=== PATIENT | male | born 1955 | race Caucasian/White ===

== ENCOUNTER 2021-05-01 06:29 | Outpatient (REF) | payer OTHER, SELFPAY | END 2021-05-01 06:30 | disposition home or self-care (01) | LOC: HO.LAB 06:29 | PROVIDERS: PCP Internal Medicine; Visit Provider Internal Medicine | DX: Z20.822 Contact with and (suspected) exposure to COVID-19 (principal) | CPT/HCPCS: C9803; U0003; U0005 ==

== ENCOUNTER 2021-07-25 06:19 | Outpatient (REF) | payer OTHER, SELFPAY | END 2021-07-25 06:20 | disposition home or self-care (01) | LOC: HO.LAB 06:19 | PROVIDERS: Visit Provider Internal Medicine | DX: Z20.822 Contact with and (suspected) exposure to COVID-19 (principal) | CPT/HCPCS: C9803; U0003; U0005 ==

== ENCOUNTER 2021-10-20 08:12 | Emergency (ER) | payer OTHER, SELFPAY ==
--- NOTE | ~2021-10-20 | CT_ITS ---
EXAMINATION: CT ABDOMEN AND PELVIS WITH CONTRAST CLINICAL INFORMATION: Hematuria. COMPARISON: None TECHNIQUE: Multidetector volumetric images were obtained from the superior aspect of the liver through the pubic symphysis following administration 85 mL of Omnipaque 350 intravenous contrast. Sagittal and coronal reformatted images were obtained on the technologist's workstation. Oral contrast: No This CT examination was performed using dose optimization techniques as appropriate, variously including the following: *Automated exposure control *Adjustment of mA and/or kV according to patient size (this includes techniques or standardized protocols for targeted exams where dose is matched to indication/reason for exam; i.e. extremities or head) *Use of iterative reconstruction technique DLP: 521 mGy-cm FINDINGS: LUNG BASES: Linear airspace disease is noted at right lung base, likely represent hypoventilatory, atelectatic changes. LIVER, GALLBLADDER, AND BILIARY TREE: Subtle subcapsular hypodensity is noted without any mass effect within the left lobe, likely represent focal area of fatty infiltration. The remainder of the liver otherwise appear unremarkable. Calcified gallstones are present within the gallbladder without evidence of any wall thickening or pericholecystic fluid or features of biliary obstruction. PANCREAS: Unremarkable. SPLEEN: Solitary circumscribed hypodensity is noted within the central part of the spleen (161:4) with Hounsfield value of 11, consistent with an incidental cyst. ADRENAL GLANDS: Mild thickening of the left adrenal gland is noted without evidence of any discrete mass. KIDNEYS AND URETERS: The kidneys are normal in size, shape, and attenuation. No hydronephrosis, hydroureter, or calculi seen. No perinephric stranding. Subcentimeter hypodensities are noted within the right kidney, too small for accurate characterization, statistically likely represent incidental cysts. BLADDER: Abnormal, suboptimally distended, shows diffuse wall thickening and mucosal enhancement and dense radiopaque vesical calculus versus phlebolith along the left lateral wall (539:4). The base of the bladder is displaced superiorly by a large heterogeneous abnormal enlarged prostate. GASTROINTESTINAL TRACT: The small and large bowel are unremarkable. The appendix is nonvisualized. ABDOMINAL WALL: No significant hernia is appreciated. LYMPH NODES: Normal. VASCULAR: Diffuse atherosclerotic disease of the aorta without aneurysm formation. PELVIC VISCERA: The prostate is markedly enlarged, quite heterogeneous and is protruding into the base of the bladder, measures 8.3 x 6.7 x 9.6 cm at its maximum transverse by anteroposterior by craniocaudal dimension. OSSEOUS STRUCTURES: No suspicious focal lesion. Moderate diffuse osteopenia. CT/CT abdomen pelvis w con IMPRESSION: 1. Abnormal markedly enlarged heterogeneous prostate, protruding into the base of the bladder, measures 8.3 x 6.7 x 9.6 cm. The bladder is suboptimally distended, shows diffuse wall thickening and mucosal enhancement. Note is also made of approximately 1 cm maximum dimension radiopaque density inseparable from the left lateral wall of the bladder, may represent vesical calculus versus phlebolith. Suboptimally evaluated due to lack of bladder distention. 2. Both upper urinary tracts appear unremarkable. 3. Mild thickening of the left adrenal gland without evidence of any discrete mass. 4. Calcified gallstones without any CT features of superimposed acute cholecystitis or biliary obstruction. 5. Subtle subcapsular hypodensity within the left lobe of the liver likely represent focal area of fatty infiltration. 6. Splenic cyst. 7. Diffuse atherosclerotic disease of the aorta and is branches. 8. Moderate diffuse osteopenia. Fleischner guidelines were followed.
[2021-10-20 08:17] VITALS: BP 117/80; PULSE 100; RESP 18; TEMP 35.8; O2SAT 98; BMI 24.4
--- NOTE | 2021-10-20 08:35 | ED.MALEGU ---
HPI - Male Genitourinary General Chief complaint: Urogenital-Male Stated complaint: Blood in urine Time Seen by Provider: 10/20/21 08:23 Source: patient Mode of arrival: ambulatory Limitations: no limitations History of Present Illness HPI Narrative: 66 y/o male with history of BPH, elevated PSA, chronic back pain who presents to the ER from home with acute onset of bloody urine, pain with urination and incomplete bladder emptying that started yesterday morning. He reports his urine is dark red and had some clots and yesterday. His symptoms have been worsening over last 24 hours. He denies any fever, chills, nausea, vomiting, diarrhea or flank pain. He does report some discomfort in his lower abdomen and suprapubic area. He is on Flomax for BPH and just saw a provider at [facility] with plan for a CT scan and a prostate biopsy for his elevated PSA. He reports a single episode of transient hematuria in the past and was told it was due to exercising too hard. ? MD Complaint: dysuria and other (Hematuria and incomplete bladder emptying) Onset (ago): day(s) (1) Duration: progressively worsening Location: abdomen Severity: moderate Severity scale (1-10): 6 Quality: aching and burning Relieving factors: none Exacerbating factors: urination Associated symptoms: Reports blood in urine and dysuria Related Data Previous Rx's Medication Instructions Recorded levofloxacin 750 mg tablet 750 mg PO DAILY #10 tab 10/20/21 Allergies Allergy/AdvReac Type Severity Reaction Status Date / Time No Known Allergies Allergy Verified 10/20/21 08:24 Review of Systems Review of Systems: Constitutional: No Fever, No Chills ENT/Mouth: No sore throat, No Rhinorrhea, No Swallowing Difficulty Cardiovascular: No Chest Pain, No SOB, No Orthopnea, No Edema Respiratory: No Cough, No Sputum, No Wheezing, No dyspnea Gastrointestinal: No Nausea, No Vomiting, No Diarrhea, + abdominal Pain, No Hematochezia, No Melena, No rectal pain, No constipation Genitourinary: + Dysuria, + Urinary Frequency, + Hematuria Musculoskeletal: No joint pain, No Myalgias Skin: No Skin Lesions, No rash Neuro: No Weakness, No Numbness, No Dizziness, No Headache Psych: No Anxiety/Panic, No Depression Heme/Lymph: No Bruising, No Lymphadenopathy Endocrine: No Polyuria, No Polydipsia PMFSH Past Medical History Medical History (Updated 10/20/21 @ 11:26 by SREE Ly) Detached retina Hernia Social History Social History Advance Directives: No Advance Directives Information Provided: No Physical Exam Vital Signs: Vital Signs: Last Vital Signs Temp 96.4 F L 10/20/21 08:17 Pulse 100 10/20/21 08:17 Resp 18 10/20/21 08:17 BP 117/80 10/20/21 08:17 Pulse Ox 98 10/20/21 08:17 BMI result Body Mass Index 24.4 Appearance: Alert. Oriented X3. No acute distress. Eyes: Pupils equal, round and reactive to light. ENT: Pharynx normal. Neck: Normal inspection. Neck supple. CVS: Normal heart rate and rhythm. Pulses normal. Respiratory: No respiratory distress. Breath sounds normal. Abdomen: Soft with mild suprapubic tenderness, no rebound or guarding. +BS x4 Skin: Skin warm and dry. Normal skin color. Normal skin turgor. No rashes. Extremities: No lower extremity edema. Neuro: Oriented X 3. No motor deficit. No sensory deficit. Course Course Course Narrative: 66-year-old male with history of BPH, elevated PSA, chronic back pain who presents with acute onset of hematuria, dysuria, frequency and incomplete bladder emptying. Concern for possible UTI. There is also concern for possible malignancy given his elevated PSA. He is due for a CT scan and a biopsy. He has been having difficulty arranging the CT scan given his insurance and referral issues. Will plan to check his urinalysis, basic lab workup and CT scan for further evaluation of his hematuria. Reevaluation(s) Reevaluation #1: Urinalysis is dark red and grossly bloody with some small clots. Bladder scan revealed about 230cc retained urine post-void. He reported quarter sized clots at home that he was passing yesterday. Will plan to place [address] way Dahl catheter and irrigate the bladder to assess for clots and obstruction. Lab workup showing normal renal function. CT scan is pending. Reevaluation #2: Urinalysis is indicative UTI with hematuria. IV Levaquin ordered with plan for a 10 day course of fluoroquinolone. After CBI was initiated his urine cleared up right away, however there was return of some dark pink coloration and small clots. No large clots visible. Reevaluation #3: CT scan showing abnormally markedly enlarged prostate protruding into the base of the bladder. It measures 8.3 x 6.7 x 9.6 cm. The bladder wall is diffusely thickened. His hematuria is mild with ongoing CBI. He is not on anticoagulation. Anticipate will be able to discontinue this and discharge him home with oral antibiotics in Urology follow-up p.r.n. he is a patient of [facility]. Additional Reevaluation(s): Levaquin infusion complete. Hematuria significantly improved. Stable for d/c home with PO abx and Urology follow up. MDM - Male Genitourinary Lab Data Result diagrams: 10/20/21 08:45 10/20/21 08:45 Labs: Lab Results 10/20/21 10/20/21 10/20/21 Range/Units 08:45 08:45 08:45 WBC 8.8 (4.8-10.8) X10*3/uL RBC 5.57 (4.60-5.80) X10*6/uL Hgb 15.1 (14.0-18.0) g/dl Hct 45.5 (42.0-52.0) % MCV 81.7 (80.0-98.0) fL MCH 27.1 (27.0-33.0) pg MCHC 33.2 (31.0-36.0) g/dl RDW 13.7 (11.0-16.0) % Plt Count 275 (160-400) X10*3/uL MPV 10.0 (9.4-12.4) fL Immature Gran % (Auto) 0.2 (0.0-0.4) % Neut % (Auto) 76.1 H (45-73) % Lymph % (Auto) 14.9 L (20-40) % [place] % (Auto) 7.5 (2-11) % Eos % (Auto) 0.6 (0-4) % Baso % (Auto) 0.7 (0-2) % Lymph # (Auto) 1.3 (1.2-4.9) X10*3/uL [place] # (Auto) 0.7 (0.1-1.2) X10*3/uL Eos # (Auto) 0.1 (0.0-0.4) X10*3/uL Baso # (Auto) 0.1 (0.0-0.2) X10*3/uL Abs Immat Gran (auto) 0.02 (0.00-0.03) X10*3/uL Absolute Neuts (auto) 6.7 (2.0-8.3) x10*3/uL Absolute Nucleated RBC 0.000 (0.0-0.012) X10*3/uL Nucleated RBC % (auto) 0.0 (0.0-0.2) /100WBC PT 12.8 (9.9-13.0) SEC INR 1.1 (0.9-1.1) APTT 34.5 (24.1-38.0) SEC Sodium 140 (135-145) mmol/L Potassium 4.1 (3.3-5.1) mmol/L Chloride 107 (96-108) mmol/L Carbon Dioxide 21 L (22-29) mmol/L Anion Gap 16 (12-20) BUN 32 H (9-16) mg/dL Creatinine 1.11 (0.5-1.4) mg/dL Estim Creat Clear Calc 75.9 Estimated GFR > 60 Random Glucose 98 (60-115) mg/dL Calcium 9.8 (8.4-10.2) mg/dL Magnesium 2.3 (1.6-2.6) mg/dL Total Bilirubin 0.7 (0.0-1.0) mg/dL Direct Bilirubin 0.3 (0.0-0.5) mg/dL AST 17 (5-37) U/L ALT 17 (0-40) U/L Alkaline Phosphatase 66 (39-117) U/L Total Protein 7.3 (6.5-8.0) g/dL Albumin 4.6 (3.5-5.0) g/dL Urine Color Urine Appearance Urine pH (5.0-8.0) Ur Specific [place] (1.005-1.025) Urine Protein (NEG-TRACE) MG/DL Urine Glucose (UA) (NEG) MG/DL Urine Ketones (NEG) MG/DL Urine Blood (NEG) Urine Nitrite (NEG) Ur Leukocyte Esterase (NEG) Urine RBC (0) /HPF Urine WBC (0-4) /HPF Ur Squamous Epith Cells /LPF Urine Bacteria /LPF 10/20/21 Range/Units 09:32 WBC (4.8-10.8) X10*3/uL RBC (4.60-5.80) X10*6/uL Hgb (14.0-18.0) g/dl Hct (42.0-52.0) % MCV (80.0-98.0) fL MCH (27.0-33.0) pg MCHC (31.0-36.0) g/dl RDW (11.0-16.0) % Plt Count (160-400) X10*3/uL MPV (9.4-12.4) fL Immature Gran % (Auto) (0.0-0.4) % Neut % (Auto) (45-73) % Lymph % (Auto) (20-40) % [place] % (Auto) (2-11) % Eos % (Auto) (0-4) % Baso % (Auto) (0-2) % Lymph # (Auto) (1.2-4.9) X10*3/uL [place] # (Auto) (0.1-1.2) X10*3/uL Eos # (Auto) (0.0-0.4) X10*3/uL Baso # (Auto) (0.0-0.2) X10*3/uL Abs Immat Gran (auto) (0.00-0.03) X10*3/uL Absolute Neuts (auto) (2.0-8.3) x10*3/uL Absolute Nucleated RBC (0.0-0.012) X10*3/uL Nucleated RBC % (auto) (0.0-0.2) /100WBC PT (9.9-13.0) SEC INR (0.9-1.1) APTT (24.1-38.0) SEC Sodium (135-145) mmol/L Potassium (3.3-5.1) mmol/L Chloride (96-108) mmol/L Carbon Dioxide (22-29) mmol/L Anion Gap (12-20) BUN (9-16) mg/dL Creatinine (0.5-1.4) mg/dL Estim Creat Clear Calc Estimated GFR Random Glucose (60-115) mg/dL Calcium (8.4-10.2) mg/dL Magnesium (1.6-2.6) mg/dL Total Bilirubin (0.0-1.0) mg/dL Direct Bilirubin (0.0-0.5) mg/dL AST (5-37) U/L ALT (0-40) U/L Alkaline Phosphatase (39-117) U/L Total Protein (6.5-8.0) g/dL Albumin (3.5-5.0) g/dL Urine Color BROWN A Urine Appearance TURBID Urine pH 6.5 (5.0-8.0) Ur Specific [place] 1.025 (1.005-1.025) Urine Protein 3+ H (NEG-TRACE) MG/DL Urine Glucose (UA) SEE NOTE (NEG) MG/DL Urine Ketones SEE NOTE (NEG) MG/DL Urine Blood 3+ H (NEG) Urine Nitrite POS H (NEG) Ur Leukocyte Esterase 2+ H (NEG) Urine RBC TNTC H (0) /HPF Urine WBC TNTC H (0-4) /HPF Ur Squamous Epith Cells 1+ /LPF Urine Bacteria 2+ /LPF Critical Care Time Critical Care Time Critical Care Time: Yes Total Critical Care Time: 38 Attestation: I have personally provided critical care time exclusive of time spent on separately billable procedures. Time includes review of lab data, radiology results, frequent reassessments, and monitoring for potential decompensation. Intervention performed as documented. Discharge Plan Discharge Clinical Impression: Urinary tract infection, Gross hematuria, Enlarged prostate Patient Disposition: Home, Self-Care Instructions: Enlarged Prostate (BPH) (ED), Urinary Tract Infection in Men (DC), Hematuria (ED) Additional Instructions: Your urine test today showed you have a bladder infection. Your given the 1st dose of IV antibiotics today in the emergency room. Start taking the prescribed oral antibiotic, starting tomorrow. Complete the entire course. Increase oral hydration, drink plenty of water. Your CT scan showed very large prostate gland, recommend following back up with [facility] for biopsy. If you have worsening symptoms despite antibiotic therapy call your doctor or come back to the ER for further evaluation. Prescriptions: New levofloxacin 750 mg tablet 750 mg PO DAILY Qty: 10 0RF Referrals: Stephen Davis MD [Primary Care Provider] - 2 days (UTI with gross hematuria, enlarged prostate gland.) Stand Alone Forms: Work/School Release
[2021-10-20] MEDS: 0.9 % Sodium Chloride 1,000 ML 999 ML IVCONT (08:46)
[2021-10-20 08:52] LABS: MANUAL DIFF FLAG NO
[2021-10-20 09:01] LABS: Basophils Absolute Auto 0.1 X10*3/uL (0.0-0.2); Basophils Percent Auto 0.7 % (0-2); Eosinophils Absolute Auto 0.1 X10*3/uL (0.0-0.4); Eosinophils Percent Auto 0.6 % (0-4); Hematocrit 45.5 % (42.0-52.0); Hemoglobin 15.1 g/dl (14.0-18.0); Imm Gran Abs Auto 0.02 X10*3/uL (0.00-0.03); Imm Gran Pct Auto 0.2 % (0.0-0.4); Lymphocytes Absolute Auto 1.3 X10*3/uL (1.2-4.9); Lymphocytes Percent Auto 14.9 % (20-40); Mean Corpuscular HGB Conc 33.2 g/dl (31.0-36.0); Mean Corpuscular Hemoglobin 27.1 pg (27.0-33.0); Mean Corpuscular Volume 81.7 fL (80.0-98.0); Monocytes Absolute Auto 0.7 X10*3/uL (0.1-1.2); Monocytes Percent Auto 7.5 % (2-11); Neutrophils Absolute Auto 6.7 x10*3/uL (2.0-8.3); Neutrophils Percent Auto 76.1 % (45-73); Platelet Count 275 X10*3/uL (160-400); Red Blood Count 5.57 X10*6/uL (4.60-5.80); Red Cell Distribution Width 13.7 % (11.0-16.0); White Blood Count 8.8 X10*3/uL (4.8-10.8)
[2021-10-20 09:02] LABS: INTERNATIONAL NORM RATIO 1.1 (0.9-1.1); Prothrombin Time 12.8 SEC (9.9-13.0)
[2021-10-20 09:05] LABS: Partial Thromboplastin Time 34.5 SEC (24.1-38.0)
[2021-10-20 09:15] LABS: Alanine Aminotransferase 17 U/L (0-40); Albumin Level 4.6 g/dL (3.5-5.0); Alkaline Phosphatase 66 U/L (39-117); Anion Gap 16 (12-20); Aspartate Amino Transferase 17 U/L (5-37); Bilirubin Direct 0.3 mg/dL (0.0-0.5); Bilirubin Total 0.7 mg/dL (0.0-1.0); Blood Urea Nitrogen 32 mg/dL (9-16); Calcium 9.8 mg/dL (8.4-10.2); Carbon Dioxide 21 mmol/L (22-29); Chloride 107 mmol/L (96-108); Creatinine Clr Calc Pharmacy 75.9; Estimated Glomerular Filt Rate > 60; Glucose Random 98 mg/dL (60-115); Magnesium 2.3 mg/dL (1.6-2.6); Potassium 4.1 mmol/L (3.3-5.1); Sodium 140 mmol/L (135-145); Total Protein 7.3 g/dL (6.5-8.0)
--- NOTE | 2021-10-20 09:41 | PC.NURSE ---
Pt voided dark red urine for urine sample. PCT in to bedside for bladder scan to check PVR.
--- NOTE | 2021-10-20 09:41 | PC.NURSE ---
PVR 221, provider aware
[2021-10-20 09:55] LABS: Appearance Urine TURBID; Color Urine BROWN; Leukocyte Esterase Urine 2+ (NEG); Nitrite Urine POS (NEG); PH 6.5 (5.0-8.0); Specific Gravity - Urine 1.025 (1.005-1.025); UACC Culture Trigger YES; Urine Blood 3+ (NEG); Urine Protein 3+ MG/DL (NEG-TRACE)
[2021-10-20 10:00] LABS: Bacteria Urine 2+ /LPF; RBC Urine TNTC /HPF (0); Squamous Epithelial Cell Urine 1+ /LPF; WBC Urine TNTC /HPF (0-4)
[2021-10-20] MEDS: iohexoL 350 MG/ML 100 ML INFUS..BTL IV (10:24)
[2021-10-20] MEDS: Phenazopyridine HCL 100 MG TABLET PO (10:40)
[2021-10-20] MEDS: Lidocaine HCl 2 % Urojet 10 ML JEL.PF.APP TOPICAL (10:40)
[2021-10-20] MEDS: levoFLOXacin/D5W 750 MG/150 ML PIGGYBACK 100 MG IV (11:07)
[2021-10-20 13:07] VITALS: BP 139/78; PULSE 77; RESP 15; O2SAT 98
--- NOTE | 2021-10-20 13:08 | PC.NURSE ---
gerardo cath removed at this time. patient noted to have lightly tea colored urine. patient aware of need to continue to aggressive hydration at home to prevent formation of new clots. patient in no obvious distress at this time.
== END 2021-10-20 13:11 | disposition home or self-care (01) ==
PROVIDERS: Physician Assistant; Emergency Provider Emergency Medicine Emergency Medical Services; PCP Internal Medicine
DX: N39.0 Urinary tract infection, site not specified (principal); N40.0 Benign prostatic hyperplasia without lower urinary tract symptoms; R31.9 Hematuria, unspecified; R30.0 Dysuria; Z79.899 Other long term (current) drug therapy
CPT/HCPCS: 36415; 51702; 74177; 80048; 80076; 81001; 83735; 85025; 85610; 85730; 87086; 87088; 96365; 96366; 99284; J1956; Q9967

== ENCOUNTER → 2021-11-13 09:47 | Outpatient (BNVA) | payer OTHER, SELFPAY | PROVIDERS: PCP Internal Medicine; Visit Provider Urology | DX: N40.1 Benign prostatic hyperplasia with lower urinary tract symptoms (principal); N39.0 Urinary tract infection, site not specified; R31.0 Gross hematuria; A49.9 Bacterial infection, unspecified | CPT/HCPCS: 99202 ==

== ENCOUNTER 2021-12-19 06:59 | Outpatient (REF) | payer OTHER, SELFPAY ==
[2021-12-19 08:48] LABS: COVID-19 Test Negative (Negative)
== END 2021-12-19 07:00 | disposition home or self-care (01) ==
LOC: HO.LAB 06:59
PROVIDERS: Visit Provider Internal Medicine
DX: Z20.822 Contact with and (suspected) exposure to COVID-19 (principal)
CPT/HCPCS: 87635; C9803

== ENCOUNTER → 2022-01-01 09:04 | Outpatient (BNVA) | payer OTHER, SELFPAY | PROVIDERS: PCP Internal Medicine; Visit Provider Urology | DX: N40.1 Benign prostatic hyperplasia with lower urinary tract symptoms (principal); N13.8 Other obstructive and reflux uropathy; N39.0 Urinary tract infection, site not specified; R31.0 Gross hematuria; A49.9 Bacterial infection, unspecified | CPT/HCPCS: 52000 ==

== ENCOUNTER → 2022-01-16 08:49 | Outpatient (BNVA) | payer OTHER, SELFPAY | PROVIDERS: PCP Internal Medicine; Referring Provider Internal Medicine; Visit Provider Surgery | DX: I83.90 Asymptomatic varicose veins of unspecified lower extremity (principal) ==

== ENCOUNTER 2022-02-27 08:09 | Outpatient (REF) | payer OTHER, SELFPAY ==
--- NOTE | ~2022-02-27 | US_ITS ---
EXAMINATION: US LOWER EXTREMITY VENOUS (REFLUX EXAM), LEFT CLINICAL INDICATION: Left lower extremity varicose veins. COMPARISON: None. TECHNIQUE: Color flow triplex imaging and compression Doppler was performed to evaluate both the deep and the superficial systems of the lower extremity. To evaluate the superficial system, the examination was performed in the upright position. Color-flow Doppler ultrasound and compression ultrasound were utilized. In addition, maneuvers were utilized to demonstrate reflux. FINDINGS: 1. DEEP VENOUS DOPPLER ULTRASOUND: Common Femoral Vein: Compressible, normal respiratory variation and augmented flow. FEMORAL VEIN: Compressible, normal color flow and augmentation. POPLITEAL VEIN: Compressible, normal augmentation. DEEP REFLUX: There is greater than 0.9 seconds of reflux within the common femoral vein and greater than 0.8 seconds of reflux within the popliteal vein. There is no evidence of a Wilkins's cyst. 2. SUPERFICIAL VENOUS DOPPLER ULTRASOUND: GREAT SAPHENOUS VEIN: Saphenofemoral Junction: 1.5 cm; greater than 2.5 seconds of reflux. Proximal Thigh: 1.5 cm; No evidence of reflux. Mid Thigh: 0.7 cm; greater than 2.4 seconds of reflux Above Knee: 0.6 cm; greater than 3.4 seconds of reflux At Knee: 0.6 cm; greater than 3.4 seconds of reflux Below Knee: 0.8 cm; greater than 3.0 seconds of reflux Mid Calf: 0.5 cm; greater than 1.5 seconds of reflux DUPLICATED GREAT SAPHENOUS VEIN: None. SMALL SAPHENOUS VEIN: Proximal: 0.2 cm; No evidence of reflux. Distal: 0.3 cm; No evidence of reflux. VEIN OF GIACOMINI: None imaged. PERFORATORS: Distal calf measuring 4 mm, no evidence of reflux. VARICOSITIES: Proximal thigh and throughout the calf measuring between 4 and 5 mm. VARICOSITIES demonstrate greater than 2 seconds of reflux. US/US venous duplex LE LT IMPRESSION: 1. Left great saphenous venous insufficiency beginning at the saphenofemoral junction. 2. Multiple refluxing left lower extremity varicosities. 3. Deep venous insufficiency involving the common femoral and popliteal veins. 4. No evidence of DVT.
[2022-02-27 10:22] LABS: Prostate Specific Antigen 16.24 ng/mL (<0.05-4.0)
== END 2022-02-27 08:10 | disposition home or self-care (01) ==
LOC: HO.US 08:09
PROVIDERS: Urology; Visit Provider Surgery
DX: Z12.5 Encounter for screening for malignant neoplasm of prostate (principal); N13.8 Other obstructive and reflux uropathy; N40.1 Benign prostatic hyperplasia with lower urinary tract symptoms; I83.90 Asymptomatic varicose veins of unspecified lower extremity
CPT/HCPCS: 36415; 84153; 93971

== ENCOUNTER → 2022-03-06 09:22 | Outpatient (BNVA) | payer OTHER, SELFPAY | PROVIDERS: PCP Internal Medicine; Visit Provider Urology | DX: N40.1 Benign prostatic hyperplasia with lower urinary tract symptoms (principal); N13.8 Other obstructive and reflux uropathy; R31.0 Gross hematuria; N39.0 Urinary tract infection, site not specified; A49.9 Bacterial infection, unspecified | CPT/HCPCS: 51798 ==

== ENCOUNTER 2022-04-21 09:10 | Day surgery (SDC) | payer OTHER, SELFPAY ==
[2022-04-15 12:06] VITALS: BMI 23.6
[2022-04-21] VITALS (21 sets, daily range): BP systolic 89–127; BP diastolic 48–75; PULSE 42–69; RESP 14–18; TEMP 36.1–36.6; O2SAT 94–98; BMI 23.1
[2022-04-21] MEDS: Acetaminophen 325 MG TABLET 650 MG PO ×2 (09:55→13:58)
--- NOTE | 2022-04-21 10:18 | P.CONAN_ITS ---
FORM[facility] Active Problems Active Problems: All Active Problems (Updated 04/21/22 @ 07:58 by Rod Phillips MD) Elevated PSA (Acute) BPH w urinary obs/LUTS (Acute) UTI (urinary tract infection), bacterial (Acute) Gross hematuria (Acute) Varicose vein of leg (Acute) Past Medical History Medical History Detached retina Hernia Family History Family History Sister Melanoma Family history of problems with anesthesia: No Surgical History Surgical History History of eye surgery History of umbilical hernia repair Hx of varicose vein ligation History of Problems with Anesthesia: No Social History Social History Alcohol intake: never Patient Tobacco Use Status: Never used Tobacco Tobacco use type: Cigarette Use of substances other than those prescribed or required for medical reasons: No Are you DNR?: No Advance Directives: No Advance Directives Information Provided: Yes Meds Allergies Allergy/AdvReac Type Severity Reaction Status Date / Time No Known Allergies Allergy Verified 04/10/22 10:42 Active Medications: Current Medications Lactated Ringer's (Lr) 1,000 mls @ 50 mls/hr IVCONT .Q20H PERNELL Exam Exam Date and Time: April 21, 2022 1018 Height,Weight and Vital Signs: Height 6 ft 1 in Weight 79.379 kg Last Vital Signs Temp 97.9 F 04/21/22 09:45 Pulse 69 04/21/22 09:45 Resp 17 04/21/22 09:45 BP 114/75 04/21/22 09:45 Pulse Ox 96 04/21/22 09:45 O2 Del Method 04/21/22 09:45 Airway Mallampati Class: II TM Dist: >3cm Neck ROM: Full Heart: rrr Lungs: cta Assessment and Plan Assessment Anesthesia Assessment: Anesthesia Plan Discussed and Chart Reviewed Final Anesthetic Review Family History of Problems with Anesthesia: No History of Problems with Anesthesia: No NPO: Yes ASA Class: II Final Preanesthetic Review: No Changes in Pt Med Stat, Meds/Allgs Chart Reviewed and Consent Obtained/Reviewed Patient Risk: Intermediate Procedure Risk: Intermediate Anesthetic Plan Anesthetic Plan: GA Disposition: Standard PACU
--- NOTE | 2022-04-21 10:41 | MHC.SHP ---
Pre-Procedural Eval Section A Date of Service: 04/21/22 The patient is an INPATIENT: No Changes since office visit: No Cold of Flu in the past 2 weeks, No New Medical Problems, No Changes in Medication and No Patient answered all questions The History & Physical has been completed within 30 days and I have reviewed it.: Yes Section B Chief Complaint: bph Details of Present Illness: elevated PSA with BPH - plan GreenLight laser prostate with prostate biopsy Relevant Family History (Specify if Yes): No Relevant Social History: None Present Medications: see Short Stay Collaborative assessment Medical History: No relevant PMH History of Previous Operations: Relevant previous surgery/procedure and date(s) Allergies: Allergies Allergy/AdvReac Type Severity Reaction Status Date / Time No Known Allergies Allergy Verified 04/10/22 10:42 Review of Systems Sugical H&P ROS: Negative: Constitution, Cardiovascular, Respiratory, Neurological, Psychiatric, Hem-Onc, Allergic/Immunologic, Gastrointestinal, Genitourinary, Musculoskeletal, Integumentary, Endocrine and Eyes/Ears/Nose/Throat Exam Surgical H&P Exam: Normal: HEENT, Normal: Heart, Normal: Lungs, Normal: Extremities, Normal: Abdomen, Normal: Skin and Normal: Neurological Plan Diagnosis/Plan: Unchanged ( GreenLight laser prostate, prostate biopsy) I have reviewed the history and physical and performed a pertinent physical examination on my patient. No changes have occurred unless specified.
--- NOTE | 2022-04-21 12:45 | P.OP_ITS ---
Operative Note Operative Note Date of Service: 04/21/22 Narrative: PreOperative Diagnosis: Bladder outlet obstruction, elevated PSA Post Operative Diagnosis: Bladder outlet obstruction, elevated PSA Procedure: 1.) transrectal ultrasound measurement of prostate 2) transrectal ultrasound-guided biopsy of prostate 3)GreenLight Laser Enucleation of the prostate 4) right stent placement Surgeon: Dr Rod Phillips Anesthesia: General History of bladder outlet obstruction. Treated with alpha-mike and other medications. Still with symptoms. On cystoscopy in office has trilobar prostate enlargement.. Recommendation for prostate procedure with laser enucleation of prostate. In addition has PSA that after 4 months of treatment with finasteride remains at 16. Recommendation prostate biopsy. It has been discussed. Focus was placed on development of retrograde examination which is a normal part of this procedure. Procedure: After informed consent was verified the patient was brought to the operating room and placed in a supine position. Anesthesia was administered per protocol. Patient was placed in modified dorsal lithotomy position and prepped and draped in a sterile fashion. Safety pause time-out was confirmed. Antibiotics have been given. Iodine 10cc with Gel was placed per rectum Ultrasound probe was placed per rectum The prostate was measured in 3 dimensions Total volume equals 210 gm There were no cystic structures and no calcifications noted and the prostate was homogeneous in nature A ultrasound-guided pudendal nerve block was performed using 10 cc of 1% lidocaine. 8 cc was placed at the base and 2 cc of the apex. A 12 core biopsy was performed with 6 cores each side. Two cores were taken at the apex, mid and base. Cores were spaced between lateral and medial. Twenty-four Salvadorean laser cystoscope was inserted per urethra. No abnormalities found the anterior posterior urethra. The bladder was filled on both ureteric orifices were seen in normal position Right ureteric orifice was very close to the Edge of the extremely large median lobe. Using a GreenLight laser settings of 80 w incisions were made at the 5 and 7 o'clock position. They were taken down and then laterally on each side. They were brought from the bladder neck down to the level of the veru. These defined the lateral aspects of the median lobe area. The large median lobe was divided down the middle into 2 separate pieces. The median lobe was ablated and enucleated tissue removed. A great deal of time was spent removing the median lobe tissue. As the case progresses a decision was made not to proceed with me moving lateral lobes which is concentrating on clearing the median lobe area as he had an extremely large prostate. The left ureteric orifice was seen in normal position. The right ureteric orifice was retracted into the incision area from secondary laser scatter. At the point where we decided to complete the procedure the right ureteric orifice had been retracted. The bipolar resectoscope loop was placed. And on cutting used to expose the right ureteric orifice. A Sensor guidewire was placed up the right ureteric orifice and a 6Fr by 28 cm double-J stent was placed in order to let the ureteric orifice heal in an open position. When this was completed debris and pieces of prostate removed from the bladder. The apical area was reviewed in any stray ooze was controlled. A 22 [place] 30 cc balloon Dahl catheter was placed over stylet into the bladder. Clear efflux was obtained. 30 cc was placed in the balloon and gentle traction was placed. A snap was used to hold tension once the patient will be moved and transported. Once transportation its finish this novel be removed. A belladonna and opiate suppository was placed for postprocedure pain management. He tolerated procedure well was extubated in the operating and transferred in a stable condition to the recovery area. Total Power 190 kW 46 lasing time Pathology: Prostate tissue Drains: Dahl catheter
--- NOTE | 2022-04-21 14:22 | ECG_ITS ---
Test Reason : CP Blood Pressure : / mmHG Vent. Rate : 052 BPM Atrial Rate : 052 BPM P-R Int : 212 ms QRS Dur : 108 ms QT Int : 538 ms P-R-T Axes : 041 050 027 degrees QTc Int : 500 ms Sinus bradycardia with 1st degree A-V block with Premature atrial complexes Low voltage QRS Nonspecific ST abnormality Prolonged QT Abnormal ECG When compared with ECG of 21-APR-2022 17:29, Premature atrial complexes are now Present Referred By: Rod Phillips Electronically Signed By:SABRINA BYRNE
--- NOTE | 2022-04-21 15:05 | PC.NURSE ---
PATIENT ARRIVED TO DISCHARGE AREA. PT STATED HE WANTED TO GET UP TO THE RESTROOM. PATIENT NOTED TO BE UNSTEADY. THIS RN ASKED HOW PATIENT WAS FEELING AND HE STATED HE WAS FEELING DIZZY. PATIENT BACK IN WC AND THE ANESTHESIOLOGIST CAME TO RE ACCESS. PATIENT'S SBP IN THE 70'S AND 80'S, HR IN THE 40'S AND 50'S. PT BROUGHT BACK TO PACU. IV INITIATED BY BAIT PACKER AND FLUIDS TO BE HUNG. PT'S CALLED TO GIVE HER AN UPDATE.
[2022-04-21 15:46] LABS: MANUAL DIFF FLAG NO
[2022-04-21 15:47] LABS: Basophils Percent Auto 0.4 % (0-2); Eosinophils Percent Auto 0.1 % (0-4); Hematocrit 35.3 % (42.0-52.0); Hemoglobin 11.5 g/dl (14.0-18.0); Imm Gran Abs Auto 0.03 X10*3/uL (0.00-0.03); Imm Gran Pct Auto 0.3 % (0.0-0.4); Lymphocytes Absolute Auto 0.6 X10*3/uL (1.2-4.9); Lymphocytes Percent Auto 6.1 % (20-40); Mean Corpuscular HGB Conc 32.6 g/dl (31.0-36.0); Mean Corpuscular Volume 82.9 fL (80.0-98.0); Mean Platelet Volume 10.2 fL (9.4-12.4); Monocytes Absolute Auto 0.4 X10*3/uL (0.1-1.2); Monocytes Percent Auto 4.6 % (2-11); Neutrophils Absolute Auto 8.2 x10*3/uL (2.0-8.3); Neutrophils Percent Auto 88.5 % (45-73); Platelet Count 161 X10*3/uL (160-400); Red Blood Count 4.26 X10*6/uL (4.60-5.80); Red Cell Distribution Width 15.6 % (11.0-16.0); White Blood Count 9.2 X10*3/uL (4.8-10.8)
[2022-04-21 15:53] LABS: INTERNATIONAL NORM RATIO 1.1 (0.9-1.1); Prothrombin Time 13.1 SEC (10.0-13.1)
[2022-04-21 15:56] LABS: Partial Thromboplastin Time 24.4 SEC (26.0-36.4)
[2022-04-21 16:05] LABS: Anion Gap 14 (12-20); Blood Urea Nitrogen 25 mg/dL (9-16); Calcium 8.5 mg/dL (8.4-10.2); Carbon Dioxide 22 mmol/L (22-29); Chloride 112 mmol/L (96-108); Creatinine Clr Calc Pharmacy 87.9; Estimated Glomerular Filt Rate > 60; Glucose Random 148 mg/dL (60-115); Potassium 4.7 mmol/L (3.3-5.1); Sodium 143 mmol/L (135-145)
[2022-04-21] MEDS: Tranexamic Acid 1,000 MG in 0.9 % Sodium Chloride 50 ML 360 MG IV (16:37)
[2022-04-21 17:08] LABS: Fibrinogen 382 MG/DL (259-690)
--- NOTE | 2022-04-21 18:35 | PC.NURSE ---
1834 Dr. Cartwright at bedside to review consult with cardiology Dr. Reddy regarding EKG recent. Patient asymptomatic no sob, dizziness, chest pain. Per cadiology EKG recent taken today no acute changes. Per Dr. Cartwright patient cleared to discharge to home. Patient reports previous hx EKG test at [facility]. Call placed to [facility] who reports patient hx previous EKG incomplete RBBB.
--- NOTE | 2022-04-22 14:16 | ECG_ITS ---
Test Reason : URO Blood Pressure : / mmHG Vent. Rate : 051 BPM Atrial Rate : 051 BPM P-R Int : 202 ms QRS Dur : 114 ms QT Int : 540 ms P-R-T Axes : -23 054 034 degrees QTc Int : 497 ms Sinus bradycardia Prolonged QT Abnormal ECG No previous ECGs available Referred By: Rod Phillips Electronically Signed By:SABRINA BYRNE
== END 2022-04-21 18:55 | disposition home or self-care (01) ==
PROVIDERS: Anesthesiology; Visit Provider Urology
PROC: (CPT 52648; principal; 2022-04-21 10:50)
DX: N40.1 Benign prostatic hyperplasia with lower urinary tract symptoms (principal); N13.8 Other obstructive and reflux uropathy; R97.20 Elevated prostate specific antigen [PSA]; Z79.899 Other long term (current) drug therapy; Z98.890 Other specified postprocedural states
CPT/HCPCS: 52649; 55700; 52332; 36415; 76942; 80048; 85025; 85384; 85610; 85730; 88305; 93005; C1769; C2617; J1100; J1956; J2250; J2405; J3010; Q9968

== ENCOUNTER → 2022-04-24 10:04 | Outpatient (BNVA) | payer OTHER, SELFPAY | PROVIDERS: PCP Internal Medicine; Visit Provider Urology | DX: N13.8 Other obstructive and reflux uropathy (principal) | CPT/HCPCS: 51700; 51798 ==

== ENCOUNTER 2022-04-26 07:10 | Emergency (ER) | payer OTHER, SELFPAY ==
[2022-04-26 07:30] VITALS: BP 123/80; PULSE 92; RESP 20; TEMP 36.7; O2SAT 99; BMI 23.1
--- NOTE | 2022-04-26 08:11 | PC.NURSE ---
attempted to insert a gerardo cath but unsuccessful at this time,
--- NOTE | 2022-04-26 08:33 | ED_ITS ---
HPI - Male Genitourinary General Chief complaint: Urogenital-Male Stated complaint: Unable to Urinate S/P Surgery Time Seen by Provider: 04/26/22 08:10 Source: patient Mode of arrival: ambulatory Limitations: no limitations History of Present Illness HPI Narrative: Patient presents emergency department for evaluation of inability to urinate. He states on Thursday, 5 days ago, he had a GreenLight procedure done by Dr. Phillips for his prostate. He was able to void initially in office. He has been on antibiotics. He has been voiding small frequent amounts since then, however he states that the last time he was able to urinate was yesterday evening at 1700, approx 15 hours ago. Is having suprapubic pain/pressure. Related Data Previous Rx's Medication Instructions Recorded finasteride 5 mg tablet 5 mg PO DAILY 90 days #90 tabs 11/13/21 terazosin 10 mg capsule 10 mg PO BEDTIME 90 days #90 caps 11/13/21 sulfamethoxazole 400 1 tab PO DAILY #10 tabs 04/21/22 mg-trimethoprim 80 mg tablet (Bactrim) tranexamic acid 650 mg tablet 650 mg PO BID 5 days #10 tabs 04/21/22 Allergies Allergy/AdvReac Type Severity Reaction Status Date / Time No Known Allergies Allergy Verified 04/22/22 09:15 Review of Systems Review of Systems: Constitutional : No Weight loss, No Fever, No Chills ENT/Mouth :? No sore throat, No Rhinorrhea Eyes: No Swelling, No Redness Cardiovascular : No Chest Pain, No SOB, No Edema Respiratory : No Cough, No Sputum, No Wheezing Gastrointestinal : No Nausea, no Vomiting, no Diarrhea, positive abdominal pain, No Hematochezia, No Melena Genitourinary : Positive urinary retention Musculoskeletal : No joint pain, No Myalgias, No Joint Swelling Skin : No Skin Lesions, No rash Neuro : No Weakness, No Numbness, No Dizziness, No Headache Psych : No Anxiety/Panic, No Depression Heme/Lymph: No Bruising, No Lymphadenopathy Endocrine : No Polyuria, No Polydipsia Yes all other systems are reviewed and are negative [facility] Past Medical History Attestation statement: The following information was validated with the patient. Source: old records reviewed Medical History Detached retina Hernia Surgical History History of eye surgery History of umbilical hernia repair Hx of varicose vein ligation Family History Family History Sister Melanoma Social History Social History Alcohol intake: never Patient Tobacco Use Status: Former Tobacco user Quit Date: 20 years ago Tobacco use type: Cigarette Advance Directives: Yes Advance Directives Information Provided: Yes Advance Directives on File: No Physical Exam Vital Signs: Vital Signs: Last Vital Signs Temp 98.1 F 04/26/22 07:30 Pulse 92 04/26/22 07:30 Resp 20 04/26/22 07:30 BP 123/80 04/26/22 07:30 Pulse Ox 99 04/26/22 07:30 O2 Del Method 04/26/22 07:30 BMI result Body Mass Index 23.1 Appearance: Alert.?Oriented to person, place and time. No acute distress.?Normal affect. Eyes: Pupils equal, round and reactive to light.? ENT: Pharynx normal.?? Neck: Normal inspection.? Neck supple.?? CVS: Heart sounds normal. Normal heart rate and rhythm.? Pulses normal.?? Respiratory: No respiratory distress.? Lung sounds clear to auscultation bilat erally?? Abdomen: Soft and non-tender. Normoactive bowel sounds. Palpable bladder distension Skin: Skin warm and dry.? Normal skin color.? Extremities: No lower extremity edema.? Neuro: Moves all extremities spontaneously. Sensation intact bilaterally. No motor deficits Ambulates with normal steady gait. Course Course Course Narrative: Patient is a 67-year-old male with a past medical history of urinary tract infection, BPH with bladder outlet obstruction, on 04/21/2022 underwent ultrasound-guided biopsy of prostate, GreenLight laser enucleation of the prostate, and right stent placement. Currently prescribed Bactrim twice daily, and TXA twice daily postoperatively. Bladder scan volume of 999 nursing staff unable to insert Dahl catheter. Uro jet utilized with 16 [place] coude catheter, patient placed in Trendelenburg, able to successfully insert catheter, with active urinary drainage. Suprapubic pain relieved after insertion. Will obtain CBC, CMP, and urinalysis. Reevaluation(s) Reevaluation #1: CBC reveals a normocytic anemia. CMP overall unremarkable. Urinalysis reveals small mass leuk esterase, currently on Bactrim, nitrate negative, large amounts of blood improved team to the urine. At this time will discharge patient home with Dahl catheter in place, discussed management of Dahl catheterat home, reviewed worsening signs and symptoms return back to the emergency department for, advised contacting Dr. Phillips's office first thing Thursday morning to arrange for a follow-up visit. Patient verbalized understanding, all questions were answered, he was discharged home in stable condition MDM - Male Genitourinary Medical Records Attestation: I reviewed the patient's medical records. Lab Data Attestation: I reviewed the patient's lab results. Result diagrams: 04/26/22 09:24 04/26/22 09:24 Labs: Lab Results 04/26/22 04/26/22 04/26/22 Range/Units 09:24 09:24 09:24 WBC 8.4 (4.8-10.8) X10*3/uL RBC 4.40 L (4.60-5.80) X10*6/uL Hgb 11.8 L (14.0-18.0) g/dl Hct 35.7 L (42.0-52.0) % MCV 81.1 (80.0-98.0) fL MCH 26.8 L (27.0-33.0) pg MCHC 33.1 (31.0-36.0) g/dl RDW 15.1 (11.0-16.0) % Plt Count 190 (160-400) X10*3/uL MPV 10.1 (9.4-12.4) fL Immature Gran % (Auto) 0.5 H (0.0-0.4) % Neut % (Auto) 72.9 (45-73) % Lymph % (Auto) 15.2 L (20-40) % [place] % (Auto) 10.0 (2-11) % Eos % (Auto) 0.7 (0-4) % Baso % (Auto) 0.7 (0-2) % Lymph # (Auto) 1.3 (1.2-4.9) X10*3/uL [place] # (Auto) 0.8 (0.1-1.2) X10*3/uL Eos # (Auto) 0.1 (0.0-0.4) X10*3/uL Baso # (Auto) 0.1 (0.0-0.2) X10*3/uL Abs Immat Gran (auto) 0.04 H (0.00-0.03) X10*3/uL Absolute Neuts (auto) 6.1 (2.0-8.3) x10*3/uL Absolute Nucleated RBC 0.000 (0.0-0.012) X10*3/uL Nucleated RBC % (auto) 0.0 (0.0-0.2) /100WBC Sodium 140 (135-145) mmol/L Potassium 4.2 (3.3-5.1) mmol/L Chloride 108 (96-108) mmol/L Carbon Dioxide 21 L (22-29) mmol/L Anion Gap 15 (12-20) BUN 29 H (9-16) mg/dL Creatinine 1.05 (0.5-1.4) mg/dL Estim Creat Clear Calc 78.7 Estimated GFR > 60 Random Glucose 101 (60-115) mg/dL Calcium 8.8 (8.4-10.2) mg/dL Total Bilirubin 0.8 (0.0-1.0) mg/dL AST 17 (5-37) U/L ALT 21 (0-40) U/L Alkaline Phosphatase 52 D (39-117) U/L Total Protein 6.1 L (6.5-8.0) g/dL Albumin 3.9 (3.5-5.0) g/dL Urine Color Dark Yellow Urine Appearance Cloudy Urine pH 5.5 (5.0-9.0) Ur Specific [place] 1.020 (1.005-1.025) Urine Protein 100 (2+) H (Neg-Trace) mg/dL Urine Glucose (UA) Negative (Negative) mg/dL Urine Ketones Trace (Negative) mg/dL Urine Blood Large (3+) H (Negative) Urine Nitrite Negative (Negative) Ur Leukocyte Esterase Small (1+) H (Negative) Urine RBC >20 H (0-2) /HPF Urine WBC 11-20 H (0-5) /HPF Ur Squamous Epith Cells 3-5 (0-2) /HPF Calcium Oxalate Crystal Present Urine Bacteria None Seen (None Seen) Hyaline Casts 0-2 (0-2) /LPF Discharge Plan Discharge Clinical Impression: Acute urinary retention Patient Disposition: Home, Self-Care Instructions: Dahl Catheter Placement and Care (ED) Additional Instructions: You were retaining a significant amount of urine when you came to the emergency department, therefore a Dahl catheter was reinserted. Please continue taking your medications as prescribed, and contact Dr. Phillips's office first thing Thursday morning to schedule a follow-up appointment. Return to the emergency department any new or worsening symptoms or concerns. Prescriptions: No Action sulfamethoxazole-trimethoprim [Bactrim] 400-80 mg tablet 1 tab PO DAILY Qty: 10 0RF tranexamic acid 650 mg tablet 650 mg PO BID 5 Days Qty: 10 0RF finasteride 5 mg tablet 5 mg PO DAILY 90 Days Qty: 90 1RF terazosin 10 mg capsule 10 mg PO BEDTIME 90 Days Qty: 90 1RF
[2022-04-26] MEDS: Lidocaine HCl 2 % Urojet 10 ML JEL.PF.APP TOPICAL (09:01)
[2022-04-26 09:31] LABS: MANUAL DIFF FLAG NO
[2022-04-26 09:35] LABS: Basophils Absolute Auto 0.1 X10*3/uL (0.0-0.2); Basophils Percent Auto 0.7 % (0-2); Eosinophils Absolute Auto 0.1 X10*3/uL (0.0-0.4); Eosinophils Percent Auto 0.7 % (0-4); Hematocrit 35.7 % (42.0-52.0); Hemoglobin 11.8 g/dl (14.0-18.0); Imm Gran Abs Auto 0.04 X10*3/uL (0.00-0.03); Imm Gran Pct Auto 0.5 % (0.0-0.4); Lymphocytes Absolute Auto 1.3 X10*3/uL (1.2-4.9); Lymphocytes Percent Auto 15.2 % (20-40); Mean Corpuscular HGB Conc 33.1 g/dl (31.0-36.0); Mean Corpuscular Hemoglobin 26.8 pg (27.0-33.0); Mean Corpuscular Volume 81.1 fL (80.0-98.0); Mean Platelet Volume 10.1 fL (9.4-12.4); Monocytes Absolute Auto 0.8 X10*3/uL (0.1-1.2); Neutrophils Absolute Auto 6.1 x10*3/uL (2.0-8.3); Neutrophils Percent Auto 72.9 % (45-73); Platelet Count 190 X10*3/uL (160-400); Red Cell Distribution Width 15.1 % (11.0-16.0); White Blood Count 8.4 X10*3/uL (4.8-10.8)
[2022-04-26 09:37] LABS: Appearance Urine Cloudy; Color Urine Dark Yellow; Glucose Urine UA Negative (Negative); Leukocyte Esterase Urine Small (1+) (Negative); Nitrite Urine Negative (Negative); PH 5.5 (5.0-9.0); Urine Blood Large (3+) (Negative); Urine Ketones Trace mg/dL (Negative); Urine Protein 100 (2+) mg/dL (Neg-Trace)
[2022-04-26 09:52] LABS: Alanine Aminotransferase 21 U/L (0-40); Albumin Level 3.9 g/dL (3.5-5.0); Alkaline Phosphatase 52 U/L (39-117); Anion Gap 15 (12-20); Aspartate Amino Transferase 17 U/L (5-37); Bilirubin Total 0.8 mg/dL (0.0-1.0); Blood Urea Nitrogen 29 mg/dL (9-16); Calcium 8.8 mg/dL (8.4-10.2); Carbon Dioxide 21 mmol/L (22-29); Chloride 108 mmol/L (96-108); Creatinine Clr Calc Pharmacy 78.7; Estimated Glomerular Filt Rate > 60; Glucose Random 101 mg/dL (60-115); Potassium 4.2 mmol/L (3.3-5.1); Sodium 140 mmol/L (135-145); Total Protein 6.1 g/dL (6.5-8.0)
[2022-04-26 10:06] LABS: Bacteria Urine None Seen (None Seen); Calcium Oxalate Crystals Urine Present; Hyaline Casts Urine 0-2 /LPF (0-2); RBC Urine >20 /HPF (0-2); UACC Culture Trigger YES
== END 2022-04-26 10:53 | disposition home or self-care (01) ==
PROVIDERS: Nurse Practitioner Family; Emergency Provider Emergency Medicine; PCP Internal Medicine
DX: R33.9 Retention of urine, unspecified (principal); D64.9 Anemia, unspecified
CPT/HCPCS: 36415; 51702; 80053; 81001; 85025; 87086; 99283; 99284

== ENCOUNTER 2022-04-28 18:13 | Emergency (ER) | payer OTHER, SELFPAY ==
[2022-04-28 18:14] VITALS: BP 115/76; PULSE 99; RESP 18; O2SAT 99; BMI 23.1
--- NOTE | 2022-04-28 19:11 | ED_ITS ---
HPI - Male Genitourinary General Chief complaint: Urogenital-Male Stated complaint: Leaking Catheter Time Seen by Provider: 04/28/22 18:20 Source: patient Mode of arrival: ambulatory Limitations: no limitations History of Present Illness HPI Narrative: 67-year-old male with a history of BPH who had a GreenLight procedure done by Dr. Phillips on 04/21 with subsequent urinary retention necessitating a visit to the ER on April 26 with Dahl catheter placement. Patient returns today as catheter is not draining for the last 3 hours and he is leaking around the catheter site. No additional complaints Related Data Previous Rx's Medication Instructions Recorded finasteride 5 mg tablet 5 mg PO DAILY 90 days #90 tabs 11/13/21 terazosin 10 mg capsule 10 mg PO BEDTIME 90 days #90 caps 11/13/21 sulfamethoxazole 400 1 tab PO DAILY #10 tabs 04/21/22 mg-trimethoprim 80 mg tablet (Bactrim) tranexamic acid 650 mg tablet 650 mg PO BID 5 days #10 tabs 04/21/22 Allergies Allergy/AdvReac Type Severity Reaction Status Date / Time No Known Allergies Allergy Verified 04/22/22 09:15 Review of Systems Review of Systems: Yes all other systems are reviewed and are negative Constitutional: Constitutional: Reports no additional constitutional complaints, Denies body ache(s), Denies chills, Denies fever(s), Denies headache(s) and Denies weakness Eyes: Eyes: Reports no additional eye complaints and Denies change in vision ENT: Reports system reviewed and no additional complaints, except as docu mented, Denies dizziness, Denies headache(s), Denies nasal congestion, Denies nasal discharge and Denies neck pain Cardiovascular: Cardiovascular: Reports no additional cardiovascular complaints, Denies chest pain, Denies leg edema and Denies dyspnea Respiratory: Respiratory: Reports no additional respiratory complaints, Denies cough and Denies dyspnea Gastrointestinal: Gastrointestinal: Reports no additional gastrointestinal complaints, Denies abdominal pain, Denies diarrhea, Denies nausea and Denies vomiting Genitourinary: Genitourinary: Denies urinary incontinence Musculoskeletal: Musculoskeletal: Reports no additional musculoskeletal complaints, Denies back pain, Denies arthralgias, Denies joint swelling, Denies neck pain, Denies numbness and Denies tingling Integumentary/Breasts: Skin/Breast: Reports system reviewed and no additional complaints, except as docu and Denies rash Neurologic: Reports system reviewed and no additional complaints, except as documented, Denies Abnormal speech present, Denies dizziness, Denies headach e(s), Denies numbness, Denies tingling and Denies weakness PMFSH Past Medical History Attestation statement: The following information was validated with the patient. Source: old records reviewed and nursing notes reviewed Medical History Detached retina Hernia Surgical History History of eye surgery History of umbilical hernia repair Hx of varicose vein ligation Family History Family History Sister Melanoma Social History Social History Alcohol intake: never Patient Tobacco Use Status: Former Tobacco user Quit Date: 20 years ago Tobacco use type: Cigarette Advance Directives: No Advance Directives Information Provided: No Physical Exam Vital Signs: Vital Signs: Last Vital Signs Pulse 99 04/28/22 18:14 Resp 18 04/28/22 18:14 BP 115/76 04/28/22 18:14 Pulse Ox 99 04/28/22 18:14 O2 Del Method 04/28/22 18:14 BMI result Body Mass Index 23.1 Const: General: cooperative, healthy appearing, comfortable and no acute distress Orientation/consciousness: patient oriented x3 Limitations: no limitations HEENT: Head: Yes normal to inspection Ears: hearing grossly normal bilaterally General nose exam: Normal external nose present Face and sinus: Yes normal facial exam Mouth: Normal oral and palatal mucosa present Throat: Yes posterior oropharynx normal Eyes: General: appearance normal, both eyes and all related structures Pupils: Equal, round and reactive pupils present Neck: Neck: Yes normal visual inspection Chest: Chest palpation & inspection: normal inspection of the chest Resp: Effort & Inspection: normal respiratory effort Auscultation: clear to auscultation bilaterally Cardio: Rate: regular rate Rhythm: regular rhythm Peripheral pulses: Peripheral pulses 2+ throughout GI: Inspection: Yes normal to inspection Palpation (GI): Soft to palpation and nontender Auscultation: normal bowel sounds Back/Spine/Pelvis: Thoracic/Lumbar Spine: thoracic and lumbar spine normal to inspection Skin: General skin exam: no rashes or lesions noted Neuro: General: patient oriented x3, no focal motor deficits and normal sensation to monofilament Cranial nerves: Yes Equal, round and reactive pupils present Cognition (Neuro): normal cognition Speech: No Abnormal speech present Gait exam (Neuro): Normal gait present Motor exam (neuro): 5/5 motor strength present throughout Extrem: General: Yes normal to inspection Course Course Course Narrative: After the balloon was inflated with additional saline the patient was monitored in the emergency room for 2 hours with no leaking noted around the catheter site and drainage noted in the catheter bag. Plan for discharge home with follow-up with Urology MDM - Male Genitourinary MDM Narrative Medical decision making narrative: 67-year-old male here with a Dahl catheter which was placed for urinary retention with reports of catheter not draining for the last 3 hours and leaking around the catheter site. Her previous nursing note 10 cc of saline was inflated with the balloon. The balloon does hold up to 30 cc. Nursing checked the volume in the balloon and there with 8 cc. An additional 20 cc were added. The Dahl catheter was flushed and there was some sediment noted within the catheter and during the flushing process. The patient was then attached to a drainage bag. Will monitor him for a brief time. Anticipate discharge home Medical Records Attestation: I reviewed the patient's medical records. Lab Data Attestation: I reviewed the patient's lab results. Discharge Plan Discharge Clinical Impression: Complication of Dahl catheter Patient Disposition: Home, Self-Care Instructions: Dahl Catheter Placement and Care (ED) Additional Instructions: Continue your home medications Follow-up with the urologist Return if the Dahl catheter is not draining urine, pain or fever Prescriptions: No Action sulfamethoxazole-trimethoprim [Bactrim] 400-80 mg tablet 1 tab PO DAILY Qty: 10 0RF tranexamic acid 650 mg tablet 650 mg PO BID 5 Days Qty: 10 0RF finasteride 5 mg tablet 5 mg PO DAILY 90 Days Qty: 90 1RF terazosin 10 mg capsule 10 mg PO BEDTIME 90 Days Qty: 90 1RF Referrals: Rod Phillips MD [Physician] - 1 week (as scheduled)
--- NOTE | 2022-04-28 19:40 | PC.NURSE ---
per request of provider, this nurse deflated gerardo balloon- there was 8cc in the balloon, it was reinflated with the 8cc and 20 additional ccs were added as the balloon allots 30ccs. provider requested gerardo cath bag for draining- bag was obtained, provider also requested kit for flushing.
== END 2022-04-28 20:44 | disposition home or self-care (01) ==
PROVIDERS: Emergency Provider Emergency Medicine; PCP Internal Medicine
DX: T83.038A Leakage of other urinary catheter, initial encounter (principal); Y73.8 Miscellaneous gastroenterology and urology devices associated with adverse incidents, not elsewhere classified; Y92.019 Unspecified place in single-family (private) house as the place of occurrence of the external cause
CPT/HCPCS: 99282; 99283

== ENCOUNTER → 2022-05-23 09:55 | Outpatient (BNVA) | payer OTHER, SELFPAY | PROVIDERS: PCP Internal Medicine; Visit Provider Urology | DX: N40.1 Benign prostatic hyperplasia with lower urinary tract symptoms (principal); N13.8 Other obstructive and reflux uropathy | CPT/HCPCS: 51700; 51798 ==

== ENCOUNTER → 2022-06-26 14:26 | Outpatient (BNVA) | payer OTHER, SELFPAY | PROVIDERS: PCP Internal Medicine; Visit Provider Urology | DX: R97.20 Elevated prostate specific antigen [PSA] (principal); N40.1 Benign prostatic hyperplasia with lower urinary tract symptoms; N13.8 Other obstructive and reflux uropathy; R31.0 Gross hematuria; N39.0 Urinary tract infection, site not specified | CPT/HCPCS: 51798 ==

== ENCOUNTER → 2022-07-25 10:23 | Outpatient (BNVA) | payer OTHER, SELFPAY | PROVIDERS: PCP Internal Medicine; Visit Provider Surgery Vascular Surgery | DX: I83.12 Varicose veins of left lower extremity with inflammation (principal); M79.605 Pain in left leg | CPT/HCPCS: 36482 ==

== ENCOUNTER 2022-07-28 10:27 | Outpatient (REF) | payer OTHER, SELFPAY ==
--- NOTE | ~2022-07-28 | US_ITS ---
EXAMINATION: TRIPLEX SCANNING OF LEFT LOWER EXTREMITY; SUPERFICIAL ULTRASOUND WITH DOPPLER OF LEFT LOWER EXTREMITY CLINICAL INFORMATION: Status post Venaseal of the left great saphenous vein COMPARISON: 02/27/2022. TECHNIQUE: Color flow triplex imaging and compression Doppler were performed as well as superficial ultrasound with Doppler. FINDINGS: LEFT LOWER EXTREMITY DEEP VENOUS SYSTEM: Respiratory variation, normal compression and augmented flow are noted throughout the lower extremity. The visualized common femoral vein, femoral vein, profunda femoral vein, popliteal vein and the calf veins show no evidence of deep venous thrombosis. There is no evidence of Wilkins's cyst. SUPERFICIAL VENOUS SYSTEM: The great saphenous vein is occluded from the access site to 0.9 cm before the saphenofemoral junction. There is no extension of thrombus into the deep system. The great saphenous vein in the mid calf is patent US/US venous duplex LE LT IMPRESSION: 1. No evidence of DVT. 2. Excellent appearance status post ablation of the left great saphenous vein.
== END 2022-07-28 10:28 | disposition home or self-care (01) ==
LOC: HO.US 10:27
PROVIDERS: Visit Provider Surgery Vascular Surgery
DX: M79.605 Pain in left leg (principal)
CPT/HCPCS: 93971

== ENCOUNTER 2022-09-19 11:57 | Outpatient (REF) | payer OTHER, SELFPAY ==
[2022-09-19 14:18] LABS: Prostate Specific Antigen 11.54 ng/mL (<0.05-4.0)
== END 2022-09-19 11:58 | disposition home or self-care (01) ==
LOC: HO.LAB 11:57
PROVIDERS: PCP Internal Medicine; Visit Provider Urology
DX: R97.20 Elevated prostate specific antigen [PSA] (principal); Z12.5 Encounter for screening for malignant neoplasm of prostate
CPT/HCPCS: 36415; 84153

== ENCOUNTER 2022-09-22 09:09 | Day surgery (SDC) | payer OTHER, SELFPAY ==
[2022-09-15 15:09] VITALS: BMI 23.1
--- NOTE | 2022-09-19 09:46 | HO.ANESPROP2 ---
Documented by User: Almaz Ojeda NP 09/19/22 09:51 HPI - Anesthesia Eval Consult details Narrative: 67yo M for Left Micro Phlebectomy PMFSH Active Problems Active Problems: All Active Problems (Updated 09/15/22 @ 15:08 by Macey Edwards RN) BPH w urinary obs/LUTS (Acute) UTI (urinary tract infection), bacterial (Acute) Gross hematuria (Acute) Varicose vein of leg (Acute) Elevated PSA (Acute) Varicose veins of left lower extremity with inflammation (Acute) Past Medical History Medical History BPH (benign prostatic hyperplasia) Detached retina Hernia Family History Family History Sister Melanoma Family history of problems with anesthesia: No Surgical History Surgical History History of eye surgery History of prostate surgery History of umbilical hernia repair Hx of varicose vein ligation History of Problems with Anesthesia: No Social History Social History Alcohol intake: never Patient Tobacco Use Status: Former Tobacco user Quit Date: 20 years ago Tobacco use type: Cigarette Are you DNR?: No Advance Directives: No Advance Directives Information Provided: Yes Nutrition Risks: No Nutritional Risk Meds Allergies Allergy/AdvReac Type Severity Reaction Status Date / Time No Known Allergies Allergy Verified 09/22/22 09:13 Exam Exam Date and Time: September 19, 2022 0946 Height,Weight and Vital Signs: Height 6 ft 1 in Weight 79.379 kg Pertinent Lab Results Pertinent Lab Results: Laboratory Tests 04/26/22 04/26/22 09:24 09:24 WBC 8.4 Hgb 11.8 L Hct 35.7 L Plt Count 190 Sodium 140 Potassium 4.2 Chloride 108 Carbon Dioxide 21 L BUN 29 H Creatinine 1.05 Narrative Narrative: EKG 03/2022 Vent. Rate : 051 BPM ? ? Atrial Rate : 051 BPM ?? P-R Int : 202 ms? QRS Dur : 114 ms ? ? QT Int : 540 ms ? ? ? P-R-T Axes : -23 054 034 degrees ?? QTc Int : 497 ms ? Sinus bradycardia Prolonged QT Abnormal ECG No previous ECGs available Assessment and Plan Assessment Anesthesia Assessment: Chart Reviewed Final Anesthetic Review Family History of Problems with Anesthesia: No History of Problems with Anesthesia: No Documented by User: Denisa Smith MD 09/22/22 11:22 PMFSH Past Medical History Medical History BPH (benign prostatic hyperplasia) Detached retina Hernia Family History Family History Sister Melanoma Surgical History Surgical History History of eye surgery History of prostate surgery History of umbilical hernia repair Hx of varicose vein ligation Social History Social History Alcohol intake: never Patient Tobacco Use Status: Former Tobacco user Quit Date: 20 years ago Tobacco use type: Cigarette Are you DNR?: No Advance Directives: No Advance Directives Information Provided: Yes Nutrition Risks: No Nutritional Risk Meds Allergies Allergy/AdvReac Type Severity Reaction Status Date / Time No Known Allergies Allergy Verified 09/22/22 09:13 Exam Airway Mallampati Class: II TM Dist: >3cm Neck ROM: Full Heart: rrr Lungs: cta Assessment and Plan Assessment Anesthesia Assessment: Anesthesia Plan Discussed Final Anesthetic Review NPO: Yes ASA Class: II Final Preanesthetic Review: No Changes in Pt Med Stat, Meds/Allgs Chart Reviewed, Consent Obtained/Reviewed and Anes Risks/Benef Reviewed Patient Risk: Low Procedure Risk: Low Anesthetic Plan Anesthetic Plan: GA and Agree w/ Assess. and Plan Disposition: Standard PACU
[2022-09-22] VITALS (7 sets, daily range): BP systolic 113–133; BP diastolic 69–79; PULSE 56–76; RESP 16–18; TEMP 36.2–37.2; O2SAT 94–98
[2022-09-22] MEDS: Lactated Ringers 1,000 ML 100 ML IVCONT (09:31)
--- NOTE | 2022-09-22 10:47 | MHC.SHP ---
Pre-Procedural Eval Section A Date of Service: 09/22/22 The patient is an INPATIENT: No Changes since office visit: Yes Patient answered all questions The History & Physical has been completed within 30 days and I have reviewed it.: No Section B Chief Complaint: Varicose veins of left lower extremity with inflam Allergies: Allergies Allergy/AdvReac Type Severity Reaction Status Date / Time No Known Allergies Allergy Verified 09/22/22 09:13 Review of Systems Sugical H&P ROS: Negative: Constitution, Cardiovascular and Respiratory and Yes, Specify: Integumentary (Left leg varicose veins) Exam Surgical H&P Exam: Normal: HEENT, Normal: Heart and Normal: Lungs and Significant Findings: Extremities (Large left leg varicosities in calf) Plan Diagnosis/Plan: Unchanged I have reviewed the history and physical and performed a pertinent physical examination on my patient. No changes have occurred unless specified. Time Spent With Patient Time: Total time managing care of this patient today ____ minutes.
--- NOTE | 2022-09-22 11:48 | P.OP_ITS ---
Operative Note Operative Note Date of Service: 09/22/22 Narrative: Operative note by [facility] Preoperative diagnosis: Left leg varicose veins with inflammation Postoperative diagnosis: Same Procedure:1. Left leg microphlebectomy(21) 2. Ligation venous cluster Surgeon:Frantz Garrett M.D. Motion Study Analyst: Olena Anesthesia: General Specimens: 1 Drains: None Estimated blood loss: 100 mL Indications: Very pleasant 67-year-old gentleman has undergone prior left leg venous ablation. He has residual varicosities. We did identify left leg varicose veins with large cluster. He now presents for microphlebectomy and removal of the cluster. The patient has signed the informed consent after reviewing risks, complications, benefits, and alternatives previously discussed with the patient. The patient was given the opportunity to ask any additional questions or voice any concerns. All questions were answered to the patient's satisfaction. Procedure in detail: Varicose veins were marked in the standing position on the left leg and the patient was then placed in the supine position. The left lower extremity was prepared and draped to allow knee flexion in the sterile field. The patient had large superficial varicose veins with significant symptoms of pain. It was therefore determined to perform microphlebectomies of the clusters of varicose veins. The patient had bulging varicose veins which were previously marked in the standing position. A small stab incision was made longitudinally directly overlying the varicose vein in the calf and the varicose vein was grasped with a hemostat aided by a vein hook. It was then dissected as far proximally and distally as possible and avulsed. A total of 21 stab incisions were made and the procedure of stab phlebectomies was repeated 21 times. In the left medial calf there was a large cluster varicosities. The base was identified and ligated with a 3-0 poly Sorb suture. Residual varicosities were removed from this cluster. Hemostasis was checked and stab incision sites were closed with steri-strips and sterile dressing was given with gauze and krilex wrap followed by an marv bandage. There were no complications and blood loss was minimal. Post-Op instructions were given and a follow-up appointment was recommended. This note is constructed using voice recognition software. While every effort has been made to ensure accuracy, emergency veterinary technician errors may have been included. Thank you for allowing me to participate in the care of your patient. Yours sincerely, Frantz Garrett MD, FACS, R.P.V.I.
== END 2022-09-22 13:58 | disposition home or self-care (01) ==
PROVIDERS: PCP Internal Medicine; Visit Provider Surgery Vascular Surgery
PROC: (CPT 37766; principal; 2022-09-22 10:40)
DX: I83.12 Varicose veins of left lower extremity with inflammation (principal)
CPT/HCPCS: 37766; 37785; 88304; J0690; J1100; J1170; J2250; J2370; J2405; J2795; J3010

== ENCOUNTER → 2022-09-30 13:11 | Outpatient (BNVA) | payer OTHER, SELFPAY | PROVIDERS: PCP Internal Medicine; Visit Provider Urology | DX: Z13.89 Encounter for screening for other disorder (principal) ==

== ENCOUNTER → 2022-10-07 15:49 | Outpatient (BNVA) | payer OTHER, SELFPAY | PROVIDERS: PCP Internal Medicine; Visit Provider Surgery Vascular Surgery | DX: Z13.89 Encounter for screening for other disorder (principal) ==

== ENCOUNTER 2022-10-29 08:36 | Outpatient (REF) | payer OTHER, SELFPAY ==
--- NOTE | ~2022-10-29 | US_ITS ---
EXAMINATION: US LOWER EXTREMITY (REFLUX EXAM), RIGHT CLINICAL INDICATION: Varicose veins of the right lower extremity COMPARISON: Left lower extremity venous reflux exam on 02/27/2022 TECHNIQUE: Color flow triplex imaging and compression Doppler was performed to evaluate both the deep and the superficial systems of the right lower extremity. To evaluate the superficial system, the examination was performed in the upright position. Color-flow Doppler ultrasound and compression ultrasound were utilized. In addition, maneuvers were utilized to demonstrate reflux. FINDINGS: 1. DEEP VENOUS DOPPLER ULTRASOUND: Common Femoral Vein: Compressible, normal respiratory variation and augmented flow. Femoral Vein: Compressible, normal color flow and augmentation. Popliteal Vein: Compressible, normal augmentation. Deep Reflux: Venous reflux demonstrated in the mid femoral vein at 588 ms There is no evidence of a Wilkins's cyst. 2. SUPERFICIAL VENOUS DOPPLER ULTRASOUND: GREAT SAPHENOUS VEIN: Saphenofemoral Junction: 0.8 cm; Reflux: 0 ms Proximal Thigh: 0.3 cm; Reflux: 0 ms Mid Thigh: 0.3 cm; Reflux: 0 ms Above Knee: 0.5 cm; Reflux: 3004 ms At Knee: 0.4 cm; Reflux: 3072 ms Below Knee: 0.5 cm; Reflux: 2940 ms Mid Calf: 0.2 cm; Reflux: 1192 ms Ankle: 0.2 cm; Reflux: 2860 ms DUPLICATED MEDIAL GREAT SAPHENOUS VEIN: Diameter: None Imaged Reflux: NA DUPLICATED LATERAL GREAT SAPHENOUS VEIN: Diameter: 0.6 cm Reflux: NA Diameter: 0.4 cm Reflux: 592 ms Diameter: 0.3 cm in the distal thigh Reflux: 2852 ms SMALL SAPHENOUS VEIN: Proximal: 0.2 cm; Reflux: 0 ms Distal: 0.2 cm; Reflux: 0 ms VEIN OF GIACOMINI: None Imaged. PERFORATORS: Location: Mid thigh Size: 0.1 cm Reflux: NA VARICOSITIES: Location: Proximal calf Size: 0.3 cm Reflux: NA US/US venous duplex LE RT IMPRESSION: 1. Reflux in the distal right great saphenous vein. 2. Reflux in the right mid femoral vein.
== END 2022-10-29 08:37 | disposition home or self-care (01) ==
LOC: HO.US 08:36
PROVIDERS: PCP Internal Medicine; Visit Provider Surgery Vascular Surgery
DX: I83.11 Varicose veins of right lower extremity with inflammation (principal)
CPT/HCPCS: 93971

== ENCOUNTER 2022-11-26 10:31 | Outpatient (REF) | payer OTHER, SELFPAY ==
[2022-11-26 11:00] LABS: Appearance Urine Turbid; Color Urine Yellow; Glucose Urine UA Negative (Negative); Leukocyte Esterase Urine Large (3+) (Negative); Nitrite Urine Positive (Negative); Specific Gravity - Urine 1.025 (1.005-1.025); UMIC TRIGGER UA YES; Urine Blood Moderate (2+) (Negative); Urine Ketones Negative (Negative); Urine Protein 100 (2+) mg/dL (Neg-Trace)
[2022-11-26 11:21] LABS: Bacteria Urine 4+ (None Seen); Hyaline Casts Urine 0-2 /LPF (0-2); RBC Urine >20 /HPF (0-2); Squamous Epithelial Cell Urine 0-2 /HPF (0-2); WBC Urine >50 /HPF (0-5)
== END 2022-11-26 10:32 | disposition home or self-care (01) ==
LOC: HO.LNP 10:31
PROVIDERS: Visit Provider Urology
DX: A49.9 Bacterial infection, unspecified (principal); N39.0 Urinary tract infection, site not specified
CPT/HCPCS: 81001; 87086

== ENCOUNTER 2022-11-29 12:59 | Outpatient (REF) | payer OTHER, SELFPAY ==
--- NOTE | ~2022-11-29 | XR_ITS ---
EXAMINATION: XR chest 2V CLINICAL INFORMATION: Cough COMPARISON: No prior chest x-ray available in our system for comparison at the time of this dictation. TECHNIQUE: XR chest 2V Lungs and Belen: Linear opacity right parahilar region might be a summation of vessels and rib shadows versus atelectasis among others. Lungs otherwise are clear. Pleura: Normal. Costophrenic angles are sharp. No pneumothorax. Heart: The heart is normal in size. Mediastinum: The mediastinum is within normal limits.. Bones: Skeletal structures included are normal for patient's age. XR/XR chest 2V IMPRESSION: * Linear opacity right parahilar region might be a summation of vessels and rib shadows versus atelectasis among others. Attention to follow-up chest x-ray ordered low-dose chest CT in one month recommended. * No radiographic evidence of pneumonia.
[2022-11-29 13:54] LABS: Appearance Urine Turbid; Color Urine Dark Yellow; Glucose Urine UA Negative (Negative); Leukocyte Esterase Urine Large (3+) (Negative); Nitrite Urine Positive (Negative); UMIC TRIGGER UACC YES; Urine Blood Large (3+) (Negative); Urine Ketones Negative (Negative); Urine Protein 100 (2+) mg/dL (Neg-Trace)
[2022-11-29 14:04] LABS: Bacteria Urine 1+ (None Seen); Granular Casts Urine Present; Squamous Epithelial Cell Urine 0-2 /HPF (0-2); UACC Culture Trigger YES; WBC Urine 21-50 /HPF (0-5)
[2022-11-29 14:53] LABS: Influenza A PCR NEGATIVE (Negative); Influenza B PCR NEGATIVE (Negative); Resp Syncy Virus RNA Qual PCR NEGATIVE (Negative); SARS COV2 PCR INHOUSE NEGATIVE (Negative)
== END 2022-11-29 13:00 | disposition home or self-care (01) ==
LOC: HO.HMGCX 12:59
PROVIDERS: PCP Nurse Practitioner Family; Visit Provider Physician Assistant Medical
DX: Z20.822 Contact with and (suspected) exposure to COVID-19 (principal); R05.9 Cough, unspecified; R82.90 Unspecified abnormal findings in urine
CPT/HCPCS: 0241U; 71046; 81001; 87086

== ENCOUNTER 2022-11-29 16:52 | Inpatient (IN) | payer OTHER, SELFPAY ==
[2022-11-29] VITALS (8 sets, daily range): BP systolic 101–123; BP diastolic 66–74; PULSE 19–98; RESP 18–22; TEMP 36.1–37.1; O2SAT 96–99; BMI 24.3
--- NOTE | ~2022-11-29 | FL_ITS ---
EXAMINATION: FL FLUOROSCOPY WITH IMAGES CLINICAL INFORMATION: Kidney stone. COMPARISON: None available. TECHNIQUE: Fluoroscopy Supervised By: Dr. Rod Phillips. Fluoroscopy Time: 236 seconds. Cumulative Dose: 58.72 mGy-cm Images: 1. FINDINGS: Image demonstrates the proximal end of a right internal ureteral stent. There may be stones in the lower pole of the right kidney. FL/FL guidance in OR IMPRESSION: Fluoroscopy guidance for urologic procedure.
--- NOTE | ~2022-11-29 | XR_ITS ---
EXAMINATION: XR CHEST CLINICAL INFORMATION: Shortness of breath. Weakness. COMPARISON: Chest x-ray of 11/29/2022 obtained at 1:14 PM TECHNIQUE: 2 views of the chest were obtained. FINDINGS: Cardiomediastinal silhouette is normal. Mild pectus excavatum is noted. The lungs are symmetrically adequately expanded. There is no evidence of focal consolidation, changes of congestion or pleural effusions. No pneumothorax. Regional skeleton is intact. XR/XR chest 2V IMPRESSION: No convincing radiographic evidence of pneumonia or pulmonary edema. No significant interval change is noted compared to chest x-ray obtained earlier on the same day.
--- NOTE | ~2022-11-29 | CT_ITS ---
EXAMINATION: CT ABDOMEN AND PELVIS WITHOUT CONTRAST CLINICAL INFORMATION: Right abdominal pain. COMPARISON: CT scan of the abdomen and pelvis dated 10/20/2021. TECHNIQUE: Multidetector volumetric imaging was performed from the superior aspect of the liver through the pubic symphysis. Sagittal and coronal reformatted images were obtained on the technologist's workstation. This CT examination was performed using dose optimization techniques as appropriate, variously including the following: *Automated exposure control *Adjustment of mA and/or kV according to patient size (this includes techniques or standardized protocols for targeted exams where dose is matched to indication/reason for exam; i.e. extremities or head) *Use of iterative reconstruction technique DLP: 509 mGy-cm FINDINGS: LUNG BASES: There is a masslike opacity seen in the posterior right lower lobe in region of previously seen chronic linear atelectasis, incompletely included in the [id number] of this exam. There is a convergence of bronchovascular markings on this region with a curvilinear pattern, suggesting rounded atelectasis. LIVER, GALLBLADDER, AND BILIARY TREE: The liver is normal in size, shape, and attenuation. No focal hepatic lesion or biliary ductal dilatation is present. There is a single dependent calcified gallstone within the gallbladder neck. The gallbladder is otherwise unremarkable with no evidence of gallbladder wall thickening or obvious pericholecystic inflammatory changes. PANCREAS: Unremarkable. SPLEEN: 1.2 cm splenic cyst again noted, unchanged. ADRENAL GLANDS: Right adrenal gland normal. Left adrenal gland nodular and enlarged and poorly from adjacent small perisplenic and perigastric varices, but appearing similar to previous exam. KIDNEYS AND URETERS: There is severe right renal hydronephrosis with a large extrarenal pelvis and moderate right proximal and mid hydroureter. There is a right ureteral stent seen extending from the bladder up to the renal pelvis. Heavy calcification encasing the proximal pigtail of the ureteral stent and extending along the proximal stent as well as the distal pigtail of the stent in the bladder are noted. Several nonobstructing calculi are seen throughout the right kidney with largest calcification in the lower pole having a staghorn appearance and measuring 1.8 x 1.2 cm (series 3, image 55) and located at a distance of 10 cm from the right lateral mid axillary line with mean attenuation values of 409 Hounsfield units. Nonobstructing punctate 0.2 cm calcification in the mid left kidney is noted. BLADDER/PELVIC VISCERA: Multiple large calcifications are seen at the bladder base, encasing the distal right ureteral stent and pigtail with the calcification measuring 6.2 cm transversely and 2.7 cm anteroposteriorly with mean attenuation values of 835 Hounsfield units. Additional smaller 1.5 x 1 cm calcification is seen in the posterior lateral right bladder. Multiple adjacent phleboliths are noted in the pelvis. Mild diffuse bladder wall thickening is noted, likely due to chronic outlet obstruction and bladder wall hypertrophy. Marked enlargement and heterogeneity of the prostate gland is seen with impression upon the bladder base by an enlarged median lobe of the prostate gland. GASTROINTESTINAL TRACT: The small and large bowel are decompressed. The appendix is not seen. ABDOMINAL WALL: There is a small fat-containing direct right inguinal hernia. LYMPH NODES: Normal. VASCULAR: Mild atherosclerotic calcification of the abdominal aorta seen.. OSSEOUS STRUCTURES: There is mild degenerative disc disease at L3-L4, L4-L5 and L5-S1 with associated mild to moderate facet arthropathy. Minimal vertebral spurring in the lower thoracic spine seen. Moderate degenerative changes in both hip joints noted. Large ununited avulsion fracture fragment at the superior lateral margin of the right acetabulum and small fragment at the superior lateral margin of the left acetabulum are seen. CT/CT abdomen pelvis wo IV con IMPRESSION: 1. Severe right renal hydronephrosis and moderate right hydroureter are seen with a right ureteral stent in place. Heavy calcification is seen encasing the proximal and distal ends of the ureteral stent. 2. Bilateral nonobstructing renal calculi. 3. Enlarged heterogeneous prostate gland. 4. Cholelithiasis with no evidence of acute cholecystitis or biliary obstruction. 5. Small fat-containing direct right inguinal hernia. 6. Masslike opacity in the posterior right lower lobe, in region of previously seen chronic linear atelectasis, suggesting rounded atelectasis however, the finding is incompletely included in the [id number] of this exam and nonemergent CT scan of the chest is recommended for further evaluation. Fleischner guidelines were followed.
--- NOTE | ~2022-11-29 | CT_ITS ---
EXAMINATION: CT CHEST WITHOUT CONTRAST CLINICAL INFORMATION: Shortness of breath. COMPARISON: CXR and abdomen CT from 11/29/2022. TECHNIQUE: Multidetector volumetric CT imaging of the chest was done. Axial MIP volume rendering provided. Sagittal and coronal reformatted images were obtained. This CT examination was performed using dose optimization techniques as appropriate, variously including the following: *Automated exposure control *Adjustment of mA and/or kV according to patient size (this includes techniques or standardized protocols for targeted exams where dose is matched to indication/reason for exam; i.e. extremities or head) *Use of iterative reconstruction technique DLP: 304 mGy-cm FINDINGS: LUNGS AND PLEURA: Trachea and central airways are widely patent and normal in caliber. 0.6 x 0.9 cm groundglass nodule of the right upper lobe (157, series 5). Mild centrilobular and paraseptal emphysema of upper lobes. Interval increased opacity in the posterior/dependent aspect of the right lower lobe compared to 11/29/2022. Trace right pleural effusion is present. No pneumothorax. Linear opacity of mild atelectasis of posterior left lower lobe. CARDIOVASCULAR: The heart size is normal. No pericardial effusion. Pulmonary arteries and thoracic aorta are normal in size. CORONARY ARTERY CALCIFICATION: None detected. MEDIASTINUM AND LOWER NECK: No mediastinal mass. The esophagus and thyroid gland are unremarkable. LYMPHATICS: No pathologic sized lymph nodes. UPPER ABDOMEN: 1.5 cm simple-appearing cyst of the spleen. Bilateral perinephric edema. There appears to be a calcified stone of the gallbladder neck. SKELETAL AND CHEST WALL: No chest wall mass or hematoma. Degenerative disc disease at C6-C7. Mild spondylosis of thoracic spine. No acute or suspicious osseous abnormality. CT/CT chest wo IV con IMPRESSION: * Mild emphysema of upper lobes. * Mild atelectasis of posterior lower lobes. The right lower lobe atelectasis has worsened compared to 11/29/2022. * Interval development of trace right pleural effusion. * Groundglass nodule of the right upper lobe is 0.6 x 0.9 cm. Based on Fleischner Society guidelines, recommend chest CT follow-up in the next 6-12 months. If the abnormality is persistent and stable, then chest CT follow-up may be required every 2 years until at least 5 years of stability is documented.
--- NOTE | 2022-11-29 17:22 | ED_ITS ---
HPI - General Adult General Chief complaint: Urogenital-Male <SREE Linton - Last Filed: 11/29/22 17:24> Stated complaint: Sent by for Antibiotics <SREE Linton - Last Filed: 11/29/22 17:24> Time Seen by Provider: 11/29/22 17:35 <SREE Linton - Last Filed: 11/29/22 17:24> Source: patient, family (), RN notes reviewed and old records reviewed <Moses Santiago - Last Filed: 11/29/22 22:43> Mode of arrival: ambulatory <Moses Santiago - Last Filed: 11/29/22 22:43> History of Present Illness HPI narrative: 67-year-old male past medical history significant for BPH, history of UTI following Dr. Rod Phillips who presents for evaluation of nausea vomiting, weakness. Patient reports that he started to feel sick Thursday night with nausea, vomiting. He noticed 1 episode of blood in his urine He has had on and off fevers and chills since then. His T-max was 101? F He spoke to his urologist, Dr. Phillips as he also had some burning with urination and it was felt that he had a UTI. The patient started levofloxacin yesterday However he has been feeling progressively worse so he presents to the ER for evaluation <Moses Santiago - Last Filed: 11/29/22 22:43> Related Data Home medications: Home Medications Medication Instructions Recorded Confirmed ascorbic acid (vitamin C) 500 mg 500 mg PO DAILY 11/29/22 11/29/22 tablet (Vitamin C) cholecalciferol (vitamin D3) 50 50 mcg PO DAILY 11/29/22 11/29/22 mcg (2,000 unit) tablet (Vitamin D3) multivitamin 1 tab PO DAILY 11/29/22 11/29/22 zinc acetate 50 mg (zinc) capsule 50 mg PO DAILY 11/29/22 11/29/22 Previous Rx's Medication Instructions Recorded finasteride 5 mg tablet 5 mg PO DAILY 90 days #90 tabs 09/24/22 levofloxacin 500 mg tablet 500 mg PO DAILY UTI 5 days #5 tabs 11/27/22 <SREE Linton - Last Filed: 11/29/22 17:24> Allergies/adverse reactions: Allergies Allergy/AdvReac Type Severity Reaction Status Date / Time No Known Allergies Allergy Verified 11/29/22 17:22 <SREE Linton - Last Filed: 11/29/22 17:24> Review of Systems Constitutional: Constitutional: Reports as per HPI, Reports chills, Reports fever(s), Denies headache(s) and Reports weakness <Moses Santiago - Last Tino ed: 11/29/22 22:43> ENT: Denies headache(s) <Moses Santiago - Last Filed: 11/29/22 22:43> Cardiovascular: Cardiovascular: Denies chest pain and Denies dyspnea <Owen Santiago - Last Filed: 11/29/22 22:43> Respiratory: Respiratory: Denies cough and Denies dyspnea <Moses Santiago - Last Filed: 11/29/22 22:43> Gastrointestinal: Gastrointestinal: Reports abdominal pain, Denies constipation, Reports nausea and Reports vomiting <Moses Santiago - Last Filed: 11/29/22 22:43> Genitourinary: Genitourinary: Denies difficulty urinating and Reports dysuria <Moses Santiago - Last Filed: 11/29/22 22:43> Neurologic: Denies headache(s), Denies focal weakness and Reports weakness <Moses Santiago - Last Filed: 11/29/22 22:43> [facility] Past Medical History Medical History: Medical History BPH (benign prostatic hyperplasia) Detached retina Hernia <SREE Linton - Last Filed: 11/29/22 17:24> Surgical History: Surgical History History of eye surgery History of prostate surgery History of umbilical hernia repair Hx of varicose vein ligation <SREE Linton - Last Filed: 11/29/22 17:24> Family History Family History: Family History Sister Melanoma <SREE Linton - Last Filed: 11/29/22 17:24> Social History Social History: Social History Alcohol intake: never Patient Tobacco Use Status: Former Tobacco user Quit Date: 20 years ago Tobacco use type: Cigarette Advance Directives: No Advance Directives Information Provided: No <SREE Linton - Last Filed: 11/29/22 17:24> Physical Exam ED Vital Signs: Vital Signs - 24 hr 11/29/22 17:22 11/29/22 18:11 11/29/22 18:38 Temperature 98.3 F 97.2 F Pulse Rate 98 89 82 Respiratory Rate 22 H 20 20 Blood Pressure 101/67 110/66 114/73 Pulse Oximetry 96 99 96 Oxygen Delivery Method Room Air Room Air Room Air 11/29/22 19:13 11/29/22 19:28 11/29/22 20:31 Temperature 98.8 F 98 F 98.1 F Pulse Rate 19 L 74 69 Respiratory Rate 21 H 18 21 H Blood Pressure 119/69 121/67 119/74 Pulse Oximetry 98 98 98 Oxygen Delivery Method Room Air Room Air Room Air 11/29/22 21:28 Temperature 97 F Pulse Rate 76 Respiratory Rate 18 Blood Pressure 123/71 Pulse Oximetry 98 Oxygen Delivery Method Room Air BMI result Body Mass Index 24.3 <SREE Linton - Last Filed: 11/29/22 17:24> Vital Signs - 24 hr 11/29/22 17:22 11/29/22 18:11 11/29/22 18:38 Temperature 98.3 F 97.2 F Pulse Rate 98 89 82 Respiratory Rate 22 H 20 20 Blood Pressure 101/67 110/66 114/73 Pulse Oximetry 96 99 96 Oxygen Delivery Method Room Air Room Air Room Air 11/29/22 19:13 11/29/22 19:28 11/29/22 20:31 Temperature 98.8 F 98 F 98.1 F Pulse Rate 19 L 74 69 Respiratory Rate 21 H 18 21 H Blood Pressure 119/69 121/67 119/74 Pulse Oximetry 98 98 98 Oxygen Delivery Method Room Air Room Air Room Air 11/29/22 21:28 Temperature 97 F Pulse Rate 76 Respiratory Rate 18 Blood Pressure 123/71 Pulse Oximetry 98 Oxygen Delivery Method Room Air BMI result Body Mass Index 24.3 <Moses Santiago - Last Filed: 11/29/22 22:43> Const General: healthy appearing, comfortable, no acute distress, alert and awake <Moses Last Filed: 11/29/22 22:43> Nutritional Appearance: well nourished < Last Filed: 11/29/22 22:43> Orientation/consciousness: patient oriented x3 < Last Filed: 11/29/22 22:43> HENMT Head: Yes normocephalic and Yes atraumatic < Last Filed: 11/29/22 22:43> Throat: Yes posterior oropharynx normal < Last Filed: 11/29/22 22:43> Eyes Eyelids: Yes eyelids normal < Last Filed: 11/29/22 22:43> Conjunctivae: conjunctivae normal < Last Filed: 11/29/22 22:43> Sclerae: sclerae normal < Last Filed: 11/29/22 22:43> Corneas: corneas normal < Last Filed: 11/29/22 22:43> Pupils: Equal, round and reactive pupils present < Last Filed: 11/29/22 22:43> EOM: EOMs intact bilaterally < Last Filed: 11/29/22 22:43> Neck Neck: Yes full ROM < Last Filed: 11/29/22 22:43> Resp Effort & Inspection: normal respiratory effort, able to speak in complete sentences, no audible wheezes and not labored < Last Filed: 11/29/22 22:43> Auscultation: clear to auscultation bilaterally < Last Filed: 11/29/22 22:43> Cardio Rate: regular rate < Last Filed: 11/29/22 22:43> Rhythm: regular rhythm < Last Filed: 11/29/22 22:43> GI Inspection: No distended < Last Filed: 11/29/22 22:43> Palpation (GI): Soft to palpation, not firm, Tenderness to palpation present (GI) in the RUQ; Brizuela's sign negative, no guarding and not rigid <Moses Suárez Last Filed: 11/29/22 22:43> Auscultation: normoactive bowel sounds <Moseskristen Suárez Last Filed: 11/29/22 22:43> Skin General skin exam: no rashes or lesions noted and elasticity normal < Last Filed: 11/29/22 22:43> Neuro General: patient oriented x3 < Last Filed: 11/29/22 22:43> Cranial nerves: Yes CN's II-XII intact bilaterally, Yes Equal, round and reactive pupils present and Yes Bilaterally intact EOM present <Moses O Last Filed: 11/29/22 22:43> Cognition (Neuro): normal cognition <Moses O Last Filed: 11/29/22 22:43> Extrem Other: Moving all extremities well without any obvious deformities <Moseskristen Suárez Last Filed: 11/29/22 22:43> Course Course Course Narrative: RME performed by Aicha Briggs PA-C. Patient is a 67 year old assigned male at presenting to the emergency department with a UTI, rapid heart rate, and feeling SOB. Patient states that he was evaluated by Dr. Phillips, the urologist, and given ABX for his UA however, he is now having shortness of breath. Labs, imaging, and swab ordered. Patient placed back in the waiting room pending room availability and results. <SREE Linton - Last Filed: 11/29/22 17:24> Reevaluation(s) Reevaluation #1: Concern for sepsis, the patient was given broad-spectrum antibiotics and IV fluids. No evidence of severe sepsis <Moses BundySowmyay Last Filed: 11/29/22 22:43> Time: 18:08 <Moses Suárez Last Filed: 11/29/22 22:43> Reevaluation #2: CT scan shows significant right-sided hydronephrosis with a 6.4 cm kidney stone. I discussed with Dr. Phillips, urology who like the patient admitted to the medical service and he will consult tomorrow. He agrees with current management. <Moses Santiago - Last Filed: 11/29/22 22:43> Time: 22:39 <Moses Santiago - Last Filed: 11/29/22 22:43> Medications Administered Discontinued Medications Generic Name Dose Route Start Last Admin Trade Name Freq PRN Reason Stop Dose Admin Sodium Chloride 1,000 mls @ 999 mls/hr 11/29/22 18:30 11/29/22 19:27 Ns IV 11/29/22 19:30 Infused .Q1H1M PERNELL Infusion Ceftriaxone Sodium 1 gm/ 50 mls @ 100 mls/hr 11/29/22 18:27 11/29/22 19:50 Sodium Chloride IV 11/29/22 18:56 Infused ONCE ONE Infusion Sodium Chloride 1,000 mls @ 999 mls/hr 11/29/22 19:15 11/29/22 20:32 Ns IV 11/29/22 20:15 Infused .Q1H1M PERNELL Infusion <SREE Linton - Last Filed: 11/29/22 17:24> Medications Administered Discontinued Medications Generic Name Dose Route Start Last Admin Trade Name Freq PRN Reason Stop Dose Admin Sodium Chloride 1,000 mls @ 999 mls/hr 11/29/22 18:30 11/29/22 19:27 Ns IV 11/29/22 19:30 Infused .Q1H1M PERNELL Infusion Ceftriaxone Sodium 1 gm/ 50 mls @ 100 mls/hr 11/29/22 18:27 11/29/22 19:50 Sodium Chloride IV 11/29/22 18:56 Infused ONCE ONE Infusion Sodium Chloride 1,000 mls @ 999 mls/hr 11/29/22 19:15 11/29/22 20:32 Ns IV 11/29/22 20:15 Infused .Q1H1M PERNELL Infusion <Moses Santiago - Last Filed: 11/29/22 22:43> Medical Decision Making Medical Decision Making MDM Narrative: The patient reports burning with urination, urinary urgency. He is afebrile on [place] [id number] with a lactate of 3.0. The most likely source at this time is the urine, will treat with ceftriaxone. However given that he also has right upper quadrant pain and tenderness as well as vomiting, there is some concern for biliary disease. Will start with a CT scan of the abdomen pelvis to evaluate for obstructive uropathy, pyelonephritis or there disease. Will consider following up with dedicated gallbladder ultrasound if that does appear to be the issue. Patient has been given IV fluids as well. <Moses Santiago - Last Filed: 11/29/22 22:43> Differential Diagnosis UTI Pyelonephritis Obstructive uropathy Cholelithiasis Acute cholecystitis Acute appendicitis <Moses Santiago - Last Filed: 11/29/22 22:43> Lab Data Result Diagrams: 11/29/22 17:40 11/29/22 17:40 <SREE Linton - Last Filed: 11/29/22 17:24> Labs: Lab Results 11/29/22 11/29/22 11/29/22 Range/Units 17:40 17:40 17:40 WBC 14.8 H (4.8-10.8) X10*3/uL RBC 4.89 (4.60-5.80) X10*6/uL Hgb 13.1 L (14.0-18.0) g/dl Hct 38.7 L (42.0-52.0) % MCV 79.1 L (80.0-98.0) fL MCH 26.8 L (27.0-33.0) pg MCHC 33.9 (31.0-36.0) g/dl RDW 14.9 (11.0-16.0) % Plt Count 163 (160-400) X10*3/uL MPV 10.3 (9.4-12.4) fL Immature Gran % (Auto) 0.7 H (0.0-0.4) % Neut % (Auto) 89.1 H (45-73) % Lymph % (Auto) 4.3 L (20-40) % [place] % (Auto) 5.7 (2-11) % Eos % (Auto) 0.0 (0-4) % Baso % (Auto) 0.2 (0-2) % Lymph # (Auto) 0.6 L (1.2-4.9) X10*3/uL [place] # (Auto) 0.9 (0.1-1.2) X10*3/uL Eos # (Auto) 0.0 (0.0-0.4) X10*3/uL Baso # (Auto) 0.0 (0.0-0.2) X10*3/uL Abs Immat Gran (auto) 0.10 H (0.00-0.03) X10*3/uL Absolute Neuts (auto) 13.2 H (2.0-8.3) x10*3/uL Absolute Nucleated RBC 0.000 (0.0-0.012) X10*3/uL Nucleated RBC % (auto) 0.0 (0.0-0.2) /100WBC Sodium 136 (135-145) mmol/L Potassium 4.6 (3.3-5.1) mmol/L Chloride 102 (96-108) mmol/L Carbon Dioxide 23 (22-29) mmol/L Anion Gap 16 (12-20) BUN 52 H (9-16) mg/dL Creatinine 1.95 H (0.5-1.4) mg/dL Estim Creat Clear Calc 42.6 Estimated GFR 35 Random Glucose 135 H (60-115) mg/dL Lactic Acid 3.0 H* (0.5-2.0) mmol/L Lactic Acid F/U @ 2Hr (0.5-2.0) mmol/L Calcium 8.2 L D (8.4-10.2) mg/dL Magnesium 2.2 (1.6-2.6) mg/dL Total Bilirubin 1.0 (0.0-1.0) mg/dL AST 41 H (5-37) U/L ALT 59 H (0-40) U/L Alkaline Phosphatase 128 H (39-117) U/L Troponin I High Sens (<3.5-35.0) ng/L Total Protein 5.8 L (6.5-8.0) g/dL Albumin 3.2 L (3.5-5.0) g/dL 11/29/22 11/29/22 11/29/22 Range/Units 17:40 19:33 20:23 WBC (4.8-10.8) X10*3/uL RBC (4.60-5.80) X10*6/uL Hgb (14.0-18.0) g/dl Hct (42.0-52.0) % MCV (80.0-98.0) fL MCH (27.0-33.0) pg MCHC (31.0-36.0) g/dl RDW (11.0-16.0) % Plt Count (160-400) X10*3/uL MPV (9.4-12.4) fL Immature Gran % (Auto) (0.0-0.4) % Neut % (Auto) (45-73) % Lymph % (Auto) (20-40) % [place] % (Auto) (2-11) % Eos % (Auto) (0-4) % Baso % (Auto) (0-2) % Lymph # (Auto) (1.2-4.9) X10*3/uL [place] # (Auto) (0.1-1.2) X10*3/uL Eos # (Auto) (0.0-0.4) X10*3/uL Baso # (Auto) (0.0-0.2) X10*3/uL Abs Immat Gran (auto) (0.00-0.03) X10*3/uL Absolute Neuts (auto) (2.0-8.3) x10*3/uL Absolute Nucleated RBC (0.0-0.012) X10*3/uL Nucleated RBC % (auto) (0.0-0.2) /100WBC Sodium (135-145) mmol/L Potassium (3.3-5.1) mmol/L Chloride (96-108) mmol/L Carbon Dioxide (22-29) mmol/L Anion Gap (12-20) BUN (9-16) mg/dL Creatinine (0.5-1.4) mg/dL Estim Creat Clear Calc Estimated GFR Random Glucose (60-115) mg/dL Lactic Acid 2.0 (0.5-2.0) mmol/L Lactic Acid F/U @ 2Hr 1.2 (0.5-2.0) mmol/L Calcium (8.4-10.2) mg/dL Magnesium (1.6-2.6) mg/dL Total Bilirubin (0.0-1.0) mg/dL AST (5-37) U/L ALT (0-40) U/L Alkaline Phosphatase (39-117) U/L Troponin I High Sens 11.0 (<3.5-35.0) ng/L Total Protein (6.5-8.0) g/dL Albumin (3.5-5.0) g/dL <SREE Linton - Last Filed: 11/29/22 17:24> Lab Results 11/29/22 11/29/22 11/29/22 Range/Units 17:40 17:40 17:40 WBC 14.8 H (4.8-10.8) X10*3/uL RBC 4.89 (4.60-5.80) X10*6/uL Hgb 13.1 L (14.0-18.0) g/dl Hct 38.7 L (42.0-52.0) % MCV 79.1 L (80.0-98.0) fL MCH 26.8 L (27.0-33.0) pg MCHC 33.9 (31.0-36.0) g/dl RDW 14.9 (11.0-16.0) % Plt Count 163 (160-400) X10*3/uL MPV 10.3 (9.4-12.4) fL Immature Gran % (Auto) 0.7 H (0.0-0.4) % Neut % (Auto) 89.1 H (45-73) % Lymph % (Auto) 4.3 L (20-40) % [place] % (Auto) 5.7 (2-11) % Eos % (Auto) 0.0 (0-4) % Baso % (Auto) 0.2 (0-2) % Lymph # (Auto) 0.6 L (1.2-4.9) X10*3/uL [place] # (Auto) 0.9 (0.1-1.2) X10*3/uL Eos # (Auto) 0.0 (0.0-0.4) X10*3/uL Baso # (Auto) 0.0 (0.0-0.2) X10*3/uL Abs Immat Gran (auto) 0.10 H (0.00-0.03) X10*3/uL Absolute Neuts (auto) 13.2 H (2.0-8.3) x10*3/uL Absolute Nucleated RBC 0.000 (0.0-0.012) X10*3/uL Nucleated RBC % (auto) 0.0 (0.0-0.2) /100WBC Sodium 136 (135-145) mmol/L Potassium 4.6 (3.3-5.1) mmol/L Chloride 102 (96-108) mmol/L Carbon Dioxide 23 (22-29) mmol/L Anion Gap 16 (12-20) BUN 52 H (9-16) mg/dL Creatinine 1.95 H (0.5-1.4) mg/dL Estim Creat Clear Calc 42.6 Estimated GFR 35 Random Glucose 135 H (60-115) mg/dL Lactic Acid 3.0 H* (0.5-2.0) mmol/L Lactic Acid F/U @ 2Hr (0.5-2.0) mmol/L Calcium 8.2 L D (8.4-10.2) mg/dL Magnesium 2.2 (1.6-2.6) mg/dL Total Bilirubin 1.0 (0.0-1.0) mg/dL AST 41 H (5-37) U/L ALT 59 H (0-40) U/L Alkaline Phosphatase 128 H (39-117) U/L Troponin I High Sens (<3.5-35.0) ng/L Total Protein 5.8 L (6.5-8.0) g/dL Albumin 3.2 L (3.5-5.0) g/dL 11/29/22 11/29/22 11/29/22 Range/Units 17:40 19:33 20:23 WBC (4.8-10.8) X10*3/uL RBC (4.60-5.80) X10*6/uL Hgb (14.0-18.0) g/dl Hct (42.0-52.0) % MCV (80.0-98.0) fL MCH (27.0-33.0) pg MCHC (31.0-36.0) g/dl RDW (11.0-16.0) % Plt Count (160-400) X10*3/uL MPV (9.4-12.4) fL Immature Gran % (Auto) (0.0-0.4) % Neut % (Auto) (45-73) % Lymph % (Auto) (20-40) % [place] % (Auto) (2-11) % Eos % (Auto) (0-4) % Baso % (Auto) (0-2) % Lymph # (Auto) (1.2-4.9) X10*3/uL [place] # (Auto) (0.1-1.2) X10*3/uL Eos # (Auto) (0.0-0.4) X10*3/uL Baso # (Auto) (0.0-0.2) X10*3/uL Abs Immat Gran (auto) (0.00-0.03) X10*3/uL Absolute Neuts (auto) (2.0-8.3) x10*3/uL Absolute Nucleated RBC (0.0-0.012) X10*3/uL Nucleated RBC % (auto) (0.0-0.2) /100WBC Sodium (135-145) mmol/L Potassium (3.3-5.1) mmol/L Chloride (96-108) mmol/L Carbon Dioxide (22-29) mmol/L Anion Gap (12-20) BUN (9-16) mg/dL Creatinine (0.5-1.4) mg/dL Estim Creat Clear Calc Estimated GFR Random Glucose (60-115) mg/dL Lactic Acid 2.0 (0.5-2.0) mmol/L Lactic Acid F/U @ 2Hr 1.2 (0.5-2.0) mmol/L Calcium (8.4-10.2) mg/dL Magnesium (1.6-2.6) mg/dL Total Bilirubin (0.0-1.0) mg/dL AST (5-37) U/L ALT (0-40) U/L Alkaline Phosphatase (39-117) U/L Troponin I High Sens 11.0 (<3.5-35.0) ng/L Total Protein (6.5-8.0) g/dL Albumin (3.5-5.0) g/dL <Moses Santiago - Last Filed: 11/29/22 22:43> Discharge Plan Discharge Clinical Impression: Acute unilateral obstructive uropathy, Urinary tract infection, Sepsis <SREE Linton - Last Filed: 11/29/22 17:24> Patient Disposition: Admitted As Inpatient <SREE Linton - Last Filed: 11/29/22 17:24>
--- NOTE | 2022-11-29 17:24 | ECG_ITS ---
Test Reason : WEAKNESS Blood Pressure : / mmHG Vent. Rate : 099 BPM Atrial Rate : 099 BPM P-R Int : 176 ms QRS Dur : 104 ms QT Int : 364 ms P-R-T Axes : 047 063 042 degrees QTc Int : 467 ms Normal sinus rhythm Normal ECG When compared with ECG of 21-APR-2022 17:31, Premature atrial complexes are no longer Present [place] interval has decreased Vent. rate has increased BY 47 BPM Referred By: Aicha Briggs Electronically Signed By:Joe Venegas
[2022-11-29 17:48] LABS: MANUAL DIFF FLAG NO
[2022-11-29 17:49] LABS: Basophils Percent Auto 0.2 % (0-2); Hematocrit 38.7 % (42.0-52.0); Hemoglobin 13.1 g/dl (14.0-18.0); Imm Gran Pct Auto 0.7 % (0.0-0.4); Lymphocytes Absolute Auto 0.6 X10*3/uL (1.2-4.9); Lymphocytes Percent Auto 4.3 % (20-40); Mean Corpuscular HGB Conc 33.9 g/dl (31.0-36.0); Mean Corpuscular Hemoglobin 26.8 pg (27.0-33.0); Mean Corpuscular Volume 79.1 fL (80.0-98.0); Mean Platelet Volume 10.3 fL (9.4-12.4); Monocytes Absolute Auto 0.9 X10*3/uL (0.1-1.2); Monocytes Percent Auto 5.7 % (2-11); Neutrophils Absolute Auto 13.2 x10*3/uL (2.0-8.3); Neutrophils Percent Auto 89.1 % (45-73); Platelet Count 163 X10*3/uL (160-400); Red Blood Count 4.89 X10*6/uL (4.60-5.80); Red Cell Distribution Width 14.9 % (11.0-16.0); White Blood Count 14.8 X10*3/uL (4.8-10.8)
--- NOTE | 2022-11-29 18:15 | PC.NURSE ---
Pt arrived ambulatory, reporting no pain at this time. Stating since starting his antx for UTI he has had SOB, and reporting a rapid HR this AM. Denies antx allergies. Denies SOB getting worse with any position changes. Getting xrays at this time
[2022-11-29 18:20] LABS: Alanine Aminotransferase 59 U/L (0-40); Albumin Level 3.2 g/dL (3.5-5.0); Alkaline Phosphatase 128 U/L (39-117); Anion Gap 16 (12-20); Aspartate Amino Transferase 41 U/L (5-37); Blood Urea Nitrogen 52 mg/dL (9-16); Calcium 8.2 mg/dL (8.4-10.2); Carbon Dioxide 23 mmol/L (22-29); Chloride 102 mmol/L (96-108); Creatinine Clr Calc Pharmacy 42.6; Estimated Glomerular Filt Rate 35; Glucose Random 135 mg/dL (60-115); Magnesium 2.2 mg/dL (1.6-2.6); Potassium 4.6 mmol/L (3.3-5.1); Sodium 136 mmol/L (135-145); Total Protein 5.8 g/dL (6.5-8.0)
--- NOTE | 2022-11-29 18:33 | PHA.MEDREC ---
Pharmacy Consult ? Medication Reconciliation Pharmacy has completed the medication reconciliation. Spoke to patient to confirm medications.
[2022-11-29] MEDS: 0.9 % Sodium Chloride 1,000 ML 999 ML IV ×2 (18:38→19:33)
[2022-11-29] MEDS: cefTRIAXone sodium 1 GM in 0.9 % Sodium Chloride 50 ML IV (18:43)
[2022-11-29 19:45] LABS: Reflex Lactate? Lactic Acid Added
[2022-11-29 20:40] LABS: ~Lactic Acid-LAB USE ONLY 1.2 mmol/L (0.5-2.0)
[2022-11-29 23:07] LABS: Appearance Urine Cloudy; Color Urine Yellow; Glucose Urine UA Negative (Negative); Leukocyte Esterase Urine Large (3+) (Negative); Nitrite Urine Positive (Negative); PH 6.5 (5.0-9.0); UMIC TRIGGER UACC YES; Urine Blood Moderate (2+) (Negative); Urine Ketones Negative (Negative); Urine Protein 100 (2+) mg/dL (Neg-Trace)
[2022-11-29 23:19] LABS: Bacteria Urine None Seen (None Seen); Squamous Epithelial Cell Urine 0-2 /HPF (0-2); UACC Culture Trigger YES; WBC Urine >50 /HPF (0-5)
[2022-11-29] MEDS: Acetaminophen 325 MG TABLET 650 MG PO (23:51)
[2022-11-30] VITALS (9 sets, daily range): BP systolic 117–160; BP diastolic 60–76; PULSE 63–107; RESP 16–28; TEMP 36.3–37.2; O2SAT 83–98
[2022-11-30 00:34] LABS: COVID-19 Test Negative (Negative); IDNOW Serial# 08D9AD1C
[2022-11-30] MEDS: Lactated Ringers 1,000 ML 100 ML IVCONT ×4 (00:40→23:54)
[2022-11-30] MEDS: Finasteride 5 MG TABLET PO ×2 (01:41→08:12)
[2022-11-30] MEDS: 0.9 % Sodium Chloride Flush 3 ML SYRINGE IVFLUSH (01:42)
[2022-11-30 05:51] LABS: MANUAL DIFF FLAG NO
[2022-11-30 05:54] LABS: Basophils Percent Auto 0.3 % (0-2); Eosinophils Absolute Auto 0.2 X10*3/uL (0.0-0.4); Eosinophils Percent Auto 1.3 % (0-4); Hematocrit 36.6 % (42.0-52.0); Hemoglobin 12.3 g/dl (14.0-18.0); Imm Gran Abs Auto 0.46 X10*3/uL (0.00-0.03); Imm Gran Pct Auto 3.5 % (0.0-0.4); Lymphocytes Absolute Auto 0.5 X10*3/uL (1.2-4.9); Lymphocytes Percent Auto 4.1 % (20-40); Mean Corpuscular HGB Conc 33.6 g/dl (31.0-36.0); Mean Corpuscular Hemoglobin 26.6 pg (27.0-33.0); Mean Corpuscular Volume 79.2 fL (80.0-98.0); Mean Platelet Volume 10.2 fL (9.4-12.4); Monocytes Absolute Auto 1.1 X10*3/uL (0.1-1.2); Monocytes Percent Auto 8.4 % (2-11); Neutrophils Absolute Auto 10.7 x10*3/uL (2.0-8.3); Neutrophils Percent Auto 82.4 % (45-73); Platelet Count 151 X10*3/uL (160-400); Red Blood Count 4.62 X10*6/uL (4.60-5.80)
--- NOTE | 2022-11-30 06:05 | P.HPHOSP_ITS ---
History of Present Illness Date of Service: 11/29/22 Chief Complaint: n/v 67-year-old male with past medical history of BPH, who comes into the hospital with complaints of generalized weakness, nausea, vomiting, abdominal pain, chills, urinary symptoms. States that his urinary symptoms started on Thursday, horses home past 2 days. Patient states that he was diagnosed with UTI on Thursday by his urologist, and he received antibiotics took a dose on Thursday and Thursday but today he started having nausea vomiting, and right flank pain therefore decided to come to the hospital. Patient reports chills, no diarrhea or constipation, no urinary symptoms and no lower extremity edema, no headache or change in vision, no numbness tingling or weakness On arrival to the ED patient hemodynamically stable with a slightly elevated heart rate Labs are significant for WBC count of 14.8, creatinine of 1.95 with a baseline of around 1.05, lactic of 3.0 improved after IV fluids, UA positive for leukocyte Estrace, nitrites, WBC Abdomen pelvic CT shows severe right renal hydronephrosis and moderate right hydroureter, heavy calcification is seen encasing the proximal and distal ends of the ureteral stent, bilateral nonobstructing renal calculi There is also evidence of possible atelectasis ? On chest CT ED discussed case with Urology, plan for possible surgical intervention on Thursday Review of Systems Review of Systems: Yes all other systems are reviewed and are negative [facility] Medical History BPH (benign prostatic hyperplasia) Detached retina Hernia Ureteral stent present Family History Sister Melanoma Surgical History History of eye surgery History of prostate surgery History of umbilical hernia repair Hx of varicose vein ligation Social History Alcohol intake: never Patient Tobacco Use Status: Former Tobacco user Quit Date: 20 years ago Tobacco use type: Cigarette Advance Directives: No Advance Directives Information Provided: No Meds Allergies Allergy/AdvReac Type Severity Reaction Status Date / Time No Known Allergies Allergy Verified 11/29/22 17:22 Active Medications: Current Medications Acetaminophen (Acetaminophen 325 Mg Tablet) 650 mg PO Q6H PRN PRN Reason: Pain, Mild (Pain Scale 1-3) Last Admin: 11/29/22 23:51 Dose: 650 mg Ascorbic Acid (Ascorbic Acid 500 Mg Tablet) 500 mg PO DAILY [facility] Docusate Sodium (Docusate Sodium 100 Mg Capsule) 100 mg PO DAILY PRN PRN Reason: Constipation Finasteride (Finasteride 5 Mg Tablet) 5 mg PO DAILY [facility] Last Admin: 11/30/22 01:41 Dose: 5 mg Ceftriaxone Sodium 1 gm/ (Sodium Chloride) 50 mls @ 100 mls/hr IV Q24H [facility] Lactated Ringer's (Lr) 1,000 mls @ 100 mls/hr IVCONT .Q10H [facility] Last Admin: 11/30/22 00:40 Dose: 100 mls/hr Multivitamins/Vitamin C (Multivitamin Tablet) 1 tab PO DAILY [facility] Ondansetron HCl (Ondansetron Hcl 4 Mg/2 Ml Vial) 4 mg IVPUSH Q8H PRN PRN Reason: Nausea and Vomiting Pharmacy Consult (Consult Rx Perform Med Rec) 1 each MISCELLANE ONCE PRN PRN Reason: Consult order Sodium Chloride (0.9 % Sodium Chloride Flush 3 Ml Syringe) 3 ml IVFLUSH QSHIFT [facility] Last Admin: 11/30/22 01:42 Dose: 3 ml Vitamin D (Cholecalciferol (Vitamin D3) 25 Mcg Tablet) 50 mcg PO DAILY [facility] Zinc Sulfate (Zinc Sulfate 220 Mg Capsule) 220 mg PO DAILY [facility] Home Medications Medication Instructions Recorded Confirmed Last Taken Type ascorbic acid (vitamin C) 500 mg 500 mg PO DAILY 11/29/22 11/29/22 Unknown History tablet (Vitamin C) cholecalciferol (vitamin D3) 50 50 mcg PO DAILY 11/29/22 11/29/22 Unknown History mcg (2,000 unit) tablet (Vitamin D3) multivitamin 1 tab PO DAILY 11/29/22 11/29/22 Unknown History zinc acetate 50 mg (zinc) capsule 50 mg PO DAILY 11/29/22 11/29/22 Unknown History Physical Exam Vital Signs and Narrative: Vital Signs: Last Vital Signs Temp 98 F 11/30/22 06:04 Pulse 74 11/30/22 06:04 Resp 18 11/30/22 06:04 BP 127/61 11/30/22 06:04 Pulse Ox 94 11/30/22 06:04 O2 Del Method Room Air 11/30/22 06:04 BMI result Body Mass Index 24.3 Const: Other: Patient shaking from chills General: cooperative and no acute distress Orientation/consciousness: patient oriented x3 Eyes: General: appearance normal, both eyes and all related structures Resp: Effort & Inspection: normal respiratory effort Auscultation: clear to auscultation bilaterally Cardio: Rate: regular rate Rhythm: regular rhythm GI: Other: Suprapubic tenderness, no rebound or guarding Palpation (GI): Soft to palpation Auscultation: normal bowel sounds : Other: Right CVA tenderness Skin: General skin exam: no rashes or lesions noted Neuro: General: patient oriented x3 Cognition (Neuro): normal cognition Extrem: General: Yes normal to inspection and Yes no pedal edema Results Labs 11/30/22 05:36 11/29/22 17:40 Labs: Laboratory Results - last 24 hr 11/29/22 11/29/22 11/29/22 17:40 17:40 17:40 MCV 79.1 L MCH 26.8 L MCHC 33.9 RDW 14.9 Plt Count 163 MPV 10.3 Immature Gran % (Auto) 0.7 H Neut % (Auto) 89.1 H Lymph % (Auto) 4.3 L Bremer % (Auto) 5.7 Eos % (Auto) 0.0 Baso % (Auto) 0.2 Lymph # (Auto) 0.6 L Bremer # (Auto) 0.9 Eos # (Auto) 0.0 Baso # (Auto) 0.0 Abs Immat Gran (auto) 0.10 H Absolute Neuts (auto) 13.2 H Absolute Nucleated RBC 0.000 Nucleated RBC % (auto) 0.0 Anion Gap 16 Estim Creat Clear Calc 42.6 Estimated GFR 35 Random Glucose 135 H Lactic Acid 3.0 H* Lactic Acid F/U @ 2Hr Calcium 8.2 L D Magnesium 2.2 Total Bilirubin 1.0 AST 41 H ALT 59 H Alkaline Phosphatase 128 H Troponin I High Sens Total Protein 5.8 L Albumin 3.2 L Urine Color Urine Appearance Urine pH Ur Specific [place] Urine Protein Urine Glucose (UA) Urine Ketones Urine Blood Urine Nitrite Ur Leukocyte Esterase Urine RBC Urine WBC Ur Squamous Epith Cells Urine Bacteria Hyaline Casts COVID-19 (DEANNA) COVID-19 Clin Com 11/29/22 11/29/22 11/29/22 17:40 19:33 20:23 MCV MCH MCHC RDW Plt Count MPV Immature Gran % (Auto) Neut % (Auto) Lymph % (Auto) Bremer % (Auto) Eos % (Auto) Baso % (Auto) Lymph # (Auto) Bremer # (Auto) Eos # (Auto) Baso # (Auto) Abs Immat Gran (auto) Absolute Neuts (auto) Absolute Nucleated RBC Nucleated RBC % (auto) Anion Gap Estim Creat Clear Calc Estimated GFR Random Glucose Lactic Acid 2.0 Lactic Acid F/U @ 2Hr 1.2 Calcium Magnesium Total Bilirubin AST ALT Alkaline Phosphatase Troponin I High Sens 11.0 Total Protein Albumin Urine Color Urine Appearance Urine pH Ur Specific [place] Urine Protein Urine Glucose (UA) Urine Ketones Urine Blood Urine Nitrite Ur Leukocyte Esterase Urine RBC Urine WBC Ur Squamous Epith Cells Urine Bacteria Hyaline Casts COVID-19 (DEANNA) COVID-19 [facility] 11/29/22 11/30/22 11/30/22 22:59 00:14 05:36 MCV 79.2 L MCH 26.6 L MCHC 33.6 RDW 15.0 Plt Count 151 L MPV 10.2 Immature Gran % (Auto) 3.5 H Neut % (Auto) 82.4 H Lymph % (Auto) 4.1 L Bremer % (Auto) 8.4 Eos % (Auto) 1.3 Baso % (Auto) 0.3 Lymph # (Auto) 0.5 L Bremer # (Auto) 1.1 Eos # (Auto) 0.2 Baso # (Auto) 0.0 Abs Immat Gran (auto) 0.46 H Absolute Neuts (auto) 10.7 H Absolute Nucleated RBC 0.000 Nucleated RBC % (auto) 0.0 Anion Gap Estim Creat Clear Calc Estimated GFR Random Glucose Lactic Acid Lactic Acid F/U @ 2Hr Calcium Magnesium Total Bilirubin AST ALT Alkaline Phosphatase Troponin I High Sens Total Protein Albumin Urine Color Yellow Urine Appearance Cloudy Urine pH 6.5 Ur Specific [place] 1.020 Urine Protein 100 (2+) H Urine Glucose (UA) Negative Urine Ketones Negative Urine Blood Moderate (2+) H Urine Nitrite Positive H Ur Leukocyte Esterase Large (3+) H Urine RBC 3-5 H Urine WBC >50 H Ur Squamous Epith Cells 0-2 Urine Bacteria None Seen Hyaline Casts 3-5 COVID-19 (DEANNA) Negative COVID-19 Clin Com See Note Imaging Radiologist's Impressions: Impressions Chest X-Ray 11/29/22 18:18 IMPRESSION: No convincing radiographic evidence of pneumonia or pulmonary edema. No significant interval change is noted compared to chest x-ray obtained earlier on the same day. Abdomen/Pelvis CT 11/29/22 19:00 IMPRESSION: 1. Severe right renal hydronephrosis and moderate right hydroureter are seen with a right ureteral stent in place. Heavy calcification is seen encasing the proximal and distal ends of the ureteral stent. 2. Bilateral nonobstructing renal calculi. 3. Enlarged heterogeneous prostate gland. 4. Cholelithiasis with no evidence of acute cholecystitis or biliary obstruction. 5. Small fat-containing direct right inguinal hernia. 6. Masslike opacity in the posterior right lower lobe, in region of previously seen chronic linear atelectasis, suggesting rounded atelectasis however, the finding is incompletely included in the [id number] of this exam and nonemergent CT scan of the chest is recommended for further evaluation. Fleischner guidelines were followed. Assessment and Plan (1) Acute unilateral obstructive uropathy: Status: Acute (2) Urinary tract infection: Qualifiers: Urinary tract infection type: acute cystitis Hematuria presence: without hematuria Qualified Code(s): N30.00 - Acute cystitis without hematuria Status: Acute (3) Sepsis: Qualifiers: Sepsis type: sepsis due to unspecified organism Sepsis acute organ dysfunction status: without acute organ dysfunction Qualified Code(s): A41.9 - Sepsis, unspecified organism Status: Acute (4) Blockage of stent of ureter: Status: Acute (5) Hydronephrosis: Qualifiers: Hydronephrosis type: unspecified Qualified Code(s): N13.30 - Unspecified hydronephrosis Status: Acute Plan 67-year-old male with past medical history of stent in the ureter on the right, presents the hospital with weakness, nausea vomiting, chills, as well as urinary symptoms and right flank pain found to have acute UTI and obstructing uropathy # acute unilateral obstructive uropathy with severe hydronephrosis secondary to blockage of stent of ureter - severe hydronephrosis on the right, evidence of calcification of ureter stent - nonobstructing stones bilaterally - evidence of urinary tract infection - will treat with IV antibiotics - urology consulted - NPO after midnight for possible intervention # acute sepsis - secondary to UTI/obstructing uropathy - will treat with IV antibiotics - follow cultures # UTI acute - in the setting of stent obstructing hydronephrosis - will treat with IV antibiotics - follow cultures DVT prophylaxis: SCDs Given patient's sepsis with need for IV antibiotics patient will require minimum 2 nights inpatient hospital stay further management monitoring Time Spent With Patient Time: Total time managing care of this patient today ____ minutes. Quality Stroke Does the patient have a stroke diagnosis?: No VTE Prior VTE?: No VTE Risk Level:: Medical - moderate - high VTE Device Contraindication: Treatment Not Indicated VTE Drug Contraindication: N/A - Med Ordered
[2022-11-30 06:22] LABS: Anion Gap 13 (12-20); Blood Urea Nitrogen 47 mg/dL (9-16); Calcium 7.9 mg/dL (8.4-10.2); Carbon Dioxide 20 mmol/L (22-29); Chloride 107 mmol/L (96-108); Creatinine Clr Calc Pharmacy 47.2; Estimated Glomerular Filt Rate 39; Glucose Random 113 mg/dL (60-115); Potassium 3.6 mmol/L (3.3-5.1); Sodium 136 mmol/L (135-145)
[2022-11-30] MEDS: Cholecalciferol (Vitamin D3) 25 MCG TABLET 50 MCG PO (08:12)
[2022-11-30] MEDS: Ascorbic Acid 500 MG TABLET PO (08:12)
[2022-11-30] MEDS: Multivitamin TABLET 1 TAB PO (08:14)
[2022-11-30] MEDS: Zinc Sulfate 220 MG CAPSULE PO (09:06)
--- NOTE | 2022-11-30 10:18 | P.PNIM_ITS ---
Subjective Subjective Date of Service: 11/30/22 Interval History: Feels comfortable denies any pain no reported overnight events Review of Systems Review of Systems: Yes all other systems are reviewed and are negative Physical Exam Vital Signs: Vital Signs: Last Vital Signs Temp 98 F 11/30/22 06:04 Pulse 71 11/30/22 07:20 Resp 16 11/30/22 07:20 BP 120/76 11/30/22 07:20 Pulse Ox 94 11/30/22 07:20 O2 Del Method Room Air 11/30/22 07:20 BMI result Body Mass Index 24.3 Const: Other: Constitutional : Awake, interactive, not in distress Neck : Normal inspection, Supple Cardiovascular : RRR, no JVP, no lower extremity edema Respiratory : good bilateral air entry, no crackles, wheezes or rhonchi Gastrointestinal: soft, lax, Normal bowel sounds, Non tender Skin : Warm, Dry Neurological : Alert & oriented x3, No focal deficit Objective Data Active Medications Acetaminophen (Acetaminophen 325 Mg Tablet) 650 mg PO Q6H PRN PRN Reason: Pain, Mild (Pain Scale 1-3) Last Admin: 11/29/22 23:51 Dose: 650 mg Documented By: ARNULFO Ascorbic Acid (Ascorbic Acid 500 Mg Tablet) 500 mg PO DAILY [facility] Last Admin: 11/30/22 08:12 Dose: 500 mg Documented By: TOMER Docusate Sodium (Docusate Sodium 100 Mg Capsule) 100 mg PO DAILY PRN PRN Reason: Constipation Finasteride (Finasteride 5 Mg Tablet) 5 mg PO DAILY [facility] Last Admin: 11/30/22 08:12 Dose: 5 mg Documented By: TOMER Ceftriaxone Sodium 1 gm/ (Sodium Chloride) 50 mls @ 100 mls/hr IV Q24H [facility] Lactated Ringer's (Lr) 1,000 mls @ 100 mls/hr IVCONT .Q10H [facility] Last Admin: 11/30/22 09:06 Dose: 100 mls/hr Documented By: TOMER Multivitamins/Vitamin C (Multivitamin Tablet) 1 tab PO DAILY [facility] Last Admin: 11/30/22 08:14 Dose: 1 tab Documented By: TOMER Ondansetron HCl (Ondansetron Hcl 4 Mg/2 Ml Vial) 4 mg IVPUSH Q8H PRN PRN Reason: Nausea and Vomiting Pharmacy Consult (Consult Rx Perform Med Rec) 1 each MISCELLANE ONCE PRN PRN Reason: Consult order Sodium Chloride (0.9 % Sodium Chloride Flush 3 Ml Syringe) 3 ml IVFLUSH QSHIFT [facility] Last Admin: 11/30/22 08:14 Dose: Not Given Documented By: TOMER Non-Admin Reason: IV Running Vitamin D (Cholecalciferol (Vitamin D3) 25 Mcg Tablet) 50 mcg PO DAILY [facility] Last Admin: 11/30/22 08:12 Dose: 50 mcg Documented By: TOMER Zinc Sulfate (Zinc Sulfate 220 Mg Capsule) 220 mg PO DAILY [facility] Last Admin: 11/30/22 09:06 Dose: 220 mg Documented By: TOMER Labs 11/30/22 05:36 11/30/22 05:36 Labs: Laboratory Results - last 24 hr 11/29/22 11/29/22 11/29/22 17:40 17:40 17:40 MCV 79.1 L MCH 26.8 L MCHC 33.9 RDW 14.9 Plt Count 163 MPV 10.3 Immature Gran % (Auto) 0.7 H Neut % (Auto) 89.1 H Lymph % (Auto) 4.3 L [place] % (Auto) 5.7 Eos % (Auto) 0.0 Baso % (Auto) 0.2 Lymph # (Auto) 0.6 L [place] # (Auto) 0.9 Eos # (Auto) 0.0 Baso # (Auto) 0.0 Abs Immat Gran (auto) 0.10 H Absolute Neuts (auto) 13.2 H Absolute Nucleated RBC 0.000 Nucleated RBC % (auto) 0.0 Anion Gap 16 Estim Creat Clear Calc 42.6 Estimated GFR 35 Random Glucose 135 H Lactic Acid 3.0 H* Lactic Acid F/U @ 2Hr Calcium 8.2 L D Magnesium 2.2 Total Bilirubin 1.0 AST 41 H ALT 59 H Alkaline Phosphatase 128 H Troponin I High Sens Total Protein 5.8 L Albumin 3.2 L Urine Color Urine Appearance Urine pH Ur Specific [place] Urine Protein Urine Glucose (UA) Urine Ketones Urine Blood Urine Nitrite Ur Leukocyte Esterase Urine RBC Urine WBC Ur Squamous Epith Cells Urine Bacteria Hyaline Casts COVID-19 ([facility]) COVID-19 Clin Com 11/29/22 11/29/22 11/29/22 17:40 19:33 20:23 MCV MCH MCHC RDW Plt Count MPV Immature Gran % (Auto) Neut % (Auto) Lymph % (Auto) [place] % (Auto) Eos % (Auto) Baso % (Auto) Lymph # (Auto) [place] # (Auto) Eos # (Auto) Baso # (Auto) Abs Immat Gran (auto) Absolute Neuts (auto) Absolute Nucleated RBC Nucleated RBC % (auto) Anion Gap Estim Creat Clear Calc Estimated GFR Random Glucose Lactic Acid 2.0 Lactic Acid F/U @ 2Hr 1.2 Calcium Magnesium Total Bilirubin AST ALT Alkaline Phosphatase Troponin I High Sens 11.0 Total Protein Albumin Urine Color Urine Appearance Urine pH Ur Specific [place] Urine Protein Urine Glucose (UA) Urine Ketones Urine Blood Urine Nitrite Ur Leukocyte Esterase Urine RBC Urine WBC Ur Squamous Epith Cells Urine Bacteria Hyaline Casts COVID-19 ([facility]NA) COVID-[employer] Com 11/29/22 11/30/22 11/30/22 22:59 00:14 05:36 MCV 79.2 L MCH 26.6 L MCHC 33.6 RDW 15.0 Plt Count 151 L MPV 10.2 Immature Gran % (Auto) 3.5 H Neut % (Auto) 82.4 H Lymph % (Auto) 4.1 L [place] % (Auto) 8.4 Eos % (Auto) 1.3 Baso % (Auto) 0.3 Lymph # (Auto) 0.5 L [place] # (Auto) 1.1 Eos # (Auto) 0.2 Baso # (Auto) 0.0 Abs Immat Gran (auto) 0.46 H Absolute Neuts (auto) 10.7 H Absolute Nucleated RBC 0.000 Nucleated RBC % (auto) 0.0 Anion Gap Estim Creat Clear Calc Estimated GFR Random Glucose Lactic Acid Lactic Acid F/U @ 2Hr Calcium Magnesium Total Bilirubin AST ALT Alkaline Phosphatase Troponin I High Sens Total Protein Albumin Urine Color Yellow Urine Appearance Cloudy Urine pH 6.5 Ur Specific [place] 1.020 Urine Protein 100 (2+) H Urine Glucose (UA) Negative Urine Ketones Negative Urine Blood Moderate (2+) H Urine Nitrite Positive H Ur Leukocyte Esterase Large (3+) H Urine RBC 3-5 H Urine WBC >50 H Ur Squamous Epith Cells 0-2 Urine Bacteria None Seen Hyaline Casts 3-5 COVID-19 ([facility]) Negative COVID-19 Clin Com See Note 11/30/22 05:36 MCV MCH MCHC RDW Plt Count MPV Immature Gran % (Auto) Neut % (Auto) Lymph % (Auto) [place] % (Auto) Eos % (Auto) Baso % (Auto) Lymph # (Auto) [place] # (Auto) Eos # (Auto) Baso # (Auto) Abs Immat Gran (auto) Absolute Neuts (auto) Absolute Nucleated RBC Nucleated RBC % (auto) Anion Gap 13 Estim Creat Clear Calc 47.2 Estimated GFR 39 Random Glucose 113 Lactic Acid Lactic Acid F/U @ 2Hr Calcium 7.9 L Magnesium Total Bilirubin AST ALT Alkaline Phosphatase Troponin I High Sens Total Protein Albumin Urine Color Urine Appearance Urine pH Ur Specific [place] Urine Protein Urine Glucose (UA) Urine Ketones Urine Blood Urine Nitrite Ur Leukocyte Esterase Urine RBC Urine WBC Ur Squamous Epith Cells Urine Bacteria Hyaline Casts COVID-19 ([facility]) COVID-19 Clin Com Assessment and Plan (1) Urinary tract infection: Status: Acute (2) Acute unilateral obstructive uropathy: Status: Acute Plan 67-year-old male with past medical history of stent in the ureter on the right, presents the hospital with weakness, nausea vomiting, chills, as well as urinary symptoms and right flank pain found to have acute UTI and obstructing uropathy # acute unilateral obstructive uropathy with severe hydronephrosis secondary to blockage of stent of ureter severe hydronephrosis on the right, evidence of calcification of ureter stent, seems chronic with no acute pain nonobstructing stones bilaterally urology to do procedure tomorrow NPO post midnight # acute sepsis secondary to UTI/obstructing uropathy IV antibiotics follow cultures # BPH Finasteride DVT prophylaxis: SCDs Given patient's sepsis with need for IV antibiotics patient will require overnight inpatient hospital stay further management monitoring Time Spent With Patient Time: Total time managing care of this patient today ____ minutes. Quality Stroke Does the patient have a stroke diagnosis?: No VTE Prior VTE?: No VTE Risk Level:: Medical - moderate - high VTE Device Contraindication: Treatment Not Indicated VTE Drug Contraindication: N/A - Med Ordered
[2022-11-30] MEDS: Acetaminophen 325 MG TABLET 650 MG PO (15:54)
--- NOTE | 2022-11-30 16:01 | PC.NURSE ---
Addendum entered by Maritza Galaviz RN 11/30/22 18:37: All pt symptoms resolved within 15 minutes. Pt currently on RA saturating 95-96%. Original Note: At 1541 entered pt room, Pt appears SOB and is experiencing rigors.Pt Tachypneic RR 28 o2 83% on room air, BP 160/70 manually, HR 100-105, Temp 98.4. Pt placed on 2L nc per MD Moreau orders and given PRN Tylenol, o2 levels increased 97% on 2L. Pt has bed alarm on and instructed to ring for assistance. Will continue to monitor for changes.
[2022-11-30] MEDS: cefTRIAXone sodium 1 GM in 0.9 % Sodium Chloride 50 ML IV (17:37)
[2022-12-01] VITALS (8 sets, daily range): BP systolic 118–156; BP diastolic 75–84; PULSE 60–70; RESP 15–18; TEMP 36.1–36.9; O2SAT 94–99
[2022-12-01 06:36] LABS: Hematocrit 36.1 % (42.0-52.0); Hemoglobin 12.1 g/dl (14.0-18.0); Mean Corpuscular HGB Conc 33.5 g/dl (31.0-36.0); Mean Corpuscular Hemoglobin 26.1 pg (27.0-33.0); Mean Corpuscular Volume 77.8 fL (80.0-98.0); Mean Platelet Volume 10.4 fL (9.4-12.4); Platelet Count 157 X10*3/uL (160-400); Red Blood Count 4.64 X10*6/uL (4.60-5.80); Red Cell Distribution Width 15.1 % (11.0-16.0); White Blood Count 11.2 X10*3/uL (4.8-10.8)
[2022-12-01 07:20] LABS: Anion Gap 10 (12-20); Blood Urea Nitrogen 35 mg/dL (9-16); Calcium 7.6 mg/dL (8.4-10.2); Carbon Dioxide 24 mmol/L (22-29); Chloride 109 mmol/L (96-108); Creatinine Clr Calc Pharmacy 61.1; Estimated Glomerular Filt Rate 53; Glucose Random 111 mg/dL (60-115); Potassium 3.8 mmol/L (3.3-5.1); Sodium 139 mmol/L (135-145)
--- NOTE | 2022-12-01 08:04 | P.CNUR_ITS ---
History of Present Illness Consult details Consult date: 11/30/22 Narrative: CC: hematuria Presents to emergency room with hematuria Found to have renal stone right side with question of retained stent Had undergone laser prostatectomy last April Symptoms had developed over past week Not associated with fever, chills, dysuria Imaging - CT severe right renal hydronephrosis with a large extrarenal pelvis and moderate right proximal and mid hydroureter. There is a right ureteral stent seen extending from the bladder up to the renal pelvis. Heavy calcification encasing the proximal pigtail of the ureteral stent and extending along the proximal stent as well as the distal pigtail of the stent in the bladder are noted. Several nonobstructing calculi are seen throughout the right kidney with largest calcification in the lower pole having a staghorn appearance and measuring 1.8 x 1.2 cm Recommend cystoscopy with retrograde, removal stent and removal of stone Review of Systems Constitutional: Constitutional: Reports as per HPI and Reports no additional constitutional complaints Cardiovascular: Cardiovascular: Reports as per HPI and Reports no additional cardiovascular complaints Respiratory: Respiratory: Reports as per HPI and Reports no additional respiratory complaints Gastrointestinal: Gastrointestinal: Reports as per HPI and Reports no additional gastrointestinal complaints Genitourinary: Genitourinary: Reports as per HPI Musculoskeletal: Musculoskeletal: Reports no additional musculoskeletal complaints and Reports as per HPI Neurologic: Reports system reviewed and no additional complaints, except as documented and Reports as per HPI [facility] Past Medical History Medical History BPH (benign prostatic hyperplasia) Detached retina Hernia Ureteral stent present Family History Family History Sister Melanoma Surgical History Surgical History History of eye surgery History of prostate surgery History of umbilical hernia repair Hx of varicose vein ligation Social History Social History Household Members: Spouse Do you presently have visiting nurse or other home services: No Alcohol intake: never Patient Tobacco Use Status: Former Tobacco user Quit Date: 20 years ago Tobacco use type: Cigarette e-Cigarette/Vaping Use: Former Use Second Hand Smoke Exposure: No Meds Allergies Allergy/AdvReac Type Severity Reaction Status Date / Time No Known Allergies Allergy Verified 11/29/22 17:22 Active Medications: Current Medications Acetaminophen (Acetaminophen 325 Mg Tablet) 650 mg PO Q6H PRN PRN Reason: Pain, Mild (Pain Scale 1-3) Last Admin: 11/30/22 15:54 Dose: 650 mg Ascorbic Acid (Ascorbic Acid 500 Mg Tablet) 500 mg PO DAILY [facility] Last Admin: 11/30/22 08:12 Dose: 500 mg Docusate Sodium (Docusate Sodium 100 Mg Capsule) 100 mg PO DAILY PRN PRN Reason: Constipation Finasteride (Finasteride 5 Mg Tablet) 5 mg PO DAILY [facility] Last Admin: 11/30/22 08:12 Dose: 5 mg Ceftriaxone Sodium 1 gm/ (Sodium Chloride) 50 mls @ 100 mls/hr IV Q24H [facility] Last Infusion: 11/30/22 18:15 Dose: Infused Lactated Ringer's (Lr) 1,000 mls @ 100 mls/hr IVCONT .Q10H [facility] Last Admin: 11/30/22 23:54 Dose: 100 mls/hr Levofloxacin (Levaquin) 500 mg in 100 mls @ 100 mls/hr IV PREOP ONE Stop: 12/01/22 08:47 Multivitamins/Vitamin C (Multivitamin Tablet) 1 tab PO DAILY [facility] Last Admin: 11/30/22 08:14 Dose: 1 tab Ondansetron HCl (Ondansetron Hcl 4 Mg/2 Ml Vial) 4 mg IVPUSH Q8H PRN PRN Reason: Nausea and Vomiting Pharmacy Consult (Consult Rx Perform Med Rec) 1 each MISCELLANE ONCE PRN PRN Reason: Consult order Sodium Chloride (0.9 % Sodium Chloride Flush 3 Ml Syringe) 3 ml IVFLUSH QSHIFT [facility] Last Admin: 12/01/22 07:44 Dose: Not Given Vitamin D (Cholecalciferol (Vitamin D3) 25 Mcg Tablet) 50 mcg PO DAILY [facility] Last Admin: 11/30/22 08:12 Dose: 50 mcg Zinc Sulfate (Zinc Sulfate 220 Mg Capsule) 220 mg PO DAILY [facility] Last Admin: 11/30/22 09:06 Dose: 220 mg Home Medications Medication Instructions Recorded Confirmed Last Taken Type ascorbic acid (vitamin C) 500 mg 500 mg PO DAILY 11/29/22 11/29/22 Unknown History tablet (Vitamin C) cholecalciferol (vitamin D3) 50 50 mcg PO DAILY 11/29/22 11/29/22 Unknown History mcg (2,000 unit) tablet (Vitamin D3) multivitamin 1 tab PO DAILY 11/29/22 11/29/22 Unknown History zinc acetate 50 mg (zinc) capsule 50 mg PO DAILY 11/29/22 11/29/22 Unknown History Physical Exam Vital Signs: Vital Signs: Last Vital Signs Temp 97.4 F 12/01/22 03:15 Pulse 62 12/01/22 03:15 Resp 16 12/01/22 03:15 BP 154/83 H 12/01/22 03:15 Pulse Ox 99 12/01/22 03:15 O2 Del Method Room Air 12/01/22 03:15 O2 Flow Rate 2 11/30/22 15:49 BMI result Body Mass Index 24.3 Const: General: cooperative, healthy appearing, comfortable and no acute dist ress Orientation/consciousness: patient oriented x3 HEENT: Face and sinus: Yes normal facial exam Mouth: moist mucous membranes Neck: Neck: Yes normal visual inspection, Yes full ROM and Yes trachea midline Chest: Chest palpation & inspection: normal inspection of the chest Resp: Effort & Inspection: normal respiratory effort, able to speak in complete sentences and no respiratory distress GI: Inspection: Yes normal to inspection Back/Spine/Pelvis: Cervical Spine: normal cervical lordosis Thoracic/Lumbar Spine: thoracic and lumbar spine normal to inspection Skin: General skin exam: no rashes or lesions noted Neuro: General: patient oriented x3, tone normal and moves all extremities Extrem: General: Yes normal to inspection and Yes capillary refill normal Results Labs 12/01/22 06:25 12/01/22 06:25 Labs: Abnormal lab results 12/01/22 12/01/22 Range/Units 06:25 06:25 WBC 11.2 H (4.8-10.8) X10*3/uL Hgb 12.1 L (14.0-18.0) g/dl Hct 36.1 L (42.0-52.0) % MCV 77.8 L (80.0-98.0) fL MCH 26.1 L (27.0-33.0) pg Plt Count 157 L (160-400) X10*3/uL Chloride 109 H (96-108) mmol/L Anion Gap 10 L (12-20) BUN 35 H (9-16) mg/dL Calcium 7.6 L (8.4-10.2) mg/dL Short CBC 12/01/22 Range/Units 06:25 WBC 11.2 H (4.8-10.8) X10*3/uL Hgb 12.1 L (14.0-18.0) g/dl Hct 36.1 L (42.0-52.0) % Plt Count 157 L (160-400) X10*3/uL BMP 12/01/22 06:25 Sodium 139 Potassium 3.8 Chloride 109 H Carbon Dioxide 24 BUN 35 H Creatinine 1.36 Calcium 7.6 L Urine 11/29/22 Range/Units 22:59 Urine Color Yellow Urine Appearance Cloudy Urine pH 6.5 (5.0-9.0) Ur Specific [place] 1.020 (1.005-1.025) Urine Protein 100 (2+) H (Neg-Trace) mg/dL Urine Glucose (UA) Negative (Negative) mg/dL All other labs normal. Assessment and Plan (1) Hydronephrosis: Qualifiers: Hydronephrosis type: unspecified Qualified Code(s): N13.30 - Unspecified hydronephrosis Status: Acute (2) Renal calculus, right: Status: Acute Plan Ureteroscopy We discussed the nature of the decision and reasonable alternatives for performing ureteroscopy. Options such as medical therapy were discussed. Interventions include chemical dissolution, ESWL, ureteroscopy with laser lithotripsy and stent placement, PCNL. The relative uncertainties and benefits related to each alternate procedure were adequately discussed. General surgical risks including, but not limited to - pain, bleeding, infection, myocardial infarction, pulmonary embolus, deep vein thrombosis and cerebrovascular accident which may result in further hospitalization were discussed. Full disclosure of the procedure as well as all major risks, benefits and complications were discussed including but not limited to damage to the urethra, bladder and kidney infection, damage to the ureter, stent migration or malposit ion, scarring to the renal pelvis, remnant stone fragments, subsequent stone passage with need for secondary procedures. The overall secondary procedure rate is approximately 10-15%. The overall clearance rate is approximately 90-95%. Success of the procedure in the short-term does not necessarily guarantee that long-term success will be maintained. Suitable follow up will need to be maintained. The patient showed understanding of discussion and wishes to proceed with - cystoscopy, retrograde, ureteroscopy, possible lithotripsy/stone basketing and stent on the right side Time Spent With Patient Time: Total time managing care of this patient today ____ minutes. Procedures Date of Service Date of Service: 11/30/22
[2022-12-01] MEDS: Finasteride 5 MG TABLET PO (09:22)
--- NOTE | 2022-12-01 09:22 | MHC.CM.PN ---
PATIENT LIVES WITH /HCP (ON FILE AND VERIFIED) FULLY INDEPENDENT NO DME OR VNA SERVICES COVID VACCINATED AND BOOSTED. HE HAS A NEW PCP VISIT SCHEDULED TO SEE DR CRANE PREVIOUSLY, HE HAD DR PERAZA AT [facility] PLAN IS O.R. TODAY AND LIKELY RETURN HOME TOMORROW - NO SERVICES TO TRANSPORT. CASE MANAGEMENT FOLLOWING
[2022-12-01] MEDS: Lactated Ringers 1,000 ML 100 ML IVCONT ×2 (10:18→23:02)
--- NOTE | 2022-12-01 11:17 | P.PNIM_ITS ---
Subjective Subjective Date of Service: 12/01/22 Interval History: Feels comfortable denies any pain No more chills episodes overnight for urological procedure today no reported overnight events Review of Systems Review of Systems: Yes all other systems are reviewed and are negative Physical Exam Vital Signs: Vital Signs: Last Vital Signs Temp 98.4 F 12/01/22 08:00 Pulse 67 12/01/22 08:00 Resp 17 12/01/22 08:00 BP 132/75 12/01/22 08:00 Pulse Ox 94 12/01/22 08:00 O2 Del Method Room Air 12/01/22 08:00 O2 Flow Rate 2 11/30/22 15:49 BMI result Body Mass Index 24.3 Const: Other: Constitutional : Awake, interactive, not in distress Neck : Normal inspection, Supple Cardiovascular : RRR, no JVP, no lower extremity edema Respiratory : good bilateral air entry, no crackles, wheezes or rhonchi Gastrointestinal: soft, lax, Normal bowel sounds, Non tender Skin : Warm, Dry Neurological : Alert & oriented x3, No focal deficit Objective Data Active Medications Acetaminophen (Acetaminophen 325 Mg Tablet) 650 mg PO Q6H PRN PRN Reason: Pain, Mild (Pain Scale 1-3) Last Admin: 11/30/22 15:54 Dose: 650 mg Documented By: ALVARO Ascorbic Acid (Ascorbic Acid 500 Mg Tablet) 500 mg PO DAILY [facility] Last Admin: 12/01/22 09:23 Dose: Not Given Documented By: SARI Non-Admin Reason: NPO Docusate Sodium (Docusate Sodium 100 Mg Capsule) 100 mg PO DAILY PRN PRN Reason: Constipation Finasteride (Finasteride 5 Mg Tablet) 5 mg PO DAILY [facility] Last Admin: 12/01/22 09:22 Dose: 5 mg Documented By: SARI Ceftriaxone Sodium 1 gm/ (Sodium Chloride) 50 mls @ 100 mls/hr IV Q24H [facility] Last Infusion: 11/30/22 18:15 Dose: 100 mls/hr Documented By: ALVARO Lactated Ringer's (Lr) 1,000 mls @ 100 mls/hr IVCONT .Q10H [facility] Last Admin: 12/01/22 10:18 Dose: 100 mls/hr Documented By: SARI Multivitamins/Vitamin C (Multivitamin Tablet) 1 tab PO DAILY [facility] Last Admin: 12/01/22 09:23 Dose: Not Given Documented By: SARI Non-Admin Reason: NPO Ondansetron HCl (Ondansetron Hcl 4 Mg/2 Ml Vial) 4 mg IVPUSH Q8H PRN PRN Reason: Nausea and Vomiting Pharmacy Consult (Consult Rx Perform Med Rec) 1 each MISCELLANE ONCE PRN PRN Reason: Consult order Sodium Chloride (0.9 % Sodium Chloride Flush 3 Ml Syringe) 3 ml IVFLUSH QSHIFT [facility] Last Admin: 12/01/22 07:44 Dose: Not Given Documented By: SARI Non-Admin Reason: IV Running Vitamin D (Cholecalciferol (Vitamin D3) 25 Mcg Tablet) 50 mcg PO DAILY [facility] Last Admin: 12/01/22 09:23 Dose: Not Given Documented By: SARI Non-Admin Reason: NPO Zinc Sulfate (Zinc Sulfate 220 Mg Capsule) 220 mg PO DAILY [facility] Last Admin: 12/01/22 09:23 Dose: Not Given Documented By: SARI Non-Admin Reason: NPO Labs 12/01/22 06:25 12/01/22 06:25 Labs: Laboratory Results - last 24 hr 12/01/22 12/01/22 06:25 06:25 MCV 77.8 L MCH 26.1 L MCHC 33.5 RDW 15.1 Plt Count 157 L MPV 10.4 Absolute Nucleated RBC 0.000 Nucleated RBC % (auto) 0.0 Anion Gap 10 L Estim Creat Clear Calc 61.1 Estimated GFR 53 Random Glucose 111 Calcium 7.6 L Microbiology Microbiology Results: Microbiology 11/29/22 18:37 Blood Culture - Preliminary Blood - Venous 11/29/22 17:40 Blood Culture - Preliminary Blood - Venous No growth after 24 hours. Assessment and Plan (1) Hydronephrosis: Status: Acute (2) Urinary tract infection: Status: Acute (3) Acute unilateral obstructive uropathy: Status: Acute Plan 67-year-old male with past medical history of stent in the ureter on the right, presents the hospital with weakness, nausea vomiting, chills, as well as urinary symptoms and right flank pain found to have acute UTI and obstructing uropathy # acute unilateral obstructive uropathy with severe hydronephrosis secondary to blockage of stent of ureter severe hydronephrosis on the right, evidence of calcification of ureter stent, seems chronic with no acute pain nonobstructing stones bilaterally urology to do cysto\uretroscopy today IVF # acute sepsis secondary to UTI/obstructing uropathy IV antibiotics follow cultures # BPH Finasteride DVT prophylaxis: SCDs Given patient's sepsis with need for IV antibiotics patient will require overnight inpatient hospital stay further management monitoring Time Spent With Patient Time: Total time managing care of this patient today ____ minutes. Quality Stroke Does the patient have a stroke diagnosis?: No VTE Prior VTE?: No VTE Risk Level:: Medical - moderate - high VTE Device Contraindication: Treatment Not Indicated VTE Drug Contraindication: N/A - Med Ordered
--- NOTE | 2022-12-01 17:52 | MHC.SHP ---
Pre-Procedural Eval Section A Date of Service: 12/01/22 The patient is an INPATIENT: Yes Changes since office visit: No Cold of Flu in the past 2 weeks, No New Medical Problems, No Changes in Medication and No Patient answered all questions The History & Physical has been completed within 30 days and I have reviewed it.: Yes Section B Chief Complaint: Urosepsis Allergies: Allergies Allergy/AdvReac Type Severity Reaction Status Date / Time No Known Allergies Allergy Verified 11/29/22 17:22 Review of Systems Sugical H&P ROS: Negative: Constitution, Cardiovascular, Respiratory, Neurological, Psychiatric, Hem-Onc, Allergic/Immunologic, Gastrointestinal, Genitourinary, Musculoskeletal, Integumentary, Endocrine and Eyes/Ears/Nose/Throat Exam Surgical H&P Exam: Normal: HEENT, Normal: Heart, Normal: Lungs, Normal: Extremities, Normal: Abdomen, Normal: Skin and Normal: Neurological Plan Diagnosis/Plan: Unchanged (Cystoscopy, retrograde right side, ureteroscopy, laser lithotripsy, stent removed) I have reviewed the history and physical and performed a pertinent physical examination on my patient. No changes have occurred unless specified. Time Spent With Patient Time: Total time managing care of this patient today ____ minutes.
[2022-12-01] MEDS: cefTRIAXone sodium 1 GM in 0.9 % Sodium Chloride 50 ML IV (18:26)
--- NOTE | 2022-12-01 19:32 | P.CONAN_ITS ---
HPI - Anesthesia Eval Consult details Narrative: nephrolithiasis, right ureter stone [facility] Active Problems Active Problems: All Active Problems (Updated 12/01/22 @ 08:07 by Rod Phillips MD) Renal calculus, right (Acute) Hydronephrosis (Acute) Blockage of stent of ureter (Acute) Acute unilateral obstructive uropathy (Acute) Urinary tract infection (Acute) Sepsis (Acute) Varicose veins of right lower extremity with inflammation (Acute) BPH w urinary obs/LUTS (Acute) UTI (urinary tract infection), bacterial (Acute) Gross hematuria (Acute) Varicose vein of leg (Acute) Elevated PSA (Acute) Varicose veins of left lower extremity with inflammation (Acute) Past Medical History Medical History BPH (benign prostatic hyperplasia) Detached retina Hernia Ureteral stent present Family History Family History Sister Melanoma Family history of problems with anesthesia: No Surgical History Surgical History History of eye surgery History of prostate surgery History of umbilical hernia repair Hx of varicose vein ligation History of Problems with Anesthesia: No Social History Social History Household Members: Spouse Do you presently have visiting nurse or other home services: No Alcohol intake: never Patient Tobacco Use Status: Former Tobacco user Quit Date: 20 years ago Tobacco use type: Cigarette e-Cigarette/Vaping Use: Former Use Second Hand Smoke Exposure: No service: No Current occupational status: employed Meds Allergies Allergy/AdvReac Type Severity Reaction Status Date / Time No Known Allergies Allergy Verified 11/29/22 17:22 Active Medications: Current Medications Acetaminophen (Acetaminophen 325 Mg Tablet) 650 mg PO Q6H PRN PRN Reason: Pain, Mild (Pain Scale 1-3) Last Admin: 11/30/22 15:54 Dose: 650 mg Ascorbic Acid (Ascorbic Acid 500 Mg Tablet) 500 mg PO DAILY [facility] Last Admin: 12/01/22 09:23 Dose: Not Given Docusate Sodium (Docusate Sodium 100 Mg Capsule) 100 mg PO DAILY PRN PRN Reason: Constipation Finasteride (Finasteride 5 Mg Tablet) 5 mg PO DAILY [facility] Last Admin: 12/01/22 09:22 Dose: 5 mg Ceftriaxone Sodium 1 gm/ (Sodium Chloride) 50 mls @ 100 mls/hr IV Q24H [facility] Last Admin: 12/01/22 18:26 Dose: 100 mls/hr Lactated Ringer's (Lr) 1,000 mls @ 100 mls/hr IVCONT .Q10H [facility] Last Admin: 12/01/22 10:18 Dose: 100 mls/hr Multivitamins/Vitamin C (Multivitamin Tablet) 1 tab PO DAILY [facility] Last Admin: 12/01/22 09:23 Dose: Not Given Ondansetron HCl (Ondansetron Hcl 4 Mg/2 Ml Vial) 4 mg IVPUSH Q8H PRN PRN Reason: Nausea and Vomiting Pharmacy Consult (Consult Rx Perform Med Rec) 1 each MISCELLANE ONCE PRN PRN Reason: Consult order Sodium Chloride (0.9 % Sodium Chloride Flush 3 Ml Syringe) 3 ml IVFLUSH QSHIFT [facility] Last Admin: 12/01/22 15:05 Dose: Not Given Vitamin D (Cholecalciferol (Vitamin D3) 25 Mcg Tablet) 50 mcg PO DAILY [facility] Last Admin: 12/01/22 09:23 Dose: Not Given Zinc Sulfate (Zinc Sulfate 220 Mg Capsule) 220 mg PO DAILY [facility] Last Admin: 12/01/22 09:23 Dose: Not Given Home Medications Medication Instructions Recorded Confirmed Last Taken Type ascorbic acid (vitamin C) 500 mg 500 mg PO DAILY 11/29/22 11/29/22 Unknown History tablet (Vitamin C) cholecalciferol (vitamin D3) 50 50 mcg PO DAILY 11/29/22 11/29/22 Unknown History mcg (2,000 unit) tablet (Vitamin D3) multivitamin 1 tab PO DAILY 11/29/22 11/29/22 Unknown History zinc acetate 50 mg (zinc) capsule 50 mg PO DAILY 11/29/22 11/29/22 Unknown H istory Exam Exam Date and Time: December 01, [id number] Height,Weight and Vital Signs: Height 6 ft 1 in Weight 83.5 kg Last Vital Signs Temp 98.4 F 12/01/22 08:00 Pulse 67 12/01/22 08:00 Resp 17 12/01/22 08:00 BP 132/75 12/01/22 08:00 Pulse Ox 94 12/01/22 08:00 O2 Del Method Room Air 12/01/22 08:00 O2 Flow Rate 2 11/30/22 15:49 Pertinent Lab Results Pertinent Lab Results: Laboratory Tests 11/29/22 11/29/22 11/29/22 17:40 17:40 17:40 WBC 14.8 H RBC 4.89 Hgb 13.1 L Hct 38.7 L MCV 79.1 L MCH 26.8 L MCHC 33.9 RDW 14.9 Plt Count 163 MPV 10.3 Immature Gran % (Auto) 0.7 H Neut % (Auto) 89.1 H Lymph % (Auto) 4.3 L Tyrrell % (Auto) 5.7 Eos % (Auto) 0.0 Baso % (Auto) 0.2 Lymph # (Auto) 0.6 L Tyrrell # (Auto) 0.9 Eos # (Auto) 0.0 Baso # (Auto) 0.0 Abs Immat Gran (auto) 0.10 H Absolute Neuts (auto) 13.2 H Absolute Nucleated RBC 0.000 Nucleated RBC % (auto) 0.0 Sodium 136 Potassium 4.6 Chloride 102 Carbon Dioxide 23 Anion Gap 16 BUN 52 H Creatinine 1.95 H Estim Creat Clear Calc 42.6 Estimated GFR 35 Random Glucose 135 H Lactic Acid 3.0 H* Lactic Acid F/U @ 2Hr Calcium 8.2 L D Magnesium 2.2 Total Bilirubin 1.0 AST 41 H ALT 59 H Alkaline Phosphatase 128 H Troponin I High Sens Total Protein 5.8 L Albumin 3.2 L Urine Color Urine Appearance Urine pH Ur Specific [place] Urine Protein Urine Glucose (UA) Urine Ketones Urine Blood Urine Nitrite Ur Leukocyte Esterase Urine RBC Urine WBC Ur Squamous Epith Cells Urine Bacteria Hyaline Casts COVID-19 (DEANNA) COVID-19 Clin Com 11/29/22 11/29/22 11/29/22 17:40 19:33 20:23 WBC RBC Hgb Hct MCV MCH MCHC RDW Plt Count MPV Immature Gran % (Auto) Neut % (Auto) Lymph % (Auto) Tyrrell % (Auto) Eos % (Auto) Baso % (Auto) Lymph # (Auto) Tyrrell # (Auto) Eos # (Auto) Baso # (Auto) Abs Immat Gran (auto) Absolute Neuts (auto) Absolute Nucleated RBC Nucleated RBC % (auto) Sodium Potassium Chloride Carbon Dioxide Anion Gap BUN Creatinine Estim Creat Clear Calc Estimated GFR Random Glucose Lactic Acid 2.0 Lactic Acid F/U @ 2Hr 1.2 Calcium Magnesium Total Bilirubin AST ALT Alkaline Phosphatase Troponin I High Sens 11.0 Total Protein Albumin Urine Color Urine Appearance Urine pH Ur Specific [place] Urine Protein Urine Glucose (UA) Urine Ketones Urine Blood Urine Nitrite Ur Leukocyte Esterase Urine RBC Urine WBC Ur Squamous Epith Cells Urine Bacteria Hyaline Casts COVID-19 (DEANNA) COVID-19 Clin Com 11/29/22 11/30/22 11/30/22 22:59 00:14 05:36 WBC 13.0 H RBC 4.62 Hgb 12.3 L Hct 36.6 L MCV 79.2 L MCH 26.6 L MCHC 33.6 RDW 15.0 Plt Count 151 L MPV 10.2 Immature Gran % (Auto) 3.5 H Neut % (Auto) 82.4 H Lymph % (Auto) 4.1 L Tyrrell % (Auto) 8.4 Eos % (Auto) 1.3 Baso % (Auto) 0.3 Lymph # (Auto) 0.5 L Tyrrell # (Auto) 1.1 Eos # (Auto) 0.2 Baso # (Auto) 0.0 Abs Immat Gran (auto) 0.46 H Absolute Neuts (auto) 10.7 H Absolute Nucleated RBC 0.000 Nucleated RBC % (auto) 0.0 Sodium Potassium Chloride Carbon Dioxide Anion Gap BUN Creatinine Estim Creat Clear Calc Estimated GFR Random Glucose Lactic Acid Lactic Acid F/U @ 2Hr Calcium Magnesium Total Bilirubin AST ALT Alkaline Phosphatase Troponin I High Sens Total Protein Albumin Urine Color Yellow Urine Appearance Cloudy Urine pH 6.5 Ur Specific [place] 1.020 Urine Protein 100 (2+) H Urine Glucose (UA) Negative Urine Ketones Negative Urine Blood Moderate (2+) H Urine Nitrite Positive H Ur Leukocyte Esterase Large (3+) H Urine RBC 3-5 H Urine WBC >50 H Ur Squamous Epith Cells 0-2 Urine Bacteria None Seen Hyaline Casts 3-5 COVID-19 (DEANNA) Negative COVID-19 Clin Com See Note 11/30/22 12/01/22 12/01/22 05:36 06:25 06:25 WBC 11.2 H RBC 4.64 Hgb 12.1 L Hct 36.1 L MCV 77.8 L MCH 26.1 L MCHC 33.5 RDW 15.1 Plt Count 157 L MPV 10.4 Immature Gran % (Auto) Neut % (Auto) Lymph % (Auto) Tyrrell % (Auto) Eos % (Auto) Baso % (Auto) Lymph # (Auto) Tyrrell # (Auto) Eos # (Auto) Baso # (Auto) Abs Immat Gran (auto) Absolute Neuts (auto) Absolute Nucleated RBC 0.000 Nucleated RBC % (auto) 0.0 Sodium 136 139 Potassium 3.6 D 3.8 Chloride 107 109 H Carbon Dioxide 20 L 24 Anion Gap 13 10 L BUN 47 H 35 H Creatinine 1.76 H 1.36 Estim Creat Clear Calc 47.2 61.1 Estimated GFR 39 53 Random Glucose 113 111 Lactic Acid Lactic Acid F/U @ 2Hr Calcium 7.9 L 7.6 L Magnesium Total Bilirubin AST ALT Alkaline Phosphatase Troponin I High Sens Total Protein Albumin Urine Color Urine Appearance Urine pH Ur Specific [place] Urine Protein Urine Glucose (UA) Urine Ketones Urine Blood Urine Nitrite Ur Leukocyte Esterase Urine RBC Urine WBC Ur Squamous Epith Cells Urine Bacteria Hyaline Casts COVID-19 (DEANNA) COVID-19 Clin Com Airway Mallampati Class: II TM Dist: >3cm Loose/Missing/Broken Teeth: No Heart: RRR Lungs: CTA Assessment and Plan Assessment Anesthesia Assessment: Anesthesia Plan Discussed and Chart Reviewed Final Anesthetic Review Family History of Problems with Anesthesia: No History of Problems with Anesthesia: No NPO: Yes ASA Class: II Final Preanesthetic Review: No Changes in Pt Med Stat, Meds/Allgs Chart Reviewed, Consent Obtained/Reviewed and Anes Risks/Benef Reviewed Patient Risk: Intermediate Procedure Risk: Low Anesthetic Plan Anesthetic Plan: GA Disposition: Standard PACU
--- NOTE | 2022-12-01 22:00 | P.OP_ITS ---
Operative Note Operative Note Date of Service: 12/01/22 Narrative: PreOperative Diagnosis: Retained ureteric stent with calcification on bladder and kidney, hydronephrosis Post Operative Diagnosis: Retained right-sided ureteric stent with calcificat ion on bladder and kidney level, hydronephrosis Procedure: Cystoscopy, extensive laser lithotripsy on bladder stone surrounding retained stent, retrograde right, right ureteroscopy with laser lithotripsy, right stent placement - modifier 22 extended Surgeon: Dr Rod Phillips Anesthesia: General Indications for procedure: Presented with 2 day history of right flank pain and weakness. Had prior laser prostate procedure performed in May with right stent placement. Stent had remained for renal function. Appears on imaging that stent had become calcified. Procedure: After informed consent was verified the patient was brought to the operating room and placed in a supine position. Anesthesia was administered per protocol. The patient was prepped and draped in a sterile fashion. Safety pause time-out was performed. Antibiotics being given. Patient was placed in modified dorsal lithotomy position. Cystoscopy performed. Extensive stone proximally 1 in x 4 in with seen across the retained stent. Using a 550 end fire laser the stone was broken throughout the length of the stent. This took approximately 60 minutes. 100% longer than typical. Stone fragments were removed from bladder. Retrograde examination performed on right side. Debris noted along stent pathwa y. Sensor guidewire placed up to level the renal pelvis. Rigid ureteroscopy performed alongside the wire. There was some stone that was encountered that was knocked from the stent. There was some stone that was lasered using the 550 laser. We reached the limit of the flexible scope. Using a disposable ureteral scope were able to go over the Sensor guidewire into the level the renal pelvis. Hydronephrosis was present. There was significant debris with question of prolonged response. The renal pelvises drain. We were then able to target the stone using the 550 fiber worked on the stone for approximately 55 minutes. At this point gen stone a been removed. Stent in place had been freed from a lot of the surrounding stone. Decision was made to place stent which will be left in place for a week and then ureteroscopy will be repeated once some of the inflammation has resolved. The flexible scope was removed over a Sensor guidewire. The stent in the bladder wall remained. A 2nd 6 Telugu by 28 cm double-J stent was placed over the wire up to the level renal pelvis and curl seen within the bladder. The bladder was emptied. He tolerated the procedure, was extubated in operating room transferred in stable condition to the recovery area. Will remain on antibiotics at home for the next week and sometime within the next 2 weeks secondary procedure will be scheduled. Pathology stones Drains stent as described above Pathology: [] Drains: []
[2022-12-01] MEDS: 0.9 % Sodium Chloride Flush 3 ML SYRINGE IVFLUSH (23:03)
[2022-12-01] MEDS: Phenazopyridine HCL 100 MG TABLET PO (23:28)
[2022-12-02 03:34] VITALS: BP 125/81; PULSE 65; RESP 18; TEMP 36.2; O2SAT 96
[2022-12-02 06:17] LABS: Hematocrit 43.1 % (42.0-52.0); Hemoglobin 13.9 g/dl (14.0-18.0); Mean Corpuscular HGB Conc 32.3 g/dl (31.0-36.0); Mean Corpuscular Volume 80.7 fL (80.0-98.0); Mean Platelet Volume 10.2 fL (9.4-12.4); Platelet Count 224 X10*3/uL (160-400); Red Blood Count 5.34 X10*6/uL (4.60-5.80); Red Cell Distribution Width 15.4 % (11.0-16.0); White Blood Count 11.8 X10*3/uL (4.8-10.8)
[2022-12-02 06:34] LABS: Anion Gap 11 (12-20); Blood Urea Nitrogen 33 mg/dL (9-16); Carbon Dioxide 25 mmol/L (22-29); Chloride 106 mmol/L (96-108); Creatinine Clr Calc Pharmacy 52.6; Estimated Glomerular Filt Rate 44; Glucose Random 122 mg/dL (60-115); Potassium 4.4 mmol/L (3.3-5.1); Sodium 138 mmol/L (135-145)
--- NOTE | 2022-12-02 07:31 | P.CDIM_ITS ---
PROVIDER RESPONSE TEXT: To clarify, the appropriate diagnosis supported by the clinical indicators: Labs indicate a diagnosis of (please specify) QUERY TEXT: PHYSICIAN'S DOCUMENTATION REQUEST Date of Query: 12/01/2022 10:41 AM EDT Patient Name: Sancho Padilla Admit Date: 11/30/2022 Dear Jill Moreau, A review of the medical record indicates additional documentation may be needed. Please review below and update the documentation accordingly. Clinical Indicators: LAB FINDINGS: calcium 7.6 L Is there a diagnosis that correlates with these lab findings: Hypocalcemia or other etiology of lab findings Labs indicate a diagnosis of (please specify) Other Unable to determine Other (explain) Clinically unable to determine (explain) Thank you, Josselin Desouza, CCS, CDIS Use of terms such as suspected, likely, concern for, or probable (associated with a specific diagnosi s that is being evaluated, monitored, or treated as if it exists) are acceptable and can be coded in the inpatient se tting, when documented at the time of discharge. Please use your independent medical judgment in providing your response. THIS QUERY IS PART OF THE PERMANENT MEDICAL RECORD
[2022-12-02 08:00] VITALS: BP 132/81; PULSE 60; RESP 18; TEMP 36.7; O2SAT 96
[2022-12-02] MEDS: Multivitamin TABLET 1 TAB PO (08:24)
[2022-12-02] MEDS: Ascorbic Acid 500 MG TABLET PO (08:24)
[2022-12-02] MEDS: Cholecalciferol (Vitamin D3) 25 MCG TABLET 50 MCG PO (08:24)
[2022-12-02] MEDS: Finasteride 5 MG TABLET PO (08:25)
[2022-12-02] MEDS: Zinc Sulfate 220 MG CAPSULE PO (08:25)
[2022-12-02 11:29] VITALS: BP 132/74; PULSE 78; RESP 18; TEMP 36.8; O2SAT 96
--- NOTE | 2022-12-02 11:55 | HO.PM.IMPN ---
Subjective Subjective Date of Service: 12/02/22 Interval History: Feels comfortable after the procedure No more chills episodes last 24 hours new double J placed in right ureter no reported overnight events Review of Systems Review of Systems: Yes all other systems are reviewed and are negative Physical Exam Vital Signs: Vital Signs: Last Vital Signs Temp 98.2 F 12/02/22 11:29 Pulse 78 12/02/22 11:29 Resp 18 12/02/22 11:29 BP 132/74 12/02/22 11:29 Pulse Ox 96 12/02/22 11:29 O2 Del Method Room Air 12/02/22 11:29 O2 Flow Rate 2 12/01/22 23:02 BMI result Body Mass Index 24.3 Const: Other: Constitutional : Awake, interactive, not in distress Neck : Normal inspection, Supple Cardiovascular : RRR, no JVP, no lower extremity edema Respiratory : good bilateral air entry, no crackles, wheezes or rhonchi Gastrointestinal: soft, lax, Normal bowel sounds, Non tender Skin : Warm, Dry Neurological : Alert & oriented x3, No focal deficit Objective Data Active Medications Acetaminophen (Acetaminophen 325 Mg Tablet) 650 mg PO Q6H PRN PRN Reason: Pain, Mild (Pain Scale 1-3) Last Admin: 11/30/22 15:54 Dose: 650 mg Documented By: ALVARO Ascorbic Acid (Ascorbic Acid 500 Mg Tablet) 500 mg PO DAILY [facility] Last Admin: 12/02/22 08:24 Dose: 500 mg Documented By: CLAUDIA Docusate Sodium (Docusate Sodium 100 Mg Capsule) 100 mg PO DAILY PRN PRN Reason: Constipation Fentanyl (Fentanyl Citrate/Pf 100 Mcg/2 Ml Vial) 50 mcg IVPUSH Q5M PRN; Protocol PRN Reason: Pain, Severe (Pain Scale 7-10) Finasteride (Finasteride 5 Mg Tablet) 5 mg PO DAILY [facility] Last Admin: 12/02/22 08:25 Dose: 5 mg Documented By: CLAUDIA Hydromorphone HCl (Hydromorphone Hcl 0.5 Mg/0.5 Ml Syringe) 0.5 mg IVPUSH Q5M PRN; Protocol PRN Reason: Pain, Severe (Pain Scale 7-10) Ceftriaxone Sodium 1 gm/ (Sodium Chloride) 50 mls @ 100 mls/hr IV Q24H COUNT [facility]CLUDES [facility] Last Infusion: 12/01/22 23:41 Dose: 0 mls/hr Documented By: RUSSEL Promethazine HCl 12.5 mg/ (Sodium Chloride) 50.5 mls @ 202 mls/hr IV ONCE PRN PRN Reason: Nausea and Vomiting Multivitamins/Vitamin C (Multivitamin Tablet) 1 tab PO DAILY [facility] Last Admin: 12/02/22 08:24 Dose: 1 tab Documented By: CLAUDIA Ondansetron HCl (Ondansetron Hcl 4 Mg/2 Ml Vial) 4 mg IVPUSH Q8H PRN PRN Reason: Nausea and Vomiting Pharmacy Consult (Consult Rx Perform Med Rec) 1 each MISCELLANE ONCE PRN PRN Reason: Consult order Sodium Chloride (0.9 % Sodium Chloride Flush 3 Ml Syringe) 3 ml IVFLUSH QSHIFT COUNT [facility]CLUDES [facility] Last Admin: 12/02/22 08:29 Dose: Not Given Documented By: CLAUDIA Non-Admin Reason: IV Running Tramadol HCl (Tramadol Hcl 50 Mg Tablet) 50 mg PO Q6H PRN PRN Reason: Pain, Moderate (Pain Scale 4-6 Vitamin D (Cholecalciferol (Vitamin D3) 25 Mcg Tablet) 50 mcg PO DAILY [facility] Last Admin: 12/02/22 08:24 Dose: 50 mcg Documented By: CLAUDIA Zinc Sulfate (Zinc Sulfate 220 Mg Capsule) 220 mg PO DAILY [facility] Last Admin: 12/02/22 08:25 Dose: 220 mg Documented By: CLAUDIA Labs 12/02/22 06:08 12/02/22 06:08 Labs: Laboratory Results - last 24 hr 12/02/22 12/02/22 06:08 06:08 MCV 80.7 MCH 26.0 L MCHC 32.3 RDW 15.4 Plt Count 224 D MPV 10.2 Absolute Nucleated RBC 0.000 Nucleated RBC % (auto) 0.0 Anion Gap 11 L Estim Creat Clear Calc 52.6 Estimated GFR 44 Random Glucose 122 H Calcium 8.0 L Microbiology Microbiology Results: Microbiology 12/01/22 21:16 Gram Stain - Final Kidney Right Routine Culture - Preliminary Culture in progress. 11/29/22 17:40 Blood Culture - Preliminary Blood - Venous No growth after 48 hours. 11/29/22 18:37 Blood Culture - Preliminary Blood - Venous No growth after 24 hours. Assessment and Plan (1) Renal calculus, right: Status: Acute (2) Hydronephrosis: Status: Acute (3) Acute unilateral obstructive uropathy: Status: Acute (4) Acute kidney injury: Status: Acute Plan 67-year-old male with past medical history of stent in the ureter on the right, presents the hospital with weakness, nausea vomiting, chills, as well as urinary symptoms and right flank pain found to have acute UTI and obstructing uropathy # acute unilateral obstructive uropathy with severe hydronephrosis and CLAUS secondary to blockage of stent of ureter severe hydronephrosis on the right, evidence of calcification of ureter stent, seems chronic with no acute pain nonobstructing stones bilaterally urology did cysto\uretroscopy with removing of stones and placement of new double J Cr improved but not back to normal baseline yet continue IVF follow BMP # acute sepsis secondary to UTI/obstructing uropathy IV antibiotics follow cultures # BPH Finasteride DVT prophylaxis: SCDs Given patient's sepsis with need for IV antibiotics patient will require overnight inpatient hospital stay further management monitoring Time Spent With Patient Time: Total time managing care of this patient today ____ minutes. Quality Stroke Does the patient have a stroke diagnosis?: No VTE Prior VTE?: No VTE Risk Level:: Medical - moderate - high VTE Device Contraindication: Treatment Not Indicated VTE Drug Contraindication: N/A - Med Ordered
--- NOTE | 2022-12-02 12:02 | MHC.CM.PN ---
PER MD ROUNDS, PLAN IS MONITOR TODAY AND PLAN FOR DC HOME THURSDAY
--- NOTE | 2022-12-02 13:11 | HO.POSTANES ---
Post Anesthesia Evaluation Post Anesthesia Evaluation Vital Signs: Vital Signs Temp Pulse Resp BP Pulse Ox O2 Del Method 12/02/22 11:29 98.2 F 78 18 132/74 96 Room Air 12/02/22 08:00 98.1 F 60 18 132/81 96 Room Air 12/02/22 03:34 97.2 F 65 18 125/81 96 Room Air Anesthesia: General Mental Status: Awake Pain Control: Satisfactory Nausea/Vomiting: None Hydration: Adequate Anesthesia-Related Issues: No Anes. Related Issues
[2022-12-02 15:19] VITALS: BP 120/67; PULSE 77; RESP 20; TEMP 36.6; O2SAT 92
[2022-12-02] MEDS: 0.9 % Sodium Chloride Flush 3 ML SYRINGE IVFLUSH ×2 (15:54→21:04)
[2022-12-02] MEDS: cefTRIAXone sodium 1 GM in 0.9 % Sodium Chloride 50 ML IV (17:25)
--- NOTE | 2022-12-02 17:49 | PM.UROPN ---
Subjective Subjective Date of Service: 12/02/22 Interval history: Postop day 1 - bladder stone and renal stone Significant improvement in voiding Minor blood this morning that has resolved Is feeling better White count 11.8 Continue with IV antibiotics till culture result back from aspiration performed on kidney yesterday Hopefully was cell count will continue to fall Continue to encourage oral fluids Physical Exam Vital Signs: Vital Signs: Last Vital Signs Temp 97.8 F 12/02/22 15:19 Pulse 77 12/02/22 15:19 Resp 20 12/02/22 15:19 BP 120/67 12/02/22 15:19 Pulse Ox 92 12/02/22 15:19 O2 Del Method Room Air 12/02/22 15:19 O2 Flow Rate 2 12/01/22 23:02 BMI result Body Mass Index 24.3 Const: General: cooperative, healthy appearing, comfortable and no acute distress Orientation/consciousness: patient oriented x3 HEENT: Face and sinus: Yes normal facial exam Mouth: moist mucous membranes Neck: Neck: Yes normal visual inspection, Yes full ROM and Yes trachea midline Chest: Chest palpation & inspection: normal inspection of the chest Resp: Effort & Inspection: normal respiratory effort, able to speak in complete sentences and no respiratory distress GI: Inspection: Yes normal to inspection Back/Spine/Pelvis: Cervical Spine: normal cervical lordosis Thoracic/Lumbar Spine: thoracic and lumbar spine normal to inspection Skin: General skin exam: no rashes or lesions noted Neuro: General: patient oriented x3, tone normal and moves all extremities Extrem: General: Yes normal to inspection and Yes capillary refill normal Urology Results Labs 12/02/22 06:08 12/02/22 06:08 Labs: Laboratory Results - last 24 hr 12/02/22 12/02/22 06:08 06:08 WBC 11.8 H RBC 5.34 Hgb 13.9 L Hct 43.1 MCV 80.7 MCH 26.0 L MCHC 32.3 RDW 15.4 Plt Count 224 D MPV 10.2 Absolute Nucleated RBC 0.000 Nucleated RBC % (auto) 0.0 Sodium 138 Potassium 4.4 Chloride 106 Carbon Dioxide 25 Anion Gap 11 L BUN 33 H Creatinine 1.58 H Estim Creat Clear Calc 52.6 Estimated GFR 44 Random Glucose 122 H Calcium 8.0 L Progress Note: A&P Assessment and plan (1) Renal calculus, right: Status: Acute (2) Hydronephrosis: Status: Acute (3) Bladder stones: Status: Acute Plan Continue oral hydration Pending kidney aspiration culture Time Spent With Patient Time: Total time managing care of this patient today ____ minutes. Progress Note: Quality Stroke Does the patient have a stroke diagnosis?: No
[2022-12-02 19:22] VITALS: BP 138/73; PULSE 76; RESP 18; TEMP 36.8; O2SAT 97
[2022-12-02 23:56] VITALS: BP 121/73; PULSE 74; RESP 18; TEMP 37.4; O2SAT 93
[2022-12-03 03:55] VITALS: BP 128/76; PULSE 70; RESP 18; TEMP 37.5; O2SAT 95
[2022-12-03 06:39] LABS: Anion Gap 12 (12-20); Blood Urea Nitrogen 24 mg/dL (9-16); Calcium 7.8 mg/dL (8.4-10.2); Carbon Dioxide 24 mmol/L (22-29); Chloride 106 mmol/L (96-108); Estimated Glomerular Filt Rate 55; Glucose Random 91 mg/dL (60-115); Potassium 4.2 mmol/L (3.3-5.1); Sodium 138 mmol/L (135-145)
[2022-12-03 07:15] VITALS: BP 136/73; PULSE 71; RESP 18; TEMP 36.6; O2SAT 94
[2022-12-03] MEDS: 0.9 % Sodium Chloride Flush 3 ML SYRINGE IVFLUSH ×2 (08:28→15:32)
[2022-12-03] MEDS: Finasteride 5 MG TABLET PO (08:38)
[2022-12-03] MEDS: Ascorbic Acid 500 MG TABLET PO (08:38)
[2022-12-03] MEDS: Zinc Sulfate 220 MG CAPSULE PO (08:38)
[2022-12-03] MEDS: Cholecalciferol (Vitamin D3) 25 MCG TABLET 50 MCG PO (08:38)
[2022-12-03] MEDS: Multivitamin TABLET 1 TAB PO (08:38)
--- NOTE | 2022-12-03 11:23 | P.PNIM_ITS ---
Subjective Subjective Date of Service: 12/03/22 Interval History: feeling better Physical Exam Vital Signs: Vital Signs: Last Vital Signs Temp 98 F 12/03/22 07:15 Pulse 71 12/03/22 07:15 Resp 18 12/03/22 07:15 BP 136/73 12/03/22 07:15 Pulse Ox 94 12/03/22 07:15 O2 Del Method Room Air 12/03/22 07:15 O2 Flow Rate 2 12/01/22 23:02 BMI result Body Mass Index 24.3 General: AO X 3, no acute distress Resp: CTA bilateral, no accessory muscles used CVS: S1,S2,RRR GI: soft, non tender, non distended Neuro: motor grossly intact, alert Psych: appropriate affect, appropriate insight Objective Data Active Medications Acetaminophen (Acetaminophen 325 Mg Tablet) 650 mg PO Q6H PRN PRN Reason: Pain, Mild (Pain Scale 1-3) Last Admin: 11/30/22 15:54 Dose: 650 mg Documented By: ALVARO Ascorbic Acid (Ascorbic Acid 500 Mg Tablet) 500 mg PO DAILY [facility] Last Admin: 12/03/22 08:38 Dose: 500 mg Documented By: INI Docusate Sodium (Docusate Sodium 100 Mg Capsule) 100 mg PO DAILY PRN PRN Reason: Constipation Fentanyl (Fentanyl Citrate/Pf 100 Mcg/2 Ml Vial) 50 mcg IVPUSH Q5M PRN; Protocol PRN Reason: Pain, Severe (Pain Scale 7-10) Finasteride (Finasteride 5 Mg Tablet) 5 mg PO DAILY [facility] Last Admin: 12/03/22 08:38 Dose: 5 mg Documented By: NII Hydromorphone HCl (Hydromorphone Hcl 0.5 Mg/0.5 Ml Syringe) 0.5 mg IVPUSH Q5M PRN; Protocol PRN Reason: Pain, Severe (Pain Scale 7-10) Ceftriaxone Sodium 1 gm/ (Sodium Chloride) 50 mls @ 100 mls/hr IV Q24H [facility] Last Infusion: 12/02/22 18:01 Dose: 0 mls/hr Documented By: NII Promethazine HCl 12.5 mg/ (Sodium Chloride) 50.5 mls @ 202 mls/hr IV ONCE PRN PRN Reason: Nausea and Vomiting Multivitamins/Vitamin C (Multivitamin Tablet) 1 tab PO DAILY [facility] Last Admin: 12/03/22 08:38 Dose: 1 tab Documented By: NII Ondansetron HCl (Ondansetron Hcl 4 Mg/2 Ml Vial) 4 mg IVPUSH Q8H PRN PRN Reason: Nausea and Vomiting Pharmacy Consult (Consult Rx Perform Med Rec) 1 each MISCELLANE ONCE PRN PRN Reason: Consult order Sodium Chloride (0.9 % Sodium Chloride Flush 3 Ml Syringe) 3 ml IVFLUSH QSHIFT [facility] Last Admin: 12/03/22 08:28 Dose: 3 ml Documented By: NII Tramadol HCl (Tramadol Hcl 50 Mg Tablet) 50 mg PO Q6H PRN PRN Reason: Pain, Moderate (Pain Scale 4-6 Vitamin D (Cholecalciferol (Vitamin D3) 25 Mcg Tablet) 50 mcg PO DAILY [facility] Last Admin: 12/03/22 08:38 Dose: 50 mcg Documented By: NII Zinc Sulfate (Zinc Sulfate 220 Mg Capsule) 220 mg PO DAILY [facility] Last Admin: 12/03/22 08:38 Dose: 220 mg Documented By: NII Labs 12/02/22 06:08 12/03/22 05:35 Labs: Laboratory Results - last 24 hr 12/03/22 05:35 Anion Gap 12 Estim Creat Clear Calc 64.0 Estimated GFR 55 Random Glucose 91 Calcium 7.8 L Microbiology Microbiology Results: Microbiology 11/29/22 18:37 Blood Culture - Final Blood - Venous Staphylococcus aureus 12/01/22 21:16 Gram Stain - Final Kidney Right Routine Culture - Preliminary Enterococcus/Streptococcus sp Assessment and Plan (1) Renal calculus, right: Status: Acute (2) Hydronephrosis: Status: Acute (3) Acute unilateral obstructive uropathy: Status: Acute (4) Acute kidney injury: Status: Acute Plan 67-year-old male with past medical history of stent in the ureter on the right, presented to the hospital with weakness, nausea vomiting, chills, as well as urinary symptoms and right flank pain found to have acute UTI and obstructing uropathy Sepsis and acute kidney injury due to acute right-sided hydronephrosis with obstructing stone rajendra resolved Status post stent exchange Kidney culture growing Enterococcus/strep species Blood culture growing MSSA Will change antibiotics to Ancef Id eval Follow-up repeat cultures BPH Finasteride DVT prophylaxis: lovenox full code reason for continued hospitalization: still with bacteremia Time Spent With Patient Time: Total time managing care of this patient today ____ minutes. Quality Stroke Does the patient have a stroke diagnosis?: No VTE Prior VTE?: No VTE Risk Level:: Medical - moderate - high VTE Device Contraindication: Treatment Not Indicated VTE Drug Contraindication: N/A - Med Ordered
[2022-12-03 11:24] VITALS: BP 136/74; PULSE 77; RESP 18; TEMP 36.6; O2SAT 94
[2022-12-03] MEDS: Enoxaparin Sodium 40 MG/0.4 ML SYRINGE SUBCUT (12:27)
[2022-12-03] MEDS: ceFAZolin Sodium/Dextrose,Iso 2 GM/50 ML PIGGYBACK IV ×2 (12:27→20:30)
--- NOTE | 2022-12-03 15:28 | MHC.CM.PN ---
Addendum entered by Fifi Llanes 12/09/22 16:44: NA notified CM that they have declined to accept the patient. Notification this afternoon 4pm. The patient insists on going home this evening after his Line placement and infusion. He has family obligations and stated that he is absolutely leaving this evening. The [facility] will perform the infusion tomorrow. She will provide home infusion education as well. The patient has received initial IV ABX infusion education. He will be competent to perform the IV ABX infusion independently. The patient is presently in IR for line insertion. He is aware that he will miss scheduled doses of the ABX leaving prior to securing VNA services. Patient is aware of the risks, and he understands. Addendum entered by Fifi Llanes 12/09/22 15:47: Jean Schulz has met with patient. Plan is to DC this evening. This afternoon a message was received from [facility]. They declined to accept patient due to new MD appointment 02/13. The patient was seen in the office by another provider prior to this admit. Jean Puentes to work with [facility] animal husbandry teacher. DP DC this evening with [facility] home infusion and [facility]. Patient has arranged for transportation home. Addendum entered by Fifi Llanes 12/09/22 14:27: Midline insertion is pending. Jean Schulz is scheduled to see pt this afternoon. Original Note: Patient may require LT IV ABX. Blood cultures are pending. DP home with LT IV ABX via family transport. Referrals have been sent to pt preference for home services. CM will follow.
[2022-12-03] MEDS: Linezolid 600 MG TABLET PO (15:32)
[2022-12-03 15:37] VITALS: BP 140/74; PULSE 76; RESP 20; TEMP 36.5; O2SAT 98
--- NOTE | 2022-12-03 15:45 | W.PM.IDCN ---
History of Present Illness Data of Consult Service Date: 12/03/22 Requesting physician: Michael Jc Primary Care Provider: Clyde Bruner [facility]- HPI Reason for consult: MSSA bacteremia,urine enterococcus He presents with nausea,weakness,episode of hematuria and temperature to 101 for a day. He has blood culture one 11/29 shows MSSA He also was seen by [facility] and culture done,renal and bladder stone. He has been feeling better. Review of Systems Review of Systems: Yes all other systems are reviewed and are negative [facility] Past Medical History Medical History (Updated 12/03/22 @ 15:49 by Aracely Pedersen MD) BPH (benign prostatic hyperplasia) Detached retina Hernia MSSA bacteremia Ureteral stent present Family History Family History Sister Melanoma Family history: reviewed and not pertinent Surgical History Surgical History History of eye surgery History of prostate surgery History of umbilical hernia repair Hx of varicose vein ligation Social History Social History Household Members: Spouse Do you presently have visiting nurse or other home services: No Alcohol intake: never Patient Tobacco Use Status: Former Tobacco user Quit Date: 20 years ago Tobacco use type: Cigarette Smoked in Last 30 Days: No e-Cigarette/Vaping Use: Former Use Patient Interested in Nicotine Replacement: No Patient Given Instructions on How to Stop Smoking: No Second Hand Smoke Exposure: No Use of substances other than those prescribed or required for medical reasons: No Currently Displaying Signs/Symptoms of Drug Intoxication Withdrawal: No Any prior treatment program specific to substance use: No Have you been hit, kicked, punched, or otherwise hurt by someone within the past year? If so, by whom?: No Do you feel safe in your current relationship?: Yes Is there a partner from a previous relationship who is making you feel unsafe now?: No Are you made to feel afraid or neglected: No Advance Directives: No Advance Directives Information Provided: No Do you have thoughts of harming others: None Do you have a plan to hurt others: No Plan Recently lost weight without trying: No Eating poorly because of decreased appetite: No Nutrition Risks: No Nutritional Risk Poor oral hygiene: No service: No Current occupational status: employed Meds Allergies Allergy/AdvReac Type Severity Reaction Status Date / Time No Known Allergies Allergy Verified 11/29/22 17:22 Active Medications: Current Medications Acetaminophen (Acetaminophen 325 Mg Tablet) 650 mg PO Q6H PRN PRN Reason: Pain, Mild (Pain Scale 1-3) Last Admin: 11/30/22 15:54 Dose: 650 mg Ascorbic Acid (Ascorbic Acid 500 Mg Tablet) 500 mg PO DAILY [facility] Last Admin: 12/03/22 08:38 Dose: 500 mg Docusate Sodium (Docusate Sodium 100 Mg Capsule) 100 mg PO DAILY PRN PRN Reason: Constipation Enoxaparin Sodium (Enoxaparin Sodium 40 Mg/0.4 Ml Syringe) 40 mg SUBCUT Q24H [facility] Last Admin: 12/03/22 12:27 Dose: 40 mg Fentanyl (Fentanyl Citrate/Pf 100 Mcg/2 Ml Vial) 50 mcg IVPUSH Q5M PRN; Protocol PRN Reason: Pain, Severe (Pain Scale 7-10) Finasteride (Finasteride 5 Mg Tablet) 5 mg PO DAILY [facility] Last Admin: 12/03/22 08:38 Dose: 5 mg Hydromorphone HCl (Hydromorphone Hcl 0.5 Mg/0.5 Ml Syringe) 0.5 mg IVPUSH Q5M PRN; Protocol PRN Reason: Pain, Severe (Pain Scale 7-10) Promethazine HCl 12.5 mg/ (Sodium Chloride) 50.5 mls @ 202 mls/hr IV ONCE PRN PRN Reason: Nausea and Vomiting Cefazolin Sodium/Dextrose (Ancef) 2 gm in 50 mls @ 100 mls/hr IV Q8H [facility] Last Infusion: 12/03/22 13:05 Dose: Infused Linezolid (Linezolid 600 Mg Tablet) 600 mg PO Q12H [facility] Last Admin: 12/03/22 15:32 Dose: 600 mg Multivitamins/Vitamin C (Multivitamin Tablet) 1 tab PO DAILY [facility] Last Admin: 12/03/22 08:38 Dose: 1 tab Ondansetron HCl (Ondansetron Hcl 4 Mg/2 Ml Vial) 4 mg IVPUSH Q8H PRN PRN Reason: Nausea and Vomiting Pharmacy Consult (Consult Rx Perform Med Rec) 1 each MISCELLANE ONCE PRN PRN Reason: Consult order Sodium Chloride (0.9 % Sodium Chloride Flush 3 Ml Syringe) 3 ml IVFLUSH QSHIFT [facility] Last Admin: 12/03/22 15:32 Dose: 3 ml Tramadol HCl (Tramadol Hcl 50 Mg Tablet) 50 mg PO Q6H PRN PRN Reason: Pain, Moderate (Pain Scale 4-6 Vitamin D (Cholecalciferol (Vitamin D3) 25 Mcg Tablet) 50 mcg PO DAILY [facility] Last Admin: 12/03/22 08:38 Dose: 50 mcg Zinc Sulfate (Zinc Sulfate 220 Mg Capsule) 220 mg PO DAILY [facility] Last Admin: 12/03/22 08:38 Dose: 220 mg Home Medications Medication Instructions Recorded Confirmed Last Taken Type ascorbic acid (vitamin C) 500 mg 500 mg PO DAILY 11/29/22 11/29/22 Unknown History tablet (Vitamin C) cholecalciferol (vitamin D3) 50 50 mcg PO DAILY 11/29/22 11/29/22 Unknown History mcg (2,000 unit) tablet (Vitamin D3) multivitamin 1 tab PO DAILY 11/29/22 11/29/22 Unknown History zinc acetate 50 mg (zinc) capsule 50 mg PO DAILY 11/29/22 11/29/22 Unknown History Physical Exam Vital Signs: Vital Signs: Last Vital Signs Temp 97.7 F 12/03/22 15:37 Pulse 76 12/03/22 15:37 Resp 20 12/03/22 15:37 BP 140/74 H 12/03/22 15:37 Pulse Ox 98 12/03/22 15:37 O2 Del Method Room Air 12/03/22 15:37 O2 Flow Rate 2 12/01/22 23:02 BMI result Body Mass Index 24.3 Results Labs 12/02/22 06:08 12/03/22 05:35 Labs: BMP 12/03/22 05:35 Sodium 138 Potassium 4.2 Chloride 106 Carbon Dioxide 24 BUN 24 H Creatinine 1.30 Calcium 7.8 L Microbiology Microbiology Results: Microbiology 11/29/22 18:37 Blood - Venous Blood Culture - Final Staphylococcus aureus 12/01/22 21:16 Kidney Right Gram Stain - Final 12/01/22 21:16 Kidney Right Routine Culture - Preliminary Enterococcus/Streptococcus sp 11/29/22 17:40 Blood - Venous Blood Culture - Preliminary No growth after 48 hours. Assessment and Plan (1) Bladder stones: Status: Acute (2) Blockage of stent of ureter: Status: Acute (3) MSSA bacteremia: Status: Acute He has MSSA which is unknown source as different from bladder Possible bladder source not growing or skin source. There are urine and bladder stones growing enterococcus. MSSA bacteremia even though one culture should be treated as for bacteremia, four weeks. Enterococcus should be treat as UTI. Plan Kefzol IV for four weeks. TTE Po Linezolid for 10 days enterococcus. Recheck blood culture ensure clearing Time Spent With Patient Time: Total time managing care of this patient today ____ minutes.
[2022-12-03 19:33] VITALS: BP 127/72; PULSE 72; RESP 20; TEMP 36.9; O2SAT 97
[2022-12-04] VITALS (7 sets, daily range): BP systolic 113–150; BP diastolic 62–78; PULSE 64–81; RESP 16–18; TEMP 36.5–37.1; O2SAT 93–96
[2022-12-04] MEDS: Linezolid 600 MG TABLET PO ×2 (04:15→14:30)
[2022-12-04] MEDS: ceFAZolin Sodium/Dextrose,Iso 2 GM/50 ML PIGGYBACK IV ×3 (04:15→20:30)
--- NOTE | 2022-12-04 08:03 | PM.UROPN ---
Subjective Subjective Date of Service: 12/04/22 Interval history: Enterococcus positive culture Could discharge home on Levaquin for 14 days Discussed with hospitalist Infectious disease recommend treating based on initial culture which will require PICC line and IV therapy Will defer to ID Trying to plan for ESWL next week to continue working on stone clearance Physical Exam Vital Signs: Vital Signs: Last Vital Signs Temp 97.7 F 12/04/22 07:31 Pulse 66 12/04/22 07:31 Resp 16 12/04/22 07:31 BP 134/78 12/04/22 07:31 Pulse Ox 95 12/04/22 07:31 O2 Del Method Room Air 12/04/22 07:31 O2 Flow Rate 2 12/01/22 23:02 BMI result Body Mass Index 24.3 Const: General: cooperative, healthy appearing, comfortable and no acute distress Orientation/consciousness: patient oriented x3 HEENT: Face and sinus: Yes normal facial exam Mouth: moist mucous membranes Neck: Neck: Yes normal visual inspection, Yes full ROM and Yes trachea midline Chest: Chest palpation & inspection: normal inspection of the chest Resp: Effort & Inspection: normal respiratory effort, able to speak in complete sentences and no respiratory distress GI: Inspection: Yes normal to inspection Back/Spine/Pelvis: Cervical Spine: normal cervical lordosis Thoracic/Lumbar Spine: thoracic and lumbar spine normal to inspection Skin: General skin exam: no rashes or lesions noted Neuro: General: patient oriented x3, tone normal and moves all extremities Extrem: General: Yes normal to inspection and Yes capillary refill normal Urology Results Labs 12/02/22 06:08 12/03/22 05:35 Progress Note: A&P Assessment and plan (1) Renal calculus, right: Status: Acute (2) Pyelonephritis: Status: Acute Plan Continue antibiotics Planning for ESWL Time Spent With Patient Time: Total time managing care of this patient today ____ minutes. Progress Note: Quality Stroke Does the patient have a stroke diagnosis?: No
[2022-12-04 08:34] LABS: Hematocrit 37.9 % (42.0-52.0); Hemoglobin 12.6 g/dl (14.0-18.0); Mean Corpuscular HGB Conc 33.2 g/dl (31.0-36.0); Mean Corpuscular Hemoglobin 26.1 pg (27.0-33.0); Mean Corpuscular Volume 78.6 fL (80.0-98.0); Mean Platelet Volume 9.5 fL (9.4-12.4); Platelet Count 322 X10*3/uL (160-400); Red Blood Count 4.82 X10*6/uL (4.60-5.80); White Blood Count 12.2 X10*3/uL (4.8-10.8)
[2022-12-04 08:44] LABS: Anion Gap 12 (12-20); Blood Urea Nitrogen 18 mg/dL (9-16); Carbon Dioxide 24 mmol/L (22-29); Chloride 104 mmol/L (96-108); Creatinine Clr Calc Pharmacy 61.6; Estimated Glomerular Filt Rate 53; Glucose Fasting 145 mg/dL (60-99); Potassium 4.2 mmol/L (3.3-5.1); Sodium 136 mmol/L (135-145)
[2022-12-04] MEDS: Ascorbic Acid 500 MG TABLET PO (09:00)
[2022-12-04] MEDS: Multivitamin TABLET 1 TAB PO (09:00)
[2022-12-04] MEDS: Zinc Sulfate 220 MG CAPSULE PO (09:00)
[2022-12-04] MEDS: Cholecalciferol (Vitamin D3) 25 MCG TABLET 50 MCG PO (09:00)
[2022-12-04] MEDS: Finasteride 5 MG TABLET PO (09:00)
[2022-12-04] MEDS: 0.9 % Sodium Chloride Flush 3 ML SYRINGE IVFLUSH ×3 (09:01→20:30)
--- NOTE | 2022-12-04 10:14 | HO.PM.IMPN ---
Subjective Subjective Date of Service: 12/04/22 Interval History: feels well Physical Exam Vital Signs: Vital Signs: Last Vital Signs Temp 97.7 F 12/04/22 07:31 Pulse 66 12/04/22 07:31 Resp 16 12/04/22 07:31 BP 134/78 12/04/22 07:31 Pulse Ox 95 12/04/22 07:31 O2 Del Method Room Air 12/04/22 07:31 O2 Flow Rate 2 12/01/22 23:02 BMI result Body Mass Index 24.3 General: AO X 3, no acute distress Resp: CTA bilateral, no accessory muscles used CVS: S1,S2,RRR GI: soft, non tender, non distended Neuro: motor grossly intact, alert Psych: appropriate affect, appropriate insight Objective Data Active Medications Acetaminophen (Acetaminophen 325 Mg Tablet) 650 mg PO Q6H PRN PRN Reason: Pain, Mild (Pain Scale 1-3) Last Admin: 11/30/22 15:54 Dose: 650 mg Documented By: ALVARO Ascorbic Acid (Ascorbic Acid 500 Mg Tablet) 500 mg PO DAILY [facility] Last Admin: 12/04/22 09:00 Dose: 500 mg Documented By: CLARA Docusate Sodium (Docusate Sodium 100 Mg Capsule) 100 mg PO DAILY PRN PRN Reason: Constipation Enoxaparin Sodium (Enoxaparin Sodium 40 Mg/0.4 Ml Syringe) 40 mg SUBCUT Q24H [facility] Last Admin: 12/03/22 12:27 Dose: 40 mg Documented By: NII Fentanyl (Fentanyl Citrate/Pf 100 Mcg/2 Ml Vial) 50 mcg IVPUSH Q5M PRN; Protocol PRN Reason: Pain, Severe (Pain Scale 7-10) Finasteride (Finasteride 5 Mg Tablet) 5 mg PO DAILY [facility] Last Admin: 12/04/22 09:00 Dose: 5 mg Documented By: CLARA Hydromorphone HCl (Hydromorphone Hcl 0.5 Mg/0.5 Ml Syringe) 0.5 mg IVPUSH Q5M PRN; Protocol PRN Reason: Pain, Severe (Pain Scale 7-10) Promethazine HCl 12.5 mg/ (Sodium Chloride) 50.5 mls @ 202 mls/hr IV ONCE PRN PRN Reason: Nausea and Vomiting Cefazolin Sodium/Dextrose (Ancef) 2 gm in 50 mls @ 100 mls/hr IV Q8H [facility] Last Infusion: 12/04/22 04:58 Dose: 0 mls/hr Documented By: MAHI Linezolid (Linezolid 600 Mg Tablet) 600 mg PO Q12H [facility] Last Admin: 12/04/22 04:15 Dose: 600 mg Documented By: MAHI Multivitamins/Vitamin C (Multivitamin Tablet) 1 tab PO DAILY [facility] Last Admin: 12/04/22 09:00 Dose: 1 tab Documented By: CLARA Ondansetron HCl (Ondansetron Hcl 4 Mg/2 Ml Vial) 4 mg IVPUSH Q8H PRN PRN Reason: Nausea and Vomiting Pharmacy Consult (Consult Rx Perform Med Rec) 1 each MISCELLANE ONCE PRN PRN Reason: Consult order Sodium Chloride (0.9 % Sodium Chloride Flush 3 Ml Syringe) 3 ml IVFLUSH QSHIFT [facility] Last Admin: 12/04/22 09:01 Dose: 3 ml Documented By: CLARA Tramadol HCl (Tramadol Hcl 50 Mg Tablet) 50 mg PO Q6H PRN PRN Reason: Pain, Moderate (Pain Scale 4-6 Vitamin D (Cholecalciferol (Vitamin D3) 25 Mcg Tablet) 50 mcg PO DAILY [facility] Last Admin: 12/04/22 09:00 Dose: 50 mcg Documented By: CLARA Zinc Sulfate (Zinc Sulfate 220 Mg Capsule) 220 mg PO DAILY [facility] Last Admin: 12/04/22 09:00 Dose: 220 mg Documented By: CLARA Labs 12/04/22 08:20 12/04/22 08:20 Labs: Laboratory Results - last 24 hr 12/04/22 12/04/22 08:20 08:20 MCV 78.6 L MCH 26.1 L MCHC 33.2 RDW 15.0 Plt Count 322 D MPV 9.5 Absolute Nucleated RBC 0.000 Nucleated RBC % (auto) 0.0 Anion Gap 12 Estim Creat Clear Calc 61.6 Estimated GFR 53 Fasting Glucose 145 H Calcium 8.0 L Microbiology Microbiology Results: Microbiology 12/01/22 21:16 Gram Stain - Final Kidney Right Routine Culture - Final Enterococcus faecalis 11/29/22 18:37 Blood Culture - Final Blood - Venous Staphylococcus aureus Assessment and Plan (1) Renal calculus, right: Status: Acute (2) Hydronephrosis: Status: Acute (3) Acute unilateral obstructive uropathy: Status: Acute (4) Acute kidney injury: Status: Acute Plan 67-year-old male with past medical history of stent in the ureter on the right, presented to the hospital with weakness, nausea vomiting, chills, as well as urinary symptoms and right flank pain found to have acute UTI and obstructing uropathy Sepsis and acute kidney injury due to acute right-sided hydronephrosis with obstructing stone complicated by MSSA bacteremia rajendra resolved Status post stent exchange Kidney culture growing Enterococcus/strep species Blood culture growing MSSA Ancef 4 weeks, tte Id appreciated Follow-up repeat cultures BPH Finasteride DVT prophylaxis: lovenox full code reason for continued hospitalization: still with bacteremia Time Spent With Patient Time: Total time managing care of this patient today ____ minutes. Quality Stroke Does the patient have a stroke diagnosis?: No VTE Prior VTE?: No VTE Risk Level:: Medical - moderate - high VTE Device Contraindication: Treatment Not Indicated VTE Drug Contraindication: N/A - Med Ordered
[2022-12-04] MEDS: Enoxaparin Sodium 40 MG/0.4 ML SYRINGE SUBCUT (11:14)
[2022-12-05] MEDS: ceFAZolin Sodium/Dextrose,Iso 2 GM/50 ML PIGGYBACK IV ×3 (03:27→19:31)
[2022-12-05] MEDS: Linezolid 600 MG TABLET PO ×2 (03:27→14:42)
[2022-12-05 04:00] VITALS: BP 116/65; PULSE 67; RESP 16; TEMP 37.2; O2SAT 95
[2022-12-05 07:42] VITALS: BP 131/77; PULSE 73; RESP 18; TEMP 36.6; O2SAT 93
[2022-12-05] MEDS: Ascorbic Acid 500 MG TABLET PO (08:56)
[2022-12-05] MEDS: Cholecalciferol (Vitamin D3) 25 MCG TABLET 50 MCG PO (08:56)
[2022-12-05] MEDS: 0.9 % Sodium Chloride Flush 3 ML SYRINGE IVFLUSH ×3 (08:56→19:30)
[2022-12-05] MEDS: Zinc Sulfate 220 MG CAPSULE PO (08:56)
[2022-12-05] MEDS: Finasteride 5 MG TABLET PO (08:56)
[2022-12-05] MEDS: Multivitamin TABLET 1 TAB PO (08:56)
--- NOTE | 2022-12-05 09:17 | P.PNIM_ITS ---
Subjective Subjective Date of Service: 12/05/22 Interval History: no complaints Physical Exam Vital Signs: Vital Signs: Last Vital Signs Temp 97.9 F 12/05/22 07:42 Pulse 73 12/05/22 07:42 Resp 18 12/05/22 07:42 BP 131/77 12/05/22 07:42 Pulse Ox 93 12/05/22 07:42 O2 Del Method Room Air 12/05/22 07:42 O2 Flow Rate 2 12/01/22 23:02 BMI result Body Mass Index 24.3 General: AO X 3, no acute distress Resp: CTA bilateral, no accessory muscles used CVS: S1,S2,RRR GI: soft, non tender, non distended Neuro: motor grossly intact, alert Psych: appropriate affect, appropriate insight Objective Data Active Medications Acetaminophen (Acetaminophen 325 Mg Tablet) 650 mg PO Q6H PRN PRN Reason: Pain, Mild (Pain Scale 1-3) Last Admin: 11/30/22 15:54 Dose: 650 mg Documented By: ALVARO Ascorbic Acid (Ascorbic Acid 500 Mg Tablet) 500 mg PO DAILY [facility] Last Admin: 12/05/22 08:56 Dose: 500 mg Documented By: ALVARO Docusate Sodium (Docusate Sodium 100 Mg Capsule) 100 mg PO DAILY PRN PRN Reason: Constipation Enoxaparin Sodium (Enoxaparin Sodium 40 Mg/0.4 Ml Syringe) 40 mg SUBCUT Q24H [facility] Last Admin: 12/04/22 11:14 Dose: 40 mg Documented By: CLARA Fentanyl (Fentanyl Citrate/Pf 100 Mcg/2 Ml Vial) 50 mcg IVPUSH Q5M PRN; Protocol PRN Reason: Pain, Severe (Pain Scale 7-10) Finasteride (Finasteride 5 Mg Tablet) 5 mg PO DAILY [facility] Last Admin: 12/05/22 08:56 Dose: 5 mg Documented By: ALVARO Hydromorphone HCl (Hydromorphone Hcl 0.5 Mg/0.5 Ml Syringe) 0.5 mg IVPUSH Q5M PRN; Protocol PRN Reason: Pain, Severe (Pain Scale 7-10) Promethazine HCl 12.5 mg/ (Sodium Chloride) 50.5 mls @ 202 mls/hr IV ONCE PRN PRN Reason: Nausea and Vomiting Cefazolin Sodium/Dextrose (Ancef) 2 gm in 50 mls @ 100 mls/hr IV Q8H [facility] Last Infusion: 12/05/22 04:08 Dose: 0 mls/hr Documented By: CONCEPCION Linezolid (Linezolid 600 Mg Tablet) 600 mg PO Q12H [facility] Last Admin: 12/05/22 03:27 Dose: 600 mg Documented By: CONCEPCION Multivitamins/Vitamin C (Multivitamin Tablet) 1 tab PO DAILY [facility] Last Admin: 12/05/22 08:56 Dose: 1 tab Documented By: ALVARO Ondansetron HCl (Ondansetron Hcl 4 Mg/2 Ml Vial) 4 mg IVPUSH Q8H PRN PRN Reason: Nausea and Vomiting Pharmacy Consult (Consult Rx Perform Med Rec) 1 each MISCELLANE ONCE PRN PRN Reason: Consult order Sodium Chloride (0.9 % Sodium Chloride Flush 3 Ml Syringe) 3 ml IVFLUSH QSHIFT [facility] Last Admin: 12/05/22 08:56 Dose: 3 ml Documented By: ALVARO Tramadol HCl (Tramadol Hcl 50 Mg Tablet) 50 mg PO Q6H PRN PRN Reason: Pain, Moderate (Pain Scale 4-6 Vitamin D (Cholecalciferol (Vitamin D3) 25 Mcg Tablet) 50 mcg PO DAILY [facility] Last Admin: 12/05/22 08:56 Dose: 50 mcg Documented By: ALVARO Zinc Sulfate (Zinc Sulfate 220 Mg Capsule) 220 mg PO DAILY [facility] Last Admin: 12/05/22 08:56 Dose: 220 mg Documented By: ALVARO Labs 12/04/22 08:20 12/04/22 08:20 Microbiology Microbiology Results: Microbiology 11/29/22 17:40 Blood Culture - Final Blood - Venous No growth after 5 days. 12/01/22 21:16 Gram Stain - Final Kidney Right Routine Culture - Final Enterococcus faecalis Assessment and Plan (1) Renal calculus, right: Status: Acute (2) Hydronephrosis: Status: Acute (3) Acute unilateral obstructive uropathy: Status: Acute (4) Acute kidney injury: Status: Acute Plan 67-year-old male with past medical history of stent in the ureter on the right, presented to the hospital with weakness, nausea vomiting, chills, as well as urinary symptoms and right flank pain found to have acute UTI and obstructing uropathy Sepsis and acute kidney injury due to acute right-sided hydronephrosis with obstructing stone complicated by MSSA bacteremia rajendra resolved Status post stent exchange Kidney culture growing Enterococcus/strep species Blood culture growing MSSA Ancef 4 weeks, tte, zyvox 10 days (end november) Id appreciated Follow-up repeat cultures BPH Finasteride DVT prophylaxis: lovenox full code reason for continued hospitalization: still with bacteremia Time Spent With Patient Time: Total time managing care of this patient today ____ minutes. Quality Stroke Does the patient have a stroke diagnosis?: No VTE Prior VTE?: No VTE Risk Level:: Medical - moderate - high VTE Device Contraindication: Treatment Not Indicated VTE Drug Contraindication: N/A - Med Ordered
[2022-12-05] MEDS: Enoxaparin Sodium 40 MG/0.4 ML SYRINGE SUBCUT (11:51)
[2022-12-05 12:00] VITALS: BP 121/70; PULSE 75; RESP 20; TEMP 37; O2SAT 96
[2022-12-05 16:00] VITALS: BP 130/66; PULSE 77; RESP 16; TEMP 36.7; O2SAT 95
[2022-12-05 20:00] VITALS: BP 118/63; PULSE 71; RESP 16; TEMP 36.7; O2SAT 95
[2022-12-05 23:15] VITALS: BP 129/73; PULSE 65; RESP 16; TEMP 36.6; O2SAT 98
[2022-12-06 02:23] VITALS: BP 140/79; PULSE 67; RESP 18; TEMP 36.4; O2SAT 94
[2022-12-06] MEDS: Linezolid 600 MG TABLET PO ×2 (03:50→15:04)
[2022-12-06] MEDS: ceFAZolin Sodium/Dextrose,Iso 2 GM/50 ML PIGGYBACK IV ×3 (03:52→20:19)
[2022-12-06 07:39] VITALS: BP 129/70; PULSE 64; RESP 18; TEMP 36.7; O2SAT 93
[2022-12-06] MEDS: Zinc Sulfate 220 MG CAPSULE PO (07:57)
[2022-12-06] MEDS: Finasteride 5 MG TABLET PO (07:57)
[2022-12-06] MEDS: Cholecalciferol (Vitamin D3) 25 MCG TABLET 50 MCG PO (07:57)
[2022-12-06] MEDS: Multivitamin TABLET 1 TAB PO (07:57)
[2022-12-06] MEDS: Ascorbic Acid 500 MG TABLET PO (07:57)
--- NOTE | 2022-12-06 09:02 | HO.PM.IMPN ---
Subjective Subjective Date of Service: 12/06/22 Interval History: no complaints Physical Exam Vital Signs: Vital Signs: Last Vital Signs Temp 98.1 F 12/06/22 07:39 Pulse 64 12/06/22 07:39 Resp 18 12/06/22 07:39 BP 129/70 12/06/22 07:39 Pulse Ox 93 12/06/22 07:39 O2 Del Method Room Air 12/06/22 02:23 O2 Flow Rate 2 12/01/22 23:02 BMI result Body Mass Index 24.3 General: AO X 3, no acute distress Resp: CTA bilateral, no accessory muscles used CVS: S1,S2,RRR GI: soft, non tender, non distended Neuro: motor grossly intact, alert Psych: appropriate affect, appropriate insight Objective Data Active Medications Acetaminophen (Acetaminophen 325 Mg Tablet) 650 mg PO Q6H PRN PRN Reason: Pain, Mild (Pain Scale 1-3) Last Admin: 11/30/22 15:54 Dose: 650 mg Documented By: ALVARO Ascorbic Acid (Ascorbic Acid 500 Mg Tablet) 500 mg PO DAILY [facility] Last Admin: 12/06/22 07:57 Dose: 500 mg Documented By: MAE Docusate Sodium (Docusate Sodium 100 Mg Capsule) 100 mg PO DAILY PRN PRN Reason: Constipation Enoxaparin Sodium (Enoxaparin Sodium 40 Mg/0.4 Ml Syringe) 40 mg SUBCUT Q24H [facility] Last Admin: 12/05/22 11:51 Dose: 40 mg Documented By: ALVARO Fentanyl (Fentanyl Citrate/Pf 100 Mcg/2 Ml Vial) 50 mcg IVPUSH Q5M PRN; Protocol PRN Reason: Pain, Severe (Pain Scale 7-10) Finasteride (Finasteride 5 Mg Tablet) 5 mg PO DAILY [facility] Last Admin: 12/06/22 07:57 Dose: 5 mg Documented By: MAE Hydromorphone HCl (Hydromorphone Hcl 0.5 Mg/0.5 Ml Syringe) 0.5 mg IVPUSH Q5M PRN; Protocol PRN Reason: Pain, Severe (Pain Scale 7-10) Promethazine HCl 12.5 mg/ (Sodium Chloride) 50.5 mls @ 202 mls/hr IV ONCE PRN PRN Reason: Nausea and Vomiting Cefazolin Sodium/Dextrose (Ancef) 2 gm in 50 mls @ 100 mls/hr IV Q8H [facility] Last Infusion: 12/06/22 04:26 Dose: 0 mls/hr Documented By: RUSSEL Linezolid (Linezolid 600 Mg Tablet) 600 mg PO Q12H [facility] Last Admin: 12/06/22 03:50 Dose: 600 mg Documented By: RUSSEL Multivitamins/Vitamin C (Multivitamin Tablet) 1 tab PO DAILY [facility] Last Admin: 12/06/22 07:57 Dose: 1 tab Documented By: MAE Ondansetron HCl (Ondansetron Hcl 4 Mg/2 Ml Vial) 4 mg IVPUSH Q8H PRN PRN Reason: Nausea and Vomiting Pharmacy Consult (Consult Rx Perform Med Rec) 1 each MISCELLANE ONCE PRN PRN Reason: Consult order Sodium Chloride (0.9 % Sodium Chloride Flush 3 Ml Syringe) 3 ml IVFLUSH QSHIFT [facility] Last Admin: 12/05/22 19:30 Dose: 3 ml Documented By: RUSSEL Tramadol HCl (Tramadol Hcl 50 Mg Tablet) 50 mg PO Q6H PRN PRN Reason: Pain, Moderate (Pain Scale 4-6 Vitamin D (Cholecalciferol (Vitamin D3) 25 Mcg Tablet) 50 mcg PO DAILY [facility] Last Admin: 12/06/22 07:57 Dose: 50 mcg Documented By: MAE Zinc Sulfate (Zinc Sulfate 220 Mg Capsule) 220 mg PO DAILY [facility] Last Admin: 12/06/22 07:57 Dose: 220 mg Documented By: MAE Labs 12/04/22 08:20 12/04/22 08:20 Microbiology Microbiology Results: Microbiology 12/04/22 08:22 Blood Culture - Preliminary Blood - Venous No growth after 24 hours. 12/04/22 08:19 Blood Culture - Preliminary Blood - Venous No growth after 24 hours. Assessment and Plan (1) Renal calculus, right: Status: Acute (2) Hydronephrosis: Status: Acute (3) Acute unilateral obstructive uropathy: Status: Acute (4) Acute kidney injury: Status: Acute Plan 67-year-old male with past medical history of stent in the ureter on the right, presented to the hospital with weakness, nausea vomiting, chills, as well as urinary symptoms and right flank pain found to have acute UTI and obstructing uropathy Sepsis and acute kidney injury due to acute right-sided hydronephrosis with obstructing stone complicated by MSSA bacteremia rajendra resolved Status post stent exchange Kidney culture growing Enterococcus/strep species Blood culture growing MSSA Ancef 4 weeks, tte, zyvox 10 days (end november) Id appreciated Follow-up repeat cultures BPH Finasteride DVT prophylaxis: lovenox full code reason for continued hospitalization: still with bacteremia Time Spent With Patient Time: Total time managing care of this patient today ____ minutes. Quality Stroke Does the patient have a stroke diagnosis?: No VTE Prior VTE?: No VTE Risk Level:: Medical - moderate - high VTE Device Contraindication: Treatment Not Indicated VTE Drug Contraindication: N/A - Med Ordered
[2022-12-06] MEDS: 0.9 % Sodium Chloride Flush 3 ML SYRINGE IVFLUSH ×3 (09:23→20:44)
[2022-12-06 11:55] VITALS: BP 119/70; PULSE 75; RESP 18; TEMP 36.2; O2SAT 96
[2022-12-06] MEDS: Enoxaparin Sodium 40 MG/0.4 ML SYRINGE SUBCUT (11:59)
[2022-12-06 15:54] VITALS: BP 125/70; PULSE 70; RESP 16; TEMP 36.4; O2SAT 97
[2022-12-06 19:52] VITALS: BP 125/68; PULSE 74; RESP 16; TEMP 36.5; O2SAT 97
[2022-12-06 23:49] VITALS: BP 137/84; PULSE 70; RESP 18; TEMP 36.9; O2SAT 96
[2022-12-07] MEDS: ceFAZolin Sodium/Dextrose,Iso 2 GM/50 ML PIGGYBACK IV ×3 (03:32→20:25)
[2022-12-07] MEDS: Linezolid 600 MG TABLET PO ×2 (03:32→14:36)
[2022-12-07 03:34] VITALS: BP 144/74; PULSE 73; RESP 18; TEMP 36.4; O2SAT 96
[2022-12-07 07:39] VITALS: BP 141/82; PULSE 85; RESP 18; TEMP 36.3; O2SAT 94
[2022-12-07] MEDS: 0.9 % Sodium Chloride Flush 3 ML SYRINGE IVFLUSH ×2 (08:14→17:48)
[2022-12-07] MEDS: Finasteride 5 MG TABLET PO (08:15)
[2022-12-07] MEDS: Zinc Sulfate 220 MG CAPSULE PO (08:16)
[2022-12-07] MEDS: Ascorbic Acid 500 MG TABLET PO (08:16)
[2022-12-07] MEDS: Multivitamin TABLET 1 TAB PO (08:16)
[2022-12-07] MEDS: Cholecalciferol (Vitamin D3) 25 MCG TABLET 50 MCG PO (08:16)
--- NOTE | 2022-12-07 08:42 | P.PNIM_ITS ---
Subjective Subjective Date of Service: 12/07/22 Interval History: no complaints Physical Exam Vital Signs: Vital Signs: Last Vital Signs Temp 97.3 F 12/07/22 07:39 Pulse 85 12/07/22 07:39 Resp 18 12/07/22 07:39 BP 141/82 H 12/07/22 07:39 Pulse Ox 94 12/07/22 07:39 O2 Del Method Room Air 12/07/22 07:39 O2 Flow Rate 2 12/01/22 23:02 BMI result Body Mass Index 24.3 General: AO X 3, no acute distress Resp: CTA bilateral, no accessory muscles used CVS: S1,S2,RRR GI: soft, non tender, non distended Neuro: motor grossly intact, alert Psych: appropriate affect, appropriate insight Objective Data Active Medications Acetaminophen (Acetaminophen 325 Mg Tablet) 650 mg PO Q6H PRN PRN Reason: Pain, Mild (Pain Scale 1-3) Last Admin: 11/30/22 15:54 Dose: 650 mg Documented By: ALVARO Ascorbic Acid (Ascorbic Acid 500 Mg Tablet) 500 mg PO DAILY [facility] Last Admin: 12/07/22 08:16 Dose: 500 mg Documented By: CLARA Docusate Sodium (Docusate Sodium 100 Mg Capsule) 100 mg PO DAILY PRN PRN Reason: Constipation Enoxaparin Sodium (Enoxaparin Sodium 40 Mg/0.4 Ml Syringe) 40 mg SUBCUT Q24H [facility] Last Admin: 12/06/22 11:59 Dose: 40 mg Documented By: MAE Finasteride (Finasteride 5 Mg Tablet) 5 mg PO DAILY [facility] Last Admin: 12/07/22 08:15 Dose: 5 mg Documented By: CLARA Hydromorphone HCl (Hydromorphone Hcl 0.5 Mg/0.5 Ml Syringe) 0.5 mg IVPUSH Q5M PRN; Protocol PRN Reason: Pain, Severe (Pain Scale 7-10) Promethazine HCl 12.5 mg/ (Sodium Chloride) 50.5 mls @ 202 mls/hr IV ONCE PRN PRN Reason: Nausea and Vomiting Cefazolin Sodium/Dextrose (Ancef) 2 gm in 50 mls @ 100 mls/hr IV Q8H [facility] Last Infusion: 12/07/22 04:12 Dose: 0 mls/hr Documented By: LACY Linezolid (Linezolid 600 Mg Tablet) 600 mg PO Q12H [facility] Last Admin: 12/07/22 03:32 Dose: 600 mg Documented By: LACY Multivitamins/Vitamin C (Multivitamin Tablet) 1 tab PO DAILY [facility] Last Admin: 12/07/22 08:16 Dose: 1 tab Documented By: CLARA Ondansetron HCl (Ondansetron Hcl 4 Mg/2 Ml Vial) 4 mg IVPUSH Q8H PRN PRN Reason: Nausea and Vomiting Pharmacy Consult (Consult Rx Perform Med Rec) 1 each MISCELLANE ONCE PRN PRN Reason: Consult order Sodium Chloride (0.9 % Sodium Chloride Flush 3 Ml Syringe) 3 ml IVFLUSH QSHIFT [facility] Last Admin: 12/07/22 08:14 Dose: 3 ml Documented By: CLARA Vitamin D (Cholecalciferol (Vitamin D3) 25 Mcg Tablet) 50 mcg PO DAILY [facility] Last Admin: 12/07/22 08:16 Dose: 50 mcg Documented By: CLARA Zinc Sulfate (Zinc Sulfate 220 Mg Capsule) 220 mg PO DAILY [facility] Last Admin: 12/07/22 08:16 Dose: 220 mg Documented By: CLARA Labs 12/04/22 08:20 12/04/22 08:20 Microbiology Microbiology Results: Microbiology 12/04/22 08:22 Blood Culture - Preliminary Blood - Venous No growth after 48 hours. 12/04/22 08:19 Blood Culture - Preliminary Blood - Venous No growth after 48 hours. Assessment and Plan (1) Renal calculus, right: Status: Acute (2) Hydronephrosis: Status: Acute (3) Acute unilateral obstructive uropathy: Status: Acute (4) Acute kidney injury: Status: Acute Plan 67-year-old male with past medical history of stent in the ureter on the right, presented to the hospital with weakness, nausea vomiting, chills, as well as urinary symptoms and right flank pain found to have acute UTI and obstructing uropathy Sepsis and acute kidney injury due to acute right-sided hydronephrosis with obstructing stone complicated by MSSA bacteremia rajendra resolved Status post stent exchange Kidney culture growing Enterococcus/strep species Blood culture growing MSSA Ancef 4 weeks zyvox 10 days (end november) Id appreciated Follow-up repeat cultures BPH Finasteride DVT prophylaxis: lovenox full code reason for continued hospitalization: still with bacteremia Time Spent With Patient Time: Total time managing care of this patient today ____ minutes. Quality Stroke Does the patient have a stroke diagnosis?: No VTE Prior VTE?: No VTE Risk Level:: Medical - moderate - high VTE Device Contraindication: Treatment Not Indicated VTE Drug Contraindication: N/A - Med Ordered
[2022-12-07] MEDS: Enoxaparin Sodium 40 MG/0.4 ML SYRINGE SUBCUT (11:34)
[2022-12-07 11:47] VITALS: BP 129/66; PULSE 69; RESP 18; TEMP 36.2; O2SAT 95
[2022-12-07 15:48] VITALS: BP 123/70; PULSE 65; RESP 16; TEMP 36.6; O2SAT 97
[2022-12-07 19:31] VITALS: BP 114/62; PULSE 73; RESP 16; TEMP 36.7; O2SAT 96
[2022-12-07 23:35] VITALS: BP 136/77; PULSE 72; RESP 16; TEMP 36.9; O2SAT 94
[2022-12-08] MEDS: Linezolid 600 MG TABLET PO ×2 (03:51→14:47)
[2022-12-08] MEDS: ceFAZolin Sodium/Dextrose,Iso 2 GM/50 ML PIGGYBACK IV ×3 (03:51→20:48)
[2022-12-08 03:52] VITALS: BP 132/69; PULSE 70; RESP 16; TEMP 36.6; O2SAT 94
[2022-12-08 07:34] VITALS: BP 122/73; PULSE 69; RESP 18; TEMP 37.1; O2SAT 94
[2022-12-08] MEDS: Finasteride 5 MG TABLET PO (09:12)
[2022-12-08] MEDS: Ascorbic Acid 500 MG TABLET PO (09:12)
[2022-12-08] MEDS: Cholecalciferol (Vitamin D3) 25 MCG TABLET 50 MCG PO (09:12)
[2022-12-08] MEDS: Multivitamin TABLET 1 TAB PO (09:12)
[2022-12-08] MEDS: Zinc Sulfate 220 MG CAPSULE PO (09:12)
[2022-12-08] MEDS: 0.9 % Sodium Chloride Flush 3 ML SYRINGE IVFLUSH ×2 (09:13→14:48)
--- NOTE | 2022-12-08 09:39 | HO.PM.IMPN ---
Subjective Subjective Date of Service: 12/08/22 Interval History: no complaints Physical Exam Vital Signs: Vital Signs: Last Vital Signs Temp 98.7 F 12/08/22 07:34 Pulse 69 12/08/22 07:34 Resp 18 12/08/22 07:34 BP 122/73 12/08/22 07:34 Pulse Ox 94 12/08/22 07:34 O2 Del Method Room Air 12/08/22 07:34 O2 Flow Rate 2 12/01/22 23:02 BMI result Body Mass Index 24.3 General: AO X 3, no acute distress Resp: CTA bilateral, no accessory muscles used CVS: S1,S2,RRR GI: soft, non tender, non distended Neuro: motor grossly intact, alert Psych: appropriate affect, appropriate insight Objective Data Active Medications Acetaminophen (Acetaminophen 325 Mg Tablet) 650 mg PO Q6H PRN PRN Reason: Pain, Mild (Pain Scale 1-3) Last Admin: 11/30/22 15:54 Dose: 650 mg Documented By: ALVARO Ascorbic Acid (Ascorbic Acid 500 Mg Tablet) 500 mg PO DAILY [facility] Last Admin: 12/08/22 09:12 Dose: 500 mg Documented By: ALEKSANDRA Docusate Sodium (Docusate Sodium 100 Mg Capsule) 100 mg PO DAILY PRN PRN Reason: Constipation Enoxaparin Sodium (Enoxaparin Sodium 40 Mg/0.4 Ml Syringe) 40 mg SUBCUT Q24H [facility] Last Admin: 12/07/22 11:34 Dose: 40 mg Documented By: CLARA Finasteride (Finasteride 5 Mg Tablet) 5 mg PO DAILY [facility] Last Admin: 12/08/22 09:12 Dose: 5 mg Documented By: ALEKSANDRA Hydromorphone HCl (Hydromorphone Hcl 0.5 Mg/0.5 Ml Syringe) 0.5 mg IVPUSH Q5M PRN; Protocol PRN Reason: Pain, Severe (Pain Scale 7-10) Promethazine HCl 12.5 mg/ (Sodium Chloride) 50.5 mls @ 202 mls/hr IV ONCE PRN PRN Reason: Nausea and Vomiting Cefazolin Sodium/Dextrose (Ancef) 2 gm in 50 mls @ 100 mls/hr IV Q8H [facility] Last Infusion: 12/08/22 04:35 Dose: 0 mls/hr Documented By: MAHI Linezolid (Linezolid 600 Mg Tablet) 600 mg PO Q12H [facility] Stop: 12/13/22 03:01 Last Admin: 12/08/22 03:51 Dose: 600 mg Documented By: MAHI Multivitamins/Vitamin C (Multivitamin Tablet) 1 tab PO DAILY [facility] Last Admin: 12/08/22 09:12 Dose: 1 tab Documented By: ALEKSANDRA Ondansetron HCl (Ondansetron Hcl 4 Mg/2 Ml Vial) 4 mg IVPUSH Q8H PRN PRN Reason: Nausea and Vomiting Pharmacy Consult (Consult Rx Perform Med Rec) 1 each MISCELLANE ONCE PRN PRN Reason: Consult order Sodium Chloride (0.9 % Sodium Chloride Flush 3 Ml Syringe) 3 ml IVFLUSH QSHIFT [facility] Last Admin: 12/08/22 09:13 Dose: 3 ml Documented By: ALEKSANDRA Vitamin D (Cholecalciferol (Vitamin D3) 25 Mcg Tablet) 50 mcg PO DAILY [facility] Last Admin: 12/08/22 09:12 Dose: 50 mcg Documented By: ALEKSANDRA Zinc Sulfate (Zinc Sulfate 220 Mg Capsule) 220 mg PO DAILY [facility] Last Admin: 12/08/22 09:12 Dose: 220 mg Documented By: ALEKSANDRA Labs 12/04/22 08:20 12/04/22 08:20 Assessment and Plan (1) Renal calculus, right: Status: Acute (2) Hydronephrosis: Status: Acute (3) Acute unilateral obstructive uropathy: Status: Acute (4) Acute kidney injury: Status: Acute Plan 67-year-old male with past medical history of stent in the ureter on the right, presented to the hospital with weakness, nausea vomiting, chills, as well as urinary symptoms and right flank pain found to have acute UTI and obstructing uropathy Sepsis and acute kidney injury due to acute right-sided hydronephrosis with obstructing stone complicated by MSSA bacteremia rajendra resolved Status post stent exchange Kidney culture growing Enterococcus/strep species Blood culture growing MSSA Ancef 4 weeks zyvox 10 days (end november) Id appreciated Follow-up repeat cultures BPH Finasteride DVT prophylaxis: lovenox full code reason for continued hospitalization: still with bacteremia Time Spent With Patient Time: Total time managing care of this patient today ____ minutes. Quality Stroke Does the patient have a stroke diagnosis?: No VTE Prior VTE?: No VTE Risk Level:: Medical - moderate - high VTE Device Contraindication: Treatment Not Indicated VTE Drug Contraindication: N/A - Med Ordered
[2022-12-08 11:47] VITALS: BP 133/71; PULSE 91; RESP 18; TEMP 36.4; O2SAT 97
[2022-12-08] MEDS: Enoxaparin Sodium 40 MG/0.4 ML SYRINGE SUBCUT (12:06)
[2022-12-08 15:22] VITALS: BP 115/65; PULSE 70; RESP 18; TEMP 36.7; O2SAT 98
[2022-12-08 19:06] VITALS: BP 120/70; PULSE 70; RESP 20; TEMP 36.6; O2SAT 97
[2022-12-08 23:34] VITALS: BP 124/72; PULSE 67; RESP 16; TEMP 36.5; O2SAT 95
[2022-12-09 04:00] VITALS: BP 121/70; PULSE 68; RESP 16; TEMP 36.8; O2SAT 95
[2022-12-09] MEDS: ceFAZolin Sodium/Dextrose,Iso 2 GM/50 ML PIGGYBACK IV ×2 (04:16→11:32)
[2022-12-09] MEDS: Linezolid 600 MG TABLET PO ×2 (04:16→14:20)
[2022-12-09 07:51] VITALS: BP 126/74; PULSE 62; RESP 20; TEMP 36.8; O2SAT 95
[2022-12-09] MEDS: Zinc Sulfate 220 MG CAPSULE PO (08:48)
[2022-12-09] MEDS: Finasteride 5 MG TABLET PO (08:48)
[2022-12-09] MEDS: Multivitamin TABLET 1 TAB PO (08:48)
[2022-12-09] MEDS: Ascorbic Acid 500 MG TABLET PO (08:48)
[2022-12-09] MEDS: Cholecalciferol (Vitamin D3) 25 MCG TABLET 50 MCG PO (08:48)
[2022-12-09] MEDS: 0.9 % Sodium Chloride Flush 3 ML SYRINGE IVFLUSH ×2 (08:49→15:49)
[2022-12-09 11:30] VITALS: BP 104/92; PULSE 80; RESP 20; TEMP 36.7; O2SAT 95
[2022-12-09] MEDS: Enoxaparin Sodium 40 MG/0.4 ML SYRINGE SUBCUT (11:32)
--- NOTE | 2022-12-09 11:47 | P.DS_ITS ---
DS: Providers Provider Date of Service: 12/09/22 Date of admission: 11/29/22 23:16 Primary care physician: CLIF Hanley Consults: 11/29/22 23:15 Consult to Urology Routine Consulting Provider: Rod Phillips Reason for consultation: Hydronephrosis, obstructing uropathy Has provider been notified: No 12/03/22 10:40 Consult to Infectious Diseases [place]ine [place] [facility] [place] [facility] [place] Reason for consultation: staph aureus bacteremia DS: Diagnosis Discharge Diagnosis (1) Renal calculus, right: Status: Acute (2) Hydronephrosis: Status: Acute (3) Acute unilateral obstructive uropathy: Status: Acute (4) Acute kidney injury: Status: Acute DS: Summary Hospital Course Hospital Course: from initial hpi: 67-year-old male with past medical history of BPH, who comes into the hospital with complaints of generalized weakness, nausea, vomiting, abdominal pain, chills, urinary symptoms.? States that his urinary symptoms? started on Thursday, horses home past 2 days.? Patient states that he was diagnosed with UTI on Thursday by his urologist, and he received antibiotics took a dose on Thursday and Thursday but today he started having nausea vomiting, and right flank pain therefore decided to come to the hospital. Patient reports chills, no diarrhea or constipation, no urinary symptoms and no lower extremity edema, no headache or change in vision, no numbness tingling or weakness On arrival to the ED patient hemodynamically stable with a slightly elevated heart rate Labs are significant for WBC count of 14.8, creatinine of 1.95 with a baseline of around 1.05, lactic of 3.0 improved after IV fluids, UA positive for leukocyte Estrace, nitrites, WBC Abdomen pelvic CT shows severe right renal hydronephrosis and moderate right hydroureter, heavy calcification is seen encasing the proximal and distal ends of the ureteral stent, bilateral nonobstructing renal calculi There is also evidence of possible atelectasis ?? On chest CT ED discussed case with Urology, plan for possible surgical intervention on Thursday hospital course: Patient was admitted for sepsis and acute kidney injury due to acute right-sided hydronephrosis with obstructing stone complicated by MSSA bacteremia. His CLAUS resolved. He underwent ureteral stent exchange with Urology. Kidney culture grew Enterococcus/strep species. Blood cultures grew MSSA. Repeat were negative. Plan is for 4 weeks of IV cefazolin to and on 12/31/2022. He will follow up outpatient with ID and urology. For BPH he was continued on Proscar. Time Spent with Patient Time attestation: Total time managing care of this patient today ____ minutes. Discharge coordination time: Greater than 30 minutes Quality: Safe Use of Opioids Does Pt have an Active Cancer Diagnosis on the Problem List?: No Quality: Stroke Does the patient have a stroke diagnosis?: No Physical Exam Vital Signs: Vital Signs: Last Vital Signs Temp 98.1 F 12/09/22 11:30 Pulse 80 12/09/22 11:30 Resp 20 12/09/22 11:30 BP 104/92 H 12/09/22 11:30 Pulse Ox 95 12/09/22 11:30 O2 Del Method Room Air 12/09/22 11:30 O2 Flow Rate 2 12/01/22 23:02 BMI result Body Mass Index 24.3 General: AO X 3, no acute distress Resp: CTA bilateral, no accessory muscles used CVS: S1,S2,RRR GI: soft, non tender, non distended Neuro: motor grossly intact, alert Psych: appropriate affect, appropriate insight DS: Data Data Completed and Pending Completed studies during hospitalization [Text1]: Pending at discharge 12/01/22 21:07 Surgical [PTH] Routine Discharge Plan Discharge Anticipated Discharge Date/Time: 12/09/22 11:44 Patient Disposition: Home Health Service Discharge Diagnosis: mssa bacteremia Referrals: Rod Phillips MD [Physician] - 1 Week Clyde Bruner FNP- [Primary Care Provider] - 1 Week Aracely Pedersen MD [Physician] - 1 Week Discharge Medications: New cefazolin in dextrose (iso-os) 2 gram/50 mL Piggyback 2 g IV Q8H Qty: 0 0RF Continued finasteride 5 mg tablet 5 mg PO DAILY 90 Days Qty: 90 1RF multivitamin Tablet 1 tab PO DAILY zinc acetate 50 mg (zinc) Capsule 50 mg PO DAILY ascorbic acid (vitamin C) [Vitamin C] 500 mg Tablet 500 mg PO DAILY cholecalciferol (vitamin D3) [Vitamin D3] 50 mcg (2,000 unit) Tablet 50 mcg PO DAILY Discontinued levofloxacin 500 mg tablet 500 mg PO DAILY 5 Days Qty: 5 0RF Rx Instructions: START DATE: 11/28/22; END DATE: 12/02/22 Discharge Orders: Discharge Order (Routine); Ordered 12/09/22 Ordered By: Michael Jc Diet: Advance to usual diet Activity on Discharge: As tolerated Stand Alone Forms: Patient Portal Discharge page Care Plan Goals: recovery Health Concerns: mssa Plan of Treatment: ancef until december 31, follow up with RANDI TODD Assessment: see above
[2022-12-09 15:28] VITALS: BP 111/64; PULSE 77; RESP 20; TEMP 36.4; O2SAT 97
--- NOTE | 2022-12-09 18:20 | HO.MIDLINE ---
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 Using ultrasound guidance, right basilic vein access was obtained on first attempt. 20G X 10CM Non-PASV ST Midline was positioned. The procedure was performed in S272. Ultrasound was used to document vein patency and for needle entry. A formal ultrasound picture was recorded. V[employer] Support Specialist has released the line for use and it is currently dressed with a StatLock, Tegaderm, and CHG disc. Verification has been performed for blood return and line patency. Arm Circumference: 31.5 CM Equipment: BARD PowerGlide ST Midline Catheter Type: 20G X 10CM Non-PASV Midline Lot #: [id number]
== END 2022-12-09 18:30 | disposition home health service (06) | DRG 710 ==
LOC: HO.ED 22:41 → HO.EDOVER 23:20 → HO.S3 11-30 10:30
PROVIDERS: Physician Assistant; Physician Assistant Medical; Radiology Diagnostic Radiology; Student in an Organized Health Care Education/Training Program; Urology; Admitting Provider Internal Medicine; Emergency Provider Emergency Medicine; PCP Nurse Practitioner Family; Visit Provider Internal Medicine
PROC: 0TC68ZZ Extirpation of Matter from Right Ureter, Via Natural or Artificial Opening Endoscopic (ICD-10-PCS; principal; 2022-12-01 14:30)
DX: A41.9 Sepsis, unspecified organism (principal); N17.9 Acute kidney failure, unspecified; N13.6 Pyonephrosis; N13.8 Other obstructive and reflux uropathy; R31.9 Hematuria, unspecified; N21.0 Calculus in bladder; B95.2 Enterococcus as the cause of diseases classified elsewhere; B95.61 Methicillin susceptible Staphylococcus aureus infection as the cause of diseases classified elsewhere; N40.1 Benign prostatic hyperplasia with lower urinary tract symptoms; Z20.822 Contact with and (suspected) exposure to COVID-19; Z87.891 Personal history of nicotine dependence; Z79.899 Other long term (current) drug therapy
CPT/HCPCS: 36410; 36415; 71046; 71250; 74176; 80048; 80053; 81001; 83605; 83735; 84484; 85025; 85027; 87040; 87070; 87077; 87186; 87205; 87635; 88300; 93005; 99285; C1751; C1758; C1769; C2617; J0690; J0696; J1100; J1650; J1885; J2405; J3010; Q9967

== ENCOUNTER 2023-01-02 11:23 | Outpatient (REF) | payer OTHER, SELFPAY ==
[2023-01-02 13:40] LABS: Appearance Urine Cloudy; Color Urine Yellow; Glucose Urine UA Negative (Negative); Leukocyte Esterase Urine Large (3+) (Negative); Nitrite Urine Negative (Negative); PH 5.5 (5.0-9.0); UMIC TRIGGER UACC YES; Urine Blood Moderate (2+) (Negative); Urine Ketones Trace mg/dL (Negative); Urine Protein 30 (1+) mg/dL (Neg-Trace)
[2023-01-02 13:45] LABS: Bacteria Urine None Seen (None Seen); Squamous Epithelial Cell Urine 0-2 /HPF (0-2); UACC Culture Trigger YES; WBC Urine >50 /HPF (0-5)
== END 2023-01-02 11:24 | disposition home or self-care (01) ==
LOC: HO.LAB 11:23
PROVIDERS: Physician Assistant Medical; PCP Nurse Practitioner Family; Visit Provider Internal Medicine
DX: R78.81 Bacteremia (principal); B95.61 Methicillin susceptible Staphylococcus aureus infection as the cause of diseases classified elsewhere
CPT/HCPCS: 81001; 87040; 87086

== ENCOUNTER 2023-01-07 05:53 | Day surgery (SDC) | payer OTHER, SELFPAY ==
[2022-12-19 13:55] VITALS: BMI 24.1
--- NOTE | 2023-01-06 11:03 | P.CONAN_ITS ---
Documented by User: Almaz Ojeda NP 01/06/23 11:05 HPI - Anesthesia Eval Consult details Narrative: 68yo M for Right Lithotripsy ESW s/p cysto etc 11/2022 with GA-LMA 5 PMFSH Active Problems Active Problems: All Active Problems (Updated 12/19/22 @ 13:58 by Hope Steiner, DAV) BPH w urinary obs/LUTS (Acute) UTI (urinary tract infection), bacterial (Acute) Gross hematuria (Acute) Varicose vein of leg (Acute) Elevated PSA (Acute) Varicose veins of left lower extremity with inflammation (Acute) Varicose veins of right lower extremity with inflammation (Acute) Acute unilateral obstructive uropathy (Acute) Urinary tract infection (Acute) Sepsis (Acute) Blockage of stent of ureter (Acute) Hydronephrosis (Acute) Renal calculus, right (Acute) Acute kidney injury (Acute) Bladder stones (Acute) Pyelonephritis (Acute) MSSA bacteremia (Acute) Past Medical History Medical History (Updated 01/07/23 @ 07:16 by Rose Maldonado MD) Acute kidney injury BPH (benign prostatic hyperplasia) Detached retina Hernia Kidney stones MSSA bacteremia PICC (peripherally inserted central catheter) in place Pyelonephritis Ureteral stent present Family History Family History Sister Melanoma Family history of problems with anesthesia: No Surgical History Surgical History History of cystoscopy History of eye surgery History of prostate surgery History of umbilical hernia repair Hx of varicose vein ligation History of Problems with Anesthesia: No Social History Social History Household Members: Spouse Are you a primary personal care service provider to a significant other at home: No Do you presently have visiting nurse or other home services: No Alcohol intake: never Patient Tobacco Use Status: Former Tobacco user Quit Date: 20 years ago Tobacco use type: Cigarette e-Cigarette/Vaping Use: Former Use Second Hand Smoke Exposure: No Use of substances other than those prescribed or required for medical reasons: No Have you been hit, kicked, punched, or otherwise hurt by someone within the past year? If so, by whom?: No Are you DNR?: No Advance Directives: No Advance Directives Information Provided: No Advance Directives on File: No Recently lost weight without trying: No Eating poorly because of decreased appetite: No Nutrition Risks: No Nutritional Risk Poor oral hygiene: No (1 Implant) service: No Current occupational status: employed Meds Allergies Allergy/AdvReac Type Severity Reaction Status Date / Time No Known Allergies Allergy Verified 01/02/23 11:40 Home Medications Medication Instructions Recorded Confirmed Last Taken Type ascorbic acid (vitamin C) 500 mg 500 mg PO DAILY 11/29/22 01/07/23 01/06/23 History tablet (Vitamin C) cholecalciferol (vitamin D3) 50 50 mcg PO DAILY 11/29/22 01/07/23 01/06/23 History mcg (2,000 unit) tablet (Vitamin D3) multivitamin 1 tab PO DAILY 11/29/22 01/07/23 01/06/23 History zinc acetate 50 mg (zinc) capsule 50 mg PO DAILY 11/29/22 01/07/23 01/06/23 History Exam Exam Date and Time: January 06, 2023 1103 Height,Weight and Vital Signs: Height 6 ft 1 in Weight 83.007 kg Pertinent Lab Results Pertinent Lab Results: Laboratory Tests 12/04/22 12/04/22 08:20 08:20 WBC 12.2 H Hgb 12.6 L Hct 37.9 L Plt Count 322 D Sodium 136 Potassium 4.2 Chloride 104 Carbon Dioxide 24 BUN 18 H Creatinine 1.35 Narrative Narrative: EKG 11/2022 Vent. Rate : 099 BPM ? ? Atrial Rate : 099 BPM ?? P-R Int : 176 ms? QRS Dur : 104 ms ? ? QT Int : 364 ms ? ? ? P-R-T Axes : 047 063 042 degrees ?? QTc Int : 467 ms ? Normal sinus rhythm Normal ECG When compared with ECG of 21-APR-2022 17:31, Premature atrial complexes are no longer Present MT interval has decreased Vent. rate has increased BY? 47 BPM Assessment and Plan Assessment Anesthesia Assessment: Chart Reviewed Final Anesthetic Review Family History of Problems with Anesthesia: No History of Problems with Anesthesia: No Documented by User: Rose Maldonado MD 01/07/23 07:23 [facility] Active Problems Active Problems: All Active Problems (Updated 01/07/23 @ 13:58 by Rose Maldonado MD) BPH w urinary obs/LUTS (Acute) UTI (urinary tract infection), bacterial (Acute) Gross hematuria (Acute) Varicose vein of leg (Acute) Elevated PSA (Acute) Varicose veins of left lower extremity with inflammation (Acute) Varicose veins of right lower extremity with inflammation (Acute) Acute unilateral obstructive uropathy (Acute) Urinary tract infection (Acute) Blockage of stent of ureter (Acute) Hydronephrosis (Acute) Renal calculus, right (Acute) Bladder stones (Acute) MSSA bacteremia (Acute) Past Medical History Medical History (Updated 01/07/23 @ 07:16 by Rose Maldonado MD) Acute kidney injury BPH (benign prostatic hyperplasia) Detached retina Hernia Kidney stones MSSA bacteremia PICC (peripherally inserted central catheter) in place Pyelonephritis Ureteral stent present Family History Family History Sister Melanoma Surgical History Surgical History History of cystoscopy History of eye surgery History of prostate surgery History of umbilical hernia repair Hx of varicose vein ligation Social History Social History Household Members: Spouse Are you a primary personal care service provider to a significant other at home: No Do you presently have visiting nurse or other home services: No Alcohol intake: never Patient Tobacco Use Status: Former Tobacco user Quit Date: 20 years ago Tobacco use type: Cigarette e-Cigarette/Vaping Use: Former Use Second Hand Smoke Exposure: No Use of substances other than those prescribed or required for medical reasons: No Have you been hit, kicked, punched, or otherwise hurt by someone within the past year? If so, by whom?: No Are you DNR?: No Advance Directives: No Advance Directives Information Provided: No Advance Directives on File: No Recently lost weight without trying: No Eating poorly because of decreased appetite: No Nutrition Risks: No Nutritional Risk Poor oral hygiene: No (1 Implant) service: No Current occupational status: employed Meds Allergies Allergy/AdvReac Type Severity Reaction Status Date / Time No Known Allergies Allergy Verified 01/02/23 11:40 Home Medications Medication Instructions Recorded Confirmed Last Taken Type ascorbic acid (vitamin C) 500 mg 500 mg PO DAILY 11/29/22 01/07/23 01/06/23 History tablet (Vitamin C) cholecalciferol (vitamin D3) 50 50 mcg PO DAILY 11/29/22 01/07/23 01/06/23 History mcg (2,000 unit) tablet (Vitamin D3) multivitamin 1 tab PO DAILY 11/29/22 01/07/23 01/06/23 History zinc acetate 50 mg (zinc) capsule 50 mg PO DAILY 11/29/22 01/07/23 01/06/23 History Exam Height,Weight and Vital Signs: Height 6 ft 1 in Weight 83.007 kg Vital Signs Temp Pulse Resp BP Pulse Ox O2 Del Method 01/07/23 06:32 97.4 F 75 16 115/77 97 Room Air Airway Mallampati Class: II TM Dist: >3cm Neck ROM: Full Loose/Missing/Broken Teeth: No (Denies broken, loose, missing teeth) Heart: RRR Lungs: CTAB Assessment and Plan Assessment Anesthesia Assessment: Anesthesia Plan Discussed Final Anesthetic Review NPO: Yes ASA Class: II Final Preanesthetic Review: No Changes in Pt Med Stat, Meds/Allgs Chart Reviewed, Consent Obtained/Reviewed and Anes Risks/Benef Reviewed Patient Risk: Low Procedure Risk: Low Assessment/Block/Sedation in SS: Assess/Block/Sedation-SS Anesthetic Plan Anesthetic Plan: GA and MAC: Disposition: Standard PACU
--- NOTE | ~2023-01-07 | XR_ITS ---
EXAMINATION: XR ABDOMEN KUB CLINICAL INDICATION: Right kidney stone COMPARISON: CT abdomen/pelvis dated 11/29/2022 TECHNIQUE: AP view of the abdomen. FINDINGS: There are 2 right nephroureteral stents. Multiple large calculi redemonstrated in the lower pole of the right kidney, right renal pelvis, proximal right ureter and bladder. Nonobstructive bowel gas pattern. No acute osseous abnormalities. XR/XR KUB IMPRESSION: Multiple large calculi redemonstrated in the lower pole of the right kidney, right renal pelvis, proximal right ureter and bladder.
[2023-01-07 06:32] VITALS: BP 115/77; PULSE 75; RESP 16; TEMP 36.3; O2SAT 97
[2023-01-07] MEDS: Lactated Ringers 1,000 ML 100 ML IVCONT (07:09)
--- NOTE | 2023-01-07 07:42 | MHC.SHP ---
Pre-Procedural Eval Section A Date of Service: 01/07/23 The patient is an INPATIENT: No Changes since office visit: No Cold of Flu in the past 2 weeks, No New Medical Problems, No Changes in Medication and No Patient answered all questions The History & Physical has been completed within 30 days and I have reviewed it.: Yes Section B Chief Complaint: Calculus of kidney Details of Present Illness: Right indwelling stent with calcification Relevant Family History (Specify if Yes): No Relevant Social History: None Present Medications: see Short Stay Collaborative assessment Medical History: No relevant PMH History of Previous Operations: Relevant previous surgery/procedure and date(s) Allergies: Allergies Allergy/AdvReac Type Severity Reaction Status Date / Time No Known Allergies Allergy Verified 01/02/23 11:40 Review of Systems Sugical H&P ROS: Negative: Constitution, Cardiovascular, Respiratory, Neurological, Psychiatric, Hem-Onc, Allergic/Immunologic, Gastrointestinal, Genitourinary, Musculoskeletal, Integumentary, Endocrine and Eyes/Ears/Nose/Throat Exam Surgical H&P Exam: Normal: HEENT, Normal: Heart, Normal: Lungs, Normal: Extremities, Normal: Abdomen, Normal: Skin and Normal: Neurological Plan Diagnosis/Plan: Unchanged (Right ESWL of indwelling stent) I have reviewed the history and physical and performed a pertinent physical examination on my patient. No changes have occurred unless specified. Time Spent With Patient Time: Total time managing care of this patient today ____ minutes.
--- NOTE | 2023-01-07 07:56 | W.PM.OPN ---
Operative Note Operative Note Date of Service: 01/07/23 Narrative: PreOperative Diagnosis: right Renal stones on retained stent Post Operative Diagnosis: right Renal stones on retained stent Procedure: right ESWL Surgeon: Dr Rod Phillips Anesthesia: mac/sedation Indications for procedure: The patient understands ESWL may be a staged procedure and subsequent intervention may be required based on imaging after ESWL. Quoted stone clearance rates for a solitary procedure are in the 70-80% range based primarily on stone location. They also understand there is a risk of bleeding to the kidney, infection, damage to adjacent organs, and stone migration following the procedure. - Imaging stone around retained right stent Procedure: After informed consent was verified the patient was brought to the operating room and placed in a supine position. Anesthesia was performed per protocol. Safety pause time-out was performed. Imaging was displayed in the room and laterality confirmed. ESWL was performed. The 1st 500 shocks were performed at 60 hertz. These were performed with increasing power. Once maximum power was reached the rate was increased to 180 hertz. A total of 2500 shocks were given. Targeted imaging with ultrasound/fluoroscopy showed stone smudging suggestive of disintegration. At the completion of procedure cystoscopy was performed. Stents were removed sequentially. They were able to be totally removed and now will not be a nidus for stone The patient tolerated the procedure well and was transferred to the recovery area upon completion. Post procedure imaging will be organized. There was no evidence for flank discoloration.
[2023-01-07 08:46] VITALS: BP 106/60; PULSE 86; RESP 16; TEMP 36.9; O2SAT 97
[2023-01-07] MEDS: Phenazopyridine HCL 100 MG TABLET PO (08:51)
[2023-01-07] MEDS: Acetaminophen 325 MG TABLET 650 MG PO (08:51)
[2023-01-07] MEDS: Ketorolac Tromethamine 15 MG/ML VIAL IVPUSH (08:52)
[2023-01-07 09:01] VITALS: BP 126/76; PULSE 60; RESP 16; O2SAT 96
[2023-01-07 09:16] VITALS: BP 127/87; PULSE 70; RESP 16; O2SAT 98
== END 2023-01-07 09:45 | disposition home or self-care (01) ==
PROVIDERS: PCP Nurse Practitioner Family; Visit Provider Urology
PROC: (CPT 50590; principal; 2023-01-07 07:30)
DX: N20.0 Calculus of kidney (principal); Z96.0 Presence of urogenital implants
CPT/HCPCS: 50590; 52310; 74018; J1885; J2250; J2405; J3010

== ENCOUNTER 2023-02-12 15:50 | Outpatient (AMB) | payer OTHER, SELFPAY ==
--- NOTE | 2023-02-12 16:13 | A.OFFPC_ITS ---
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 Will order labs. Pt follows up with urology and vascular. Due for colon screen, will refer to GI. [facility] Medical History (Updated 03/24/23 @ 08:32 by Clyde Bruner, [facility]) Acute kidney injury BPH (benign prostatic hyperplasia) Detached retina Hernia Kidney stones MSSA bacteremia Myxomatous mitral valve PICC (peripherally inserted central catheter) in place Pyelonephritis Ureteral stent present Surgical History History of cystoscopy History of eye surgery History of prostate surgery History of umbilical hernia repair Hx of varicose vein ligation Family History Sister Melanoma Social History Household Members: Spouse Housing: House Are you a primary career information specialist to a significant other at home: No Do you presently have visiting nurse or other home services: No Alcohol intake: never Patient Tobacco Use Status: Former Tobacco user Quit Date: 20 years ago Tobacco use type: Cigarette e-Cigarette/Vaping Use: Former Use Second Hand Smoke Exposure: No service: No Current occupational status: employed Cognitive needs: No Hearing needs: No Vision needs: Yes Questionnaire PHQ-9 Over the last 2 weeks, how often have you been bothered by any of the following problems? 1. Little interest or pleasure in doing things: not at all 2. Feeling down, depressed, or hopeless: not at all 3. Trouble falling or staying asleep, or sleeping too much: several days 4. Feeling tired or having little energy: not at all 5. Poor appetite or overeating: not at all 6. Feeling bad about yourself - or that you are a failure or have let yourself or your family down: not at all 7. Trouble concentrating on things, such as reading the newspaper or watching television: not at all 8. Moving or speaking so slowly that other people could have noticed. Or the opposite - being so fidgety or restless that you have been moving around a lot more than usual: not at all 9. Thoughts that you would be better off or of hurting yourself in some way: not at all Total score: 1 Depression Screening Interpretation: Negative 29564 - PHQ-9 Billing: Yes Source: Developed by Drs. Chetan Brewer, Estrellita Nuñez, Jt Lorenzo and colleagues, with an educational ozzy from [employer]. Thrive Questionnaire Date Thrive assessed: 02/12/23 I am a: Patient What is your living situation today?: I have a steady place to live Within the past 12 months, did the food you bought not last and you didn't have the money to get more?: Never true Within the past 12 months, did you worry whether your food would run out before you got money to buy more?: Never true Do you have trouble paying for medicines?: No Do you have trouble getting transportation to medical appointments?: No Do you have trouble paying your heating and electricity bill?: No Do you have trouble taking care of your child, family member or friend?: No Do you have trouble with day-to-day activities such as bathing, preparing meals, shopping, managing finances, etc.?: No Are you currently unemployed and looking for a job?: No Are you interested in more education?: Yes AUDIT C Alcohol Use Questionnaire (AUDIT-C) 1. How often do you have a drink containing alcohol?: Never 3. How often do you have six or more drinks on one occasion?: Never Total Score: 0 Score Reviewed/Action Taken: No MAHESH-7 AMB Questionnaire MAHESH-7 Date MAHESH - 7 assessed: 02/12/23 Feeling nervous, anxious, or on edge: 0 = Not at all Not being able to stop or control worryin = Not at all Worrying too much about different things: 1 = Several days Trouble relaxin = Not at all Being so restless that it is hard to sit still: 0 = Not at all Becoming easily annoyed or irritable: 0 = Not at all Feeling afraid as if something awful might happen: 0 = Not at all Total MAHESH-7 score (0-4 normal; 5-9 mild; 10-14 moderate; 15-21 severe): 1 Source: Developed by Drs. Chetan Brewer, Estrellita Nuñez, Jt Lorenzo and colleagues, with an educational ozzy from [employer]. MAHESH-7 Assessment Billing MAHESH-7 Assessment Tool: MAHESH-7 Assessment 21928 Review of Systems Const Denies chills and Denies fever(s) Eyes Denies blurry vision ENT Denies vertigo, Denies dizziness and Denies sore throat Card Denies chest pain at rest, Denies chest pain with activity, Denies diaphoresis, Denies dyspnea and Denies dyspnea on exertion Resp Denies cough, Denies dyspnea, Denies dyspnea on exertion and Denies wheezing GI Denies abdominal pain, Denies melena, Denies hematochezia, Denies constipation, Denies diarrhea and Denies loose stools Denies hematuria Musc Denies numbness and Denies tingling Skin/Breast Denies lesions Neuro Denies vertigo, Denies dizziness, Denies numbness and Denies tingling Psych Denies anxiety, Denies depression, Denies homicidal ideation, Denies suicidal ideation and Denies other (substance abuse) Aller/Immun Denies wheezing Physical exam (Primary Care) Vital Signs: Last Vital Signs Pulse 66 02/12/23 16:15 BP 130/70 02/12/23 16:15 Pulse Ox 99 02/12/23 16:15 Oxygen Delivery Method Room Air 02/12/23 16:15 BMI result Body Mass Index 23.0 Tobacco/Smoking Status: Tobacco use Status Tobacco use date assessed 02/12/23 02/12/23 16:18 Patient Tobacco Use Status Former Tobacco user 02/12/23 16:18 Tobacco use type Cigarette 02/12/23 16:18 e-Cigarette/Vaping Use Former Use 02/12/23 16:18 PHQ-9: PHQ-9 Score PHQ-9: Total score 1 02/12/23 16:47 Depression Screening Interpretation: Negative Thrive Assessment: Date of Thrive Assessment Date Thrive assessed 02/12/23 02/12/23 16:47 Const General: cooperative Nutritional Appearance: well nourished Orientation/consciousness: patient oriented x3 HENMT Head: Yes normal to inspection, Yes normocephalic and Yes atraumatic Ears: TM's normal bilaterally Eyes General: appearance normal, both eyes and all related structures Alignment and Position: alignment normal and position normal Neck Neck: Yes normal visual inspection and Yes no lymphadenopathy Thyroid: Thyroid normal Resp Effort & Inspection: normal respiratory effort Auscultation: clear to auscultation bilaterally Cardio Rate: regular rate Rhythm: regular rhythm Heart sounds: S1 normal heart sound present, S2 normal heart sound present and Murmur heart sound present systolic GI Palpation (GI): Soft to palpation and nontender Auscultation: normal bowel sounds Male General Exam: Yes normal external exam Penis: normal penis Scrotum: scrotum normal, testes descended bilaterally and no inguinal hernias Testes: no testicular mass Skin Rashes: no rashes Neuro General: patient oriented x3, moves all extremities, no focal motor deficits and deep tendon reflexes 2+ bilaterally Romberg Test: Negative Psych Appearance: grossly normal Mental Status: mental status grossly normal Speech and movement: Normal speech and movement present Affect: normal affect Attitude: cooperative Thought process: Normal thought process present Thought content: Normal thought content present Insight: Good insight present (Psych) Judgement: Good judgement present (Psych) Assessment and Plan Assessment & Plan (1) Physical exam: Code(s): Z00.00 - Encounter for general adult medical examination without abnormal findings Plan: Labs ordered (2) Screening for colon cancer: Code(s): Z12.11 - Encounter for screening for malignant neoplasm of colon Plan: Referred to GI (3) Systolic murmur: Code(s): R01.1 - Cardiac murmur, unspecified Plan The patient agreed to the use of a medical legal investigator for this encounter. Scribed for CLIF Dixon by Rae Beckham medical legal investigator, on 02/12/2023 at 16:30 EST. Orders: Orders Comprehensive [place]. Panel Fast 02/12/23 Z00.00 - Encounter for general adult medical examination without abnormal findings Lipid Panel 06/22/23 Z00.00 - Encounter for general adult medical examination without abnormal findings TSH reflex Free T4 02/12/23 Z00.00 - Encounter for general adult medical examination without abnormal findings Complete Blood Count Auto Diff 02/12/23 Z00.00 - Encounter for general adult medical examination without abnormal findings UA CC w/rflx Micro + Cult 02/12/23 Z00.00 - Encounter for general adult medical examination without abnormal findings CA echo transthoracic complete 02/12/23 R01.1 - Cardiac murmur, unspecified Referrals Gastroenterology Referral Z12.11 - Encounter for screening for malignant neoplasm of colon Coding Level of Care Code New Pt Prev Care >65yr (47695) Diagnoses Physical exam Z00.00 Screening for colon cancer Z12.11 Systolic murmur R01.1 Additional Codes MAHESH-7 Assessment Billing - MAHESH-7 Assessment Tool: MAHESH-7 Assessment [id number] ([id number])
[2023-02-12 16:15] VITALS: BP 130/70; PULSE 66; O2SAT 99; BMI 23.0
== END 2023-02-12 16:41 | disposition home or self-care (01) ==
PROVIDERS: Visit Provider Nurse Practitioner Family
DX: Z00.00 Encounter for general adult medical examination without abnormal findings (principal); R01.1 Cardiac murmur, unspecified
CPT/HCPCS: 99387

== ENCOUNTER 2023-02-18 15:47 | Outpatient (REF) | payer OTHER, SELFPAY ==
--- NOTE | ~2023-02-18 | US_ITS ---
EXAMINATION: US RETROPERITONEAL LIMITED (RENAL ONLY) CLINICAL INFORMATION: Calculus of kidney. COMPARISON: X-ray KUB 01/07/2023. CT abdomen and pelvis 11/29/2022. TECHNIQUE: Real-time imaging of the kidneys. FINDINGS: RIGHT KIDNEY: 12.5 x 5.2 x 5.2 cm (SAG x AP x TRV). The kidney is normal in size, contour, and echogenicity. Renal cortical thickness is normal. No focal parenchymal lesions or hydronephrosis. At the interpolar aspect, a 1.1 cm nonobstructing calculus is seen. At the lower pole, a 4 mm nonobstructing calculus is seen. A 1.2 cm mid right ureteric calculus is seen. There is equivocal right hydroureter. LEFT KIDNEY: 11.6 x 5.4 x 5.7 cm (SAG x AP x TRV). The kidney is normal in size, contour, and echogenicity. Renal cortical thickness is normal. No focal parenchymal lesions or hydronephrosis. At the interpolar aspect, a 3 mm nonobstructing calculus is seen. BLADDER: The bladder is thin-walled, without mass or nodule. Within the posterior bladder, a 1.0 cm shadowing calculus is seen. In the vicinity of the left ureterovesicular junction, a 1.5 cm shadowing calculus is seen. Bilateral ureteral jets are not demonstrated. US/US renal BI IMPRESSION: 1. Multiple bilateral renal calculi are seen, as detailed. There is no hydronephrosis. 2. A 1.2 cm mid right ureteric calculus seen. Right ureterectasis is suspected. 3. There are bladder calculi.
== END 2023-02-18 15:48 | disposition home or self-care (01) ==
LOC: HO.US 15:47
PROVIDERS: PCP Nurse Practitioner Family; Visit Provider Urology
DX: N20.0 Calculus of kidney (principal)
CPT/HCPCS: 76775

== ENCOUNTER → 2023-02-19 09:17 | Outpatient (BNVA) | payer OTHER, SELFPAY | PROVIDERS: PCP Nurse Practitioner Family; Visit Provider Surgery Vascular Surgery ==

== ENCOUNTER 2023-03-05 09:20 | Outpatient (REF) | payer OTHER, SELFPAY ==
[2023-03-05 11:08] LABS: MANUAL DIFF FLAG NO
[2023-03-05 11:30] LABS: Appearance Urine Turbid; Color Urine Yellow; Glucose Urine UA Negative (Negative); Leukocyte Esterase Urine Large (3+) (Negative); Nitrite Urine Positive (Negative); PH 6.5 (5.0-9.0); UMIC TRIGGER UACC YES; Urine Blood Small (1+) (Negative); Urine Ketones Negative (Negative); Urine Protein 30 (1+) mg/dL (Neg-Trace)
[2023-03-05 11:32] LABS: Basophils Absolute Auto 0.1 X10*3/uL (0.0-0.2); Basophils Percent Auto 1.1 % (0-2); Eosinophils Absolute Auto 0.1 X10*3/uL (0.0-0.4); Eosinophils Percent Auto 1.8 % (0-4); Hematocrit 42.4 % (42.0-52.0); Hemoglobin 13.6 g/dl (14.0-18.0); Lymphocytes Percent Auto 36.9 % (20-40); Mean Corpuscular HGB Conc 32.1 g/dl (31.0-36.0); Mean Corpuscular Hemoglobin 26.4 pg (27.0-33.0); Mean Corpuscular Volume 82.2 fL (80.0-98.0); Mean Platelet Volume 10.2 fL (9.4-12.4); Monocytes Absolute Auto 0.4 X10*3/uL (0.1-1.2); Monocytes Percent Auto 7.5 % (2-11); Neutrophils Absolute Auto 2.9 x10*3/uL (2.0-8.3); Neutrophils Percent Auto 52.7 % (45-73); Platelet Count 286 X10*3/uL (160-400); Red Blood Count 5.16 X10*6/uL (4.60-5.80); Red Cell Distribution Width 15.3 % (11.0-16.0); White Blood Count 5.5 X10*3/uL (4.8-10.8)
[2023-03-05 12:00] LABS: Bacteria Urine 4+ (None Seen); Hyaline Casts Urine 0-2 /LPF (0-2); Squamous Epithelial Cell Urine 0-2 /HPF (0-2); UACC Culture Trigger YES; WBC Clumps Urine Present; WBC Urine >50 /HPF (0-5)
[2023-03-05 12:19] LABS: Alanine Aminotransferase 21 U/L (0-40); Albumin Level 4.4 g/dL (3.5-5.0); Alkaline Phosphatase 55 U/L (39-117); Anion Gap 11 (12-20); Aspartate Amino Transferase 18 U/L (5-37); Bilirubin Total 0.7 mg/dL (0.0-1.0); Blood Urea Nitrogen 28 mg/dL (9-16); Calcium 9.7 mg/dL (8.4-10.2); Carbon Dioxide 26 mmol/L (22-29); Chloride 110 mmol/L (96-108); Cholesterol 216 mg/dL; Estimated Glomerular Filt Rate > 60; Glucose Fasting 99 mg/dL (60-99); HDL Cholesterol 70 mg/dL; LDL Cholesterol Calculated 137 mg/dl; Potassium 4.5 mmol/L (3.3-5.1); Sodium 142 mmol/L (135-145); TSH reflex Free T4 2.67 uIU/mL (0.32-4.0); Total Protein 7.4 g/dL (6.5-8.0); Triglycerides 47 mg/dL
[2023-03-05 13:07] LABS: PSA,Total (Free>4and<10) 8.52 ng/mL (0.00-4.00)
[2023-03-06 10:43] LABS: Free Prostate Spec Ag 1.3 ng/mL; Percent Free Prostate Spec Ag 15 % (calc) (>25); Prostate Specific Ag Total 8.4 ng/mL (< OR = 4.0)
== END 2023-03-05 09:21 | disposition home or self-care (01) ==
LOC: HO.HMGCLDS 09:20
PROVIDERS: Urology; PCP Nurse Practitioner Family; Visit Provider Nurse Practitioner Family
DX: Z00.00 Encounter for general adult medical examination without abnormal findings (principal); Z12.5 Encounter for screening for malignant neoplasm of prostate; R97.20 Elevated prostate specific antigen [PSA]; R82.90 Unspecified abnormal findings in urine
CPT/HCPCS: 36415; 80053; 80061; 81001; 84153; 84154; 84443; 85025; 87086

== ENCOUNTER 2023-03-19 11:12 | Outpatient (AMB) | payer OTHER, SELFPAY ==
--- NOTE | 2023-03-19 11:13 | A.OFFVIS_ITS ---
Intake Intake Visit Reasons: 6w/US(set) Intake Note: Patient is present for Telephone Follow Up Urology Med:Finasteride Antibiotic Allergy:none Blood Thinner: None Allergies No Known Allergies Allergy (Verified 03/19/23 11:15) Medication List - Last Reconciled 03/19/23 by Rod Phillips MD ascorbic acid (vitamin C) (Vitamin C) 500 mg PO DAILY cholecalciferol (vitamin D3) (Vitamin D3) 50 mcg PO DAILY finasteride 5 mg PO DAILY 90 days multivitamin 1 tab PO DAILY zinc acetate 50 mg PO DAILY HPI HPI Comments History of Present Illness Details Sancho is a pleasant male. He is a patient of Dr. Davis. He seen for the following urologic conditions - BPH - gross hematuria - urinary tract infection Telemedicine Evaluation 15 min Consultation DoxzLense Nereyda Video attempted Continuing on finasteride PSA down to 11 Known 200 g prostate Continue to follow Elevated PSA - 16 KEREN soft 3+ Lower urinary tract symptoms Nocturia resolved and better emptying following procedure 04/14 GreenLight laser prostate Pathology - BPH, large prostate 200 gm - biopsy negative Gross hematuria with urinary tract infection Initial Presentation to emergency room Imaging - 11/12 CT scan large prostate with bladder wall thickening Microbiology - 11/12 Aerococcus urinae - sensitivity per Google search Augmentin PSA 03/14 16, 09/15 11, 03/15 8.4 15% Therapeutic plan - continue to follow [facility] Medical History Acute kidney injury BPH (benign prostatic hyperplasia) Detached retina Hernia Kidney stones MSSA bacteremia PICC (peripherally inserted central catheter) in place Pyelonephritis Ureteral stent present Surgical History History of cystoscopy History of eye surgery History of prostate surgery History of umbilical hernia repair Hx of varicose vein ligation Family History Sister Melanoma Social History Household Members: Spouse Housing: House Are you a primary home care and home health aides teacher to a significant other at home: No Do you presently have visiting nurse or other home services: No Alcohol intake: never Patient Tobacco Use Status: Former Tobacco user Quit Date: 20 years ago Tobacco use type: Cigarette e-Cigarette/Vaping Use: Former Use Second Hand Smoke Exposure: No service: No Current occupational status: employed Cognitive needs: No Hearing needs: No Vision needs: Yes Assessment & Plan Assessment & Plan (1) BPH w urinary obs/LUTS: Code(s): N40.1 - Benign prostatic hyperplasia with lower urinary tract symptoms; N13.8 - Other obstructive and reflux uropathy (2) Gross hematuria: Code(s): R31.0 - Gross hematuria Plan Six month follow-up repeat PSA Orders: Orders US renal BI 02/18/23 N20.0 - Calculus of kidney Prostate Specific Antigen 6 Months N13.8 - Other obstructive and reflux uropathy, N40.1 - Benign prostatic hyperplasia with lower urinary tract symptoms Medications: Refilled finasteride 5 mg PO DAILY 90 tabs 1RF 90 days N13.8 - Other obstructive and reflux uropathy, N40.1 - Benign prostatic hyperplasia with lower urinary tract symptoms, R33.9 - Retention of urine, unspecified Patient Instructions: Imaging studies, laboratory and physical exam results were discussed and reviewed in detail. No major barriers to patient understanding were identified. An opportunity to ask questions regarding the treatment plan was provided. All questions were answered. The patient expressed understanding and agreement with the above treatment plan. The patient is aware they should contact our office by phone for worsening of their current condition or the appearance of new urologic symptoms. Compliance is encouraged with any medications and followup testing that is ordered. It is a privilege to participate in the urologic care of your patient. If you have any questions or concerns regarding treatment for the above conditions, or other urologic issues, please do not hesitate to contact me. The office telephone contact is [phone]. This note is constructed using voice recognition software. While every effort has been made to ensure accuracy can bander operator errors may have been included. Yours sincerely, Dr Rod Phillips MD, [facility] - Urology Providers of Expert, Compassionate Care for the Genitourinary System Telehealth Telehealth Location of provider rendering services: practice address Location of patient: address on file Patient Identification confirmed using: Name, : Yes Telehealth method: voice only Patient verbally consented to treatment: Yes Patient verbally consented to billing insurance company: Yes Patient informed of any privacy concerns related to visit: Yes Coding Level of Care Code Tele Est Pt Level 3 (16760) Diagnoses BPH w urinary obs/LUTS N40.1; N13.8 Gross hematuria R31.0
== END 2023-03-19 14:18 | disposition home or self-care (01) ==
LOC: HO.HUSH 11:12
PROVIDERS: PCP Nurse Practitioner Family; Visit Provider Urology
DX: N40.1 Benign prostatic hyperplasia with lower urinary tract symptoms (principal); N13.8 Other obstructive and reflux uropathy; R31.0 Gross hematuria
CPT/HCPCS: 99213

== ENCOUNTER → 2023-03-19 11:12 | Outpatient (BNVA) | payer OTHER, SELFPAY | PROVIDERS: PCP Nurse Practitioner Family; Visit Provider Urology ==

== ENCOUNTER 2023-03-20 07:22 | Outpatient (AMB) | payer OTHER, SELFPAY ==
[2023-03-20 07:36] VITALS: BMI 23.0
--- NOTE | 2023-03-20 07:36 | MHC.OFFVIS ---
Intake Vital Signs 03/20/23 07:36 Height 6 ft 1 in Weight 174 lb BMI 23.0 Intake Visit Reasons: Right GSV Venaseal Allergies No Known Allergies Allergy (Verified 03/20/23 07:38) PFSH Medical History Acute kidney injury BPH (benign prostatic hyperplasia) Detached retina Hernia Kidney stones MSSA bacteremia PICC (peripherally inserted central catheter) in place Pyelonephritis Ureteral stent present Surgical History History of cystoscopy History of eye surgery History of prostate surgery History of umbilical hernia repair Hx of varicose vein ligation Family History Sister Melanoma Social History Household Members: Spouse Housing: House Are you a primary human services care specialist to a significant other at home: No Do you presently have visiting nurse or other home services: No Alcohol intake: never Patient Tobacco Use Status: Former Tobacco user Quit Date: 20 years ago Tobacco use type: Cigarette e-Cigarette/Vaping Use: Former Use Second Hand Smoke Exposure: No service: No Current occupational status: employed Cognitive needs: No Hearing needs: No Vision needs: Yes Physical Exam Vital Signs: BMI result Body Mass Index 23.0 Office Procedures Vascular Office Procedure Details Details: Diagnosis: Right Leg varicose veins with inflammation Procedure: Endovenous Ablation of the right Great Saphenous Vein with VenaSeal Closure System Anesthesia: Local infiltration 5 cc, Estimated Blood Loss: min Specimen: none Duplex ultrasound was used to map out the insufficient saphenous vein, and access was determined and marked on the overlying skin. The depth and diameter of the vein(s) to be treated was documented. The patient was placed supine on the procedure table and the leg was prepped and draped using sterile technique. Ultasound guidance was again used to localize the access site. 1% lidocaine was injected as a local anesthetic in the subcutaneous tissues at the target location in the GSV in the lower leg. Using ultrasound guidance, access was gained at this location with the 19 gauge thin walled access needle and followed by introduction of a short guidewire, location confirmed with ultrasound. A small, 3 mm incision was made at the access site to allow for introduction and placement of the 7 Fr x7cm introducer/dilator. The dilator and guidewire were removed. The 0.035 guidewire from the VenaSeal kit was then introduced and positioned at the saphenofemoral junction using ultrasound guidance. The 80 cm 7 Fr introducer sheath/dilator was positioned 5cm from the saphenofemoral junction. The guidewire and dilator were removed, and the remaining sheath was flushed with sterile saline, with the syringe remaining in place prior to the next steps. The cyanoacrylate adhesive was precisely primed into the 5 F delivery catheter and this catheter/syringe combination was attached within the dispenser gun. This assembly was introduced through the 7F sheath and positioned 5 cm caudal of the saphenofemoral junction under ultrasound guidance. The steps from the IFU were followed for dispensing amounts, locations and compression times, 2 aliquots proximally with 3 minutes of compression, and 1 aliquot every 3 cm distally with 30 sec of compression along the course of the vessel. Following the last injection and compression sequence, the catheter and introducer sheath were pulled out from the access site. Hemostasis was achieved with manual compression and an adhesive bandage was applied to the incision. Ultrasound confirmed complete coaptation and closure of the treated segments of the GSV, and the absence of any DVT at the saphenofemoral junction. Treatment time was approximately 7 minutes and the vein length treated was 55 cm. The drapes were removed and the patient cleaned and prepared for discharge. Post op ultrasound check is scheduled for 48-72 hours and the patient was given written post-op instructions. 33496 - Endoven Ther Chem Adhes 1st All charges added?: Procedure code (CPT) selection complete Coding Level of Care Code Procedure Only Diagnoses CPT Codes Details - Vascular 3: 31093 - Endoven Ther Chem Adhes 1st ([id number])
== END 2023-03-20 09:05 | disposition home or self-care (01) ==
PROVIDERS: PCP Nurse Practitioner Family; Visit Provider Surgery Vascular Surgery
DX: I83.11 Varicose veins of right lower extremity with inflammation (principal)
CPT/HCPCS: 36482; 76937

== ENCOUNTER → 2023-03-20 07:22 | Outpatient (BNVA) | payer OTHER, SELFPAY | PROVIDERS: PCP Nurse Practitioner Family; Visit Provider Surgery Vascular Surgery | DX: M79.604 Pain in right leg (principal); I83.11 Varicose veins of right lower extremity with inflammation | CPT/HCPCS: 36482 ==

== ENCOUNTER → 2023-03-23 08:13 | Outpatient (REF) | payer OTHER, SELFPAY ==
--- NOTE | 2023-03-23 08:16 | CA_ITS ---
Transthoracic Echocardiogram Patient (Last, First, Middle): Sancho Padilla, Gender: Male Date of : 1955 Age: 68 Procedure Date: 03/23/2023 Procedure Type: Transthoracic Echocardiogram Location: OP Height: 185.42 cm Weight: 78.93 kg BSA: 2.03 m2 Heart Rate: bpm BP: 120 / 82 mmHg Prison Guard Supervisor: NORMA Referring MD: Clyde Bruner [facility] Symptoms: R01.1 - Cardiac murmur, unspecified Study Quality: Adequate ECG Rhythm: Sinus Conclusions: - The left ventricular systolic function is low normal. The visually estimated ejection fraction is between 50-55%. - Mildly increased right ventricular cavity size. - The mitral valve appears myxomatous. - No obvious valvular pathology seen on this study. Findings Left Ventricle Normal left ventricular cavity size. There is normal left ventricular wall thickness. The left ventricular systolic function is low normal. The visually estimated ejection fraction is between 50-55%. There is no evidence of regional wall motion abnormalities. Diastolic function is normal for age. E/E prime ratio is <8, consistent with normal filling pressures. Strain measurement possibly not accurate. Right Ventricle Mildly increased right ventricular cavity size. There is normal right ventricular systolic function. Atria The left atrium is normal in size. The right atrium is likely dilated. Aortic Valve There is a normal trileaflet aortic valve. There is no aortic valve stenosis. There is trace (trivial) aortic valve regurgitation. Mitral Valve The mitral valve appears myxomatous. There is no mitral valve regurgitation. There is no mitral valve stenosis. Pulmonic Valve The pulmonic valve is likely normal. Tricuspid Valve There is mild tricuspid valve regurgitation. There is no evidence of pulmonary hypertension. Great Vessels The asc aorta is normal in size. Venous The inferior vena cava is mildly dilated and collapses greater than 50% with inspiration. Pericardium/Pleural There is no evidence of pericardial effusion. Prior Study Comparison No prior study available for comparison. Recommendations, Care & Conclusions No obvious valvular pathology seen on this study. Measurements 2D Linear Measurements IVSd: 1.00 0.6-0.9/0.6-1.0 cm LVIDd: 4.50 3.9-5.3/4.2-5.9 cm LVIDd Index: 2.22 2.4-3.2/2.2-3.1 cm/m2 LVIDs: 2.90 2.0-3.6 cm LVPWd: 1.10 0.7-1.1 cm LA Diam: 3.10 2.7-3.8/3.0-4.0 cm LAIDs Index: 1.53 1.5-2.3 cm/m2 LV Mass: 204.23 67-162/88-224 g LV Mass Index: 100.60 43-95/49-115 g/m2 LVOT Diam: 2.80 3.0+(-)1.3 cm 2D Systolic Function EF 4C: 62.90 >55% EF 2C: 65.90 >55% EF BiP: 64.20 >55% Mitral Valve MV Pk E: 0.44 MV PK A: 0.36 MV Decel Time: 345.00 E/A: 1.20 E'Lateral: 12.30 E'Medial: 10.30 E/E' Med: 4.30 E/E' Lat: 3.60 PHT: 101.00 MVA PHT: 2.18 Decel [place]: 1.28 Aortic Valve AoV Pk Jacky: 0.71 AoV Mn Jacky: 0.50 AoV VTI: 0.16 AoV Pk Grad: 2.00 Aov Mn Grad: 1.00 JOEL Cont.VTI: 6.00 LVOT LVOT Pk Jacky: 0.70 LVOT Mn Jacky: 0.47 LVOT VTI: 0.15 LVOT Pk Grad: 2.00 LVOT Mn Grad: 1.00 LVOT Diam: 2.80 LVOT Area: 6.16 Diastolic Function MV Pk E: 0.44 MV Pk A: 0.36 E/A: 1.20 E'Medial: 10.30 E/E' Med: 4.30 E' Laterial: 12.30 E/E' Lat: 3.60 Right Ventricle TAPSE (mm): 22.80 TVS' Jacky: 12.50 Tricuspid Valve TR Pk Jacky: 2.58 TR Pk Grad: 27.00 RA Press: 8.00 RVSP: 35.00 Great Vessels Aorta Sinus of Valsalva: 4.20 2.0-3.[address] [place]: 3.20 1.7-3.4 cm Ao Asc: 3.40 2.1-3.4 cm Updated in Other Vendor System with Status of Final Wyatt Taylor MD electronically signed on 03/23/2023 10:04:35 AM with status of Final
== END ==
LOC: HO.CARD 08:13
PROVIDERS: PCP Nurse Practitioner Family; Visit Provider Nurse Practitioner Family
DX: R01.1 Cardiac murmur, unspecified (principal)
CPT/HCPCS: 93306

== ENCOUNTER → 2023-03-23 08:16 | Outpatient (BNV) | payer OTHER, SELFPAY | PROVIDERS: PCP Nurse Practitioner Family; Visit Provider Internal Medicine | DX: I36.1 Nonrheumatic tricuspid (valve) insufficiency (principal); R01.1 Cardiac murmur, unspecified | CPT/HCPCS: 93306 ==

== ENCOUNTER 2023-03-23 10:15 | Outpatient (REF) | payer OTHER, SELFPAY ==
--- NOTE | ~2023-03-23 | US_ITS ---
EXAMINATION: US VENOUS ULTRASOUND WITH DOPPLER LOWER EXTREMITY, RIGHT CLINICAL INFORMATION: Pain in right leg. Please rule out DVT right lower extremity status post right great saphenous vein Venaseal 03/20/2023. COMPARISON: Venous ultrasound 10/29/2022. TECHNIQUE: Ultrasound of the deep veins is performed from the hip to the calf with compression sonography and color and pulse Doppler assessment. Spectral analysis with color-flow imaging is performed. FINDINGS: There is normal venous compression and respiratory variation and augmented flow. The visualized common femoral vein, superficial femoral vein, profunda femoral vein, popliteal vein, and the trifurcation region shows no evidence of deep venous thrombosis. There is no significant popliteal fossa cyst. Post Venaseal changes are seen in the great saphenous vein with closure seen up to 1.2 cm from the saphenofemoral junction. If the patient's symptoms persist, followup ultrasound in 5 days 7 days might be of value to exclude proximal propagation from a non-visualized calf vein. US/US venous duplex LE RT IMPRESSION: No DVT demonstrated in the right lower extremity. Post Venaseal changes in the right GSV up to 1.2 cm to the saphenofemoral junction.
== END 2023-03-23 10:16 | disposition home or self-care (01) ==
LOC: HO.US 10:15
PROVIDERS: PCP Nurse Practitioner Family; Visit Provider Surgery Vascular Surgery
DX: M79.604 Pain in right leg (principal)
CPT/HCPCS: 93971

== ENCOUNTER 2023-04-01 15:44 | Outpatient (AMB) | payer OTHER, SELFPAY ==
--- NOTE | 2023-04-01 15:51 | MHC.OFFVIS ---
Intake Intake Visit Reasons: 6M PSA(set) Intake Note: Pt presents to the office today for a 6 month follow up PSA. Allergies No Known Allergies Allergy (Verified 04/07/23 15:48) HPI HPI Comments History of Present Illness Details Sancho is a pleasant male. He is a patient of Dr. Davis. He seen for the following urologic conditions - BPH - gross hematuria - urinary tract infection Continuing on finasteride PSA down to 8.4 F 15% Known 200 g prostate Continue to follow Elevated PSA - 16 KEREN soft 3+ Lower urinary tract symptoms Nocturia resolved and better emptying following procedure 04/14 GreenLight laser prostate Pathology - BPH, large prostate 200 gm - biopsy negative Gross hematuria with urinary tract infection Initial Presentation to emergency room Imaging - 11/12 CT scan large prostate with bladder wall thickening Microbiology - 11/12 Aerococcus urinae - sensitivity per Google search Augmentin PSA 03/14 16, 09/15 11, 03/15 8.4 15% Therapeutic plan - continue to follow [facility] Medical History Acute kidney injury BPH (benign prostatic hyperplasia) Detached retina Hernia Kidney stones MSSA bacteremia Myxomatous mitral valve PICC (peripherally inserted central catheter) in place Pyelonephritis Ureteral stent present Surgical History History of cystoscopy History of eye surgery History of prostate surgery History of umbilical hernia repair Hx of varicose vein ligation Family History Sister Melanoma Social History Household Members: Spouse Housing: House Are you a primary respiratory care technician to a significant other at home: No Do you presently have visiting nurse or other home services: No Alcohol intake: never Patient Tobacco Use Status: Former Tobacco user Quit Date: 20 years ago Tobacco use type: Cigarette e-Cigarette/Vaping Use: Former Use Second Hand Smoke Exposure: No service: No Current occupational status: employed Cognitive needs: No Hearing needs: No Vision needs: Yes Review of Systems Const Denies chills and Denies fever(s) Card Reports no additional complaints and Denies syncope Resp Denies cough GI Denies abdominal pain and Denies heartburn Reports as per HPI and Denies change in libido Neuro Denies syncope Psych Denies change in libido Endo Denies change in libido Physical Exam Const General: cooperative, healthy appearing, comfortable and no acute distress Orientation/consciousness: patient oriented x3 HEENT Face and sinus: Yes normal facial exam Mouth: moist mucous membranes Neck Neck: Yes normal visual inspection, Yes full ROM and Yes trachea midline Chest Chest palpation & inspection: normal inspection of the chest Resp Effort & Inspection: normal respiratory effort, able to speak in complete sentences and no respiratory distress GI Inspection: Yes normal to inspection Back/Spine/Pelvis Cervical Spine: normal cervical lordosis Thoracic/Lumbar Spine: thoracic and lumbar spine normal to inspection Skin General skin exam: no rashes or lesions noted Neuro General: patient oriented x3, gait normal, tone normal and moves all extremities Extrem General: Yes normal to inspection and Yes capillary refill normal Assessment & Plan Assessment & Plan (1) Elevated PSA: Code(s): R97.20 - Elevated prostate specific antigen [PSA] (2) BPH w urinary obs/LUTS: Code(s): N40.1 - Benign prostatic hyperplasia with lower urinary tract symptoms; N13.8 - Other obstructive and reflux uropathy (3) Bladder stones: Code(s): N21.0 - Calculus in bladder Plan 6 month follow-up PSA Patient Instructions: Imaging studies, laboratory and physical exam results were discussed and reviewed in detail. No major barriers to patient understanding were identified. An opportunity to ask questions regarding the treatment plan was provided. All questions were answered. The patient expressed understanding and agreement with the above treatment plan. The patient is aware they should contact our office by phone for worsening of their current condition or the appearance of new urologic symptoms. Compliance is encouraged with any medications and followup testing that is ordered. It is a privilege to participate in the urologic care of your patient. If you have any questions or concerns regarding treatment for the above conditions, or other urologic issues, please do not hesitate to contact me. The office telephone contact is [phone]. This note is constructed using voice recognition software. While every effort has been made to ensure accuracy quality consultant errors may have been included. Yours sincerely, Dr Rod Phillips MD, [facility] - Urology Providers of Expert, Compassionate Care for the Genitourinary System Coding Level of Care Code Est Pt Level 3 (88633) Diagnoses Elevated PSA R97.20 BPH w urinary obs/LUTS N40.1; N13.8 Bladder stones N21.0
== END 2023-04-01 16:29 | disposition home or self-care (01) ==
PROVIDERS: Visit Provider Urology
DX: R97.20 Elevated prostate specific antigen [PSA] (principal); N40.1 Benign prostatic hyperplasia with lower urinary tract symptoms; N13.8 Other obstructive and reflux uropathy; N21.0 Calculus in bladder
CPT/HCPCS: 99024

== ENCOUNTER → 2023-04-01 15:44 | Outpatient (BNVA) | payer OTHER, SELFPAY | PROVIDERS: Visit Provider Urology ==

== ENCOUNTER 2023-04-07 15:44 | Outpatient (AMB) | payer OTHER, SELFPAY ==
--- NOTE | 2023-04-07 15:45 | A.OFFVIS_ITS ---
Intake Intake Visit Reasons: 2 week follow up Right GSV Venaseal 03/20/23 Intake Note: Patient is here for a 2 week follow up right GSV venaseal 03/20/23, hx left micro 09/22/22, left gsv venaseal 07/25/22.. Allergies No Known Allergies Allergy (Verified 04/07/23 15:48) HPI 2 week follow up Right GSV Venaseal 03/20/23 HPI Details Pleasant 68-year-old gentleman status post right great saphenous vein ablation. Appears to be doing relatively well. Swelling and discomfort have decreased. Has had no other interval issues. Now for routine follow-up. Of note postprocedure ultrasound was negative for DVT. [facility] Medical History Acute kidney injury BPH (benign prostatic hyperplasia) Detached retina Hernia Kidney stones MSSA bacteremia Myxomatous mitral valve PICC (peripherally inserted central catheter) in place Pyelonephritis Ureteral stent present Surgical History History of cystoscopy History of eye surgery History of prostate surgery History of umbilical hernia repair Hx of varicose vein ligation Family History Sister Melanoma Social History Household Members: Spouse Housing: House Are you a primary critical care unit manager to a significant other at home: No Do you presently have visiting nurse or other home services: No Alcohol intake: never Patient Tobacco Use Status: Former Tobacco user Quit Date: 20 years ago Tobacco use type: Cigarette e-Cigarette/Vaping Use: Former Use Second Hand Smoke Exposure: No service: No Current occupational status: employed Cognitive needs: No Hearing needs: No Vision needs: Yes Review of Systems Const Reports as per HPI ENT Reports no additional complaints Card Denies chest pain, Denies chest pain at rest and Denies chest pain with activity Resp Denies chest congestion and Denies cough GI Reports no additional complaints Musc Details: pain over varicosities, aching of lower extremities, swelling, cramping, heaviness and tiredness, itching Denies abnormal gait Skin/Breast Reports pruritus and Denies wounds Neuro Reports no additional complaints and Denies abnormal gait Psych Denies no additional complaints Physical Exam Const General: cooperative, healthy appearing and comfortable Orientation/consciousness: oriented to person, oriented to place and oriented to time Neck Carotids: no bruits Chest Chest palpation & inspection: normal inspection of the chest and normal palpation of entire chest wall Resp Effort & Inspection: normal respiratory effort and able to speak in complete sentences Cardio Rate: regular rate Heart sounds: S1 normal heart sound present and S2 normal heart sound present Peripheral pulses: Peripheral pulses 2+ throughout GI Inspection: Yes normal to inspection Skin Other: +2 edema, large rope-like varicosities greater than 4 mm CEAP Classification C4 - skin color changes Ep - Etiology Primary As - superficial veins P - reflux General skin exam: dry skin Neuro General: oriented to person, oriented to place and oriented to time Extrem Right lower extremity: full ROM, normal capillary refill and edema Left lower extremity: full ROM, normal capillary refill and edema Psych Mental Status: mental status grossly normal Assessment & Plan Assessment & Plan (1) Varicose veins of right lower extremity with inflammation: Comment: 03/20/2023 - right great saphenous vein Cyanoacralate ablation Code(s): I83.11 - Varicose veins of right lower extremity with inflammation (2) Varicose veins of left lower extremity with inflammation: Comment: 07/25/2022 - left great saphenous vein Cyanoacralate ablation 09/22/2022 - left leg microphlebectomy Code(s): I83.12 - Varicose veins of left lower extremity with inflammation Plan: In short patient has undergone right and left lower extremity venous treatment. In general his legs appear to be doing relatively well. We did discuss conservative measures including compression elevation and exercise. We will follow him up in approximately 6 months time to review if additional microphlebectomy needs to be performed. Thank you for allowing us to assist in this patient's care. If there are any questions or concerns please do not hesitate to contact us. Coding Level of Care Code Est Pt Level 4 (93063) Diagnoses Varicose veins of right lower extremity with inflammation I83.11 Varicose veins of left lower extremity with inflammation I83.12
== END 2023-04-08 08:22 | disposition home or self-care (01) ==
PROVIDERS: PCP Nurse Practitioner Family; Visit Provider Surgery Vascular Surgery
DX: I83.11 Varicose veins of right lower extremity with inflammation (principal); I83.12 Varicose veins of left lower extremity with inflammation
CPT/HCPCS: 99213

== ENCOUNTER → 2023-04-07 15:44 | Outpatient (BNVA) | payer OTHER, SELFPAY | PROVIDERS: PCP Nurse Practitioner Family; Visit Provider Surgery Vascular Surgery ==

== ENCOUNTER 2023-06-04 07:22 | Inpatient (IN) | payer OTHER, SELFPAY ==
--- NOTE | ~2023-06-04 | IR_ITS ---
History: Obstructive nephrolithiasis with urosepsis Procedure performed: 1. Ultrasound and fluoroscopic guided placement of a right-sided nephrostomy airplane tube builder: Carlin St MD FSIR Anesthesia: IV Fentanyl and local anesthesia only; 8 mL 1% lidocaine Specimen: 15 mL purulent urine sent to the laboratory for culture Drain: 8 Colombian locking pigtail catheter Estimated blood loss: Minimal Complications: None Procedure in detail: Informed and written consent was obtained and placed in the chart. The patient was positioned prone on the angiography table with sterile preparation of the right flank. Ultrasound of the right kidney showed hydronephrosis and hydroureter. A posterior inferior calyx was identified for access. 1% lidocaine was injected subcutaneously and extended to the renal capsule. A small incision was made in the skin with a #11 blade. Through the incision and under ultrasound guidance with permanent recordings and direct visualization of needle penetration into a posterior inferior calyx, the renal collecting system was catheterized in an antegrade fashion. We transitioned for an Amplatz wire over which serial dilatation was performed until an 8 Colombian locking pigtail catheter could be placed and formed in the renal pelvis. An antegrade nephrostogram confirmed hydronephrosis with proximal ureteral obstruction. The tube was sutured to the skin and connected to gravity drainage. An overlying sterile dressing was applied. Summary: Successful ultrasound and fluoroscopic guided placement of a nephrostomy tube in the right kidney.
--- NOTE | ~2023-06-04 | IR_ITS ---
EXAMINATION: IR US GUIDE NEEDLE PLACEMENT - FL AND SPOT FILMS FOR NEPHROSTOMY CLINICAL INFORMATION: Right nephrostomy. COMPARISON: None available. TECHNIQUE: Fluoroscopy and spot films for nephrostomy. FLUOROSCOPY TIME: 1.2 minutes. IMAGES: 1 DOSE: 2.15 mGycm2. FINDINGS: Single image demonstrates a nephrostomy catheter with its tip at the right UPJ. The proximal ureter is dilated. Filling defects are seen in the collecting system. IR/IR us guide needle place IMPRESSION: Fluoroscopy and spot films as described above.
--- NOTE | ~2023-06-04 | CT_ITS ---
EXAMINATION: CT ABDOMEN AND PELVIS WITHOUT CONTRAST CLINICAL INFORMATION: Right lower quadrant pain. Nausea and vomiting. COMPARISON: 11/29/2022 TECHNIQUE: Multidetector volumetric imaging was performed from the superior aspect of the liver through the pubic symphysis. Sagittal and coronal reformatted images were obtained on the technologist's workstation. This CT examination was performed using dose optimization techniques as appropriate, variously including the following: *Automated exposure control *Adjustment of mA and/or kV according to patient size (this includes techniques or standardized protocols for targeted exams where dose is matched to indication/reason for exam; i.e. extremities or head) *Use of iterative reconstruction technique DLP: 1032 mGy-cm FINDINGS: Motion artifact technically degrades image quality. LUNG BASES: Linear atelectasis versus scarring in the right lower lobe. LIVER, GALLBLADDER, AND BILIARY TREE: The noncontrast liver is normal in size and contour. No biliary ductal dilatation is present. Gallstones. PANCREAS: No ductal dilatation. SPLEEN: 1.2 cm hypodensity is indeterminate. The spleen is not enlarged. ADRENAL GLANDS: No adrenal mass. KIDNEYS AND URETERS: There is edema and enlargement of the right kidney with marked perinephric stranding. There are multiple collecting system calcifications. The largest in the lower pole measures 1.3 cm. There is a 1.4 cm calcification impacted in the proximal right ureter causing moderate to marked right hydroureteronephrosis. A fragmented piece of the pigtail stent appears to be entrapped within the calculus. No left renal calculus. The left kidney is normal in size. No hydronephrosis. Nonspecific perinephric stranding. BLADDER: Circumferential wall thickening. Large calcifications are suspected within the bladder wall or entrapped within bladder diverticula. GASTROINTESTINAL TRACT: No small bowel obstruction. ABDOMINAL WALL: Fat-containing right inguinal hernia. LYMPH NODES: No bulky abdominal or pelvic lymphadenopathy. VASCULAR: No abdominal aortic aneurysm. PELVIC VISCERA: Marked enlargement of the prostate gland. The prostate gland measures 6.1 x 7.7 cm in transverse dimension. Small free fluid in pelvis. OSSEOUS STRUCTURES: No destructive bone lesions. CT/CT abdomen pelvis wo IV con IMPRESSION: 1.4 cm impacted calculus in the proximal right ureter resulting in moderate to marked right hydroureteronephrosis and severe right perinephric stranding. A fragmented piece of the pigtail stent appears to be entrapped within the calculus. There are multiple additional right collecting system calcifications with the largest measuring 1.3 cm in the lower pole. Marked prostatomegaly. Posterior indentation of the urinary bladder. Circumferential bladder wall thickening. Large calcifications are suspected within the bladder wall or entrapped within bladder diverticula.
[2023-06-04 07:37] VITALS: BP 129/67; PULSE 93; RESP 18; TEMP 37.1; O2SAT 97; BMI 23.3
[2023-06-04 07:53] LABS: MANUAL DIFF FLAG NO
[2023-06-04 07:56] LABS: Basophils Absolute Auto 0.1 X10*3/uL (0.0-0.2); Basophils Percent Auto 0.3 % (0-2); Hematocrit 38.9 % (42.0-52.0); Hemoglobin 13.2 g/dl (14.0-18.0); Imm Gran Abs Auto 0.09 X10*3/uL (0.00-0.03); Imm Gran Pct Auto 0.5 % (0.0-0.4); Lymphocytes Absolute Auto 0.9 X10*3/uL (1.2-4.9); Lymphocytes Percent Auto 5.1 % (20-40); Mean Corpuscular HGB Conc 33.9 g/dl (31.0-36.0); Mean Corpuscular Hemoglobin 27.2 pg (27.0-33.0); Mean Platelet Volume 9.4 fL (9.4-12.4); Monocytes Absolute Auto 1.3 X10*3/uL (0.1-1.2); Monocytes Percent Auto 7.8 % (2-11); Neutrophils Absolute Auto 14.3 x10*3/uL (2.0-8.3); Neutrophils Percent Auto 86.3 % (45-73); Platelet Count 214 X10*3/uL (160-400); Red Blood Count 4.86 X10*6/uL (4.60-5.80); Red Cell Distribution Width 14.1 % (11.0-16.0); White Blood Count 16.6 X10*3/uL (4.8-10.8)
[2023-06-04 08:05] LABS: Appearance Urine Cloudy; Color Urine Yellow; Glucose Urine UA Negative (Negative); Leukocyte Esterase Urine Large (3+) (Negative); Nitrite Urine Positive (Negative); UMIC TRIGGER UACC YES; Urine Blood Moderate (2+) (Negative); Urine Ketones Negative (Negative); Urine Protein 30 (1+) mg/dL (Neg-Trace)
[2023-06-04 08:13] LABS: Alanine Aminotransferase 16 U/L (0-40); Albumin Level 3.8 g/dL (3.5-5.0); Alkaline Phosphatase 51 U/L (39-117); Anion Gap 17 (12-20); Aspartate Amino Transferase 17 U/L (5-37); Bilirubin Total 1.1 mg/dL (0.0-1.0); Blood Urea Nitrogen 43 mg/dL (9-16); Calcium 9.5 mg/dL (8.4-10.2); Carbon Dioxide 19 mmol/L (22-29); Chloride 104 mmol/L (96-108); Creatinine Clr Calc Pharmacy 46.9; Estimated Glomerular Filt Rate 39; Glucose Random 156 mg/dL (60-115); Sodium 136 mmol/L (135-145); Total Protein 6.9 g/dL (6.5-8.0)
[2023-06-04 08:15] LABS: Bacteria Urine 4+ (None Seen); Squamous Epithelial Cell Urine 0-2 /HPF (0-2); UACC Culture Trigger YES; WBC Urine >50 /HPF (0-5)
--- NOTE | 2023-06-04 13:32 | ED.ABDPAIN ---
HPI - Abdominal Pain General Chief Complaint: Abdominal Pain Stated Complaint: LRQ pain Time Seen by Provider: 06/04/23 13:20 Source: patient Mode of arrival: ambulatory Limitations: no limitations History of Present Illness HPI narrative: 68-year-old male presents to the emergency department right lower quadrant pain that started yesterday. He states he was incidentally eating some food we had sudden onset of nausea he denies any falls or injuries he states he has pretty severe pain yesterday which is improved at this point. He denies any falls or injuries denies chest pain cough or shortness of breath denies any other issues. He states was 6 months ago started with kidney stones and had a stent placed found enlarged prostate and another procedure done as well as lithotripsy. He states he had the stent was. I did explain to him CT today revealed stent still in place has another kidney stone. Urine does look infected I did patient admission MD elicited complaint: abdominal pain and flank pain Related Data Home Medications Medication Instructions Recorded Confirmed ascorbic acid (vitamin C) 500 mg 500 mg PO DAILY 11/29/22 03/19/23 tablet (Vitamin C) cholecalciferol (vitamin D3) 50 50 mcg PO DAILY 11/29/22 03/19/23 mcg (2,000 unit) tablet (Vitamin D3) multivitamin 1 tab PO DAILY 11/29/22 03/19/23 zinc acetate 50 mg (zinc) capsule 50 mg PO DAILY 11/29/22 03/19/23 finasteride 5 mg tablet 5 mg PO DAILY 04/07/23 Allergies Allergy/AdvReac Type Severity Reaction Status Date / Time No Known Allergies Allergy Verified 06/04/23 07:41 Review of Systems Review of Systems Review of systems: General: Patient denies any fever chills recent illness or falls Musculoskeletal: Denies back pain or body aches or other injuries HEENT: denies headache, runny nose, ear pain Respiratory: denies shortness of breath, cough Cardiovascular: no chest pain or palpitations : denies dysuria, frequency Abdomen: no nausea vomiting he does have right lower quadrant abdominal pain Extremities: no swelling, no pain Skin: no diaphoresis Yes all other systems are reviewed and are negative PMFSH Past Medical History Medical History Acute kidney injury BPH (benign prostatic hyperplasia) Detached retina Hernia Kidney stones MSSA bacteremia Myxomatous mitral valve PICC (peripherally inserted central catheter) in place Pyelonephritis Ureteral stent present Surgical History History of cystoscopy History of eye surgery History of prostate surgery History of umbilical hernia repair Hx of varicose vein ligation Family History Family History Sister Melanoma Social History Social History Household Members: Spouse Housing: House Are you a primary career technology teacher to a significant other at home: No Do you presently have visiting nurse or other home services: No Alcohol intake: never Patient Tobacco Use Status: Former Tobacco user Quit Date: 20 years ago Tobacco use type: Cigarette e-Cigarette/Vaping Use: Former Use Second Hand Smoke Exposure: No Advance Directives: Yes Advance Directives on File: Yes Advance Directives Date on File: 12/01/22 service: No Current occupational status: employed Cognitive needs: No Hearing needs: No Vision needs: Yes Physical Exam ED Vital Signs: Vital Signs - 24 hr 06/04/23 07:37 Temperature 98.7 F Pulse Rate 93 Respiratory Rate 18 Blood Pressure 129/67 Pulse Oximetry 97 Oxygen Delivery Method Room Air BMI result Body Mass Index 23.3 Const Other: General: Well-appearing well-nourished in no signs of distress HEENT: Normocephalic atraumatic Neck: No signs of JVD, no masses no tenderness or lymphadenopathy Cardiovascular: Regular rate and rhythm Respiratory: Clear to auscultation bilaterally Abdomen: Soft nontender no masses no CVA tenderness Extremities: Normal pedal pulses no signs of edema Skin: Dry warm no rashes Back: No tenderness full ROM Medical Decision Making Medical Decision Making MDM Narrative: Patient has known kidney stones recent stent placement as well as a large prostate here right lower quadrant pain had CT scan and labs done show infected kidney stone that required admission and antibiotics. I did speak with Dr. Phillips from Urology who agrees patient should be admitted to hospital service and he will consult the patient today. Differential Diagnosis Differential Diagnoses: The differential diagnosis associated with the presentation includes UTI kidney stone appendicitis Admission/Observation Consideration of admission/observation: Escalation of care including admission/observation considered Patient will be admitted to the hospitalist service. Consult Healthcare Provider Management of the patient was discussed with: Horticultural Therapist I spoke with Dr. Phillips about the patient also spoke with hospitalist about admission. Lab Data MDM Lab Attestation statement: I reviewed the patient's lab results. 06/04/23 07:48 06/04/23 07:48 Labs: Lab Results 06/04/23 06/04/23 Range/Units 07:48 07:57 WBC 16.6 H (4.8-10.8) X10*3/uL RBC 4.86 (4.60-5.80) X10*6/uL Hgb 13.2 L (14.0-18.0) g/dl Hct 38.9 L (42.0-52.0) % MCV 80.0 (80.0-98.0) fL MCH 27.2 (27.0-33.0) pg MCHC 33.9 (31.0-36.0) g/dl RDW 14.1 (11.0-16.0) % Plt Count 214 D (160-400) X10*3/uL MPV 9.4 (9.4-12.4) fL Immature Gran % (Auto) 0.5 H (0.0-0.4) % Neut % (Auto) 86.3 H (45-73) % Lymph % (Auto) 5.1 L (20-40) % [place] % (Auto) 7.8 (2-11) % Eos % (Auto) 0.0 (0-4) % Baso % (Auto) 0.3 (0-2) % Lymph # (Auto) 0.9 L (1.2-4.9) X10*3/uL [place] # (Auto) 1.3 H (0.1-1.2) X10*3/uL Eos # (Auto) 0.0 (0.0-0.4) X10*3/uL Baso # (Auto) 0.1 (0.0-0.2) X10*3/uL Abs Immat Gran (auto) 0.09 H (0.00-0.03) X10*3/uL Absolute Neuts (auto) 14.3 H (2.0-8.3) x10*3/uL Absolute Nucleated RBC 0.000 (0.0-0.012) X10*3/uL Nucleated RBC % (auto) 0.0 (0.0-0.2) /100WBC Sodium 136 (135-145) mmol/L Potassium 4.0 (3.3-5.1) mmol/L Chloride 104 (96-108) mmol/L Carbon Dioxide 19 L (22-29) mmol/L Anion Gap 17 (12-20) BUN 43 H (9-16) mg/dL Creatinine 1.75 H (0.5-1.4) mg/dL Estim Creat Clear Calc 46.9 Estimated GFR 39 Random Glucose 156 H (60-115) mg/dL Calcium 9.5 (8.4-10.2) mg/dL Total Bilirubin 1.1 H (0.0-1.0) mg/dL AST 17 (5-37) U/L ALT 16 (0-40) U/L Alkaline Phosphatase 51 (39-117) U/L Total Protein 6.9 (6.5-8.0) g/dL Albumin 3.8 (3.5-5.0) g/dL Urine Color Yellow Urine Appearance Cloudy Urine pH 6.0 (5.0-9.0) Ur Specific [place] 1.020 (1.005-1.025) Urine Protein 30 (1+) H (Neg-Trace) mg/dL Urine Glucose (UA) Negative (Negative) mg/dL Urine Ketones Negative (Negative) mg/dL Urine Blood Moderate (2+) H (Negative) Urine Nitrite Positive H (Negative) Ur Leukocyte Esterase Large (3+) H (Negative) Urine RBC 6-10 H (0-2) /HPF Urine WBC >50 H (0-5) /HPF Ur Squamous Epith Cells 0-2 (0-2) /HPF Urine Bacteria 4+ (None Seen) Hyaline Casts 3-5 (0-2) /LPF Independent Interpretation I performed an independent interpretation of an: CT Scan Radiology Impression Discussion of test interpretation with radiology: I have reviewed the radiologist's reading. External Record Review External record reviewed: Inpatient record, Office record and Outpatient record Chronic Conditions Previous kidney stones Social Determinants none Discharge Plan Discharge Clinical Impression: Kidney stone on right side, Urinary tract infection, Acute kidney injury Patient Disposition: Admitted As Inpatient Prescriptions: No Action multivitamin Tablet 1 tab PO DAILY zinc acetate 50 mg (zinc) Capsule 50 mg PO DAILY ascorbic acid (vitamin C) [Vitamin C] 500 mg Tablet 500 mg PO DAILY cholecalciferol (vitamin D3) [Vitamin D3] 50 mcg (2,000 unit) Tablet 50 mcg PO DAILY finasteride 5 mg tablet 5 mg PO DAILY Rx Instructions: 3 times a week
[2023-06-04] MEDS: 0.9 % Sodium Chloride 1,000 ML 999 ML IV (13:50)
--- NOTE | 2023-06-04 14:06 | PM.UROCN ---
History of Present Illness Consult details Consult date: 06/04/23 Narrative: Sancho is a 68 year old male with history of Nephrolithiasis, presented to ED with right flank pain and irritative voiding symptoms. UA - nitrite positive, WBC 16K - I discussed treatment plan for right nephrostomy tube due to large impacted right proximal ureteal stone. Pt agrees. CTAP:KIDNEYS AND URETERS: There is edema and enlargement of the right kidney with marked perinephric stranding. There are multiple collecting system calcifications. The largest in the lower pole measures 1.3 cm. There is a 1.4 cm calcification impacted in the proximal right ureter causing moderate to marked right hydroureteronephrosis. A fragmented piece of the pigtail stent appears to be entrapped within the calculus. Review of Systems Review of Systems: 10 point ROS negative other than stated in HPI [facility] Past Medical History Medical History Acute kidney injury BPH (benign prostatic hyperplasia) Detached retina Hernia Kidney stones MSSA bacteremia Myxomatous mitral valve PICC (peripherally inserted central catheter) in place Pyelonephritis Ureteral stent present Family History Family History Sister Melanoma Surgical History Surgical History History of cystoscopy History of eye surgery History of prostate surgery History of umbilical hernia repair Hx of varicose vein ligation Social History Social History Household Members: Spouse Housing: House Are you a primary critical care unit nurse to a significant other at home: No Do you presently have visiting nurse or other home services: No Alcohol intake: former Patient Tobacco Use Status: Former Tobacco user Quit Date: 20 years ago Tobacco use type: Cigarette Smoked in Last 30 Days: No e-Cigarette/Vaping Use: Former Use Second Hand Smoke Exposure: No Use of substances other than those prescribed or required for medical reasons: No Advance Directives: Yes Advance Directives on File: Yes Advance Directives Date on File: 12/01/22 Nutrition Risks: No Nutritional Risk service: No Current occupational status: employed Cognitive needs: No Hearing needs: No Vision needs: Yes Meds Allergies Allergy/AdvReac Type Severity Reaction Status Date / Time No Known Allergies Allergy Verified 06/04/23 07:41 Active Medications: Current Medications Sodium Chloride (Ns) 1,000 mls @ 999 mls/hr IV .Q1H1M PERNELL Stop: 06/04/23 14:30 Last Admin: 06/04/23 13:50 Dose: 999 mls/hr Home Medications Medication Instructions Recorded Confirmed Last Taken Type ascorbic acid (vitamin C) 500 mg 500 mg PO DAILY 11/29/22 06/04/23 06/03/23 History tablet (Vitamin C) cholecalciferol (vitamin D3) 50 50 mcg PO DAILY 11/29/22 06/04/23 06/03/23 History mcg (2,000 unit) tablet (Vitamin D3) multivitamin 1 tab PO DAILY 11/29/22 06/04/23 06/03/23 History zinc acetate 50 mg (zinc) capsule 50 mg PO DAILY 11/29/22 06/04/23 06/03/23 History finasteride 5 mg tablet 5 mg PO MOWEFR 04/07/23 06/04/23 06/03/23 History Physical Exam Vital Signs: Vital Signs: Last Vital Signs Temp 98.7 F 06/04/23 07:37 Pulse 93 06/04/23 07:37 Resp 18 06/04/23 07:37 BP 129/67 06/04/23 07:37 Pulse Ox 97 06/04/23 07:37 O2 Del Method Room Air 06/04/23 07:37 BMI result Body Mass Index 23.3 Const: General: healthy appearing, no acute distress and well developed Orientation/consciousness: patient oriented x3 HEENT: Head: Yes normocephalic and Yes atraumatic Eyes: Conjunctivae: conjunctivae normal Neck: Neck: Yes normal visual inspection Chest: Chest palpation & inspection: normal inspection of the chest Resp: Effort & Inspection: normal respiratory effort Cardio: Rate: regular rate GI: Inspection: Yes normal to inspection Palpation (GI): Soft to palpation : General: Yes CVA tenderness on the right Back/Spine/Pelvis: Back: CVA tenderness Skin: General skin exam: no rashes or lesions noted Neuro: General: patient oriented x3 Extrem: General: No pedal edema Psych: Appearance: grossly normal Affect: normal affect Results Labs 06/04/23 07:48 06/04/23 07:48 Labs: Abnormal lab results 06/04/23 06/04/23 Range/Units 07:48 07:57 WBC 16.6 H (4.8-10.8) X10*3/uL Hgb 13.2 L (14.0-18.0) g/dl Hct 38.9 L (42.0-52.0) % Immature Gran % (Auto) 0.5 H (0.0-0.4) % Neut % (Auto) 86.3 H (45-73) % Lymph % (Auto) 5.1 L (20-40) % Lymph # (Auto) 0.9 L (1.2-4.9) X10*3/uL [place] # (Auto) 1.3 H (0.1-1.2) X10*3/uL Abs Immat Gran (auto) 0.09 H (0.00-0.03) X10*3/uL Absolute Neuts (auto) 14.3 H (2.0-8.3) x10*3/uL Carbon Dioxide 19 L (22-29) mmol/L BUN 43 H (9-16) mg/dL Creatinine 1.75 H (0.5-1.4) mg/dL Random Glucose 156 H (60-115) mg/dL Total Bilirubin 1.1 H (0.0-1.0) mg/dL Urine Protein 30 (1+) H (Neg-Trace) mg/dL Urine Blood Moderate (2+) H (Negative) Urine Nitrite Positive H (Negative) Ur Leukocyte Esterase Large (3+) H (Negative) Urine RBC 6-10 H (0-2) /HPF Urine WBC >50 H (0-5) /HPF Short CBC 06/04/23 Range/Units 07:48 WBC 16.6 H (4.8-10.8) X10*3/uL Hgb 13.2 L (14.0-18.0) g/dl Hct 38.9 L (42.0-52.0) % Plt Count 214 D (160-400) X10*3/uL BMP 06/04/23 07:48 Sodium 136 Potassium 4.0 Chloride 104 Carbon Dioxide 19 L BUN 43 H Creatinine 1.75 H Calcium 9.5 Liver Function 06/04/23 Range/Units 07:48 Total Bilirubin 1.1 H (0.0-1.0) mg/dL AST 17 (5-37) U/L ALT 16 (0-40) U/L Alkaline Phosphatase 51 (39-117) U/L Albumin 3.8 (3.5-5.0) g/dL Urine 06/04/23 Range/Units 07:57 Urine Color Yellow Urine Appearance Cloudy Urine pH 6.0 (5.0-9.0) Ur Specific [place] 1.020 (1.005-1.025) Urine Protein 30 (1+) H (Neg-Trace) mg/dL Urine Glucose (UA) Negative (Negative) mg/dL Imaging Abdomen CT scan report/results: report reviewed and image reviewed CT scan - pelvis: report reviewed and image reviewed Additional studies: Date of Service: 06/04/23 Procedure(s): CT abdomen pelvis wo IV con Accession Number(s): [id number] cc: Clyde Bruner [employer]-; Giovanna Gabriel~ EXAMINATION: CT ABDOMEN AND PELVIS WITHOUT CONTRAST CLINICAL INFORMATION: Right lower quadrant pain. Nausea and vomiting. COMPARISON: 11/29/2022 LUNG BASES: Linear atelectasis versus scarring in the right lower lobe. LIVER, GALLBLADDER, AND BILIARY TREE: The noncontrast liver is normal in size and contour. No biliary ductal dilatation is present. Gallstones. PANCREAS: No ductal dilatation. SPLEEN: 1.2 cm hypodensity is indeterminate. The spleen is not enlarged. ADRENAL GLANDS: No adrenal mass. KIDNEYS AND URETERS: There is edema and enlargement of the right kidney with marked perinephric stranding. There are multiple collecting system calcifications. The largest in the lower pole measures 1.3 cm. There is a 1.4 cm calcification impacted in the proximal right ureter causing moderate to marked right hydroureteronephrosis. A fragmented piece of the pigtail stent appears to be entrapped within the calculus. No left renal calculus. The left kidney is normal in size. No hydronephrosis. Nonspecific perinephric stranding. BLADDER: Circumferential wall thickening. Large calcifications are suspected within the bladder wall or entrapped within bladder diverticula. GASTROINTESTINAL TRACT: No small bowel obstruction. ABDOMINAL WALL: Fat-containing right inguinal hernia. LYMPH NODES: No bulky abdominal or pelvic lymphadenopathy. VASCULAR: No abdominal aortic aneurysm. PELVIC VISCERA: Marked enlargement of the prostate gland. The prostate gland measures 6.1 x 7.7 cm in transverse dimension. Small free fluid in pelvis. OSSEOUS STRUCTURES: No destructive bone lesions. IMPRESSION: 1.4 cm impacted calculus in the proximal right ureter resulting in moderate to marked right hydroureteronephrosis and severe right perinephric stranding. A fragmented piece of the pigtail stent appears to be entrapped within the calculus. There are multiple additional right collecting system calcifications with the largest measuring 1.3 cm in the lower pole. Marked prostatomegaly. Posterior indentation of the urinary bladder. Circumferential bladder wall thickening. Large calcifications are suspected within the bladder wall or entrapped within bladder diverticula. Assessment and Plan (1) Acute kidney injury: Status: Acute (2) Urinary tract infection: Status: Acute (3) Kidney stone on right side: Status: Acute (4) Obstructive uropathy: Status: Acute (5) Hydronephrosis concurrent with and due to calculi of kidney and ureter: Status: Acute Plan IV abx Right nephrostomy tube Time Spent With Patient Time: Total time managing care of this patient today ____ minutes. Procedures Date of Service Date of Service: 06/04/23
--- NOTE | 2023-06-04 14:14 | PHA.MEDREC ---
Pharmacy Consult ? Medication Reconciliation Pharmacy has completed the medication reconciliation. Patient reported medications. Tania Henson, AlisonD
--- NOTE | 2023-06-04 14:20 | P.HPHOSP_ITS ---
History of Present Illness Date of Service: 06/04/23 Chief Complaint: Abominal pain, nausea and vomitting 68-year-old male with past medical history of BPH, recurrent kidney stones. In Aprial of this year, he was admitted for sepsis and acute kidney injury due to acute right-sided hydronephrosis with obstructing stone complicated by MSSA bacteremia and underwent ureteral stent exchange by Urology. Kidney culture grew Enterococcus/strep species and was treated that time for 4 weeks of IV Abx. He comes in today with nausea, vomitting, abdominal pain on the right sided since yesterday, associated with chills. He has CLAUS, elevated WBC, UTI. CT of abdomen/Pelvis shows 1.4 cm impacted calculus in the proximal right ureter resulting in moderate to marked right hydroureteronephrosis and severe right perinephric stranding. A fragmented piece of the pigtail stent appears to be entrapped within the calculus. Urology is recommending Nephrostomy tube by IR Review of Systems 2 Review of Systems: Gen: no fever Resp: no sob, no cough CV: no chest, no DORANTES, no leg edema GI: +n/v, + abd pain Neuro: No confusion Yes all other systems are reviewed and are negative [facility] Medical History Acute kidney injury BPH (benign prostatic hyperplasia) Detached retina Hernia Kidney stones MSSA bacteremia Myxomatous mitral valve PICC (peripherally inserted central catheter) in place Pyelonephritis Ureteral stent present Family History Sister Melanoma Surgical History History of cystoscopy History of eye surgery History of prostate surgery History of umbilical hernia repair Hx of varicose vein ligation Social History Household Members: Family Housing: House Are you a primary patient care coordinator to a significant other at home: No Do you presently have visiting nurse or other home services: No Alcohol intake: former Patient Tobacco Use Status: Former Tobacco user Quit Date: 20 years ago Tobacco use type: Cigarette e-Cigarette/Vaping Use: Former Use Second Hand Smoke Exposure: No Advance Directives Date on File: 12/01/22 service: No Current occupational status: employed Cognitive needs: No Hearing needs: No Vision needs: Yes Meds Allergies Allergy/AdvReac Type Severity Reaction Status Date / Time No Known Allergies Allergy Verified 06/04/23 07:41 Active Medications: Current Medications Sodium Chloride (Ns) 1,000 mls @ 999 mls/hr IV .Q1H1M PERNELL Stop: 06/04/23 14:30 Last Admin: 06/04/23 13:50 Dose: 999 mls/hr Home Medications Medication Instructions Recorded Confirmed Last Taken Type ascorbic acid (vitamin C) 500 mg 500 mg PO DAILY 11/29/22 06/04/23 06/03/23 History tablet (Vitamin C) cholecalciferol (vitamin D3) 50 50 mcg PO DAILY 11/29/22 06/04/23 06/03/23 History mcg (2,000 unit) tablet (Vitamin D3) multivitamin 1 tab PO DAILY 11/29/22 06/04/23 06/03/23 History zinc acetate 50 mg (zinc) capsule 50 mg PO DAILY 11/29/22 06/04/23 06/03/23 History finasteride 5 mg tablet 5 mg PO MOWEFR 04/07/23 06/04/23 06/03/23 History Physical Exam 2 Vital Signs and Narrative: Vital Signs: Last Vital Signs Temp 98.7 F 06/04/23 07:37 Pulse 93 06/04/23 07:37 Resp 18 06/04/23 07:37 BP 129/67 06/04/23 07:37 Pulse Ox 97 06/04/23 07:37 O2 Del Method Room Air 06/04/23 07:37 BMI result Body Mass Index 23.3 Const: Other: General: AO X 3, no acute distress Resp: CTA bilateral CVS: S1,S2,RRR GI: + right sided abdominal tenderness, Skin: No rash Neuro: motor grossly intact Psych: appropriate affect Results Labs 06/05/23 06:40 06/04/23 07:48 Labs: Laboratory Results - last 24 hr 06/04/23 06/04/23 07:48 07:57 MCV 80.0 MCH 27.2 MCHC 33.9 RDW 14.1 Plt Count 214 D MPV 9.4 Immature Gran % (Auto) 0.5 H Neut % (Auto) 86.3 H Lymph % (Auto) 5.1 L [place] % (Auto) 7.8 Eos % (Auto) 0.0 Baso % (Auto) 0.3 Lymph # (Auto) 0.9 L [place] # (Auto) 1.3 H Eos # (Auto) 0.0 Baso # (Auto) 0.1 Abs Immat Gran (auto) 0.09 H Absolute Neuts (auto) 14.3 H Absolute Nucleated RBC 0.000 Nucleated RBC % (auto) 0.0 Anion Gap 17 Estim Creat Clear Calc 46.9 Estimated GFR 39 Random Glucose 156 H Calcium 9.5 Total Bilirubin 1.1 H AST 17 ALT 16 Alkaline Phosphatase 51 Total Protein 6.9 Albumin 3.8 Urine Color Yellow Urine Appearance Cloudy Urine pH 6.0 Ur Specific [place] 1.020 Urine Protein 30 (1+) H Urine Glucose (UA) Negative Urine Ketones Negative Urine Blood Moderate (2+) H Urine Nitrite Positive H Ur Leukocyte Esterase Large (3+) H Urine RBC 6-10 H Urine WBC >50 H Ur Squamous Epith Cells 0-2 Urine Bacteria 4+ Hyaline Casts 3-5 Imaging Radiologist's Impressions: Impressions Abdomen/Pelvis CT 06/04/23 09:29 IMPRESSION: 1.4 cm impacted calculus in the proximal right ureter resulting in moderate to marked right hydroureteronephrosis and severe right perinephric stranding. A fragmented piece of the pigtail stent appears to be entrapped within the calculus. There are multiple additional right collecting system calcifications with the largest measuring 1.3 cm in the lower pole. Marked prostatomegaly. Posterior indentation of the urinary bladder. Circumferential bladder wall thickening. Large calcifications are suspected within the bladder wall or entrapped within bladder diverticula. Assessment and Plan (1) Hydronephrosis concurrent with and due to calculi of kidney and ureter: Status: Acute (2) Acute kidney injury: Status: Acute Plan 68-year-old male with a history of recurrent kidney stones infection hydronephrosis stent in the past presenting with right-sided abdominal pain nausea vomiting and found to have urinary tract infection, impacted stone associated with hydronephrosis. 1/Sepsis to infected kidney stone, UTI- History of Enterococcus previously treated with cefazolin. Cefazolin 2 gram Q8 and follow culture 2/ CLAUS due to obstructive uropathy and is expected to improve following insertion of a nurse for Nephrostomy tube 3/ Hydronphrosis d/t kidney stone, Nephrostomy tube as above Lovenox for dvt prophylaxis at least 2 midnight admission for management of sepsis related to infected kidney stone and need for intervention Time Spent With Patient Time: Total time managing care of this patient today ____ minutes. Quality Stroke Does the patient have a stroke diagnosis?: No VTE Prior VTE?: No VTE Risk Level:: Medical - moderate - high VTE Device Contraindication: Treatment Not Indicated VTE Drug Contraindication: N/A - Med Ordered
[2023-06-04] MEDS: cefTRIAXone sodium 1 GM in 0.9 % Sodium Chloride 50 ML IV (14:48)
[2023-06-04 14:56] LABS: Lactic Acid 1.1 mmol/L (0.5-2.0)
[2023-06-04 15:25] VITALS: BP 116/61; PULSE 71; RESP 16; TEMP 36.6; O2SAT 98
--- NOTE | 2023-06-04 15:29 | MHC.EDTECH ---
THIS PCT ASSUMED CARE OF PT AT 1500 ,VITALS TAKEN AND PT BELONGING LIST DONE ,PT IS HEADING TO IR .
[2023-06-04] MEDS: Morphine Sulfate 4 MG/ML CARTRIDGE 2 MG IVPUSH (15:36)
[2023-06-04] MEDS: 0.9 % Sodium Chloride Flush 3 ML SYRINGE IVFLUSH ×2 (15:37→23:00)
[2023-06-04 18:10] VITALS: BP 116/60; PULSE 81; RESP 18; TEMP 36.6; O2SAT 95
[2023-06-04 23:41] VITALS: BP 118/59; PULSE 82; RESP 18; TEMP 36.9; O2SAT 95
[2023-06-05 07:01] LABS: Hematocrit 35.8 % (42.0-52.0); Hemoglobin 11.8 g/dl (14.0-18.0); Mean Corpuscular Hemoglobin 26.8 pg (27.0-33.0); Mean Corpuscular Volume 81.4 fL (80.0-98.0); Mean Platelet Volume 10.2 fL (9.4-12.4); Platelet Count 184 X10*3/uL (160-400); Red Cell Distribution Width 14.4 % (11.0-16.0); White Blood Count 13.1 X10*3/uL (4.8-10.8)
[2023-06-05 07:50] VITALS: BP 125/59; PULSE 78; RESP 18; TEMP 36.9; O2SAT 95
[2023-06-05] MEDS: 0.9 % Sodium Chloride Flush 3 ML SYRINGE IVFLUSH ×2 (08:47→23:50)
[2023-06-05] MEDS: Enoxaparin Sodium 30 MG/0.3 ML SYRINGE SUBCUT (08:47)
--- NOTE | 2023-06-05 09:12 | P.PNUR_ITS ---
Subjective Subjective Date of Service: 06/10/23 Patient reports: no new complaints, feels better and tolerating a regular diet Interval history: s/p right neph tube, urine sent for culture, WBC improved on AM labs, chem 7 pending at this time Physical Exam 2 Vital Signs: Vital Signs: Last Vital Signs Temp 98.4 F 06/05/23 07:50 Pulse 78 06/05/23 07:50 Resp 18 06/05/23 07:50 BP 125/59 L 06/05/23 07:50 Pulse Ox 95 06/05/23 07:50 O2 Del Method Room Air 06/05/23 07:50 BMI result Body Mass Index 23.3 Const: General: healthy appearing, no acute distress and well developed O rientation/consciousness: patient oriented x3 HEENT: Head: Yes normocephalic and Yes atraumatic Eyes: Conjunctivae: conjunctivae normal Neck: Neck: Yes normal visual inspection Chest: Chest palpation & inspection: normal inspection of the chest Resp: Effort & Inspection: normal respiratory effort Cardio: Rate: regular rate GI: Inspection: Yes normal to inspection Palpation (GI): Soft to palpation : Other: Right Nephrostomy tube, urine lana, Dressing intact no significant drainage noted. Skin: General skin exam: no rashes or lesions noted Neuro: General: patient oriented x3 Extrem: General: No pedal edema Psych: Appearance: grossly normal Affect: normal affect Urology Results Labs 06/05/23 06:40 06/09/23 05:52 Labs: Laboratory Results - last 24 hr 06/04/23 06/04/23 06/05/23 07:57 14:28 06:40 WBC 13.1 H RBC 4.40 L Hgb 11.8 L Hct 35.8 L MCV 81.4 MCH 26.8 L MCHC 33.0 RDW 14.4 Plt Count 184 MPV 10.2 Absolute Nucleated RBC 0.000 Nucleated RBC % (auto) 0.0 Lactic Acid 1.1 Urine Color Yellow Urine Appearance Cloudy Urine pH 6.0 Ur Specific [place] 1.020 Urine Protein 30 (1+) H Urine Glucose (UA) Negative Urine Ketones Negative Urine Blood Moderate (2+) H Urine Nitrite Positive H Ur Leukocyte Esterase Large (3+) H Urine RBC 6-10 H Urine WBC >50 H Ur Squamous Epith Cells 0-2 Urine Bacteria 4+ Hyaline Casts 3-5 Progress Note: A&P Assessment and plan (1) Pyelonephritis: Status: Inactive (2) Hydronephrosis concurrent with and due to calculi of kidney and ureter: Status: Acute (3) Obstructive uropathy: Status: Acute (4) Urinary tract infection: Status: Acute (5) Kidney stone on right side: Status: Acute Plan Neph tube draining well, clinically improving Urine c/s pending, Cont Abx awaiting final C/S and sensitivities He will eventually need fu with urology as outpatient for further stone management Time Spent With Patient Time: Total time managing care of this patient today ____ minutes. Progress Note: Quality Stroke Does the patient have a stroke diagnosis?: No
--- NOTE | 2023-06-05 10:24 | HO.PM.IMPN ---
Subjective Subjective Date of Service: 06/05/23 Interval History: feels better this morning, no pain, no fever. Nephrostomy tube was successfully inserted yesterday. Physical Exam Vital Signs: Vital Signs: Last Vital Signs Temp 98.4 F 06/05/23 07:50 Pulse 78 06/05/23 07:50 Resp 18 06/05/23 07:50 BP 125/59 L 06/05/23 07:50 Pulse Ox 95 06/05/23 07:50 O2 Del Method Room Air 06/05/23 07:50 BMI result Body Mass Index 23.3 Const: Other: General: AO X 3, no acute distress Resp: CTA bilateral CVS: S1,S2,RRR GI/: Right-sided nephrostomy tube in place, clear urine, no abdominal pain, no flank pain. Skin: No rash Neuro: motor grossly intact Psych: appropriate affect Objective Data Active Medications Acetaminophen (Acetaminophen 325 Mg Tablet) 650 mg PO Q6H PRN PRN Reason: Pain, Mild (Pain Scale 1-3) Enoxaparin Sodium (Enoxaparin Sodium 30 Mg/0.3 Ml Syringe) 30 mg SUBCUT DAILY [facility] Last Admin: 06/05/23 08:47 Dose: 30 mg Documented By: FAMILIA Cefazolin Sodium 1 gm/ Sodium (Chloride) 50 mls @ 100 mls/hr IV Q8H [facility] Last Infusion: 06/05/23 06:50 Dose: Infused Documented By: CAROLA Magnesium Hydroxide (Milk Of Magnesia 30 Ml Oral.Susp) 30 ml PO DAILY PRN PRN Reason: Constipation Melatonin (Melatonin 3 Mg Tablet) 6 mg PO BEDTIME PRN PRN Reason: Insomnia Morphine Sulfate (Morphine Sulfate 4 Mg/Ml Cartridge) 2 mg IVPUSH Q4H PRN; Protocol PRN Reason: Pain, Severe (Pain Scale 7-10) Last Admin: 06/04/23 15:36 Dose: 2 mg Documented By: JHONNY Ondansetron HCl (Ondansetron Hcl 4 Mg/2 Ml Vial) 4 mg IVPUSH Q8H PRN PRN Reason: Nausea and Vomiting Sodium Chloride (0.9 % Sodium Chloride Flush 3 Ml Syringe) 3 ml IVFLUSH QSHIFT [facility] Last Admin: 06/05/23 08:47 Dose: 3 ml Documented By: FAMILIA Labs 06/05/23 06:40 06/04/23 07:48 Labs: Laboratory Results - last 24 hr 06/04/23 06/04/23 06/05/23 07:57 14:28 06:40 MCV 81.4 MCH 26.8 L MCHC 33.0 RDW 14.4 Plt Count 184 MPV 10.2 Absolute Nucleated RBC 0.000 Nucleated RBC % (auto) 0.0 Lactic Acid 1.1 Urine Color Yellow Urine Appearance Cloudy Urine pH 6.0 Ur Specific [place] 1.020 Urine Protein 30 (1+) H Urine Glucose (UA) Negative Urine Ketones Negative Urine Blood Moderate (2+) H Urine Nitrite Positive H Ur Leukocyte Esterase Large (3+) H Urine RBC 6-10 H Urine WBC >50 H Ur Squamous Epith Cells 0-2 Urine Bacteria 4+ Hyaline Casts 3-5 Assessment and Plan (1) Hydronephrosis concurrent with and due to calculi of kidney and ureter: Status: Acute (2) Obstructive uropathy: Status: Acute (3) Sepsis: Status: Acute Plan 68-year-old male with a history of recurrent kidney stones infection hydronephrosis stent in the past presenting with right-sided abdominal pain nausea vomiting and found to have urinary tract infection, impacted stone associated with hydronephrosis. 1/Sepsis to infected kidney stone, UTI- History of Enterococcus previously treated with cefazolin. Sepsis resolved. s/p right nephrostomy tube placement 06/04 with noted pus, culture pending, continue;Cefazolin 2 gram Q8 and follow culture. He will go home when ready for dc with the Nephrostomy tube and follow up with Urology 2/ CLAUS due to obstructive uropathy and is expected to improve following insertion of a nurse for Nephrostomy tube 3/ Hydronphrosis d/t kidney stone, Nephrostomy tube as above Lovenox for dvt prophylaxis need for inpatient: management of sepsis related to infected kidney stone and need for intervention Time Spent With Patient Time: Total time managing care of this patient today ____ minutes. Quality Stroke Does the patient have a stroke diagnosis?: No VTE Prior VTE?: No VTE Risk Level:: Medical - moderate - high VTE Device Contraindication: Treatment Not Indicated VTE Drug Contraindication: N/A - Med Ordered
[2023-06-05 11:22] LABS: Anion Gap 13 (12-20); Blood Urea Nitrogen 37 mg/dL (9-16); Calcium 8.8 mg/dL (8.4-10.2); Carbon Dioxide 22 mmol/L (22-29); Chloride 105 mmol/L (96-108); Creatinine Clr Calc Pharmacy 61.2; Estimated Glomerular Filt Rate 53; Glucose Random 124 mg/dL (60-115); Potassium 3.7 mmol/L (3.3-5.1); Sodium 136 mmol/L (135-145)
--- NOTE | 2023-06-05 11:42 | MHC.CM.PN ---
Pt lives in home, independent with care, has transportation home at [place]. He has used [facility] in the past, if needed would like to use them again at [place]. Plan is home with services. PCP: Clyde Bruner. CM to follow and assist with DC plan.
[2023-06-05 15:06] VITALS: BP 118/58; PULSE 77; RESP 18; TEMP 38.3; O2SAT 94
[2023-06-05] MEDS: Acetaminophen 325 MG TABLET 650 MG PO (15:10)
[2023-06-05] MEDS: Ascorbic Acid 500 MG TABLET PO (16:17)
[2023-06-05] MEDS: Cholecalciferol (Vitamin D3) 25 MCG TABLET 50 MCG PO (16:17)
[2023-06-05] MEDS: Multivitamin TABLET 1 TAB PO (16:17)
[2023-06-05] MEDS: Finasteride 5 MG TABLET PO (16:17)
[2023-06-05 16:25] VITALS: TEMP 37.2
[2023-06-05 23:37] VITALS: BP 131/68; PULSE 71; RESP 71; TEMP 36.6; O2SAT 98
--- NOTE | 2023-06-06 02:46 | PC.NURSE ---
acquired care at midnight. Pt is sleeping in bed. Unable to do full assessment. Critical results received from labs on second blood culture + GPC in cluster. notified.
[2023-06-06 03:11] VITALS: BP 142/78; PULSE 67; RESP 18; TEMP 36.7; O2SAT 94
[2023-06-06 07:41] VITALS: BP 136/85; PULSE 97; RESP 18; TEMP 36; O2SAT 96
[2023-06-06] MEDS: Cholecalciferol (Vitamin D3) 25 MCG TABLET 50 MCG PO (08:28)
[2023-06-06] MEDS: Zinc Sulfate 220 MG CAPSULE PO (08:28)
[2023-06-06] MEDS: 0.9 % Sodium Chloride Flush 3 ML SYRINGE IVFLUSH ×3 (08:28→22:56)
[2023-06-06] MEDS: Multivitamin TABLET 1 TAB PO (08:29)
[2023-06-06] MEDS: Ascorbic Acid 500 MG TABLET PO (08:29)
[2023-06-06] MEDS: Enoxaparin Sodium 30 MG/0.3 ML SYRINGE SUBCUT (08:29)
--- NOTE | 2023-06-06 09:23 | P.PNIM_ITS ---
Subjective Subjective Date of Service: 06/06/23 Interval History: Overall feels better, blood and urine culture growing staph Physical Exam 2 Vital Signs: Vital Signs: Last Vital Signs Temp 96.8 F 06/06/23 07:41 Pulse 97 06/06/23 07:41 Resp 18 06/06/23 07:41 BP 136/85 06/06/23 07:41 Pulse Ox 96 06/06/23 07:41 O2 Del Method Room Air 06/06/23 07:41 BMI result Body Mass Index 23.3 Const: Other: General: AO X 3, no acute distress Resp: CTA bilateral CVS: S1,S2,RRR GI/: Right-sided nephrostomy tube in place, clear urine, no abdominal pain, no flank pain. Skin: No rash Neuro: motor grossly intact Psych: appropriate affect Objective Data Active Medications Acetaminophen (Acetaminophen 325 Mg Tablet) 650 mg PO Q6H PRN PRN Reason: Pain, Mild (Pain Scale 1-3) Last Admin: 06/05/23 15:10 Dose: 650 mg Documented By: FAMILIA Ascorbic Acid (Ascorbic Acid 500 Mg Tablet) 500 mg PO DAILY [facility] Last Admin: 06/06/23 08:29 Dose: 500 mg Documented By: MARY Enoxaparin Sodium (Enoxaparin Sodium 30 Mg/0.3 Ml Syringe) 30 mg SUBCUT DAILY [facility] Last Admin: 06/06/23 08:29 Dose: 30 mg Documented By: MARY Finasteride (Finasteride 5 Mg Tablet) 5 mg PO MoWeFr@0900 [facility] Last Admin: 06/05/23 16:17 Dose: 5 mg Documented By: ALVARO Cefazolin Sodium 1 gm/ Sodium (Chloride) 50 mls @ 100 mls/hr IV Q8H [facility] Last Infusion: 06/06/23 09:06 Dose: Infused Documented By: MARY Magnesium Hydroxide (Milk Of Magnesia 30 Ml Oral.Susp) 30 ml PO DAILY PRN PRN Reason: Constipation Melatonin (Melatonin 3 Mg Tablet) 6 mg PO BEDTIME PRN PRN Reason: Insomnia Morphine Sulfate (Morphine Sulfate 4 Mg/Ml Cartridge) 2 mg IVPUSH Q4H PRN; Protocol PRN Reason: Pain, Severe (Pain Scale 7-10) Last Admin: 06/04/23 15:36 Dose: 2 mg Documented By: JHONNY Multivitamins/Vitamin C (Multivitamin Tablet) 1 tab PO DAILY [facility] Last Admin: 06/06/23 08:29 Dose: 1 tab Documented By: MARY Ondansetron HCl (Ondansetron Hcl 4 Mg/2 Ml Vial) 4 mg IVPUSH Q8H PRN PRN Reason: Nausea and Vomiting Sodium Chloride (0.9 % Sodium Chloride Flush 3 Ml Syringe) 3 ml IVFLUSH QSHIFT [facility] Last Admin: 06/06/23 08:28 Dose: 3 ml Documented By: MARY Vitamin D (Cholecalciferol (Vitamin D3) 25 Mcg Tablet) 50 mcg PO DAILY [facility] Last Admin: 06/06/23 08:28 Dose: 50 mcg Documented By: MARY Zinc Sulfate (Zinc Sulfate 220 Mg Capsule) 220 mg PO DAILY [facility] Last Admin: 06/06/23 08:28 Dose: 220 mg Documented By: MARY Labs 06/05/23 06:40 06/05/23 10:52 Labs: Laboratory Results - last 24 hr 06/05/23 10:52 Anion Gap 13 Estim Creat Clear Calc 61.2 Estimated GFR 53 Random Glucose 124 H Calcium 8.8 D Microbiology Microbiology Results: Microbiology 06/04/23 Unknown Urine Culture - Final Urine clean catch - Urine avendaño top Staphylococcus intermedius 06/04/23 14:28 Blood Culture - Preliminary Blood - Venous Prelim: GPC Gram Stain only 06/04/23 14:28 Blood Culture - Preliminary Blood - Venous Prelim: GPC Gram Stain only Assessment and Plan (1) Hydronephrosis concurrent with and due to calculi of kidney and ureter: Status: Acute (2) Obstructive uropathy: Status: Acute (3) Sepsis: Status: Acute Plan 68-year-old male with a history of recurrent kidney stones infection hydronephrosis stent in the past presenting with right-sided abdominal pain nausea vomiting and found to have urinary tract infection, impacted stone associated with hydronephrosis. 1/Sepsis to infected kidney stone, UTI- Urine culture culture growing Staph intermedus and Blood culture 2/2 gram positive cocci -on Cefazolin now, will discuss with ID if need to change s/p right nephrostomy tube placement 06/04 with noted pus, -He will go home when ready for dc with the Nephrostomy tube and follow up with Urology -as it is he will likely need alf IV Abx 2/ CLAUS due to obstructive uropathy, resolving 3/ Hydronphrosis d/t kidney stone, Nephrostomy tube as above Lovenox for dvt prophylaxis need for inpatient: management of sepsis related to infected kidney stone and need for intervention Time Spent With Patient Time: Total time managing care of this patient today ____ minutes. Quality Stroke Does the patient have a stroke diagnosis?: No VTE Prior VTE?: No VTE Risk Level:: Medical - moderate - high VTE Device Contraindication: Treatment Not Indicated VTE Drug Contraindication: N/A - Med Ordered
--- NOTE | 2023-06-06 13:24 | P.CDIM_ITS ---
PROVIDER RESPONSE TEXT: To clarify, the appropriate diagnosis supported by the clinical indicators: Sepsis is/was present and is a clinical diagnosis QUERY TEXT: PHYSICIAN'S DOCUMENTATION REQUEST Date of Query: 06/05/2023 12:54 PM EDT Patient Name: Sancho Padilla Admit Date: 06/04/2023 Dear [place], A review of the medical record indicates additional documentation may be needed. Please review below and update the documentation accordingly. The patient's infectious clinical indicators include: WBC 11.6 HR 93 LA 1.1 Temp 97.8 RR 18 ED: patient denies any fever, chills or recent illness. Clinical impression - Kidney stone on right s sheila, UTI, CLAUS. H&P: no fever. Abdominal pain on the right side, UTI. DX: Sepsis due to infected kidney stone, UTI. Cefazolin 2 grams Q8 and follow culture. PM 06/05 - Sepsis resolved Sepsis Systemic manifestations of infection, with 2 or more SIRS criteria which include: Fever > 100.4?F or hypothermia < 96.8?F Leukocytosis WBC > 12,000 or leukopenia, WBC < 4,000, or > 10% bands Tachycardia- > 90 beats/minute Tachypnea- RR > 20 breaths/minute or PaCO2 < 32mmHg S Based on the above information and the recognized standard for sepsis, could you please clarify if th is diagnoses is still accurate and reflective of the patient's condition to ensure quality of the medical record. Sepsis is/was present and is a clinical diagnosis Sepsis, resolved Not treating Sepsis Other (explain)Clinically unable to determine (explain)Thank you, Josselin Desouza, CCS, CDIS Use of terms such as suspected, likely, concern for, or probable (associated with a specific diagnosi s that is being evaluated, monitored, or treated as if it exists) are acceptable and can be coded in the inpatient se tting, when documented at the time of discharge. Please use your independent medical judgment in providing your response. THIS QUERY IS PART OF THE PERMANENT MEDICAL RECORD
[2023-06-06 15:45] VITALS: BP 133/69; PULSE 72; RESP 16; TEMP 36.8; O2SAT 96
[2023-06-06 23:49] VITALS: BP 123/71; PULSE 63; RESP 16; TEMP 36.7; O2SAT 95
[2023-06-07 08:00] VITALS: BP 127/79; PULSE 79; RESP 16; TEMP 36.6; O2SAT 98
[2023-06-07] MEDS: Ascorbic Acid 500 MG TABLET PO (08:55)
[2023-06-07] MEDS: Enoxaparin Sodium 30 MG/0.3 ML SYRINGE SUBCUT (08:55)
[2023-06-07] MEDS: Multivitamin TABLET 1 TAB PO (08:55)
[2023-06-07] MEDS: Cholecalciferol (Vitamin D3) 25 MCG TABLET 50 MCG PO (08:55)
[2023-06-07] MEDS: Zinc Sulfate 220 MG CAPSULE PO (08:55)
[2023-06-07] MEDS: 0.9 % Sodium Chloride Flush 3 ML SYRINGE IVFLUSH ×2 (08:56→15:23)
--- NOTE | 2023-06-07 10:07 | P.PNIM_ITS ---
Subjective Subjective Date of Service: 06/07/23 Interval History: No new issues Physical Exam 2 Vital Signs: Vital Signs: Last Vital Signs Temp 97.8 F 06/07/23 08:00 Pulse 79 06/07/23 08:00 Resp 16 06/07/23 08:00 BP 127/79 06/07/23 08:00 Pulse Ox 98 06/07/23 08:00 O2 Del Method Room Air 06/07/23 08:00 BMI result Body Mass Index 23.3 Const: Other: General: AO X 3, no acute distress Resp: CTA bilateral CVS: S1,S2,RRR GI/: Right-sided nephrostomy tube in place, clear urine, no abdominal pain, no flank pain. Skin: No rash Neuro: motor grossly intact Psych: appropriate affect Objective Data Active Medications Acetaminophen (Acetaminophen 325 Mg Tablet) 650 mg PO Q6H PRN PRN Reason: Pain, Mild (Pain Scale 1-3) Last Admin: 06/05/23 15:10 Dose: 650 mg Documented By: FAMILIA Ascorbic Acid (Ascorbic Acid 500 Mg Tablet) 500 mg PO DAILY [facility] Last Admin: 06/07/23 08:55 Dose: 500 mg Documented By: MARY Enoxaparin Sodium (Enoxaparin Sodium 30 Mg/0.3 Ml Syringe) 30 mg SUBCUT DAILY [facility] Last Admin: 06/07/23 08:55 Dose: 30 mg Documented By: MARY Finasteride (Finasteride 5 Mg Tablet) 5 mg PO MoWeFr@0900 [facility] Last Admin: 06/05/23 16:17 Dose: 5 mg Documented By: ALVARO Cefazolin Sodium 1 gm/ Sodium (Chloride) 50 mls @ 100 mls/hr IV Q8H [facility] Last Infusion: 06/07/23 07:18 Dose: Infused Documented By: MARY Magnesium Hydroxide (Milk Of Magnesia 30 Ml Oral.Susp) 30 ml PO DAILY PRN PRN Reason: Constipation Melatonin (Melatonin 3 Mg Tablet) 6 mg PO BEDTIME PRN PRN Reason: Insomnia Morphine Sulfate (Morphine Sulfate 4 Mg/Ml Cartridge) 2 mg IVPUSH Q4H PRN; Protocol PRN Reason: Pain, Severe (Pain Scale 7-10) Last Admin: 06/04/23 15:36 Dose: 2 mg Documented By: JHONNY Multivitamins/Vitamin C (Multivitamin Tablet) 1 tab PO DAILY [facility] Last Admin: 06/07/23 08:55 Dose: 1 tab Documented By: MARY Ondansetron HCl (Ondansetron Hcl 4 Mg/2 Ml Vial) 4 mg IVPUSH Q8H PRN PRN Reason: Nausea and Vomiting Sodium Chloride (0.9 % Sodium Chloride Flush 3 Ml Syringe) 3 ml IVFLUSH QSHIFT [facility] Last Admin: 06/07/23 08:56 Dose: 3 ml Documented By: MARY Vitamin D (Cholecalciferol (Vitamin D3) 25 Mcg Tablet) 50 mcg PO DAILY [facility] Last Admin: 06/07/23 08:55 Dose: 50 mcg Documented By: MARY Zinc Sulfate (Zinc Sulfate 220 Mg Capsule) 220 mg PO DAILY [facility] Last Admin: 06/07/23 08:55 Dose: 220 mg Documented By: MARY Labs 06/05/23 06:40 06/05/23 10:52 Microbiology Microbiology Results: Microbiology 06/04/23 16:30 Urine Culture - Preliminary Urine Other - Nephrostomy Culture in progress. 06/04/23 14:28 Blood Culture - Preliminary Blood - Venous Gram positive cocci 06/04/23 14:28 Blood Culture - Preliminary Blood - Venous Staphylococcus species 06/04/23 Unknown Urine Culture - Final Urine clean catch - Urine avendaño top Staphylococcus intermedius Assessment and Plan (1) Hydronephrosis concurrent with and due to calculi of kidney and ureter: Status: Acute (2) Bacteremia: Status: Acute Plan 68-year-old male with a history of recurrent kidney stones infection hydronephrosis stent in the past presenting with right-sided abdominal pain nausea vomiting and found to have urinary tract infection, impacted stone associated with hydronephrosis. 1/Sepsis to infected kidney stone, UTI- Urine culture culture growing Staph intermedus and Blood culture ; 1/2 Staph species and 1/2 enteroccus -on Cefazolin now, will discuss with ID if need to change -echo tomorrow -ID will see tomorrow -s/p right nephrostomy tube placement 06/04 with noted pus, -He will go home when ready for dc with the Nephrostomy tube and follow up with Urology -as it is he will likely need [facility] IV Abx 2/ CLAUS due to obstructive uropathy, resolving 3/ Hydronphrosis d/t kidney stone, Nephrostomy tube as above Lovenox for dvt prophylaxis need for inpatient: management of sepsis related to infected kidney stone and need for intervention Time Spent With Patient Time: Total time managing care of this patient today ____ minutes. Quality Stroke Does the patient have a stroke diagnosis?: No VTE Prior VTE?: No VTE Risk Level:: Medical - moderate - high VTE Device Contraindication: Treatment Not Indicated VTE Drug Contraindication: N/A - Med Ordered
[2023-06-07 15:33] VITALS: BP 141/76; PULSE 76; RESP 16; TEMP 37.1; O2SAT 94
[2023-06-07 23:29] VITALS: BP 131/72; PULSE 67; RESP 16; TEMP 36.9; O2SAT 94
[2023-06-08] MEDS: 0.9 % Sodium Chloride Flush 3 ML SYRINGE IVFLUSH ×2 (00:10→08:46)
--- NOTE | 2023-06-08 07:00 | CA_ITS ---
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 - No obvious vegetations or valvular dysfunction based on available images. Findings Left Ventricle Normal left ventricular cavity size. The left ventricular systolic function is normal. The visually estimated ejection fraction is between 60-65%. There is no evidence of regional wall motion abnormalities. Aortic Valve The aortic valve was not well visualized. There is mild calcification of the aortic valve. There is no aortic valve stenosis. There is no aortic valve regurgitation. Mitral Valve There is mild anterior mitral leaflet thickening. There is no mitral valve regurgitation. There is no mitral valve stenosis. Pulmonic Valve The pulmonic valve was not well visualized. Tricuspid Valve There is trace tricuspid valve regurgitation. Prior Study Comparison No significant change compared to prior study dated: 03/23/2023. Measurements 2D Linear Measurements IVSd: 1.06 0.6-0.9/0.6-1.0 cm LVIDd: 4.56 3.9-5.3/4.2-5.9 cm LVIDd Index: 2.19 2.4-3.2/2.2-3.1 cm/m2 LVIDs: 2.58 2.0-3.6 cm LVPWd: 1.06 0.7-1.1 cm LV Mass: 211.39 67-162/88-224 g LV Mass Index: 101.63 43-95/49-115 g/m2 Updated in Other Vendor System with Status of Final Wyatt Taylor MD electronically signed on 06/08/2023 2:56:18 PM with status of Final
[2023-06-08 07:54] VITALS: BP 147/88; PULSE 84; RESP 18; TEMP 36.2; O2SAT 94
[2023-06-08] MEDS: Multivitamin TABLET 1 TAB PO (08:44)
[2023-06-08] MEDS: Zinc Sulfate 220 MG CAPSULE PO (08:44)
[2023-06-08] MEDS: Ascorbic Acid 500 MG TABLET PO (08:44)
[2023-06-08] MEDS: Enoxaparin Sodium 30 MG/0.3 ML SYRINGE SUBCUT (08:44)
[2023-06-08] MEDS: Cholecalciferol (Vitamin D3) 25 MCG TABLET 50 MCG PO (08:44)
[2023-06-08] MEDS: Finasteride 5 MG TABLET PO (08:54)
--- NOTE | 2023-06-08 09:36 | P.PNIM_ITS ---
Subjective Subjective Date of Service: 06/08/23 Interval History: No new issues, no fever or chils , n flank pain Physical Exam 2 Vital Signs: Vital Signs: Last Vital Signs Temp 97.2 F 06/08/23 07:54 Pulse 84 06/08/23 07:54 Resp 18 06/08/23 07:54 BP 147/88 H 06/08/23 07:54 Pulse Ox 94 06/08/23 07:54 O2 Del Method Room Air 06/08/23 07:54 BMI result Body Mass Index 23.3 Const: Other: General: AO X 3, no acute distress Resp: CTA bilateral CVS: S1,S2,RRR GI/: Right-sided nephrostomy tube in place, clear urine, no abdominal pain, no flank pain. Skin: No rash Neuro: motor grossly intact Psych: appropriate affect Objective Data Active Medications Acetaminophen (Acetaminophen 325 Mg Tablet) 650 mg PO Q6H PRN PRN Reason: Pain, Mild (Pain Scale 1-3) Last Admin: 06/05/23 15:10 Dose: 650 mg Documented By: FAMILIA Ascorbic Acid (Ascorbic Acid 500 Mg Tablet) 500 mg PO DAILY [facility] Last Admin: 06/08/23 08:44 Dose: 500 mg Documented By: JOSH Enoxaparin Sodium (Enoxaparin Sodium 30 Mg/0.3 Ml Syringe) 30 mg SUBCUT DAILY [facility] Last Admin: 06/08/23 08:44 Dose: 30 mg Documented By: JOSH Finasteride (Finasteride 5 Mg Tablet) 5 mg PO MoWeFr@0900 [facility] Last Admin: 06/08/23 08:54 Dose: 5 mg Documented By: JOSH Cefazolin Sodium 1 gm/ Sodium (Chloride) 50 mls @ 100 mls/hr IV Q8H [facility] Last Infusion: 06/08/23 07:08 Dose: Infused Documented By: AMRIT Magnesium Hydroxide (Milk Of Magnesia 30 Ml Oral.Susp) 30 ml PO DAILY PRN PRN Reason: Constipation Melatonin (Melatonin 3 Mg Tablet) 6 mg PO BEDTIME PRN PRN Reason: Insomnia Morphine Sulfate (Morphine Sulfate 4 Mg/Ml Cartridge) 2 mg IVPUSH Q4H PRN; Protocol PRN Reason: Pain, Severe (Pain Scale 7-10) Last Admin: 06/04/23 15:36 Dose: 2 mg Documented By: JHONNY Multivitamins/Vitamin C (Multivitamin Tablet) 1 tab PO DAILY [facility] Last Admin: 06/08/23 08:44 Dose: 1 tab Documented By: JOSH Ondansetron HCl (Ondansetron Hcl 4 Mg/2 Ml Vial) 4 mg IVPUSH Q8H PRN PRN Reason: Nausea and Vomiting Sodium Chloride (0.9 % Sodium Chloride Flush 3 Ml Syringe) 3 ml IVFLUSH QSHIFT [facility] Last Admin: 06/08/23 08:46 Dose: 3 ml Documented By: JOSH Vitamin D (Cholecalciferol (Vitamin D3) 25 Mcg Tablet) 50 mcg PO DAILY [facility] Last Admin: 06/08/23 08:44 Dose: 50 mcg Documented By: JOSH Zinc Sulfate (Zinc Sulfate 220 Mg Capsule) 220 mg PO DAILY [facility] Last Admin: 06/08/23 08:44 Dose: 220 mg Documented By: JOSH Labs 06/05/23 06:40 06/05/23 10:52 Microbiology Microbiology Results: Microbiology 06/04/23 16:30 Urine Culture - Final Urine Other - Nephrostomy Staphylococcus warneri Staphylococcus intermedius 06/06/23 10:21 Blood Culture - Preliminary Blood - Venous No growth after 24 hours. 06/06/23 08:18 Blood Culture - Preliminary Blood - Venous No growth after 24 hours. 06/04/23 14:28 Blood Culture - Preliminary Blood - Venous Staphylococcus lugdunensis 06/04/23 14:28 Blood Culture - Preliminary Blood - Venous Staphylococcus species Assessment and Plan (1) Hydronephrosis concurrent with and due to calculi of kidney and ureter: Status: Acute (2) Bacteremia: Status: Acute Plan 68-year-old male with a history of recurrent kidney stones infection hydronephrosis stent in the past presenting with right-sided abdominal pain nausea vomiting and found to have urinary tract infection, impacted stone associated with hydronephrosis. 1/Sepsis to infected kidney stone, UTI- Urine culture culture growing Staph intermedus and Blood culture also growing Staph species. Repeat cultures negative over 24 hours - Continue Cefazolin -echo today -Formal ID eval today -s/p right nephrostomy tube placement 06/04 with noted pus, -He will go home when ready for dc with the Nephrostomy tube and follow up with Urology -PICC line for [place] [facility] IV Abx 2/ CLAUS due to obstructive uropathy, resolving 3/ Hydronphrosis d/t kidney stone, Nephrostomy tube as above Lovenox for dvt prophylaxis need for inpatient: management of sepsis related to infected kidney stone and need for intervention Time Spent With Patient Time: Total time managing care of this patient today ____ minutes. Quality Stroke Does the patient have a stroke diagnosis?: No VTE Prior VTE?: No VTE Risk Level:: Medical - moderate - high VTE Device Contraindication: Treatment Not Indicated VTE Drug Contraindication: N/A - Med Ordered
[2023-06-08 10:04] LABS: Prothrombin Time 11.8 SEC (11.1-13.3)
[2023-06-08 10:17] LABS: Anion Gap 15 (12-20); Blood Urea Nitrogen 23 mg/dL (9-16); Calcium 9.8 mg/dL (8.4-10.2); Carbon Dioxide 26 mmol/L (22-29); Chloride 103 mmol/L (96-108); Creatinine Clr Calc Pharmacy 82.1; Estimated Glomerular Filt Rate > 60; Glucose Random 79 mg/dL (60-115); Potassium 3.7 mmol/L (3.3-5.1); Sodium 140 mmol/L (135-145)
--- NOTE | 2023-06-08 13:43 | MHC.CM.PN ---
Patient is planned for Home Infusion for IV ABX. PICC line is scheduled for insertion today. ID consult recommends change from IV Cefazolin to IV VANCO at discharge. Discharge is anticipated 2-3 days. Patient will need a PICC line to receive Vanco. He will need to receive the medication. A Vanco trough will be required too. [facility] care and [facility] have been notified of the change in plan.
[2023-06-08] MEDS: vancomycin/NS 2,000 MG/500 ML PLAST..BAG 250 MG IV (15:18)
--- NOTE | 2023-06-08 15:29 | PHA.PROG ---
Admission Date/Time: June 04, 2023 14:38 Indication: BAACTEREMIA Weight in k.286 kg Adjusted body weight in Kg: [place] body weight in Kg: Obesity Dosing Indication % IBW: Serum Creatinine - Last 168 Hours 06/04/23 06/05/23 06/08/23 07:48 10:52 09:48 Creatinine 1.75 H 1.34 1.00 Estimated CrCl and GFR - Last 168 Hours 06/04/23 06/05/23 06/08/23 07:48 10:52 09:48 Estim Creat Clear Calc 46.9 61.2 82.1 Estimated GFR 39 53 > 60 Vancomycin Loading Dose: 2000 MG Current Vancomycin Dosing Regimen: 1500MG Q24H Vancomycin Monitoring using AUC goal of 400 - 600 range with trough as surrogate marker: AUC 451, TROUGH 12.2 Date and Time for next Vancomycin Level to be drawn: 06/10 @1300 Pharmacist Comments on Vancomycin Plan: Vancomycin dosing will take advantage of rollApp as a clinical decision support tool that uses Bayesian modeling to calculate individual patient's pharmacokinetic parameters and forecast the patient's drug concentration time course with the target goal AUC 24 range of 400 - 600 mg/L/hr.
[2023-06-08 15:48] VITALS: BP 138/76; PULSE 57; RESP 18; TEMP 36.4; O2SAT 95
--- NOTE | 2023-06-08 16:25 | P.CNID_ITS ---
History of Present Illness Data of Consult Service Date: 06/08/23 Requesting physician: Jean Beach Primary Care Provider: AAYUSH Hanley HPI Reason for consult: sepsis,kidney stones He presents with RLQ pain for a day and had CT scan shows stent still in place. He has hydronephrosis with probable infected stones. He has multiple blood cultures with staph,some staph lugdunensis and staph intermedius. He feels better now. Review of Systems 2 Review of Systems: Yes all other systems are reviewed and are negative [facility] Past Medical History Medical History Myxomatous mitral valve PICC (peripherally inserted central catheter) in place Kidney stones Pyelonephritis MSSA bacteremia Acute kidney injury Ureteral stent present BPH (benign prostatic hyperplasia) Detached retina Hernia Family History Family History Sister Melanoma Family history: reviewed and not pertinent Surgical History Surgical History History of cystoscopy History of prostate surgery Hx of varicose vein ligation History of eye surgery History of umbilical hernia repair Social History Social History Household Members: Family Housing: House Are you a primary medical care manager to a significant other at home: No Do you presently have visiting nurse or other home services: No Alcohol intake: former Patient Tobacco Use Status: Former Tobacco user Quit Date: 20 years ago Tobacco use type: Cigarette e-Cigarette/Vaping Use: Former Use Second Hand Smoke Exposure: No Advance Directives Date on File: 12/01/22 service: No Current occupational status: employed Cognitive needs: No Hearing needs: No Vision needs: Yes Meds Allergies Allergy/AdvReac Type Severity Reaction Status Date / Time No Known Allergies Allergy Verified 06/04/23 07:41 Active Medications: Current Medications Acetaminophen (Acetaminophen 325 Mg Tablet) 650 mg PO Q6H PRN PRN Reason: Pain, Mild (Pain Scale 1-3) Last Admin: 06/05/23 15:10 Dose: 650 mg Ascorbic Acid (Ascorbic Acid 500 Mg Tablet) 500 mg PO DAILY [facility] Last Admin: 06/08/23 08:44 Dose: 500 mg Enoxaparin Sodium (Enoxaparin Sodium 30 Mg/0.3 Ml Syringe) 30 mg SUBCUT DAILY [facility] Last Admin: 06/08/23 08:44 Dose: 30 mg Finasteride (Finasteride 5 Mg Tablet) 5 mg PO MoWeFr@0900 [facility] Last Admin: 06/08/23 08:54 Dose: 5 mg Vancomycin HCl 1,500 mg/ (Sodium Chloride) 500 mls @ 333.333 mls/hr IV Q24H [facility] Magnesium Hydroxide (Milk Of Magnesia 30 Ml Oral.Susp) 30 ml PO DAILY PRN PRN Reason: Constipation Melatonin (Melatonin 3 Mg Tablet) 6 mg PO BEDTIME PRN PRN Reason: Insomnia Morphine Sulfate (Morphine Sulfate 4 Mg/Ml Cartridge) 2 mg IVPUSH Q4H PRN; Protocol PRN Reason: Pain, Severe (Pain Scale 7-10) Last Admin: 06/04/23 15:36 Dose: 2 mg Multivitamins/Vitamin C (Multivitamin Tablet) 1 tab PO DAILY [facility] Last Admin: 06/08/23 08:44 Dose: 1 tab Ondansetron HCl (Ondansetron Hcl 4 Mg/2 Ml Vial) 4 mg IVPUSH Q8H PRN PRN Reason: Nausea and Vomiting Pharmacy Consult (Consult Rx Vancomycin Dosing) 1 each MISCELLANE DAILY PRN PRN Reason: Consult order Sodium Chloride (0.9 % Sodium Chloride Flush 3 Ml Syringe) 3 ml IVFLUSH QSHIFT [facility] Last Admin: 06/08/23 15:24 Dose: Not Given Vitamin D (Cholecalciferol (Vitamin D3) 25 Mcg Tablet) 50 mcg PO DAILY [facility] Last Admin: 06/08/23 08:44 Dose: 50 mcg Zinc Sulfate (Zinc Sulfate 220 Mg Capsule) 220 mg PO DAILY [facility] Last Admin: 06/08/23 08:44 Dose: 220 mg Home Medications Medication Instructions Recorded Confirmed Last Taken Type ascorbic acid (vitamin C) 500 mg 500 mg PO DAILY 11/29/22 06/04/23 06/03/23 History tablet (Vitamin C) cholecalciferol (vitamin D3) 50 50 mcg PO DAILY 11/29/22 06/04/23 06/03/23 History mcg (2,000 unit) tablet (Vitamin D3) multivitamin 1 tab PO DAILY 11/29/22 06/04/23 06/03/23 History zinc acetate 50 mg (zinc) capsule 50 mg PO DAILY 11/29/22 06/04/23 06/03/23 History finasteride 5 mg tablet 5 mg PO MOWEFR 04/07/23 06/04/23 06/03/23 History Physical Exam 2 Vital Signs: Vital Signs: Last Vital Signs Temp 97.6 F 06/08/23 15:48 Pulse 57 06/08/23 15:48 Resp 18 06/08/23 15:48 BP 138/76 06/08/23 15:48 Pulse Ox 95 06/08/23 15:48 O2 Del Method Room Air 06/08/23 15:48 BMI result Body Mass Index 23.3 Const: General: cooperative HEENT: Head: Yes normal to inspection Face and sinus: Yes normal facial exam Mouth: Normal oral and palatal mucosa present Teeth and gingiva: d entition normal Eyes: General: appearance normal, both eyes and all related structures P upils: Equal, round and reactive pupils present Resp: Effort & Inspection: normal respiratory effort Cardio: Rate: regular rate Rhythm: regular rhythm GI: Palpation (GI): Soft to palpation and nontender : General: Yes no CVA tenderness Back/Spine/Pelvis: Back: no CVA tenderness Skin: General skin exam: no rashes or lesions noted Neuro: General: moves all extremities Cranial nerves: Yes Equal, round and reactive pupils present Extrem: General: Yes normal to inspection Psych: Appearance: grossly normal Results Labs 06/05/23 06:40 06/08/23 09:48 Labs: BMP 06/08/23 09:48 Sodium 140 Potassium 3.7 Chloride 103 Carbon Dioxide 26 BUN 23 H Creatinine 1.00 Calcium 9.8 D Microbiology Microbiology Results: Microbiology 06/06/23 10:21 Blood - Venous Blood Culture - Preliminary No growth after 48 hours. 06/04/23 14:28 Blood - Venous Blood Culture - Final Staphylococcus lugdunensis 06/04/23 14:28 Blood - Venous Blood Culture - Final Staphylococcus aureus 06/06/23 08:18 Blood - Venous Blood Culture - Preliminary No growth after 48 hours. 06/04/23 16:30 Urine Other - Nephrostomy Urine Culture - Final Staphylococcus warneri Staphylococcus intermedius 06/04/23 Unknown Urine clean catch - Urine avendaño top Urine Culture - Final Staphylococcus intermedius Assessment and Plan (1) Bacteremia: Status: Acute He has likely coagulase negative staph adherent to stent and possibly stones He has sensitivity to all likely to Vancomycin. (2) Hydronephrosis concurrent with and due to calculi of kidney and ureter: Status: Acute Plan Vancomycin for 21 days likely from first day cleared blood cultures. See Urology ?possible remove and culture stent with materials acting as foreign body possibly. Weekly Vancomycin levels and creatinine. Time Spent With Patient Time: Total time managing care of this patient today ____ minutes.
[2023-06-09] VITALS: BP 138/73; PULSE 64; RESP 16; TEMP 36.1; O2SAT 95
[2023-06-09] MEDS: 0.9 % Sodium Chloride Flush 3 ML SYRINGE IVFLUSH ×3 (00:21→15:14)
[2023-06-09 06:22] LABS: Creatinine Clr Calc Pharmacy 91.2; Estimated Glomerular Filt Rate > 60
[2023-06-09 07:18] VITALS: BP 139/77; PULSE 89; RESP 16; TEMP 36.1; O2SAT 96
[2023-06-09] MEDS: Ascorbic Acid 500 MG TABLET PO (07:52)
[2023-06-09] MEDS: Enoxaparin Sodium 30 MG/0.3 ML SYRINGE SUBCUT (07:52)
[2023-06-09] MEDS: Cholecalciferol (Vitamin D3) 25 MCG TABLET 50 MCG PO (07:52)
[2023-06-09] MEDS: Multivitamin TABLET 1 TAB PO (07:52)
[2023-06-09] MEDS: Zinc Sulfate 220 MG CAPSULE PO (07:52)
--- NOTE | 2023-06-09 09:21 | P.PNIM_ITS ---
Subjective Subjective Date of Service: 06/09/23 Physical Exam 2 Vital Signs: Vital Signs: Last Vital Signs Temp 96.9 F 06/09/23 07:18 Pulse 89 06/09/23 07:18 Resp 16 06/09/23 07:18 BP 139/77 06/09/23 07:18 Pulse Ox 96 06/09/23 07:18 O2 Del Method Room Air 06/09/23 07:18 BMI result Body Mass Index 23.3 Objective Data Active Medications Acetaminophen (Acetaminophen 325 Mg Tablet) 650 mg PO Q6H PRN PRN Reason: Pain, Mild (Pain Scale 1-3) Last Admin: 06/05/23 15:10 Dose: 650 mg Documented By: FAMILIA Ascorbic Acid (Ascorbic Acid 500 Mg Tablet) 500 mg PO DAILY [facility] Last Admin: 06/09/23 07:52 Dose: 500 mg Documented By: JOSH Heparin Sodium (Porcine) 50 (units/ Sodium Chloride 5 ml) [facility] Enoxaparin Sodium (Enoxaparin Sodium 30 Mg/0.3 Ml Syringe) 30 mg SUBCUT DAILY [facility] Last Admin: 06/09/23 07:52 Dose: 30 mg Documented By: JOSH Finasteride (Finasteride 5 Mg Tablet) 5 mg PO MoWeFr@0900 [facility] Last Admin: 06/08/23 08:54 Dose: 5 mg Documented By: JOSH Vancomycin HCl 1,500 mg/ (Sodium Chloride) 500 mls @ 333.333 mls/hr IV Q24H [facility] Magnesium Hydroxide (Milk Of Magnesia 30 Ml Oral.Susp) 30 ml PO DAILY PRN PRN Reason: Constipation Melatonin (Melatonin 3 Mg Tablet) 6 mg PO BEDTIME PRN PRN Reason: Insomnia Morphine Sulfate (Morphine Sulfate 4 Mg/Ml Cartridge) 2 mg IVPUSH Q4H PRN; Protocol PRN Reason: Pain, Severe (Pain Scale 7-10) Last Admin: 06/04/23 15:36 Dose: 2 mg Documented By: JHONNY Multivitamins/Vitamin C (Multivitamin Tablet) 1 tab PO DAILY [facility] Last Admin: 06/09/23 07:52 Dose: 1 tab Documented By: JOSH Ondansetron HCl (Ondansetron Hcl 4 Mg/2 Ml Vial) 4 mg IVPUSH Q8H PRN PRN Reason: Nausea and Vomiting Pharmacy Consult (Consult Rx Vancomycin Dosing) 1 each MISCELLANE DAILY PRN PRN Reason: Consult order Sodium Chloride (0.9 % Sodium Chloride Flush 3 Ml Syringe) 3 ml IVFLUSH QSHIFT [facility] Last Admin: 06/09/23 07:52 Dose: 3 ml Documented By: JOSH Vitamin D (Cholecalciferol (Vitamin D3) 25 Mcg Tablet) 50 mcg PO DAILY [facility] Last Admin: 06/09/23 07:52 Dose: 50 mcg Documented By: JOSH Zinc Sulfate (Zinc Sulfate 220 Mg Capsule) 220 mg PO DAILY [facility] Last Admin: 06/09/23 07:52 Dose: 220 mg Documented By: JOSH Labs 06/05/23 06:40 06/09/23 05:52 Labs: Laboratory Results - last 24 hr 06/08/23 06/09/23 09:48 05:52 PT 11.8 INR 1.0 Anion Gap 15 Estim Creat Clear Calc 82.1 91.2 Estimated GFR > 60 > 60 Random Glucose 79 Calcium 9.8 D Microbiology Microbiology Results: Microbiology 06/06/23 10:21 Blood Culture - Preliminary Blood - Venous No growth after 48 hours. 06/04/23 14:28 Blood Culture - Final Blood - Venous Staphylococcus lugdunensis 06/04/23 14:28 Blood Culture - Final Blood - Venous Staphylococcus aureus 06/06/23 08:18 Blood Culture - Preliminary Blood - Venous No growth after 48 hours. 06/04/23 16:30 Urine Culture - Final Urine Other - Nephrostomy Staphylococcus warneri Staphylococcus intermedius Assessment and Plan (1) Hydronephrosis concurrent with and due to calculi of kidney and ureter: Status: Acute (2) Bacteremia: Status: Acute Plan 68-year-old male with a history of recurrent kidney stones infection hydronephrosis stent in the past presenting with right-sided abdominal pain nausea vomiting and found to have urinary tract infection, impacted stone associated with hydronephrosis. 1/Sepsis to infected kidney stone, UTI- Urine and blood cultures as below She was initially treated with Cefazolin from 06/04 to 06/08. Following the report of final cultures, ID is recommending Vancomycin IV for 6 weeks, john diaz on 06/08. culture also growing Staph species. Repeat cultures negative over 24 hours -echo no vegetaion -s/p right nephrostomy tube on 06/04, to go home with it and follow up with urology -PICC line for IV Abx 06/09 2/ CLAUS due to obstructive uropathy, resolved, Creatine now 0.9 with GFR of 91 3/ Hydronphrosis d/t kidney stone, Nephrostomy tube as above Lovenox for dvt prophylaxis need for inpatient: management of sepsis related to infected kidney stone and need for intervention Time Spent With Patient Time: Total time managing care of this patient today ____ minutes. Quality Stroke Does the patient have a stroke diagnosis?: No VTE Prior VTE?: No VTE Risk Level:: Medical - moderate - high VTE Device Contraindication: Treatment Not Indicated VTE Drug Contraindication: N/A - Med Ordered
[2023-06-09] MEDS: vancomycin HCL 1,500 MG in 0.9 % Sodium Chloride 500 ML 333.33 MG IV (15:14)
[2023-06-09 16:00] VITALS: BP 134/79; PULSE 63; RESP 18; TEMP 36.4; O2SAT 95
[2023-06-10] VITALS: BP 125/60; PULSE 69; RESP 18; TEMP 36.5; O2SAT 95
[2023-06-10] MEDS: 0.9 % Sodium Chloride Flush 3 ML SYRINGE IVFLUSH ×4 (00:30→23:47)
[2023-06-10 06:51] LABS: Creatinine Clr Calc Pharmacy 89.2; Estimated Glomerular Filt Rate > 60
[2023-06-10 07:21] VITALS: BP 145/81; PULSE 78; RESP 16; TEMP 36.1; O2SAT 97
--- NOTE | 2023-06-10 09:05 | HO.PM.IMPN ---
Subjective Subjective Date of Service: 06/10/23 Interval History: no new issues, picc line was not done yesterday Physical Exam Vital Signs: Vital Signs: Last Vital Signs Temp 97.0 F 06/10/23 07:21 Pulse 78 06/10/23 07:21 Resp 16 06/10/23 07:21 BP 145/81 H 06/10/23 07:21 Pulse Ox 97 06/10/23 07:21 O2 Del Method Room Air 06/10/23 07:21 BMI result Body Mass Index 23.3 Const: Other: General: AO X 3, no acute distress Resp: CTA bilateral CVS: S1,S2,RRR GI/: Right-sided nephrostomy tube in place, clear urine, no abdominal pain, no flank pain. Skin: No rash Neuro: motor grossly intact Psych: appropriate affect Objective Data Active Medications Acetaminophen (Acetaminophen 325 Mg Tablet) 650 mg PO Q6H PRN PRN Reason: Pain, Mild (Pain Scale 1-3) Last Admin: 06/05/23 15:10 Dose: 650 mg Documented By: FAMILIA Ascorbic Acid (Ascorbic Acid 500 Mg Tablet) 500 mg PO DAILY [facility] Last Admin: 06/09/23 07:52 Dose: 500 mg Documented By: JOSH Heparin Sodium (Porcine) 50 (units/ Sodium Chloride 5 ml) 0 units IVFLUSH QSHICHI [facility] Last Admin: 06/10/23 00:32 Dose: Not Given Documented By: AMRIT Non-Admin Reason: no picc line yet Enoxaparin Sodium (Enoxaparin Sodium 30 Mg/0.3 Ml Syringe) 30 mg SUBCUT DAILY [facility] Last Admin: 06/09/23 07:52 Dose: 30 mg Documented By: JOSH Finasteride (Finasteride 5 Mg Tablet) 5 mg PO MoWeFr@0900 [facility] Last Admin: 06/08/23 08:54 Dose: 5 mg Documented By: JOSH Vancomycin HCl 1,500 mg/ (Sodium Chloride) 500 mls @ 333.333 mls/hr IV Q24H [facility] Last Infusion: 06/09/23 17:09 Dose: Infused Documented By: FILOMENA Magnesium Hydroxide (Milk Of Magnesia 30 Ml Oral.Susp) 30 ml PO DAILY PRN PRN Reason: Constipation Melatonin (Melatonin 3 Mg Tablet) 6 mg PO BEDTIME PRN PRN Reason: Insomnia Multivitamins/Vitamin C (Multivitamin Tablet) 1 tab PO DAILY [facility] Last Admin: 06/09/23 07:52 Dose: 1 tab Documented By: JOSH Ondansetron HCl (Ondansetron Hcl 4 Mg/2 Ml Vial) 4 mg IVPUSH Q8H PRN PRN Reason: Nausea and Vomiting Pharmacy Consult (Consult Rx Vancomycin Dosing) 1 each MISCELLANE DAILY PRN PRN Reason: Consult order Sodium Chloride (0.9 % Sodium Chloride Flush 3 Ml Syringe) 3 ml IVFLUSH QSHIFT [facility] Last Admin: 06/10/23 00:30 Dose: 3 ml Documented By: AMRIT Vitamin D (Cholecalciferol (Vitamin D3) 25 Mcg Tablet) 50 mcg PO DAILY [facility] Last Admin: 06/09/23 07:52 Dose: 50 mcg Documented By: JOSH Zinc Sulfate (Zinc Sulfate 220 Mg Capsule) 220 mg PO DAILY [facility] Last Admin: 06/09/23 07:52 Dose: 220 mg Documented By: JOSH Labs 06/05/23 06:40 06/10/23 05:47 Labs: Laboratory Results - last 24 hr 06/10/23 06/10/23 05:47 06:33 Hold Purple Top SEE NOTE Estim Creat Clear Calc 89.2 Estimated GFR > 60 Assessment and Plan (1) Hydronephrosis concurrent with and due to calculi of kidney and ureter: Status: Acute (2) Bacteremia: Status: Acute Plan 68-year-old male with a history of recurrent kidney stones infection hydronephrosis stent in the past presenting with right-sided abdominal pain nausea vomiting and found to have urinary tract infection, impacted stone associated with hydronephrosis. 1/Sepsis to infected kidney stone, UTI- Urine and blood cultures as below She was initially treated with Cefazolin from 06/04 to 06/08. Following the report of final cultures, ID is recommending Vancomycin IV for 6 weeks, john diaz on 06/08. culture also growing Staph species. Repeat cultures negative over 24 hours -echo no vegetaion -s/p right nephrostomy tube on 06/04, to go home with it and follow up with urology -PICC line for IV Abx was done yesterday as planned, hopefully today 2/ CLAUS due to obstructive uropathy, resolved, Creatine now 0.9 with GFR of 91 3/ Hydronphrosis d/t kidney stone, Nephrostomy tube as above Lovenox for dvt prophylaxis need for inpatient: management of sepsis related to infected kidney stone and need for intervention Time Spent With Patient Time: Total time managing care of this patient today ____ minutes. Quality Stroke Does the patient have a stroke diagnosis?: No VTE Prior VTE?: No VTE Risk Level:: Medical - moderate - high VTE Device Contraindication: Treatment Not Indicated VTE Drug Contraindication: N/A - Med Ordered
[2023-06-10] MEDS: Zinc Sulfate 220 MG CAPSULE PO (09:12)
[2023-06-10] MEDS: Cholecalciferol (Vitamin D3) 25 MCG TABLET 50 MCG PO (09:12)
[2023-06-10] MEDS: Multivitamin TABLET 1 TAB PO (09:12)
[2023-06-10] MEDS: Ascorbic Acid 500 MG TABLET PO (09:12)
[2023-06-10] MEDS: Enoxaparin Sodium 30 MG/0.3 ML SYRINGE SUBCUT (09:12)
[2023-06-10] MEDS: Finasteride 5 MG TABLET PO (09:16)
--- NOTE | 2023-06-10 13:36 | HO.PICC ---
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 Following completion of Kipling Protocol the skin and soft tissues were anesthetized with 1% Lidocaine plain. Using ultrasound guidance, right basilic vein access was obtained. Over an 0.018 wire through peel-away sheath, a 4 FR PowerPicc SOLO PASV with Sherlock 3CG PICC line was positioned. Catheter length is 38cm internal length, 0cm external length, for a total trimmed length of 38cm. The procedure was performed in S272. Tip verification was performed by Leticia Carrion with Sherlock 3CG. Tip located in SVC. Ultrasound was used to document vein patency and for needle entry. A formal ultrasound picture and cardiac rhythm strip was recorded. [employer]ating Inspector has released the line for use and it is currently dressed with a StatLock, Tegaderm, and CHG disc. Verification has been performed for blood return and line patency. Arm Circumference: 27cm Equipment: PowerPicc SOLO catheter with Sherlock 3CG Catheter Type: [4 FR PASV] Lot #: [id number]
--- NOTE | 2023-06-10 14:10 | MHC.CM.PN ---
Addendum entered by Fifi Llanes 06/10/23 14:21: [facility] has requested that the administration time be moved up an hour a day. There is no need to start services after hours. The med was given at 5pm yesterday 06/09/23. The RN has been notified. She understands that the medication needs to be given at 4pm today. Original Note: Patient received PICC line today. The documentation has been sent to [facility]. Patient will need to receive the Vanco thru the line prior to discharge. MD plan is for trough prior to discharge.
[2023-06-10 16:00] VITALS: BP 134/69; PULSE 99; RESP 18; TEMP 36.6; O2SAT 96
[2023-06-10 16:05] LABS: Vancomycin Random 4.8 mcg/mL (15-20)
[2023-06-10] MEDS: Heparin Sodium,Porcine Flush 50 UNITS, 0.9 % Sodium Chloride Flush 5 ML IVFLUSH ×2 (16:12→23:48)
--- NOTE | 2023-06-10 16:12 | HE.PHANOTE ---
RE: VANCO Patients level came back at 4.8. level was pulled 2 and a half hours later, true trough is probably higher. However, patient has bacteremia, will be increasing dose to 1250 mg Q12H to get level up. Next draw is after 2 doses 06/11 @1500
[2023-06-10] MEDS: vancomycin HCL 1,250 MG in 0.9 % Sodium Chloride 250 ML 166.67 MG IV (16:43)
[2023-06-10 23:45] VITALS: BP 135/75; PULSE 62; RESP 18; TEMP 37.1; O2SAT 97
[2023-06-11] MEDS: vancomycin HCL 1,250 MG in 0.9 % Sodium Chloride 250 ML 166.67 MG IV ×2 (05:11→16:57)
[2023-06-11 06:34] LABS: Creatinine Clr Calc Pharmacy 91.2; Estimated Glomerular Filt Rate > 60
--- NOTE | 2023-06-11 06:46 | PC.NURSE ---
PRN #20 GAUGE IV REMOVED FROM RIGHT FOREARM PATIENT NOW WITH A SINGLE LUMEN PICC LINE AT RIGHT UPPER ARM. ANGIO REMOVED INTACT WITH NO REDNESS OR DISCHARGE.
[2023-06-11 07:37] VITALS: BP 147/84; PULSE 94; RESP 16; TEMP 36.2; O2SAT 97
[2023-06-11] MEDS: Multivitamin TABLET 1 TAB PO (07:52)
[2023-06-11] MEDS: Enoxaparin Sodium 30 MG/0.3 ML SYRINGE SUBCUT (07:52)
[2023-06-11] MEDS: Cholecalciferol (Vitamin D3) 25 MCG TABLET 50 MCG PO (07:52)
[2023-06-11] MEDS: Ascorbic Acid 500 MG TABLET PO (07:52)
[2023-06-11] MEDS: Zinc Sulfate 220 MG CAPSULE PO (07:52)
[2023-06-11] MEDS: Heparin Sodium,Porcine Flush 50 UNITS, 0.9 % Sodium Chloride Flush 5 ML IVFLUSH ×3 (07:53→23:38)
--- NOTE | 2023-06-11 08:30 | P.PNIM_ITS ---
Subjective Subjective Date of Service: 06/11/23 Interval History: no new issues, picc line was done yesterday Physical Exam 2 Vital Signs: Vital Signs: Last Vital Signs Temp 97.1 F 06/11/23 07:37 Pulse 94 06/11/23 07:37 Resp 16 06/11/23 07:37 BP 147/84 H 06/11/23 07:37 Pulse Ox 97 06/11/23 07:37 O2 Del Method Room Air 06/11/23 07:37 BMI result Body Mass Index 23.3 Const: Other: General: AO X 3, no acute distress Resp: CTA bilateral CVS: S1,S2,RRR GI/: Right-sided nephrostomy tube in place, clear urine, no abdominal pain, no flank pain. Skin: No rash Neuro: motor grossly intact Psych: appropriate affect Objective Data Active Medications Acetaminophen (Acetaminophen 325 Mg Tablet) 650 mg PO Q6H PRN PRN Reason: Pain, Mild (Pain Scale 1-3) Last Admin: 06/05/23 15:10 Dose: 650 mg Documented By: FAMILIA Ascorbic Acid (Ascorbic Acid 500 Mg Tablet) 500 mg PO DAILY [facility] Last Admin: 06/11/23 07:52 Dose: 500 mg Documented By: MARIA LUISA Heparin Sodium (Porcine) 50 (units/ Sodium Chloride 5 ml) 0 units IVFLUSH QSHIFT [facility] Last Admin: 06/11/23 07:53 Dose: 50 unit Documented By: MARIA LUISA Enoxaparin Sodium (Enoxaparin Sodium 30 Mg/0.3 Ml Syringe) 30 mg SUBCUT DAILY [facility] Last Admin: 06/11/23 07:52 Dose: 30 mg Documented By: MARIA LUISA Finasteride (Finasteride 5 Mg Tablet) 5 mg PO MoWeFr@0900 [facility] Last Admin: 06/10/23 09:16 Dose: 5 mg Documented By: YASMIN Vancomycin HCl 1,250 mg/ (Sodium Chloride) 250 mls @ 166.667 mls/hr IV Q12H [facility] Last Infusion: 06/11/23 06:41 Dose: Infused Documented By: AMRIT Magnesium Hydroxide (Milk Of Magnesia 30 Ml Oral.Susp) 30 ml PO DAILY PRN PRN Reason: Constipation Melatonin (Melatonin 3 Mg Tablet) 6 mg PO BEDTIME PRN PRN Reason: Insomnia Multivitamins/Vitamin C (Multivitamin Tablet) 1 tab PO DAILY [facility] Last Admin: 06/11/23 07:52 Dose: 1 tab Documented By: MARIA LUISA Ondansetron HCl (Ondansetron Hcl 4 Mg/2 Ml Vial) 4 mg IVPUSH Q8H PRN PRN Reason: Nausea and Vomiting Pharmacy Consult (Consult Rx Vancomycin Dosing) 1 each MISCELLANE DAILY PRN PRN Reason: Consult order Sodium Chloride (0.9 % Sodium Chloride Flush 3 Ml Syringe) 3 ml IVFLUSH QSHIFT [facility] Last Admin: 06/10/23 23:47 Dose: 3 ml Documented By: AMRIT Vitamin D (Cholecalciferol (Vitamin D3) 25 Mcg Tablet) 50 mcg PO DAILY [facility] Last Admin: 06/11/23 07:52 Dose: 50 mcg Documented By: MARIA LUISA Zinc Sulfate (Zinc Sulfate 220 Mg Capsule) 220 mg PO DAILY [facility] Last Admin: 06/11/23 07:52 Dose: 220 mg Documented By: MARIA LUISA Labs 06/05/23 06:40 06/11/23 05:06 Labs: Laboratory Results - last 24 hr 06/10/23 06/11/23 15:25 05:06 Hold Purple Top SEE NOTE Estim Creat Clear Calc 91.2 Estimated GFR > 60 Random Vancomycin 4.8 L Assessment and Plan (1) Bacteremia: Status: Acute (2) Hydronephrosis concurrent with and due to calculi of kidney and ureter: Status: Acute Plan 68-year-old male with a history of recurrent kidney stones infection hydronephrosis stent in the past presenting with right-sided abdominal pain nausea vomiting and found to have urinary tract infection, impacted stone associated with hydronephrosis. 1/Sepsis to infected kidney stone, UTI- Urine and blood cultures as below he was initially treated with Cefazolin from 06/04 to 06/08. Following the report of final cultures, ID is recommending Vancomycin IV for 6 weeks, john diaz on 06/08. culture also growing Staph species. Repeat cultures negative over 24 hours -echo no vegetaion -s/p right nephrostomy tube on 06/04, to go home with it and follow up with urology -PICC line for IV Abx placed 06/10 2/ CLAUS due to obstructive uropathy, resolved, Creatine now 0.9 with GFR of 91 3/ Hydronphrosis d/t kidney stone, Nephrostomy tube as above Lovenox for dvt prophylaxis need for inpatient: management of sepsis related to infected kidney stone and need for intervention Possible DC later today Time Spent With Patient Time: Total time managing care of this patient today ____ minutes. Quality Stroke Does the patient have a stroke diagnosis?: No VTE Prior VTE?: No VTE Risk Level:: Medical - moderate - high VTE Device Contraindication: Treatment Not Indicated VTE Drug Contraindication: N/A - Med Ordered
[2023-06-11 15:21] LABS: Vancomycin Random 13.1 mcg/mL (15-20)
--- NOTE | 2023-06-11 15:28 | HE.PHANOTE ---
RE: TIMOTHY Patients level came back this evening at 13.1. Patients dose is currently at 1250 mg Q12H. Will continue with this dose for two more doses and get level 06/12 @1500. Predicted AUC 522
[2023-06-11 15:59] VITALS: BP 102/62; PULSE 74; RESP 16; TEMP 36.2; O2SAT 95
[2023-06-12] VITALS: BP 115/70; PULSE 67; RESP 16; TEMP 36.3; O2SAT 93
[2023-06-12] MEDS: vancomycin HCL 1,250 MG in 0.9 % Sodium Chloride 250 ML 166.67 MG IV ×2 (05:14→16:41)
[2023-06-12 06:35] LABS: Creatinine Clr Calc Pharmacy 92.2; Estimated Glomerular Filt Rate > 60
[2023-06-12 07:45] VITALS: BP 119/65; PULSE 78; RESP 20; TEMP 36.3; O2SAT 96
[2023-06-12] MEDS: Heparin Sodium,Porcine Flush 50 UNITS, 0.9 % Sodium Chloride Flush 5 ML IVFLUSH ×2 (09:45→16:42)
[2023-06-12] MEDS: Enoxaparin Sodium 30 MG/0.3 ML SYRINGE SUBCUT (09:45)
[2023-06-12] MEDS: Multivitamin TABLET 1 TAB PO (09:46)
[2023-06-12] MEDS: Zinc Sulfate 220 MG CAPSULE PO (09:46)
[2023-06-12] MEDS: Cholecalciferol (Vitamin D3) 25 MCG TABLET 50 MCG PO (09:46)
[2023-06-12] MEDS: Ascorbic Acid 500 MG TABLET PO (09:46)
[2023-06-12] MEDS: Finasteride 5 MG TABLET PO (09:58)
--- NOTE | 2023-06-12 13:09 | PM.DS ---
DS: Providers Provider Date of Service: 06/12/23 Date of admission: 06/04/23 14:38 Primary care physician: CLIF Hanley Consults: 06/05/23 08:09 Consult to Infectious Diseases Routine Consulting Provider: [facility] Infectious Disease Reason for consultation: Sepsis; infected kidney stone Has provider been notified: No DS: Diagnosis Discharge Diagnosis (1) Bacteremia: Status: Resolved (2) Hydronephrosis concurrent with and due to calculi of kidney and ureter: Status: Inactive DS: Summary Hospital Course Hospital Course: Chief Complaint: Abominal pain, nausea and vomitting 68-year-old male with past medical history of BPH, recurrent kidney stones. In Aprial of this year, he was admitted for sepsis and acute kidney injury due to acute right-sided hydronephrosis with obstructing stone complicated by MSSA bacteremia and underwent ureteral stent exchange by Urology. Kidney culture grew Enterococcus/strep species and was treated that time for 4 weeks of IV Abx. He comes in today with nausea, vomitting, abdominal pain on the right sided since yesterday, associated with chills. He has CLAUS, elevated WBC, UTI. CT of abdomen/Pelvis shows 1.4 cm impacted calculus in the proximal right ureter resulting in moderate to marked right hydroureteronephrosis and severe right perinephric stranding. A fragmented piece of the pigtail stent appears to be entrapped within the calculus. Urology is recommending Nephrostomy tube by IR Hospital course: : 68-year-old male with a history of recurrent kidney stones infection hydronephrosis stent in the past presenting with right-sided abdominal pain nausea vomiting and found to have urinary tract infection, impacted stone associated with hydronephrosis. The patient was admitted due to Sepsis to infected kidney stone, UTI- Urine and blood cultures as below he was initially treated with Cefazolin from 06/04 to 06/08. Following the report of final cultures, ID is recommending Vancomycin IV for 21, vanco sarted on 06/08. culture also growing Staph species. Repeat cultures negative over 24 hours -echo no vegetaion -s/p right nephrostomy tube on 06/04, to go home with it and follow up with urology -PICC line for IV Abx placed 06/10 2/ CLAUS due to obstructive uropathy, resolved, Creatine now 0.9 with GFR of 91 3/ Hydronphrosis d/t kidney stone, Nephrostomy tube as above Time Spent with Patient Time attestation: Total time managing care of this patient today ____ minutes. Discharge coordination time: Greater than 30 minutes Quality: Safe Use of Opioids Does Pt have an Active Cancer Diagnosis on the Problem List?: No Quality: Stroke Does the patient have a stroke diagnosis?: No Physical Exam Vital Signs: Vital Signs: Last Vital Signs Temp 97.3 F 06/12/23 07:45 Pulse 78 06/12/23 07:45 Resp 20 06/12/23 07:45 BP 119/65 06/12/23 07:45 Pulse Ox 96 06/12/23 07:45 O2 Del Method Room Air 06/12/23 00:00 BMI result Body Mass Index 23.3 DS: Data Data Completed and Pending Completed studies during hospitalization [Text1]: Procedures Dilation of Right Ureter with Intraluminal Device, Via Natural or Artificial Opening Endoscopic (11/29/22) Extirpation of Matter from Bladder, Via Natural or Artificial Opening Endoscopic (11/29/22) Extirpation of Matter from Right Ureter, Via Natural or Artificial Opening Endoscopic (11/29/22) Fluoroscopy of Right Kidney, Ureter and Bladder using Low Osmolar Contrast (11/29/22) Insertion of Infusion Device into Right Basilic Vein, Percutaneous Approach (11/29/22) Labs on day of discharge: Laboratory Results - last 24 hr 06/11/23 06/12/23 06/12/23 15:00 05:54 06:13 Hold Purple Top SEE NOTE SEE NOTE Creatinine 0.89 Estim Creat Clear Calc 92.2 Estimated GFR > 60 Random Vancomycin 13.1 L Discharge Plan Discharge Anticipated Discharge Date/Time: 06/12/23 13:00 Patient Disposition: Home Health Service Discharge Diagnosis: Bacteremia, sepsis, CLAUS, obstructive uropathy [facility]errals: [facility] [Other] - 1 Week (home infusion for iv supplies and oversight) [facility] [Outside] - 1 Day (Home services for snf for iv teaching and oversight- a nurse will call you to set up first visit) Rod Phillips MD [Physician] - 1 Week Clyde Bruner FNP-BC [Primary Care Provider] - 1 Week Discharge Medications: New vancomycin in 0.9 % sodium chl 1.25 gram/250 mL solution 1.25 g IV Q12H 15 Days Rx Instructions: 30 doses Continued multivitamin Tablet 1 tab PO DAILY zinc acetate 50 mg (zinc) Capsule 50 mg PO DAILY ascorbic acid (vitamin C) [Vitamin C] 500 mg Tablet 500 mg PO DAILY cholecalciferol (vitamin D3) [Vitamin D3] 50 mcg (2,000 unit) Tablet 50 mcg PO DAILY finasteride 5 mg tablet 5 mg PO MOWEFR Rx Instructions: 3 times a week Discharge Orders: Discharge Order (Routine); Ordered 06/12/23 Ordered By: Jean Beach Diet: Advance to usual diet Activity on Discharge: As tolerated Stand Alone Forms: Patient Portal Discharge page Care Plan Goals: Full recovery from sepsis Health Concerns: bacteremia, sepsis, renal failure, Plan of Treatment: Take Vancomyc as directed and ending June 27 Assessment: as above Discharge Date/Time: 06/12/23 18:55
--- NOTE | 2023-06-12 13:33 | MHC.CM.PN ---
DP: PT HAS BEEN MEDICALLY CLEARED FOR DC HOME WITH NEW [facility] AND [facility] FOR IV MANAGEMENT. RN AWARE. [facility] AND [facility] NOTIFIED OF TODAY'S DC. PT HAS OWN RIDE HOME.
[2023-06-12 15:26] VITALS: BP 107/61; PULSE 82; RESP 16; TEMP 36.2; O2SAT 95
[2023-06-12 16:33] LABS: Vancomycin Random 15.3 mcg/mL (15-20)
== END 2023-06-12 18:55 | disposition home health service (06) | DRG 710 ==
LOC: HO.ED 13:40 → HO.EDOVER 15:00 → HO.S3 15:15
PROVIDERS: Radiology Vascular & Interventional Radiology; Admitting Provider Internal Medicine; Emergency Provider Student in an Organized Health Care Education/Training Program; PCP Nurse Practitioner Family; Visit Provider Internal Medicine
PROC: 0T9030Z Drainage of Right Kidney with Drainage Device, Percutaneous Approach (ICD-10-PCS; principal; 2023-06-04 16:00)
DX: A41.01 Sepsis due to Methicillin susceptible Staphylococcus aureus (principal); N17.9 Acute kidney failure, unspecified; N40.0 Benign prostatic hyperplasia without lower urinary tract symptoms; N13.6 Pyonephrosis; Z87.442 Personal history of urinary calculi; Z87.891 Personal history of nicotine dependence; Z79.899 Other long term (current) drug therapy
CPT/HCPCS: 36415; 36573; 50432; 74176; 76942; 80048; 80053; 80202; 81001; 82565; 83605; 85025; 85027; 85610; 87040; 87070; 87077; 87086; 87088; 87186; 87205; 93308; 99285; C1729; C1751; C1769; C1887; C1892; C1894; J0690; J0696; J1642; J1650; J2270; J3370; J3371

== ENCOUNTER 2023-06-04 14:38 | Outpatient (BNV) | payer OTHER, SELFPAY | END 2023-06-08 07:00 | PROVIDERS: Admitting Provider Internal Medicine; Emergency Provider Student in an Organized Health Care Education/Training Program; PCP Nurse Practitioner Family; Visit Provider Internal Medicine | DX: I34.89 Other nonrheumatic mitral valve disorders (principal); I35.8 Other nonrheumatic aortic valve disorders | CPT/HCPCS: 93308 ==

== ENCOUNTER 2023-06-04 14:38 | Outpatient (BNV) | payer OTHER, SELFPAY | END 2023-06-04 16:55 | PROVIDERS: Admitting Provider Internal Medicine; Emergency Provider Student in an Organized Health Care Education/Training Program; PCP Nurse Practitioner Family; Visit Provider Radiology Vascular & Interventional Radiology | DX: N13.2 Hydronephrosis with renal and ureteral calculous obstruction (principal) | CPT/HCPCS: 50432 ==

== ENCOUNTER → 2023-06-04 14:38 | Outpatient (BNV) | payer OTHER, SELFPAY | PROVIDERS: Admitting Provider Internal Medicine; Emergency Provider Student in an Organized Health Care Education/Training Program; PCP Nurse Practitioner Family; Visit Provider Internal Medicine | DX: R78.81 Bacteremia (principal); N13.2 Hydronephrosis with renal and ureteral calculous obstruction | CPT/HCPCS: 99222 ==

== ENCOUNTER → 2023-06-04 14:38 | Outpatient (BNV) | payer OTHER, SELFPAY | PROVIDERS: Admitting Provider Internal Medicine; Emergency Provider Student in an Organized Health Care Education/Training Program; PCP Nurse Practitioner Family; Visit Provider Internal Medicine | DX: R78.81 Bacteremia (principal); N13.2 Hydronephrosis with renal and ureteral calculous obstruction | CPT/HCPCS: 99223; 99232; 99239 ==

== ENCOUNTER → 2023-06-04 14:38 | Outpatient (BNV) | payer OTHER, SELFPAY | PROVIDERS: Admitting Provider Internal Medicine; Emergency Provider Student in an Organized Health Care Education/Training Program; PCP Nurse Practitioner Family; Visit Provider Urology | DX: N17.9 Acute kidney failure, unspecified (principal); N39.0 Urinary tract infection, site not specified; N20.0 Calculus of kidney; N13.9 Obstructive and reflux uropathy, unspecified; N13.2 Hydronephrosis with renal and ureteral calculous obstruction | CPT/HCPCS: 99222; 99232 ==

== ENCOUNTER 2023-06-16 13:35 | Outpatient (AMB) | payer OTHER, SELFPAY ==
--- NOTE | 2023-06-16 13:35 | A.OFFVIS_ITS ---
Intake Intake Visit Reasons: ER follow up- Stone management Allergies No Known Allergies Allergy (Verified 06/04/23 07:41) HPI HPI Comments History of Present Illness Details Sancho is a pleasant male. He is a patient of Dr. Davis. He seen for the following urologic conditions - BPH - gross hematuria - urinary tract infection Telemedicine Evaluation 15 min Consultation [employer]reyda Video attempted [facility] for [facility] Large stone obstructed in right proximal ureter 2 stones within bladder or within distal portion bilateral ureters Nephro tube placed to drainage Discussed findings with Sancho Plan on antegrade ureteroscopy with laser lithotripsy of right-sided stone, cystoscopy with laser of stones within bladder May need repeat procedure on prostate Lower urinary tract symptoms Nocturia resolved and better emptying following procedure 04/14 GreenLight laser prostate Pathology - BPH, large prostate 200 gm - biopsy negative Gross hematuria with urinary tract infection Initial Presentation to emergency room Imaging - 11/12 CT scan large prostate with bladd er wall thickening Microbiology - 11/12 Aerococcus urinae - sensitivity p er Google search Augmentin PSA 03/14 16, 09/15 11, 03/15 8.4 15% Therapeutic plan - continue to follow [facility] Medical History (Updated 06/16/23 @ 14:28 by Rod Phlilips MD) Bladder stones Myxomatous mitral valve PICC (peripherally inserted central catheter) in place Kidney stones Pyelonephritis MSSA bacteremia Acute kidney injury Ureteral stent present BPH (benign prostatic hyperplasia) Detached retina Hernia Surgical History History of cystoscopy History of prostate surgery Hx of varicose vein ligation History of eye surgery History of umbilical hernia repair Family History Sister Melanoma Social History Household Members: Family Housing: House Are you a primary director medicare sales to a significant other at home: No Do you presently have visiting nurse or other home services: No Alcohol intake: former Patient Tobacco Use Status: Former Tobacco user Quit Date: 20 years ago Tobacco use type: Cigarette e-Cigarette/Vaping Use: Former Use Second Hand Smoke Exposure: No Advance Directives Date on File: 12/01/22 service: No Current occupational status: employed Cognitive needs: No Hearing needs: No Vision needs: Yes Review of Systems Const All systems reviewed & are unremarkable except as noted in HPI and below Reports no additional complaints Resp Reports no additional complaints GI Reports no additional complaints Reports as per HPI Musc Reports no additional complaints Physical Exam Telemedicine evaluation Appropriate responses Regular breathing rate and rhythm HEENT Head: Yes normal to inspection Ears: hearing grossly normal bilaterally Eyes General: appearance normal, both eyes and all related structures Neck Neck: Yes normal visual inspection Chest Chest palpation & inspection: normal inspection of the chest Resp Effort & Inspection: normal respiratory effort and able to speak in complete sentences Assessment & Plan Assessment & Plan (1) Hydronephrosis concurrent with and due to calculi of kidney and ureter: Code(s): N13.2 - Hydronephrosis with renal and ureteral calculous obstruction (2) Bladder stones: Code(s): N21.0 - Calculus in bladder Plan Plan on right antegrade nephrostogram with ureteroscopy laser lithotripsy stent placement, cystoscopy with bladder stone laser Patient Instructions: Imaging studies, laboratory and physical exam results were discussed and reviewed in detail. No major barriers to patient understanding were identified. An opportunity to ask questions regarding the treatment plan was provided. All questions were answered. The patient expressed understanding and agreement with the above treatment plan. The patient is aware they should contact our office by phone for worsening of their current condition or the appearance of new urologic symptoms. Compliance is encouraged with any medications and followup testing that is ordered. It is a privilege to participate in the urologic care of your patient. If you have any questions or concerns regarding treatment for the above conditions, or other urologic issues, please do not hesitate to contact me. The office telephone contact is [phone]. This note is constructed using voice recognition software. While every effort has been made to ensure accuracy embossing machine operator errors may have been included. Yours sincerely, Dr Rod Phillips MD, [facility] - Urology Providers of Expert, Compassionate Care for the Genitourinary System Telehealth Telehealth Location of provider rendering services: practice address Location of patient: address on file Patient Identification confirmed using: Name, : Yes Telehealth method: video Patient verbally consented to treatment: Yes Patient verbally consented to billing insurance company: Yes Patient informed of any privacy concerns related to visit: Yes Coding Level of Care Code Tele Est Pt Level 4 (45782) Diagnoses Hydronephrosis concurrent with and due to calculi of kidney and ureter N13.2 Bladder stones N21.0
--- NOTE | 2023-06-16 13:35 | MHC.OFFVIS ---
Intake Intake Visit Reasons: ER follow up- Stone management Intake Note: Patient is Present for Telephone Follow Up Urology Med: Finasteride Antibiotic Allergy: None Blood Thinner: None Pharamcy: CVS Allergies No Known Allergies Allergy (Verified 06/04/23 07:41) PFSH Medical History Myxomatous mitral valve PICC (peripherally inserted central catheter) in place Kidney stones Pyelonephritis MSSA bacteremia Acute kidney injury Ureteral stent present BPH (benign prostatic hyperplasia) Detached retina Hernia Surgical History History of cystoscopy History of prostate surgery Hx of varicose vein ligation History of eye surgery History of umbilical hernia repair Family History Sister Melanoma Social History Household Members: Family Housing: House Are you a primary intensive care medicine specialist to a significant other at home: No Do you presently have visiting nurse or other home services: No Alcohol intake: former Patient Tobacco Use Status: Former Tobacco user Quit Date: 20 years ago Tobacco use type: Cigarette e-Cigarette/Vaping Use: Former Use Second Hand Smoke Exposure: No Advance Directives Date on File: 12/01/22 service: No Current occupational status: employed Cognitive needs: No Hearing needs: No Vision needs: Yes Telehealth Telehealth Location of provider rendering services: practice address Location of patient: address on file Patient Identification confirmed using: Name, : Yes Telehealth method: voice only Patient verbally consented to treatment: Yes Patient verbally consented to billing insurance company: Yes Patient informed of any privacy concerns related to visit: Yes Coding
== END 2023-06-16 15:22 | disposition home or self-care (01) ==
LOC: HO.HUSH 13:35
PROVIDERS: PCP Nurse Practitioner Family; Visit Provider Urology
DX: N13.2 Hydronephrosis with renal and ureteral calculous obstruction (principal); N21.0 Calculus in bladder
CPT/HCPCS: 99214

== ENCOUNTER → 2023-06-16 13:35 | Outpatient (BNVA) | payer OTHER, SELFPAY | PROVIDERS: PCP Nurse Practitioner Family; Visit Provider Urology ==

== ENCOUNTER 2023-06-17 10:24 | Outpatient (REF) | payer OTHER, SELFPAY ==
[2023-06-17 11:12] LABS: Vancomycin Trough 14.9 mcg/mL (10.0-20.0)
[2023-06-17 11:13] LABS: Blood Urea Nitrogen 28 mg/dL (9-16); Estimated Glomerular Filt Rate > 60
== END 2023-06-17 10:25 | disposition home or self-care (01) ==
LOC: HO.HVNA 10:24
PROVIDERS: Visit Provider Internal Medicine
DX: R78.81 Bacteremia (principal); Z79.2 Long term (current) use of antibiotics
CPT/HCPCS: 36415; 80202; 82565; 84520

== ENCOUNTER 2023-06-22 11:27 | Outpatient (AMB) | payer OTHER, SELFPAY ==
--- NOTE | 2023-06-22 11:30 | MHC.OFFVIS ---
Intake Vital Signs 06/22/23 11:38 Height 6 ft 1 in Weight 184 lb BMI 24.3 BP 134/78 Pulse 80 Pulse Source Pulse Oximeter Pulse Oximetry (%) 99 Intake Visit Reasons: F/U,[facility],sepsis : infected kidney stone Allergies No Known Allergies Allergy (Verified 06/22/23 11:39) HPI F/U,[facility],sepsis : infected kidney stone HPI Details I had seen him in hospital for right infected renal stones. He had multiple coagulase negative staph bacteremia,likely related to nephrolithiasis. He has no fever or chills now. He has had therapeutic Vancomycin level at 14 most recently and no symptoms. [facility] Medical History Coagulase negative Staphylococcus bacteremia Hydronephrosis concurrent with and due to calculi of kidney and ureter Bladder stones Myxomatous mitral valve PICC (peripherally inserted central catheter) in place Kidney stones Pyelonephritis MSSA bacteremia Acute kidney injury Ureteral stent present BPH (benign prostatic hyperplasia) Detached retina Hernia Surgical History History of cystoscopy History of prostate surgery Hx of varicose vein ligation History of eye surgery History of umbilical hernia repair Family History Sister Melanoma Social History Household Members: Family Housing: House Are you a primary acute care occupational therapist to a significant other at home: No Do you presently have visiting nurse or other home services: No Alcohol intake: former Patient Tobacco Use Status: Former Tobacco user Quit Date: 20 years ago Tobacco use type: Cigarette e-Cigarette/Vaping Use: Former Use Second Hand Smoke Exposure: No Advance Directives Date on File: 12/01/22 service: No Current occupational status: employed Cognitive needs: No Hearing needs: No Vision needs: Yes Review of Systems Const All systems reviewed & are unremarkable except as noted in HPI and below Physical Exam Vital Signs: Last Vital Signs Pulse 80 06/22/23 11:38 BP 134/78 06/22/23 11:38 Pulse Ox 99 06/22/23 11:38 BMI result Body Mass Index 24.3 Const General: cooperative Orientation/consciousness: patient oriented x3 HEENT Head: Yes normal to inspection Mouth: Normal oral and palatal mucosa present Eyes General: appearance normal, both eyes and all related structures Pupils: Equal, round and reactive pupils present Resp Effort & Inspection: normal respiratory effort Cardio Rate: regular rate Rhythm: regular rhythm GI Palpation (GI): Soft to palpation and nontender General: Yes no CVA tenderness Back/Spine/Pelvis Back: no CVA tenderness Skin General skin exam: no rashes or lesions noted Neuro General: patient oriented x3 Cranial nerves: Yes CN's II-XII intact bilaterally and Yes Equal, round and reactive pupils present Extrem Other: drain right flank,serosanguinous Psych Appearance: grossly normal Assessment & Plan Assessment & Plan (1) Coagulase negative Staphylococcus bacteremia: Comment: He is doing well on Vancomycin. Code(s): R78.81 - Bacteremia; B95.7 - Other staphylococcus as the cause of diseases classified elsewhere Plan: Finish IV Vancomycin on 06/27 and pull PICC line. Po Doxycycline until finishing with stent and stone removal probable on 07/06. He remembers IV medication causing GI side effects in past but do not think it is Doxycycline but will call and let us know. No future appointment made but can see prn need. (2) Bladder stones: Code(s): N21.0 - Calculus in bladder Orders: Orders IR cvc remove any age Today B95.7 - Other staphylococcus as the cause of diseases classified elsewhere, R78.81 - Bacteremia Medications: New doxycycline hyclate 100 mg PO BID 30 days 60 tabs 0RF Coding Level of Care Code Est Pt Level 3 (18120) Diagnoses Coagulase negative Staphylococcus bacteremia R78.81; B95.7 Bladder stones N21.0
[2023-06-22 11:38] VITALS: BP 134/78; PULSE 80; O2SAT 99; BMI 24.3
== END 2023-06-22 12:02 | disposition home or self-care (01) ==
PROVIDERS: PCP Nurse Practitioner Family; Visit Provider Internal Medicine
DX: R78.81 Bacteremia (principal); B95.7 Other staphylococcus as the cause of diseases classified elsewhere; N21.0 Calculus in bladder
CPT/HCPCS: 99213

== ENCOUNTER → 2023-06-22 11:27 | Outpatient (BNVA) | payer OTHER, SELFPAY | PROVIDERS: PCP Nurse Practitioner Family; Visit Provider Internal Medicine ==

== ENCOUNTER 2023-06-24 09:56 | Outpatient (REF) | payer OTHER, SELFPAY ==
[2023-06-24 10:46] LABS: Blood Urea Nitrogen 25 mg/dL (9-16); Estimated Glomerular Filt Rate > 60; Vancomycin Trough 14.9 mcg/mL (10.0-20.0)
== END 2023-06-24 09:57 | disposition home or self-care (01) ==
LOC: HO.LNP 09:56
PROVIDERS: Visit Provider Internal Medicine
DX: R78.81 Bacteremia (principal); Z79.2 Long term (current) use of antibiotics
CPT/HCPCS: 80202; 82565; 84520

== ENCOUNTER 2023-07-01 08:35 | Outpatient (AMB) | payer OTHER, SELFPAY ==
--- NOTE | 2023-07-01 08:42 | MHC.OFFVIS ---
Intake Vital Signs 07/01/23 08:47 Height 6 ft 1 in Weight 178 lb BMI 23.5 BP 124/66 Blood Pressure Location Lt brachial Position Sitting Pulse 67 Intake Visit Reasons: Colonoscopy Screening Intake Note: Patient new consult for 3rd pre colonoscopy screening,. Patient denies any GI issues and he have 2 Colonoscopy at [place]. Shelver Required: No Accompanied by: Self / Same As Patient Allergies No Known Allergies Allergy (Verified 07/01/23 10:09) Medication List - Last Reconciled 07/01/23 by Diana Hudson PA-C ascorbic acid (vitamin C) (Vitamin C) 500 mg PO DAILY cholecalciferol (vitamin D3) (Vitamin D3) 50 mcg PO DAILY doxycycline hyclate 100 mg PO BID 30 days finasteride 5 mg PO MOWEFR multivitamin 1 tab PO DAILY vancomycin in 0.9 % sodium chl 1.25 gram/250 mL 1.25 grams (250 mL) IV Q12H 15 days zinc acetate 50 mg PO DAILY HPI HPI Comments History of Present Illness Details A 68 y/o male hx- colon polyps- > 5 years ago RB in, which time he had polyps Healthy until recent kidney stone- has stent- uncomfortable - admittered- bacteremia-he is seeing Urology back to day for follow-up Bowels are normal Appetite typically good No nausea, vomiting hematemesis, hematochezia fever chills PFSH Medical History Coagulase negative Staphylococcus bacteremia Hydronephrosis concurrent with and due to calculi of kidney and ureter Bladder stones Myxomatous mitral valve PICC (peripherally inserted central catheter) in place Kidney stones Pyelonephritis MSSA bacteremia Acute kidney injury Ureteral stent present BPH (benign prostatic hyperplasia) Detached retina Hernia Surgical History History of cystoscopy History of prostate surgery Hx of varicose vein ligation History of eye surgery History of umbilical hernia repair Family History Sister Melanoma Social History Household Members: Family Housing: House Are you a primary career development coordinator/teacher to a significant other at home: No Do you presently have visiting nurse or other home services: No Alcohol intake: former Patient Tobacco Use Status: Former Tobacco user Quit Date: 20 years ago Tobacco use type: Cigarette e-Cigarette/Vaping Use: Former Use Second Hand Smoke Exposure: No Advance Directives Date on File: 12/01/22 service: No Current occupational status: employed Cognitive needs: No Hearing needs: No Vision needs: Yes Review of Systems Const All systems reviewed & are unremarkable except as noted in HPI and below Card Denies chest pain and Denies dyspnea Resp Denies dyspnea GI Denies abdominal pain, Denies hematochezia, Denies heartburn, Denies nausea and Denies vomiting Details: stent/ inplace/ D&I-bag- sees urology today Physical Exam Vital Signs: Last Vital Signs Pulse 67 07/01/23 08:47 BP 124/66 07/01/23 08:47 BMI result Body Mass Index 23.5 Const General: cooperative and comfortable Orientation/consciousness: patient oriented x3 Limitations: no limitations Eyes Sclerae: sclerae normal Resp Effort & Inspection: normal respiratory effort and able to speak in complete sentences Auscultation: clear to auscultation bilaterally, no rales, no rhonchi and no wheezes Cardio Rate: regular rate Rhythm: regular rhythm Heart sounds: S1 normal heart sound present and S2 normal heart sound present GI Palpation (GI): Soft to palpation and nontender Auscultation: normal bowel sounds Skin General skin exam: no rashes or lesions noted Neuro General: patient oriented x3 Extrem General: Yes full ROM Psych Appearance: grossly normal and well kempt Mental Status: mental status grossly normal Speech and movement: Normal speech and movement present and Clear speech present Affect: normal affect Attitude: cooperative Thought process: Normal thought process present Thought content: Normal thought content present Insight: Good insight present (Psych) Assessment & Plan Assessment & Plan (1) History of adenomatous polyp of colon: Comment: Last colonoscopy [place] 5 years ago adenomas polyp Code(s): Z86.010 - Personal history of colonic polyps Plan: Due for polyp surveillance Plan For polyp surveillance colonoscopy MiraLax Gatorade split prep Orders: Orders Colonoscopy - GI Use Only 07/01/23 Z86.010 - Personal history of colonic polyps Medications: New bisacodyl (Dulcolax (bisacodyl)) Day before procedure, prep day Take 4 tablets by mouth upon awakening followed by large glass of water 20 mg (4 x 5 mg) PO ONCE 1 day 4 tabs 0RF colonoscopy prep Z12.11 - Encounter for screening for malignant neoplasm of colon polyethylene glycol 3350 (Miralax) Take as directed by mouth the day before your procedure. 238 grams PO ONCE 1 day PRN 238 grams 0RF laxative effect Patient Instructions: A 68-year-old male personal history colon polyps due for polyp surveillance colonoscopy Currently undergoing treatment for kidney stones Will schedule colonoscopy when timing appropriate-however poking out in to 2019 for Discussed procedure, rare risks need for escorted due to anesthesia MiraLax Gatorade prep literature given He is fully aware to report any changes in his health status, No we to barriers to understanding are identified Encouraged to call questions or concerns We appreciate the opportunity assist in care this pleasant Gent Coding Level of Care Code New Pt Level 3 (39232) Diagnoses History of adenomatous polyp of colon Z86.010
[2023-07-01 08:47] VITALS: BP 124/66; PULSE 67; BMI 23.5
== END 2023-07-01 09:30 | disposition home or self-care (01) ==
PROVIDERS: PCP Nurse Practitioner Family; Visit Provider Physician Assistant
DX: Z01.818 Encounter for other preprocedural examination (principal); Z12.11 Encounter for screening for malignant neoplasm of colon
CPT/HCPCS: S0285

== ENCOUNTER → 2023-07-01 08:35 | Outpatient (BNVA) | payer OTHER, SELFPAY | PROVIDERS: PCP Nurse Practitioner Family; Visit Provider Physician Assistant ==

== ENCOUNTER 2023-07-01 09:49 | Outpatient (AMB) | payer OTHER, SELFPAY ==
--- NOTE | 2023-07-01 10:07 | MHC.OFFVIS ---
Intake Intake Visit Reasons: cysto/H&P Surgery Allergies No Known Allergies Allergy (Verified 07/01/23 10:09) HPI HPI Comments History of Present Illness Details Sancho is a pleasant male. He is a patient of Dr. Davis. He seen for the following urologic conditions - BPH - gross hematuria - urinary tract infection [facility] 2 stones within bladder or within distal portion bilateral ureters Discussed findings with Sancho Plan on antegrade ureteroscopy with laser lithotripsy of right-sided stone, cystoscopy with laser of stones within bladder May need repeat procedure on prostate Lower urinary tract symptoms Nocturia resolved and better emptying following procedure 04/14 GreenLight laser prostate Pathology - BPH, large prostate 200 gm - biopsy negative Gross hematuria with urinary tract infection Initial Presentation to emergency room Imaging - 11/12 CT scan large prostate with bladder wall thickening Microbiology - 11/12 Aerococcus urinae - sensitivity per Google search Augmentin PSA 03/14 16, 09/15 11, 03/15 8.4 15% Therapeutic plan - continue to follow [facility] Medical History Coagulase negative Staphylococcus bacteremia Hydronephrosis concurrent with and due to calculi of kidney and ureter Bladder stones Myxomatous mitral valve PICC (peripherally inserted central catheter) in place Kidney stones Pyelonephritis MSSA bacteremia Acute kidney injury Ureteral stent present BPH (benign prostatic hyperplasia) Detached retina Hernia Surgical History History of cystoscopy History of prostate surgery Hx of varicose vein ligation History of eye surgery History of umbilical hernia repair Family History Sister Melanoma Social History Household Members: Family Housing: House Are you a primary managed care director to a significant other at home: No Do you presently have visiting nurse or other home services: No Alcohol intake: former Comment: medicated with po tylenol Patient Tobacco Use Status: Former Tobacco user Quit Date: 20 years ago Tobacco use type: Cigarette e-Cigarette/Vaping Use: Former Use Second Hand Smoke Exposure: No Advance Directives Date on File: 12/01/22 service: No Current occupational status: employed Cognitive needs: No Hearing needs: No Vision needs: Yes Review of Systems Const Denies chills and Denies fever(s) Card Reports no additional complaints and Denies syncope Resp Denies cough GI Denies abdominal pain and Denies heartburn Reports as per HPI and Denies change in libido Neuro Denies syncope Psych Denies change in libido Endo Denies change in libido Physical Exam Const General: cooperative, healthy appearing, comfortable and no acute distress Orientation/consciousness: patient oriented x3 HEENT Face and sinus: Yes normal facial exam Mouth: moist mucous membranes Neck Neck: Yes normal visual inspection, Yes full ROM and Yes trachea midline Chest Chest palpation & inspection: normal inspection of the chest Resp Effort & Inspection: normal respiratory effort, able to speak in complete sentences and no respiratory distress GI Inspection: Yes normal to inspection Back/Spine/Pelvis Cervical Spine: normal cervical lordosis Thoracic/Lumbar Spine: thoracic and lumbar spine normal to inspection Skin General skin exam: no rashes or lesions noted Neuro General: patient oriented x3, gait normal, tone normal and moves all extremities Extrem General: Yes normal to inspection and Yes capillary refill normal Assessment & Plan Assessment & Plan (1) Bladder stones: Code(s): N21.0 - Calculus in bladder (2) Renal calculus, right: Code(s): N20.0 - Calculus of kidney Plan Risks, benefits and alternatives to therapy were discussed. These include but are not limited to infection, bleeding, damage to local organs and tissues, need for further interventions. Anesthetic risks regarding cardiac arrhythmia, blood clots, and potential mortality were discussed. The patient understands the typical recovery time and the outpatient nature of the procedure. After consideration of these risks the patient gives full informed consent and they wish to move ahead with the procedure. Right antegrade, right ureteroscopy with laser lithotripsy, bladder stone lithotripsy multiple Patient Instructions: Imaging studies, laboratory and physical exam results were discussed and reviewed in detail. No major barriers to patient understanding were identified. An opportunity to ask questions regarding the treatment plan was provided. All questions were answered. The patient expressed understanding and agreement with the above treatment plan. The patient is aware they should contact our office by phone for worsening of their current condition or the appearance of new urologic symptoms. Compliance is encouraged with any medications and followup testing that is ordered. It is a privilege to participate in the urologic care of your patient. If you have any questions or concerns regarding treatment for the above conditions, or other urologic issues, please do not hesitate to contact me. The office telephone contact is [phone]. This note is constructed using voice recognition software. While every effort has been made to ensure accuracy senior mechanical engineer errors may have been included. Yours sincerely, Dr Rod Phillips MD, [facility] - Urology Providers of Expert, Compassionate Care for the Genitourinary System Coding Level of Care Code Est Pt Level 4 (69120) Diagnoses Bladder stones N21.0 Renal calculus, right N20.0
== END 2023-07-01 10:47 | disposition home or self-care (01) ==
PROVIDERS: PCP Nurse Practitioner Family; Visit Provider Urology
DX: N21.0 Calculus in bladder (principal); N20.0 Calculus of kidney
CPT/HCPCS: 99214

== ENCOUNTER 2023-07-06 12:29 | Day surgery (SDC) | payer OTHER, SELFPAY ==
[2023-07-02 16:49] VITALS: BMI 23.5
[2023-07-06] VITALS (8 sets, daily range): BP systolic 116–155; BP diastolic 65–80; PULSE 63–75; RESP 16–18; TEMP 36.3–36.6; O2SAT 95–99
--- NOTE | ~2023-07-06 | FL_ITS ---
EXAMINATION: XR FLUOROSCOPY WITH IMAGES CLINICAL INFORMATION: Bladder stone, right, intragrade. COMPARISON: CT of the abdomen and pelvis 07/06/2023 TECHNIQUE: Fluoroscopy Supervised By: Dr. Rod Phillisp. Fluoroscopy Time: 233.7 seconds. Cumulative Dose: 63.34 mGy. DAP: Not available. Images: 5. FINDINGS: There is a right nephrostomy tube. There is retroverted grade injection of the right distal ureter. There is a abrupt cut off of the contrast and filling defect. When compared with previous CT this probably represents a stone. There is some contrast getting around the stone and there is dilatation of the right renal collecting system. There is a catheter in the right distal ureter. This does not appear to pass the stone. The right distal ureter is slightly dilated down to the bladder. The bladder wall appears trabeculated. FL/FL guidance in OR IMPRESSION: Fluoroscopy guidance for right retrograde exam
[2023-07-06] MEDS: Lactated Ringers 1,000 ML 50 ML IVCONT (13:10)
--- NOTE | 2023-07-06 14:14 | MHC.SHP ---
Pre-Procedural Eval Section A Date of Service: 07/06/23 The patient is an INPATIENT: No Changes since office visit: No Cold of Flu in the past 2 weeks, No New Medical Problems, No Changes in Medication and No Patient answered all questions The History & Physical has been completed within 30 days and I have reviewed it.: Yes Section B Chief Complaint: Calculus in urethra,calculus of kidney Allergies: Allergies Allergy/AdvReac Type Severity Reaction Status Date / Time No Known Allergies Allergy Verified 07/01/23 10:09 Review of Systems Sugical H&P ROS: Negative: Constitution, Cardiovascular, Respiratory, Neurological, Psychiatric, Hem-Onc, Allergic/Immunologic, Gastrointestinal, Genitourinary, Musculoskeletal, Integumentary, Endocrine and Eyes/Ears/Nose/Throat Exam Surgical H&P Exam: Normal: HEENT, Normal: Heart, Normal: Lungs, Normal: Extremities, Normal: Abdomen, Normal: Skin and Normal: Neurological Plan Diagnosis/Plan: Unchanged ( cystoscopy, bladder stone removal, right antegrade nephrostogram with right antegrade ureteroscopy laser lithotripsy stent placement) I have reviewed the history and physical and performed a pertinent physical examination on my patient. No changes have occurred unless specified. Time Spent With Patient Time: Total time managing care of this patient today ____ minutes.
--- NOTE | 2023-07-06 14:17 | HO.ANESPROP2 ---
HPI - Anesthesia Eval Consult details Narrative: 68 yo M presenting for Cystoscopy Bladder Laser Removal,Right Intragrade Ureteroroscopy,with Laser Lithotripsy & Stent Placement. s/p nephrostomy tube. [facility] Active Problems Active Problems: All Active Problems (Updated 07/02/23 @ 14:37 by Diana Hudson PA-C) History of adenomatous polyp of colon (Acute) Coagulase negative Staphylococcus bacteremia (Acute) Bladder stones (Acute) Systolic murmur (Acute) Screening for colon cancer (Acute) Physical exam (Acute) BPH w urinary obs/LUTS (Acute) UTI (urinary tract infection), bacterial (Acute) Gross hematuria (Acute) Varicose vein of leg (Acute) Elevated PSA (Acute) Varicose veins of left lower extremity with inflammation (Acute) Varicose veins of right lower extremity with inflammation (Acute) Acute unilateral obstructive uropathy (Acute) Urinary tract infection (Acute) Blockage of stent of ureter (Acute) Hydronephrosis (Acute) Renal calculus, right (Acute) MSSA bacteremia (Acute) Past Medical History Medical History Coagulase negative Staphylococcus bacteremia Hydronephrosis concurrent with and due to calculi of kidney and ureter Bladder stones Myxomatous mitral valve PICC (peripherally inserted central catheter) in place Kidney stones Pyelonephritis MSSA bacteremia Acute kidney injury Ureteral stent present BPH (benign prostatic hyperplasia) Detached retina Hernia Family History Family History Sister Melanoma Family history of problems with anesthesia: No Surgical History Surgical History History of cystoscopy History of prostate surgery Hx of varicose vein ligation History of eye surgery History of umbilical hernia repair History of Problems with Anesthesia: No Social History Social History Household Members: Family Housing: House Are you a primary personal caregiver to a significant other at home: No Do you presently have visiting nurse or other home services: No Alcohol intake: former Patient Tobacco Use Status: Former Tobacco user Quit Date: 20 years ago Tobacco use type: Cigarette e-Cigarette/Vaping Use: Former Use Second Hand Smoke Exposure: No Have you been hit, kicked, punched, or otherwise hurt by someone within the past year? If so, by whom?: No Are you DNR?: No Advance Directives: No Advance Directives Information Provided: Yes Advance Directives Date on File: 12/01/22 Recently lost weight without trying: No Eating poorly because of decreased appetite: No Nutrition Risks: No Nutritional Risk Poor oral hygiene: No service: No Current occupational status: employed Cognitive needs: No Hearing needs: No Vision needs: Yes Meds Allergies Allergy/AdvReac Type Severity Reaction Status Date / Time No Known Allergies Allergy Verified 07/01/23 10:09 Active Medications: Current Medications Lactated Ringer's (Lr) 1,000 mls @ 50 mls/hr IVCONT .Q20H PERNELL Last Admin: 07/06/23 13:10 Dose: 50 mls/hr Levofloxacin (Levaquin) 500 mg in 100 mls @ 100 mls/hr IV PREOP ONE Stop: 07/06/23 14:54 Home Medications Medication Instructions Recorded Confirmed Last Taken Type ascorbic acid (vitamin C) 500 mg 500 mg PO DAILY 11/29/22 07/01/23 06/03/23 History tablet (Vitamin C) cholecalciferol (vitamin D3) 50 50 mcg PO DAILY 11/29/22 07/01/23 06/03/23 History mcg (2,000 unit) tablet (Vitamin D3) multivitamin 1 tab PO DAILY 11/29/22 07/01/23 06/03/23 History zinc acetate 50 mg (zinc) capsule 50 mg PO DAILY 11/29/22 07/01/23 06/03/23 History finasteride 5 mg tablet 5 mg PO MOWEFR 04/07/23 07/01/23 06/03/23 History Exam Exam Date and Time: July 06, 2023 141 Height,Weight and Vital Signs: Height 6 ft 1 in Weight 80.739 kg Last Vital Signs Temp 97.4 F 07/06/23 13:06 Pulse 75 07/06/23 13:06 Resp 18 07/06/23 13:06 BP 129/80 07/06/23 13:06 Pulse Ox 99 07/06/23 13:06 O2 Del Method Room Air 07/06/23 13:06 Airway Mallampati Class: II TM Dist: >3cm Neck ROM: Full Loose/Missing/Broken Teeth: No Heart: S1S2 Lungs: CTAB Assessment and Plan Assessment Anesthesia Assessment: Anesthesia Plan Discussed and Chart Reviewed Final Anesthetic Review Family History of Problems with Anesthesia: No History of Problems with Anesthesia: No NPO: Yes ASA Class: II Final Preanesthetic Review: No Changes in Pt Med Stat, Meds/Allgs Chart Reviewed, Consent Obtained/Reviewed and Anes Risks/Benef Reviewed Patient Risk: Low Procedure Risk: Low Anesthetic Plan Anesthetic Plan: GA and Agree w/ Assess. and Plan Disposition: Standard PACU
--- NOTE | 2023-07-06 16:04 | W.PM.OPN ---
Operative Note Operative Note Date of Service: 07/06/23 Narrative: PreOperative Diagnosis: 1. Bladder stones x2 each 2 cm 2. Right upper ureter could stone with right PCN tube in place Post Operative Diagnosis: same Procedure: - cystoscopy, right retrograde - right dilatation of ureteric orifice under fluoroscopy - right ureteroscopy, laser lithotripsy, stone basketing - bladder stone laser and fragment removal - right antegrade nephrostogram Surgeon: Dr Rod Phillips Anesthesia: General Indications for procedure: right proximal ureteric obstruction with prior right PCN placement. At the time noted to also have 2 bladder stones. Plan for stone removal, PCN removal, address bladder stones Procedure: After informed consent was verified the patient was brought to the operating room and placed in a supine position. Anesthesia was administered per protocol. The patient was placed in a modified dorsal lithotomy position and prepped and draped in a sterile fashion. Safety pause time-out and side of surgery were confirmed. Images were available for review. Antibiotic administration confirmed. A 22 Belarusian cystoscope was inserted per urethra. The urethra was without abnormality. Prostate had left lateral lobe impingement. Two 2 cm bladder stones were found within the bladder. Both ureteric orifices were seen in Position near bladder neck. The right ureteric orifice was cannulated and a retrograde examination was performed. significant distortion seen of ureter particularly right proximal ureter. Attempt was made to place with since ago. This was unsuccessfully able to navigate the obstruction. The open-ended catheter was placed to the wire. The wire was exchanged for a Glidewire. Glidewire wound around stone. Lubricated contrast was placed. The Glidewire was then able to be advanced past the stone into the renal pelvis. 4 Belarusian open-ended catheter was placed. The Glidewire was exchanged for a Sensor wire The rigid cystoscope was removed. Ureteral access sheath was placed over wire. Internal sheath placed 1st to dilate ureter. The Sensor wire was left with in the access sheath in order to provide safety. A flexible ureteroscope was placed. Stone was encountered. Using a 275 micro holmium laser fiber the stone was broken into small pieces using a combination of hammer and dusting techiques. Stone fragments were removed from the ureter using a ZeroTip basket. There appeared to be a very small fragment from a prior stent, approx 3-5 mm. this repeat to act as a nidus for the stone formation. Once the fragments were removed a decision was made to Not place a ureteric stent. Attention was directed to the 2 bladder stones. resectoscope was placed. A laser bridge was placed. A 900 nm laser fiber was then used to break each stone. Stone bladder stone settings with power of 10 joules was used. Bladder fragments was then removed. These were sent for pathology. The bladder was emptied. a right antegrade nephrostogram was performed. This showed no filling defect and good flow from the kidney to the bladder. A decision was made to remove the right PCN. This was done without difficulty. The patient tolerated the procedure well and was extubated in the operating room. They were transferred in stable condition to the recovery area. Pathology: Bladder stones Drains: none
[2023-07-06] MEDS: Phenazopyridine HCL 100 MG TABLET PO (16:31)
[2023-07-06] MEDS: Ketorolac Tromethamine 15 MG/ML VIAL IVPUSH (16:32)
[2023-07-14 16:28] LABS: Stone Source BLADDER STONE
== END 2023-07-06 17:19 | disposition home or self-care (01) ==
PROVIDERS: PCP Nurse Practitioner Family; Visit Provider Urology
PROC: (CPT 52353; principal; 2023-07-06 14:10)
DX: N20.2 Calculus of kidney with calculus of ureter (principal); N21.0 Calculus in bladder; N40.0 Benign prostatic hyperplasia without lower urinary tract symptoms; R31.0 Gross hematuria; N39.0 Urinary tract infection, site not specified; Z87.442 Personal history of urinary calculi; Z87.891 Personal history of nicotine dependence
CPT/HCPCS: 52353; 52317; 50431; 82365; 88300; C1758; C1769; J0131; J1100; J1885; J1956; J2405; J2704; J3010; Q9967

== ENCOUNTER → 2023-07-06 12:29 | Outpatient (BNV) | payer OTHER, SELFPAY | PROVIDERS: PCP Nurse Practitioner Family; Visit Provider Urology | DX: N20.1 Calculus of ureter (principal); N21.0 Calculus in bladder | CPT/HCPCS: 52317; 52353; 74420 ==

== ENCOUNTER 2023-07-21 14:50 | Outpatient (AMB) | payer OTHER, SELFPAY ==
--- NOTE | 2023-07-21 14:56 | A.OFFVIS_ITS ---
Intake Intake Visit Reasons: S/P Cystoscopy & Stent Placement Intake Note: Patient is Present for Telephone Consult Urology Med: Finasteride Antibiotic Allergy: None Blood Thinner: None Allergies No Known Allergies Allergy (Verified 07/01/23 10:09) HPI HPI Comments History of Present Illness Details Sancho is a pleasant male. He is a patient of Dr. Davis. He seen for the following urologic conditions - BPH - gross hematuria - urinary tract infection Telemedicine Evaluation 15 min Consultation [employer]reyda Video attempted Significant improvement following stone procedures Bladder stones came back struvite stones Will start suppression Plan on repeat Green light in early August Nephrolithiasis Right renal stone secondary to stent fragment 07/16 PCN required Lower urinary tract symptoms Nocturia resolved and better emptying following procedure 04/14 GreenLight laser prostate Pathology - BPH, large prostate 200 gm - biopsy negative Gross hematuria with urinary tract infection Initial Presentation to emergency room Imaging - 11/12 CT scan large prostate with bladd er wall thickening Microbiology - 11/12 Aerococcus urinae - sensitivity p er Google search Augmentin PSA 03/14 16, 09/15 11, 03/15 8.4 15% Therapeutic plan - continue to follow [facility] Medical History Coagulase negative Staphylococcus bacteremia Hydronephrosis concurrent with and due to calculi of kidney and ureter Bladder stones Myxomatous mitral valve PICC (peripherally inserted central catheter) in place Kidney stones Pyelonephritis MSSA bacteremia Acute kidney injury Ureteral stent present BPH (benign prostatic hyperplasia) Detached retina Hernia Surgical History History of cystoscopy History of prostate surgery Hx of varicose vein ligation History of eye surgery History of umbilical hernia repair Family History Sister Melanoma Social History Household Members: Family Housing: House Are you a primary technical healthcare consultant to a significant other at home: No Do you presently have visiting nurse or other home services: No Alcohol intake: former Comment: medicated with po tylenol Patient Tobacco Use Status: Former Tobacco user Quit Date: 20 years ago Tobacco use type: Cigarette e-Cigarette/Vaping Use: Former Use Second Hand Smoke Exposure: No Advance Directives Date on File: 12/01/22 service: No Current occupational status: employed Cognitive needs: No Hearing needs: No Vision needs: Yes Review of Systems Const All systems reviewed & are unremarkable except as noted in HPI and below Reports no additional complaints Resp Reports no additional complaints GI Reports no additional complaints Reports as per HPI Musc Reports no additional complaints Physical Exam Telemedicine evaluation Appropriate responses Regular breathing rate and rhythm HEENT Head: Yes normal to inspection Ears: hearing grossly normal bilaterally Eyes General: appearance normal, both eyes and all related structures Neck Neck: Yes normal visual inspection Chest Chest palpation & inspection: normal inspection of the chest Resp Effort & Inspection: normal respiratory effort and able to speak in complete sentences Assessment & Plan Assessment & Plan (1) BPH w urinary obs/LUTS: Code(s): N40.1 - Benign prostatic hyperplasia with lower urinary tract symptoms; N13.8 - Other obstructive and reflux uropathy (2) UTI (urinary tract infection), bacterial: Code(s): N39.0 - Urinary tract infection, site not specified; A49.9 - Bacterial infection, unspecified Plan Risks, benefits and alternatives to therapy were discussed. These include but are not limited to infection, bleeding, damage to local organs and tissues, need for further interventions. Anesthetic risks regarding cardiac arrhythmia, blood clots, and potential mortality were discussed. The patient understands the typical recovery time and the outpatient nature of the procedure. After consideration of these risks the patient gives full informed consent and they wish to move ahead with the procedure. Greenlight laser repeat Medications: New nitrofurantoin macrocrystal must administer with a meal/food 100 mg PO BID 60 days 120 caps 0RF N39.0 - Urinary tract infection, site not specified Patient Instructions: Imaging studies, laboratory and physical exam results were discussed and reviewed in detail. No major barriers to patient understanding were identified. An opportunity to ask questions regarding the treatment plan was provided. All questions were answered. The patient expressed understanding and agreement with the above treatment plan. The patient is aware they should contact our office by phone for worsening of their current condition or the appearance of new urologic symptoms. Compliance is encouraged with any medications and followup testing that is ordered. It is a privilege to participate in the urologic care of your patient. If you have any questions or concerns regarding treatment for the above conditions, or other urologic issues, please do not hesitate to contact me. The office telephone contact is [phone]. This note is constructed using voice recognition software. While every effort has been made to ensure accuracy mechanical test engineer errors may have been included. Yours sincerely, Dr Rod Phillips MD, [facility] - Urology Providers of Expert, Compassionate Care for the Genitourinary System Telehealth Telehealth Location of provider rendering services: practice address Location of patient: address on file Patient Identification confirmed using: Name, : Yes Telehealth method: video Patient verbally consented to treatment: Yes Patient verbally consented to billing insurance company: Yes Patient informed of any privacy concerns related to visit: Yes Coding Level of Care Code Tele Est Pt Level 3 (62582) Diagnoses BPH w urinary obs/LUTS N40.1; N13.8 UTI (urinary tract infection), bacterial N39.0; A49.9
== END 2023-07-21 15:31 ==
LOC: HO.HUSH 14:50
PROVIDERS: PCP Nurse Practitioner Family; Visit Provider Urology
DX: N40.1 Benign prostatic hyperplasia with lower urinary tract symptoms (principal); N13.8 Other obstructive and reflux uropathy; N39.0 Urinary tract infection, site not specified; A49.9 Bacterial infection, unspecified
CPT/HCPCS: 99213

== ENCOUNTER → 2023-07-21 14:50 | Outpatient (BNVA) | payer OTHER, SELFPAY | PROVIDERS: PCP Nurse Practitioner Family; Visit Provider Urology ==

== ENCOUNTER 2023-08-31 06:07 | Day surgery (SDC) | payer OTHER, SELFPAY ==
--- NOTE | 2023-08-28 10:06 | HO.ANESPROP2 ---
Documented by User: Almaz Ojeda NP 08/28/23 10:09 HPI - Anesthesia Eval Consult details Narrative: 68yo M for Laser Ablation Prostate w/Green Light Myxomatous mitral valve - no symptoms, only follows with PCP now [facility] Active Problems Active Problems: All Active Problems (Updated 07/02/23 @ 14:37 by Diana Hudson PA-C) History of adenomatous polyp of colon (Acute) Coagulase negative Staphylococcus bacteremia (Acute) Bladder stones (Acute) Systolic murmur (Acute) Screening for colon cancer (Acute) Physical exam (Acute) BPH w urinary obs/LUTS (Acute) UTI (urinary tract infection), bacterial (Acute) Gross hematuria (Acute) Varicose vein of leg (Acute) Elevated PSA (Acute) Varicose veins of left lower extremity with inflammation (Acute) Varicose veins of right lower extremity with inflammation (Acute) Acute unilateral obstructive uropathy (Acute) Urinary tract infection (Acute) Blockage of stent of ureter (Acute) Hydronephrosis (Acute) Renal calculus, right (Acute) MSSA bacteremia (Acute) Past Medical History Medical History Coagulase negative Staphylococcus bacteremia Hydronephrosis concurrent with and due to calculi of kidney and ureter Bladder stones Myxomatous mitral valve PICC (peripherally inserted central catheter) in place Kidney stones Pyelonephritis MSSA bacteremia Acute kidney injury Ureteral stent present BPH (benign prostatic hyperplasia) Detached retina Hernia Family History Family History Sister Melanoma Family history of problems with anesthesia: No Surgical History Surgical History History of cystoscopy History of prostate surgery Hx of varicose vein ligation History of eye surgery History of umbilical hernia repair History of Problems with Anesthesia: No Social History Social History Household Members: Family Housing: House Are you a primary field care coordinator to a significant other at home: No Do you presently have visiting nurse or other home services: No Alcohol intake: former Comment: medicated with po tylenol Patient Tobacco Use Status: Former Tobacco user Quit Date: 20 years ago Tobacco use type: Cigarette e-Cigarette/Vaping Use: Former Use Second Hand Smoke Exposure: No Use of substances other than those prescribed or required for medical reasons: No Are you DNR?: No Advance Directives: No Advance Directives Information Provided: Yes Advance Directives Date on File: 12/01/22 service: No Current occupational status: employed Cognitive needs: No Hearing needs: No Vision needs: Yes Meds Allergies Allergy/AdvReac Type Severity Reaction Status Date / Time No Known Allergies Allergy Verified 07/01/23 10:09 Home Medications Medication Instructions Recorded Confirmed Last Taken Type cholecalciferol (vitamin D3) 50 50 mcg PO DAILY 11/29/22 08/27/23 06/03/23 History mcg (2,000 unit) tablet (Vitamin D3) multivitamin 1 tab PO DAILY 11/29/22 08/27/23 06/03/23 History zinc acetate 50 mg (zinc) capsule 50 mg PO DAILY 11/29/22 08/27/23 06/03/23 History finasteride 5 mg tablet 5 mg PO MOWEFR 04/07/23 08/27/23 06/03/23 History Exam Pertinent Lab Results Pertinent Lab Results: Laboratory Tests 06/05/23 06/08/23 06/08/23 06:40 09:48 09:48 WBC 13.1 H Hgb 11.8 L Hct 35.8 L Plt Count 184 Sodium 140 Potassium 3.7 Chloride 103 Carbon Dioxide 26 BUN Creatinine 06/24/23 06/24/23 08:40 08:40 WBC Hgb Hct Plt Count Sodium Potassium Chloride Carbon Dioxide BUN 25 H Creatinine 1.01 Narrative Narrative: ECHO 06/2023 Conclusions: - Technically difficult study. - No obvious vegetations or valvular dysfunction based on available images. EKG 11/2022 Vent. Rate : 099 BPM Atrial Rate : 099 BPM P-R Int : 176 ms QRS Dur : 104 ms QT Int : 364 ms P-R-T Axes : 047 063 042 degrees QTc Int : 467 ms Normal sinus rhythm Normal ECG When compared with ECG of 21-APR-2022 17:31, Premature atrial complexes are no longer Present CT interval has decreased Vent. rate has increased BY 47 BPM Assessment and Plan Assessment Anesthesia Assessment: Chart Reviewed Final Anesthetic Review Family History of Problems with Anesthesia: No History of Problems with Anesthesia: No Documented by User: Chelsie Pearl MD 08/31/23 07:18 [facility] Past Medical History Medical History Coagulase negative Staphylococcus bacteremia Hydronephrosis concurrent with and due to calculi of kidney and ureter Bladder stones Myxomatous mitral valve PICC (peripherally inserted central catheter) in place Kidney stones Pyelonephritis MSSA bacteremia Acute kidney injury Ureteral stent present BPH (benign prostatic hyperplasia) Detached retina Hernia Family History Family History Sister Melanoma Surgical History Surgical History History of cystoscopy History of prostate surgery Hx of varicose vein ligation History of eye surgery History of umbilical hernia repair Social History Social History Household Members: Family Housing: House Are you a primary field care coordinator to a significant other at home: No Do you presently have visiting nurse or other home services: No Alcohol intake: former Comment: medicated with po tylenol Patient Tobacco Use Status: Former Tobacco user Quit Date: 20 years ago Tobacco use type: Cigarette e-Cigarette/Vaping Use: Former Use Second Hand Smoke Exposure: No Use of substances other than those prescribed or required for medical reasons: No Are you DNR?: No Advance Directives: No Advance Directives Information Provided: Yes Advance Directives Date on File: 12/01/22 service: No Current occupational status: employed Cognitive needs: No Hearing needs: No Vision needs: Yes Meds Allergies Allergy/AdvReac Type Severity Reaction Status Date / Time No Known Allergies Allergy Verified 07/01/23 10:09 Home Medications Medication Instructions Recorded Confirmed Last Taken Type cholecalciferol (vitamin D3) 50 50 mcg PO DAILY 11/29/22 08/27/23 06/03/23 History mcg (2,000 unit) tablet (Vitamin D3) multivitamin 1 tab PO DAILY 11/29/22 08/27/23 06/03/23 History zinc acetate 50 mg (zinc) capsule 50 mg PO DAILY 11/29/22 08/27/23 06/03/23 History finasteride 5 mg tablet 5 mg PO MOWEFR 04/07/23 08/27/23 06/03/23 History Exam Airway Mallampati Class: II (implant bottom lateral left) TM Dist: >3cm Neck ROM: Full Heart: rrr Lungs: cta Assessment and Plan Assessment Anesthesia Assessment: Anesthesia Plan Discussed Final Anesthetic Review NPO: Yes ASA Class: II Final Preanesthetic Review: No Changes in Pt Med Stat, Meds/Allgs Chart Reviewed and Consent Obtained/Reviewed Patient Risk: Intermediate Procedure Risk: Intermediate Anesthetic Plan Anesthetic Plan: GA Disposition: Standard PACU
[2023-08-31] VITALS (7 sets, daily range): BP systolic 121–135; BP diastolic 73–81; PULSE 56–68; RESP 16–18; TEMP 36.4–36.6; O2SAT 96–97; BMI 24.9
--- NOTE | 2023-08-31 07:42 | MHC.SHP ---
Pre-Procedural Eval Section A Date of Service: 08/31/23 The patient is an INPATIENT: No Changes since office visit: No Cold of Flu in the past 2 weeks, No New Medical Problems, No Changes in Medication and No Patient answered all questions The History & Physical has been completed within 30 days and I have reviewed it.: No Section B Chief Complaint: Benign prostatic hyperplasia with lower urinary tr Details of Present Illness: recurrent bladder stones here for prostate procedure Relevant Family History (Specify if Yes): No Relevant Social History: None Present Medications: see Short Stay Collaborative assessment Medical History: No relevant PMH History of Previous Operations: Relevant previous surgery/procedure and date(s) Allergies: Allergies Allergy/AdvReac Type Severity Reaction Status Date / Time No Known Allergies Allergy Verified 07/01/23 10:09 Review of Systems Sugical H&P ROS: Negative: Constitution, Cardiovascular, Respiratory, Neurological, Psychiatric, Hem-Onc, Allergic/Immunologic, Gastrointestinal, Genitourinary, Musculoskeletal, Integumentary, Endocrine and Eyes/Ears/Nose/Throat Exam Surgical H&P Exam: Normal: HEENT, Normal: Heart, Normal: Lungs, Normal: Extremities, Normal: Abdomen, Normal: Skin and Normal: Neurological Plan Diagnosis/Plan: Unchanged (laser enucleation of the prostate) I have reviewed the history and physical and performed a pertinent physical examination on my patient. No changes have occurred unless specified. Time Spent With Patient Time: Total time managing care of this patient today ____ minutes.
--- NOTE | 2023-08-31 08:51 | W.PM.OPN ---
Operative Note Operative Note Date of Service: 08/31/23 Narrative: PreOperative Diagnosis: Bladder outlet obstruction Post Operative Diagnosis: Bladder outlet obstruction Procedure: GreenLight Laser Enucleation of the prostate CPT 71510 Surgeon: Dr Rod Phillips Anesthesia: General Indications for procedure: high residual with prior bladder stones History of bladder outlet obstruction. prior procedure. On repeat cystoscopy Has left lateral lobe recurrence and superior lobe descent Procedure: After informed consent was verified the patient was brought to the operating room and placed in a supine position. Anesthesia was administered per protocol. Patient was placed in modified dorsal lithotomy position and prepped and draped in a sterile fashion. Safety pause time-out was confirmed. Antibiotics have been given. A Twenty-four Telugu laser cystoscope was inserted per urethra. No abnormalities were found of the anterior and bulbar urethra. The bladder was examined and both ureteric orifices were seen in their normal positions away from the area of interest. The prior median lobe area had been previously ablated. significant tissue was impinging from left lateral lobe and from superior aspect. Using a GreenLight laser with settings of 80 w Revised the incision at the 5 o'clock position down to the level of the veru. The veru to bladder neck was approximately 5 cm. The laser was 10-120 w. The left lateral lobe or the had a groove at the 1 o'clock position. The intervening tissue had recurred. This tissue was enucleated and removed. Significant tissue was removed and revision of the left side. The right side had some tissue in this was also removed. After the majority of tissue had been debulked remnant tissue was ablated with the side fire laser and the curve of the prostate followed up each side wall clearly defining the anterior remnant strip that remained between the 11 and 1 o'clock positions. In this case the anterior tissue protruded into the prostatic fossa and was partially ablated with the laser When this was had been completed debris and pieces of prostate were removed from the bladder with irrigation. Both ureteric orifices were reviewed again in shown to be patent in away from any areas of energy damage. The apical area was reviewed in any stray ooze was controlled. A 22 Telugu 30 cc balloon Dahl catheter was placed over a stylet into the bladder. Clear efflux was obtained upopn irrigation with a Sami piston syringe. 30 cc was placed in the balloon and gentle traction was placed. A snap was used to hold tension on the catheter to control bleeding during patient moved and transported. A drainage bag was placed. Once transportation is complete to the PACU the snap will be removed. The patient tolerated the procedure well, he was extubated in the operating and transferred in a stable condition to the recovery area. Total Power 170 kW Lasing time 25:21 Pathology: Prostate tissue Drains: Dahl catheter
== END 2023-08-31 10:26 | disposition home or self-care (01) ==
PROVIDERS: PCP Nurse Practitioner Family; Visit Provider Urology
PROC: (CPT 52648; principal; 2023-08-31 07:30)
DX: N40.1 Benign prostatic hyperplasia with lower urinary tract symptoms (principal); N13.8 Other obstructive and reflux uropathy; Z87.891 Personal history of nicotine dependence
CPT/HCPCS: 52649; 88305; J1100; J1885; J1956; J2250; J2405; J2704; J3010

== ENCOUNTER → 2023-08-31 06:07 | Outpatient (BNV) | payer OTHER, SELFPAY | PROVIDERS: PCP Nurse Practitioner Family; Visit Provider Urology | DX: N40.1 Benign prostatic hyperplasia with lower urinary tract symptoms (principal) | CPT/HCPCS: 52649 ==

== ENCOUNTER → 2023-09-03 10:28 | Outpatient (BNVA) | payer OTHER, SELFPAY | PROVIDERS: PCP Nurse Practitioner Family; Visit Provider Urology ==

== ENCOUNTER 2023-10-16 09:01 | Outpatient (AMB) | payer OTHER, SELFPAY ==
--- NOTE | 2023-10-16 09:15 | A.OFFVIS_ITS ---
Intake Intake Visit Reasons: S/P [facility] Intake Note: Patient Is Present for Post Op Follow up Procedure Done: 08/31/23 [facility] Med:Finasteride- 3x weekly Antibiotic Allergy: None Blood Thinner: None Confirmed Pharmacy: [facility] [place] Pharmacy PVR: Allergies No Known Allergies Allergy (Verified 10/16/23 09:18) HPI HPI Comments History of Present Illness Details Sancho is a pleasant male. He is a patient of Dr. Davis. He seen for the following urologic conditions - BPH - gross hematuria - urinary tract infection Follow-up for repeat [facility] PVR 0 cc - Significant improvement in flow Three-month follow-up repeat PVR and renal ultrasound We will consider coming off finasteride that point in time Nephrolithiasis Right renal stone secondary to stent fragment 07/16 PCN required Lower urinary tract symptoms Nocturia resolved and better emptying following procedure 04/14 [facility] laser prostate, 09/16 Gre en[facility] laser Pathology - BPH, large prostate 200 gm - biopsy negative Gross hematuria with urinary tract infection Initial Presentation to emergency room Imaging - 11/12 CT scan large prostate with bladd er wall thickening Microbiology - 11/12 Aerococcus urinae - sensitivity p er Google search Augmentin PSA 03/14 16, 09/15 11, 03/15 8.4 15% Therapeutic plan - continue to follow [facility] Medical History Coagulase negative Staphylococcus bacteremia Hydronephrosis concurrent with and due to calculi of kidney and ureter Bladder stones Myxomatous mitral valve PICC (peripherally inserted central catheter) in place Kidney stones Pyelonephritis MSSA bacteremia Acute kidney injury Ureteral stent present BPH (benign prostatic hyperplasia) Detached retina Hernia Surgical History History of cystoscopy History of prostate surgery Hx of varicose vein ligation History of eye surgery History of umbilical hernia repair Family History Sister Melanoma Social History Household Members: Family Housing: House Are you a primary progressive care unit registered nurse to a significant other at home: No Do you presently have visiting nurse or other home services: No Alcohol intake: former Comment: medicated with po tylenol Patient Tobacco Use Status: Former Tobacco user Quit Date: 20 years ago Tobacco use type: Cigarette e-Cigarette/Vaping Use: Former Use Second Hand Smoke Exposure: No Advance Directives Date on File: 12/01/22 service: No Current occupational status: employed Cognitive needs: No Hearing needs: No Vision needs: Yes Review of Systems Const Denies chills and Denies fever(s) Card Reports no additional complaints and Denies syncope Resp Denies cough GI Denies abdominal pain and Denies heartburn Reports as per HPI and Denies change in libido Neuro Denies syncope Psych Denies change in libido Endo Denies change in libido Physical Exam Const General: cooperative, healthy appearing, comfortable and no acute distress Orientation/consciousness: patient oriented x3 HEENT Face and sinus: Yes normal facial exam Mouth: moist mucous membranes Neck Neck: Yes normal visual inspection, Yes full ROM and Yes trachea midline Chest Chest palpation & inspection: normal inspection of the chest Resp Effort & Inspection: normal respiratory effort, able to speak in complete sentences and no respiratory distress GI Inspection: Yes normal to inspection Back/Spine/Pelvis Cervical Spine: normal cervical lordosis Thoracic/Lumbar Spine: thoracic and lumbar spine normal to inspection Skin General skin exam: no rashes or lesions noted Neuro General: patient oriented x3, gait normal, tone normal and moves all extremities Extrem General: Yes normal to inspection and Yes capillary refill normal Office Procedures Post Void Residual Post Residual Void Post Void Residual (PVR): 0 [id number]-[id number] Void Residual by ultrasound Results AMB Urinalysis, Automated UA Leukoctes 125 David/uL Last Edit by HANNA May on 10/16/23 09:29 UA Nitrite Negative Last Edit by HANNA May on 10/16/23 09:29 UA Urobilinogen 0.2 mg/dL Last Edit by HANNA May on 10/16/23 09:2 9 UA Protein 30 mg/dL Last Edit by HANNA May on 10/16/23 09:29 UA pH 5.5 Last Edit by HANNA May on 10/16/23 09:29 UA Blood 200 Ulysses/uL Last Edit by HANNA May on 10/16/23 09:29 UA Specific [place] 1.025 Last Edit by HANNA May on 10/16/23 09: 29 UA Ketone Negative Last Edit by Isaura Ibrahim RMA on 10/16/23 09:29 UA Bilirubin 0 mg/dL Last Edit by JAREK MayA on 10/16/23 09:29 UA Glucose 0 mg/dL Last Edit by HANNA May on 10/16/23 09:29 Results Reviewed Results Reviewed: Laboratory Last Values Urine pH (Auto) 5.5 10/16/23 09:29 Specific [place] (Auto) 1.025 10/16/23 09:29 Urine Protein (Auto) 30 mg/dL 10/16/23 09:29 Glucose (UA)(Auto) 0 mg/dL 10/16/23 09:29 Urine Ketones (Auto) Negative 10/16/23 09:29 Urine Blood (Auto) 200 Ulysses/uL 10/16/23 09:29 Urine Nitrite (Auto) Negative 10/16/23 09:29 Urine Bilirubin (Auto) 0 mg/dL 10/16/23 09:29 Urine Urobilinogen (Auto) 0.2 mg/dL 10/16/23 09:29 Leukocyte Esterase (Auto) 125 David/uL 10/16/23 09:29 Assessment & Plan Assessment & Plan (1) BPH w urinary obs/LUTS: Code(s): N40.1 - Benign prostatic hyperplasia with lower urinary tract symptoms; N13.8 - Other obstructive and reflux uropathy (2) Incomplete emptying of bladder due to benign prostatic hyperplasia: Code(s): N40.1 - Benign prostatic hyperplasia with lower urinary tract symptoms; R33.9 - Retention of urine, unspecified (3) Urinary tract infection: Code(s): N39.0 - Urinary tract infection, site not specified Qualifiers: Hematuria presence: without hematuria Urinary tract infection type: acute cystitis Qualified Code(s): N30.00 - Acute cystitis without hematuria Plan Repeat renal ultrasound in 3 months Orders: Orders 2 AMB Urinalysis Automated Today A49.9 - Bacterial infection, unspecified, N39.0 - Urinary tract infection, site not specified, Z13.9 - Encounter for screening, unspecified AMB Post Void Residual by ultrasound Today N13.8 - Other obstructive and reflux uropathy, N40.1 - Benign prostatic hyperplasia with lower urinary tract symptoms US renal BI 3 Months N13.30 - Unspecified hydronephrosis Patient Instructions: Imaging studies, laboratory and physical exam results were discussed and reviewed in detail. No major barriers to patient understanding were identified. An opportunity to ask questions regarding the treatment plan was provided. All questions were answered. The patient expressed understanding and agreement with the above treatment plan. The patient is aware they should contact our office by phone for worsening of their current condition or the appearance of new urologic symptoms. Compliance is encouraged with any medications and followup testing that is ordered. It is a privilege to participate in the urologic care of your patient. If you have any questions or concerns regarding treatment for the above conditions, or other urologic issues, please do not hesitate to contact me. The office telephone contact is [phone]. This note is constructed using voice recognition software. While every effort has been made to ensure accuracy personal support worker errors may have been included. Yours sincerely, Dr Rod Phillips MD, [facility] - Urology Providers of Expert, Compassionate Care for the Genitourinary System Coding Level of Care Code Est Pt Level 3 (99087) Diagnoses BPH w urinary obs/LUTS N40.1; N13.8 Incomplete emptying of bladder due to benign prostatic hyperplasia N40.1; R33.9 Acute cystitis without hematuria N30.00 Hematuria presence: without hematuria Urinary tract infection type: acute cystitis CPT Codes Post Residual Void - PVR CPT Code: 18400-Mfxq Void Residual by ultrasound ([id number])
== END 2023-10-16 09:42 | disposition home or self-care (01) ==
PROVIDERS: PCP Nurse Practitioner Family; Visit Provider Urology
DX: N40.1 Benign prostatic hyperplasia with lower urinary tract symptoms (principal); N13.8 Other obstructive and reflux uropathy; R33.9 Retention of urine, unspecified; N30.00 Acute cystitis without hematuria; Z13.9 Encounter for screening, unspecified; N39.0 Urinary tract infection, site not specified; A49.9 Bacterial infection, unspecified
CPT/HCPCS: 99024

== ENCOUNTER → 2023-10-16 09:01 | Outpatient (BNVA) | payer OTHER, SELFPAY | PROVIDERS: PCP Nurse Practitioner Family; Visit Provider Urology | DX: N40.1 Benign prostatic hyperplasia with lower urinary tract symptoms (principal); N13.8 Other obstructive and reflux uropathy; R33.8 Other retention of urine; N30.00 Acute cystitis without hematuria; Z98.890 Other specified postprocedural states | CPT/HCPCS: 51798; 81003 ==

== ENCOUNTER 2023-10-20 15:15 | Outpatient (AMB) | payer OTHER, SELFPAY ==
--- NOTE | 2023-10-20 15:19 | MHC.OFFVIS ---
Intake Intake Visit Reasons: 6 month follow up vein check Intake Note: Patient presents for a 6 month vein check. Had a right GSV venaseal on 03/20/23 and hx of left mirco on 09/22/22. Patient states his legs feel fine No pain or discomfort. Accompanied by: Self / Same As Patient Allergies No Known Allergies Allergy (Verified 10/20/23 15:22) HPI 6 month follow up vein check HPI Details Very pleasant 68-year-old gentleman presents for follow-up regarding venous disease. He had undergone significant venous surgery by us before on the right and left leg. Continues to have significant swollen and large varicosities of the left leg which have been a source of pain and discomfort. He has been extremely compliant with his compression stockings for over the past year. He now presents for routine follow-up [facility] Medical History Coagulase negative Staphylococcus bacteremia Hydronephrosis concurrent with and due to calculi of kidney and ureter Bladder stones Myxomatous mitral valve PICC (peripherally inserted central catheter) in place Kidney stones Pyelonephritis MSSA bacteremia Acute kidney injury Ureteral stent present BPH (benign prostatic hyperplasia) Detached retina Hernia Surgical History History of cystoscopy History of prostate surgery Hx of varicose vein ligation History of eye surgery History of umbilical hernia repair Family History Sister Melanoma Social History Household Members: Family Housing: House Are you a primary health care liaison to a significant other at home: No Do you presently have visiting nurse or other home services: No Alcohol intake: former Comment: medicated with po tylenol Patient Tobacco Use Status: Former Tobacco user Quit Date: 20 years ago Tobacco use type: Cigarette e-Cigarette/Vaping Use: Former Use Second Hand Smoke Exposure: No Advance Directives Date on File: 12/01/22 service: No Current occupational status: employed Cognitive needs: No Hearing needs: No Vision needs: Yes Review of Systems Const Reports as per HPI ENT Reports no additional complaints Card Denies chest pain, Denies chest pain at rest and Denies chest pain with activity Resp Denies chest congestion and Denies cough GI Reports no additional complaints Musc Details: pain over varicosities, aching of lower extremities, swelling, cramping, heaviness and tiredness, itching Denies abnormal gait Skin/Breast Reports pruritus and Denies wounds Neuro Reports no additional complaints and Denies abnormal gait Psych Denies no additional complaints Physical Exam Const General: cooperative, healthy appearing and comfortable Orientation/consciousness: oriented to person, oriented to place and oriented to time Neck Carotids: no bruits Chest Chest palpation & inspection: normal inspection of the chest and normal palpation of entire chest wall Resp Effort & Inspection: normal respiratory effort and able to speak in complete sentences Cardio Rate: regular rate Heart sounds: S1 normal heart sound present and S2 normal heart sound present Peripheral pulses: Peripheral pulses 2+ throughout GI Inspection: Yes normal to inspection Skin Other: +2 edema, large rope-like varicosities greater than 4 mm left thigh and calf CEAP Classification C4 - skin color changes Ep - Etiology Primary As - superficial veins P - reflux General skin exam: dry skin Neuro General: oriented to person, oriented to place and oriented to time Extrem Right lower extremity: full ROM, normal capillary refill and edema Left lower extremity: full ROM, normal capillary refill and edema Psych Mental Status: mental status grossly normal Assessment & Plan Assessment & Plan (1) Varicose veins of right lower extremity with inflammation: Comment: 03/20/2023 - right great saphenous vein Cyanoacralate ablation Code(s): I83.11 - Varicose veins of right lower extremity with inflammation Plan: See below (2) Varicose veins of left lower extremity with inflammation: Comment: 07/25/2022 - left great saphenous vein Cyanoacralate ablation 09/22/2022 - left leg microphlebectomy Code(s): I83.12 - Varicose veins of left lower extremity with inflammation Plan: This patient has varicose veins with inflammation. They continue to be a source of discomfort for the patient. The patient has tried conservative treatment with compression, leg elevation and exercise program for over 3 months time. They have been compliant with all treatment. This has provided minimal relief for the patient. I do not anticipate this course of treatment will alter the underlying etiology. The patient has been scheduled for lower extremity venous treatment inclusive of --- left leg microphlebectomy. Risks, benefits, and complications of this procedure has been discussed in detail with the patient including but not limited to bleeding, infection, and the development of a DVT. The patient has demonstrated a clear understanding and has consented. We will schedule the patient as soon as possible. Thank you for allowing us to participate in this patient's care. If there are any questions or concerns please do not hesitate to contact us. Coding Level of Care Code Est Pt Level 4 (65107) Diagnoses Varicose veins of right lower extremity with inflammation I83.11 Varicose veins of left lower extremity with inflammation I83.12
== END 2023-10-20 15:37 | disposition home or self-care (01) ==
PROVIDERS: PCP Nurse Practitioner Family; Visit Provider Surgery Vascular Surgery
DX: I83.11 Varicose veins of right lower extremity with inflammation (principal); I83.12 Varicose veins of left lower extremity with inflammation
CPT/HCPCS: 99214

== ENCOUNTER → 2023-10-20 15:15 | Outpatient (BNVA) | payer OTHER, SELFPAY | PROVIDERS: PCP Nurse Practitioner Family; Visit Provider Surgery Vascular Surgery ==

== ENCOUNTER 2023-11-27 07:17 | Outpatient (AMB) | payer OTHER, SELFPAY ==
--- NOTE | 2023-11-27 07:33 | A.OFFVIS_ITS ---
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: No Accompanied by: Self / Same As Patient Allergies No Known Allergies Allergy (Verified 11/27/23 07:34) [facility] Medical History Coagulase negative Staphylococcus bacteremia Hydronephrosis concurrent with and due to calculi of kidney and ureter Bladder stones Myxomatous mitral valve PICC (peripherally inserted central catheter) in place Kidney stones Pyelonephritis MSSA bacteremia Acute kidney injury Ureteral stent present BPH (benign prostatic hyperplasia) Detached retina Hernia Surgical History History of cystoscopy History of prostate surgery Hx of varicose vein ligation History of eye surgery History of umbilical hernia repair Family History Sister Melanoma Social History Household Members: Family Housing: House Are you a primary inspector health care facilities to a significant other at home: No Do you presently have visiting nurse or other home services: No Alcohol intake: former Comment: medicated with po tylenol Patient Tobacco Use Status: Former Tobacco user Quit Date: 20 years ago Tobacco use type: Cigarette e-Cigarette/Vaping Use: Former Use Second Hand Smoke Exposure: No Advance Directives Date on File: 12/01/22 service: No Current occupational status: employed Cognitive needs: No Hearing needs: No Vision needs: Yes Office Procedures Vascular Office Procedure Details Details: Diagnosis: Left Leg varicose veins with inflammation Procedure: Left leg Microphlebectomy Anesthesia: Local Infiltration 20 cc, Tumescent: 0 cc. Varicose veins were marked in the standing position on the left leg and the patient was then placed in the supine position. The left lower extremity was prepared and draped to allow knee flexion in the sterile field. The patient had large superficial varicose veins with significant symptoms of pain. It was therefore determined to perform microphlebectomies of the clusters of varicose veins. The patient had bulging varicose veins which were previously marked in the standing position. A small stab incision was made longitudinally directly overlying the varicose vein in the calf and the varicose vein was grasped with a hemostat aided by a vein hook. It was then dissected as far proximally and distally as possible and avulsed. A total of 12 stab incisions were made and the procedure of stab phlebectomies was repeated 12 times. Hemostasis was checked and stab incision sites were closed with steri-strips and sterile dressing was given with gauze and krilex wrap followed by an marv bandage. There were no complications and blood loss was minimal. Post-Op instructions were given and a follow-up appointment was recommended. [id number] - Phleb Veins, Extrem - up to 20 All charges added?: Procedure code (CPT) selection complete Assessment & Plan Assessment & Plan (1) Varicose veins of left lower extremity with inflammation: Comment: 07/25/2022 - left great saphenous vein Cyanoacralate ablation 09/22/2022 - left leg microphlebectomy 11/27/2023 - left leg microphlebectomy Code(s): I83.12 - Varicose veins of left lower extremity with inflammation Plan: See op note Coding Level of Care Code Procedure Only Diagnoses Varicose veins of left lower extremity with inflammation I83.12 CPT Codes Details - Vascular 5: 26893 - Phleb Veins, Extrem - up to 20 ([id number])
== END 2023-11-27 08:53 | disposition home or self-care (01) ==
PROVIDERS: PCP Nurse Practitioner Family; Visit Provider Surgery Vascular Surgery
DX: I83.12 Varicose veins of left lower extremity with inflammation (principal)
CPT/HCPCS: 37765

== ENCOUNTER → 2023-11-27 07:17 | Outpatient (BNVA) | payer OTHER, SELFPAY | PROVIDERS: PCP Nurse Practitioner Family; Visit Provider Surgery Vascular Surgery | DX: I83.12 Varicose veins of left lower extremity with inflammation (principal) | CPT/HCPCS: 37765 ==

== ENCOUNTER 2023-12-17 08:56 | Outpatient (AMB) | payer OTHER, SELFPAY ==
[2023-12-17 09:06] VITALS: BMI 24.4
--- NOTE | 2023-12-17 09:06 | A.OFFVIS_ITS ---
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 Patient reports that he has had pain on the lateral aspect of the hip for about 9 months now. While doing squats on a [place] machine he felt an onset of sharp pain, he has felt this pain with increased activity. The hip get stiff after prolonged periods of driving or sitting. Has no previous treatments. 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 Patient reports that he has had pain on the lateral aspect of the hip for about 9 months now. While doing squats on a [place] machine he felt an onset of sharp pain, he has felt this pain with increased activity. The hip get stiff after prolonged periods of driving or sitting. Has no previous treatments. ON LICENSE OF [facility] Medical History (Updated 12/17/23 @ 13:06 by Jorge A Decker MD) Coagulase negative Staphylococcus bacteremia Hydronephrosis concurrent with and due to calculi of kidney and ureter Bladder stones Myxomatous mitral valve PICC (peripherally inserted central catheter) in place Kidney stones Pyelonephritis MSSA bacteremia Acute kidney injury Ureteral stent present BPH (benign prostatic hyperplasia) Detached retina Hernia Surgical History (Updated 12/17/23 @ 09:10 by Viky Milan CMA) History of cystoscopy History of prostate surgery Hx of varicose vein ligation (~11/2023) History of eye surgery History of umbilical hernia repair Family History Sister Melanoma Social History (Updated 12/17/23 @ 09:10 by Viky Milan CMA) Household Members: Family Housing: House Are you a primary tire care manager to a significant other at home: No Do you presently have visiting nurse or other home services: No Alcohol intake: former Comment: medicated with po tylenol Patient Tobacco Use Status: Former Tobacco user Quit Date: 20 years ago Tobacco use type: Cigarette e-Cigarette/Vaping Use: Former Use Second Hand Smoke Exposure: No Advance Directives Date on File: 12/01/22 service: No Current occupational status: employed 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 Left hip is pain-free Results Reviewed Results Reviewed: I personally reviewed relevant radiographs. Moderate - severe right hip osteoarthritis with loss of superior joint space Assessment & Plan Assessment & Plan (1) Primary osteoarthritis of right hip: Code(s): M16.11 - Unilateral primary osteoarthritis, right hip Category: Medical Plan: This is a healthy and active 68-year-old gentleman with right hip osteoarthritis. He is limited mostly by pain with driving and getting into and out of a car. He walks with a limp but minimal pain. We discussed treatment options including physical therapy, injections and surgery. He is very active and lifts weights and I think continuing to strengthen the pelvic girdle and the core stabilizing muscles of his hip would be beneficial. Injections if his pain worsens and ultimately I do think he will need arthroplasty but he would like to think about this for a while and he will get back to me otherwise I would like to see him in 6 months' time. Orders: Orders XR pelvis 1-2V Today M25.559 - Pain in unspecified hip Coding Level of Care Code New Pt Level 4 (51672) Diagnoses Primary osteoarthritis of right hip M16.11
== END 2023-12-17 09:49 | disposition home or self-care (01) ==
PROVIDERS: PCP Nurse Practitioner Family; Visit Provider Orthopaedic Surgery
DX: M16.11 Unilateral primary osteoarthritis, right hip (principal)
CPT/HCPCS: 99203

== ENCOUNTER 2023-12-17 09:29 | Outpatient (REF) | payer OTHER, SELFPAY ==
--- NOTE | ~2023-12-17 | XR_ITS ---
EXAMINATION: XR PELVIS CLINICAL INFORMATION: Pain COMPARISON: KUB from 01/07/2023 TECHNIQUE: AP view of the pelvis. FINDINGS: The osseous pelvic ring is intact. The bones have normal alignment. Sacroiliac joints are normal. At the right hip, there is [id number] loss of superolateral joint space, subarticular sclerosis and osteophytosis. A prominent ossicle projects from the lateral acetabulum. Moderate osteoarthritis of left hip. No focal lytic or osteoblastic lesion. There are phleboliths within the lower pelvis. XR/XR pelvis 1-2V IMPRESSION: * Osteoarthritis of both hips (severe on the right and moderate on the left). * No acute fracture or malalignment.
== END 2023-12-17 09:30 | disposition home or self-care (01) ==
LOC: HO.HOSX 09:29
PROVIDERS: Visit Provider Orthopaedic Surgery
DX: M16.11 Unilateral primary osteoarthritis, right hip (principal)
CPT/HCPCS: 72170

== ENCOUNTER 2024-01-06 08:01 | Outpatient (REF) | payer OTHER, SELFPAY ==
--- NOTE | ~2024-01-06 | US_ITS ---
EXAMINATION: US RETROPERITONEAL LIMITED (RENAL ONLY) CLINICAL INFORMATION: Unspecified hydronephrosis. COMPARISON: CT abdomen and pelvis 06/04/2023. Renal ultrasound 02/18/2023. X-ray KUB 01/07/2023. TECHNIQUE: Real-time imaging of the kidneys. Limited visualization due to bowel gas. FINDINGS: RIGHT KIDNEY: 12.1 x 4.1 x 5.1 cm (SAG x AP x TRV). The kidney is normal in size, contour, and echogenicity. Renal cortical thickness is normal. No hydronephrosis. A 5 mm lower pole calculus. A 1.0 cm upper pole cluster of calculi. A 0.7 cm [id number] pole cyst with benign features. There is no indication for follow-up imaging. LEFT KIDNEY: 12.7 x 5.9 x 5.5 cm (SAG x AP x TRV). The kidney is normal in size, contour, and echogenicity. Renal cortical thickness is normal. A 6 mm upper pole calculus. No hydronephrosis. US/US renal BI IMPRESSION: Bilateral nonobstructive renal calculi. No hydronephrosis.
== END 2024-01-06 08:02 | disposition home or self-care (01) ==
LOC: HO.US 08:01
PROVIDERS: PCP Nurse Practitioner Family; Visit Provider Urology
DX: N13.30 Unspecified hydronephrosis (principal)
CPT/HCPCS: 76775

== ENCOUNTER 2024-01-15 08:34 | Outpatient (AMB) | payer OTHER, SELFPAY ==
--- NOTE | 2024-01-15 08:46 | MHC.OFFVIS ---
Intake Visit Reasons: 3m/US/PVR(set) Intake Note: Patient is Present for PVR/ Urology Med: Finasteride Antibiotic Allergy:None Blood Thinner:None Last PVR: 0ML Todays PVR: 15ml Allergies No Known Allergies Allergy (Verified 01/15/24 08:48) Medication List - Last Reconciled 01/15/24 by Rod Phillips MD cholecalciferol (vitamin D3) (Vitamin D3) 50 mcg PO DAILY finasteride 5 mg PO MOWEFR multivitamin 1 tab PO DAILY zinc acetate 50 mg PO DAILY HPI Comments Details: Sancho is a pleasant male. He is a patient of Dr. Davis. He seen for the following urologic conditions - BPH - gross hematuria - urinary tract infection Three-month follow-up PVR low Follow-up renal ultrasound with 5 mm stone bilateral and no hydronephrosis Nephrolithiasis Right renal stone secondary to stent fragment 07/16 PCN required Lower urinary tract symptoms Nocturia resolved and better emptying following procedure 04/14 GreenLight laser prostate, 09/16 GreenLight laser Pathology - BPH, large prostate 200 gm - biopsy negative Previously on finasteride Gross hematuria with urinary tract infection Initial Presentation to emergency room Imaging - 11/12 CT scan large prostate with bladder wall thickening Microbiology - 11/12 Aerococcus urinae - sensitivity per Google search Augmentin PSA 03/14 16, 09/15 11, 03/15 8.4 15% Therapeutic plan - continue to follow [facility] Medical History Coagulase negative Staphylococcus bacteremia Hydronephrosis concurrent with and due to calculi of kidney and ureter Bladder stones Myxomatous mitral valve PICC (peripherally inserted central catheter) in place Kidney stones Pyelonephritis MSSA bacteremia Acute kidney injury Ureteral stent present BPH (benign prostatic hyperplasia) Detached retina Hernia Surgical History History of cystoscopy History of prostate surgery Hx of varicose vein ligation (~11/2023) History of eye surgery History of umbilical hernia repair Family History Sister Melanoma Social History Household Members: Family Housing: House Are you a primary care transition coordinator to a significant other at home: No Do you presently have visiting nurse or other home services: No Alcohol intake: former Comment: medicated with po tylenol Patient Tobacco Use Status: Former Tobacco user Quit Date: 20 years ago Tobacco use type: Cigarette e-Cigarette/Vaping Use: Former Use Second Hand Smoke Exposure: No Advance Directives Date on File: 12/01/22 service: No Current occupational status: employed Current occupation: [employer] Cognitive needs: No Hearing needs: No Vision needs: Yes Office Procedures Post Void Residual Post Residual Void Post Void Residual (PVR): 15 [id number]-[id number] Void Residual by ultrasound Results AMB Urinalysis, Automated UA Leukoctes 70 David/uL Last Edit by HANNA May on 01/15/24 08:56 UA Nitrite Negative Last Edit by HANNA May on 01/15/24 08:56 UA Urobilinogen 0.2 mg/dL Last Edit by HANNA May on 01/15/24 08:56 UA Protein 15 mg/dL Last Edit by HANNA May on 01/15/24 08:56 UA pH 5.5 Last Edit by Isaura Ibrahim [facility] on 01/15/24 08:56 UA Blood 10 Ulysses/uL Last Edit by Isaura Ibrahim Cee on 01/15/24 08:56 UA Specific [place] 1.020 Last Edit by Isaura Ibrahim Cee on 01/15/24 08:56 UA Ketone Negative Last Edit by HANNA May on 01/15/24 08:56 UA Bilirubin 0 mg/dL Last Edit by Isaura Ibrahim [facility] on 01/15/24 08:56 UA Glucose 0 mg/dL Last Edit by Isaura Ibrahim [facility] on 01/15/24 08:56 Assessment & Plan Assessment & Plan (1) Renal calculus, right: Code(s): N20.0 - Calculus of kidney Category: Medical Plan Six-month follow-up renal ultrasound Orders: Orders AMB Post Void Residual by ultrasound Today N40.1 - Benign prostatic hyperplasia with lower urinary tract symptoms, R33.9 - Retention of urine, unspecified AMB Urinalysis Automated Today A49.9 - Bacterial infection, unspecified, N39.0 - Urinary tract infection, site not specified, Z13.9 - Encounter for screening, unspecified US renal BI 6 Months N20.0 - Calculus of kidney Patient Instructions: Imaging studies, laboratory and physical exam results were discussed and reviewed in detail. No major barriers to patient understanding were identified. An opportunity to ask questions regarding the treatment plan was provided. All questions were answered. The patient expressed understanding and agreement with the above treatment plan. The patient is aware they should contact our office by phone for worsening of their current condition or the appearance of new urologic symptoms. Compliance is encouraged with any medications and followup testing that is ordered. It is a privilege to participate in the urologic care of your patient. If you have any questions or concerns regarding treatment for the above conditions, or other urologic issues, please do not hesitate to contact me. The office telephone contact is [phone]. This note is constructed using voice recognition software. While every effort has been made to ensure accuracy lens blocker errors may have been included. Yours sincerely, Dr Rod Phillips MD, [facility] - Urology Providers of Expert, Compassionate Care for the Genitourinary System Coding Level of Care Code Est Pt Level 3 (31119) Diagnoses Renal calculus, right N20.0 CPT Codes Post Residual Void - PVR CPT Code: 57691-Chry Void Residual by ultrasound ([id number])
== END 2024-01-15 09:13 | disposition home or self-care (01) ==
PROVIDERS: PCP Nurse Practitioner Family; Visit Provider Urology
DX: Z13.9 Encounter for screening, unspecified (principal); N39.0 Urinary tract infection, site not specified; A49.9 Bacterial infection, unspecified; N20.0 Calculus of kidney
CPT/HCPCS: 99213

== ENCOUNTER → 2024-01-15 08:34 | Outpatient (BNVA) | payer OTHER, SELFPAY | PROVIDERS: PCP Nurse Practitioner Family; Visit Provider Urology | DX: N40.1 Benign prostatic hyperplasia with lower urinary tract symptoms (principal); R33.8 Other retention of urine; N20.0 Calculus of kidney; N39.0 Urinary tract infection, site not specified | CPT/HCPCS: 51798; 81003 ==

== ENCOUNTER 2024-02-16 09:10 | Outpatient (AMB) | payer OTHER, SELFPAY ==
--- NOTE | 2024-02-16 08:40 | MHC.OFFVIS ---
Vital Signs 02/16/24 09:16 Height 6 ft 1 in Weight 185 lb BMI 24.4 Intake Visit Reasons: follow up Left Micro 11/27/23 Intake Note: follow up Left Micro 11/27/23, pt states healed, feels better and looks better. States he has some large VV still. Accompanied by: Self / Same As Patient Allergies No Known Allergies Allergy (Verified 02/16/24 09:18) HPI HPI follow up Left Micro 11/27/23: Details: Very pleasant 69-year-old gentleman presents for follow-up regarding his left leg microphlebectomy. He reports he is done well with all his procedures. Pain and discomfort in general has decreased. Now presents for routine follow-up. He is doing quite well in terms of his varicosities but is been complaining about right hip pain. He actually had seen orthopedics regarding this. In addition he does have an appointment with QUE Wilkins which is pending. He now presents to us for follow-up. [facility] Medical History Coagulase negative Staphylococcus bacteremia Hydronephrosis concurrent with and due to calculi of kidney and ureter Bladder stones Myxomatous mitral valve PICC (peripherally inserted central catheter) in place Kidney stones Pyelonephritis MSSA bacteremia Acute kidney injury Ureteral stent present BPH (benign prostatic hyperplasia) Detached retina Hernia Surgical History (Updated 02/16/24 @ 09:23 by HANNA Grewal) Status post ablation of incompetent vein using laser (07/25/22) History of cystoscopy History of prostate surgery Hx of varicose vein ligation (~11/2023) History of eye surgery History of umbilical hernia repair Family History Sister Melanoma Social History Household Members: Family Housing: House Are you a primary respiratory care instructor to a significant other at home: No Do you presently have visiting nurse or other home services: No Alcohol intake: former Comment: medicated with po tylenol Patient Tobacco Use Status: Former Tobacco user Tobacco use type: Cigarette e-Cigarette/Vaping Use: Former Use Second Hand Smoke Exposure: No Advance Directives Date on File: 12/01/22 service: No Current occupational status: employed 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 - [employer] Cognitive needs: No Hearing needs: No Vision needs: Yes Review of Systems Const All systems reviewed & are unremarkable except as noted in HPI and below Reports no additional complaints ENT Reports Normal hearing present Card Denies chest pain, Denies chest pain at rest, Denies chest pain with activity and Denies pedal edema Resp Denies cough GI Denies abdominal pain Musc Denies abnormal gait, Denies muscle cramps and Denies radiating pain into limb Skin/Breast Denies skin ulcer and Denies wounds Neuro Reports Normal hearing present and Denies abnormal gait Psych Reports no additional complaints Physical Exam Vital Signs: BMI result Body Mass Index 24.4 Const General: cooperative, healthy appearing and comfortable Orientation/consciousness: oriented to person, oriented to place and oriented to time HEENT Head: Yes normal to inspection Neck Neck: Yes normal visual inspection Carotids: no bruits Chest Chest palpation & inspection: normal inspection of the chest Resp Effort & Inspection: normal respiratory effort and able to speak in complete sentences Auscultation: clear to auscultation bilaterally, no crackles, no rales, no rhonchi and no wheezes Cardio Rate: regular rate Rhythm: regular rhythm Heart sounds: S1 normal heart sound present and S2 normal heart sound present Bruits: no carotid bruits Peripheral pulses: Peripheral pulses 2+ throughout GI Inspection: Yes normal to inspection Skin Wounds: no wounds Hair: normal Neuro General: oriented to person, oriented to place and oriented to time Cranial nerves: Yes CN's II-XII intact bilaterally and Yes Normal hearing present Cognition (Neuro): normal cognition Motor exam (neuro): 5/5 motor strength present throughout Extrem Other: venous exam: No significant superficial varicosities or spider telangiectasias, minimal edema General: No clubbing, No cyanosis and No edema Psych Appearance: grossly normal Mental Status: mental status grossly normal Speech and movement: Normal speech and movement present Assessment & Plan Assessment & Plan (1) Varicose veins of right lower extremity with inflammation: Comment: 03/20/2023 - right great saphenous vein Cyanoacralate ablation Code(s): I83.11 - Varicose veins of right lower extremity with inflammation Category: Medical Plan: The patient has done extremely well with all venous treatments. Patient's may often experience postprocedure phlebitic episodes and I have discussed with the patient use of warm compresses and NSAIDS if tolerated for pain discomfort. In addition, I have discussed continued conservative measures including use of compression, leg elevation, and exercise. The patient was also given an information sheet regarding appropriate use of compression stockings and future purchases. Thank you for allowing us to care for your patient with venous disease. (2) Varicose veins of left lower extremity with inflammation: Comment: 07/25/2022 - left great saphenous vein Cyanoacralate ablation 09/22/2022 - left leg microphlebectomy 11/27/2023 - left leg microphlebectomy Code(s): I83.12 - Varicose veins of left lower extremity with inflammation Category: Medical Plan: He does have some residual varicosities but at the current time would like to manage them conservatively should they become a problem in the future will readdress at that time. He was instructed to call us should there become an issue (3) Primary osteoarthritis of right hip: Code(s): M16.11 - Unilateral primary osteoarthritis, right hip Category: Medical Plan: He does have right hip pain. He is managing conservatively with orthopedics with Dr. Decker at the current time. He was interested in getting an assessment by pain management. We will facilitate the referral. Thank you for allowing us to assist in this patient's care. Orders: Referrals Pain Management Referral M25.551 - Pain in right hip Coding Level of Care Code Est Pt Level 3 (71376) Diagnoses Varicose veins of right lower extremity with inflammation I83.11 Varicose veins of left lower extremity with inflammation I83.12 Primary osteoarthritis of right hip M16.11
[2024-02-16 09:16] VITALS: BMI 24.4
== END 2024-02-16 09:43 | disposition home or self-care (01) ==
PROVIDERS: PCP Nurse Practitioner Family; Visit Provider Surgery Vascular Surgery
DX: I83.11 Varicose veins of right lower extremity with inflammation (principal); I83.12 Varicose veins of left lower extremity with inflammation; M16.11 Unilateral primary osteoarthritis, right hip
CPT/HCPCS: 99213

== ENCOUNTER → 2024-02-16 09:10 | Outpatient (BNVA) | payer OTHER, SELFPAY | PROVIDERS: PCP Nurse Practitioner Family; Visit Provider Surgery Vascular Surgery ==

== ENCOUNTER 2024-03-07 08:34 | Outpatient (AMB) | payer OTHER, SELFPAY ==
--- NOTE | 2024-03-07 08:38 | MHC.OFFVIS ---
Vital Signs 03/07/24 08:43 Height 6 ft 1 in Weight 189 lb 4 oz BMI 25.0 BP 132/80 Blood Pressure Location Lt brachial Position Sitting Respiration 16 Pulse 67 Pulse Source Pulse Oximeter Pulse Oximetry (%) 96 Oxygen Delivery Method Room Air Intake Visit Reasons: Pain in Right Hip Intake Note: Patient comes in for initial visit was referred by [facility]. Reports pain 6/10. Allergies No Known Allergies Allergy (Verified 03/07/24 08:43) HPI Comments Details: Sancho is very pleasant 69 years old gentleman who presents in my office with complains on pain in the right hip pain in bilateral knees and moderate pain in the lower back. He reports that he is suffering from osteoarthritis for many years. He had hip x-ray performed and the results are available demonstrating right hip advanced arthritis. He reports that he can not sleep normally he can not do activities of daily living he can not take care of himself but he can not function normally. 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 He reports that weather changes in movements aggravate his pain. In terms of tissue damage he reports his pain as pulsing, throbbing, pounding, stabbing, lancinating, sharp, lacerating, dull, hurting, heavy, tiring, exhausting,. He had physical therapy for the lower back and he does continue home exercise program and low-impact aerobic exercises including elliptical machine and stationary bicycle. He never had x-ray of bilateral hips. He had an MRI of the lumbar spine results of which are not available to me. He never had any injections in his joints. His past medical history significant for benign heart murmur. He had multiple surgical history including history for enlarged prostate history of kidney surgery bladder stone surgery and vascular surgery removal of the varicosities. He denies smoking cigarettes he stopped 23 years ago he denies drinking alcohol stopped 42 years ago drinks 2 coffees a day but denies drinking soda he denies recreational drugs. [facility], [facility] Medical History (Updated 03/07/24 @ 09:28 by Zaire Gutierrez MD) Coagulase negative Staphylococcus bacteremia Hydronephrosis concurrent with and due to calculi of kidney and ureter Bladder stones Myxomatous mitral valve PICC (peripherally inserted central catheter) in place Kidney stones Pyelonephritis MSSA bacteremia Acute kidney injury Ureteral stent present BPH (benign prostatic hyperplasia) Detached retina Hernia Surgical History (Updated 02/16/24 @ 09:23 by HANNA Grewal) Status post ablation of incompetent vein using laser (07/25/22) History of cystoscopy History of prostate surgery Hx of varicose vein ligation (~11/2023) History of eye surgery History of umbilical hernia repair Family History Sister Melanoma Social History Household Members: Family Housing: House Are you a primary rn acute care to a significant other at home: No Do you presently have visiting nurse or other home services: No Alcohol intake: former Comment: medicated with po tylenol Patient Tobacco Use Status: Former Tobacco user Tobacco use type: Cigarette e-Cigarette/Vaping Use: Former Use Second Hand Smoke Exposure: No Advance Directives Date on File: 12/01/22 service: No Current occupational status: employed 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 - [employer] Cognitive needs: No Hearing needs: No Vision needs: Yes Review of Systems Const Reports no additional complaints ENT Reports Normal hearing present Card Reports no additional complaints Resp Reports no additional complaints GI Reports no additional complaints Reports no additional complaints Musc Reports no additional complaints Neuro Reports no additional complaints, Reports Normal hearing present, Denies Abnormal speech present, Denies confusion and Denies Sensory deficit (Neuro) Psych Reports no additional complaints and Denies confusion Physical Exam Vital Signs: Last Vital Signs Pulse 67 03/07/24 08:43 Resp 16 03/07/24 08:43 BP 132/80 03/07/24 08:43 Pulse Ox 96 03/07/24 08:43 Oxygen Delivery Method Room Air 03/07/24 08:43 BMI result Body Mass Index 25.0 Const General: no acute distress; No confusion Nutritional Appearance: obese morbidly obese Orientation/consciousness: patient oriented x3 and No confusion Eyes General: appearance normal, both eyes and all related structures Pupils: Equal, round and reactive pupils present EOM: EOMs intact bilaterally Neck Neck: Yes full ROM Chest Chest palpation & inspection: normal inspection of the chest Resp Effort & Inspection: normal respiratory effort, able to speak in complete sentences, normal respiratory pattern, no audible wheezes and no cough Cardio Jugular venous distension: no JVD GI Inspection: Yes normal to inspection Neuro General: patient oriented x3, gait normal and No confusion Cranial nerves: Yes CN's II-XII intact bilaterally, Yes Equal, round and reactive pupils present, Yes Normal hearing present and Yes Ability to bilaterally elevate shoulders present Speech: No Abnormal speech present Gait exam (Neuro): Normal gait present Motor exam (neuro): 5/5 motor strength present throughout Sensory Exam: No Sensory deficit (Neuro) Extrem Other: Armando test is negative on the right. Lateral rotation of the right hip aggravates the pain in the groin and in the projection of the trochanter area. Performance of Armando test aggravates pain in the right hip going down the right thigh. General: No pedal edema Psych Speech and movement: Normal speech and movement present Affect: normal affect Attitude: cooperative Thought process: Normal thought process present Thought content: Normal thought content present Insight: Good insight present (Psych) Judgement: Good judgement present (Psych) Results Reviewed Results Reviewed: 12/17/23 XR pelvis 1-2V CLINICAL INFORMATION: Pain FINDINGS: The osseous pelvic ring is intact. The bones have normal alignment. Sacroiliac joints are normal. At the right hip, there is [id number] loss of superolateral joint space, subarticular sclerosis and osteophytosis. A prominent ossicle projects from the lateral acetabulum. Moderate osteoarthritis of left hip. No focal lytic or osteoblastic lesion. There are phleboliths within the lower pelvis. IMPRESSION: * Osteoarthritis of both hips (severe on the right and moderate on the left). * No acute fracture or malalignment. Assessment & Plan Assessment & Plan (1) Osteoarthritis of left knee: Code(s): M17.12 - Unilateral primary osteoarthritis, left knee Category: Medical (2) Osteoarthritis of right knee: Code(s): M17.11 - Unilateral primary osteoarthritis, right knee Category: Medical (3) Osteoarthritis: Code(s): M19.90 - Unspecified osteoarthritis, unspecified site Category: Medical (4) Primary osteoarthritis of right hip: Code(s): M16.11 - Unilateral primary osteoarthritis, right hip Category: Medical (5) Primary osteoarthritis of left hip: Code(s): M16.12 - Unilateral primary osteoarthritis, left hip Category: Medical (6) Low back pain: Code(s): M54.50 - Low back pain, unspecified Category: Medical Plan This patient came to me with complains on multiple pain generators. The most pronounced pain he experiences from right hip were is demonstrable advanced osteoarthritis. He is interested in PRP injection. We had prolonged and detailed conversation today about this procedure, we discussed his arthritis, we discussed his lower back pain as well. I will schedule him for PRP injection. The nature of the procedure was explained to the patient, the fact that insurance companies do not cover this procedure was explained to the patient. The [id number] [place] was explained to the patient. As of his knees I will send him for bilateral knee x-ray. It looks like that he never had x-ray of bilateral knees. As of his lower back pain he had an MRI in the past which demonstrated disc degeneration. If he will bring me the report of the old MRI I will be able to schedule him for the MRI of the lumbar spine to see the advancement of the disease. Orders: Orders XR knee LT 3V Today M17.12 - Unilateral primary osteoarthritis, left knee XR knee RT 3V Today M17.11 - Unilateral primary osteoarthritis, right knee Patient Instructions: I here by testify that I spent 48 minutes in conversation with this patient as well as planning his care and organizing this note. Coding Level of Care Code New Pt Level 4 (38956) Diagnoses Osteoarthritis of left knee M17.12 Osteoarthritis of right knee M17.11 Osteoarthritis M19.90 Primary osteoarthritis of right hip M16.11 Primary osteoarthritis of left hip M16.12 Low back pain M54.50
[2024-03-07 08:43] VITALS: BP 132/80; PULSE 67; RESP 16; O2SAT 96; BMI 25.0
== END 2024-03-07 09:29 | disposition home or self-care (01) ==
PROVIDERS: PCP Nurse Practitioner Family; Referring Provider Surgery Vascular Surgery; Visit Provider Anesthesiology
DX: M17.0 Bilateral primary osteoarthritis of knee (principal); M19.90 Unspecified osteoarthritis, unspecified site; M16.0 Bilateral primary osteoarthritis of hip; M54.50 Low back pain, unspecified
CPT/HCPCS: 99204

== ENCOUNTER → 2024-03-07 08:34 | Outpatient (BNVA) | payer OTHER, SELFPAY | PROVIDERS: PCP Nurse Practitioner Family; Referring Provider Surgery Vascular Surgery; Visit Provider Anesthesiology ==

== ENCOUNTER 2024-03-30 07:47 | Outpatient (REF) | payer OTHER, SELFPAY ==
--- NOTE | ~2024-03-30 | XR_ITS ---
EXAMINATION: XR KNEE, RIGHT CLINICAL INFORMATION: Unilateral primary osteoarthritis, right knee ; pain COMPARISON: None available. TECHNIQUE: Three views of the right knee. FINDINGS: No fracture, dislocation, or suspicious focal bony abnormality. Normal alignment. Minimal medial compartment joint space narrowing. Lateral and patellofemoral compartment appear preserved. No evidence of joint effusion. Soft tissues appear normal. XR/XR knee RT 3V IMPRESSION: Minimal medial compartment narrowing, otherwise normal exam. Electronically signed by: Garo Perez MD 04/28/2024 01:01 PM EDT
--- NOTE | ~2024-03-30 | XR_ITS ---
EXAMINATION: XR KNEE, LEFT CLINICAL INFORMATION: Unilateral primary osteoarthritis left knee; pain. COMPARISON: None available. TECHNIQUE: Three views of the left knee. FINDINGS: No fracture, dislocation, or suspicious focal bony abnormality. Normal alignment. Minimal medial compartment joint space narrowing. Lateral and patellofemoral compartment appear preserved. No evidence of joint effusion. Soft tissues appear normal. XR/XR knee LT 3V IMPRESSION: Minimal medial compartment narrowing, otherwise normal exam. Electronically signed by: Garo Perez MD 04/28/2024 12:59 PM EDT
== END 2024-03-30 07:48 | disposition home or self-care (01) ==
LOC: HO.XRAY 07:47
PROVIDERS: PCP Nurse Practitioner Family; Visit Provider Anesthesiology
DX: M17.0 Bilateral primary osteoarthritis of knee (principal)
CPT/HCPCS: 73562

== ENCOUNTER → 2024-03-30 07:53 | Outpatient (BNV) | payer OTHER, SELFPAY | PROVIDERS: PCP Nurse Practitioner Family; Visit Provider Radiology Diagnostic Radiology | DX: M17.12 Unilateral primary osteoarthritis, left knee (principal) | CPT/HCPCS: 73562 ==

== ENCOUNTER 2024-04-13 15:49 | Outpatient (AMB) | payer OTHER, SELFPAY ==
--- NOTE | 2024-04-13 15:56 | A.OFFVIS_ITS ---
Intake Visit Reasons: discuss procedure Intake Note: Patient is present for telephone follow up to discuss Procedure Urology Med: Finasteride Allergies No Known Allergies Allergy (Verified 03/07/24 08:43) Medication List - Last Reconciled 04/13/24 by Rod Phillips MD amoxicillin-pot clavulanate 500-125 mg (Augmentin) 1 tab PO Q8H 7 days cholecalciferol (vitamin D3) (Vitamin D3) 50 mcg PO DAILY finasteride 5 mg PO MOWEFR multivitamin 1 tab PO DAILY zinc acetate 50 mg PO DAILY HPI Comments Details: Sancho is a pleasant male. He is a patient of Dr. Davis. He seen for the following urologic conditions - BPH - gross hematuria - urinary tract infection Telemedicine Evaluation 15 min Consultation DoximVsnap Nereyda Video attempted Episode of significant hematuria Has been present for 3 days Does have history of prior stones but also urinary tract infection Will try Augmentin He will call by Thursday not improving Schedule office cystoscopy Nephrolithiasis Right renal stone secondary to stent fragment 07/16 PCN required Lower urinary tract symptoms Nocturia resolved and better emptying following procedure 04/14 GreenLight laser prostate, 09/16 GreenLight laser Pathology - BPH, large prostate 200 gm - biopsy negative Previously on finasteride Gross hematuria with urinary tract infection Imaging - 11/12 CT scan large prostate with bladder wall thickening Microbiology - 11/12 Aerococcus urinae - sensitivity per Google search Augmentin PSA 03/14 16, 09/15 11, 03/15 8.4 15% Therapeutic plan - continue to follow [facility] Medical History (Updated 03/07/24 @ 09:28 by Zaire Gutierrez MD) Coagulase negative Staphylococcus bacteremia Hydronephrosis concurrent with and due to calculi of kidney and ureter Bladder stones Myxomatous mitral valve PICC (peripherally inserted central catheter) in place Kidney stones Pyelonephritis MSSA bacteremia Acute kidney injury Ureteral stent present BPH (benign prostatic hyperplasia) Detached retina Hernia Surgical History (Updated 02/16/24 @ 09:23 by HANNA Grewal) Status post ablation of incompetent vein using laser (07/25/22) History of cystoscopy History of prostate surgery Hx of varicose vein ligation (~11/2023) History of eye surgery History of umbilical hernia repair Family History Sister Melanoma Social History Household Members: Family Housing: House Are you a primary direct care worker to a significant other at home: No Do you presently have visiting nurse or other home services: No Alcohol intake: former Comment: medicated with po tylenol Patient Tobacco Use Status: Former Tobacco user Tobacco use type: Cigarette e-Cigarette/Vaping Use: Former Use Second Hand Smoke Exposure: No Advance Directives Date on File: 12/01/22 service: No Current occupational status: employed 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 - [employer] Cognitive needs: No Hearing needs: No Vision needs: Yes Review of Systems Const All systems reviewed & are unremarkable except as noted in HPI and below Reports no additional complaints Resp Reports no additional complaints GI Reports no additional complaints Reports as per HPI Musc Reports no additional complaints Physical Exam Telemedicine evaluation Appropriate responses Regular breathing rate and rhythm HEENT Head: Yes normal to inspection Ears: hearing grossly normal bilaterally Eyes General: appearance normal, both eyes and all related structures Neck Neck: Yes normal visual inspection Chest Chest palpation & inspection: normal inspection of the chest Resp Effort & Inspection: normal respiratory effort and able to speak in complete sentences Telehealth Telehealth Telehealth Platform: [employer] Location of provider rendering services: practice address Location of patient: address on file Patient Identification confirmed using: Name, : Yes Telehealth method: video Patient verbally consented to treatment: Yes Patient verbally consented to billing insurance company: Yes Patient informed of any privacy concerns related to visit: Yes Minutes spent on Phone/Video with Pt.: 15 Assessment & Plan Assessment & Plan (1) UTI (urinary tract infection), bacterial: Code(s): N39.0 - Urinary tract infection, site not specified; A49.9 - Bacterial infection, unspecified Category: Medical Plan Antibiotics Plan office cystoscopy Medications: New amoxicillin-pot clavulanate 500-125 mg (Augmentin) 1 tab PO Q8H 7 days 21 tabs 0RF N30.00 - Acute cystitis without hematuria, N39.0 - Urinary tract infection, site not specified Patient Instructions: Imaging studies, laboratory and physical exam results were discussed and reviewed in detail. No major barriers to patient understanding were identified. An opportunity to ask questions regarding the treatment plan was provided. All questions were answered. The patient expressed understanding and agreement with the above treatment plan. The patient is aware they should contact our office by phone for worsening of their current condition or the appearance of new urologic symptoms. Compliance is encouraged with any medications and followup testing that is ordered. It is a privilege to participate in the urologic care of your patient. If you have any questions or concerns regarding treatment for the above conditions, or other urologic issues, please do not hesitate to contact me. The office telephone contact is [phone]. This note is constructed using voice recognition software. While every effort has been made to ensure accuracy filter washer and presser errors may have been included. Yours sincerely, Dr Rod Phillips MD, [facility] - Urology Providers of Expert, Compassionate Care for the Genitourinary System Coding Level of Care Code Tele Est Pt Level 4 (48897) Diagnoses UTI (urinary tract infection), bacterial N39.0; A49.9
== END 2024-04-13 16:30 | disposition home or self-care (01) ==
LOC: HO.HUSH 15:49
PROVIDERS: PCP Nurse Practitioner Family; Visit Provider Urology
DX: N39.0 Urinary tract infection, site not specified (principal); A49.9 Bacterial infection, unspecified
CPT/HCPCS: 99214

== ENCOUNTER → 2024-04-13 15:49 | Outpatient (BNVA) | payer OTHER, SELFPAY | PROVIDERS: PCP Nurse Practitioner Family; Visit Provider Urology ==

== ENCOUNTER 2024-05-10 07:16 | Outpatient (REF) | payer OTHER, SELFPAY ==
--- NOTE | ~2024-05-10 | FL_ITS ---
EXAMINATION: FLUORO GUIDANCE IN TREATMENT ROOM CLINICAL INFORMATION: Unilateral primary osteoarthritis, hip. COMPARISON: None available. TECHNIQUE: Fluoroscopy supervised by: Dr. Zaire Gutierrez. Fluoroscopy time: 0.1 minutes. Cumulative Dose: 7.02 mGy. DAP: 0.122 mGy-m2 (milligray-meter squared). Images: 1. FINDINGS: Right hip injection. FL/FL guidance in treatment room IMPRESSION: Fluoroscopy during procedure. Please see procedure report for additional information. Electronically signed by: Chloé Joy MD 08/30/2024 01:28 PM NGUYEN
== END 2024-05-10 07:17 | disposition home or self-care (01) ==
LOC: CF 07:16
PROVIDERS: Visit Provider Anesthesiology
DX: Z13.89 Encounter for screening for other disorder (principal)
CPT/HCPCS: J2795; Q9967

== ENCOUNTER 2024-05-10 13:20 | Outpatient (AMB) | payer OTHER, SELFPAY ==
[2024-05-10 13:26] VITALS: BP 137/74; PULSE 69; RESP 16; O2SAT 99
--- NOTE | 2024-05-10 13:26 | MHC.OFFVIS ---
Vital Signs 05/10/24 13:26 05/10/24 14:43 BP 137/74 133/77 Blood Pressure Location Lt brachial Lt brachial Position Sitting Sitting Respiration 16 16 Pulse 69 66 Pulse Source Pulse Oximeter Pulse Oximeter Pulse Oximetry (%) 99 97 Oxygen Delivery Method Room Air Room Air Comment pre-op post-op Intake Visit Reasons: PRP right hip Allergies No Known Allergies Allergy (Verified 05/10/24 13:29) PFSH Medical History (Updated 03/07/24 @ 09:28 by Zaire Gutierrez MD) Coagulase negative Staphylococcus bacteremia Hydronephrosis concurrent with and due to calculi of kidney and ureter Bladder stones Myxomatous mitral valve PICC (peripherally inserted central catheter) in place Kidney stones Pyelonephritis MSSA bacteremia Acute kidney injury Ureteral stent present BPH (benign prostatic hyperplasia) Detached retina Hernia Surgical History (Updated 02/16/24 @ 09:23 by HANNA Grewal) Status post ablation of incompetent vein using laser (07/25/22) History of cystoscopy History of prostate surgery Hx of varicose vein ligation (~11/2023) History of eye surgery History of umbilical hernia repair Family History Sister Melanoma Social History Household Members: Family Housing: House Are you a primary childcare center administrator to a significant other at home: No Do you presently have visiting nurse or other home services: No Alcohol intake: former Comment: medicated with po tylenol Patient Tobacco Use Status: Former Tobacco user Tobacco use type: Cigarette e-Cigarette/Vaping Use: Former Use Second Hand Smoke Exposure: No Advance Directives Date on File: 12/01/22 service: No Current occupational status: employed 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 - [employer] Cognitive needs: No Hearing needs: No Vision needs: Yes Physical Exam Vital Signs: Last Vital Signs Pulse 66 05/10/24 14:43 Resp 16 05/10/24 14:43 BP 133/77 05/10/24 14:43 Pulse Ox 97 05/10/24 14:43 Oxygen Delivery Method Room Air 05/10/24 14:43 Assessment & Plan Assessment & Plan (1) Osteoarthritis of left knee: Code(s): M17.12 - Unilateral primary osteoarthritis, left knee Category: Medical (2) Osteoarthritis of right knee: Code(s): M17.11 - Unilateral primary osteoarthritis, right knee Category: Medical (3) Osteoarthritis: Code(s): M19.90 - Unspecified osteoarthritis, unspecified site Category: Medical (4) Primary osteoarthritis of right hip: Code(s): M16.11 - Unilateral primary osteoarthritis, right hip Category: Medical (5) Primary osteoarthritis of left hip: Code(s): M16.12 - Unilateral primary osteoarthritis, left hip Category: Medical (6) Low back pain: Code(s): M54.50 - Low back pain, unspecified Category: Medical Plan: intra-articular hip PRP injection. Informed consent was explained to the patient. All questions were explained and? answered.? Patient's right antecubital area was prepped with alcohol and 60 cc of autologous blood was obtained in strict sterile conditions. The blood was processed in the PRP machine and 6 cc of centrifuged PRP was obtained in strict sterile condition. After that the patient was taken inside the operating room where he was positioned left lateral decubitus on the operating table.? Time-out was performed delineating correct site, side, the nature of the procedure, patient's allergy, preoperative antibiotic if needed.? All operating room staff was participating in OR time-out procedure.? The patient stated his name. Non dependent right hip was prepped with ChloraPrep and draped with sterile towels.? The C-arm was brought over the operating field and the picture of bilateral hip joints were obtained on the screen.? The right hip joint was chosen as the target for the injection.? The trochanter position was noted on the screen.? The projection of the trochanter to the skin was noted, the direction of the femoral neck was noted.? The skin was anesthetized using 2% lidocaine at the trochanter area.? 22 gauge 5 in needle was inserted through the skin and advanced to the hip joint silhouette on anterior posterior view.? When needle entered the joint the injection of the contrast was performed demonstrating intra-articular spread of the contrast.? After that 6 cc of platelet rich plasma was injected into the area.? The needle was removed sterile dressing was applied. The patient tolerated procedure well. Orders: Plan This patient came to me with complains on multiple pain generators. The most pronounced pain he experiences from right hip were is demonstrable advanced osteoarthritis. He is interested in PRP injection. We had prolonged and detailed conversation today about this procedure, we discussed his arthritis, we discussed his lower back pain as well. I will schedule him for PRP injection. The nature of the procedure was explained to the patient, the fact that insurance companies do not cover this procedure was explained to the patient. The [id number] willingham was explained to the patient. As of his knees I will send him for bilateral knee x-ray. It looks like that he never had x-ray of bilateral knees. As of his lower back pain he had an MRI in the past which demonstrated disc degeneration. If he will bring me the report of the old MRI I will be able to schedule him for the MRI of the lumbar spine to see the advancement of the disease. Orders: Orders FL guidance in treatment room Today M16.12 - Unilateral primary osteoarthritis, left hip Coding Level of Care Code Procedure Only Diagnoses Osteoarthritis of left knee M17.12 Osteoarthritis of right knee M17.11 Osteoarthritis M19.90 Primary osteoarthritis of right hip M16.11 Primary osteoarthritis of left hip M16.12 Low back pain M54.50
[2024-05-10 14:43] VITALS: BP 133/77; PULSE 66; RESP 16; O2SAT 97
== END 2024-05-10 14:43 | disposition home or self-care (01) ==
LOC: HO.PMCPRC 13:20
PROVIDERS: PCP Nurse Practitioner Family; Visit Provider Anesthesiology
DX: M17.0 Bilateral primary osteoarthritis of knee (principal); M19.90 Unspecified osteoarthritis, unspecified site; M16.0 Bilateral primary osteoarthritis of hip; M54.50 Low back pain, unspecified
CPT/HCPCS: 0232T

== ENCOUNTER 2024-05-23 10:04 | Outpatient (AMB) | payer OTHER, SELFPAY ==
--- NOTE | 2024-05-23 10:05 | MHC.OFFVIS ---
Vital Signs 05/23/24 10:13 Height 6 ft 1 in Weight 189 lb 4 oz BMI 25.0 BP 130/80 Blood Pressure Location Lt brachial Position Sitting Respiration 16 Pulse 71 Pulse Source Pulse Oximeter Pulse Oximetry (%) 99 Oxygen Delivery Method Room Air Intake Visit Reasons: PRP HIP PROCEDURE/05/10/24 Intake Note: Patient comes in for post-op. Reports pain 10. Allergies No Known Allergies Allergy (Verified 05/23/24 10:14) HPI Comments Details: Sancho is back in my office after PRP right hip injection. Patient reported minimal improvement although states that his pain is not much different from the pain which he had before the procedure. I recommend patient to visit me in remove weeks. It usually is 4-6 weeks until results are fully implemented with PRP injection. I will see him then. Prior: right hip pain in bilateral knees and moderate pain in the lower back. He reports that he is suffering from osteoarthritis for many years. He had hip x-ray performed and the results are available demonstrating right hip advanced arthritis. He reports that he can not sleep normally he can not do activities of daily living he can not take care of himself but he can not function normally. 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 He never had x-ray of bilateral hips. He had an MRI of the lumbar spine results of which are not available to me. He never had any injections in his joints. His past medical history significant for benign heart murmur. He had multiple surgical history including history for enlarged prostate history of kidney surgery bladder stone surgery and vascular surgery removal of the varicosities. [facility] Medical History (Updated 03/07/24 @ 09:28 by Zaire Gutierrez MD) Coagulase negative Staphylococcus bacteremia Hydronephrosis concurrent with and due to calculi of kidney and ureter Bladder stones Myxomatous mitral valve PICC (peripherally inserted central catheter) in place Kidney stones Pyelonephritis MSSA bacteremia Acute kidney injury Ureteral stent present BPH (benign prostatic hyperplasia) Detached retina Hernia Surgical History (Updated 02/16/24 @ 09:23 by HANNA Grewal) Status post ablation of incompetent vein using laser (07/25/22) History of cystoscopy History of prostate surgery Hx of varicose vein ligation (~11/2023) History of eye surgery History of umbilical hernia repair Family History Sister Melanoma Social History Household Members: Family Housing: House Are you a primary client care representative to a significant other at home: No Do you presently have visiting nurse or other home services: No Alcohol intake: former Comment: medicated with po tylenol Patient Tobacco Use Status: Former Tobacco user Tobacco use type: Cigarette e-Cigarette/Vaping Use: Former Use Second Hand Smoke Exposure: No Advance Directives Date on File: 12/01/22 service: No Current occupational status: employed 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 - [employer] Cognitive needs: No Hearing needs: No Vision needs: Yes Review of Systems Const All systems reviewed & are unremarkable except as noted in HPI and below ENT Reports Normal hearing present Neuro Reports Normal hearing present, Denies Abnormal speech present, Denies confusion and Denies Sensory deficit (Neuro) Psych Denies confusion Physical Exam Vital Signs: Last Vital Signs Pulse 71 05/23/24 10:13 Resp 16 05/23/24 10:13 BP 130/80 05/23/24 10:13 Pulse Ox 99 05/23/24 10:13 Oxygen Delivery Method Room Air 05/23/24 10:13 BMI result Body Mass Index 25.0 Const General: no acute distress; No confusion Nutritional Appearance: obese morbidly obese Orientation/consciousness: patient oriented x3 and No confusion Eyes General: appearance normal, both eyes and all related structures Pupils: Equal, round and reactive pupils present EOM: EOMs intact bilaterally Neck Neck: Yes full ROM Chest Chest palpation & inspection: normal inspection of the chest Resp Effort & Inspection: normal respiratory effort, able to speak in complete sentences, normal respiratory pattern, no audible wheezes and no cough Cardio Jugular venous distension: no JVD GI Inspection: Yes normal to inspection Neuro General: patient oriented x3, gait normal and No confusion Cranial nerves: Yes CN's II-XII intact bilaterally, Yes Equal, round and reactive pupils present, Yes Normal hearing present and Yes Ability to bilaterally elevate shoulders present Speech: No Abnormal speech present Gait exam (Neuro): Normal gait present Motor exam (neuro): 5/5 motor strength present throughout Sensory Exam: No Sensory deficit (Neuro) Extrem Other: Armando test is negative on the right. Lateral rotation of the right hip aggravates the pain in the groin and in the projection of the trochanter area. Performance of Armando test aggravates pain in the right hip going down the right thigh. General: No pedal edema Psych Speech and movement: Normal speech and movement present Affect: normal affect Attitude: cooperative Thought process: Normal thought process present Thought content: Normal thought content present Insight: Good insight present (Psych) Judgement: Good judgement present (Psych) Assessment & Plan Assessment & Plan (1) Osteoarthritis of left knee: Code(s): M17.12 - Unilateral primary osteoarthritis, left knee Category: Medical (2) Osteoarthritis of right knee: Code(s): M17.11 - Unilateral primary osteoarthritis, right knee Category: Medical (3) Osteoarthritis: Code(s): M19.90 - Unspecified osteoarthritis, unspecified site Category: Medical (4) Primary osteoarthritis of right hip: Code(s): M16.11 - Unilateral primary osteoarthritis, right hip Category: Medical (5) Primary osteoarthritis of left hip: Code(s): M16.12 - Unilateral primary osteoarthritis, left hip Category: Medical (6) Low back pain: Code(s): M54.50 - Low back pain, unspecified Category: Medical Plan As of the pain in the right hip joint it is still very early in the course of the post-injection condition to expect any changes in the pain level. I will see him in 3 more weeks. As of his knees I will send him for bilateral knee x-ray. It looks like that he never had x-ray of bilateral knees. As of his lower back pain he had an MRI in the past which demonstrated disc degeneration. If he will bring me the report of the old MRI I will be able to schedule him for the MRI of the lumbar spine to see the advancement of the disease. Coding Level of Care Code Est Pt Level 3 (34263) Diagnoses Osteoarthritis of left knee M17.12 Osteoarthritis of right knee M17.11 Osteoarthritis M19.90 Primary osteoarthritis of right hip M16.11 Primary osteoarthritis of left hip M16.12 Low back pain M54.50
[2024-05-23 10:13] VITALS: BP 130/80; PULSE 71; RESP 16; O2SAT 99; BMI 25.0
== END 2024-05-23 10:17 | disposition home or self-care (01) ==
PROVIDERS: PCP Nurse Practitioner Family; Visit Provider Anesthesiology
DX: M17.0 Bilateral primary osteoarthritis of knee (principal); M19.90 Unspecified osteoarthritis, unspecified site; M16.0 Bilateral primary osteoarthritis of hip; M54.50 Low back pain, unspecified
CPT/HCPCS: 99213

== ENCOUNTER → 2024-05-23 10:04 | Outpatient (BNVA) | payer OTHER, SELFPAY | PROVIDERS: PCP Nurse Practitioner Family; Visit Provider Anesthesiology ==

== ENCOUNTER 2024-05-26 10:07 | Outpatient (AMB) | payer OTHER, SELFPAY ==
--- NOTE | 2024-05-26 10:22 | MHC.OFFVIS ---
Intake Visit Reasons: cysto Intake Note: Patient is present for Cystoscopy Urology Medication:NONE Antibiotic Allergy:NONE Blood Thinner:NONE Lot:[id number] Exp:06/27/27 Flat Polisher Required: No Allergies No Known Allergies Allergy (Verified 05/26/24 10:22) HPI Comments Details: Sancho is a pleasant male. He is a patient of Dr. Davis. He seen for the following urologic conditions - BPH - gross hematuria - urinary tract infection Telemedicine Evaluation 15 min Consultation [employer] [place]da Video attempted Had episode of hematuria which resolved with Augmentin On cystoscopy Has inflamed prostate still Will add low-dose Augmentin for 90 days Nephrolithiasis Right renal stone secondary to stent fragment 07/16 PCN required Lower urinary tract symptoms Nocturia resolved and better emptying following procedure 04/14 GreenLight laser prostate, 09/16 GreenLight laser Pathology - BPH, large prostate 200 gm - biopsy negative Previously on finasteride Gross hematuria with urinary tract infection Imaging - 11/12 CT scan large prostate with bladder wall thickening Microbiology - 11/12 Aerococcus urinae - sensitivity per Google search Augmentin PSA 03/14 16, 09/15 11, 03/15 8.4 15% Therapeutic plan - continue to follow [facility] Medical History (Updated 03/07/24 @ 09:28 by Zaire Gutierrez MD) Coagulase negative Staphylococcus bacteremia Hydronephrosis concurrent with and due to calculi of kidney and ureter Bladder stones Myxomatous mitral valve PICC (peripherally inserted central catheter) in place Kidney stones Pyelonephritis MSSA bacteremia Acute kidney injury Ureteral stent present BPH (benign prostatic hyperplasia) Detached retina Hernia Surgical History (Updated 02/16/24 @ 09:23 by HANNA Grewal) Status post ablation of incompetent vein using laser (07/25/22) History of cystoscopy History of prostate surgery Hx of varicose vein ligation (~11/2023) History of eye surgery History of umbilical hernia repair Family History Sister Melanoma Social History Household Members: Family Housing: House Are you a primary health care sanitary technician to a significant other at home: No Do you presently have visiting nurse or other home services: No Alcohol intake: former Comment: medicated with po tylenol Patient Tobacco Use Status: Former Tobacco user Tobacco use type: Cigarette e-Cigarette/Vaping Use: Former Use Second Hand Smoke Exposure: No Advance Directives Date on File: 12/01/22 service: No Current occupational status: employed 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 - [employer] Cognitive needs: No Hearing needs: No Vision needs: Yes Review of Systems Const Denies chills and Denies fever(s) Card Reports no additional complaints and Denies syncope Resp Denies cough GI Denies abdominal pain and Denies heartburn Reports as per HPI and Denies change in libido Neuro Denies syncope Psych Denies change in libido Endo Denies change in libido Physical Exam Const General: cooperative, healthy appearing, comfortable and no acute distress Orientation/consciousness: patient oriented x3 HEENT Face and sinus: Yes normal facial exam Mouth: moist mucous membranes Neck Neck: Yes normal visual inspection, Yes full ROM and Yes trachea midline Chest Chest palpation & inspection: normal inspection of the chest Resp Effort & Inspection: normal respiratory effort, able to speak in complete sentences and no respiratory distress GI Inspection: Yes normal to inspection Back/Spine/Pelvis Cervical Spine: normal cervical lordosis Thoracic/Lumbar Spine: thoracic and lumbar spine normal to inspection Skin General skin exam: no rashes or lesions noted Neuro General: patient oriented x3, gait normal, tone normal and moves all extremities Extrem General: Yes normal to inspection and Yes capillary refill normal Office Procedures Cystoscopy Consent Discussed risk and benefit or proposed procedure with the patient. Information consent for procedure given to the patient. Discussed technical aspects, risks, benefits and alternatives in full. Addressed all of the patient's questions and concerns regarding the procedure. The patient demonstrated knowledge and understanding. They wish to proceed with this procedure. Preparation The patient was prepped in the usual manner. A backup engineer was present and in the room. Genitalia was prepped with betadine solution in a sterile manner. Lidocaine Jelly 2% was placed into the urethra and 16Fr flexible Olympus cystoscope was inserted into the meatus after adequate lubrication. Procedure Cystoscopy performed using a disposable Urovue digital 16 Indonesian cystoscope. Meatus circumcised Urethra anterior and posterior urethra normal Prostatic Urethra TURP defect with inflammation of tract Bladder examination with retroflexion of cystoscope Bladder Orifices normal shape and position Bladder Capacity large Trabeculations grade 3 Cellule Formation - Diverticulum Formation - Mucosal Erythema - Bladder Tumor - [id number] DISPOSABLE SCOPE URO-G FLEXIBLE SCOPE Procedure code (CPT) selection complete Office Meds lidocaine HCl 2 % mucosal jelly in applicator Performing Provider: Rod Phillips MD Performing Location: [facility] Administered by: Drew Gao LPN on 05/26/24 10:40 Dose Route Admin Location Dispensed Lot Number Expiration Date [place] [employer] 10 mL intra-urethral 10 mL nitrofurantoin monohydrate/macrocrystals 100 mg capsule Performing Provider: Rod Phillips MD Performing Location: [facility] Administered by: Drew Gao LPN on 05/26/24 10:40 Dose Route Admin Location Dispensed Lot Number Expiration Date [place] [employer] 100 mg PO 1 cap naproxen 500 mg tablet Performing Provider: Rod Phillips MD Performing Location: [facility] Administered by: Drew Gao LPN on 05/26/24 10:40 Dose Route Admin Location Dispensed Lot Number Expiration Date [place] [employer] 500 mg PO 1 tab Results AMB Urinalysis, Automated UA Leukoctes 70 David/uL Last Edit by FABIAN Kumar on 05/26/24 10:32 UA Nitrite Negative Last Edit by FABIAN Kumar on 05/26/24 10:32 UA Urobilinogen 0.2 mg/dL Last Edit by FABIAN Kumar on 05/26/24 10:32 UA Protein 15 mg/dL Last Edit by FABIAN Kumar on 05/26/24 10:32 UA pH 6.0 Last Edit by FABIAN Kumar on 05/26/24 10:32 UA Blood 0 Ulysses/uL Last Edit by FABIAN Kumar on 05/26/24 10:32 UA Specific Ira 1.020 Last Edit by FABIAN Kumar on 05/26/24 10:32 UA Ketone Negative Last Edit by FABIAN Kumar on 05/26/24 10:32 UA Bilirubin 0 mg/dL Last Edit by FABIAN Kumar on 05/26/24 10:32 UA Glucose 0 mg/dL Last Edit by FABIAN Kumar on 05/26/24 10:32 Results Reviewed Results Reviewed: Laboratory Last Values Urine pH (Auto) 6.0 05/26/24 10:31 Specific Ira (Auto) 1.020 05/26/24 10:31 Urine Protein (Auto) 15 mg/dL 05/26/24 10:31 Glucose (UA)(Auto) 0 mg/dL 05/26/24 10:31 Urine Ketones (Auto) Negative 05/26/24 10:31 Urine Blood (Auto) 0 Ulysses/uL 05/26/24 10:31 Urine Nitrite (Auto) Negative 05/26/24 10:31 Urine Bilirubin (Auto) 0 mg/dL 05/26/24 10:31 Urine Urobilinogen (Auto) 0.2 mg/dL 05/26/24 10:31 Leukocyte Esterase (Auto) 70 David/uL 05/26/24 10:31 Assessment & Plan Assessment & Plan (1) Incomplete emptying of bladder due to benign prostatic hyperplasia: Code(s): N40.1 - Benign prostatic hyperplasia with lower urinary tract symptoms; R33.9 - Retention of urine, unspecified Category: Medical (2) Bladder stones: Code(s): N21.0 - Calculus in bladder Category: Medical (3) UTI (urinary tract infection), bacterial: Code(s): N39.0 - Urinary tract infection, site not specified; A49.9 - Bacterial infection, unspecified Category: Medical Plan Three-month follow-up Orders: Orders AMB Urinalysis Automated Today Z13.9 - Encounter for screening, unspecified AMB Cystoscopy Today A49.9 - Bacterial infection, unspecified, N13.8 - Other obstructive and reflux uropathy, N21.0 - Calculus in bladder, N39.0 - Urinary tract infection, site not specified, N40.1 - Benign prostatic hyperplasia with lower urinary tract symptoms, R31.0 - Gross hematuria, R33.9 - Retention of urine, unspecified Medications: New amoxicillin-pot clavulanate 500-125 mg (Augmentin) 1 tab PO DAILY 90 days 90 tabs 0RF A49.9 - Bacterial infection, unspecified, N39.0 - Urinary tract infection, site not specified Patient Instructions: Imaging studies, laboratory and physical exam results were discussed and reviewed in detail. No major barriers to patient understanding were identified. An opportunity to ask questions regarding the treatment plan was provided. All questions were answered. The patient expressed understanding and agreement with the above treatment plan. The patient is aware they should contact our office by phone for worsening of their current condition or the appearance of new urologic symptoms. Compliance is encouraged with any medications and followup testing that is ordered. It is a privilege to participate in the urologic care of your patient. If you have any questions or concerns regarding treatment for the above conditions, or other urologic issues, please do not hesitate to contact me. The office telephone contact is [phone]. This note is constructed using voice recognition software. While every effort has been made to ensure accuracy hat marker errors may have been included. Yours sincerely, Dr Rod Phillips MD, [facility] Urology Providers of Expert, Compassionate Care for the Genitourinary System Coding Level of Care Code Est Pt Level 3 (58457) Diagnoses Incomplete emptying of bladder due to benign prostatic hyperplasia N40.1; R33.9 Bladder stones N21.0 UTI (urinary tract infection), bacterial N39.0; A49.9 CPT Codes Cystoscopy - CPT: [id number] ([id number])
== END 2024-05-26 11:44 | disposition home or self-care (01) ==
PROVIDERS: PCP Nurse Practitioner Family; Visit Provider Urology
DX: N40.1 Benign prostatic hyperplasia with lower urinary tract symptoms (principal); R33.9 Retention of urine, unspecified; N21.0 Calculus in bladder; N13.8 Other obstructive and reflux uropathy; N39.0 Urinary tract infection, site not specified; A49.9 Bacterial infection, unspecified; R31.0 Gross hematuria
CPT/HCPCS: 52000; 99213

== ENCOUNTER → 2024-05-26 10:07 | Outpatient (BNVA) | payer OTHER, SELFPAY | PROVIDERS: PCP Nurse Practitioner Family; Visit Provider Urology | DX: N40.1 Benign prostatic hyperplasia with lower urinary tract symptoms (principal); R33.8 Other retention of urine; N21.0 Calculus in bladder; N39.0 Urinary tract infection, site not specified; A49.9 Bacterial infection, unspecified | CPT/HCPCS: 52000; 81003 ==

== ENCOUNTER 2024-06-15 08:19 | Outpatient (AMB) | payer OTHER, SELFPAY ==
[2024-06-15 08:27] VITALS: BP 139/72; PULSE 67; O2SAT 98; BMI 24.9
--- NOTE | 2024-06-15 08:27 | MHC.OFFVIS ---
Vital Signs 06/15/24 08:27 Height 6 ft 1 in Weight 189 lb BMI 24.9 BP 139/72 Blood Pressure Location Rt brachial Position Sitting Pulse 67 Pulse Source Pulse Oximeter Pulse Oximetry (%) 98 Oxygen Delivery Method Room Air Intake Visit Reasons: 3 weeks F/U Allergies No Known Allergies Allergy (Verified 06/15/24 08:27) Medication List - Last Reconciled 06/15/24 by Abigail Antoine amoxicillin-pot clavulanate 500-125 mg (Augmentin) 1 tab PO DAILY 90 days cholecalciferol (vitamin D3) (Vitamin D3) 50 mcg PO DAILY multivitamin 1 tab PO DAILY zinc acetate 50 mg PO DAILY HPI Comments Details: Sancho is back in my office after PRP right hip injection. Patient reported moderate improvement improvement from the right hip pain. He reports better mobility if he moves not very fast. However with fast movements his mobilities restricted. He wants to try 2nd PRP injection into the right hip. I will schedule it accordingly. We agreed that if 2nd PRP will not improve the condition of the right hip further we will schedule him for the psychological evaluation and I will consider spinal cord stimulator [employer] positioned in the right gutter to alleviate pain in the right hip. Discussion about spinal cord stimulator device was held, risks and benefits and details of the procedure were explained to the patient. The patient expressed understanding. He appears to be interested. Prior: right hip pain in bilateral knees and moderate pain in the lower back. He reports that he is suffering from osteoarthritis for many years. He had hip x-ray performed and the results are available demonstrating right hip advanced arthritis. He reports that he can not sleep normally he can not do activities of daily living he can not take care of himself but he can not function normally. 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 He never had x-ray of bilateral hips. He had an MRI of the lumbar spine results of which are not available to me. He never had any injections in his joints. His past medical history significant for benign heart murmur. He had multiple surgical history including history for enlarged prostate history of kidney surgery bladder stone surgery and vascular surgery removal of the varicosities. [facility] Medical History (Updated 03/07/24 @ 09:28 by Zaire Gutierrez MD) Coagulase negative Staphylococcus bacteremia Hydronephrosis concurrent with and due to calculi of kidney and ureter Bladder stones Myxomatous mitral valve PICC (peripherally inserted central catheter) in place Kidney stones Pyelonephritis MSSA bacteremia Acute kidney injury Ureteral stent present BPH (benign prostatic hyperplasia) Detached retina Hernia Surgical History (Updated 02/16/24 @ 09:23 by HANNA Grewal) Status post ablation of incompetent vein using laser (07/25/22) History of cystoscopy History of prostate surgery Hx of varicose vein ligation (~11/2023) History of eye surgery History of umbilical hernia repair Family History Sister Melanoma Social History Household Members: Family Housing: House Are you a primary point of care specialist to a significant other at home: No Do you presently have visiting nurse or other home services: No Alcohol intake: former Comment: medicated with po tylenol Patient Tobacco Use Status: Former Tobacco user Tobacco use type: Cigarette e-Cigarette/Vaping Use: Former Use Second Hand Smoke Exposure: No Advance Directives Date on File: 12/01/22 service: No Current occupational status: employed 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 - [employer] Cognitive needs: No Hearing needs: No Vision needs: Yes Review of Systems Const All systems reviewed & are unremarkable except as noted in HPI and below ENT Reports Normal hearing present Neuro Reports Normal hearing present, Denies Abnormal speech present, Denies confusion and Denies Sensory deficit (Neuro) Psych Denies confusion Physical Exam Vital Signs: Last Vital Signs Pulse 67 06/15/24 08:27 BP 139/72 06/15/24 08:27 Pulse Ox 98 06/15/24 08:27 Oxygen Delivery Method Room Air 06/15/24 08:27 BMI result Body Mass Index 24.9 Const General: no acute distress; No confusion Nutritional Appearance: obese morbidly obese Orientation/consciousness: patient oriented x3 and No confusion Eyes General: appearance normal, both eyes and all related structures Pupils: Equal, round and reactive pupils present EOM: EOMs intact bilaterally Neck Neck: Yes full ROM Chest Chest palpation & inspection: normal inspection of the chest Resp Effort & Inspection: normal respiratory effort, able to speak in complete sentences, normal respiratory pattern, no audible wheezes and no cough Cardio Jugular venous distension: no JVD GI Inspection: Yes normal to inspection Neuro General: patient oriented x3, gait normal and No confusion Cranial nerves: Yes CN's II-XII intact bilaterally, Yes Equal, round and reactive pupils present, Yes Normal hearing present and Yes Ability to bilaterally elevate shoulders present Speech: No Abnormal speech present Gait exam (Neuro): Normal gait present Motor exam (neuro): 5/5 motor strength present throughout Sensory Exam: No Sensory deficit (Neuro) Extrem Other: Armando test is negative on the right. Lateral rotation of the right hip aggravates the pain in the groin and in the projection of the trochanter area. Performance of Armando test aggravates pain in the right hip going down the right thigh. General: No pedal edema Psych Speech and movement: Normal speech and movement present Affect: normal affect Attitude: cooperative Thought process: Normal thought process present Thought content: Normal thought content present Insight: Good insight present (Psych) Judgement: Good judgement present (Psych) Assessment & Plan Assessment & Plan (1) Osteoarthritis of left knee: Code(s): M17.12 - Unilateral primary osteoarthritis, left knee Category: Medical (2) Osteoarthritis of right knee: Code(s): M17.11 - Unilateral primary osteoarthritis, right knee Category: Medical (3) Osteoarthritis: Code(s): M19.90 - Unspecified osteoarthritis, unspecified site Category: Medical (4) Primary osteoarthritis of right hip: Code(s): M16.11 - Unilateral primary osteoarthritis, right hip Category: Medical (5) Primary osteoarthritis of left hip: Code(s): M16.12 - Unilateral primary osteoarthritis, left hip Category: Medical (6) Low back pain: Code(s): M54.50 - Low back pain, unspecified Category: Medical Plan Moderate improvement after the PRP was noticeable with improvement of the mobility and decrease of the level of the pain. At this time I could recommend 2nd PRP injection or go for [employer] SCS in the right gutter. Patient chose to go for 2nd PRP injection if this will not be working to his satisfaction [employer] spinal cord stimulator will be considered and patient will be sent for psychological evaluation. Patient Instructions: I here by testify that I spent 32 minutes in conversation with this patient as well as planning his care and organizing this note. Coding Level of Care Code Est Pt Level 4 (40288) Diagnoses Osteoarthritis of left knee M17.12 Osteoarthritis of right knee M17.11 Osteoarthritis M19.90 Primary osteoarthritis of right hip M16.11 Primary osteoarthritis of left hip M16.12 Low back pain M54.50
== END 2024-06-15 08:45 | disposition home or self-care (01) ==
PROVIDERS: PCP Nurse Practitioner Family; Visit Provider Anesthesiology
DX: M17.0 Bilateral primary osteoarthritis of knee (principal); M16.0 Bilateral primary osteoarthritis of hip; M54.50 Low back pain, unspecified
CPT/HCPCS: 99214

== ENCOUNTER → 2024-06-15 08:19 | Outpatient (BNVA) | payer OTHER, SELFPAY | PROVIDERS: PCP Nurse Practitioner Family; Visit Provider Anesthesiology ==

== ENCOUNTER 2024-07-06 14:57 | Outpatient (AMB) | payer OTHER, SELFPAY ==
[2024-07-06 15:05] VITALS: BP 130/70; PULSE 78; O2SAT 98; BMI 25.5
--- NOTE | 2024-07-06 15:05 | A.OFFPC_ITS ---
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 Required: No Accompanied by: Self / Same As Patient Allergies No Known Allergies Allergy (Verified 07/06/24 15:06) Medication List - Last Reconciled 07/06/24 by CLIF Hendrix cholecalciferol (vitamin D3) (Vitamin D3) 50 mcg PO DAILY multivitamin 1 tab PO DAILY zinc acetate 50 mg PO DAILY Tobacco use date assessed: 07/06/24 Fall risk assessment: No Falls in past year Last assessed Fall Risk: 07/06/24 Dental Screening Dental Screen Date: 07/06/24 Did you have a dental visit in the last 12 months?: Yes Did you have a dental problem in the last 6 months where you did not have access to dental care?: No Was dental information given to patient?: Patient has dentist HPI PE HPI Details Pt is here for a PE. Will order labs. Due for PSA, pt is seeing urology. Pt also follows up with pain management and vascular. Pt has a right inguinal hernia on exam. Will refer to general surg. [facility] Medical History Coagulase negative Staphylococcus bacteremia Hydronephrosis concurrent with and due to calculi of kidney and ureter Bladder stones Myxomatous mitral valve PICC (peripherally inserted central catheter) in place Kidney stones Pyelonephritis MSSA bacteremia Acute kidney injury Ureteral stent present BPH (benign prostatic hyperplasia) Detached retina Hernia Surgical History Status post ablation of incompetent vein using laser (07/25/22) History of cystoscopy History of prostate surgery Hx of varicose vein ligation (~11/2023) History of eye surgery History of umbilical hernia repair Family History Sister Melanoma Social History Household Members: Family Housing: House Are you a primary child care counselor to a significant other at home: No Do you presently have visiting nurse or other home services: No Alcohol intake: former Comment: medicated with po tylenol Patient Tobacco Use Status: Former Tobacco user Tobacco use type: Cigarette e-Cigarette/Vaping Use: Former Use Second Hand Smoke Exposure: No Advance Directives Date on File: 12/01/22 service: No Current occupational status: employed Current occupation: [employer] Cognitive needs: No Hearing needs: No Vision needs: Yes Questionnaire PHQ-9 Over the last 2 weeks, how often have you been bothered by any of the following problems? 1. Little interest or pleasure in doing things: not at all 2. Feeling down, depressed, or hopeless: not at all 3. Trouble falling or staying asleep, or sleeping too much: not at all 4. Feeling tired or having little energy: not at all 5. Poor appetite or overeating: not at all 6. Feeling bad about yourself - or that you are a failure or have let yourself or your family down: not at all 7. Trouble concentrating on things, such as reading the newspaper or watching television: not at all 8. Moving or speaking so slowly that other people could have noticed. Or the opposite - being so fidgety or restless that you have been moving around a lot more than usual: not at all 9. Thoughts that you would be better off or of hurting yourself in some way: not at all Total score: 0 Depression Screening Interpretation: Negative Depression Screening Done: Yes 99659 - PHQ-9 Billing: Yes Source: Developed by Drs. Chetan Brewer, Estrellita Nuñez, Jt Lorenzo and colleagues, with an educational ozzy from [employer]. Thrive Questionnaire Date Thrive assessed: 07/06/24 I am a: Patient What is your living situation today?: I have a steady place to live Within the past 12 months, did the food you bought not last and you didn't have the money to get more?: Never true Within the past 12 months, did you worry whether your food would run out before you got money to buy more?: Never true Do you have trouble paying for medicines?: No Do you have trouble getting transportation to medical appointments?: No Do you have trouble paying your heating and electricity bill?: No Do you have trouble taking care of your child, family member or friend?: No Do you have trouble with day-to-day activities such as bathing, preparing meals, shopping, managing finances, etc.?: No Are you currently unemployed and looking for a job?: No Are you interested in more education?: No Please select the resources that you would like help with: None Currently or been in a relationship where the following occur: No concerns reported THRIVE Score: 0 AUDIT C Alcohol Use Questionnaire (AUDIT-C) 1. How often do you have a drink containing alcohol?: Never 3. How often do you have six or more drinks on one occasion?: Never Total Score: 0 Score Reviewed/Action Taken: Yes MAHESH-7 AMB Questionnaire MAHESH-7 Date MAHESH - 7 assessed: 07/06/24 Feeling nervous, anxious, or on edge: 0 = Not at all Not being able to stop or control worryin = Not at all Worrying too much about different things: 1 = Several days Trouble relaxin = Several days Being so restless that it is hard to sit still: 0 = Not at all Becoming easily annoyed or irritable: 0 = Not at all Feeling afraid as if something awful might happen: 0 = Not at all Total MAHESH-7 score (0-4 normal; 5-9 mild; 10-14 moderate; 15-21 severe): 2 Source: Developed by Drs. Chetan Brewer, Estrellita Nuñez, Jt Lorenzo and colleagues, with an educational ozzy from [employer]. MAHESH-7 Assessment Billing MAHEHS-7 Assessment Tool: MAHESH-7 Assessment 54266 Review of Systems Const Denies chills and Denies fever(s) Eyes Denies blurry vision ENT Denies vertigo, Denies dizziness and Denies sore throat Card Denies chest pain at rest, Denies chest pain with activity, Denies diaphoresis, Denies dyspnea and Denies dyspnea on exertion Resp Denies cough, Denies dyspnea, Denies dyspnea on exertion and Denies wheezing GI Denies abdominal pain, Denies melena, Denies hematochezia, Denies constipation, Denies diarrhea and Denies loose stools Denies hematuria Musc Denies numbness and Denies tingling Skin/Breast Denies lesions Neuro Denies vertigo, Denies dizziness, Denies numbness and Denies tingling Psych Denies anxiety, Denies depression, Denies homicidal ideation, Denies suicidal ideation and Denies other (substance abuse) Aller/Immun Denies wheezing Physical exam (Primary Care) Vital Signs: Last Vital Signs Pulse 78 07/06/24 15:05 BP 130/70 07/06/24 15:05 Pulse Ox 98 07/06/24 15:05 BMI result Body Mass Index 25.5 Tobacco/Smoking Status: Tobacco use Status Tobacco use date assessed 07/06/24 07/06/24 15:07 Patient Tobacco Use Status Former Tobacco user 07/06/24 15:07 Tobacco use type Cigarette 07/06/24 15:07 e-Cigarette/Vaping Use Former Use 07/06/24 15:07 PHQ-9: PHQ-9 Score PHQ-9: Total score 0 07/06/24 15:39 Depression Screening Interpretation: Negative Thrive Assessment: Date of Thrive Assessment Date Thrive assessed 07/06/24 07/06/24 15:07 Currently or been in a relationship where the following occur: No concerns reported Const General: cooperative Nutritional Appearance: well nourished Orientation/consciousness: patient oriented x3 HENMT Head: Yes normal to inspection, Yes normocephalic and Yes atraumatic Ears: TM's normal bilaterally Eyes General: appearance normal, both eyes and all related structures Alignment and Position: alignment normal and position normal Neck Neck: Yes normal visual inspection, Yes no lymphadenopathy and Yes supple Resp Effort & Inspection: normal respiratory effort Auscultation: clear to auscultation bilaterally Cardio Rate: regular rate Rhythm: regular rhythm Heart sounds: S1 normal heart sound present, S2 normal heart sound present and Murmur heart sound present systolic (very faint) GI Palpation (GI): Soft to palpation and nontender Auscultation: normal bowel sounds Male General Exam: Yes normal external exam Penis: normal penis Scrotum: scrotum normal, testes descended bilaterally and inguinal hernia (large) on the right Testes: no testicular mass Skin Rashes: no rashes Neuro General: patient oriented x3, moves all extremities, no focal motor deficits and deep tendon reflexes 2+ bilaterally Romberg Test: Negative Psych Appearance: grossly normal Mental Status: mental status grossly normal Speech and movement: Normal speech and movement present Affect: normal affect Attitude: cooperative Thought process: Normal thought process present Thought content: Normal thought content present Insight: Good insight present (Psych) Judgement: Good judgement present (Psych) Immunizations pneumoc 20-dimitris conj-dip cr(PF) 0.5 mL IM syringe Performing Provider: CLIF Hendrix Performing Location: [facility] [place] [facility] Administered by: Julio Miles CMA on 07/06/24 15:39 Dose Route Admin Location Dispensed Lot Number Expiration Date [facility] Sample Case Porter 0.5 mL IM Right Deltoid 0.5 mL [id number] 09/12/25 0936-8189-57 WYETH/PFIZER VIS Given Date VIS Provided VIS Publication Date 07/06/24 Single Vaccine 21 Eligibility Eligibility Date Funding Source Not [facility] Eligible 07/06/24 Private Coding Level of Care Code Est Pt Prev Care >65y(76156) Diagnoses Physical exam Z00.00 Right inguinal hernia K40.90 Additional Codes MAHESH-7 Assessment Billing - MAHESH-7 Assessment Tool: MAHESH-7 Assessment 58642 ([id number]) PHQ-9 - 43537 - PHQ-9 Billing: Yes ([id number]) Assessment & Plan Assessment & Plan (1) Physical exam: Code(s): Z00.00 - Encounter for general adult medical examination without abnormal findings Category: Medical Plan: Labs ordered (2) Right inguinal hernia: Code(s): K40.90 - Unilateral inguinal hernia, without obstruction or gangrene, not specified as recurrent Category: Medical Plan: referred to Plan The patient agreed to the use of a medical center representative for this encounter. Scribed for CLIF Dixon by Rae Beckham medical center representative, on 07/06/2024 at 15:20 EST. Orders: Orders TSH reflex Free T4 Today Z00.00 - Encounter for general adult medical examination without abnormal findings Lipid Panel Today Z00.00 - Encounter for general adult medical examination without abnormal findings Complete Blood Count Auto Diff Today Z00.00 - Encounter for general adult medical examination without abnormal findings Comprehensive [place]. Panel Fast Today Z00.00 - Encounter for general adult medical examination without abnormal findings UA CC w/rflx Micro + Cult Today Z00.00 - Encounter for general adult medical examination without abnormal findings Pneumococcal 20 Immunization Today Z23 - Encounter for immunization Referrals General Surgery Referral K40.90 - Unilateral inguinal hernia, without obstruction or gangrene, not specified as recurrent
== END 2024-07-06 15:44 | disposition home or self-care (01) ==
PROVIDERS: PCP Nurse Practitioner Family; Visit Provider Nurse Practitioner Family
DX: Z00.00 Encounter for general adult medical examination without abnormal findings (principal); K40.90 Unilateral inguinal hernia, without obstruction or gangrene, not specified as recurrent; Z23 Encounter for immunization

== ENCOUNTER → 2024-07-06 14:57 | Outpatient (BNVA) | payer OTHER, SELFPAY | PROVIDERS: PCP Nurse Practitioner Family; Visit Provider Nurse Practitioner Family | DX: Z00.01 Encounter for general adult medical examination with abnormal findings (principal); K40.90 Unilateral inguinal hernia, without obstruction or gangrene, not specified as recurrent; Z23 Encounter for immunization | CPT/HCPCS: 90471; 90677; 96127 ==

== ENCOUNTER 2024-07-11 07:59 | Outpatient (REF) | payer OTHER, SELFPAY | END 2024-07-11 08:00 | disposition home or self-care (01) | LOC: HO.US 07:59 | PROVIDERS: PCP Nurse Practitioner Family; Visit Provider Urology | DX: N20.0 Calculus of kidney (principal) | CPT/HCPCS: 76775 ==

== ENCOUNTER 2024-07-19 08:12 | Outpatient (REF) | payer OTHER, SELFPAY ==
[2024-07-19 09:04] LABS: Basophils Absolute Auto 0.1 X10*3/uL (0.0-0.2); Basophils Percent Auto 1.6 % (0-2); Eosinophils Absolute Auto 0.1 X10*3/uL (0.0-0.4); Eosinophils Percent Auto 2.2 % (0-4); Hematocrit 32.9 % (42.0-52.0); Imm Gran Abs Auto 0.01 X10*3/uL (0.00-0.03); Imm Gran Pct Auto 0.2 % (0.0-0.4); Lymphocytes Absolute Auto 1.6 X10*3/uL (1.2-4.9); Lymphocytes Percent Auto 32.9 % (20-40); Mean Corpuscular HGB Conc 30.4 g/dl (31.0-36.0); Mean Corpuscular Hemoglobin 19.3 pg (27.0-33.0); Mean Corpuscular Volume 63.6 fL (80.0-98.0); Monocytes Absolute Auto 0.5 X10*3/uL (0.1-1.2); Monocytes Percent Auto 10.3 % (2-11); Neutrophils Absolute Auto 2.6 x10*3/uL (2.0-8.3); Neutrophils Percent Auto 52.8 % (45-73); Platelet Count 307 X10*3/uL (160-400); Red Blood Count 5.17 X10*6/uL (4.60-5.80); Red Cell Distribution Width 20.5 % (11.0-16.0); White Blood Count 4.9 X10*3/uL (4.8-10.8)
[2024-07-19 09:07] LABS: MANUAL DIFF FLAG SCAN
[2024-07-19 09:29] LABS: SLIDE REVIEW VERIFIED
[2024-07-19 09:38] LABS: Alanine Aminotransferase 20 U/L (0-40); Albumin Level 4.3 g/dL (3.5-5.0); Alkaline Phosphatase 61 U/L (39-117); Anion Gap 12 (12-20); Aspartate Amino Transferase 21 U/L (5-37); Bilirubin Total 0.5 mg/dL (0.0-1.0); Blood Urea Nitrogen 28 mg/dL (9-16); Calcium 9.1 mg/dL (8.4-10.2); Carbon Dioxide 24 mmol/L (22-29); Chloride 106 mmol/L (96-108); Cholesterol 191 mg/dL (<200); Estimated Glomerular Filt Rate > 60; Glucose Fasting 92 mg/dL (60-99); HDL Cholesterol 65 mg/dL (>40); LDL Cholesterol Calculated 118 mg/dL (<100); Potassium 4.2 mmol/L (3.3-5.1); Sodium 138 mmol/L (135-145); Total Protein 7.3 g/dL (6.5-8.0); Triglycerides 43 mg/dL (<150)
[2024-07-19 09:40] LABS: Appearance Urine Cloudy; Color Urine RED; Glucose Urine UA Negative (Negative); Leukocyte Esterase Urine Moderate (2+) (Negative); PH 6.5 (5.0-9.0); Specific Gravity - Urine 1.025 (1.005-1.025); UMIC TRIGGER UACC YES; Urine Blood Large (3+) (Negative); Urine Protein 300 (3+) mg/dL (Neg-Trace)
[2024-07-19 10:01] LABS: TSH reflex Free T4 1.94 uIU/mL (0.32-4.0)
[2024-07-19 10:34] LABS: Bacteria Urine None Seen (None Seen); Hyaline Casts Urine 0-2 /LPF (0-2); Squamous Epithelial Cell Urine 0-2 /HPF (0-2); UACC Culture Trigger YES; WBC Urine >50 /HPF (0-5)
[2024-07-19 10:35] LABS: RBC Urine >20 /HPF (0-2)
== END 2024-07-19 08:13 | disposition home or self-care (01) ==
LOC: HO.LAB 08:12
PROVIDERS: PCP Nurse Practitioner Family; Visit Provider Nurse Practitioner Family
DX: Z00.00 Encounter for general adult medical examination without abnormal findings (principal); N40.0 Benign prostatic hyperplasia without lower urinary tract symptoms
CPT/HCPCS: 36415; 80053; 80061; 81001; 81003; 84443; 85025; 87086

== ENCOUNTER 2024-07-19 08:57 | Outpatient (AMB) | payer OTHER, SELFPAY ==
--- NOTE | 2024-07-19 09:15 | MHC.OFFVIS ---
Intake Visit Reasons: 2M US/Urinalysis Check(Set) Intake Note: Patient is present for 2M US/URINALYSIS Urology Medication:NONE Antibiotic Allergy:NONE Blood Thinner:NONE Analyst Business Analysis Required: No Allergies No Known Allergies Allergy (Verified 07/19/24 09:16) HPI Comments Details: Sancho is a pleasant male. He is a patient of Dr. Davis. He seen for the following urologic conditions - BPH - gross hematuria - urinary tract infection Two month follow-up for prostatitis Persistent UTI on UA Will send for culture Had episode of hematuria which resolved with Augmentin On cystoscopy Has inflamed prostate still Will add low-dose Augmentin for 90 days Nephrolithiasis Right renal stone secondary to stent fragment 07/16 PCN required Imaging - 07/17 renal ultrasound 5 mm Lower urinary tract symptoms Nocturia resolved and better emptying following procedure 04/14 GreenLight laser prostate, 09/16 GreenLight laser Pathology - BPH, large prostate 200 gm - biopsy negative Previously on finasteride Gross hematuria with urinary tract infection Imaging - 11/12 CT scan large prostate with bladder wall thickening Microbiology - 11/12 Aerococcus urinae - sensitivity per Google search Augmentin PSA 03/14 16, 09/15 11, 03/15 8.4 15% Therapeutic plan - continue to follow [facility] Medical History Coagulase negative Staphylococcus bacteremia Hydronephrosis concurrent with and due to calculi of kidney and ureter Bladder stones Myxomatous mitral valve PICC (peripherally inserted central catheter) in place Kidney stones Pyelonephritis MSSA bacteremia Acute kidney injury Ureteral stent present BPH (benign prostatic hyperplasia) Detached retina Hernia Surgical History Status post ablation of incompetent vein using laser (07/25/22) History of cystoscopy History of prostate surgery Hx of varicose vein ligation (~11/2023) History of eye surgery History of umbilical hernia repair Family History Sister Melanoma Social History Household Members: Family Housing: House Are you a primary plant health care technician to a significant other at home: No Do you presently have visiting nurse or other home services: No Alcohol intake: former Comment: medicated with po tylenol Patient Tobacco Use Status: Former Tobacco user Tobacco use type: Cigarette e-Cigarette/Vaping Use: Former Use Second Hand Smoke Exposure: No Advance Directives Date on File: 12/01/22 service: No Current occupational status: employed Current occupation: [employer] Cognitive needs: No Hearing needs: No Vision needs: Yes Results AMB Urinalysis, Automated UA Leukoctes 500 David/uL Last Edit by FABIAN Kumar on 07/19/24 09:30 UA Nitrite Positive Last Edit by FABIAN Kumar on 07/19/24 09:30 UA Urobilinogen 2 mg/dL Last Edit by FABIAN Kumar on 07/19/24 09:30 UA Protein 300 mg/dL Last Edit by FABIAN Kumar on 07/19/24 09:30 UA pH 5.0 Last Edit by FABIAN Kumar on 07/19/24 09:30 UA Blood 200 Ulysses/uL Last Edit by FABIAN Kumar on 07/19/24 09:30 UA Specific [place]vel 1.030 Last Edit by FABIAN Kumar on 07/19/24 09:30 UA Ketone Negative Last Edit by FABIAN Kumar on 07/19/24 09:30 UA Bilirubin 0 mg/dL Last Edit by FABIAN Kumar on 07/19/24 09:30 UA Glucose 100 mg/dL Last Edit by FABIAN Kumar on 07/19/24 09:30 Results Reviewed Results Reviewed: Laboratory Last Values Urine pH (Auto) 5.0 07/19/24 09:30 Specific [place]vel (Auto) 1.030 07/19/24 09:30 Urine Protein (Auto) 300 mg/dL 07/19/24 09:30 Glucose (UA)(Auto) 100 mg/dL 07/19/24 09:30 Urine Ketones (Auto) Negative 07/19/24 09:30 Urine Blood (Auto) 200 Ulysses/uL 07/19/24 09:30 Urine Nitrite (Auto) Positive 07/19/24 09:30 Urine Bilirubin (Auto) 0 mg/dL 07/19/24 09:30 Urine Urobilinogen (Auto) 2 mg/dL 07/19/24 09:30 Leukocyte Esterase (Auto) 500 David/uL 07/19/24 09:30 Assessment & Plan Assessment & Plan Orders: Orders AMB Urinalysis Automated Today Z13.9 - Encounter for screening, unspecified Coding
== END 2024-07-19 09:49 | disposition home or self-care (01) ==
LOC: HO.HUSH 08:57
PROVIDERS: PCP Nurse Practitioner Family; Visit Provider Urology
DX: Z13.9 Encounter for screening, unspecified (principal)

== ENCOUNTER 2024-07-26 13:26 | Outpatient (AMB) | payer OTHER, SELFPAY ==
--- NOTE | 2024-07-26 13:33 | MHC.OFFVIS ---
Vital Signs 07/26/24 13:35 Height 6 ft 1 in Weight 194 lb 4 oz BMI 25.6 BP 128/69 Blood Pressure Location Lt brachial Position Sitting Pulse 70 Intake Visit Reasons: Unilateral inguinal hernia Intake Note: Patient is seen in office for evaluation of an unilateral inguinal hernia. Pt c/o: left groin lump, onset for a year, increase in size, pain is currently constant, heavy lifting, denies n/v/d/c, no prior imaging Storage Center Manager Required: No Manager Relationship: Manager Relationship Present Accompanied by: chinyere Allergies No Known Allergies Allergy (Verified 07/26/24 13:34) Medication List - Last Reconciled 07/27/24 by Clyde Sandy MD cefuroxime axetil 500 mg PO BID 7 days cholecalciferol (vitamin D3) (Vitamin D3) 50 mcg PO DAILY multivitamin 1 tab PO DAILY zinc acetate 50 mg PO DAILY HPI Comments Details: 69-year-old male patient presenting with a gradually enlarging lump in the right groin which he feels is consistent with a hernia. He denies any inciting event but reports a gradual onset of the lump. He now has occasional discomfort when the lump is distended. The lump does reduce with light pressure and when laying down. He denies any nausea, vomiting, fever or chills. His bowel habits are normal and denies any bloody stool. He denies a previous history of a right inguinal hernia but did undergo a previous left inguinal hernia repair. [facility] Medical History Coagulase negative Staphylococcus bacteremia Hydronephrosis concurrent with and due to calculi of kidney and ureter Bladder stones Myxomatous mitral valve PICC (peripherally inserted central catheter) in place Kidney stones Pyelonephritis MSSA bacteremia Acute kidney injury Ureteral stent present BPH (benign prostatic hyperplasia) Detached retina Hernia Surgical History Status post ablation of incompetent vein using laser (07/25/22) History of cystoscopy History of prostate surgery Hx of varicose vein ligation (~11/2023) History of eye surgery History of umbilical hernia repair Family History Sister Melanoma Social History Household Members: Family Housing: House Are you a primary rn care manager to a significant other at home: No Do you presently have visiting nurse or other home services: No Alcohol intake: former Comment: medicated with po tylenol Patient Tobacco Use Status: Former Tobacco user Tobacco use type: Cigarette e-Cigarette/Vaping Use: Former Use Second Hand Smoke Exposure: No Advance Directives Date on File: 12/01/22 service: No Current occupational status: employed Current occupation: [employer] Cognitive needs: No Hearing needs: No Vision needs: Yes Review of Systems Const Denies chills, Denies fever(s), Denies headache(s) and Denies poor appetite ENT Denies dizziness and Denies headache(s) Card Denies chest pain, Denies rapid heart rate, Denies palpitations and Denies slow heart rate Resp Denies chest congestion, Denies cough, Denies pain on inspiration and Denies wheezing GI Denies abdominal pain, Denies bloating, Denies change in stool character, Denies constipation, Denies diarrhea, Denies nausea, Denies vomiting and Denies hematemesis Musc Denies back pain, Denies arthralgias, Denies joint swelling and Denies numbness Skin/Breast Denies change in pigmentation, Denies erythema and Denies rash Neuro Denies dizziness, Denies headache(s) and Denies numbness Psych Denies anxiety and Denies depression Endo Denies palpitations Shawn/Lymph Denies easy bleeding, Denies easy bruising and Denies lymphadenopathy Aller/Immun Denies wheezing Physical Exam Vital Signs: Last Vital Signs Pulse 70 07/26/24 13:35 BP 128/69 07/26/24 13:35 BMI result Body Mass Index 25.6 Const General: no acute distress Nutritional Appearance: well nourished Orientation/consciousness: patient oriented x3 Resp Effort & Inspection: normal respiratory effort, no audible wheezes, no cough and no respiratory distress GI Other: Examination in the standing position reveals an easily identified right inguinal hernia. The hernia increases in size with Valsalva maneuvers and easily reduces with light pressure. No tenderness is elicited with pressure. No left inguinal hernia could be identified. Inspection: Yes normal to inspection Palpation (GI): Soft to palpation, nontender and no guarding Skin Other: Warm, dry, no rashes Neuro General: patient oriented x3 Extrem Other: No edema Assessment & Plan Assessment & Plan (1) Right inguinal hernia: Code(s): K40.90 - Unilateral inguinal hernia, without obstruction or gangrene, not specified as recurrent Category: Medical Plan 69-year-old male patient presenting with a reducible right inguinal hernia which is beginning to cause some mild symptoms. On examination hernia does increase in size with Valsalva maneuvers but reduces with light pressure. I recommended repair of the right inguinal hernia with mesh. I reviewed the procedure, risks, and alternatives in detail and he consents to the open repair of a right inguinal hernia with mesh. Coding Level of Care Code New Pt Level 4 (09028) Diagnoses Right inguinal hernia K40.90
[2024-07-26 13:35] VITALS: BP 128/69; PULSE 70; BMI 25.6
== END 2024-07-26 13:59 | disposition home or self-care (01) ==
PROVIDERS: PCP Nurse Practitioner Family; Visit Provider Surgery
DX: K40.90 Unilateral inguinal hernia, without obstruction or gangrene, not specified as recurrent (principal)
CPT/HCPCS: 99214

== ENCOUNTER → 2024-07-26 13:26 | Outpatient (BNVA) | payer OTHER, SELFPAY | PROVIDERS: PCP Nurse Practitioner Family; Visit Provider Surgery ==

== ENCOUNTER 2024-08-11 10:18 | Outpatient (REF) | payer OTHER, SELFPAY ==
--- NOTE | 2024-08-11 10:25 | ECG_ITS ---
Test Reason : preop Blood Pressure : / mmHG Vent. Rate : 059 BPM Atrial Rate : 059 BPM P-R Int : 248 ms QRS Dur : 104 ms QT Int : 404 ms P-R-T Axes : 019 029 049 degrees QTc Int : 399 ms Sinus bradycardia with 1st degree A-V block Low voltage QRS Incomplete right bundle branch block Borderline ECG When compared with ECG of 29-NOV-2022 17:47, MA interval has increased Vent. rate has decreased BY 40 BPM QT has shortened Referred By: Clyde Bruner Electronically Signed By:MARVIN WALKER
[2024-08-11 11:13] LABS: Immature Retic Fraction 28.4 % (2.3-13.4); Retic HGB Equivalent 19.4 pg (30.0-35.0); Reticulocyte Percent 0.7 % (0.5-1.8); Reticulocytes Absolute 0.034 X10*6/uL (0.026-0.095)
[2024-08-11 11:41] LABS: Iron 15 mcg/dL (45-160); Lactate Dehydrogenase 178 U/L (118-273); Percent Iron Saturation 4 % (15-50); Total Iron Binding Capacity 357 mcg/dL (228-428); Unsaturated Iron Binding 342 ug/dL
[2024-08-11 11:58] LABS: Ferritin 9 ng/mL (20-250)
[2024-08-11 12:11] LABS: Prostate Specific Antigen 26.71 ng/mL (<0.05-4.0)
[2024-08-11 12:16] LABS: Appearance Urine Clear; Color Urine Yellow; Glucose Urine UA Negative (Negative); Leukocyte Esterase Urine Moderate (2+) (Negative); Nitrite Urine Negative (Negative); PH 5.5 (5.0-9.0); Specific Gravity - Urine 1.025 (1.005-1.025); UMIC TRIGGER UACC YES; Urine Blood Small (1+) (Negative); Urine Ketones Negative (Negative); Urine Protein Negative (Neg-Trace)
[2024-08-11 12:24] LABS: Bacteria Urine None Seen (None Seen); Hyaline Casts Urine 0-2 /LPF (0-2); Squamous Epithelial Cell Urine 0-2 /HPF (0-2); UACC Culture Trigger YES; WBC Urine >50 /HPF (0-5)
[2024-08-11 12:26] LABS: Folate 15.4 ng/mL (> or = 4.0); Vitamin B12 653 pg/mL (200-900)
[2024-08-16 09:34] LABS: Hematocrit 34.2 % (38.5-50.0); Hemoglobin 9.6 g/dL (13.2-17.1); MCH 18.6 pg (27.0-33.0); MCV 66.4 fL (80.0-100.0); RBC 5.15 Million/uL (4.20-5.80); RDW 19.2 % (11.0-15.0)
== END 2024-08-11 10:19 | disposition home or self-care (01) ==
LOC: HO.LAB 10:18
PROVIDERS: Urology; PCP Nurse Practitioner Family; Visit Provider Nurse Practitioner Family
DX: D64.9 Anemia, unspecified (principal); Z01.818 Encounter for other preprocedural examination; N40.1 Benign prostatic hyperplasia with lower urinary tract symptoms; N13.8 Other obstructive and reflux uropathy; Z12.5 Encounter for screening for malignant neoplasm of prostate
CPT/HCPCS: 36415; 81001; 81003; 82607; 82728; 82746; 83020; 83540; 83615; 84153; 85014; 85018; 85041; 85045; 87086; 87088; 93005

== ENCOUNTER → 2024-08-11 10:25 | Outpatient (BNV) | payer OTHER, SELFPAY | PROVIDERS: PCP Nurse Practitioner Family; Visit Provider Internal Medicine | DX: R00.1 Bradycardia, unspecified (principal) | CPT/HCPCS: 93010 ==

== ENCOUNTER 2024-08-27 15:22 | Outpatient (REF) | payer OTHER, SELFPAY ==
[2024-08-28 07:30] LABS: FIT Int Ctl YES; FIT Lot M402476; FIT1 NEGATIVE (NEGATIVE)
== END 2024-08-27 15:23 | disposition home or self-care (01) ==
LOC: HO.LNP 15:22
PROVIDERS: Visit Provider Nurse Practitioner Family
DX: D64.9 Anemia, unspecified (principal)
CPT/HCPCS: 82274

== ENCOUNTER 2024-08-30 06:08 | Outpatient (REF) | payer OTHER, SELFPAY ==
--- NOTE | ~2024-08-30 | FL_ITS ---
EXAMINATION: FLUOROSCOPY GUIDANCE FOR NEEDLE PLACEMENT CLINICAL INFORMATION: m16.11 , right hip inj COMPARISON: None available. TECHNIQUE: Operative fluoroscopy guidelines for treatment in the right hip. Physician present. There 3 images obtained.. FINDINGS: Right-sided hip injection under fluoroscopy guidance. FLUOROSCOPY TIME: 0.3 minutes. DOSE AREA PRODUCT: 5.73 uGy-m2 (microgray-meter squared) FL/FL guidance in treatment room IMPRESSION: Intraoperative fluoroscopy guidance for a right hip injection Electronically signed by: Pedro Villalobos MD 09/07/2024 02:49 PM NGUYEN OTERO
== END 2024-08-30 06:09 | disposition home or self-care (01) ==
LOC: CF 06:08
PROVIDERS: Visit Provider Anesthesiology
DX: M16.11 Unilateral primary osteoarthritis, right hip (principal); M25.551 Pain in right hip; M17.0 Bilateral primary osteoarthritis of knee; M19.90 Unspecified osteoarthritis, unspecified site; M54.50 Low back pain, unspecified
CPT/HCPCS: J2003; J2795; Q9967

== ENCOUNTER 2024-08-30 07:34 | Outpatient (AMB) | payer SELFPAY ==
--- NOTE | 2024-08-30 07:41 | A.OFFVIS_ITS ---
Vital Signs 08/30/24 07:42 08/30/24 08:30 BP 134/75 121/73 Blood Pressure Location Lt brachial Lt brachial Position Sitting Sitting Pulse 74 81 Pulse Source Pulse Oximeter Pulse Oximeter Pulse Oximetry (%) 99 98 Oxygen Delivery Method Room Air Room Air Comment Pre procedure Post procedure Intake Visit Reasons: PRP RIGH HIP JOINT Allergies No Known Allergies Allergy (Verified 07/26/24 13:34) PFSH Medical History Coagulase negative Staphylococcus bacteremia Hydronephrosis concurrent with and due to calculi of kidney and ureter Bladder stones Myxomatous mitral valve PICC (peripherally inserted central catheter) in place Kidney stones Pyelonephritis MSSA bacteremia Acute kidney injury Ureteral stent present BPH (benign prostatic hyperplasia) Detached retina Hernia Surgical History Status post ablation of incompetent vein using laser (07/25/22) History of cystoscopy History of prostate surgery Hx of varicose vein ligation (~11/2023) History of eye surgery History of umbilical hernia repair Family History Sister Melanoma Social History Household Members: Family Housing: House Are you a primary child care counselor to a significant other at home: No Do you presently have visiting nurse or other home services: No Alcohol intake: former Comment: medicated with po tylenol Patient Tobacco Use Status: Former Tobacco user Tobacco use type: Cigarette e-Cigarette/Vaping Use: Former Use Second Hand Smoke Exposure: No Advance Directives Date on File: 12/01/22 service: No Current occupational status: employed 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 - [employer] Cognitive needs: No Hearing needs: No Vision needs: Yes Physical Exam Vital Signs: Last Vital Signs Pulse 81 08/30/24 08:30 BP 121/73 08/30/24 08:30 Pulse Ox 98 08/30/24 08:30 Oxygen Delivery Method Room Air 08/30/24 08:30 Assessment & Plan Assessment & Plan (1) Primary osteoarthritis of right hip: Code(s): M16.11 - Unilateral primary osteoarthritis, right hip Category: Medical (2) Osteoarthritis of left knee: Code(s): M17.12 - Unilateral primary osteoarthritis, left knee Category: Medical (3) Osteoarthritis of right knee: Code(s): M17.11 - Unilateral primary osteoarthritis, right knee Category: Medical (4) Osteoarthritis: Code(s): M19.90 - Unspecified osteoarthritis, unspecified site Category: Medical (5) Primary osteoarthritis of left hip: Code(s): M16.12 - Unilateral primary osteoarthritis, left hip Category: Medical Plan: In strict sterile condition the patient is antecubital vein on the left was accessed and 60 cc of autologous blood was obtained. It was prepped in sterile condition in centrifuge and it was used for pre-injection described as below. (6) Low back pain: Code(s): M54.50 - Low back pain, unspecified Category: Medical Plan: intra-articular right hip PRP injection. Informed consent was explained to the patient. All questions were explained and? answered.? Patient's right antecubital area was prepped with alcohol and 60 cc of autologous blood was obtained in strict sterile conditions. The blood was processed in the PRP machine and 6 cc of centrifuged PRP was obtained in strict sterile condition. After that the patient was taken inside the operating room where he was positioned left lateral decubitus on the operating table.? Time-out was performed delineating correct site, side, the nature of the procedure, patient's allergy, preoperative antibiotic if needed.? All operating room staff was participating in OR time-out procedure.? The patient stated his name. Non dependent right hip was prepped with ChloraPrep and draped with sterile towels.? The C-arm was brought over the operating field and the picture of [facility] hip joints were obtained on the screen.? The right hip joint was chosen as the target for the injection.? The trochanter position was noted on the screen.? The projection of the trochanter to the skin was noted, the direction of the femoral neck was noted.? The skin was anesthetized using 2% lidocaine at the trochanter area.? 22 gauge 5 in needle was inserted through the skin and advanced to the hip joint silhouette on anterior posterior view.? When needle entered the joint the injection of the contrast was performed demonstrating intra-articular spread of the contrast.? After that 6 cc of platelet rich plasma was injected into the area.? The needle was removed sterile dressing was applied. The patient tolerated procedure well. Orders: Plan the patient tolerated procedure well he was informed to spread of the preparation inside his hip joint by taking his thigh medially and laterally. Orders: Orders AMB Platelet Rich Plasma (PRP) Injection Today M16.11 - Unilateral primary osteoarthritis, right hip FL guidance in treatment room Today M16.11 - Unilateral primary osteoarthritis, right hip FL guidance in treatment room Today M16.12 - Unilateral primary osteoarthritis, left hip Coding Level of Care Code Procedure Only Diagnoses Primary osteoarthritis of right hip M16.11 Osteoarthritis of left knee M17.12 Osteoarthritis of right knee M17.11 Osteoarthritis M19.90 Primary osteoarthritis of left hip M16.12 Low back pain M54.50
[2024-08-30 07:42] VITALS: BP 134/75; PULSE 74; O2SAT 99
[2024-08-30 08:30] VITALS: BP 121/73; PULSE 81; O2SAT 98
== END 2024-08-30 08:34 | disposition home or self-care (01) ==
LOC: HO.PMCPRC 07:34
PROVIDERS: PCP Nurse Practitioner Family; Visit Provider Anesthesiology
DX: M16.11 Unilateral primary osteoarthritis, right hip (principal); M17.0 Bilateral primary osteoarthritis of knee; M17.11 Unilateral primary osteoarthritis, right knee; M19.90 Unspecified osteoarthritis, unspecified site; M54.50 Low back pain, unspecified
CPT/HCPCS: 0232T

== ENCOUNTER 2024-09-13 11:30 | Outpatient (REF) | payer OTHER, SELFPAY ==
[2024-09-13 11:44] LABS: MANUAL DIFF FLAG NO
[2024-09-13 12:37] LABS: Basophils Absolute Auto 0.1 X10*3/uL (0.0-0.2); Basophils Percent Auto 1.4 % (0-2); Eosinophils Absolute Auto 0.1 X10*3/uL (0.0-0.4); Eosinophils Percent Auto 1.7 % (0-4); Hematocrit 38.3 % (42.0-52.0); Hemoglobin 11.6 g/dl (14.0-18.0); Imm Gran Abs Auto 0.02 X10*3/uL (0.00-0.03); Imm Gran Pct Auto 0.3 % (0.0-0.4); Lymphocytes Absolute Auto 1.8 X10*3/uL (1.2-4.9); Lymphocytes Percent Auto 27.6 % (20-40); Mean Corpuscular HGB Conc 30.3 g/dl (31.0-36.0); Mean Corpuscular Hemoglobin 20.9 pg (27.0-33.0); Mean Corpuscular Volume 68.9 fL (80.0-98.0); Monocytes Absolute Auto 0.6 X10*3/uL (0.1-1.2); Monocytes Percent Auto 8.3 % (2-11); Neutrophils Percent Auto 60.7 % (45-73); Platelet Count 263 X10*3/uL (160-400); Red Blood Count 5.56 X10*6/uL (4.60-5.80); Red Cell Distribution Width 31.7 % (11.0-16.0); White Blood Count 6.6 X10*3/uL (4.8-10.8)
[2024-09-13 12:52] LABS: Appearance Urine Clear; Color Urine Yellow; Glucose Urine UA Negative (Negative); Leukocyte Esterase Urine Moderate (2+) (Negative); Nitrite Urine Negative (Negative); PH 5.5 (5.0-9.0); UMIC TRIGGER UACC YES; Urine Blood Large (3+) (Negative); Urine Ketones Negative (Negative); Urine Protein Trace mg/dL (Neg-Trace)
[2024-09-13 13:10] LABS: Alanine Aminotransferase 20 U/L (0-40); Albumin Level 4.3 g/dL (3.5-5.0); Alkaline Phosphatase 60 U/L (39-117); Anion Gap 10 (12-20); Aspartate Amino Transferase 20 U/L (5-37); Bilirubin Total 0.4 mg/dL (0.0-1.0); Blood Urea Nitrogen 36 mg/dL (9-16); Calcium 9.2 mg/dL (8.4-10.2); Carbon Dioxide 25 mmol/L (22-29); Chloride 107 mmol/L (96-108); Estimated Glomerular Filt Rate 59; Glucose Random 107 mg/dL (60-115); Iron 134 mcg/dL (45-160); Percent Iron Saturation 37 % (15-50); Potassium 4.2 mmol/L (3.3-5.1); Sodium 138 mmol/L (135-145); Total Iron Binding Capacity 367 mcg/dL (228-428); Total Protein 7.5 g/dL (6.5-8.0); Unsaturated Iron Binding 233 ug/dL
[2024-09-13 13:23] LABS: Bacteria Urine None Seen (None Seen); Hyaline Casts Urine 0-2 /LPF (0-2); RBC Urine >20 /HPF (0-2); Squamous Epithelial Cell Urine 0-2 /HPF (0-2); UACC Culture Trigger YES; WBC Urine >50 /HPF (0-5)
[2024-09-13 13:25] LABS: Ferritin 54 ng/mL (20-250)
== END 2024-09-13 11:31 | disposition home or self-care (01) ==
LOC: HO.LAB 11:30
PROVIDERS: PCP Nurse Practitioner Family; Visit Provider Nurse Practitioner Family
DX: D64.9 Anemia, unspecified (principal)
CPT/HCPCS: 36415; 80053; 81001; 81003; 82728; 83540; 85025; 87086; 87088

== ENCOUNTER 2024-09-20 13:04 | Outpatient (AMB) | payer OTHER, SELFPAY ==
--- NOTE | 2024-09-20 13:05 | MHC.OFFVIS ---
Intake Visit Reasons: Microgen Followup Intake Note: Patient is present for MICROGEN F/U Urology Medication:NONE Antibiotic Allergy:NONE Blood Thinner:NONE Qa Consultant Required: No Allergies No Known Allergies Allergy (Verified 09/20/24 13:05) HPI Comments Details: Sancho is a pleasant male. He is a patient of Dr. Davis. He seen for the following urologic conditions - BPH - gross hematuria - urinary tract infection Prostate culture showed Kathleen Initial treatment with short course low-dose fluconazole Partially effective Literature reviewed recommendation for 400 mg fluconazole daily for 4 weeks Jose Jean E.J. Prostatitis Due to Kathleen albicans. Infectious Diseases in Clinical Practice 14(4): [id number] Prescription provided 6 week follow-up Nephrolithiasis Right renal stone secondary to stent fragment 07/16 PCN required Imaging - 07/17 renal ultrasound 5 mm Lower urinary tract symptoms Nocturia resolved and better emptying following procedure 04/14 GreenLight laser prostate, 09/16 GreenLight laser Pathology - BPH, large prostate 200 gm - biopsy negative Previously on finasteride Gross hematuria with urinary tract infection Imaging - 11/12 CT scan large prostate with bladder wall thickening Microbiology - 11/12 Aerococcus urinae - sensitivity per Google search Augmentin PSA 03/14 16, 09/15 11, 03/15 8.4 15%, 08/16 27 Therapeutic plan - continue to follow [facility] Medical History Coagulase negative Staphylococcus bacteremia Hydronephrosis concurrent with and due to calculi of kidney and ureter Bladder stones Myxomatous mitral valve PICC (peripherally inserted central catheter) in place Kidney stones Pyelonephritis MSSA bacteremia Acute kidney injury Ureteral stent present BPH (benign prostatic hyperplasia) Detached retina Hernia Surgical History Status post ablation of incompetent vein using laser (07/25/22) History of cystoscopy History of prostate surgery Hx of varicose vein ligation (~11/2023) History of eye surgery History of umbilical hernia repair Family History Sister Melanoma Social History Household Members: Family Housing: House Are you a primary career resource specialist to a significant other at home: No Do you presently have visiting nurse or other home services: No Alcohol intake: former Comment: medicated with po tylenol Patient Tobacco Use Status: Former Tobacco user Tobacco use type: Cigarette e-Cigarette/Vaping Use: Former Use Second Hand Smoke Exposure: No Advance Directives Date on File: 12/01/22 service: No Current occupational status: employed 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 - [employer] Cognitive needs: No Hearing needs: No Vision needs: Yes Review of Systems Const All systems reviewed & are unremarkable except as noted in HPI and below Reports no additional complaints Resp Reports no additional complaints GI Reports no additional complaints Reports as per HPI Musc Reports no additional complaints Physical Exam Telemedicine evaluation Appropriate responses Regular breathing rate and rhythm HEENT Head: Yes normal to inspection Ears: hearing grossly normal bilaterally Eyes General: appearance normal, both eyes and all related structures Neck Neck: Yes normal visual inspection Chest Chest palpation & inspection: normal inspection of the chest Resp Effort & Inspection: normal respiratory effort and able to speak in complete sentences Telehealth Telehealth Telehealth Platform: [email or web address] Location of provider rendering services: practice address Location of patient: address on file Patient Identification confirmed using: Name, : Yes Telehealth method: video Patient verbally consented to treatment: Yes Patient verbally consented to billing insurance company: Yes Patient informed of any privacy concerns related to visit: Yes Minutes spent on Phone/Video with Pt.: 15 Assessment & Plan Assessment & Plan (1) Fungal infection: Code(s): B49 - Unspecified mycosis Category: Medical Plan Six week follow-up Medications: Changed From fluconazole 200mg first day, followed by 4 days of only 100mg 100 mg PO DAILY 6 tabs 0RF To fluconazole Daily 400 mg (2 x 200 mg) PO DAILY 30 days 60 tabs 0RF Patient Instructions: Imaging studies, laboratory and physical exam results were discussed and reviewed in detail. No major barriers to patient understanding were identified. An opportunity to ask questions regarding the treatment plan was provided. All questions were answered. The patient expressed understanding and agreement with the above treatment plan. The patient is aware they should contact our office by phone for worsening of their current condition or the appearance of new urologic symptoms. Compliance is encouraged with any medications and followup testing that is ordered. It is a privilege to participate in the urologic care of your patient. If you have any questions or concerns regarding treatment for the above conditions, or other urologic issues, please do not hesitate to contact me. The office telephone contact is [phone]. This note is constructed using voice recognition software. While every effort has been made to ensure accuracy chief bank examiner errors may have been included. Yours sincerely, Dr Rod Phillips MD, [facility] - Urology Providers of Expert, Compassionate Care for the Genitourinary System Coding Level of Care Code Tele Est Pt Level 4 (80635) Diagnoses Fungal infection B49
== END 2024-09-20 14:26 | disposition home or self-care (01) ==
LOC: HO.HUSH 13:04
PROVIDERS: PCP Nurse Practitioner Family; Visit Provider Urology
DX: B49 Unspecified mycosis (principal)
CPT/HCPCS: 99214

== ENCOUNTER → 2024-09-28 10:44 | Outpatient (BNV) | payer OTHER, SELFPAY | PROVIDERS: PCP Nurse Practitioner Family; Visit Provider Internal Medicine Cardiovascular Disease | DX: I44.0 Atrioventricular block, first degree (principal); I45.10 Unspecified right bundle-branch block | CPT/HCPCS: 93010 ==

== ENCOUNTER 2024-10-05 08:32 | Outpatient (REF) | payer OTHER, SELFPAY | END 2024-10-05 08:33 | disposition home or self-care (01) | LOC: HO.LNP 08:32 | PROVIDERS: PCP Nurse Practitioner Family; Visit Provider Urology | DX: N40.1 Benign prostatic hyperplasia with lower urinary tract symptoms (principal); A49.9 Bacterial infection, unspecified; N13.8 Other obstructive and reflux uropathy; B37.49 Other urogenital candidiasis; N51 Disorders of male genital organs in diseases classified elsewhere | CPT/HCPCS: 51798; 81003; 87086 ==

== ENCOUNTER 2024-10-05 08:32 | Outpatient (AMB) | payer OTHER, SELFPAY ==
--- NOTE | 2024-10-05 08:35 | MHC.OFFVIS ---
Intake Visit Reasons: 3m/UA/PVR Intake Note: Pt presents to the office today for a 3 month UA/PVR. PVR:112mL Allergies No Known Allergies Allergy (Verified 10/05/24 08:36) HPI Comments Details: Sancho is a pleasant male. He is a patient of Dr. Davis. He seen for the following urologic conditions - BPH - gross hematuria - urinary tract infection Follow-up after therapy UA today 3+ blood Still seeing occasional blood Will plan on urine culture today and check cysto in 6 weeks Is having gradual improvement Fungal prostatitis Kathleen albicans on Microgen- 08/16 Literature reviewed recommendation for 400 mg fluconazole daily for 4 weeks Jose Jean E.J. Prostatitis Due to Kathleen albicans. Infectious Diseases in Clinical Practice 14(4): [id number] Nephrolithiasis Right renal stone secondary to stent fragment 07/16 PCN required Imaging - 07/17 renal ultrasound 5 mm Lower urinary tract symptoms Nocturia resolved and better emptying following procedure 04/14 GreenLight laser prostate, 09/16 GreenLight laser Pathology - BPH, large prostate 200 gm - biopsy negative Previously on finasteride Gross hematuria with urinary tract infection Imaging - 11/12 CT scan large prostate with bladder wall thickening Microbiology - 11/12 Aerococcus urinae - sensitivity per Google search Augmentin PSA 03/14 16, 09/15 11, 03/15 8.4 15%, 08/16 27 Therapeutic plan - continue to follow [facility] Medical History Coagulase negative Staphylococcus bacteremia Hydronephrosis concurrent with and due to calculi of kidney and ureter Bladder stones Myxomatous mitral valve PICC (peripherally inserted central catheter) in place Kidney stones Pyelonephritis MSSA bacteremia Acute kidney injury Ureteral stent present BPH (benign prostatic hyperplasia) Detached retina Hernia Surgical History Status post ablation of incompetent vein using laser (07/25/22) History of cystoscopy History of prostate surgery Hx of varicose vein ligation (~11/2023) History of eye surgery History of umbilical hernia repair Family History Sister Melanoma Social History Household Members: Family Housing: House Are you a primary career manager to a significant other at home: No Do you presently have visiting nurse or other home services: No Alcohol intake: former Comment: medicated with po tylenol Patient Tobacco Use Status: Former Tobacco user Tobacco use type: Cigarette e-Cigarette/Vaping Use: Former Use Second Hand Smoke Exposure: No Advance Directives Date on File: 12/01/22 service: No Current occupational status: employed 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 - [employer] Cognitive needs: No Hearing needs: No Vision needs: Yes Review of Systems Const Denies chills and Denies fever(s) Card Reports no additional complaints and Denies syncope Resp Denies cough GI Denies abdominal pain and Denies heartburn Reports as per HPI and Denies change in libido Neuro Denies syncope Psych Denies change in libido Endo Denies change in libido Physical Exam Const General: cooperative, healthy appearing, comfortable and no acute distress Orientation/consciousness: patient oriented x3 HEENT Face and sinus: Yes normal facial exam Mouth: moist mucous membranes Neck Neck: Yes normal visual inspection, Yes full ROM and Yes trachea midline Chest Chest palpation & inspection: normal inspection of the chest Resp Effort & Inspection: normal respiratory effort, able to speak in complete sentences and no respiratory distress GI Inspection: Yes normal to inspection Back/Spine/Pelvis Cervical Spine: normal cervical lordosis Thoracic/Lumbar Spine: thoracic and lumbar spine normal to inspection Skin General skin exam: no rashes or lesions noted Neuro General: patient oriented x3, gait normal, tone normal and moves all extremities Extrem General: Yes normal to inspection and Yes capillary refill normal Office Procedures Post Void Residual Post Residual Void Post Void Residual (PVR): 112 [id number]-[id number] Void Residual by ultrasound Results AMB Urinalysis, Automated UA Leukoctes 15 David/uL Last Edit by Vianney Pedroza CMA on 10/05/24 08:43 UA Nitrite Negative Last Edit by Vianney Pedroza CMA on 10/05/24 08:43 UA Urobilinogen 0.2 mg/dL Last Edit by Vianney Pedroza CMA on 10/05/24 08:43 UA Protein 30 mg/dL Last Edit by Vianney Pedroza CMA on 10/05/24 08:43 UA pH 5.5 Last Edit by Vianney Pedroza CMA on 10/05/24 08:43 UA Blood 200 Ulysses/uL Last Edit by Vianney Pedroza CMA on 10/05/24 08:43 UA Specific Jasper 1.020 Last Edit by Vianney Pedroza CMA on 10/05/24 08:43 UA Ketone Negative Last Edit by Vianney Pedroza CMA on 10/05/24 08:43 UA Bilirubin 0 mg/dL Last Edit by Vianney Pedroza CMA on 10/05/24 08:43 UA Glucose 0 mg/dL Last Edit by Vianney Pedroza CMA on 10/05/24 08:43 Results Reviewed Results Reviewed: Laboratory Last Values Urine pH (Auto) 5.5 10/05/24 08:37 Specific Jasper (Auto) 1.020 10/05/24 08:37 Urine Protein (Auto) 30 mg/dL 10/05/24 08:37 Glucose (UA)(Auto) 0 mg/dL 10/05/24 08:37 Urine Ketones (Auto) Negative 10/05/24 08:37 Urine Blood (Auto) 200 Ulysses/uL 10/05/24 08:37 Urine Nitrite (Auto) Negative 10/05/24 08:37 Urine Bilirubin (Auto) 0 mg/dL 10/05/24 08:37 Urine Urobilinogen (Auto) 0.2 mg/dL 10/05/24 08:37 Leukocyte Esterase (Auto) 15 David/uL 10/05/24 08:37 Assessment & Plan Assessment & Plan (1) BPH w urinary obs/LUTS: Code(s): N40.1 - Benign prostatic hyperplasia with lower urinary tract symptoms; N13.8 - Other obstructive and reflux uropathy Category: Medical (2) Prostatitis due to Kathleen species: Code(s): B37.49 - Other urogenital candidiasis; N51 - Disorders of male genital organs in diseases classified elsewhere Category: Medical Plan Six-month follow-up check cysto Orders: Orders AMB Urinalysis Automated Today Z13.9 - Encounter for screening, unspecified AMB Post Void Residual by ultrasound Today N40.1 - Benign prostatic hyperplasia with lower urinary tract symptoms, R33.9 - Retention of urine, unspecified Urine Culture Today A49.9 - Bacterial infection, unspecified, N39.0 - Urinary tract infection, site not specified Patient Instructions: This note is constructed using voice recognition software. While every effort has been made to ensure accuracy lens molder errors may have been included. Imaging studies, laboratory and physical exam results were discussed and reviewed in detail. No major barriers to patient understanding were identified. An opportunity to ask questions regarding the treatment plan was provided. All questions were answered. The patient expressed understanding and agreement with the above treatment plan. The patient is aware they should contact our office by phone for worsening of their current condition or the appearance of new urologic symptoms. Compliance is encouraged with any medications and followup testing that is ordered. It is a privilege to participate in the urologic care of your patient. If you have any questions or concerns regarding treatment for the above conditions, or other urologic issues, please do not hesitate to contact me. The office telephone contact is [phone]. Sincerely, Dr Rod Phillips MD, [facility] - Urology Compassionate Specialist Care for the Genitourinary System Coding Level of Care Code Est Pt Level 3 (98451) Diagnoses BPH w urinary obs/LUTS N40.1; N13.8 Prostatitis due to Kathleen species B37.49; N51 CPT Codes Post Residual Void - PVR CPT Code: 12319-Orfg Void Residual by ultrasound ([id number])
== END 2024-10-05 09:06 | disposition home or self-care (01) ==
PROVIDERS: PCP Nurse Practitioner Family; Visit Provider Urology
DX: N40.1 Benign prostatic hyperplasia with lower urinary tract symptoms (principal); N13.8 Other obstructive and reflux uropathy; B37.49 Other urogenital candidiasis; N51 Disorders of male genital organs in diseases classified elsewhere; Z13.9 Encounter for screening, unspecified
CPT/HCPCS: 99213

== ENCOUNTER 2024-10-27 07:15 | Day surgery (SDC) | payer OTHER, SELFPAY ==
[2024-07-29 10:59] VITALS: BMI 23.5
--- NOTE | 2024-08-01 10:26 | P.CONAN_ITS ---
HPI - Anesthesia Eval Consult details Narrative: 69yo M for Colonoscopy [facility] [place] Active Problems Active Problems: All Active Problems Pre-op exam (Acute) Anemia (Acute) Right inguinal hernia (Acute) Low back pain (Acute) Primary osteoarthritis of left hip (Acute) Osteoarthritis (Acute) Osteoarthritis of right knee (Acute) Osteoarthritis of left knee (Acute) Primary osteoarthritis of right hip (Acute) Incomplete emptying of bladder due to benign prostatic hyperplasia (Acute) History of adenomatous polyp of colon (Acute) Coagulase negative Staphylococcus bacteremia (Acute) Bladder stones (Acute) Systolic murmur (Acute) Screening for colon cancer (Acute) Physical exam (Acute) BPH w urinary obs/LUTS (Acute) UTI (urinary tract infection), bacterial (Acute) Gross hematuria (Acute) Varicose vein of leg (Acute) Elevated PSA (Acute) Varicose veins of left lower extremity with inflammation (Acute) Varicose veins of right lower extremity with inflammation (Acute) Acute unilateral obstructive uropathy (Acute) Urinary tract infection (Acute) Blockage of stent of ureter (Acute) Hydronephrosis (Acute) Renal calculus, right (Acute) MSSA bacteremia (Acute) Past Medical History Medical History Coagulase negative Staphylococcus bacteremia Hydronephrosis concurrent with and due to calculi of kidney and ureter Bladder stones Myxomatous mitral valve PICC (peripherally inserted central catheter) in place Kidney stones Pyelonephritis MSSA bacteremia Acute kidney injury Ureteral stent present BPH (benign prostatic hyperplasia) Detached retina Hernia Family History Family History Sister Melanoma Family history of problems with anesthesia: No Surgical History Surgical History Status post ablation of incompetent vein using laser (07/25/22) History of cystoscopy History of prostate surgery Hx of varicose vein ligation (~11/2023) History of eye surgery History of umbilical hernia repair History of Problems with Anesthesia: No Social History Social History Household Members: Family Housing: House Are you a primary patient care technician instructor to a significant other at home: No Do you presently have visiting nurse or other home services: No Alcohol intake: former Comment: medicated with po tylenol Patient Tobacco Use Status: Former Tobacco user Tobacco use type: Cigarette e-Cigarette/Vaping Use: Former Use Second Hand Smoke Exposure: No Advance Directives Date on File: 12/01/22 service: No Current occupational status: employed Current occupation: [employer] Cognitive needs: No Hearing needs: No Vision needs: Yes Meds Allergies Allergy/AdvReac Type Severity Reaction Status Date / Time No Known Allergies Allergy Verified 07/26/24 13:34 Home Medications ?Medication ?Instructions ?Recorded ?Confirmed ?Last Taken ?Type cholecalciferol (vitamin D3) 50 50 mcg PO DAILY 11/29/22 07/27/24 06/03/23 History mcg (2,000 unit) tablet (Vitamin D3) multivitamin 1 tab PO DAILY 11/29/22 07/27/24 06/03/23 History zinc acetate 50 mg (zinc) capsule 50 mg PO DAILY 11/29/22 07/27/24 06/03/23 History Exam Height,Weight and Vital Signs: Height 6 ft 1 in Weight 80.739 kg Pertinent Lab Results Pertinent Lab Results: Laboratory Tests 07/19/24 08:34 WBC 4.9 Hgb 10.0 L Hct 32.9 L Plt Count 307 D Sodium 138 Potassium 4.2 Chloride 106 Carbon Dioxide 24 BUN 28 H Creatinine 1.18 Narrative Narrative: ECHO 2022 Conclusions: - Technically difficult study. - No obvious vegetations or valvular dysfunction based on available images. Findings Left Ventricle Normal left ventricular cavity size. The left ventricular systolic function is normal. The visually estimated ejection fraction is between 60-65%. There is no evidence of regional wall motion abnormalities. Assessment and Plan Assessment Anesthesia Assessment: Chart Reviewed Final Anesthetic Review Family History of Problems with Anesthesia: No History of Problems with Anesthesia: No
--- NOTE | 2024-10-26 08:43 | P.CONAN_ITS ---
Documented by User: Almaz Ojeda NP 10/26/24 08:44 HPI - Anesthesia Eval Consult details Narrative: 69yo M for Colonoscopy Myxomatous mitral valve - no symptoms, nml ECHO 2022, only follows with PCP now [facility] Active Problems Active Problems: All Active Problems Prostatitis due to Kathleen species (Acute) Fungal infection (Acute) Pre-op exam (Acute) Anemia (Acute) Right inguinal hernia (Acute) Low back pain (Acute) Primary osteoarthritis of left hip (Acute) Osteoarthritis (Acute) Osteoarthritis of right knee (Acute) Osteoarthritis of left knee (Acute) Primary osteoarthritis of right hip (Acute) Incomplete emptying of bladder due to benign prostatic hyperplasia (Acute) History of adenomatous polyp of colon (Acute) Coagulase negative Staphylococcus bacteremia (Acute) Bladder stones (Acute) Systolic murmur (Acute) Screening for colon cancer (Acute) Physical exam (Acute) BPH w urinary obs/LUTS (Acute) UTI (urinary tract infection), bacterial (Acute) Gross hematuria (Acute) Varicose vein of leg (Acute) Elevated PSA (Acute) Varicose veins of left lower extremity with inflammation (Acute) Varicose veins of right lower extremity with inflammation (Acute) Acute unilateral obstructive uropathy (Acute) Urinary tract infection (Acute) Blockage of stent of ureter (Acute) Hydronephrosis (Acute) Renal calculus, right (Acute) MSSA bacteremia (Acute) Past Medical History Medical History Coagulase negative Staphylococcus bacteremia Hydronephrosis concurrent with and due to calculi of kidney and ureter Bladder stones Myxomatous mitral valve PICC (peripherally inserted central catheter) in place Kidney stones Pyelonephritis MSSA bacteremia Acute kidney injury Ureteral stent present BPH (benign prostatic hyperplasia) Detached retina Hernia Family History Family History Sister Melanoma Family history of problems with anesthesia: No Surgical History Surgical History Status post ablation of incompetent vein using laser (07/25/22) History of cystoscopy History of prostate surgery Hx of varicose vein ligation (~11/2023) History of eye surgery History of umbilical hernia repair History of Problems with Anesthesia: No Social History Social History Household Members: Family Housing: House Are you a primary animal care specialist to a significant other at home: No Do you presently have visiting nurse or other home services: No Alcohol intake: former Comment: medicated with po tylenol Patient Tobacco Use Status: Former Tobacco user Tobacco use type: Cigarette e-Cigarette/Vaping Use: Former Use Second Hand Smoke Exposure: No Use of substances other than those prescribed or required for medical reasons: No Have you been hit, kicked, punched, or otherwise hurt by someone within the past year? If so, by whom?: No Are you DNR?: No Advance Directives: No Advance Directives Information Provided: Yes Advance Directives Date on File: 12/01/22 Recently lost weight without trying: No service: No Current occupational status: employed Current occupation: [employer] Cognitive needs: No Hearing needs: No Vision needs: Yes Meds Allergies Allergy/AdvReac Type Severity Reaction Status Date / Time No Known Allergies Allergy Verified 10/05/24 08:36 Home Medications ?Medication ?Instructions ?Recorded ?Confirmed ?Last Taken ?Type cholecalciferol (vitamin D3) 50 50 mcg PO DAILY 11/29/22 07/27/24 06/03/23 History mcg (2,000 unit) tablet (Vitamin D3) multivitamin 1 tab PO DAILY 11/29/22 07/27/24 06/03/23 History zinc acetate 50 mg (zinc) capsule 50 mg PO DAILY 11/29/22 07/27/24 06/03/23 History Exam Height,Weight and Vital Signs: Height 6 ft 1 in Weight 80.739 kg Narrative Narrative: ECHO 2022 Conclusions: - Technically difficult study. - No obvious vegetations or valvular dysfunction based on available images. Assessment and Plan Assessment Anesthesia Assessment: Chart Reviewed Final Anesthetic Review Family History of Problems with Anesthesia: No History of Problems with Anesthesia: No Documented by User: Denisa Smith MD 10/27/24 08:49 [facility] Past Medical History Medical History Coagulase negative Staphylococcus bacteremia Hydronephrosis concurrent with and due to calculi of kidney and ureter Bladder stones Myxomatous mitral valve PICC (peripherally inserted central catheter) in place Kidney stones Pyelonephritis MSSA bacteremia Acute kidney injury Ureteral stent present BPH (benign prostatic hyperplasia) Detached retina Hernia Family History Family History Sister Melanoma Surgical History Surgical History Status post ablation of incompetent vein using laser (07/25/22) History of cystoscopy History of prostate surgery Hx of varicose vein ligation (~11/2023) History of eye surgery History of umbilical hernia repair Social History Social History Household Members: Family Housing: House Are you a primary animal care specialist to a significant other at home: No Do you presently have visiting nurse or other home services: No Alcohol intake: former Comment: medicated with po tylenol Patient Tobacco Use Status: Former Tobacco user Tobacco use type: Cigarette e-Cigarette/Vaping Use: Former Use Second Hand Smoke Exposure: No Use of substances other than those prescribed or required for medical reasons: No Have you been hit, kicked, punched, or otherwise hurt by someone within the past year? 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 - [employer] Cognitive needs: No Hearing needs: No Vision needs: Yes Meds Allergies Allergy/AdvReac Type Severity Reaction Status Date / Time No Known Allergies Allergy Verified 10/05/24 08:36 Home Medications ?Medication ?Instructions ?Recorded ?Confirmed ?Last Taken ?Type cholecalciferol (vitamin D3) 50 50 mcg PO DAILY 11/29/22 07/27/24 06/03/23 History mcg (2,000 unit) tablet (Vitamin D3) multivitamin 1 tab PO DAILY 11/29/22 07/27/24 06/03/23 History zinc acetate 50 mg (zinc) capsule 50 mg PO DAILY 11/29/22 07/27/24 06/03/23 History Exam Airway Mallampati Class: II TM Dist: >3cm Neck ROM: Full Heart: rrr Lungs: cta Assessment and Plan Assessment Anesthesia Assessment: Anesthesia Plan Discussed Final Anesthetic Review NPO: Yes ASA Class: III Final Preanesthetic Review: No Changes in Pt Med Stat, Meds/Allgs Chart Reviewed, Consent Obtained/Reviewed and Anes Risks/Benef Reviewed Patient Risk: Intermediate Procedure Risk: Intermediate Anesthetic Plan Anesthetic Plan: MAC: Disposition: Standard PACU
[2024-10-27 08:04] VITALS: BP 116/80; PULSE 95; RESP 16; TEMP 36.8; O2SAT 96
--- NOTE | 2024-10-27 08:09 | MHC.SHP ---
Pre-Procedural Eval Section A - 24 Hr Update-Section A only Date of Service: 10/27/24 Section B - Complete if H&P > 30 days Chief Complaint: Personal history of colonic polyps Details of Present Illness: PMH: Bladder stones Kidney stones History of bacteremia History of polyps PSH: History of cystoscopy History of prostate surgery Hx of varicose vein ligation History of eye surgery History of umbilical hernia repair Present Medications: see Short Stay Collaborative assessment Allergies: Allergies Allergy/AdvReac Type Severity Reaction Status Date / Time No Known Allergies Allergy Verified 10/05/24 08:36 Review of Systems Review of Systems Comment: 10 point ROS negative Exam Exam Comment: Gen appear: No acute distress HEENT: no icterus Chest: No overt resp distress Abd: soft, nontender, nondistended Psych: Stable affect, answering questions appropriately Neuro: A/Ox3 noted to move all extremities spontaneously Ext: no peripheral edema Plan Diagnosis/Plan: Unchanged I have reviewed the history and physical and performed a pertinent physical examination on my patient. No changes have occurred unless specified. Time Spent With Patient Time: Total time managing care of this patient today ____ minutes.
[2024-10-27] MEDS: Lactated Ringers 1,000 ML 100 ML IVCONT (08:15)
--- NOTE | 2024-10-27 09:41 | P.OPN-COLO_ITS ---
Colonoscopy Operative Note Operative Note Date of Service: 10/27/24 Narrative: Procedure: Colonoscopy Indication: Personal history of polyps Endoscopist: Zoey Pearson MD Anesthesia Provider: Dr Anitra Barrow Anesthesia type: MAC Instrument: Olympus [id number] , [id number] Consent: Indication, risks vs benefits, and alternatives were discussed with the patient who gave written informed consent to proceed. EKG, pulse, pulse oximetry and blood pressure were monitored throughout the procedure. Please see anesthesia flowsheet. Procedure: The patient was brought to the procedure room and placed in the left lateral decubitus position. IV medications were administered by the anesthesia provider in attendance. A digital rectal exam was performed which was normal. A distal attachment cap was affixed to the tip of the colonoscope which was then inserted through the anus and advanced through the colon to the hepatic flexure. Due to excessive looping here despite abd pressure, scope was changed to adult scope. It was then advanced to cecum at 100 cm. Appendiceal orifice and ileocecal valve were identified. Mucosa was carefully examined under high definition white light as the instrument was slowly withdrawn in a retrograde panoramic fashion. Retroflexion was performed in rectum. The procedure was somewhat difficult and required adult scope and abd pressure to get around the hepatic flexure. There were no immediate obvious complications. The quality of the prep was BBPS: 3+2+3 = adequate Withdrawal time 11 minutes. Limitations: No limitations. Findings: Mucosa: Normal to cecum. Protruding lesions: * 1 sessile polyp of size 6 mm in ascending colon. Cold snare polypectomy was performed. The polyp was completely removed and retrieved. * 1 sessile polyp of size 5 mm in transverse colon. Cold snare polypectomy was performed. The polyp was completely removed and retrieved. * 2 sessile polyp of size 3-5 mm in descending colon. Cold snare polypectomy was performed. The polyp was completely removed and retrieved. * 1 semi-pedunculated polyp of size 8 mm in rectum. Cold snare polypectomy was performed. The polyp was completely removed and retrieved. * Medium internal hemorrhoids without stigmata of recent bleeding. Impression: 1. Normal colon mucosa 2. Total of 5 polyps removed 3. Internal hemorrhoids Recommendations: - Follow path results. - Repeat colonoscopy in 3 years if at least 3 polyps are adenomas. - Recommend starting with adult scope, consider abd binder for future colo.
[2024-10-27 09:44] VITALS: BP 109/73; PULSE 92; RESP 18; TEMP 36.1; O2SAT 96
[2024-10-27 09:59] VITALS: BP 113/75; PULSE 78; RESP 18; TEMP 36.1; O2SAT 97
== END 2024-10-27 10:19 | disposition home or self-care (01) ==
PROVIDERS: PCP Nurse Practitioner Family; Visit Provider Internal Medicine
PROC: 0DJD8ZZ Inspection of Lower Intestinal Tract, Via Natural or Artificial Opening Endoscopic (ICD-10-PCS; CPT 45378; principal; 2024-10-27 08:50)
DX: Z12.11 Encounter for screening for malignant neoplasm of colon (principal); D12.2 Benign neoplasm of ascending colon; D12.3 Benign neoplasm of transverse colon; D12.4 Benign neoplasm of descending colon; D12.8 Benign neoplasm of rectum; K64.8 Other hemorrhoids; Z86.0101 Personal history of adenomatous and serrated colon polyps; Z87.442 Personal history of urinary calculi; Z79.899 Other long term (current) drug therapy; Z87.891 Personal history of nicotine dependence
CPT/HCPCS: 45385; 88305; J2003; J2405; J2704

== ENCOUNTER → 2024-10-27 07:15 | Outpatient (BNV) | payer OTHER, SELFPAY | PROVIDERS: PCP Nurse Practitioner Family; Visit Provider Internal Medicine | DX: Z12.11 Encounter for screening for malignant neoplasm of colon (principal); Z86.0100 Personal history of colon polyps, unspecified; D12.8 Benign neoplasm of rectum; D12.3 Benign neoplasm of transverse colon | CPT/HCPCS: 45385 ==

== ENCOUNTER 2024-11-10 11:23 | Outpatient (REF) | payer OTHER, SELFPAY ==
--- NOTE | ~2024-11-10 | XR_ITS ---
EXAMINATION: XR PELVIS 1-2 VIEWS HISTORY: M25.559 - Pain in unspecified hip COMPARISON: Comparison is made with the prior examination dated 12/17/2023. FINDINGS: Two AP views of the pelvis are submitted. Osseous mineralization is normal. There is no fracture or dislocation. Again seen is severe osteoarthritis of the right hip with joint space narrowing, osteophyte formation, and remodeling of the femoral head. There is mild to moderate osteoarthritis of the left hip. The soft tissues are unremarkable. XR/XR pelvis 1-2V IMPRESSION: Osteoarthritis of the bilateral hips as described. Electronically signed by: Chetan Howard MD 11/11/2024 11:48 AM EDT
== END 2024-11-10 11:24 | disposition home or self-care (01) ==
LOC: HO.HOSX 11:23
PROVIDERS: Visit Provider Orthopaedic Surgery
DX: M16.11 Unilateral primary osteoarthritis, right hip (principal)
CPT/HCPCS: 72170

== ENCOUNTER 2024-11-10 14:47 | Outpatient (AMB) | payer OTHER, SELFPAY ==
--- NOTE | 2024-11-10 15:03 | MHC.OFFVIS ---
Intake Visit Reasons: OV-Primary OA of right hip-discuss surgery? Intake Note: Sancho is a 69 year old male who presents today for a follow up of his Right Hip OA At his last visit we discuss surgical and non surgical treatment options. Patient opted to complete exercises. Today he would like to discuss Surgical intervention. STates since his last visit he tried PRP with pain management and did not make any difference. States he would like to move forward with surgery. Allergies No Known Allergies Allergy (Verified 11/10/24 15:06) HPI HPI OV-Primary OA of right hip-discuss surgery?: Details: Sancho is a 69 year old male who presents today for a follow up of his Right Hip OA At his last visit we discuss surgical and non surgical treatment options. Patient opted to complete exercises. Today he would like to discuss Surgical intervention. Sates since his last visit he tried PRP with pain management and did not make any difference. States he would like to move forward with surgery. He is limited in almost all activities. I saw him about a year ago and he wanted to try non operative management. He describes groin pain with walking. Difficulty with recreational activity. He decribes anterior hip and groin pain. [facility] Medical History (Updated 11/14/24 @ 13:04 by Macey Edwards RN) Coagulase negative Staphylococcus bacteremia Hydronephrosis concurrent with and due to calculi of kidney and ureter Myxomatous mitral valve Kidney stones Pyelonephritis MSSA bacteremia Bladder stones Acute kidney injury Ureteral stent present BPH (benign prostatic hyperplasia) Detached retina Hernia Surgical History (Updated 11/14/24 @ 13:08 by Macey Edwards RN) H/O colonoscopy Status post ablation of incompetent vein using laser (07/25/22) History of cystoscopy History of prostate surgery Hx of varicose vein ligation (~11/2023) History of eye surgery History of umbilical hernia repair Family History Sister Melanoma Social History Household Members: Family Housing: House Are you a primary career portals teacher to a significant other at home: No Do you presently have visiting nurse or other home services: No Alcohol intake: former Comment: medicated with po tylenol Patient Tobacco Use Status: Former Tobacco user Tobacco use type: Cigarette e-Cigarette/Vaping Use: Former Use Second Hand Smoke Exposure: No Advance Directives Date on File: 12/01/22 service: No Current occupational status: employed 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 Results Reviewed Results Reviewed: I personally reviewed relevant radiographs. Two AP views of the pelvis are submitted. Osseous mineralization is normal. There is no fracture or dislocation. Again seen is severe osteoarthritis of the right hip with joint space narrowing, osteophyte formation, and remodeling of the femoral head. Assessment & Plan Assessment & Plan (1) Primary osteoarthritis of right hip: Code(s): M16.11 - Unilateral primary osteoarthritis, right hip Category: Medical Plan: This is a healthy 69 yo with severe right hip OA. He has failed injections and non op management. I recommend right hip arthroplasty. I discussed this with him. I discussed the risks benefits and alternatives including but not limited to the risk of pain, infection, stiffness, need for further surgery as well as potential medical complications such as blood clots, pulmonary embolism and cardiac complications. He would like to begin the pre operative clearance process. He is a good candidate for surgery. Orders: Orders XR pelvis 1-2V 11/10/24 M25.559 - Pain in unspecified hip Coding Level of Care Code Est Pt Level 4 (31696) Diagnoses Primary osteoarthritis of right hip M16.11
== END 2024-11-10 15:39 | disposition home or self-care (01) ==
LOC: HO.HOS 14:48
PROVIDERS: PCP Nurse Practitioner Family; Visit Provider Orthopaedic Surgery
DX: M16.11 Unilateral primary osteoarthritis, right hip (principal)
CPT/HCPCS: 99214

== ENCOUNTER → 2024-11-10 14:47 | Outpatient (BNV) | payer OTHER, SELFPAY | PROVIDERS: Visit Provider Radiology Diagnostic Radiology | DX: M25.551 Pain in right hip (principal); M25.552 Pain in left hip | CPT/HCPCS: 72170 ==

== ENCOUNTER 2024-11-16 05:59 | Day surgery (SDC) | payer OTHER, SELFPAY ==
[2024-11-14 13:10] VITALS: BMI 25.6
[2024-11-16] VITALS (9 sets, daily range): BP systolic 125–133; BP diastolic 70–78; PULSE 59–74; RESP 16–17; TEMP 36.1–36.3; O2SAT 93–97; BMI 25.9
[2024-11-16] MEDS: Lactated Ringers 1,000 ML 100 ML IVCONT (06:30)
--- NOTE | 2024-11-16 07:31 | MHC.SHP ---
Pre-Procedural Eval Section A - 24 Hr Update-Section A only Date of Service: 11/16/24 The patient is an INPATIENT: No Changes since office visit: Yes Patient answered all questions; No Cold of Flu in the past 2 weeks, No New Medical Problems and No Changes in Medication The patient has been examined within 24 hours of the surgical procedure. The History & Physical has been completed within 30 days and I have reviewed it.: No Section B - Complete if H&P > 30 days Chief Complaint: Unilateral inguinal hernia, without obstruction or Details of Present Illness: no change in symptoms Relevant Family History (Specify if Yes): No Relevant Social History: None Present Medications: see Short Stay Collaborative assessment Medical History: No relevant PMH History of Previous Operations: No relevant previous surgery Allergies: Allergies Allergy/AdvReac Type Severity Reaction Status Date / Time No Known Allergies Allergy Verified 11/10/24 15:06 Review of Systems Sugical H&P ROS: Negative: Constitution, Cardiovascular, Respiratory, Neurological, Psychiatric, Hem-Onc, Allergic/Immunologic, Gastrointestinal, Genitourinary, Musculoskeletal, Integumentary, Endocrine and Eyes/Ears/Nose/Throat Exam Surgical H&P Exam: Normal: HEENT, Normal: Heart, Normal: Lungs, Normal: Extremities, Normal: Abdomen, Normal: Skin and Normal: Neurological Plan Diagnosis/Plan: Unchanged I have reviewed the history and physical and performed a pertinent physical examination on my patient. No changes have occurred unless specified. Time Spent With Patient Time: Total time managing care of this patient today ____ minutes.
--- NOTE | 2024-11-16 08:27 | P.OP_ITS ---
Operative Note Operative Note Date of Service: 11/16/24 Narrative: Preoperative diagnosis: Right inguinal hernia, reducible Postoperative diagnosis: Same Procedure: Repair of right inguinal hernia with mesh Surgeon: Clyde Sandy MD Brass Buffer: Justina Irvin PA-C; ROHIT Enamorado Anesthesia: General LMA Indications for procedure: 69-year-old male patient with a prior history of a left inguinal hernia previously repaired now presenting with a new lump in the r ight groin. The lump seems increase in size with lifting and is now causing some discomfort. On examination the hernias reducible with light pressure. Operative findings: Large indirect right inguinal hernia with lipoma of the cord Specimen: Lipoma of the cord, right inguinal hernia sac Estimated blood loss: Less than 2 mL Complications: None Procedure details: Patient was brought to the OR and placed in a supine position. After administering general anesthesia the patient's abdomen was prepped with ChloraPrep and draped in a sterile fashion. A surgical time-out was called the consent confirmed. Patient received preoperative antibiotics and Venodyne boots were in place. Local anesthesia was infiltrated over the right inguinal ligament. Incision was then made with a scalpel and carried out through subcutaneous tissue, past Sebastian's fashion up to the external oblique aponeurosis. Additional local was infiltrated below the external oblique aponeurosis. This was then incised with a scalpel and widened with the Metzenbaum scissors. The spermatic cord was then dissected free from the surrounding inguinal canal and retracted using a Raton drain. The floor of the inguinal canal was found to be intact without hernia. The spermatic cord was found to be widened consistent with a indirect hernia. Fibers of the cremaster muscle were then and a large lipoma removed. This was ligated at its base and sent as a specimen. Hernia sac was noted adjacent to this. This was dissected down to the internal ring. The sac was opened and the contents reduced. The sac was ligated at its base using a 0 Polysorb suture. The sac was then excised and sent to pathology for further examination. Fibers of the internal oblique and transversalis were divided between Allis clamps. The preperitoneal space was then entered and widened with a open Ray- Andre sponge. A large PHS mesh was then obtained. The circular underlay was deployed within the preperitoneal space. The overlay was then secured to the pubic tubercle, conjoined tendon and shelving edge of the inguinal ligament using 0 Polysorb suture. A slit was made in the mesh in the mesh wrapped around the spermatic cord at the internal ring. This was secured to the shelving edge using the 0 Polysorb suture. This was tight enough to allow the passage of just the tip of the index finger. The remaining mesh laterally was placed below the external oblique aponeurosis. Wounds were then irrigated with saline solution and suctioned dry. External oblique was then closed using a running 2-0 Polysorb suture. 8 mL of Zenrelef was then infiltrated below the external oblique aponeurosis. Sebastian's fascia and dermis were then reapproximated using interrupted 3-0 Polysorb sutures. Skin was closed using a running subcuticular 4-0 Polysorb suture. Steri-Strips, 4 x 4 gauze and Tegaderm were then applied. The patient tolerated the procedure well. Sponge, instrument, and needle counts reported as correct. The patient was transferred to PACU in stable condition.
--- NOTE | 2024-11-16 09:20 | HO.ANESPROP2 ---
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 (Acute) Fungal infection (Acute) Pre-op exam (Acute) Anemia (Acute) Right inguinal hernia (Acute) Low back pain (Acute) Primary osteoarthritis of left hip (Acute) Osteoarthritis (Acute) Osteoarthritis of right knee (Acute) Osteoarthritis of left knee (Acute) Primary osteoarthritis of right hip (Acute) Incomplete emptying of bladder due to benign prostatic hyperplasia (Acute) History of adenomatous polyp of colon (Acute) Systolic murmur (Acute) Screening for colon cancer (Acute) Physical exam (Acute) Renal calculus, right (Acute) Hydronephrosis (Acute) Blockage of stent of ureter (Acute) Urinary tract infection (Acute) Acute unilateral obstructive uropathy (Acute) Varicose veins of right lower extremity with inflammation (Acute) Varicose veins of left lower extremity with inflammation (Acute) Elevated PSA (Acute) Varicose vein of leg (Acute) Gross hematuria (Acute) UTI (urinary tract infection), bacterial (Acute) BPH w urinary obs/LUTS (Acute) Coagulase negative Staphylococcus bacteremia (Acute) Bladder stones (Acute) MSSA bacteremia (Acute) Past Medical History Medical History Coagulase negative Staphylococcus bacteremia Hydronephrosis concurrent with and due to calculi of kidney and ureter Myxomatous mitral valve Kidney stones Pyelonephritis MSSA bacteremia Bladder stones Acute kidney injury Ureteral stent present BPH (benign prostatic hyperplasia) Detached retina Hernia Family History Family History Sister Melanoma Family history of problems with anesthesia: No Surgical History Surgical History H/O colonoscopy Status post ablation of incompetent vein using laser (07/25/22) History of cystoscopy History of prostate surgery Hx of varicose vein ligation (~11/2023) History of eye surgery History of umbilical hernia repair History of Problems with Anesthesia: No Social History Social History Household Members: Family Housing: House Are you a primary direct support professional caregiver to a significant other at home: No Do you presently have visiting nurse or other home services: No Alcohol intake: former Comment: medicated with po tylenol Patient Tobacco Use Status: Former Tobacco user Tobacco use type: Cigarette e-Cigarette/Vaping Use: Former Use Second Hand Smoke Exposure: No Use of substances other than those prescribed or required for medical reasons: No Advance Directives: No Advance Directives Information Provided: Yes Advance Directives Date on File: 12/01/22 Recently lost weight without trying: No Nutrition Risks: No Nutritional Risk Poor oral hygiene: No service: No Current occupational status: employed Current occupation: [employer] Cognitive needs: No Hearing needs: No Vision needs: Yes Meds Allergies Allergy/AdvReac Type Severity Reaction Status Date / Time No Known Allergies Allergy Verified 11/10/24 15:06 Active Medications: Current Medications Lactated Ringer's (Lr) 1,000 mls @ 100 mls/hr IVCONT .Q10H PERNELL Last Admin: 11/16/24 06:30 Dose: 100 mls/hr Home Medications ?Medication ?Instructions ?Recorded ?Confirmed ?Last Taken ?Type cholecalciferol (vitamin D3) 50 50 mcg PO DAILY 11/29/22 11/14/24 06/03/23 History mcg (2,000 unit) tablet (Vitamin D3) multivitamin 1 tab PO DAILY 11/29/22 11/14/24 06/03/23 History zinc acetate 50 mg (zinc) capsule 50 mg PO DAILY 11/29/22 11/14/24 06/03/23 History Exam Height,Weight and Vital Signs: Height 6 ft 1 in Weight 89.2 kg Last Vital Signs Temp 97.1 F 11/16/24 08:37 Pulse 59 11/16/24 09:05 Resp 16 11/16/24 09:05 BP 125/74 11/16/24 09:05 Pulse Ox 95 11/16/24 09:05 O2 Del Method Room Air 11/16/24 09:05 O2 Flow Rate 6 11/16/24 08:37 Airway Mallampati Class: II TM Dist: >3cm Neck ROM: Full Heart: rrr Lungs: cta Assessment and Plan Assessment Anesthesia Assessment: Anesthesia Plan Discussed and Chart Reviewed Final Anesthetic Review Family History of Problems with Anesthesia: No History of Problems with Anesthesia: No NPO: Yes ASA Class: II Final Preanesthetic Review: No Changes in Pt Med Stat, Meds/Allgs Chart Reviewed, Consent Obtained/Reviewed and Anes Risks/Benef Reviewed Patient Risk: Low Procedure Risk: Low Anesthetic Plan Anesthetic Plan: GA Disposition: Standard PACU
== END 2024-11-16 10:16 | disposition home or self-care (01) ==
PROVIDERS: PCP Nurse Practitioner Family; Visit Provider Surgery
PROC: (CPT 49505; principal; 2024-11-16 07:30)
DX: K40.90 Unilateral inguinal hernia, without obstruction or gangrene, not specified as recurrent (principal); D17.6 Benign lipomatous neoplasm of spermatic cord; N40.0 Benign prostatic hyperplasia without lower urinary tract symptoms; Z79.899 Other long term (current) drug therapy; Z98.890 Other specified postprocedural states; Z87.891 Personal history of nicotine dependence
CPT/HCPCS: 49505; 88302; 88304; C1781; C9088; J0131; J0690; J1100; J2003; J2405; J2704; J2795; J3010

== ENCOUNTER → 2024-11-16 05:59 | Outpatient (BNV) | payer OTHER, SELFPAY | PROVIDERS: PCP Nurse Practitioner Family; Visit Provider Surgery | DX: K40.90 Unilateral inguinal hernia, without obstruction or gangrene, not specified as recurrent (principal) | CPT/HCPCS: 49505 ==

== ENCOUNTER 2024-11-24 08:52 | Outpatient (AMB) | payer OTHER, SELFPAY ==
--- NOTE | 2024-11-24 09:14 | MHC.OFFVIS ---
Intake Visit Reasons: cysto Intake Note: Patient is present for Cystoscopy Urology Medication:NONE Antibiotic Allergy:NONE Blood Thinner:NONE Lot:[id number] Exp:12/30/26 Business Development Recruiter Required: No Allergies No Known Allergies Allergy (Verified 11/24/24 09:15) HPI Comments Details: Sancho is a pleasant male. He is a patient of Dr. Davis. He seen for the following urologic conditions - BPH - gross hematuria - urinary tract infection Follow-up after therapy UA today 3+ blood Still seeing occasional blood Will plan on urine culture today and check cysto in 6 weeks Is having gradual improvement Fungal prostatitis Kathleen albicans on Microgen- 08/16 Literature reviewed recommendation for 400 mg fluconazole daily for 4 weeks Jose Jean E.J. Prostatitis Due to Kathleen albicans. Infectious Diseases in Clinical Practice 14(4): [id number] Nephrolithiasis Right renal stone secondary to stent fragment 07/16 PCN required Imaging - 07/17 renal ultrasound 5 mm Lower urinary tract symptoms Nocturia resolved and better emptying following procedure 04/14 GreenLight laser prostate, 09/16 GreenLight laser Pathology - BPH, large prostate 200 gm - biopsy negative Previously on finasteride Gross hematuria with urinary tract infection Imaging - 11/12 CT scan large prostate with bladder wall thickening Microbiology - 11/12 Aerococcus urinae - sensitivity per Google search Augmentin PSA 03/14 16, 09/15 11, 03/15 8.4 15%, 08/16 27 Therapeutic plan - continue to follow [facility] Medical History Coagulase negative Staphylococcus bacteremia Hydronephrosis concurrent with and due to calculi of kidney and ureter Myxomatous mitral valve Kidney stones Pyelonephritis MSSA bacteremia Bladder stones Acute kidney injury Ureteral stent present BPH (benign prostatic hyperplasia) Detached retina Hernia Surgical History (Updated 11/23/24 @ 15:39 by HANNA Lopez) Hx of right inguinal hernia repair (11/16/24) H/O colonoscopy Status post ablation of incompetent vein using laser (07/25/22) History of cystoscopy History of prostate surgery Hx of varicose vein ligation (~11/2023) History of eye surgery History of umbilical hernia repair Family History Sister Melanoma Social History Household Members: Family Housing: House Are you a primary intensive care anaesthetist to a significant other at home: No Do you presently have visiting nurse or other home services: No Alcohol intake: former Comment: medicated with po tylenol Patient Tobacco Use Status: Former Tobacco user Tobacco use type: Cigarette e-Cigarette/Vaping Use: Former Use Second Hand Smoke Exposure: No Advance Directives Date on File: 12/01/22 service: No Current occupational status: employed Current occupation: [employer] Cognitive needs: No Hearing needs: No Vision needs: Yes Results AMB Urinalysis, Automated UA Leukoctes 500 David/uL Last Edit by FABIAN Kumar on 11/24/24 09:24 UA Nitrite Positive Last Edit by FABIAN Kumar on 11/24/24 09:24 UA Urobilinogen 2 mg/dL Last Edit by FABIAN Kumar on 11/24/24 09:24 UA Protein 300 mg/dL Last Edit by FABIAN Kumar on 11/24/24 09:24 UA pH 6.5 Last Edit by FABIAN Kumar on 11/24/24 09:24 UA Blood 200 Ulysses/uL Last Edit by FABIAN Kumar on 11/24/24 09:24 UA Specific [place] 1.025 Last Edit by FABIAN Kumar on 11/24/24 09:24 UA Ketone Positive Last Edit by FABIAN Kumar on 11/24/24 09:24 UA Bilirubin 1 mg/dL Last Edit by FABIAN Kumar on 11/24/24 09:24 UA Glucose 0 mg/dL Last Edit by FABIAN Kumar on 11/24/24 09:24 Assessment & Plan Assessment & Plan Orders: Orders Urine Culture Today N39.0 - Urinary tract infection, site not specified Urine Cytology Today N39.0 - Urinary tract infection, site not specified AMB Urinalysis Automated Today Z13.9 - Encounter for screening, unspecified Medications: New sulfamethoxazole-trimethoprim 800-160 mg (Bactrim DS) 1 tab PO BID 7 days 14 tabs 0RF N30.00 - Acute cystitis without hematuria Coding
== END 2024-11-24 09:25 | disposition home or self-care (01) ==
LOC: HO.HUSH 08:53
PROVIDERS: PCP Nurse Practitioner Family; Visit Provider Urology
DX: Z13.9 Encounter for screening, unspecified (principal)

== ENCOUNTER 2024-11-24 08:52 | Outpatient (REF) | payer OTHER, SELFPAY ==
[2024-11-24 17:11] LABS: Urine Cytology See Pathology rpt
== END 2024-11-24 08:53 | disposition home or self-care (01) ==
LOC: HO.LAB 08:52
PROVIDERS: PCP Nurse Practitioner Family; Visit Provider Urology
DX: N39.0 Urinary tract infection, site not specified (principal); R82.998 Other abnormal findings in urine
CPT/HCPCS: 81003; 87086; 88112

== ENCOUNTER 2024-11-25 09:27 | Outpatient (AMB) | payer OTHER, SELFPAY ==
--- NOTE | 2024-11-25 09:33 | A.OFFVIS_ITS ---
Vital Signs 11/25/24 09:40 Height 6 ft 1 in Weight 194 lb BMI 25.6 BP 138/82 Blood Pressure Location Lt brachial Position Sitting Pulse 86 Intake Visit Reasons: S/P RIH w/mesh Intake Note: Patient is seen in office for post op assessment post right inguinal hernia repair. Pt c/o: denies any concerns regarding the surgery, healing as expected surgery:11/16/24 Professional Healthcare Representative Required: No Accompanied by: Self / Same As Patient Allergies No Known Allergies Allergy (Verified 11/25/24 09:40) Medication List - Last Reconciled 11/25/24 by Clyde Sandy MD cholecalciferol (vitamin D3) (Vitamin D3) 50 mcg PO DAILY multivitamin 1 tab PO DAILY sulfamethoxazole-trimethoprim 800-160 mg (Bactrim DS) 1 tab PO BID 7 days zinc acetate 50 mg PO DAILY HPI Comments Details: 69-year-old male patient returning 1 week following repair of a right inguinal hernia with mesh on 11/16/2024. And generally feels well and denies any ongoing issues. He stopped taking the pain medication several days ago. He has some bruising in the incision but otherwise denies any bleeding or discharge. [facility] Medical History Coagulase negative Staphylococcus bacteremia Hydronephrosis concurrent with and due to calculi of kidney and ureter Myxomatous mitral valve Kidney stones Pyelonephritis MSSA bacteremia Bladder stones Acute kidney injury Ureteral stent present BPH (benign prostatic hyperplasia) Detached retina Hernia Surgical History Hx of right inguinal hernia repair (11/16/24) H/O colonoscopy Status post ablation of incompetent vein using laser (07/25/22) History of cystoscopy History of prostate surgery Hx of varicose vein ligation (~11/2023) History of eye surgery History of umbilical hernia repair Family History Sister Melanoma Social History Household Members: Family Housing: House Are you a primary college and career counselor to a significant other at home: No Do you presently have visiting nurse or other home services: No Alcohol intake: former Comment: medicated with po tylenol Patient Tobacco Use Status: Former Tobacco user Tobacco use type: Cigarette e-Cigarette/Vaping Use: Former Use Second Hand Smoke Exposure: No Advance Directives Date on File: 12/01/22 service: No Current occupational status: employed 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 Cognitive needs: No Hearing needs: No Vision needs: Yes Physical Exam Const General: no acute distress Nutritional Appearance: well nourished Orientation/consciousness: patient oriented x3 Limitations: no limitations Resp Effort & Inspection: normal respiratory effort GI Other: Incision in the right groin is clean, dry, and intact with intact Steri-Strips. No hematoma or seroma is identified. There is a small amount of ecchymosis noted below the incision. No hernia noted with Valsalva maneuvers. Neuro General: patient oriented x3 Extrem Other: No edema Assessment & Plan Assessment & Plan (1) Right inguinal hernia: Code(s): K40.90 - Unilateral inguinal hernia, without obstruction or gangrene, not specified as recurrent Category: Medical Plan 69-year-old male patient returning 1 week following repair of a right inguinal hernia repair with mesh. He tolerated the procedure well the wounds are healing nicely. He should continue to avoid lifting greater than 10 lb and return approximately 4 weeks for follow-up examination. Coding Level of Care Code Global (09809) Diagnoses Right inguinal hernia K40.90
[2024-11-25 09:40] VITALS: BP 138/82; PULSE 86; BMI 25.6
== END 2024-11-25 09:44 | disposition home or self-care (01) ==
LOC: HO.HGS 09:27
PROVIDERS: PCP Nurse Practitioner Family; Visit Provider Surgery
DX: K40.90 Unilateral inguinal hernia, without obstruction or gangrene, not specified as recurrent (principal)
CPT/HCPCS: 99024

== ENCOUNTER 2024-12-22 12:26 | Outpatient (REF) | payer OTHER, SELFPAY ==
[2024-12-22 16:06] LABS: MANUAL DIFF FLAG NO
[2024-12-22 16:18] LABS: Basophils Absolute Auto 0.1 X10*3/uL (0.0-0.2); Basophils Percent Auto 1.2 % (0-2); Eosinophils Absolute Auto 0.2 X10*3/uL (0.0-0.4); Eosinophils Percent Auto 2.4 % (0-4); Hematocrit 36.5 % (42.0-52.0); Hemoglobin 11.4 g/dl (14.0-18.0); Imm Gran Abs Auto 0.01 X10*3/uL (0.00-0.03); Imm Gran Pct Auto 0.2 % (0.0-0.4); Lymphocytes Absolute Auto 2.1 X10*3/uL (1.2-4.9); Lymphocytes Percent Auto 31.9 % (20-40); Mean Corpuscular HGB Conc 31.2 g/dl (31.0-36.0); Mean Corpuscular Hemoglobin 24.7 pg (27.0-33.0); Monocytes Absolute Auto 0.7 X10*3/uL (0.1-1.2); Monocytes Percent Auto 9.8 % (2-11); Neutrophils Absolute Auto 3.6 x10*3/uL (2.0-8.3); Neutrophils Percent Auto 54.5 % (45-73); Platelet Count 311 X10*3/uL (160-400); Red Blood Count 4.62 X10*6/uL (4.60-5.80); Red Cell Distribution Width 15.5 % (11.0-16.0); White Blood Count 6.6 X10*3/uL (4.8-10.8)
[2024-12-22 16:28] LABS: Alanine Aminotransferase 25 U/L (0-40); Albumin Level 4.2 g/dL (3.5-5.0); Alkaline Phosphatase 68 U/L (39-117); Anion Gap 12 (12-20); Aspartate Amino Transferase 23 U/L (5-37); Bilirubin Total 0.3 mg/dL (0.0-1.0); Blood Urea Nitrogen 35 mg/dL (9-16); Calcium 9.3 mg/dL (8.4-10.2); Carbon Dioxide 24 mmol/L (22-29); Chloride 107 mmol/L (96-108); Estimated Glomerular Filt Rate > 60; Glucose Random 79 mg/dL (60-115); Potassium 4.2 mmol/L (3.3-5.1); Sodium 139 mmol/L (135-145); Total Protein 7.3 g/dL (6.5-8.0)
== END 2024-12-22 12:27 | disposition home or self-care (01) ==
LOC: HO.HMGCLDS 12:26
PROVIDERS: PCP Nurse Practitioner Family; Visit Provider Nurse Practitioner Family
DX: Z01.818 Encounter for other preprocedural examination (principal)
CPT/HCPCS: 36415; 80053; 85025; 96127

== ENCOUNTER 2024-12-22 12:26 | Outpatient (AMB) | payer OTHER, SELFPAY ==
[2024-12-22 12:29] VITALS: BP 132/80; PULSE 68; RESP 18; TEMP 36.6; O2SAT 98; BMI 25.1
--- NOTE | 2024-12-22 12:29 | MHC.PC.OV ---
Vital Signs 12/22/24 12:29 Height 6 ft 1 in Weight 190 lb BMI 25.1 BP 132/80 Blood Pressure Location Lt brachial Position Sitting Respiration 18 Pulse 68 Pulse Source Pulse Oximeter Temp 97.9 F Temp Source Oral Pulse Oximetry (%) 98 Oxygen Delivery Method Room Air Intake Visit Reasons: Ernesto gambino/Dr. Decker 01/31/25 Intake Note: Pt is here today for Pre op visit. Allergies No Known Allergies Allergy (Verified 12/22/24 12:33) Medication List - Last Reconciled 12/22/24 by Clyde Bruner, [facility]- cholecalciferol (vitamin D3) (Vitamin D3) 50 mcg PO DAILY iron, carbonyl PO multivitamin 1 tab PO DAILY zinc acetate 50 mg PO DAILY Tobacco use date assessed: 12/22/24 Fall risk assessment: No Falls in past year Last assessed Fall Risk: 12/22/24 Dental Screening Dental Screen Date: 12/22/24 Did you have a dental visit in the last 12 months?: Yes Did you have a dental problem in the last 6 months where you did not have access to dental care?: No Was dental information given to patient?: Patient has dentist HPI Ernesto gambino/Dr. Decker 01/31/25 HPI Details Chief Complaint Preoperative clearance History of Present Illness The patient is a 69-year-old male presenting with the need for a preoperative evaluation. He has a documented history of First Degree Atrioventricular (AV) Block. No new symptoms or exacerbations linked to this condition were reported, and his current cardiac rhythm remains unchanged. He denies any accompanying symptoms such as fever, chills, or shortness of breath. A routine laboratory test, including a CBC and a basic metabolic profile, has been ordered. Social History Health Maintenance - CBC and basic metabolic profile ordered for future assessment Review of Systems - Cardiovascular: Denies shortness of breath - Constitutional: Denies fevers, chills Physical Exam General: Cooperative, healthy appearing, comfortable, no acute distress and well developed Orientation: Patient oriented x3 Limitations: No limitations Head: Normal to inspection Ears: Hearing grossly normal bilaterally Nose: Normal external nose present Face and sinus: Normal facial exam Eyes: Appearance normal, both eyes and all related structures Neck: Normal visual inspection and Yes full ROM, no lymphadenopathy noted Respiratory: Normal respiratory effort and able to speak in complete sentences. Clear to auscultation bilaterally Cardiovascular: Regular rate and rhythm. Normal S1 and S2 GI: Normal to inspection. Soft to palpation and nontender Skin: No rashes or lesions noted Neuro: Patient oriented x3 Extremities: Normal to inspection Results - EKG: First Degree Atrioventricular (AV) Block, consistent with baseline rhythm Plan I performed a preoperative evaluation for the patient's cardiac health, particularly regarding his known First Degree Atrioventricular AV) Block. An EKG confirmed his baseline rhythm, supporting my assessment. A complete blood count CBC) and a basic metabolic profile have been ordered to further guide preoperative clearance. His current presentation appears stable, and if the upcoming tests align with current expectations, I will clear him for surgery soon. Discussion Notes I discussed the results of today's EKG with the patient, reassuring him about the stable status of his First Degree Atrioventricular (AV) Block, which matches his known baseline. We reviewed the importance of upcoming laboratory tests, including a CBC and a basic metabolic profile, to ensure optimal preoperative clearance. The patient was informed that if no abnormalities arise from these tests, he will be cleared for his upcoming surgery. I explained the importance of monitoring and ensuring his cardiac stability preoperatively. Patient Instructions - Complete the laboratory tests for CBC and basic metabolic profile as scheduled. - Report any new symptoms such as fever or shortness of breath immediately. - Attend the follow-up appointment for results discussion and preoperative clearance. [facility] Medical History Coagulase negative Staphylococcus bacteremia Hydronephrosis concurrent with and due to calculi of kidney and ureter Myxomatous mitral valve Kidney stones Pyelonephritis MSSA bacteremia Bladder stones Acute kidney injury Ureteral stent present BPH (benign prostatic hyperplasia) Detached retina Hernia Surgical History Hx of right inguinal hernia repair (11/16/24) H/O colonoscopy Status post ablation of incompetent vein using laser (07/25/22) History of cystoscopy History of prostate surgery Hx of varicose vein ligation (~11/2023) History of eye surgery History of umbilical hernia repair Family History Sister Melanoma Social History Household Members: Family Housing: House Are you a primary acute care occupational therapist to a significant other at home: No Do you presently have visiting nurse or other home services: No Alcohol intake: former Comment: medicated with po tylenol Patient Tobacco Use Status: Former Tobacco user Tobacco use type: Cigarette e-Cigarette/Vaping Use: Former Use Second Hand Smoke Exposure: No Advance Directives Date on File: 12/01/22 service: No Current occupational status: employed Current occupation: [employer] Cognitive needs: No Hearing needs: No Vision needs: Yes Questionnaire PHQ-9 Over the last 2 weeks, how often have you been bothered by any of the following problems? 1. Little interest or pleasure in doing things: not at all 2. Feeling down, depressed, or hopeless: not at all 3. Trouble falling or staying asleep, or sleeping too much: not at all 4. Feeling tired or having little energy: not at all 5. Poor appetite or overeating: not at all 6. Feeling bad about yourself - or that you are a failure or have let yourself or your family down: not at all 7. Trouble concentrating on things, such as reading the newspaper or watching television: not at all 8. Moving or speaking so slowly that other people could have noticed. Or the opposite - being so fidgety or restless that you have been moving around a lot more than usual: not at all 9. Thoughts that you would be better off or of hurting yourself in some way: not at all Total score: 0 Depression Screening Interpretation: Negative Depression Screening Done: Yes 81152 - PHQ-9 Billing: Yes Source: Developed by Drs. Chetan Brewer, Estrellita Nuñez, Jt Lorenzo and colleagues, with an educational ozzy from [employer]. Thrive Questionnaire Date Thrive assessed: 12/22/24 I am a: Patient What is your living situation today?: I have a steady place to live Within the past 12 months, did the food you bought not last and you didn't have the money to get more?: Never true Within the past 12 months, did you worry whether your food would run out before you got money to buy more?: Never true Do you have trouble paying for medicines?: No Do you have trouble getting transportation to medical appointments?: No Do you have trouble paying your heating and electricity bill?: No Do you have trouble taking care of your child, family member or friend?: No Do you have trouble with day-to-day activities such as bathing, preparing meals, shopping, managing finances, etc.?: No Are you currently unemployed and looking for a job?: No Are you interested in more education?: No Please select the resources that you would like help with: None Currently or been in a relationship where the following occur: No concerns reported THRIVE Score: 0 AUDIT C Alcohol Use Questionnaire (AUDIT-C) 1. How often do you have a drink containing alcohol?: Never 3. How often do you have six or more drinks on one occasion?: Never Total Score: 0 MAHESH-7 AMB Questionnaire MAHESH-7 Date MAHESH - 7 assessed: 12/22/24 Feeling nervous, anxious, or on edge: 0 = Not at all Not being able to stop or control worryin = Not at all Worrying too much about different things: 0 = Not at all Trouble relaxin = Not at all Being so restless that it is hard to sit still: 0 = Not at all Becoming easily annoyed or irritable: 0 = Not at all Feeling afraid as if something awful might happen: 0 = Not at all Total MAHESH-7 score (0-4 normal; 5-9 mild; 10-14 moderate; 15-21 severe): 0 Source: Developed by Drs. Chetan Brewer, Estrellita Nuñez, Jt Lorenzo and colleagues, with an educational ozzy from [employer]. MAHESH-7 Assessment Billing MAHESH-7 Assessment Tool: MAHESH-7 Assessment 85267 Physical exam (Primary Care) Vital Signs: Last Vital Signs Temp 97.9 F 12/22/24 12:29 Pulse 68 12/22/24 12:29 Resp 18 12/22/24 12:29 BP 132/80 12/22/24 12:29 Pulse Ox 98 12/22/24 12:29 Oxygen Delivery Method Room Air 12/22/24 12:29 BMI result Body Mass Index 25.1 Tobacco/Smoking Status: Tobacco use Status Tobacco use date assessed 12/22/24 12/22/24 12:40 Patient Tobacco Use Status Former Tobacco user 12/22/24 12:40 Tobacco use type Cigarette 12/22/24 12:40 e-Cigarette/Vaping Use Former Use 12/22/24 12:40 PHQ-9: PHQ-9 Score PHQ-9: Total score 0 12/22/24 12:40 Depression Screening Interpretation: Negative Thrive Assessment: Date of Thrive Assessment Date Thrive assessed 12/22/24 12/22/24 12:40 Currently or been in a relationship where the following occur: No concerns reported Coding Level of Care Code Est Pt Prev Care >65y(58282) Diagnoses Pre-op exam Z01.818 Additional Codes MAHESH-7 Assessment Billing - MAHESH-7 Assessment Tool: MAHESH-7 Assessment 30100 ([id number]) PHQ-9 - 89399 - PHQ-9 Billing: Yes ([id number]) Assessment & Plan Assessment & Plan (1) Pre-op exam: Code(s): Z01.818 - Encounter for other preprocedural examination Category: Medical Plan . Orders: Orders Complete Blood Count Auto Diff Today Z01.818 - Encounter for other preprocedural examination Comprehensive Met. Panel Today Z01.818 - Encounter for other preprocedural examination
== END 2024-12-22 13:16 | disposition home or self-care (01) ==
LOC: HO.HMCC 12:26
PROVIDERS: PCP Nurse Practitioner Family; Visit Provider Nurse Practitioner Family
DX: Z01.818 Encounter for other preprocedural examination (principal)

== ENCOUNTER → 2025-01-06 10:44 | Outpatient (BNVA) | payer OTHER, SELFPAY | PROVIDERS: PCP Nurse Practitioner Family | DX: Z01.818 Encounter for other preprocedural examination (principal) ==

== ENCOUNTER 2025-01-26 08:24 | Outpatient (REF) | payer OTHER, SELFPAY ==
--- NOTE | ~2025-01-26 | XR_ITS ---
EXAMINATION: XR HIP 2 OR MORE VIEWS RIGHT HISTORY: M25.551 - Pain in right hip COMPARISON: Correlation is made with plain films of the pelvis dated 11/10/2024. FINDINGS: A single AP view of the pelvis and two views of the right hip are submitted. Osseous mineralization is normal. There is no fracture or dislocation. There is severe osteoarthritis with joint space narrowing, osteophyte formation, and subchondral cyst formation. There is mild to moderate narrowing of the left hip. The soft tissues are unremarkable. XR/XR hip RT min 2V IMPRESSION: Severe osteoarthritis of the right hip as described. Electronically signed by: Chetan Howard MD 01/26/2025 10:44 AM EDT
== END 2025-01-26 08:25 | disposition home or self-care (01) ==
LOC: HO.HOSX 08:24
PROVIDERS: Visit Provider Physician Assistant
DX: M25.551 Pain in right hip (principal)
CPT/HCPCS: 73502

== ENCOUNTER 2025-01-26 08:45 | Outpatient (AMB) | payer OTHER, SELFPAY ==
--- NOTE | 2025-01-26 08:56 | A.OFFVIS_ITS ---
Vital Signs 01/26/25 08:59 Height 6 ft 1 in Weight 192 lb BMI 25.3 BP 122/76 Blood Pressure Location Rt brachial Position Sitting Pulse 73 Intake Visit Reasons: 1 mth follow up S/P RIH w/mesh Intake Note: Patient is seen in office for one month follow up visit, post right inguinal hernia repair. Pt c/o: no concerns. Reports incision site healed well. Rn Womens Health Required: No Accompanied by: Self / Same As Patient Allergies No Known Allergies Allergy (Verified 01/26/25 09:01) HPI HPI 1 mth follow up S/P RIH w/mesh: Details: Patient reports he is doing well. Denies pain, aside from occasional pulling with certain movements. He has no concerns with the incision site, denies swelling, redness, discharge. He reports he has returned to work and has been trying to stick to the limit of 10 lb weight restriction however he has gone over this a couple times at work but has tolerated this well. His appetite and bowel function are at baseline. He has no other concerns. Patient reports he will be having a right hip replacement on January 31. ON LICENSE OF [facility] Medical History (Updated 12/30/24 @ 10:28 by Anastacia Caballero RN) Osteoarthritis History of postoperative nausea and vomiting Coagulase negative Staphylococcus bacteremia (~2022) Hydronephrosis concurrent with and due to calculi of kidney and ureter Myxomatous mitral valve Kidney stones (2022) Pyelonephritis MSSA bacteremia (~2022) Bladder stones Acute kidney injury (2022) Ureteral stent present BPH (benign prostatic hyperplasia) Detached retina Hernia Surgical History (Updated 01/26/25 @ 09:14 by Deangelo Daniels PA-C) Hx of left inguinal hernia repair Hx of right inguinal hernia repair (11/16/24) H/O colonoscopy Status post ablation of incompetent vein using laser (07/25/22) History of cystoscopy History of prostate surgery Hx of varicose vein ligation (~11/2023) History of eye surgery Family History Sister Melanoma Social History Household Members: Family Housing: House Are you a primary career development manager to a significant other at home: No Do you presently have visiting nurse or other home services: No Alcohol intake: former Comment: aware of trip hazard Patient Tobacco Use Status: Former Tobacco user Tobacco use type: Cigarette e-Cigarette/Vaping Use: Former Use Second Hand Smoke Exposure: No Advance Directives Date on File: 12/01/22 service: No Current occupational status: employed 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 No surrounding erythema, fluid collection, nontender to palpation Inspection: Yes normal to inspection and No distended Palpation (GI): Soft to palpation, nontender and no guarding Neuro General: patient oriented x3 Assessment & Plan Assessment & Plan (1) S/P right inguinal hernia repair: Code(s): Z98.890 - Other specified postprocedural states; Z87.19 - Personal history of other diseases of the digestive system Category: Medical Plan 70-year-old male s/p right inguinal hernia repair with mesh on 11/16/2024 returning for 1 month postop visit. Patient doing well. Not experiencing any pain. Bowel function and appetite are at baseline. Abdominal exam is soft and benign. Incision site appears to be healing well no concern for infection at this time no evidence of recurrence. Patient is okay to return to work without restrictions. Recommended slowly increasing activity level back towards baseline. Patient can follow-up in 2 months for routine follow-up. He will return sooner with any concerns prior Coding Level of Care Code Global (69922) Diagnoses S/P right inguinal hernia repair Z98.890; Z87.19
[2025-01-26 08:59] VITALS: BP 122/76; PULSE 73; BMI 25.3
== END 2025-01-26 09:10 | disposition home or self-care (01) ==
LOC: HO.HGS 08:45
PROVIDERS: PCP Nurse Practitioner Family
DX: Z98.890 Other specified postprocedural states (principal); Z87.19 Personal history of other diseases of the digestive system
CPT/HCPCS: 99024

== ENCOUNTER 2025-01-26 09:20 | Outpatient (AMB) | payer OTHER, SELFPAY ==
--- NOTE | 2025-01-26 09:27 | A.OFFVIS_ITS ---
Intake Visit Reasons: Pre-Op: R TEO w/NE 01/31/25 Intake Note: Sancho is a 70 year old male who presents today for a preoperative right TEO, DOS: 01/31/[address] Decker. Pain management agreement reviewed and signed. Allergies No Known Allergies Allergy (Verified 01/26/25 09:01) Medication List - Last Reconciled 01/26/25 by Vance Ramirez PA-C cholecalciferol (vitamin D3) (Vitamin D3) 100 mcg PO DAILY iron, carbonyl PO DAILY multivitamin 1 tab PO DAILY [Raised toilet seat duration - 99 days] [SHOWER CHAIR As directed] walker Folding Front wheeled walker zinc acetate 50 mg PO DAILY HPI Comments Details: presents to the office today for preop visit. He is scheduled for right total hip arthroplasty with Dr. Decker. He continues to have ongoing pain and difficulty with ambulation in the right hip, which is affecting his quality of life; therefore, he has elected to move forward with surgery. Patient lives at home with his and plans to DC home with VNA post op He is not a current smoker. No h/o DVT or cancer. He was able to obtained a walker [facility] Medical History (Updated 01/26/25 @ 09:49 by Vance Ramirez PA-C) Osteoarthritis History of postoperative nausea and vomiting Coagulase negative Staphylococcus bacteremia (~2022) Hydronephrosis concurrent with and due to calculi of kidney and ureter Myxomatous mitral valve Kidney stones (2022) Pyelonephritis MSSA bacteremia (~2022) Bladder stones Acute kidney injury (2022) Ureteral stent present BPH (benign prostatic hyperplasia) Detached retina Hernia Surgical History Hx of left inguinal hernia repair Hx of right inguinal hernia repair (11/16/24) H/O colonoscopy Status post ablation of incompetent vein using laser (07/25/22) History of cystoscopy History of prostate surgery Hx of varicose vein ligation (~11/2023) History of eye surgery Family History Sister Melanoma Social History Household Members: Family Housing: House Are you a primary acute care assistant to a significant other at home: No Do you presently have visiting nurse or other home services: No Alcohol intake: former Comment: aware of trip hazard Patient Tobacco Use Status: Former Tobacco user Tobacco use type: Cigarette e-Cigarette/Vaping Use: Former Use Second Hand Smoke Exposure: No Advance Directives Date on File: 12/01/22 service: No Current occupational status: employed 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 - [employer] Cognitive needs: No Hearing needs: No Vision needs: Yes Review of Systems Const All systems reviewed & are unremarkable except as noted in HPI and below Physical Exam Const General: cooperative, healthy appearing, comfortable, no acute distress, well developed and alert Orientation/consciousness: patient oriented x3 HEENT Head: Yes normal to inspection, Yes normocephalic and Yes atraumatic Eyes General: appearance normal, both eyes and all related structures Neck Neck: Yes normal visual inspection and Yes no lymphadenopathy Resp Effort & Inspection: normal respiratory effort and able to speak in complete sentences Cardio Rate: regular rate Peripheral pulses: Peripheral pulses 2+ throughout GI Inspection: Yes normal to inspection Palpation (GI): Soft to palpation Skin General skin exam: no rashes or lesions noted Neuro General: patient oriented x3 Extrem Other: Positive Trendelenburg gait He has 90 degrees hip flexion with pain on internal rotation motion both externally internally right hip. Psych Appearance: grossly normal Mental Status: mental status grossly normal Results Reviewed Results Reviewed: Xrays were obtained in the office today and personally reviewed by me of the right hip obtained for surgical planning Assessment & Plan Assessment & Plan (1) Osteoarthritis of right hip: Code(s): M16.11 - Unilateral primary osteoarthritis, right hip Category: Medical Plan: I discussed in detail the procedure and what to expect pre and post operatively. We discussed the risks, benefits and alternatives to the surgery as well as the rehabilitation course. The risks; which include, but are not limited to infection, bleeding, nerve injury, ongoing pain, swelling, and stiffness, perioperative risk of injury to bones and soft tissues, and blood clots. I?ve answered all questions and with their understanding they have consented to move forward with Right total hip arthroplasty with Dr. Decker He will be placed on ASA 325mg tabs pot bid post op His plan is to be DC home with VNA services PT order was placed and he will contact [facility] to make an appt to begin after 02/16/25 Orders: Orders XR hip RT min 2V Today M25.551 - Pain in right hip Basic Metabolic Panel Today Z01.818 - Encounter for other preprocedural examination PT Evaluation and Treatment Today Z96.641 - Presence of right artificial hip joint Complete Blood Count Auto Diff Today Z01.818 - Encounter for other preprocedural examination Type and Screen Today Z01.818 - Encounter for other preprocedural examination Coding Level of Care Code Est Pt Level 3 (97131) Complex EM visit Add On G2211 Diagnoses Osteoarthritis of right hip M16.11
== END 2025-01-26 09:58 | disposition home or self-care (01) ==
LOC: HO.HOS 09:21
PROVIDERS: PCP Nurse Practitioner Family; Visit Provider Physician Assistant
DX: M16.11 Unilateral primary osteoarthritis, right hip (principal)
CPT/HCPCS: 99213

== ENCOUNTER → 2025-01-26 09:28 | Outpatient (BNV) | payer OTHER, SELFPAY | PROVIDERS: Visit Provider Radiology Diagnostic Radiology | DX: M16.11 Unilateral primary osteoarthritis, right hip (principal) | CPT/HCPCS: 73502 ==

== ENCOUNTER 2025-01-26 10:00 | Outpatient (REF) | payer OTHER, SELFPAY ==
[2025-01-26 10:22] LABS: MANUAL DIFF FLAG NO
[2025-01-26 10:53] LABS: Basophils Absolute Auto 0.1 X10*3/uL (0.0-0.2); Basophils Percent Auto 1.4 % (0-2); Eosinophils Absolute Auto 0.1 X10*3/uL (0.0-0.4); Eosinophils Percent Auto 1.7 % (0-4); Hematocrit 41.4 % (42.0-52.0); Hemoglobin 12.9 g/dl (14.0-18.0); Imm Gran Abs Auto 0.01 X10*3/uL (0.00-0.03); Imm Gran Pct Auto 0.2 % (0.0-0.4); Lymphocytes Absolute Auto 1.8 X10*3/uL (1.2-4.9); Lymphocytes Percent Auto 27.8 % (20-40); Mean Corpuscular HGB Conc 31.2 g/dl (31.0-36.0); Mean Corpuscular Hemoglobin 24.7 pg (27.0-33.0); Mean Corpuscular Volume 79.2 fL (80.0-98.0); Mean Platelet Volume 10.2 fL (9.4-12.4); Monocytes Absolute Auto 0.7 X10*3/uL (0.1-1.2); Monocytes Percent Auto 10.7 % (2-11); Neutrophils Absolute Auto 3.7 x10*3/uL (2.0-8.3); Neutrophils Percent Auto 58.2 % (45-73); Platelet Count 312 X10*3/uL (160-400); Red Blood Count 5.23 X10*6/uL (4.60-5.80); Red Cell Distribution Width 16.8 % (11.0-16.0); White Blood Count 6.4 X10*3/uL (4.8-10.8)
[2025-01-26 11:21] LABS: Anion Gap 12 (12-20); Blood Urea Nitrogen 38 mg/dL (9-16); Calcium 9.7 mg/dL (8.4-10.2); Carbon Dioxide 24 mmol/L (22-29); Chloride 109 mmol/L (96-108); Estimated Glomerular Filt Rate > 60; Glucose Random 96 mg/dL (60-115); Potassium 4.5 mmol/L (3.3-5.1); Sodium 140 mmol/L (135-145)
== END 2025-01-26 10:01 | disposition home or self-care (01) ==
LOC: HO.LAB 10:00
PROVIDERS: PCP Nurse Practitioner Family; Visit Provider Physician Assistant
DX: Z01.818 Encounter for other preprocedural examination (principal)
CPT/HCPCS: 36415; 80048; 85025

== ENCOUNTER 2025-01-31 06:56 | Day surgery (SDC) | payer OTHER, SELFPAY ==
[2024-12-30 10:07] VITALS: BP 117/76; PULSE 73; RESP 16; O2SAT 98; BMI 25.1
--- NOTE | 2024-12-30 10:42 | P.CONAN_ITS ---
Documented by User: Almaz Ojeda NP 01/27/25 14:14 HPI - Anesthesia Eval Consult details Narrative: 69yo M for Right Hip Total Replacement, 01/31/25 Medically optimized per PCP No recent illness No CP/SOB with regular gym exercise PONV: will try scop patch for GA/post op opiates PMFSH Active Problems Active Problems: All Active Problems Prostatitis due to Kathleen species (Acute) Fungal infection (Acute) Pre-op exam (Acute) Anemia (Acute) Right inguinal hernia (Acute) Low back pain (Acute) Primary osteoarthritis of left hip (Acute) Osteoarthritis (Acute) Osteoarthritis of right knee (Acute) Osteoarthritis of left knee (Acute) Primary osteoarthritis of right hip (Acute) Incomplete emptying of bladder due to benign prostatic hyperplasia (Acute) History of adenomatous polyp of colon (Acute) Systolic murmur (Acute) Screening for colon cancer (Acute) Physical exam (Acute) Renal calculus, right (Acute) Hydronephrosis (Acute) Blockage of stent of ureter (Acute) Urinary tract infection (Acute) Acute unilateral obstructive uropathy (Acute) Varicose veins of right lower extremity with inflammation (Acute) Varicose veins of left lower extremity with inflammation (Acute) Elevated PSA (Acute) Varicose vein of leg (Acute) Gross hematuria (Acute) UTI (urinary tract infection), bacterial (Acute) BPH w urinary obs/LUTS (Acute) Coagulase negative Staphylococcus bacteremia (Acute ~2022) Bladder stones (Acute) MSSA bacteremia (Acute ~2022) Past Medical History Medical History Osteoarthritis History of postoperative nausea and vomiting Coagulase negative Staphylococcus bacteremia (~2022) Hydronephrosis concurrent with and due to calculi of kidney and ureter Myxomatous mitral valve Kidney stones (2022) Pyelonephritis MSSA bacteremia (~2022) Bladder stones Acute kidney injury (2022) Ureteral stent present BPH (benign prostatic hyperplasia) Detached retina Hernia Family History Family History Sister Melanoma Family history of problems with anesthesia: No Surgical History Surgical History Hx of tonsillectomy Hx of left inguinal hernia repair Hx of right inguinal hernia repair (11/16/24) H/O colonoscopy Status post ablation of incompetent vein using laser (07/25/22) History of cystoscopy History of prostate surgery Hx of varicose vein ligation (~11/2023) History of eye surgery History of Problems with Anesthesia: No Social History Social History Household Members: Family Housing: House Are you a primary hearing healthcare practitioner to a significant other at home: No Do you presently have visiting nurse or other home services: No Alcohol intake: former Comment: medicated with po tylenol Patient Tobacco Use Status: Former Tobacco user Tobacco use type: Cigarette e-Cigarette/Vaping Use: Former Use Second Hand Smoke Exposure: No Use of substances other than those prescribed or required for medical reasons: No Have you been hit, kicked, punched, or otherwise hurt by someone within the past year? 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 - [employer] Cognitive needs: No Hearing needs: No Vision needs: Yes Meds Allergies Allergy/AdvReac Type Severity Reaction Status Date / Time No Known Allergies Allergy Verified 01/26/25 09:01 Home Medications ?Medication ?Instructions ?Recorded ?Confirmed ?Last Taken ?Type cholecalciferol (vitamin D3) 50 100 mcg PO DAILY 11/29/22 01/26/25 01/24/25 History mcg (2,000 unit) tablet (Vitamin D3) multivitamin 1 tab PO DAILY 11/29/22 01/26/25 01/24/25 History zinc acetate 50 mg (zinc) capsule 50 mg PO DAILY 11/29/22 01/26/25 01/24/25 History iron, carbonyl PO DAILY 12/22/24 01/26/25 01/24/25 History Exam Height,Weight and Vital Signs: Height 6 ft 1 in Weight 86.183 kg Last Vital Signs Pulse 73 12/30/24 10:07 Resp 16 12/30/24 10:07 BP 117/76 12/30/24 10:07 Pulse Ox 98 12/30/24 10:07 O2 Del Method Room Air 12/30/24 10:07 Pertinent Lab Results Pertinent Lab Results: Lab Results 12/30/24 01/26/25 Range/Units 10:50 10:10 Nasal Screen MRSA (PCR) NEGATIVE (Negative) Nasal S. aureus Screen NEGATIVE (Negative) Nasal MRSA/S.aureus Interp SEE NOTE Blood Type A Negative Antibody Screen NEGATIVE Laboratory Tests 01/26/25 10:20 WBC 6.4 Hgb 12.9 L Hct 41.4 L Plt Count 312 Sodium 140 Potassium 4.5 Chloride 109 H Carbon Dioxide 24 BUN 38 H Creatinine 1.09 Narrative Narrative: EKG 12/2024 SB with 1st deg AV block ECHO 2022 Conclusions: - Technically difficult study. - No obvious vegetations or valvular dysfunction based on available images. Findings Left Ventricle Normal left ventricular cavity size. The left ventricular systolic function is normal. The visually estimated ejection fraction is between 60-65%. There is no evidence of regional wall motion abnormalities. Aortic Valve The aortic valve was not well visualized. There is mild calcification of the aortic valve. There is no aortic valve stenosis. There is no aortic valve regurgitation. Mitral Valve There is mild anterior mitral leaflet thickening. There is no mitral valve regurgitation. There is no mitral valve stenosis. Pulmonic Valve The pulmonic valve was not well visualized. Tricuspid Valve There is trace tricuspid valve regurgitation. Airway Mallampati Class: III TM Dist: >3cm Neck ROM: Full Loose/Missing/Broken Teeth: No (left lower implant) Heart: RRR Lungs: CTAB Assessment and Plan Assessment Anesthesia Assessment: Anesthesia Plan Discussed and PAT Visit Final Anesthetic Review Family History of Problems with Anesthesia: No History of Problems with Anesthesia: No Documented by User: Denisa Smith MD 01/31/25 10:20 [facility] Past Medical History Medical History Osteoarthritis History of postoperative nausea and vomiting Coagulase negative Staphylococcus bacteremia (~2022) Hydronephrosis concurrent with and due to calculi of kidney and ureter Myxomatous mitral valve Kidney stones (2022) Pyelonephritis MSSA bacteremia (~2022) Bladder stones Acute kidney injury (2022) Ureteral stent present BPH (benign prostatic hyperplasia) Detached retina Hernia Family History Family History Sister Melanoma Surgical History Surgical History Hx of tonsillectomy Hx of left inguinal hernia repair Hx of right inguinal hernia repair (11/16/24) H/O colonoscopy Status post ablation of incompetent vein using laser (07/25/22) History of cystoscopy History of prostate surgery Hx of varicose vein ligation (~11/2023) History of eye surgery Social History Social History Household Members: Family Housing: House Are you a primary hearing healthcare practitioner to a significant other at home: No Do you presently have visiting nurse or other home services: No Alcohol intake: former Comment: medicated with po tylenol Patient Tobacco Use Status: Former Tobacco user Tobacco use type: Cigarette e-Cigarette/Vaping Use: Former Use Second Hand Smoke Exposure: No Use of substances other than those prescribed or required for medical reasons: No Have you been hit, kicked, punched, or otherwise hurt by someone within the past year? If so, by whom?: No Are you DNR?: No Advance Directives: Yes Advance Directives Information Provided: No Advance Directives on File: Yes Advance Directives Date on File: 12/01/22 Poor oral hygiene: No service: No Current occupational status: employed Current occupation: [employer] Cognitive needs: No Hearing needs: No Vision needs: Yes Meds Allergies Allergy/AdvReac Type Severity Reaction Status Date / Time No Known Allergies Allergy Verified 01/26/25 09:01 Home Medications ?Medication ?Instructions ?Recorded ?Confirmed ?Last Taken ?Type cholecalciferol (vitamin D3) 50 100 mcg PO DAILY 11/29/22 01/26/25 01/24/25 History mcg (2,000 unit) tablet (Vitamin D3) multivitamin 1 tab PO DAILY 11/29/22 01/26/25 01/24/25 History zinc acetate 50 mg (zinc) capsule 50 mg PO DAILY 11/29/22 01/26/25 01/24/25 History iron, carbonyl PO DAILY 12/22/24 01/26/25 01/24/25 History Assessment and Plan Final Anesthetic Review NPO: Yes ASA Class: III Final Preanesthetic Review: No Changes in Pt Med Stat, Meds/Allgs Chart Reviewed, Consent Obtained/Reviewed and Anes Risks/Benef Reviewed Patient Risk: Intermediate Procedure Risk: Intermediate Anesthetic Plan Anesthetic Plan: GA and Agree w/ Assess. and Plan Disposition: Standard PACU
[2024-12-30 12:47] LABS: MRSA Nasal PCR NEGATIVE (Negative); SA Nasal PCR NEGATIVE (Negative)
[2025-01-31] VITALS (19 sets, daily range): BP systolic 93–127; BP diastolic 53–80; PULSE 45–67; RESP 12–18; TEMP 36.3–37.7; O2SAT 94–99; BMI 25.1
--- NOTE | 2025-01-31 | ECG_ITS ---
Test Reason : bradycardia Blood Pressure : */* mmHG Vent. Rate : 63 BPM Atrial Rate : 63 BPM P-R Int : 212 ms QRS Dur : 104 ms QT Int : 428 ms P-R-T Axes : -5 -8 11 degrees QTcB Int : 437 ms Sinus rhythm with 1st degree A-V block Low voltage QRS Incomplete right bundle branch block Borderline ECG When compared with ECG of 28-Sep-2024 10:44, T wave inversion now evident in Anterior leads Referred By: Damari Case Electronically Signed By: TERESA MARTINEZ MD
--- NOTE | ~2025-01-31 | XR_ITS ---
EXAMINATION: XR PELVIS CLINICAL INFORMATION: Follow-up post right total hip arthroplasty. COMPARISON: November 10, 2024 TECHNIQUE: AP view of the pelvis. FINDINGS: Since prior examination, the liver arthroplasty has been performed on the right. Skin janett remain visible in the overlying lateral soft tissues. There is also soft tissue edema and minimal gas. The stomach component makes good contact and is optimally oriented. Femoral component makes good contact with endosteal bone. No periprosthetic fracture is evident. Large osseous fragment remains evident along the lateral acetabular roof. The left hip joint demonstrates moderate narrowing in the superior lateral hip joint space with moderate osteophyte formation involving acetabulum, femoral head, and fovea. XR/XR pelvis 1-2V IMPRESSION: Changes related to recent right total hip arthroplasty. Moderate left hip osteoarthritis. Electronically signed by: Domenic Zamora MD 01/31/2025 02:06 PM EDT
[2025-01-31] MEDS: oxyCODONE HCl ER 10 MG TAB.ER.12H PO ×2 (07:44→22:17)
[2025-01-31] MEDS: Lactated Ringers 1,000 ML 100 ML IVCONT ×2 (08:28→16:51)
--- NOTE | 2025-01-31 10:11 | MHC.SHP ---
Pre-Procedural Eval Section A - 24 Hr Update-Section A only Date of Service: 01/31/25 The patient is an INPATIENT: No Changes since office visit: No Cold of Flu in the past 2 weeks, No New Medical Problems, No Changes in Medication and No Patient answered all questions The patient has been examined within 24 hours of the surgical procedure. The History & Physical has been completed within 30 days and I have reviewed it.: Yes Section B - Complete if H&P > 30 days Chief Complaint: Unilateral primary osteoarthritis, right hip Allergies: Allergies Allergy/AdvReac Type Severity Reaction Status Date / Time No Known Allergies Allergy Verified 01/26/25 09:01 Plan I have reviewed the history and physical and performed a pertinent physical examination on my patient. No changes have occurred unless specified. Time Spent With Patient Time: Total time managing care of this patient today ____ minutes.
[2025-01-31] MEDS: ceFAZolin Sodium/Dextrose,Iso 2 GM/50 ML PIGGYBACK IV ×2 (11:05→16:53)
--- NOTE | 2025-01-31 12:44 | P.OP_ITS ---
Operative Note Operative Note Date of Service: 01/31/25 Narrative: Date of Service: 01/31/25 Pre-op diagnosis: Right hip OA Post-op diagnosis: same Procedure: Right TEO Implants: [place] Accolade2 #6 127 with +0/36 ceramic Maegan Trident2 60/ 20 deg liner Surgeon: Jorge A Decker MD Anesthesia: GETA and local Was an Brim And Crown Presser used for this Procedure?: Yes Brim And Crown Presser: Vance Ramirez Estimated blood loss (mL): 200 IV fluids (mL): 1,000 Pathology: other Condition: stable Disposition: PACU Procedure in detail: Patient was brought into the operating room and placed in the right lateral decubitus position. All bony prominences were well padded and the limb was prepped and draped in standard sterile fashion. A time-out was called to identify proper site procedure proper surgeon IV antibiotics and 1 g of tranexamic acid were administered. I began by making a curvilinear incision over the posterolateral aspect of the greater trochanter. Dissection was taken down to the tensor fascia which was incised in line with the incision and a Charnley retractor was placed. Cautery was used to maintain hemostasis. The hip was internally rotated and the external rotators were identified. The vessels were cauterized and a full-thickness capsular/external rotator layer was developed starting just proximal to the piriformis. This layer was tagged and a dull Hohmann retractor was placed underneath the neck in the hip was dislocated. A neck cut was made 1 cm proximal to the lesser trochanter and the head and neck were removed and measured 58mm on the back table. The head was deformed and eburnated. I then removed the labrum and cauterized the fovea. I placed a sharp tatyana over the medial wall and the lateral wall making sure to protect the posterior soft tissues at all times. I started with a 48 reamer and medialized to the inner table. I sequentially reamed up to a size 60 and impacted a 60mm cup at 45 degrees of inclination and 25 degrees of version. I then placed a 20 deg posterior lipped liner and turned my attention to the femur. I identified the piriformis insertion and used this as a starting point for my dianna cutter. The medius tendon was protected with a Hibs retractor. A Charnley awl was inserted in the canal and a curved curette used to remove the lateral bone. I irrigated copiously. I then sequentially broached in the patient's natural version to a size 6 and placed my trial implants. I used a #6/127/+0 based on my pre-operative template. I removed all instrumentation and copiously irrigated. I was satisfied with the stability and the length. I placed my final femoral implant and again took the hip through range of motion using a +0 head and was satisfied with the stability and length. The final +0 implant was impacted in place and the hip reduced. I then irrigated copiously and placed 1 g of local tranaxemic acid. I performed a capsular closure with 2.0 fiberwire, Sebastian's fascia with 0 Vicryl, subcuticular with 2-0 Vicryl and the skin with janett. Patient was placed into a sterile dressing. Patient was extubated brought to the recovery room in stable condition. There were no known complications.
[2025-01-31] MEDS: HYDROmorphone HCl 0.5 MG/0.5 ML SYRINGE 0.25 MG IVPUSH ×4 (14:15→14:37)
[2025-01-31] MEDS: oxyCODONE HCl Immed Release 5 MG TABLET PO (18:43)
--- NOTE | 2025-01-31 19:02 | PHA.MEDREC ---
Addendum entered by Cristino Rose [facility] 01/31/25 19:04: med rec reviewed Original Note: Pharmacy Consult ? Medication Reconciliation Pharmacy has reviewed the medication reconciliation done by nursing.
--- NOTE | 2025-01-31 19:14 | P.CONHOSP_ITS ---
History of Present Illness Data of Consult Service Date: 01/31/25 Requesting physician: Vance Ramirez [facility] Reason for consult: Medical Management Patient is a 70-year-old male with past medical history bilateral osteoarthritis of hips right greater than left, status post right hip replacement today 01/31/2025, BPH, prostatitis, systolic murmur, nephrolithiasis, and MSSA bacteremia 2022 was seen via consultation per Orthopedics for medical management. Patient at this time has no specific medical concerns or needs. Pt is a Jehova's witness and does not believe in blood transfusions. Patient has been able to void past status post surgery without abnormal symptoms. Patient denies any current flank pain. Review of systems and physical exam also reassuring. Unable to detect a systolic murmur on exam. Lungs currently clear to auscultation bilaterally. Patient is using incentive spirometer appropriately. Review of labs indicate normal renal function, no significant anemia and vital signs are currently stable. Patient denies any history of diabetes, hypertension, hyperlipidemia and currently is not taking routine pr escription med at home. Patient expressed that he is looking forward to physical therapy evaluation and discharged home status post hip replacement. Patient's pain is currently well managed. Neurovascular assessment also reassuring status post hip replacement. Patient is a Jehovah Witness and would not want a blood transfusion if indicated based on his temple believes. Incidentally upon review of patient's records, EKG done in the outpatient setting on 12/22/2024 noted sinus bradycardia with a first-degree AV block. No EKG to compare to. Patient is not currently on any AV gen blocking agents. We will request EKG for review. Review of Systems Review of Systems: Patient currently denies any chest pain, shortness of breath at rest or with exertion, uncontrolled pain involving right hip replacement. Patient denies any issues voiding post surgery and is not having any flank pain or urinary tract symptoms. Patient denies any chronic pain issues. Patient is currently not having any nausea, diarrhea or constipation concerns. Yes all other systems are reviewed and are negative PMFSH Medical History Osteoarthritis History of postoperative nausea and vomiting Coagulase negative Staphylococcus bacteremia (~2022) Hydronephrosis concurrent with and due to calculi of kidney and ureter Myxomatous mitral valve Kidney stones (2022) Pyelonephritis MSSA bacteremia (~2022) Bladder stones Acute kidney injury (2022) Ureteral stent present BPH (benign prostatic hyperplasia) Detached retina Hernia Cognitive capacity: Alert and orientated x3 Functional capacity: independent ambulation (Prior to hip surgery) Family History Sister Melanoma Surgical History Hx of tonsillectomy Hx of left inguinal hernia repair Hx of right inguinal hernia repair (11/16/24) H/O colonoscopy Status post ablation of incompetent vein using laser (07/25/22) History of cystoscopy History of prostate surgery Hx of varicose vein ligation (~11/2023) History of eye surgery Social History Household Members: Spouse Household Members Other:: and step son Housing: House Are you a primary companion caregiver to a significant other at home: No Do you presently have visiting nurse or other home services: No Alcohol intake: former Comment: medicated with po tylenol Patient Tobacco Use Status: Former Tobacco user Tobacco use type: Cigarette e-Cigarette/Vaping Use: Former Use Second Hand Smoke Exposure: No Use of substances other than those prescribed or required for medical reasons: No Currently Displaying Signs/Symptoms of Drug Intoxication Withdrawal: No Have you been hit, kicked, punched, or otherwise hurt by someone within the past year? If so, by whom?: No Do you feel safe in your current relationship?: Yes Is there a partner from a previous relationship who is making you feel unsafe now?: No Are you made to feel afraid or neglected: No Jehovah'S Witness Healthcare Practices: Jehova Witness Are you DNR?: No Advance Directives: Yes Advance Directives Information Provided: No Advance Directives on File: Yes Advance Directives Date on File: 12/01/22 Do you have a plan to hurt others: No Plan Recently lost weight without trying: No Nutrition Risks: No Nutritional Risk Poor oral hygiene: No service: No Current occupational status: employed 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 - [employer] Cognitive needs: No Hearing needs: No Vision needs: Yes Ebola Risk: Travel/Contact With Anyone From Affected Area/s: No Has Patient Experienced Ebola Symptoms: No Meds Allergies Allergy/AdvReac Type Severity Reaction Status Date / Time No Known Allergies Allergy Verified 01/26/25 09:01 Active Medications: Current Medications Acetaminophen (Acetaminophen 325 Mg Tablet) 650 mg PO Q6H PRN PRN Reason: Pain, Mild 1-3,fever,headache Aspirin (Aspirin 325 Mg Tablet) 325 mg PO BID [facility] Celecoxib (Celecoxib 200 Mg Capsule) 200 mg PO BID [facility] Docusate Sodium (Docusate Sodium 100 Mg Capsule) 100 mg PO BID [facility] Hydromorphone HCl (Hydromorphone Hcl 0.5 Mg/0.5 Ml Syringe) 0.25 mg IVPUSH Q4H PRN; Protocol PRN Reason: Pain, Severe (Pain Scale 7-10) Lactated Ringer's (Lr) 1,000 mls @ 100 mls/hr IVCONT .Q10H [facility] Stop: 02/01/25 08:00 Last Admin: 01/31/25 16:51 Dose: 100 mls/hr Ondansetron HCl (Ondansetron Hcl 4 Mg/2 Ml Vial) 4 mg IVPUSH Q8H PRN PRN Reason: Nausea and Vomiting Oxycodone HCl (Oxycodone Hcl Immed Release 5 Mg Tablet) 5 mg PO Q4H PRN PRN Reason: Pain, Moderate(Pain Scale 4-6) Last Admin: 01/31/25 18:43 Dose: 5 mg Oxycodone HCl (Oxycodone Hcl Er 10 Mg Tab.Er.12h) 10 mg PO BID [facility] Sodium Chloride (0.9 % Sodium Chloride Flush 3 Ml Syringe) [facility] Last Admin: 01/31/25 17:59 Dose: Not Given Home Medications ?Medication ?Instructions ?Recorded ?Confirmed ?Last Taken ?Type cholecalciferol (vitamin D3) 50 100 mcg PO DAILY 11/29/22 01/26/25 01/24/25 History mcg (2,000 unit) tablet (Vitamin D3) multivitamin 1 tab PO DAILY 11/29/22 01/26/25 01/24/25 History zinc acetate 50 mg (zinc) capsule 50 mg PO DAILY 11/29/22 01/26/25 01/24/25 History Physical Exam Vital Signs and Narrative: Vital Signs: Last Vital Signs Temp 98.7 F 01/31/25 17:39 Pulse 58 01/31/25 17:39 Resp 18 01/31/25 17:39 BP 112/62 01/31/25 17:39 Pulse Ox 97 01/31/25 17:39 O2 Del Method Room Air 01/31/25 17:39 O2 Flow Rate 2 01/31/25 15:41 BMI result Body Mass Index 25.1 Alert and orientated X3, able to give good history. Neuro: CN II-X11 intact, no deficits, visual acuity intact EYES: PERRLA, EOM intact, sclerae nonicteric, conjunctiva pink ENT: hearing intact, no issues with swallowing, uvula midline, lips moist, nares patent no epistaxis Cardiac: S1 S2 RRR, no murmur, no JVD, no edema in Lower ext Pulmonary: lungs clear to auscultation B Abdominal: BS active in all 4 quadrants, no guarding, tenderness, rebounding MSK: strength 5/5 upper and L lower extremities, sensation intact in right lower extremity : no CVA tenderness no bladder distension Extremities: no edema in lower extremities, PT and DP pulses palpable +2 Psych: mood stable, judgement and insight good Skin: Intact, surgical incision covered with clean dry dressing of right hip area Results ECG Attestation: I personally reviewed and interpreted this ECG as follows: (Previous EKG done on 12/22/2024 outpatient indicated sinus bradycardia with first-degree AV block) Prior ECG tracings: available for review Imaging Radiologist's Impressions: Impressions Pelvis X-Ray 01/31/25 12:20 IMPRESSION: Changes related to recent right total hip arthroplasty. Moderate left hip osteoarthritis. Electronically signed by: Domenic Zamora MD 01/31/2025 02:06 PM EDT Assessment and Plan (1) Status post right hip replacement: Status: Acute Plan Patient is a 70-year-old male with past medical history bilateral osteoarthritis of hips right greater than left, status post right hip replacement today 01/31/2025, BPH, prostatitis, systolic murmur, nephrolithiasis, and MSSA bacteremia 2022 is s/p R hip replacement with Dr. Decker earlier today. Request for consultaton for medical management received from orthopedics. Pt has no current medical concerns at this time. Review of pt's vitals and labs reassuring. Pt has been able to void post operatively noting hx of BPH. Pt denies any issues with flank pain, hematuria and renal function currently WNL. Requesting post operative ECG to review for first degree AVB noted on outpatient ECG done 12/22/2024. Pt is not currently on AV gen blocking agents. Sinus [place] First Degree AVB (noted on outpatient ECG) -Requesting ECG for review -If ECG stable, pt will continue to follow with PCP -Pt is not currently on any AV gen blocking agents -WIll check Magnesium and TSH to ensure all are WNL -Telemetry BPH -Pt has been able to void post operatively -Pt follows with Dr. Rolle in urology -No indication to check UA at this time Will review ECG and added labs and if all stable, hospitalist will sign off. We appreciate the consultation and the opportunity to be involved in this patient's care.
[2025-01-31] MEDS: Docusate Sodium 100 MG CAPSULE PO (22:17)
[2025-01-31] MEDS: Celecoxib 200 MG CAPSULE PO (22:17)
[2025-01-31] MEDS: Aspirin 325 MG TABLET PO (22:17)
[2025-02-01 03:34] VITALS: BP 111/62; PULSE 62; RESP 18; TEMP 36.6; O2SAT 93
[2025-02-01] MEDS: Lactated Ringers 1,000 ML 100 ML IVCONT (03:52)
[2025-02-01 05:59] LABS: MANUAL DIFF FLAG NO
[2025-02-01 06:05] LABS: Basophils Percent Auto 0.6 % (0-2); Eosinophils Absolute Auto 0.1 X10*3/uL (0.0-0.4); Eosinophils Percent Auto 1.1 % (0-4); Hematocrit 33.4 % (42.0-52.0); Hemoglobin 10.5 g/dl (14.0-18.0); Imm Gran Abs Auto 0.02 X10*3/uL (0.00-0.03); Imm Gran Pct Auto 0.3 % (0.0-0.4); Lymphocytes Absolute Auto 1.1 X10*3/uL (1.2-4.9); Lymphocytes Percent Auto 16.1 % (20-40); Mean Corpuscular HGB Conc 31.4 g/dl (31.0-36.0); Mean Corpuscular Hemoglobin 24.9 pg (27.0-33.0); Mean Corpuscular Volume 79.3 fL (80.0-98.0); Mean Platelet Volume 10.3 fL (9.4-12.4); Monocytes Absolute Auto 0.8 X10*3/uL (0.1-1.2); Neutrophils Percent Auto 70.9 % (45-73); Platelet Count 226 X10*3/uL (160-400); Red Blood Count 4.21 X10*6/uL (4.60-5.80); Red Cell Distribution Width 16.6 % (11.0-16.0); White Blood Count 7.1 X10*3/uL (4.8-10.8)
[2025-02-01 06:27] LABS: Anion Gap 9 (12-20); Blood Urea Nitrogen 28 mg/dL (9-16); Calcium 8.3 mg/dL (8.4-10.2); Carbon Dioxide 26 mmol/L (22-29); Chloride 107 mmol/L (96-108); Creatinine Clr Calc Pharmacy 80.7; Estimated Glomerular Filt Rate > 60; Glucose Fasting 106 mg/dL (60-99); Magnesium 1.9 mg/dL (1.6-2.6); Potassium 4.3 mmol/L (3.3-5.1); Sodium 138 mmol/L (135-145)
--- NOTE | 2025-02-01 07:45 | PM.PNORT ---
Subjective Subjective Date of Service: 02/01/25 Interval history: POD1 s/p RTHA Patient is resting in bed comfortably No overnight events Pain is managed No additional complaints Physical Exam Vital Signs: Vital Signs: Last Vital Signs Temp 97.9 F 02/01/25 03:34 Pulse 62 02/01/25 03:34 Resp 18 02/01/25 03:34 BP 111/62 02/01/25 03:34 Pulse Ox 93 02/01/25 03:34 O2 Del Method Room Air 02/01/25 03:34 O2 Flow Rate 2 01/31/25 15:41 BMI result Body Mass Index 25.1 Const: General: cooperative, healthy appearing and no acute distress Resp: Effort & Inspection: normal respiratory effort and able to speak in complete sentences Cardio: Rate: regular rate Peripheral pulses: Peripheral pulses 2+ throughout GI: Palpation (GI): Soft to palpation Skin: Lesions: no lesions Rashes: no rashes Extrem: Other: right hip dressing is c/d/i. Able to dorsi/plantar flex. Calf is supple and nontender. Sensation intact. Pedal pulse intact. Procedures Date of Service Date of Service: 02/01/25 Progress Note: A&P Assessment and plan (1) Status post right hip replacement: Status: Acute Plan Continue pain mgmnt Begin ASA for dvt ppx begin PT/OT for RTHA - WBAT - posterior precautions Dispo planning-Pending PT eval, pain mgmnt Time Spent With Patient Time: Total time managing care of this patient today ____ minutes. Quality Stroke Does the patient have a stroke diagnosis?: No VTE Prior VTE?: No VTE Risk Level:: Medical - moderate - high VTE Device Contraindication: N/A - Device Ordered VTE Drug Contraindication: N/A - Med Ordered
[2025-02-01 08:04] VITALS: BP 118/61; PULSE 66; RESP 17; TEMP 37.6; O2SAT 94
[2025-02-01] MEDS: Aspirin 325 MG TABLET PO (08:10)
[2025-02-01] MEDS: 0.9 % Sodium Chloride Flush 3 ML SYRINGE IVFLUSH (08:11)
[2025-02-01] MEDS: Celecoxib 200 MG CAPSULE PO (08:11)
[2025-02-01] MEDS: Docusate Sodium 100 MG CAPSULE PO (08:11)
[2025-02-01] MEDS: oxyCODONE HCl ER 10 MG TAB.ER.12H PO (08:11)
[2025-02-01 09:11] VITALS: BP 118/61; PULSE 66; O2SAT 94
--- NOTE | 2025-02-01 09:22 | MHC.CM.PN ---
pt lives with is independent will go home with hvns pt has own ride home
--- NOTE | 2025-02-01 10:42 | PM.DS ---
DS: Providers Provider Date of Service: 02/01/25 Date of discharge: 02/01/25 Primary care physician: CLIF Hanley Consults: 01/31/25 17:19 Consult to Hospitalist Routine Comment: Consulting Provider: [facility] Reason For Exam: medical management DS: Diagnosis Discharge Diagnosis (1) Status post right hip replacement: Status: Acute DS: Summary Hospital Course Hospital Course: The patient underwent a successful right total hip arthroplasty, they were transferred to PACU and then to the floor to recover. During their stay, their vitals were stable, afebrile at 99.6. Labs were unremarkable, H/H 10.5/33.4. POD 1 they were started on Aspirin 325mg po bid for DVT ppx, they also received Physical Therapy services. Prior to discharge, their dressing was clean dry and intact, and the plan was to be discharged home with VNA services. Time Attestation Discharge Coordination Time (in mins): 30 Quality: Safe Use of Opioids Does Pt have an Active Cancer Diagnosis on the Problem List?: No Quality: Stroke Does the patient have a stroke diagnosis?: No Physical Exam Vital Signs: Vital Signs: Last Vital Signs Temp 99.6 F 02/01/25 08:04 Pulse 66 02/01/25 09:11 Resp 17 02/01/25 08:04 BP 118/61 02/01/25 09:11 Pulse Ox 94 02/01/25 09:11 O2 Del Method Room Air 02/01/25 08:04 O2 Flow Rate 2 01/31/25 15:41 BMI result Body Mass Index 25.1 Const: General: cooperative, healthy appearing and no acute distress Resp: Effort & Inspection: normal respiratory effort and able to speak in complete sentences Cardio: Rate: regular rate Peripheral pulses: Peripheral pulses 2+ throughout GI: Palpation (GI): Soft to palpation Skin: Lesions: no lesions Rashes: no rashes Extrem: Other: right hip dressing is c/d/i. Able to dorsi/plantar flex. Calf is supple and nontender. Sensation intact. Pedal pulse intact. DS: Data Data Completed and Pending Completed studies during hospitalization [Text1]: Procedures Dilation of Right Ureter with Intraluminal Device, Via Natural or Artificial Opening Endoscopic (11/29/22) Drainage of Right Kidney with Drainage Device, Percutaneous Approach (06/04/23) Extirpation of Matter from Bladder, Via Natural or Artificial Opening Endoscopic (11/29/22) Extirpation of Matter from Right Ureter, Via Natural or Artificial Opening Endoscopic (11/29/22) Fluoroscopy of Right Kidney, Ureter and Bladder using Low Osmolar Contrast (11/29/22) Insertion of Infusion Device into Right Basilic Vein, Percutaneous Approach (11/29/22) Insertion of Infusion Device into Superior Vena Cava, Percutaneous Approach (06/04/23) Ultrasonography of Superior Vena Cava, Guidance (06/04/23) Pending studies at discharge: Pending at discharge 01/31/25 11:29 Surgical [PTH] Routine Labs on day of discharge: Laboratory Results - last 24 hr 02/01/25 05:31 WBC 7.1 RBC 4.21 L Hgb 10.5 L Hct 33.4 L MCV 79.3 L MCH 24.9 L MCHC 31.4 RDW 16.6 H Plt Count 226 D MPV 10.3 Immature Gran % (Auto) 0.3 Neut % (Auto) 70.9 Lymph % (Auto) 16.1 L [place] % (Auto) 11.0 Eos % (Auto) 1.1 Baso % (Auto) 0.6 Lymph # (Auto) 1.1 L [place] # (Auto) 0.8 Eos # (Auto) 0.1 Baso # (Auto) 0.0 Abs Immat Gran (auto) 0.02 Absolute Neuts (auto) 5.0 Absolute Nucleated RBC 0.000 Nucleated RBC % (auto) 0.0 Sodium 138 Potassium 4.3 Chloride 107 Carbon Dioxide 26 Anion Gap 9 L BUN 28 H Creatinine 0.99 Estim Creat Clear Calc 80.7 Estimated GFR > 60 Fasting Glucose 106 H Calcium 8.3 L D Magnesium 1.9 TSH 0.90 Discharge Plan Discharge Patient Disposition: Home Health Service Referrals: Ruby Egan PA-C [Physician Capacity Planner] - 02/16/25 2:45 pm Discharge Medications: New acetaminophen 325 mg Tablet 650 mg PO Q6H PRN (Reason: Pain, Mild 1-3,Fever,Headache) 30 Days Qty: 240 0RF aspirin 325 mg Tablet 325 mg PO BID 42 Days Qty: 84 0RF celecoxib 200 mg Capsule 200 mg PO BID 30 Days Qty: 60 0RF docusate sodium 100 mg Capsule 100 mg PO BID 30 Days Qty: 60 0RF oxycodone 5 mg Tablet 5 mg PO Q4H PRN (Reason: Pain, Moderate(Pain Scale 4-6)) 7 Days Qty: 42 0RF Rx Instructions: Partial Fill upon patient request. Continued (DME) walker Misc See Rx Instructions .MEDSUPPLY Qty: 1 0RF Rx Instructions: Folding Front wheeled walker (DME) Raised toilet seat See Rx Instructions .ROUTE .MEDSUPPLY Qty: 1 0RF Rx Instructions: duration - 99 days (DME) SHOWER CHAIR See Rx Instructions .ROUTE .MEDSUPPLY Qty: 1 0RF Rx Instructions: As directed multivitamin Tablet 1 tab PO DAILY zinc acetate 50 mg (zinc) Capsule 50 mg PO DAILY cholecalciferol (vitamin D3) [Vitamin D3] 50 mcg (2,000 unit) Tablet 100 mcg PO DAILY Discharge Orders: Discharge Order (Routine); Ordered 02/01/25 Ordered By: Ruby Egan Diet: Advance to usual diet Activity on Discharge: Use cane or walker Print Language: [place]
--- NOTE | 2025-02-01 10:45 | W.MHC.F2F ---
Service Date Service Date: 02/01/25 Encounter Date of encounter: 02/01/25 Reasons for Services Signs and symptoms assessed: s/p RTHA Pt. is considered homebound due to recent surgery. Unable to drive, poor balance, poor gait mechanics. Reason for physical therapy: home safety and mobility, therapeutic exercises, restore joint function, gait/transfer training and ADL training Reason for occupational therapy: home safety and mobility, therapeutic exercises, restore joint function, gait/transfer training and ADL training Homebound: Leaving the home is medically contraindicated at this time without the asist of a device and/or another person due th the listed conditions above and below. Reason homebound: unsteady gait / fall risk, leg weakness, pain with ambulation, pain with transfers, poor balance / fall risk and unable to drive Certification: Based on the above findings, I certify that this patient is confined to the home and needs intermittent long-term care, physical therapy and/or speech therapy, or continues to need occupational therapy. The patient is under my care, and I have initiated the establishment of the plan of care. The patient will be followed by a physician who will periodically review the plan of care. Time Spent With Patient Time: Total time managing care of this patient today ____ minutes.
[2025-02-01 11:24] VITALS: BP 100/59; PULSE 83; RESP 18; TEMP 36.9; O2SAT 94
[2025-02-01 14:35] VITALS: BP 100/59; PULSE 83; O2SAT 94
== END 2025-02-01 14:55 | disposition home health service (06) ==
LOC: HO.SSS 06:56 → HO.S3 16:59
PROVIDERS: Nurse Practitioner; Nurse Practitioner Family; Physician Assistant; PCP Nurse Practitioner Family; Visit Provider Orthopaedic Surgery
PROC: (CPT 27130; principal; 2025-01-31 10:40)
DX: M16.11 Unilateral primary osteoarthritis, right hip (principal); R01.1 Cardiac murmur, unspecified; N40.0 Benign prostatic hyperplasia without lower urinary tract symptoms; N41.9 Inflammatory disease of prostate, unspecified; N20.0 Calculus of kidney; Z96.0 Presence of urogenital implants; R00.1 Bradycardia, unspecified; I44.0 Atrioventricular block, first degree; Z86.14 Personal history of Methicillin resistant Staphylococcus aureus infection; Z79.899 Other long term (current) drug therapy; Z98.890 Other specified postprocedural states; Z87.891 Personal history of nicotine dependence
CPT/HCPCS: 27130; 36415; 72170; 80048; 83735; 84443; 85025; 86850; 86900; 86901; 87640; 87641; 88304; 88311; 93005; 97110; 97161; 97166; C1776; J0131; J0330; J0690; J1171; J2250; J2405; J2704; J2795; J3010; J7120

== ENCOUNTER → 2025-01-31 06:56 | Outpatient (BNV) | payer OTHER, SELFPAY | PROVIDERS: PCP Nurse Practitioner Family; Visit Provider Orthopaedic Surgery | DX: M16.11 Unilateral primary osteoarthritis, right hip (principal) | CPT/HCPCS: 27130 ==

== ENCOUNTER → 2025-01-31 06:56 | Outpatient (BNV) | payer OTHER, SELFPAY | PROVIDERS: PCP Nurse Practitioner Family; Visit Provider Nurse Practitioner Family | DX: Z96.641 Presence of right artificial hip joint (principal) | CPT/HCPCS: 99223 ==

== ENCOUNTER → 2025-01-31 13:11 | Outpatient (BNV) | payer OTHER, SELFPAY | PROVIDERS: PCP Nurse Practitioner Family; Visit Provider Radiology Diagnostic Radiology | DX: M25.451 Effusion, right hip (principal) | CPT/HCPCS: 72170 ==

== ENCOUNTER → 2025-01-31 19:53 | Outpatient (BNV) | payer OTHER, SELFPAY | PROVIDERS: PCP Nurse Practitioner Family; Visit Provider Internal Medicine Cardiovascular Disease | DX: I44.0 Atrioventricular block, first degree (principal); I45.10 Unspecified right bundle-branch block | CPT/HCPCS: 93010 ==

== ENCOUNTER 2025-02-16 09:09 | Outpatient (REF) | payer OTHER, SELFPAY ==
--- NOTE | ~2025-02-16 | XR_ITS ---
CLINICAL HISTORY: M25.559 - Pain in unspecified hip Pelvis one view Comparison: 01/31/2025 Findings: No acute fracture or dislocation identified. Right hip prosthesis demonstrates normal alignment. Surgical janett lateral to right hip. Degenerative change in left hip joint. Impression: Status post right hip prosthesis placement No acute bony abnormality This document has been electronically signed by: Spenser Tesfaye MD on 02/16/2025 22:07:44
== END 2025-02-16 09:10 | disposition home or self-care (01) ==
LOC: HO.HOSX 09:09
PROVIDERS: Visit Provider Physician Assistant
DX: M25.551 Pain in right hip (principal); Z96.641 Presence of right artificial hip joint; Z48.02 Encounter for removal of sutures
CPT/HCPCS: 72170

== ENCOUNTER 2025-02-16 14:48 | Outpatient (AMB) | payer OTHER, SELFPAY ==
--- NOTE | 2025-02-16 14:59 | A.OFFVIS_ITS ---
Intake Visit Reasons: TMOOF:2WKPO: R TEO w/NE 01/31/25 Intake Note: Sancho is a 70 year old male who presents today for a post op appointment s/p right total hip arthroplasty 01/31/25 NE. Patient states pain 4/5 out of 10. He states that only talking ibuprofen to help with the pain. Next appt. 03/09/25 time: 13:30 w/ NE (6wk) Allergies No Known Allergies Allergy (Verified 02/16/25 15:01) HPI HPI TMOOF:2WKPO: R TEO w/NE 01/31/25: Details: Mr. Padilla this is a 70-year-old male who presents to the office today for routine follow-up status post right total hip arthroplasty performed on 01/31/[address] Decker. Patient states that he is doing very well. He is using a cane to assist with ambulation. He has been attending physical therapy through the [facility] at home. He transitions to outpatient physical therapy on 02/17/2025. No additional complaints. [facility] Medical History Osteoarthritis History of postoperative nausea and vomiting Coagulase negative Staphylococcus bacteremia (~2022) Hydronephrosis concurrent with and due to calculi of kidney and ureter Myxomatous mitral valve Kidney stones (2022) Pyelonephritis MSSA bacteremia (~2022) Bladder stones Acute kidney injury (2022) Ureteral stent present BPH (benign prostatic hyperplasia) Detached retina Hernia Surgical History Hx of tonsillectomy Hx of left inguinal hernia repair Hx of right inguinal hernia repair (11/16/24) H/O colonoscopy Status post ablation of incompetent vein using laser (07/25/22) History of cystoscopy History of prostate surgery Hx of varicose vein ligation (~11/2023) History of eye surgery Family History Sister Melanoma Social History Household Members: Spouse Household Members Other:: and step son Housing: House Are you a primary gericare aide teacher to a significant other at home: No Do you presently have visiting nurse or other home services: No Alcohol intake: former Comment: medicated with po tylenol Patient Tobacco Use Status: Former Tobacco user Tobacco use type: Cigarette e-Cigarette/Vaping Use: Former Use Second Hand Smoke Exposure: No Advance Directives Date on File: 12/01/22 service: No Current occupational status: employed 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 [place] intact. No surrounding erythema or drainage. No signs of infection. Patient is able to move from a seated to a standing position without difficulty. Good internal external rotation. NVI. Assessment & Plan Assessment & Plan (1) Status post right hip replacement: Code(s): Z96.641 - Presence of right artificial hip joint Category: Surgical Plan Mr. Padilla this is a 70-year-old male who presents to the office today for routine follow-up status post right total hip arthroplasty performed on 01/31/[address] Decker. Patient states that he is doing very well. He is using a cane to assist with ambulation. He has been attending physical therapy through the [facility] at home. He transitions to outpatient physical therapy on 02/17/2025. No additional complaints. While in the office today, janett were removed and sutures were applied. Patient will continue on anticoagulation of aspirin for 6 weeks postoperatively. He will attend outpatient physical therapy at [facility]. He will follow up in [address] Decker, sooner if needed. X-rays of the pelvis which were obtained while in the office today and were reviewed by me, Ruby Egan PA-C, revealed intact right total hip arthroplasty with satisfactory alignment. Orders: Orders XR pelvis 1-2V 02/16/25 M25.559 - Pain in unspecified hip Coding Level of Care Code Global (37836) Diagnoses Status post right hip replacement Z96.641
== END 2025-02-16 15:21 | disposition home or self-care (01) ==
LOC: HO.HOS 14:49
PROVIDERS: PCP Nurse Practitioner Family; Visit Provider Physician Assistant
DX: Z96.641 Presence of right artificial hip joint (principal)
CPT/HCPCS: 99024

== ENCOUNTER → 2025-02-16 14:52 | Outpatient (BNV) | payer OTHER, SELFPAY | PROVIDERS: Visit Provider Radiology Diagnostic Radiology | DX: M16.12 Unilateral primary osteoarthritis, left hip (principal) | CPT/HCPCS: 72170 ==

== ENCOUNTER 2025-03-09 12:56 | Outpatient (REF) | payer OTHER, SELFPAY ==
--- NOTE | ~2025-03-09 | XR_ITS ---
EXAMINATION: XR PELVIS 1-2 VIEWS HISTORY: M25.559 - Pain in unspecified hip COMPARISON: Comparison is made with the prior examination dated 02/16/2025. FINDINGS: Two AP views of the pelvis is submitted. The patient is status post right total hip arthroplasty. The orthopedic elements are in anatomic alignment. There is no radiographic evidence of loosening. There is no fracture or dislocation. There is mild narrowing of the left hip joint. The soft tissues are unremarkable. XR/XR pelvis 1-2V IMPRESSION: Status post right total hip arthroplasty. Electronically signed by: Chetan Howard MD 03/09/2025 01:56 PM EDT
== END 2025-03-09 12:57 | disposition home or self-care (01) ==
LOC: HO.HOSX 12:56
PROVIDERS: Visit Provider Orthopaedic Surgery
DX: M25.551 Pain in right hip (principal); Z96.641 Presence of right artificial hip joint
CPT/HCPCS: 72170

== ENCOUNTER 2025-03-09 13:16 | Outpatient (AMB) | payer OTHER, SELFPAY ==
--- NOTE | 2025-03-09 13:34 | MHC.OFFVIS ---
Intake Visit Reasons: 6WKPO: R TEO w/NE 01/31/25 Intake Note: Sancho is a 70 year old male who presents today for a post op appointment s/p right total hip arthroplasty 01/31/25. Patient is doing very well, he is not taking anything for his pain. He continues to work with physical therapy. Allergies No Known Allergies Allergy (Verified 03/09/25 13:37) HPI HPI 6WKPO: R TEO w/NE 01/31/25: Details: Sancho is a 70 year old male who presents today for a post op appointment s/p right total hip arthroplasty 01/31/25. Patient is doing very well, he is not taking anything for his pain. He continues to work with physical therapy. REPLACED BY [facility] Medical History Osteoarthritis History of postoperative nausea and vomiting Coagulase negative Staphylococcus bacteremia (~2022) Hydronephrosis concurrent with and due to calculi of kidney and ureter Myxomatous mitral valve Kidney stones (2022) Pyelonephritis MSSA bacteremia (~2022) Bladder stones Acute kidney injury (2022) Ureteral stent present BPH (benign prostatic hyperplasia) Detached retina Hernia Surgical History Hx of tonsillectomy Hx of left inguinal hernia repair Hx of right inguinal hernia repair (11/16/24) H/O colonoscopy Status post ablation of incompetent vein using laser (07/25/22) History of cystoscopy History of prostate surgery Hx of varicose vein ligation (~11/2023) History of eye surgery Family History Sister Melanoma Social History Household Members: Spouse Household Members Other:: and step son Housing: House Are you a primary wound care technician to a significant other at home: No Do you presently have visiting nurse or other home services: No Alcohol intake: former Comment: medicated with po tylenol Patient Tobacco Use Status: Former Tobacco user Tobacco use type: Cigarette e-Cigarette/Vaping Use: Former Use Second Hand Smoke Exposure: No Advance Directives Date on File: 12/01/22 service: No Current occupational status: employed 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 Walking comfortably. No antalgia. No Trendelenburg gait. No pain with hip range of motion. Results Reviewed Results Reviewed: I personally reviewed relevant radiographs. Right TEO in expected post operative position with no hardware complications or evidence of loosening Assessment & Plan Assessment & Plan (1) Status post right hip replacement: Code(s): Z96.641 - Presence of right artificial hip joint Category: Surgical Plan: Status post right hip replacement doing well.May drive at 8 weeks postop continue weight-bearing as tolerated. May drive at 8 weeks postop. Follow up 6 weeks. May discontinue ASA. Orders: Orders XR pelvis 1-2V 03/09/25 M25.559 - Pain in unspecified hip Coding Level of Care Code Global (66465) Diagnoses Status post right hip replacement Z96.641
== END 2025-03-09 13:46 | disposition home or self-care (01) ==
LOC: HO.HOS 13:17
PROVIDERS: PCP Nurse Practitioner Family; Visit Provider Orthopaedic Surgery
DX: Z96.641 Presence of right artificial hip joint (principal)
CPT/HCPCS: 99024

== ENCOUNTER → 2025-03-09 13:20 | Outpatient (BNV) | payer OTHER, SELFPAY | PROVIDERS: Visit Provider Radiology Diagnostic Radiology | DX: M25.551 Pain in right hip (principal); Z96.641 Presence of right artificial hip joint | CPT/HCPCS: 72170 ==

== ENCOUNTER 2025-03-28 09:53 | Outpatient (AMB) | payer OTHER, SELFPAY ==
--- NOTE | 2025-03-28 10:01 | A.OFFVIS_ITS ---
Vital Signs 03/28/25 10:07 Weight 193 lb BP 124/77 Blood Pressure Location Rt brachial Position Sitting Pulse 70 Intake Visit Reasons: post op Intake Note: Patient scheduled today's appointment c/o: Patient c/o: reports incision healed well. Surgical site tender to touch. [facility]~ 11-16-2024 Sustainable Products Marketing Manager Required: No Accompanied by: Self / Same As Patient Allergies No Known Allergies Allergy (Verified 03/28/25 10:07) HPI HPI post op: Details: Doing well. Some mild pain to touch. Appetite and bowel function baseline. Had right hip replacement 610, doing well mobility increasing. [facility] Medical History Osteoarthritis History of postoperative nausea and vomiting Coagulase negative Staphylococcus bacteremia (~2022) Hydronephrosis concurrent with and due to calculi of kidney and ureter Myxomatous mitral valve Kidney stones (2022) Pyelonephritis MSSA bacteremia (~2022) Bladder stones Acute kidney injury (2022) Ureteral stent present BPH (benign prostatic hyperplasia) Detached retina Hernia Surgical History Hx of tonsillectomy Hx of left inguinal hernia repair Hx of right inguinal hernia repair (11/16/24) H/O colonoscopy Status post ablation of incompetent vein using laser (07/25/22) History of cystoscopy History of prostate surgery Hx of varicose vein ligation (~11/2023) History of eye surgery Family History Sister Melanoma Social History Household Members: Spouse Household Members Other:: and step son Housing: House Are you a primary health care manager to a significant other at home: No Do you presently have visiting nurse or other home services: No Alcohol intake: former Comment: medicated with po tylenol Patient Tobacco Use Status: Former Tobacco user Tobacco use type: Cigarette e-Cigarette/Vaping Use: Former Use Second Hand Smoke Exposure: No Advance Directives Date on File: 12/01/22 service: No Current occupational status: employed 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 - [employer] Cognitive needs: No Hearing needs: No Vision needs: Yes Review of Systems Const All systems reviewed & are unremarkable except as noted in HPI and below Physical Exam Vital Signs: Last Vital Signs Pulse 70 03/28/25 10:07 BP 124/77 03/28/25 10:07 Const General: comfortable and no acute distress Orientation/consciousness: patient oriented x3 Resp Effort & Inspection: normal respiratory effort and able to speak in complete sentences GI Other: Incision site healing well no surrounding erythema, nontender, no recurrence with Valsalva Inspection: No distended Palpation (GI): Soft to palpation and nontender Neuro General: patient oriented x3 Assessment & Plan Assessment & Plan (1) S/P inguinal hernia repair: Code(s): Z98.890 - Other specified postprocedural states; Z87.19 - Personal history of other diseases of the digestive system Category: Medical Plan 70-year-old male following up for postop status post right inguinal hernia repair on 11/16/2024, patient doing well had right hip replacement on 01/31, states recovery going well. Endorses mild pain at the incision site of the hernia to the touch but describes this is very mild. On exam the incision appears to be healing well there was no concern for infection at this time. There was no recurrence with Valsalva on exam. At this point from a general surgery standpoint we have no restrictions, though I am assuming that the patient has activity limitations from an orthopedic standpoint. Patient no longer requiring follow up with General surgery. He can follow up as needed for any concerns in the future Coding Level of Care Code Global (24837) Diagnoses S/P inguinal hernia repair Z98.890; Z87.19
[2025-03-28 10:07] VITALS: BP 124/77; PULSE 70
--- OUTSIDE RECORDS SUMMARY | 2025-03-28 10:20 | XMS_ITS ---
Author Name [facility] Organization Unknown Care Team Organization Name Specialty Phone Email Start Date End Da sanjay [facility] Carissa [facility] 07/01/202204/11
== END 2025-03-28 10:12 | disposition home or self-care (01) ==
LOC: HO.HGS 09:54
PROVIDERS: PCP Nurse Practitioner Family
DX: Z09 Encounter for follow-up examination after completed treatment for conditions other than malignant neoplasm (principal); Z87.19 Personal history of other diseases of the digestive system
CPT/HCPCS: 99212

== ENCOUNTER 2025-04-17 09:04 | Outpatient (REF) | payer OTHER, SELFPAY ==
[2025-04-17 09:26] LABS: MANUAL DIFF FLAG NO
[2025-04-17 09:51] LABS: Hematocrit 43.9 % (42.0-52.0); Hemoglobin 13.8 g/dl (14.0-18.0); Imm Gran Abs Auto 0.02 X10*3/uL (0.00-0.03); Imm Gran Pct Auto 0.3 % (0.0-0.4); Lymphocytes Absolute Auto 1.7 X10*3/uL (1.2-4.9); Mean Corpuscular HGB Conc 31.4 g/dl (31.0-36.0); Mean Corpuscular Hemoglobin 24.5 pg (27.0-33.0); Mean Corpuscular Volume 78.0 fL (80.0-98.0); NRBC Abs Auto 0.000 X10*3/uL (0.0-0.012); NRBC Pct Auto 0.0 /100WBC (0.0-0.2); Platelet Count 283 X10*3/uL (160-400); Red Blood Count 5.63 X10*6/uL (4.60-5.80); White Blood Count 6.8 X10*3/uL (4.8-10.8)
[2025-04-17 10:26] LABS: Alanine Aminotransferase 23 U/L (0-40); Albumin Level 4.4 g/dL (3.5-5.0); Alkaline Phosphatase 72 U/L (39-117); Anion Gap 12 (12-20); Aspartate Amino Transferase 23 U/L (5-37); Blood Urea Nitrogen 22 mg/dL (9-16); Calcium 9.6 mg/dL (8.4-10.2); Carbon Dioxide 24 mmol/L (22-29); Chloride 107 mmol/L (96-108); Estimated Glomerular Filt Rate > 60; Iron 167 mcg/dL (45-160); Percent Iron Saturation 46 % (15-50); Potassium 4.4 mmol/L (3.3-5.1); Sodium 139 mmol/L (135-145); Total Iron Binding Capacity 363 mcg/dL (228-428); Total Protein 7.2 g/dL (6.5-8.0); Unsaturated Iron Binding 196 ug/dL
[2025-04-17 10:42] LABS: Ferritin 28 ng/mL (20-250)
== END 2025-04-17 09:05 | disposition home or self-care (01) ==
LOC: HO.LAB 09:04
PROVIDERS: PCP Nurse Practitioner Family; Visit Provider Nurse Practitioner Family
DX: D64.9 Anemia, unspecified (principal)
CPT/HCPCS: 36415; 80053; 82728; 83540; 85025

== ENCOUNTER 2025-04-21 09:00 | Outpatient (AMB) | payer OTHER, SELFPAY ==
--- NOTE | 2025-04-21 09:18 | A.OFFVIS_ITS ---
Vital Signs 04/21/25 09:21 Height 6 ft 1 in Weight 190 lb BMI 25.1 Intake Visit Reasons: PO - right TEO 01/31/25 NE Intake Note: Sancho is a 70 year old male who presents today for a post operative appointment status post right total hip arthroplasty 01/31/25. AT his last visit with Dr. Decker he was advised to follow up in 6 weeks. Patient report he is doing well, he continues to attend therapy and perform at home exercises. He would like to discuss his return to work. Allergies No Known Allergies Allergy (Verified 04/21/25 09:24) Medication List - Last Reconciled 04/21/25 by Vance Ramirez PA-C acetaminophen 650 mg (2 x 325 mg) PO Q6H PRN 30 days acetaminophen 650 mg (2 x 325 mg) PO Q6H PRN 30 days aspirin 325 mg PO BID 42 days celecoxib 200 mg PO BID 30 days cholecalciferol (vitamin D3) (Vitamin D3) 100 mcg PO DAILY docusate sodium 100 mg PO BID 30 days multivitamin 1 tab PO DAILY [Raised toilet seat duration - 99 days] [SHOWER CHAIR As directed] walker Folding Front wheeled walker zinc acetate 50 mg PO DAILY HPI HPI PO - right TEO 01/31/25 NE: Details: 70-year-old gentleman returns to the office today approximately 3 months postop right total hip arthroplasty with Dr. Decker on 01/31/2025. The patient is doing well and continues to work with physical therapy. He continues to remain out of work but has no concerns today. [facility] Medical History (Reviewed 03/09/25 @ 13:37 by Viky Milan [facility]) Osteoarthritis History of postoperative nausea and vomiting Coagulase negative Staphylococcus bacteremia (~2022) Hydronephrosis concurrent with and due to calculi of kidney and ureter Myxomatous mitral valve Kidney stones (2022) Pyelonephritis MSSA bacteremia (~2022) Bladder stones Acute kidney injury (2022) Ureteral stent present BPH (benign prostatic hyperplasia) Detached retina Hernia Surgical History Hx of tonsillectomy Hx of left inguinal hernia repair Hx of right inguinal hernia repair (11/16/24) H/O colonoscopy Status post ablation of incompetent vein using laser (12/02/22) History of cystoscopy History of prostate surgery Hx of varicose vein ligation (~11/2023) History of eye surgery Family History Sister Melanoma Social History Household Members: Spouse Household Members Other:: and step son Housing: House Are you a primary personal care attendant to a significant other at home: No Do you presently have visiting nurse or other home services: No Alcohol intake: former Comment: medicated with po tylenol Patient Tobacco Use Status: Former Tobacco user Tobacco use type: Cigarette e-Cigarette/Vaping Use: Former Use Second Hand Smoke Exposure: No Advance Directives Date on File: 12/01/22 service: No Current occupational status: employed 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 Walking comfortably. No antalgia. No Trendelenburg gait. No pain with hip range of motion. Results Reviewed Results Reviewed: X-rays of the right hip obtained in the office today and reviewed by me show intact hip prosthesis Assessment & Plan Assessment & Plan (1) Status post right hip replacement: Code(s): Z96.641 - Presence of right artificial hip joint Category: Surgical Plan: The patient will continue with activities as tolerated. We did review posterior hip precautions. He will return to work part-time beginning 05/08. A prescription for antibiotics was sent to the pharmacy for dental prophylaxis. He will see us back at his 1 year dario from his surgery otherwise contact us sooner if needed. Orders: Orders XR hip RT min 2V Today M25.551 - Pain in right hip Medications: New amoxicillin take 4 capsules 1 hr prior to dental procedure 2,000 mg (4 x 500 mg) PO ONCE 4 tabs 3RF 1 day Coding Level of Care Code Global (61843) Diagnoses Status post right hip replacement Z96.641
[2025-04-21 09:21] VITALS: BMI 25.1
== END 2025-04-21 09:39 | disposition home or self-care (01) ==
LOC: HO.HOS 09:02
PROVIDERS: Visit Provider Physician Assistant
DX: Z96.641 Presence of right artificial hip joint (principal)
CPT/HCPCS: 99024

== ENCOUNTER → 2025-04-21 09:07 | Outpatient (BNV) | payer OTHER, SELFPAY | PROVIDERS: Visit Provider Radiology Diagnostic Radiology | DX: M25.551 Pain in right hip (principal); Z96.641 Presence of right artificial hip joint | CPT/HCPCS: 73502 ==

== ENCOUNTER 2025-04-21 09:50 | Outpatient (REF) | payer OTHER, SELFPAY ==
--- NOTE | ~2025-04-21 | XR_ITS ---
EXAMINATION: XR HIP 2 OR MORE VIEWS RIGHT HISTORY: M25.551 - Pain in right hip COMPARISON: Comparison is made with the prior examination dated 03/09/2025. FINDINGS: A single AP view of the pelvis and 2 views of the right hip are submitted. The patient is again noted to be status post right total hip arthroplasty. The orthopedic elements are in anatomic alignment. There is no radiographic evidence of loosening. There is no fracture or dislocation. The soft tissues are unremarkable. XR/XR hip RT min 2V IMPRESSION: Status post right total hip arthroplasty. Electronically signed by: Chetan Howard MD 04/21/2025 09:33 AM EDT
== END 2025-04-21 09:51 | disposition home or self-care (01) ==
LOC: HO.HOSX 09:50
PROVIDERS: Visit Provider Physician Assistant
DX: Z47.1 Aftercare following joint replacement surgery (principal); M25.551 Pain in right hip; Z96.641 Presence of right artificial hip joint
CPT/HCPCS: 73502

== ENCOUNTER 2025-05-10 13:56 | Outpatient (RCR) | payer OTHER, SELFPAY ==
--- NOTE | 2025-02-17 09:52 | MHC.PT.EP ---
[facility] [place] Office [place] Office [place] Office [address] Indio Watson [address] [phone] F: [phone] F: [phone] F: [phone] F: [phone] Physical Therapy Plan of Care Date of Evaluation: 02/17/25 Date of Surgery: 01/31/25 Diagnosis: R TEO 01/31/25 (RL) Assessment: pt is a 70 y/o male presenting to physical therapy w/ referring diagnosis of presence of right artificial hip joint. Impairments include pain, decreased range of motion, decreased strength, impaired functional mobility, impaired postural awareness, and altered ambulation mechanics. pt is a good candidate for skilled PT due to age, potential remediation of impairments, typical disease/condition progression and prognosis, comorbidities, and motivation. pt would benefit from skilled PT intervention to provide a tailored strengthening and stretching exercise program, functional training, gait training, postural re-training, neuromuscular re-education, modalities as needed for pain, equipment safety demonstration. Frequency and Duration: The patient will be seen 2x/wk for 8 wks Short Term Goals: pt will be I w/ HEP to promote self-management of condition. pt will improve R hip flex strength by 1 MMT grade to promote ease in stair navigation. Litigation Manager Goals: pt will report a statistically significant improvement in self-reported outcome measure, LEFI, to promote return to PLOF. pt will ascend/descend 4, 8 stairs to promote ease in entering/exiting work vehcile. pt will push/pull 100# cart to promote ease in pushing person in wheelchair for work-related tasks. Treatment Plan: Modalities to reduce pain, spasms and effusion. Manual therapy to restore motion and function. Therapeutic exercise to improve strength and flexibility. Neuromuscular re-education for posture and balance. Therapeutic activities to return to functional activities of daily living. Electronically signed by: Chelsie Trinidad PT, DPT Please sign and return to therapist. Thank you for your referral.
--- NOTE | 2025-05-16 08:29 | MHC.PT.DC ---
[facility] [place] Office [place] Office [place] Office [address] Indio Watson [address] [phone] F: [phone] F: [phone] F: [phone] F: [phone] Physical Therapy Discharge Report Diagnosis: R TEO 01/31/25 (RL) Date of Surgery: 01/31/25 Date of Evaluation: 02/17/25 Date of Discharge: 05/16/25 Treatments to Date: 20 Cancellations to Date: 1 No Shows to Date: 0 Discharge Status: Improved Function Independent with HEP Discharge Summary: The patient has returned to work with no self-reported limitations. He is independent with his home exercise program. He is discharged from this physical therapy plan of care. Electronically signed by: Chelsie Trinidad PT, DPT Please sign and return to therapist. Thank you for your referral.
== END 2025-05-16 08:29 | disposition home or self-care (01) ==
LOC: HO.PT 13:56
PROVIDERS: PCP Nurse Practitioner Family; Visit Provider Physician Assistant
DX: Z47.1 Aftercare following joint replacement surgery (principal); Z96.641 Presence of right artificial hip joint
CPT/HCPCS: 97110; 97112; 97162; 97530

== ENCOUNTER 2025-06-23 08:19 | Outpatient (REF) | payer OTHER, SELFPAY ==
[2025-06-23 09:46] LABS: Prostate Specific Antigen 29.45 ng/mL (<0.05-4.0)
== END 2025-06-23 08:20 | disposition home or self-care (01) ==
LOC: HO.LAB 08:19
PROVIDERS: PCP Nurse Practitioner Family; Visit Provider Urology
DX: N40.1 Benign prostatic hyperplasia with lower urinary tract symptoms (principal); N13.8 Other obstructive and reflux uropathy; N30.00 Acute cystitis without hematuria; N20.0 Calculus of kidney; Z13.89 Encounter for screening for other disorder; Z12.5 Encounter for screening for malignant neoplasm of prostate
CPT/HCPCS: 36415; 51798; 81003; 84153; 87086; 87088

== ENCOUNTER 2025-06-23 08:34 | Outpatient (AMB) | payer OTHER, SELFPAY ==
--- NOTE | 2025-06-23 08:38 | MHC.OFFVIS ---
Intake Visit Reasons: 6M UA Check(Elevated PSA) Intake Note: Patient is present for PVR/UA Follow Up Urology Med: None Antibiotic Allergy: None Blood Thinner: Aspirin PVR: 133ml Materials Management Manager Required: No Accompanied by: Self / Same As Patient Allergies No Known Allergies Allergy (Verified 06/23/25 08:41) HPI Comments Details: Sancho is a pleasant male. He is a patient of Dr. Davis. 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 Prostatitis Due to Kathleen albicans. Infectious Diseases in Clinical Practice 14(4): [id number] Cystoscopy - 12/16 normal Nephrolithiasis Right renal stone secondary to stent fragment 07/16 PCN required Imaging - 07/17 renal ultrasound 5 mm Lower urinary tract symptoms Nocturia resolved and better emptying following procedure 04/14 GreenLight laser prostate, 09/16 GreenLight laser Pathology - BPH, large prostate 200 gm - biopsy negative Previously on finasteride Gross hematuria with urinary tract infection Imaging - 11/12 CT scan large prostate with bladder wall thickening Microbiology - 11/12 Aerococcus urinae - sensitivity per Google search Augmentin PSA 03/14 16, 09/15 11, 03/15 8.4 15%, 08/16 27, 06/17 29 Therapeutic plan - continue to follow [facility] Medical History Osteoarthritis History of postoperative nausea and vomiting Coagulase negative Staphylococcus bacteremia (~2022) Hydronephrosis concurrent with and due to calculi of kidney and ureter Myxomatous mitral valve Kidney stones (2022) Pyelonephritis MSSA bacteremia (~2022) Bladder stones Acute kidney injury (2022) Ureteral stent present BPH (benign prostatic hyperplasia) Detached retina Hernia Surgical History Hx of tonsillectomy Hx of left inguinal hernia repair Hx of right inguinal hernia repair (11/16/24) H/O colonoscopy Status post ablation of incompetent vein using laser (07/25/22) History of cystoscopy History of prostate surgery Hx of varicose vein ligation (~11/2023) History of eye surgery Family History Sister Melanoma Social History Household Members: Spouse Household Members Other:: and step son Housing: House Are you a primary healthcare analyst to a significant other at home: No Do you presently have visiting nurse or other home services: No Alcohol intake: former Comment: medicated with po tylenol Patient Tobacco Use Status: Former Tobacco user Tobacco use type: Cigarette e-Cigarette/Vaping Use: Former Use Second Hand Smoke Exposure: No Advance Directives Date on File: 12/01/22 service: No Current occupational status: employed Current occupation: [employer] Cognitive needs: No Hearing needs: No Vision needs: Yes Review of Systems Const Denies chills and Denies fever(s) Card Reports no additional complaints and Denies syncope Resp Denies cough GI Denies abdominal pain and Denies heartburn Reports as per HPI and Denies change in libido Neuro Denies syncope Psych Denies change in libido Endo Denies change in libido Physical Exam Const General: cooperative, healthy appearing, comfortable and no acute distress Orientation/consciousness: patient oriented x3 HEENT Face and sinus: Yes normal facial exam Mouth: moist mucous membranes Neck Neck: Yes normal visual inspection, Yes full ROM and Yes trachea midline Chest Chest palpation & inspection: normal inspection of the chest Resp Effort & Inspection: normal respiratory effort, able to speak in complete sentences and no respiratory distress GI Inspection: Yes normal to inspection Back/Spine/Pelvis Cervical Spine: normal cervical lordosis Thoracic/Lumbar Spine: thoracic and lumbar spine normal to inspection Skin General skin exam: no rashes or lesions noted Neuro General: patient oriented x3, gait normal, tone normal and moves all extremities Extrem General: Yes normal to inspection and Yes capillary refill normal Office Procedures Post Void Residual Post Residual Void Post Void Residual (PVR): 133 [id number] Void Residual by ultrasound Results AMB Urinalysis, Automated UA Leukoctes 125 David/uL Last Edit by HANNA May on 06/23/25 08:51 UA Nitrite Negative Last Edit by HANNA May on 06/23/25 08:51 UA Urobilinogen 0.2 mg/dL Last Edit by Isaura Ibrahim, RMA on 06/23/25 08:51 UA Protein 15 mg/dL Last Edit by Isaura Ibrahim, RMA on 06/23/25 08:51 UA pH 6.0 Last Edit by Isaura Ibrahim, RMA on 06/23/25 08:51 UA Blood 200 Ulysses/uL Last Edit by Isaura Ibrahim, RMA on 06/23/25 08:51 UA Specific [place] 1.020 Last Edit by Isaura Ibrahim, RMA on 06/23/25 08:51 UA Ketone Negative Last Edit by Isaura Ibrahim, RMA on 06/23/25 08:51 UA Bilirubin 0 mg/dL Last Edit by Isaura Ibrahim, RMA on 06/23/25 08:51 UA Glucose 0 mg/dL Last Edit by Isaura Ibrahim, RMA on 06/23/25 08:51 Results Reviewed Results Reviewed: Laboratory Last Values Urine pH (Auto) 6.0 06/23/25 08:50 Specific [place] (Auto) 1.020 06/23/25 08:50 Urine Protein (Auto) 15 mg/dL 06/23/25 08:50 Glucose (UA)(Auto) 0 mg/dL 06/23/25 08:50 Urine Ketones (Auto) Negative 06/23/25 08:50 Urine Blood (Auto) 200 [place]/uL 06/23/25 08:50 Urine Nitrite (Auto) Negative 06/23/25 08:50 Urine Bilirubin (Auto) 0 mg/dL 06/23/25 08:50 Urine Urobilinogen (Auto) 0.2 mg/dL 06/23/25 08:50 Leukocyte Esterase (Auto) 125 David/uL 06/23/25 08:50 Assessment & Plan Assessment & Plan (1) BPH w urinary obs/LUTS: Code(s): N40.1 - Benign prostatic hyperplasia with lower urinary tract symptoms; N13.8 - Other obstructive and reflux uropathy Category: Medical (2) Urinary tract infection: Code(s): N39.0 - Urinary tract infection, site not specified Category: Medical Qualifiers: Hematuria presence: without hematuria Urinary tract infection type: acute cystitis Qualified Code(s): N30.00 - Acute cystitis without hematuria Plan Six-month follow-up renal ultrasound Orders: Orders Prostate Specific Antigen Today N13.8 - Other obstructive and reflux uropathy, N40.1 - Benign prostatic hyperplasia with lower urinary tract symptoms AMB Post Void Residual by ultrasound Today N13.8 - Other obstructive and reflux uropathy, N40.1 - Benign prostatic hyperplasia with lower urinary tract symptoms Urine Culture Today N30.00 - Acute cystitis without hematuria AMB Urinalysis Automated Today Z13.9 - Encounter for screening, unspecified US renal BI 6 Months N20.0 - Calculus of kidney Patient Instructions: This note is constructed using voice recognition software. While every effort has been made to ensure accuracy quality control industrial engineer errors may have been included. Imaging studies, laboratory and physical exam results were discussed and reviewed in detail. No major barriers to patient understanding were identified. An opportunity to ask questions regarding the treatment plan was provided. All questions were answered. The patient expressed understanding and agreement with the above treatment plan. The patient is aware they should contact our office by phone for worsening of their current condition or the appearance of new urologic symptoms. Compliance is encouraged with any medications and followup testing that is ordered. It is a privilege to participate in the urologic care of your patient. If you have any questions or concerns regarding treatment for the above conditions, or other urologic issues, please do not hesitate to contact me. The office telephone contact is [phone]. Sincerely, Dr Rod Phillips MD, [facility] - Urology Compassionate Specialist Care for the Genitourinary System Coding Level of Care Code Est Pt Level 3 (41894) Complex EM visit Add On G2211 Diagnoses BPH w urinary obs/LUTS N40.1; N13.8 Acute cystitis without hematuria N30.00 Hematuria presence: without hematuria Urinary tract infection type: acute cystitis CPT Codes Post Residual Void - PVR CPT Code: 09673-Zcle Void Residual by ultrasound ([id number])
== END 2025-06-23 09:01 | disposition home or self-care (01) ==
LOC: HO.HUSH 08:35
PROVIDERS: PCP Nurse Practitioner Family; Visit Provider Urology
DX: N40.1 Benign prostatic hyperplasia with lower urinary tract symptoms (principal); N13.8 Other obstructive and reflux uropathy; N30.00 Acute cystitis without hematuria; Z13.9 Encounter for screening, unspecified
CPT/HCPCS: 99213

== ENCOUNTER 2025-07-08 09:10 | Outpatient (REF) | payer OTHER, SELFPAY ==
[2025-07-08 11:38] LABS: MANUAL DIFF FLAG NO
[2025-07-08 11:50] LABS: Hematocrit 45.0 % (42.0-52.0); Hemoglobin 14.5 g/dl (14.0-18.0); Imm Gran Abs Auto 0.01 X10*3/uL (0.00-0.03); Imm Gran Pct Auto 0.2 % (0.0-0.4); Lymphocytes Absolute Auto 1.6 X10*3/uL (1.2-4.9); Mean Corpuscular HGB Conc 32.2 g/dl (31.0-36.0); Mean Corpuscular Hemoglobin 25.9 pg (27.0-33.0); Mean Corpuscular Volume 80.4 fL (80.0-98.0); NRBC Abs Auto 0.000 X10*3/uL (0.0-0.012); NRBC Pct Auto 0.0 /100WBC (0.0-0.2); Platelet Count 266 X10*3/uL (160-400); Red Blood Count 5.60 X10*6/uL (4.60-5.80); White Blood Count 6.0 X10*3/uL (4.8-10.8)
[2025-07-08 12:08] LABS: Appearance Urine Turbid; Glucose Urine UA Negative (Negative); PH 6.5 (5.0-9.0); Specific Gravity - Urine 1.020 (1.005-1.025); UMIC TRIGGER UACC YES
[2025-07-08 12:11] LABS: UACC Culture Trigger YES
[2025-07-08 12:15] LABS: Alanine Aminotransferase 24 U/L (0-40); Albumin Level 4.3 g/dL (3.5-5.0); Alkaline Phosphatase 64 U/L (39-117); Anion Gap 11 (12-20); Aspartate Amino Transferase 26 U/L (5-37); Blood Urea Nitrogen 26 mg/dL (9-16); Calcium 9.5 mg/dL (8.4-10.2); Carbon Dioxide 26 mmol/L (22-29); Chloride 107 mmol/L (96-108); Cholesterol 200 mg/dL (<200); Estimated Glomerular Filt Rate > 60; HDL Cholesterol 66 mg/dL (>40); Potassium 4.8 mmol/L (3.3-5.1); Sodium 139 mmol/L (135-145); Total Protein 7.1 g/dL (6.5-8.0); Triglycerides 54 mg/dL (<150)
== END 2025-07-08 09:11 | disposition home or self-care (01) ==
LOC: HO.HMGCLDS 09:10
PROVIDERS: PCP Nurse Practitioner Family; Visit Provider Nurse Practitioner Family
DX: Z00.00 Encounter for general adult medical examination without abnormal findings (principal); E55.9 Vitamin D deficiency, unspecified; Z13.29 Encounter for screening for other suspected endocrine disorder; Z13.6 Encounter for screening for cardiovascular disorders
CPT/HCPCS: 36415; 80053; 80061; 81001; 81003; 82306; 84443; 85025; 87086

== ENCOUNTER 2025-07-12 10:03 | Outpatient (AMB) | payer OTHER, SELFPAY ==
[2025-07-12 10:06] VITALS: BP 122/80; PULSE 74; RESP 16; TEMP 36.5; O2SAT 99; BMI 26.5
--- NOTE | 2025-07-12 10:06 | A.OFFPC_ITS ---
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 Meat Required: No Accompanied by: Self / Same As Patient Allergies No Known Allergies Allergy (Verified 07/12/25 10:42) Medication List - Last Reconciled 07/12/25 by CLIF Hendrix acetaminophen 650 mg (2 x 325 mg) PO Q6H PRN 30 days acetaminophen 650 mg (2 x 325 mg) PO Q6H PRN 30 days aspirin 325 mg PO BID 42 days cholecalciferol (vitamin D3) (Vitamin D3) 100 mcg PO DAILY multivitamin 1 tab PO DAILY [Raised toilet seat duration - 99 days] [SHOWER CHAIR As directed] walker Folding Front wheeled walker zinc acetate 50 mg PO DAILY Tobacco use date assessed: 07/12/25 Fall risk assessment: No Falls in past year Last assessed Fall Risk: 07/12/25 Dental Screening Dental Screen Date: 07/12/25 Did you have a dental visit in the last 12 months?: Yes Did you have a dental problem in the last 6 months where you did not have access to dental care?: No Was dental information given to patient?: Patient has dentist HPI Annual PE HPI Details History of Present Illness The patient is a 70-year-old male presenting for a physical exam. He reports feeling quite well. His colon screening is up to date, he sees a urologist on a regular basis, and his labs are stable. Health Maintenance - Colon screening is up to date. - The patient sees urology on a regular basis. - Lab results are stable. - The patient is due for vaccinations an d will receive his Tdap today. - Follow-up for another physical exam is scheduled in one year. Social History Review of Systems - Constitutional: Reports feeling quite well. - Cardiovascular: Denies chest pain. - Respiratory: Denies shortness of breat h. - Gastrointestinal: Denies abdominal richard n, blood in stool, constipation, or diarrhea. - Psychiatric: Denies suicidal or homici surjit ideation. Physical Exam General: Cooperative, healthy appearing, comfortable, no acute distress and well developed Orientation: Patient oriented x3 Limitations: No limitations Head: Normal to inspection Ears: Cerumen noted to the left side after ear lavage, TM was easily seen Nose: Normal external nose present Face and sinus: Normal facial exam Eyes: Appearance normal, both eyes and all related structures Neck: Normal visual inspection and Yes full ROM Respiratory: Normal respiratory effort and able to speak in complete sentences. Clear to auscultation bilaterally Cardiovascular: Regular rate and rhythm. Normal S1 and S2 GI: Normal to inspection. Soft to palpation and nontender : Testicles without masses/lesions and no hernias appreciated Skin: No rashes or lesions noted Neuro: Patient oriented x3 Extremities: Normal to inspection Results - Labs are stable. Plan 1. Annual Physical Examination The patient reports feeling well and his labs are stable. A follow-up physical exam is scheduled in one year. 2. Cerumen Impaction, Left Ear Cerumen was noted in the left ear, and ear lavage was performed, after which the tympanic membrane was easily visualized. 3. Immunization Vaccinations were discussed, and he will receive his Tdap today. He can get the remainder of his due vaccinations at his pharmacy. Discussion Notes I discussed the patient's vaccination status with him and noted which ones he is due for. We will provide his Tdap vaccine today, and he can obtain the remaining ones at his pharmacy. I will see him for another physical exam in one year. Patient Instructions - You will receive your Tdap shot today in the office. - You can get the rest of your recommend ed vaccinations at your local pharmacy. - Please schedule a follow-up appointmen t for another physical exam in one year. [facility] Medical History Vitamin D deficiency Osteoarthritis History of postoperative nausea and vomiting Coagulase negative Staphylococcus bacteremia (~2022) Hydronephrosis concurrent with and due to calculi of kidney and ureter Myxomatous mitral valve Kidney stones (2022) Pyelonephritis MSSA bacteremia (~2022) Bladder stones Acute kidney injury (2022) Ureteral stent present BPH (benign prostatic hyperplasia) Detached retina Hernia Surgical History Hx of tonsillectomy Hx of left inguinal hernia repair Hx of right inguinal hernia repair (11/16/24) H/O colonoscopy Status post ablation of incompetent vein using laser (07/25/22) History of cystoscopy History of prostate surgery Hx of varicose vein ligation (~11/2023) History of eye surgery Family History Sister Melanoma Social History Household Members: Spouse Household Members Other:: and step son Housing: House Are you a primary skin care specialist to a significant other at home: No Do you presently have visiting nurse or other home services: No Alcohol intake: former Comment: medicated with po tylenol Patient Tobacco Use Status: Former Tobacco user Tobacco use type: Cigarette e-Cigarette/Vaping Use: Former Use Second Hand Smoke Exposure: No Advance Directives Date on File: 12/01/22 service: No Current occupational status: employed Current occupation: [employer] Cognitive needs: No Hearing needs: No Vision needs: Yes Questionnaire PHQ-9 Over the last 2 weeks, how often have you been bothered by any of the following problems? 1. Little interest or pleasure in doing things: not at all 2. Feeling down, depressed, or hopeless: not at all 3. Trouble falling or staying asleep, or sleeping too much: not at all 4. Feeling tired or having little energy: not at all 5. Poor appetite or overeating: not at all 6. Feeling bad about yourself - or that you are a failure or have let yourself or your family down: not at all 7. Trouble concentrating on things, such as reading the newspaper or watching television: not at all 8. Moving or speaking so slowly that other people could have noticed. Or the opposite - being so fidgety or restless that you have been moving around a lot more than usual: not at all 9. Thoughts that you would be better off or of hurting yourself in some way: not at all Total score: 0 Depression Screening Interpretation: Negative Depression Screening Done: Yes 26292 - PHQ-9 Billing: Yes Source: Developed by Drs. Chetan Brewer, Estrellita Nuñez, Jt Lorenzo and colleagues, with an educational ozzy from [employer]. Thrive Questionnaire Date Thrive assessed: 12/22/24 I am a: Patient What is your living situation today?: I have a steady place to live Within the past 12 months, did the food you bought not last and you didn't have the money to get more?: Never true Within the past 12 months, did you worry whether your food would run out before you got money to buy more?: Never true Do you have trouble paying for medicines?: No Do you have trouble getting transportation to medical appointments?: No Do you have trouble paying your heating and electricity bill?: No Do you have trouble taking care of your child, family member or friend?: No Do you have trouble with day-to-day activities such as bathing, preparing meals, shopping, managing finances, etc.?: No Are you currently unemployed and looking for a job?: No Are you interested in more education?: No Please select the resources that you would like help with: None Currently or been in a relationship where the following occur: No concerns reported THRIVE Score: 0 MAHESH-7 AMB Questionnaire MAHESH-7 Date MAHESH - 7 assessed: 07/12/25 Feeling nervous, anxious, or on edge: 0 = Not at all Not being able to stop or control worryin = Not at all Worrying too much about different things: 0 = Not at all Trouble relaxin = Not at all Being so restless that it is hard to sit still: 0 = Not at all Becoming easily annoyed or irritable: 0 = Not at all Feeling afraid as if something awful might happen: 0 = Not at all Total MAHESH-7 score (0-4 normal; 5-9 mild; 10-14 moderate; 15-21 severe): 0 Source: Developed by Drs. Chetan Brewer, Estrellita Nuñez, Jt Lorenzo and colleagues, with an educational ozzy from [employer]. MAHESH-7 Assessment Billing MAHESH-7 Assessment Tool: MAHESH-7 Assessment 44209 Physical exam (Primary Care) Vital Signs: Last Vital Signs Temp 97.7 F 07/12/25 10:06 Pulse 74 07/12/25 10:06 Resp 16 07/12/25 10:06 BP 122/80 07/12/25 10:06 Pulse Ox 99 07/12/25 10:06 BMI result Body Mass Index 26.5 Tobacco/Smoking Status: Tobacco use Status Tobacco use date assessed 07/12/25 07/12/25 10:16 Patient Tobacco Use Status Former Tobacco user 07/12/25 10:16 Tobacco use type Cigarette 07/12/25 10:16 e-Cigarette/Vaping Use Former Use 07/12/25 10:16 PHQ-9: PHQ-9 Score PHQ-9: Total score 0 07/12/25 10:42 Depression Screening Interpretation: Negative Thrive Assessment: Date of Thrive Assessment Date Thrive assessed 12/22/24 07/12/25 10:16 Currently or been in a relationship where the following occur: No concerns reported Office Procedures Cerumen Removal From which ear canal was the cerumen removed: left Removal: irrigation Notes: patient tolerated procedure well, no complications and ear canal clear [id number] Irrigation/Lavage Immunizations Boostrix Tdap 2.5 Lf unit-8 mcg-5 Lf/0.5 mL intramuscular syringe Performing Provider: CLIF Hendrix Performing Location: [facility] Administered by: Kaylah Henriquez MA on 07/12/25 10:50 Dose Route Admin Location Dispensed Lot Number Expiration Date [facility] 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 0.5 mL IM Right Deltoid 0.5 mL [id number] 02/03/28 [id number] [employer] Total Dispensed Waste 0.5 mL 0 % VIS Given Date VIS Provided VIS Publication Date 07/12/25 Single Vaccine 21 Eligibility Eligibility Date Funding Source Not [facility] Eligible 07/12/25 Private Coding Level of Care Code Est Pt Level 3 (96980) Est Pt Prev Care >65y(44935) Diagnoses Physical exam Z00.00 Cerumen debris on tympanic membrane H61.20 CPT Codes Office Procedure - CPT: 10899-Itm Irrigation/Lavage ([id number]) Additional Codes MAHESH-7 Assessment Billing - MAHESH-7 Assessment Tool: MAHESH-7 Assessment 45940 ([id number]) PHQ-9 - 32367 - PHQ-9 Billing: Yes ([id number]) Assessment & Plan Assessment & Plan (1) Physical exam: Code(s): Z00.00 - Encounter for general adult medical examination without abnormal findings Category: Medical (2) Cerumen debris on tympanic membrane: Code(s): H61.20 - Impacted cerumen, unspecified ear Category: Medical Plan . Orders: Orders TDaP Immunization Today Z23 - Encounter for immunization
== END 2025-07-12 11:10 | disposition home or self-care (01) ==
LOC: HO.HMCC 10:04
PROVIDERS: PCP Nurse Practitioner Family; Visit Provider Nurse Practitioner Family
DX: Z00.00 Encounter for general adult medical examination without abnormal findings (principal); H61.22 Impacted cerumen, left ear; Z23 Encounter for immunization

== ENCOUNTER → 2025-07-12 10:03 | Outpatient (BNVA) | payer OTHER, SELFPAY | PROVIDERS: PCP Nurse Practitioner Family; Visit Provider Nurse Practitioner Family | DX: Z00.00 Encounter for general adult medical examination without abnormal findings (principal); Z23 Encounter for immunization; H61.22 Impacted cerumen, left ear; Z79.82 Long term (current) use of aspirin; Z79.899 Other long term (current) drug therapy | CPT/HCPCS: 69209; 90471; 90715; 96127 ==

== ENCOUNTER 2025-08-18 09:51 | Inpatient (IN) | payer OTHER, SELFPAY ==
--- NOTE | ~2025-08-18 | FL_ITS ---
EXAMINATION: FLUOROSCOPY GUIDANCE FOR NEEDLE PLACEMENT CLINICAL INFORMATION: cysto retro with stent, right COMPARISON: Previous CT of the abdomen and pelvis August 18, 2025 TECHNIQUE: Intraoperative fluoroscopic guidance provided for cystoscopy, right retrograde exam and stent placement. FINDINGS: Single submitted fluoroscopic image demonstrates a stent with proximal pigtail projecting over the right renal collecting system. Distal end of the stent is not visualized. There may be right renal stones. See procedure note for detailed findings. FLUOROSCOPY TIME: 22 seconds DOSE: 4.1 mGy FL/FL guidance in OR IMPRESSION: Fluoroscopy guidance for urology procedure. Electronically signed by: Kenisha Martin MD 08/22/2025 08:21 AM [facility]
--- NOTE | ~2025-08-18 | CT_ITS ---
EXAMINATION: CT ABDOMEN PELVIS WITH IV CONTRAST HISTORY: RLQ pain vomiting COMPARISON: Comparison is made with the prior examination dated 06/04/2023. TECHNIQUE: CT scan of the abdomen and pelvis was performed following administration of 85 mL Omnipaque 350 using standard departmental protocol. Coronal and sagittal reformatted images were generated and reviewed. Oral contrast material was not administered at the request of the referring physician. This CT exam was performed with one or more of the following dose reduction techniques: automated exposure control, adjustment of the mA and/or kV according to patient size, use of iterative reconstruction technique. DLP: 777 mGy-cm FINDINGS: LOWER CHEST: Again seen is scarring at the right lung base. The visualized left lung base is clear. There is no pleural effusion. CARDIOVASCULATURE: The heart is normal in size. There is no pericardial effusion. LIVER: The liver is normal in size and contour. No liver mass is identified. The hepatic and portal veins are patent. GALLBLADDER / BILE DUCTS: There is cholelithiasis. There is no intra or extrahepatic biliary ductal dilatation. SPLEEN: The spleen is normal in size. Again seen is a 1.5 cm probable cyst in the spleen. PANCREAS: The pancreas is unremarkable in appearance. ADRENAL GLANDS: Within normal limits. KIDNEYS/RETROPERITONEUM: There are punctate nonobstructing calculi at the lower pole of the right kidney. There is severe right hydronephrosis and delayed nephrogram. There is marked right perinephric soft tissue stranding. There is a 12 mm obstructing calculus at the UPJ. No left renal or ureteral calculi are identified. No renal masses are identified. LYMPH NODES: No abdominal or pelvic lymphadenopathy. VASCULATURE: The abdominal aorta demonstrates atherosclerotic calcification, but is normal in caliber. MESENTERY/PERITONEUM: No free fluid. No masses. There is no free intraperitoneal gas. STOMACH: The stomach is collapsed, limiting evaluation. SMALL BOWEL: The small bowel is normal in caliber. COLON: The colon is unremarkable. APPENDIX: The appendix is not seen, however no inflammatory changes are seen adjacent to the cecum. URINARY BLADDER/PELVIC ORGANS: The urinary bladder is unremarkable. The prostate is enlarged. BONES / SOFT TISSUES: The patient is status post right total hip arthroplasty. There is degenerative disc disease of the spine. CT/CT abdomen pelvis w IV con IMPRESSION: Severe right hydronephrosis secondary to a 12 mm UPJ calculus. Electronically signed by: Chetan Howard MD 08/18/2025 01:16 PM [facility]
--- NOTE | 2025-08-18 10:15 | ED.GENADULT ---
HPI - General Adult General Chief complaint: General Medical Stated complaint: ?uti, kidney stones Time Seen by Provider: 08/18/25 12:04 Source: patient Mode of arrival: ambulatory Limitations: no limitations History of Present Illness ED Provider: RENEE CASTILLO PA-C HPI narrative: 70-year-old male with pmhx significant for hernia, pyelonephritis, nephrolithiasis, osteoarthritis, BPH presents to the ED today for evaluation of acute onset abdominal pain, nausea and vomiting which began around 1720 last night. Reports symptoms began after he consumed curried chicken and rice around 5:00 p.m. His also consumed the same meal however is asymptomatic. Reports nausea with multiple episodes of vomiting. He last vomited around 0200 this morning. Reports continued abdominal discomfort and generalized weakness. He was able to tolerate a yogurt around 0930 this morning. Denies fever, chills, constipation, diarrhea, urinary symptoms. No known sick contacts. No recent travel outside the country. No recent antibiotics. Reports history of renal stones requiring surgery. No other abdominal surgeries. Related Data Home Medications ?Medication ?Instructions ?Recorded ?Confirmed cholecalciferol (vitamin D3) 50 100 mcg PO DAILY 11/29/22 08/18/25 mcg (2,000 unit) tablet (Vitamin D3) multivitamin 1 tab PO DAILY 11/29/22 08/18/25 zinc acetate 50 mg (zinc) capsule 50 mg PO DAILY 11/29/22 08/18/25 ferrous sulfate 325 mg (65 mg 325 mg PO DAILY 08/18/25 08/18/25 iron) tablet Previous Rx's ?Medication ?Instructions ?Recorded Raised toilet seat #1 ea 12/30/24 SHOWER CHAIR #1 ea 12/30/24 walker #1 ea 12/30/24 Allergies Allergy/AdvReac Type Severity Reaction Status Date / Time No Known Allergies Allergy Verified 08/18/25 10:18 Review of Systems Review of Systems: Yes all other systems are reviewed and are negative PMFSH Past Medical History Attestation statement: The following information was validated with the patient. Source: old records reviewed and nursing notes reviewed Medical History Vitamin D deficiency Osteoarthritis History of postoperative nausea and vomiting Coagulase negative Staphylococcus bacteremia (~2022) Hydronephrosis concurrent with and due to calculi of kidney and ureter Myxomatous mitral valve Kidney stones (2022) Pyelonephritis MSSA bacteremia (~2022) Bladder stones Acute kidney injury (2022) Ureteral stent present BPH (benign prostatic hyperplasia) Detached retina Hernia Surgical History Hx of tonsillectomy Hx of left inguinal hernia repair Hx of right inguinal hernia repair (11/16/24) H/O colonoscopy Status post ablation of incompetent vein using laser (07/25/22) History of cystoscopy History of prostate surgery Hx of varicose vein ligation (~11/2023) History of eye surgery Family History Family History Sister Melanoma Social History Social History Household Members: Spouse Household Members Other:: and step son Housing: House Are you a primary daytime caregiver to a significant other at home: No Do you presently have visiting nurse or other home services: No Alcohol intake: former Comment: medicated with po tylenol Patient Tobacco Use Status: Former Tobacco user Tobacco use type: Cigarette e-Cigarette/Vaping Use: Former Use Second Hand Smoke Exposure: No Advance Directives: Yes Advance Directives on File: Yes Advance Directives Date on File: 12/01/22 service: No Current occupational status: employed 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 Afebrile. General: Well appearing, in no acute distress. Skin: Warm, dry, intact. No rashes or lesions. Head: Normocephalic, atraumatic. EENT: Hearing is intact b/l. Conjunctiva clear. PERRLA. EOM intact. Moist mucous membranes.? Neck: Supple without LAD Cardiac: Chest wall symmetric. RRR Lungs: Normal respiratory effort without accessory muscle use. CTA bilaterally. Abdomen: Soft, nondistended, tender to palpation of right lower quadrant without rebound or guarding. active bs x4. no cvat. Back: No midline spinous or paraspinal tenderness. No step off deformity. Ext: Upper and lower extremities atraumatic, without tenderness, deformity, swelling or erythema. Full ROM throughout Neuro: AOx3. Normal speech. Ambulating with steady gait Course Course Course Narrative: This is a Rapid Medical Exam performed in triage by Maria Luz Carcamo PA-C. Full HPI, ROS and PE to be performed by primary ED provider. 70 yo M w/pmhx hernia, pyelo, renal stones, OA presenting to the ED c/o abdominal pain, N/V, chills, weakness. denies dysuria, hematuria, flank pain. denies sick contacts PE: NAD, nontoxic appearing, ambulating w/steady gait Plan: Labs, UA, SARs Reevaluation(s) Reevaluation #1: 1424 -- CBC showing leukocytosis to 15.3 with left shift. No anemia, H and H stable. Chemistry without acute electrolyte abnormality requiring intervention. BUN elevated to 43, creatinine 1.55. Liver function WNL. Urine showing large urine blood, over 20 RBCs, over 50 WBCs, no urine bacteria. Negative COVID, flu, RSV, strep throat. CT abdomen/pelvis showing marked right perinephric soft tissue stranding, 12 mm obstructing calculus at the UPJ and severe right hydronephrosis. Discussed with urologist, Dr. Phillips. Dr. Phillips will admit to his service with plan for stent tomorrow morning. Dr. Phillips to place admission orders. Discussed results and disposition with patient who is agreeable. Patient treated with IVF, Zofran and ceftriaxone. Continues to endorse 4/10 pain however declines any pain meds. stable at this time. Medications Administered Discontinued Medications Generic Name Dose Route Start Last Admin Trade Name Freq PRN Reason Stop Dose Admin Sodium Chloride 1,000 mls @ 999 mls/hr 08/18/25 12:45 08/18/25 13:11 Ns IV 08/18/25 13:45 999 mls/hr .Q1H1M PERNELL Administration Sodium Chloride 1,000 mls @ 999 mls/hr 08/18/25 12:45 08/18/25 13:11 Ns IV 08/18/25 13:45 999 mls/hr .Q1H1M PERNELL Administration Iohexol 100 ml 08/18/25 13:01 08/18/25 13:03 Iohexol 350 Mg/Ml 100 Ml Infus..Btl IV 08/18/25 13:02 85 ml ONCE ONE Administration Ondansetron HCl 4 mg 08/18/25 12:37 08/18/25 13:11 Ondansetron Hcl 4 Mg/2 Ml Vial IVPUSH 08/18/25 12:38 4 mg ONCE ONE Administration Medical Decision Making Medical Decision Making [facility] Narrative: 70-year-old male with pmhx significant for hernia, pyelonephritis, nephrolithiasis, osteoarthritis, BPH presents to the ED today for evaluation of acute onset abdominal pain, nausea and vomiting which began around 1720 last night. Patient is slightly hypertensive to 140/69, vitals are otherwise WNL. He is afebrile. He is well-appearing, lying comfortably in the exam bed. On exam, abdomen is soft, nondistended, tender to palpation of right lower quadrant without rebound or guarding. Active bowel sounds x4. No CVAT bilaterally. Differential diagnosis includes anemia, electrolyte abnormality, renal colic, nephrolithiasis, hydronephrosis, obstructive uropathy, UTI, diverticulosis, diverticulitis, appendicitis, gastroenteritis, gastritis, PUD, viral syndrome Plan for labs, UA, imaging, re-evaluation. Differential Diagnosis Differential Diagnoses: The differential diagnosis associated with the presentation includes as above. Admission/Observation Consideration of admission/observation: Escalation of care including admission/observation considered Patient admitted to with the urology service for management of 12 mm obstructing UPJ stone. Consult Healthcare Provider Management of the patient was discussed with: [facility] - Dr. Phillips Lab Data [facility] Lab Attestation statement: I reviewed the patient's lab results. as above. 08/18/25 10:32 08/18/25 10:32 Labs: Lab Results 08/18/25 Range/Units 10:32 WBC 15.3 H (4.8-10.8) X10*3/uL RBC 5.79 (4.60-5.80) X10*6/uL Hgb 15.4 (14.0-18.0) g/dl Hct 47.8 (42.0-52.0) % MCV 82.6 (80.0-98.0) fL MCH 26.6 L (27.0-33.0) pg MCHC 32.2 (31.0-36.0) g/dl RDW 15.6 (11.0-16.0) % Plt Count 279 (160-400) X10*3/uL MPV 9.8 (9.4-12.4) fL Immature Gran % (Auto) 0.5 H (0.0-0.4) % Neut % (Auto) 82.4 H (45-73) % Lymph % (Auto) 8.0 L (20-40) % [place] % (Auto) 8.8 (2-11) % Eos % (Auto) 0.0 (0-4) % Baso % (Auto) 0.3 (0-2) % Lymph # (Auto) 1.2 (1.2-4.9) X10*3/uL [place] # (Auto) 1.4 H (0.1-1.2) X10*3/uL Eos # (Auto) 0.0 (0.0-0.4) X10*3/uL Baso # (Auto) 0.0 (0.0-0.2) X10*3/uL Abs Immat Gran (auto) 0.07 H (0.00-0.03) X10*3/uL Absolute Neuts (auto) 12.6 H (2.0-8.3) x10*3/uL Absolute Nucleated RBC 0.000 (0.0-0.012) X10*3/uL Nucleated RBC % (auto) 0.0 (0.0-0.2) /100WBC Sodium 139 (135-145) mmol/L Potassium 4.0 (3.3-5.1) mmol/L Chloride 104 (96-108) mmol/L Carbon Dioxide 24 (22-29) mmol/L Anion Gap 15 (12-20) BUN 43 H (9-16) mg/dL Creatinine 1.55 H (0.5-1.4) mg/dL Estim Creat Clear Calc 51.5 Estimated GFR 45 Random Glucose 103 (60-115) mg/dL Calcium 10.1 D (8.4-10.2) mg/dL Magnesium 2.3 (1.6-2.6) mg/dL Total Bilirubin 0.7 (0.0-1.0) mg/dL Direct Bilirubin 0.3 (0.0-0.5) mg/dL AST 22 (5-37) U/L ALT 22 (0-40) U/L Alkaline Phosphatase 66 (39-117) U/L Total Protein 7.8 (6.5-8.0) g/dL Albumin 4.9 (3.5-5.0) g/dL Urine Color Dark Yellow Urine Appearance Cloudy Urine pH 5.0 (5.0-9.0) Ur Specific [place] 1.025 (1.005-1.025) Urine Protein 30 (1+) H (Neg-Trace) mg/dL Urine Glucose (UA) Negative (Negative) mg/dL Urine Ketones 15 (Negative) mg/dL Urine Blood Large (3+) H (Negative) Urine Nitrite Negative (Negative) Ur Leukocyte Esterase Moderate (2+) H (Negative) Urine RBC >20 H (0-2) /HPF Urine WBC >50 H (0-5) /HPF Ur Squamous Epith Cells 0-2 (0-2) /HPF Urine Bacteria None Seen (None Seen) Hyaline Casts 3-5 (0-2) /LPF Influenza Type A (PCR) NEGATIVE (Negative) Influenza Type B (PCR) NEGATIVE (Negative) RSV RNA Qual (PCR) NEGATIVE (Negative) SARS-CoV-2 RNA (RT-PCR) NEGATIVE (Negative) S. pyogenes GrpA MIRACLE Negative (Negative) Independent Interpretation I performed an independent interpretation of an: CT Scan Interpretation: CT abdomen/pelvis showing a large right UPJ stone Radiology Impression Discussion of test interpretation with radiology: I have reviewed the radiologist's reading. Radiologist Impression: Procedure(s): CT abdomen pelvis w IV con Accession Number(s): [id number] cc: Clyde Bruner-; Renee Castillo~ Report Number: [id number]: Total DLP = 777.00 mGy-cm Reason for Exam: RLQ pain vomiting EXAMINATION: CT ABDOMEN PELVIS WITH IV CONTRAST HISTORY: RLQ pain vomiting COMPARISON: Comparison is made with the prior examination dated 06/04/2023. TECHNIQUE: CT scan of the abdomen and pelvis was performed following administration of 85 mL Omnipaque 350 using standard departmental protocol. Coronal and sagittal reformatted images were generated and reviewed. Oral contrast material was not administered at the request of the referring physician. This CT exam was performed with one or more of the following dose reduction techniques: automated exposure control, adjustment of the mA and/or kV according to patient size, use of iterative reconstruction technique. DLP: 777 mGy-cm FINDINGS: LOWER CHEST: Again seen is scarring at the right lung base. The visualized left lung base is clear. There is no pleural effusion. CARDIOVASCULATURE: The heart is normal in size. There is no pericardial effusion. LIVER: The liver is normal in size and contour. No liver mass is identified. The hepatic and portal veins are patent. GALLBLADDER / BILE DUCTS: There is cholelithiasis. There is no intra or extrahepatic biliary ductal dilatation. SPLEEN: The spleen is normal in size. Again seen is a 1.5 cm probable cyst in the spleen. PANCREAS: The pancreas is unremarkable in appearance. ADRENAL GLANDS: Within normal limits. KIDNEYS/RETROPERITONEUM: There are punctate nonobstructing calculi at the lower pole of the right kidney. There is severe right hydronephrosis and delayed nephrogram. There is marked right perinephric soft tissue stranding. There is a 12 mm obstructing calculus at the UPJ. No left renal or ureteral calculi are identified. No renal masses are identified. LYMPH NODES: No abdominal or pelvic lymphadenopathy. VASCULATURE: The abdominal aorta demonstrates atherosclerotic calcification, but is normal in caliber. MESENTERY/PERITONEUM: No free fluid. No masses. There is no free intraperitoneal gas. STOMACH: The stomach is collapsed, limiting evaluation. SMALL BOWEL: The small bowel is normal in caliber. COLON: The colon is unremarkable. APPENDIX: The appendix is not seen, however no inflammatory changes are seen adjacent to the cecum. URINARY BLADDER/PELVIC ORGANS: The urinary bladder is unremarkable. The prostate is enlarged. BONES / SOFT TISSUES: The patient is status post right total hip arthroplasty. There is degenerative disc disease of the spine. CT/CT abdomen pelvis w IV con IMPRESSION: Severe right hydronephrosis secondary to a 12 mm UPJ calculus. Electronically signed by: Chetan Howard MD 08/18/2025 01:16 PM [facility] Independent Historian Clinical information obtained from an independent historian. History obtained from or confirmed by: Spouse Prescription Management I considered prescription management with: Pain Medication, Antibiotic and Other (zofran) Chronic Conditions Patient?s care impacted by: Other (renal stones, BPH) Social Determinants Patient?s care significantly limited by Social Determinants of Health including: Other Social Determinant of Health Critical Care Time Critical Care Time Critical Care Time: Yes Total Critical Care Time: 31 Attestation: Critical care time in the amount of 31 minutes has been provided to the patient in terms of direct patient care, frequent reevaluation, consultation with urology, review and interpretation of medical data and results, and management of potentially life-threatening conditions. This is all outside of any medical procedures. Discharge Plan Discharge Clinical Impression: Obstruction of right ureteropelvic junction (UPJ) due to stone, CLAUS (acute kidney injury) Patient Disposition: Admitted As Inpatient Print Language: Chinese
[2025-08-18 10:16] VITALS: BP 126/88; PULSE 90; RESP 16; TEMP 36.6; O2SAT 98; BMI 25.7
[2025-08-18 10:51] LABS: MANUAL DIFF FLAG NO
[2025-08-18 10:52] LABS: Hematocrit 47.8 % (42.0-52.0); Hemoglobin 15.4 g/dl (14.0-18.0); Imm Gran Abs Auto 0.07 X10*3/uL (0.00-0.03); Imm Gran Pct Auto 0.5 % (0.0-0.4); Lymphocytes Absolute Auto 1.2 X10*3/uL (1.2-4.9); Mean Corpuscular HGB Conc 32.2 g/dl (31.0-36.0); Mean Corpuscular Hemoglobin 26.6 pg (27.0-33.0); Mean Corpuscular Volume 82.6 fL (80.0-98.0); NRBC Abs Auto 0.000 X10*3/uL (0.0-0.012); NRBC Pct Auto 0.0 /100WBC (0.0-0.2); Platelet Count 279 X10*3/uL (160-400); Red Blood Count 5.79 X10*6/uL (4.60-5.80); White Blood Count 15.3 X10*3/uL (4.8-10.8)
[2025-08-18 10:56] LABS: Appearance Urine Cloudy; Glucose Urine UA Negative (Negative); PH 5.0 (5.0-9.0); Specific Gravity - Urine 1.025 (1.005-1.025); UMIC TRIGGER UACC YES
[2025-08-18 11:01] LABS: UACC Culture Trigger YES
[2025-08-18 11:11] LABS: IDNOW Serial# 58CA691E; Strep A Nucleic Acid Negative (Negative)
[2025-08-18 11:12] LABS: Alanine Aminotransferase 22 U/L (0-40); Albumin Level 4.9 g/dL (3.5-5.0); Alkaline Phosphatase 66 U/L (39-117); Anion Gap 15 (12-20); Aspartate Amino Transferase 22 U/L (5-37); Blood Urea Nitrogen 43 mg/dL (9-16); Calcium 10.1 mg/dL (8.4-10.2); Carbon Dioxide 24 mmol/L (22-29); Chloride 104 mmol/L (96-108); Creatinine Clr Calc Pharmacy 51.5; Estimated Glomerular Filt Rate 45; Magnesium 2.3 mg/dL (1.6-2.6); Potassium 4.0 mmol/L (3.3-5.1); Sodium 139 mmol/L (135-145); Total Protein 7.8 g/dL (6.5-8.0)
[2025-08-18 11:43] LABS: Resp Syncy Virus RNA Qual PCR NEGATIVE (Negative); SARS COV2 PCR INHOUSE NEGATIVE (Negative)
[2025-08-18 11:56] VITALS: BP 153/79; PULSE 76; TEMP 36.6; O2SAT 98
[2025-08-18] MEDS: iohexoL 350 MG/ML 100 ML INFUS..BTL IV (13:03)
[2025-08-18 13:50] VITALS: BP 140/69; PULSE 79; TEMP 36.8; O2SAT 94
--- NOTE | 2025-08-18 14:53 | PHA.MEDREC ---
Addendum entered by Charmaine Cooper RPh 08/18/25 15:13: MED REC REVIEWED BY [facility] Original Note: Pharmacy Consult ? Medication Reconciliation Pharmacy has completed the medication reconciliation. Spoke with pt and she confirmed her medications. Pt confirmed he has not been able to tolerate and keep down any of his meds in 2 days.
--- NOTE | 2025-08-18 15:50 | PM.HPGS ---
History of Present Illness History of Present Illness Date of Service: 08/18/25 Chief complaint: ?uti, kidney stones Narrative: Sancho Padilla is a 70 year old male Well known to Urology Recurrent stone former and large prostate with prior bladder stones Last stone intervention 2022 Presents to emergency room with acute onset of abdominal pain, nausea, vomiting Reports abdominal discomfort with generalized weakness. Not tolerating orals. WBC 15.3, creatinine 1.5 Imaging - right hydro nephrosis with proximal UPJ stone Given inability to maintain oral intake recommend hospital admission. Would plan for stent placement tomorrow Review of Systems Constitutional: Constitutional: Reports as per HPI and Reports no additional constitutional complaints Cardiovascular: Cardiovascular: Reports as per HPI and Reports no additional cardiovascular complaints Respiratory: Respiratory: Reports as per HPI and Reports no additional respiratory complaints Gastrointestinal: Gastrointestinal: Reports as per HPI and Reports no additional gastrointestinal complaints Genitourinary: Genitourinary: Reports as per HPI Musculoskeletal: Musculoskeletal: Reports no additional musculoskeletal complaints and Reports as per HPI Neurologic: Reports system reviewed and no additional complaints, except as documented and Reports as per HPI [facility] Past Medical History Medical History Vitamin D deficiency Osteoarthritis History of postoperative nausea and vomiting Coagulase negative Staphylococcus bacteremia (~2022) Hydronephrosis concurrent with and due to calculi of kidney and ureter Myxomatous mitral valve Kidney stones (2022) Pyelonephritis MSSA bacteremia (~2022) Bladder stones Acute kidney injury (2022) Ureteral stent present BPH (benign prostatic hyperplasia) Detached retina Hernia Family History Family History Sister Melanoma Surgical History Surgical History Hx of tonsillectomy Hx of left inguinal hernia repair Hx of right inguinal hernia repair (11/16/24) H/O colonoscopy Status post ablation of incompetent vein using laser (07/25/22) History of cystoscopy History of prostate surgery Hx of varicose vein ligation (~11/2023) History of eye surgery Social History Social History Household Members: Spouse Household Members Other:: and step son Housing: House Are you a primary ocular care technician to a significant other at home: No Do you presently have visiting nurse or other home services: No Alcohol intake: former Comment: medicated with po tylenol Patient Tobacco Use Status: Former Tobacco user Tobacco use type: Cigarette e-Cigarette/Vaping Use: Former Use Second Hand Smoke Exposure: No Advance Directives: Yes Advance Directives on File: Yes Advance Directives Date on File: 12/01/22 service: No Current occupational status: employed 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 - [employer] Cognitive needs: No Hearing needs: No Vision needs: Yes Meds Allergies Allergy/AdvReac Type Severity Reaction Status Date / Time No Known Allergies Allergy Verified 08/18/25 10:18 Home Medications ?Medication ?Instructions ?Recorded ?Confirmed ?Last Taken ?Type cholecalciferol (vitamin D3) 50 100 mcg PO DAILY 11/29/22 08/18/25 08/16/25 History mcg (2,000 unit) tablet (Vitamin D3) multivitamin 1 tab PO DAILY 11/29/22 08/18/25 08/16/25 History zinc acetate 50 mg (zinc) capsule 50 mg PO DAILY 11/29/22 08/18/25 08/16/25 History ferrous sulfate 325 mg (65 mg 325 mg PO DAILY 08/18/25 08/18/25 08/16/25 History iron) tablet Physical Exam Vital Signs: Vital Signs: Last Vital Signs Temp 98.3 F 08/18/25 13:50 Pulse 79 08/18/25 13:50 Resp 16 08/18/25 10:16 BP 140/69 H 08/18/25 13:50 Pulse Ox 94 08/18/25 13:50 O2 Del Method Room Air 08/18/25 13:50 BMI result Body Mass Index 25.7 Const: General: cooperative, healthy appearing, comfortable and no acute distress Orientation/consciousness: patient oriented x3 HEENT: Face and sinus: Yes normal facial exam Mouth: moist mucous membranes Neck: Neck: Yes normal visual inspection, Yes full ROM and Yes trachea midline Chest: Chest palpation & inspection: normal inspection of the chest Resp: Effort & Inspection: normal respiratory effort, able to speak in complete sentences and no respiratory distress GI: Inspection: Yes normal to inspection Back/Spine/Pelvis: Cervical Spine: normal cervical lordosis Thoracic/Lumbar Spine: thoracic and lumbar spine normal to inspection Skin: General skin exam: no rashes or lesions noted Neuro: General: patient oriented x3, tone normal and moves all extremities Extrem: General: Yes normal to inspection and Yes capillary refill normal Results Results Labs: Short CBC 08/18/25 Range/Units 10:32 WBC 15.3 H (4.8-10.8) X10*3/uL Hgb 15.4 (14.0-18.0) g/dl Hct 47.8 (42.0-52.0) % Plt Count 279 (160-400) X10*3/uL BMP 08/18/25 10:32 Sodium 139 Potassium 4.0 Chloride 104 Carbon Dioxide 24 BUN 43 H Creatinine 1.55 H Calcium 10.1 D Liver Function 08/18/25 Range/Units 10:32 Total Bilirubin 0.7 (0.0-1.0) mg/dL Direct Bilirubin 0.3 (0.0-0.5) mg/dL AST 22 (5-37) U/L ALT 22 (0-40) U/L Alkaline Phosphatase 66 (39-117) U/L Albumin 4.9 (3.5-5.0) g/dL Urine 08/18/25 Range/Units 10:32 Urine Color Dark Yellow Urine Appearance Cloudy Urine pH 5.0 (5.0-9.0) Ur Specific [place] 1.025 (1.005-1.025) Urine Protein 30 (1+) H (Neg-Trace) mg/dL Urine Glucose (UA) Negative (Negative) mg/dL Assessment and Plan (1) Renal calculus, right: Status: Acute (2) Hydronephrosis: Qualifiers: Hydronephrosis type: unspecified Qualified Code(s): N13.30 - Unspecified hydronephrosis Status: Acute Plan Admit NPO after 24 Right stent placement tomorrow morning Quality Stroke Does the patient have a stroke diagnosis?: No VTE Prior VTE?: No VTE Risk Level:: Surgical - low VTE Device Contraindication: Treatment Not Indicated VTE Drug Contraindication: Treatment Not Indicated Procedures Date of Service Date of Service: 08/18/25
--- NOTE | 2025-08-18 16:36 | HO.NURTONUR ---
Pt came into ED for acute onset abd pain, n/v that began last pm. Pt has hx of pyelonephritis, kid stones, and BPH. CTAP showed 12mm UPJ stone. Pt to be admitted overnight and plan for OR tomorrow for ureteral stent placement. Pt is independent with ADLs, walks independently. A/ox4. Regular diet. NPO at midnight. Bld cxs x2 were drawn. Pt received IV abx. 20gLAC.
--- NOTE | 2025-08-18 17:19 | PC.NURSE ---
1600- pt had total of 2400ml output prior to transfer to floor. Dahl bag emptied on transfer
[2025-08-18 17:23] VITALS: BP 142/66; PULSE 82; RESP 19; TEMP 37.1; O2SAT 95; BMI 29.3
[2025-08-18 19:57] VITALS: BP 143/65; PULSE 73; RESP 19; TEMP 37.1; O2SAT 93
[2025-08-19 03:58] VITALS: BP 145/60; PULSE 80; RESP 18; TEMP 36.3; O2SAT 93
[2025-08-19 07:33] VITALS: BP 142/68; PULSE 76; RESP 18; TEMP 37.2; O2SAT 93
--- NOTE | 2025-08-19 08:55 | HO.ANESPROP2 ---
HPI - Anesthesia Eval Consult details Narrative: Right ureter obstruction PMFSH Active Problems Active Problems: All Active Problems CLAUS (acute kidney injury) (Acute) Obstruction of right ureteropelvic junction (UPJ) due to stone (Acute) Cerumen debris on tympanic membrane (Acute) Vitamin D deficiency (Acute) S/P inguinal hernia repair (Acute) Status post right hip replacement (Acute) Osteoarthritis of right hip (Acute) S/P right inguinal hernia repair (Acute) Prostatitis due to Kathleen species (Acute) Fungal infection (Acute) Pre-op exam (Acute) Anemia (Acute) Right inguinal hernia (Acute) Low back pain (Acute) Primary osteoarthritis of left hip (Acute) Osteoarthritis (Acute) Osteoarthritis of right knee (Acute) Osteoarthritis of left knee (Acute) Primary osteoarthritis of right hip (Acute) Incomplete emptying of bladder due to benign prostatic hyperplasia (Acute) History of adenomatous polyp of colon (Acute) Systolic murmur (Acute) Screening for colon cancer (Acute) Physical exam (Acute) Renal calculus, right (Acute) Hydronephrosis (Acute) Blockage of stent of ureter (Acute) Urinary tract infection (Acute) Acute unilateral obstructive uropathy (Acute) Varicose veins of right lower extremity with inflammation (Acute) Varicose veins of left lower extremity with inflammation (Acute) Elevated PSA (Acute) Varicose vein of leg (Acute) Gross hematuria (Acute) UTI (urinary tract infection), bacterial (Acute) BPH w urinary obs/LUTS (Acute) Coagulase negative Staphylococcus bacteremia (Acute ~2022) Bladder stones (Acute) MSSA bacteremia (Acute ~2022) Past Medical History Medical History Vitamin D deficiency Osteoarthritis History of postoperative nausea and vomiting Coagulase negative Staphylococcus bacteremia (~2022) Hydronephrosis concurrent with and due to calculi of kidney and ureter Myxomatous mitral valve Kidney stones (2022) Pyelonephritis MSSA bacteremia (~2022) Bladder stones Acute kidney injury (2022) Ureteral stent present BPH (benign prostatic hyperplasia) Detached retina Hernia Family History Family History Sister Melanoma Family history of problems with anesthesia: No Surgical History Surgical History Hx of tonsillectomy Hx of left inguinal hernia repair Hx of right inguinal hernia repair (11/16/24) H/O colonoscopy Status post ablation of incompetent vein using laser (07/25/22) History of cystoscopy History of prostate surgery Hx of varicose vein ligation (~11/2023) History of eye surgery History of Problems with Anesthesia: No Social History Social History Household Members: Spouse and Children Household Members Other:: and step son Housing: House Are you a primary healthcare applications analyst to a significant other at home: No Do you presently have visiting nurse or other home services: No Alcohol intake: former Comment: medicated with po tylenol Patient Tobacco Use Status: Former Tobacco user Tobacco use type: Cigarette e-Cigarette/Vaping Use: Former Use Second Hand Smoke Exposure: No Currently Displaying Signs/Symptoms of Drug Intoxication Withdrawal: No Do you feel safe in your current relationship?: Yes Advance Directives: Yes Advance Directives on File: Yes Advance Directives Date on File: 12/01/22 Do you have a plan to hurt others: No Plan Recently lost weight without trying: No service: No Current occupational status: employed 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 - [employer] Cognitive needs: No Hearing needs: No Vision needs: Yes Meds Allergies Allergy/AdvReac Type Severity Reaction Status Date / Time No Known Allergies Allergy Verified 08/18/25 10:18 Active Medications: Current Medications Acetaminophen (Acetaminophen 325 Mg Tablet) 650 mg PO Q6H PRN PRN Reason: Pain, Mild 1-3,fever,headache Acetaminophen (Acetaminophen 325 Mg Tablet) 975 mg PO TID [facility] Last Admin: 08/19/25 08:37 Dose: Not Given Calcium Carbonate (Calcium Carbonate 750 Mg Tab.Chew) 750 mg PO Q4H PRN PRN Reason: Heartburn Sodium Chloride (Ns) 1,000 mls @ 100 mls/hr IVCONT .Q10H [facility] Last Admin: 08/19/25 02:46 Dose: 100 mls/hr Magnesium Hydroxide (Milk Of Magnesia 30 Ml Oral.Susp) 30 ml PO DAILY PRN PRN Reason: Constipation Melatonin (Melatonin 3 Mg Tablet) 6 mg PO BEDTIME PRN PRN Reason: Insomnia Ondansetron HCl (Ondansetron Hcl 4 Mg/2 Ml Vial) 4 mg IVPUSH Q8H PRN PRN Reason: Nausea and Vomiting Oxycodone HCl (Oxycodone Hcl Immed Release 5 Mg Tablet) 5 mg PO Q6H PRN PRN Reason: Pain, Severe (Pain Scale 7-10) Sodium Chloride (0.9 % Sodium Chloride Flush 3 Ml Syringe) 3 ml IVFLUSH QSHIFT [facility] Last Admin: 08/19/25 08:42 Dose: Not Given Home Medications ?Medication ?Instructions ?Recorded ?Confirmed ?Last Taken ?Type cholecalciferol (vitamin D3) 50 100 mcg PO DAILY 11/29/22 08/18/25 08/16/25 History mcg (2,000 unit) tablet (Vitamin D3) multivitamin 1 tab PO DAILY 11/29/22 08/18/25 08/16/25 History zinc acetate 50 mg (zinc) capsule 50 mg PO DAILY 11/29/22 08/18/25 08/16/25 History ferrous sulfate 325 mg (65 mg 325 mg PO DAILY 08/18/25 08/18/25 08/16/25 History iron) tablet Exam Height,Weight and Vital Signs: Height 6 ft 1 in Weight 100.6 kg Last Vital Signs Temp 98.9 F 08/19/25 07:33 Pulse 76 08/19/25 07:33 Resp 18 08/19/25 07:33 BP 142/68 H 08/19/25 07:33 Pulse Ox 93 08/19/25 07:33 O2 Del Method Room Air 08/19/25 07:33 Pertinent Lab Results Pertinent Lab Results: Laboratory Tests 08/18/25 10:32 WBC 15.3 H RBC 5.79 Hgb 15.4 Hct 47.8 MCV 82.6 MCH 26.6 L MCHC 32.2 RDW 15.6 Plt Count 279 MPV 9.8 Immature Gran % (Auto) 0.5 H Neut % (Auto) 82.4 H Lymph % (Auto) 8.0 L [place] % (Auto) 8.8 Eos % (Auto) 0.0 Baso % (Auto) 0.3 Lymph # (Auto) 1.2 [place] # (Auto) 1.4 H Eos # (Auto) 0.0 Baso # (Auto) 0.0 Abs Immat Gran (auto) 0.07 H Absolute Neuts (auto) 12.6 H Absolute Nucleated RBC 0.000 Nucleated RBC % (auto) 0.0 Sodium 139 Potassium 4.0 Chloride 104 Carbon Dioxide 24 Anion Gap 15 BUN 43 H Creatinine 1.55 H Estim Creat Clear Calc 51.5 Estimated GFR 45 Random Glucose 103 Calcium 10.1 D Magnesium 2.3 Total Bilirubin 0.7 Direct Bilirubin 0.3 AST 22 ALT 22 Alkaline Phosphatase 66 Total Protein 7.8 Albumin 4.9 Urine Color Dark Yellow Urine Appearance Cloudy Urine pH 5.0 Ur Specific [place] 1.025 Urine Protein 30 (1+) H Urine Glucose (UA) Negative Urine Ketones 15 Urine Blood Large (3+) H Urine Nitrite Negative Ur Leukocyte Esterase Moderate (2+) H Urine RBC >20 H Urine WBC >50 H Ur Squamous Epith Cells 0-2 Urine Bacteria None Seen Hyaline Casts 3-5 Influenza Type A (PCR) NEGATIVE Influenza Type B (PCR) NEGATIVE RSV RNA Qual (PCR) NEGATIVE SARS-CoV-2 RNA (RT-PCR) NEGATIVE S. pyogenes GrpA MIRACLE Negative Airway Mallampati Class: II TM Dist: >3cm Neck ROM: Full Loose/Missing/Broken Teeth: No Heart: RRR Lungs: CTA Assessment and Plan Assessment Anesthesia Assessment: Anesthesia Plan Discussed and Chart Reviewed Final Anesthetic Review Family History of Problems with Anesthesia: No History of Problems with Anesthesia: No NPO: Yes ASA Class: III Final Preanesthetic Review: No Changes in Pt Med Stat, Meds/Allgs Chart Reviewed, Consent Obtained/Reviewed and Anes Risks/Benef Reviewed Patient Risk: Intermediate Procedure Risk: Low Anesthetic Plan Anesthetic Plan: GA Disposition: Standard PACU
--- NOTE | 2025-08-19 09:13 | MHC.SHP ---
Pre-Procedural Eval Section A - 24 Hr Update-Section A only Date of Service: 08/19/25 The patient is an INPATIENT: Yes Changes since office visit: No Cold of Flu in the past 2 weeks, No New Medical Problems, No Changes in Medication and No Patient answered all questions The patient has been examined within 24 hours of the surgical procedure. The History & Physical has been completed within 30 days and I have reviewed it.: Yes Section B - Complete if H&P > 30 days Chief Complaint: nephrolithiasis Details of Present Illness: Received antibiotics 17:30 last night. Plan for cystoscopy, right retrograde, right stent placement. Discharge the saphenous Allergies: Allergies Allergy/AdvReac Type Severity Reaction Status Date / Time No Known Allergies Allergy Verified 08/18/25 10:18 Plan I have reviewed the history and physical and performed a pertinent physical examination on my patient. No changes have occurred unless specified. Time Spent With Patient Time: Total time managing care of this patient today ____ minutes.
--- NOTE | 2025-08-19 09:48 | W.PM.OPN ---
Operative Note Operative Note Date of Service: 08/19/25 Narrative: PreOperative Diagnosis: Right proximal ureteric stone with elevated creatinine Post Operative Diagnosis: Right proximal ureteric stone with elevated creatinine Procedure: Cystoscopy, right retrograde, right stent placement - modifier 22 100% longer than typical due to difficulty in finding ureteric orifice - 30 minutes versus 15 Surgeon: Dr Rod Phillips Anesthesia: Sedation Indications for procedure: Proximal right ureteric stone with elevated creatinine, nausea and vomiting and inability to tolerate oral intake. Known stone former. Presentation through emergency room. Procedure: After informed consent was verified the patient was brought to the operating room and placed in a supine position. Anesthesia was administered per protocol. The patient was placed in modified dorsal lithotomy position and prepped and draped in a sterile fashion. A safety pause time-out was performed. Laterality of procedure and antibiotics were confirmed, appropriate imaging was available A 22 Bulgarian cystoscope was introduced per urethra. He had undergone prior prostate procedure for bladder stones. Known to have an extremely large prostate approximately 250 cc. Anatomy significantly distorted following prostate procedure which made locating the ureter difficult. There was ooze from the prostate which led to decreased visualization. The bladder was frequently emptied in order to maintain visualization. Multiple cellules were seen giving the false impression of the ureteric orifice. After careful examination in the lateral corner of the prostatic fossa there appeared to be a potential ureteric orifice. The right ureter was cannulated with an open ended catheter and a retrograde examination was performed. This showed significant J hooking of the distal portion of the ureter. A Sensor guidewire was placed under fluoroscopy and could be seen in the distal 3rd of the ureter. The open-ended cannula was then advanced over the wire into the distal portion of the ureter. The wire removed. A 2nd retrograde was performed which showed potential obstruction in the proximal portion of the ureter consistent with the CT scan. It also showed chronic dilatation and tortuosity of the distal ureteric path. The wire was further advanced into the renal pelvis. The open-ended catheter was removed. A 6 Bulgarian by variable length double J stent was advanced over the wire and up to the level of the renal pelvis under fluoroscopic and direct visualization. The stent was seen with appropriate coil within the renal pelvis and in the bladder after deployment. The patient tolerated the procedure well and was transferred in a stable condition to the recovery area. He will be given a dose of tranexamic acid for the prostatic ooze and may require oral medications after discharge to prevent further hematuria. Pathology: Drains: As above
[2025-08-19 09:54] VITALS: BP 113/60; PULSE 75; RESP 15; TEMP 36.6; O2SAT 92
--- NOTE | 2025-08-19 09:59 | PM.DS ---
DS: Providers Provider Date of admission: 08/18/25 16:09 Date of discharge: 08/19/25 Primary care physician: Clyde Bruner [facility] DS: Diagnosis Discharge Diagnosis (1) Renal calculus, right: Status: Acute (2) Hydronephrosis: Status: Acute (3) CLAUS (acute kidney injury): Status: Acute DS: Summary Hospital Course Hospital Course: Admit through emergency room with nausea and vomiting elbow early to retain fluids. CT scan showed 8 mm proximal right ureteric stone with hydro nephrosis. Chronic hydro uretero nephrosis. Creatinine elevated to 1.5 times baseline satisfying TAMARA criteria level 1 acute kidney injury. He underwent cystoscopy with right stent placement. This was well tolerated. Noted to have significant ooze from his prostate and given TXA in recovery. Definitive stone procedure will be deferred for approximately 2 weeks Status at Discharge Functional status at discharge: independent ambulation Overall status at discharge: patient is back to baseline Time Attestation Total time managing care of this patient today: 15 mintues. Discharge Coordination Time (in mins): 15 Quality: Safe Use of Opioids Does Pt have an Active Cancer Diagnosis on the Problem List?: No Quality: Stroke Does the patient have a stroke diagnosis?: No Physical Exam Vital Signs: Vital Signs: Last Vital Signs Temp 97.8 F 08/19/25 09:54 Pulse 75 08/19/25 09:54 Resp 15 08/19/25 09:54 BP 113/60 08/19/25 09:54 Pulse Ox 92 08/19/25 09:54 O2 Del Method Room Air 08/19/25 09:54 BMI result Body Mass Index 29.3 DS: Data Data Completed and Pending Completed studies during hospitalization [Text1]: Procedures Right stent placement Labs on day of discharge: Laboratory Results - last 24 hr 08/18/25 10:32 WBC 15.3 H RBC 5.79 Hgb 15.4 Hct 47.8 MCV 82.6 MCH 26.6 L MCHC 32.2 RDW 15.6 Plt Count 279 MPV 9.8 Immature Gran % (Auto) 0.5 H Neut % (Auto) 82.4 H Lymph % (Auto) 8.0 L [place] % (Auto) 8.8 Eos % (Auto) 0.0 Baso % (Auto) 0.3 Lymph # (Auto) 1.2 [place] # (Auto) 1.4 H Eos # (Auto) 0.0 Baso # (Auto) 0.0 Abs Immat Gran (auto) 0.07 H Absolute Neuts (auto) 12.6 H Absolute Nucleated RBC 0.000 Nucleated RBC % (auto) 0.0 Sodium 139 Potassium 4.0 Chloride 104 Carbon Dioxide 24 Anion Gap 15 BUN 43 H Creatinine 1.55 H Estim Creat Clear Calc 51.5 Estimated GFR 45 Random Glucose 103 Calcium 10.1 D Magnesium 2.3 Total Bilirubin 0.7 Direct Bilirubin 0.3 AST 22 ALT 22 Alkaline Phosphatase 66 Total Protein 7.8 Albumin 4.9 Urine Color Dark Yellow Urine Appearance Cloudy Urine pH 5.0 Ur Specific [place] 1.025 Urine Protein 30 (1+) H Urine Glucose (UA) Negative Urine Ketones 15 Urine Blood Large (3+) H Urine Nitrite Negative Ur Leukocyte Esterase Moderate (2+) H Urine RBC >20 H Urine WBC >50 H Ur Squamous Epith Cells 0-2 Urine Bacteria None Seen Hyaline Casts 3-5 Influenza Type A (PCR) NEGATIVE Influenza Type B (PCR) NEGATIVE RSV RNA Qual (PCR) NEGATIVE SARS-CoV-2 RNA (RT-PCR) NEGATIVE S. pyogenes GrpA MIRACLE Negative Imaging CT scan - abdomen: Attestation: I personally reviewed and interpreted this imaging study as follows: Radiologist's impression: ITS Impressions Abdomen/Pelvis CT 08/18/25 13:00 IMPRESSION: Severe right hydronephrosis secondary to a 12 mm UPJ calculus. Electronically signed by: Chetan Howard MD 08/18/2025 01:16 PM [facility] [place] Discharge Plan Discharge Anticipated Discharge Date/Time: 08/19/25 15:00 Patient Disposition: Home, Self-Care Discharge Diagnosis: proximal ureteric stone Referrals: Clyde Bruner, [employer] [Primary Care Provider, Internal Medicine] - 1 Week Discharge Medications: New celecoxib 100 mg capsule 100 mg PO BID 15 Days Qty: 30 0RF tranexamic acid 650 mg tablet 650 mg PO Q12H 15 Days Qty: 30 0RF tamsulosin 0.4 mg capsule 0.4 mg PO BEDTIME 14 Days Qty: 14 0RF Continued (DME) walker Misc See Rx Instructions .MEDSUPPLY Qty: 1 0RF Rx Instructions: Folding Front wheeled walker (DME) Raised toilet seat See Rx Instructions .ROUTE .MEDSUPPLY Qty: 1 0RF Rx Instructions: duration - 99 days (DME) SHOWER CHAIR See Rx Instructions .ROUTE .MEDSUPPLY Qty: 1 0RF Rx Instructions: As directed ferrous sulfate 325 mg (65 mg iron) Tablet 325 mg PO DAILY multivitamin Tablet 1 tab PO DAILY zinc acetate 50 mg (zinc) Capsule 50 mg PO DAILY cholecalciferol (vitamin D3) [Vitamin D3] 50 mcg (2,000 unit) Tablet 100 mcg PO DAILY Diet: Advance to usual diet Activity on Discharge: As tolerated Stand Alone Forms: Patient Portal Discharge page Print Language: Setswana Care Plan Goals: Stones Health Concerns: Stones Plan of Treatment: Stone Assessment: Stone Patient Instructions: Ureteral Stent Placement (DC)
--- NOTE | 2025-08-19 10:05 | P.PNUR_ITS ---
Subjective Subjective Date of Service: 08/19/25 Interval history: Persistent right-sided flank pain Satisfy criteria TAMARA stage 1 acute renal injury greater than 1.5 times baseline creatinine Plan for procedure today Physical Exam 2 Vital Signs: Vital Signs: Last Vital Signs Temp 97.8 F 08/19/25 09:54 Pulse 75 08/19/25 09:54 Resp 15 08/19/25 09:54 BP 113/60 08/19/25 09:54 Pulse Ox 92 08/19/25 09:54 O2 Del Method Room Air 08/19/25 09:54 BMI result Body Mass Index 29.3 Const: General: cooperative, healthy appearing, comfortable and no acute distress Orientation/consciousness: patient oriented x3 HEENT: Face and sinus: Yes normal facial exam Mouth: moist mucous membranes Neck: Neck: Yes normal visual inspection, Yes full ROM and Yes trachea midline Chest: Chest palpation & inspection: normal inspection of the chest Resp: Effort & Inspection: normal respiratory effort, able to speak in complete sentences and no respiratory distress GI: Inspection: Yes normal to inspection Back/Spine/Pelvis: Cervical Spine: normal cervical lordosis Thoracic/Lumbar Spine: thoracic and lumbar spine normal to inspection Skin: General skin exam: no rashes or lesions noted Neuro: General: patient oriented x3, tone normal and moves all extremities Extrem: General: Yes normal to inspection and Yes capillary refill normal Urology Results Labs 08/18/25 10:32 08/18/25 10:32 Labs: Laboratory Results - last 24 hr 08/18/25 10:32 WBC 15.3 H RBC 5.79 Hgb 15.4 Hct 47.8 MCV 82.6 MCH 26.6 L MCHC 32.2 RDW 15.6 Plt Count 279 MPV 9.8 Immature Gran % (Auto) 0.5 H Neut % (Auto) 82.4 H Lymph % (Auto) 8.0 L [place] % (Auto) 8.8 Eos % (Auto) 0.0 Baso % (Auto) 0.3 Lymph # (Auto) 1.2 [place] # (Auto) 1.4 H Eos # (Auto) 0.0 Baso # (Auto) 0.0 Abs Immat Gran (auto) 0.07 H Absolute Neuts (auto) 12.6 H Absolute Nucleated RBC 0.000 Nucleated RBC % (auto) 0.0 Sodium 139 Potassium 4.0 Chloride 104 Carbon Dioxide 24 Anion Gap 15 BUN 43 H Creatinine 1.55 H Estim Creat Clear Calc 51.5 Estimated GFR 45 Random Glucose 103 Calcium 10.1 D Magnesium 2.3 Total Bilirubin 0.7 Direct Bilirubin 0.3 AST 22 ALT 22 Alkaline Phosphatase 66 Total Protein 7.8 Albumin 4.9 Urine Color Dark Yellow Urine Appearance Cloudy Urine pH 5.0 Ur Specific [place] 1.025 Urine Protein 30 (1+) H Urine Glucose (UA) Negative Urine Ketones 15 Urine Blood Large (3+) H Urine Nitrite Negative Ur Leukocyte Esterase Moderate (2+) H Urine RBC >20 H Urine WBC >50 H Ur Squamous Epith Cells 0-2 Urine Bacteria None Seen Hyaline Casts 3-5 Influenza Type A (PCR) NEGATIVE Influenza Type B (PCR) NEGATIVE RSV RNA Qual (PCR) NEGATIVE SARS-CoV-2 RNA (RT-PCR) NEGATIVE S. pyogenes GrpA MIRACLE Negative Progress Note: A&P Assessment and plan (1) BPH w urinary obs/LUTS: Status: Acute (2) Gross hematuria: Status: Acute (3) Acute unilateral obstructive uropathy: Status: Acute (4) CLAUS (acute kidney injury): Status: Acute Plan Stent placement today Time Spent With Patient Time: Total time managing care of this patient today ____ minutes. Progress Note: Quality Stroke Does the patient have a stroke diagnosis?: No
[2025-08-19 10:06] VITALS: BP 118/61; PULSE 71; RESP 18; TEMP 37.5; O2SAT 93
[2025-08-19] MEDS: Tranexamic Acid 1,000 MG in 0.9 % Sodium Chloride 50 ML 360 MG IV (10:46)
--- NOTE | 2025-08-19 10:46 | MHC.CM.PN ---
PT REPORTS HE LIVES WITH HIS AND IS INDEPENDENT WITH ALL CARE HE HAS NO DME OR SERVICES HCP ON FILE PCP: [facility] PT CLEARED TO DC HOME TODAY WITH NO SERVICES WILL TRANSPORT
[2025-08-19 12:28] VITALS: BP 125/63; PULSE 67; RESP 20; TEMP 36.6; O2SAT 94
--- NOTE | 2025-08-20 13:12 | HO.POSTANES ---
Post Anesthesia Evaluation Post Anesthesia Evaluation Date of Service: 08/20/25 Anesthesia: Monitored Mental Status: Awake Pain Control: Satisfactory Nausea/Vomiting: None Hydration: Adequate Anesthesia-Related Issues: No Anes. Related Issues
== END 2025-08-19 12:29 | disposition home or self-care (01) | DRG 465 ==
LOC: HO.ED 15:24 → HO.EDOVER 16:15 → HO.S3 16:18
PROVIDERS: Physician Assistant; Admitting Provider Urology; Emergency Provider Emergency Medicine; PCP Nurse Practitioner Family; Visit Provider Urology
PROC: 0T768DZ Dilation of Right Ureter with Intraluminal Device, Via Natural or Artificial Opening Endoscopic (ICD-10-PCS; principal; 2025-08-19 09:00)
DX: N13.2 Hydronephrosis with renal and ureteral calculous obstruction (principal); N17.9 Acute kidney failure, unspecified; N13.8 Other obstructive and reflux uropathy; N40.1 Benign prostatic hyperplasia with lower urinary tract symptoms; Z20.822 Contact with and (suspected) exposure to COVID-19; Z87.891 Personal history of nicotine dependence; Z79.899 Other long term (current) drug therapy
CPT/HCPCS: 36415; 74177; 80048; 80076; 81001; 83735; 85025; 87040; 87086; 87637; 87651; 99285; C1758; C1769; C2617; J0696; J1100; J1885; J2003; J2151; J2405; J2704; J3010; Q9967

== ENCOUNTER → 2025-08-18 10:30 | Outpatient (BNV) | payer OTHER, SELFPAY | PROVIDERS: Emergency Provider Emergency Medicine; PCP Nurse Practitioner Family; Visit Provider Urology | DX: N40.1 Benign prostatic hyperplasia with lower urinary tract symptoms (principal); N13.8 Other obstructive and reflux uropathy; R31.0 Gross hematuria; N13.9 Obstructive and reflux uropathy, unspecified; N17.9 Acute kidney failure, unspecified; N20.0 Calculus of kidney; N13.30 Unspecified hydronephrosis; N20.1 Calculus of ureter; R94.4 Abnormal results of kidney function studies | CPT/HCPCS: 52332; 74420; 99238; 99499 ==

== ENCOUNTER → 2025-08-18 12:37 | Outpatient (BNV) | payer OTHER, SELFPAY | PROVIDERS: Emergency Provider Emergency Medicine; PCP Nurse Practitioner Family; Visit Provider Radiology Diagnostic Radiology | DX: N13.2 Hydronephrosis with renal and ureteral calculous obstruction (principal) | CPT/HCPCS: 74177 ==